=== PATIENT | male | born 1965 | race Caucasian/White ===

== ENCOUNTER 2017-04-18 | Emergency (ER) | payer MEDICAID, SELFPAY ==
[2017-04-18 00:02] VITALS: BP 128/71; PULSE 91; RESP 16; TEMP 36.3; O2SAT 94; BMI 39.6
--- NOTE | 2017-04-18 00:09 | ED.VISSUMM ---
- ER Visit Summary Date of Service: 04/18/17 Chief Complaint: Alcohol intoxication History of Present Illness: The patient is a 51 M since to the emergency department with alcohol intoxication. Patient has reported history of withdrawal seizure. He states that he has been sober for almost 3 and half years. He started drinking again 3 days ago. He states that he has been trying to wean himself off today. Tonight, woody was called because the patient was apparently having reported hallucinations. There was call out for seizure, but there was no seizure activity reported on squad arrival. The patient does have a documented history of pseudoseizures. He states that he was hearing voices tonight also. He denies being suicidal. The patient does appear to be intoxicated. He denies any recent trauma. He has had no recent change in medications. Physical Examination: Vital signs reviewed General: Well-nourished, well-developed Head: Normocephalic, atraumatic Eyes: Pupils equal and reactive, extraocular muscles intact Neck, supple, no lymphadenopathy Heart: Regular rate and rhythm Respiratory: No distress, clear bilaterally Abdomen: Soft, nontender, nondistended, no peritoneal signs Back: Nontender Extremities: Nontender, no edema, no cords Skin: Normal color no rash Neuro: Alert and oriented, no focal or lateralizing deficits Test Results: Screening labs relatively unremarkable. Patient is markedly intoxicated. Emergency Department Course and Treatment: Patient presents with alcohol intoxication. He does have a history of pseudoseizures. The patient states that he felt like he was in withdrawal. He was markedly intoxicated. I initially gave him a dose of oral Librium. He states he felt like it was not working. I did try to convince him that given his history of abstinence and the fact is only been drinking for 2 days and is currently intoxicated that the chances withdrawal is very very low. Patient was more agitated, likely secondary to his alcohol intoxication. He was given Geodon. The patient did have a pseudoseizure. He had dysrhythmic shaking. A did have a conversation with him during this. He was able to answer questions appropriately while having his pseudoseizure. The patient has no evidence of acute withdrawal. I do feel that the bulk of his presenting symptoms are because of his alcohol abuse. The patient will be observed until clinically sober. As long as his repeat evaluation is unremarkable, he will likely be discharged home. If there is change to plan, addendum will be added. Treatment Plan: [] Disposition: Likely discharge Impression: 1. Alcohol intoxication 2. Pseudoseizure This note was generated with [employer] dictation software. It may contain incorrect words, spelling, and punctuation that were not noted in review of the chart prior to signing ED Disposition - Plan for ED Patient: Chief Complaint: ETOH Intox Instructions: ED Alcohol Intoxication Referrals: Edison Shannon MD [Primary Care Provider] -
[2017-04-18] MEDS: chlordiazePOXIDE 25 MG Capsule 50 MG PO (00:21)
[2017-04-18 00:33] LABS: Absolute Lymphocyte Count 3.38 X10^3/ul (0.83-4.51); Absolute Neutrophil Count 7.6 X10^3/uL (2.0-7.7); Basophil# 0.06 X10^3/uL; Basophil% 0.5 % (0-1); Eosinophil# 0.24 X10^3/uL; Hematocrit 43.2 % (40-54); Hemoglobin 15.2 g/dl (13.0-16.5); Lymphocyte # 3.38 X10^3/ul (4.0); Lymphocyte % 28.6 % (19-41); Mean Corp Hgb Conc 35.2 g/gl (32-36); Mean Corpuscular Hgb 31.9 pg (27.0-32.0); Mean Corpuscular Volume 90.8 fL (80-94); Mean Platelet Vol. 9.3 fl (6.2-12.0); Monocyte# 0.52 X10^3/uL; Monocyte% 4.4 % (0-10); Neutrophil # 7.58 X10^3/uL (2.7-7.7); Neutrophil % 64.3 % (47-70); Platelet Count 281 K/mm3 (150-450); RBC Distribution Width CV 14.7 % (11.6-14.6); RBC Distribution Width SD 48.4 fl (35.1-43.9); Red Blood Count 4.76 M/mm3 (4.6-6.2); White Blood Count 11.8 K/mm3 (4.4-11.0)
[2017-04-18 00:34] LABS: POSITIVE COUNT NO; POSITIVE DIFFERENTIAL NO; POSITIVE MORPHOLOGY NO
[2017-04-18 00:45] LABS: Anion Gap 13 (5-15); BUN 8 mg/dL (7-18); BUN/Creat Ratio 10.2 RATIO (10-20); Calcium,Total 8.5 mg/dL (8.5-10.1); Chloride 113 mmol/L (98-107); Creatinine, Serum 0.79 mg/dL (0.70-1.30); EST Glomerular Filtration Rate 111 mL/min (>60); Est Glom Filt Rate - Afr Amer 134 mL/min (>60); Estimated Creatinine Clearance 115.51 ml/min; Glucose 70 mg/dL (74-106); Potassium 3.4 mmol/L (3.5-5.1); Sodium Level 148 mmol/L (136-145)
[2017-04-18 00:46] LABS: Vista UDS pH Range 6
[2017-04-18 01:03] LABS: Amphetamine Urine VISTA NEGATIVE (<1000 ng/mL); Barbiturate Urine VISTA NEGATIVE (< 200 ng/mL); Benzodiazepine Urine VISTA NEGATIVE (< 200 ng/mL); Cocaine Urine VISTA NEGATIVE (< 300 ng/mL); Ecstacy Urine VISTA NEGATIVE (< 500 ng/mL); Methadone Urine VISTA NEGATIVE (< 300 ng/mL); PCP Urine VISTA NEGATIVE (< 25 ng/mL); THC Urine VISTA NEGATIVE (< 50 ng/mL)
--- NOTE | 2017-04-18 01:05 | ED.RN ---
lab called with critical lab results. etoh level 369. Dr. hou made aware. no new orders at this time
[2017-04-18 01:27] VITALS: BP 133/76; PULSE 86; RESP 18; O2SAT 97
[2017-04-18] MEDS: Ziprasidone IM 20 MG/ML VIAL IM (01:31)
--- NOTE | 2017-04-18 01:47 | NURSING ---
CALLED TO BEDSIDE BY S/O FOR PT HAVING A SEIZURE. MD AT BEDSIDE. PT WAS ABLE TO ANSWER QUESTIONS APPROPRIATELY WHILE SHAKING HIS UPPER BODY. PT TOLD WE WOULD BE OBSERVING HIM OVERNIGHT
[2017-04-18 03:00] VITALS: RESP 14
[2017-04-18 05:00] VITALS: RESP 15
[2017-04-18 06:41] VITALS: BP 126/71; PULSE 78; RESP 14; O2SAT 94
[2017-04-18 06:56] VITALS: BP 126/71
== END 2017-04-18 07:25 | disposition home or self-care (01) ==
PROVIDERS: Emergency Provider Emergency Medicine; Family Provider Family Medicine; PCP Family Medicine
DX: R56.9 Unspecified convulsions (principal); F10.129 Alcohol abuse with intoxication, unspecified; Y90.8 Blood alcohol level of 240 mg/100 ml or more; Z72.0 Tobacco use
CPT/HCPCS: 80048; 80307; 80320; 85025; 96372; 99284; G0480; J3486

== ENCOUNTER 2017-04-19 12:27 | Inpatient (IN) | payer MEDICAID, SELFPAY ==
[2017-04-19] VITALS (9 sets, daily range): BP systolic 129–142; BP diastolic 73–85; PULSE 77–98; RESP 16–22; TEMP 36.2–37; O2SAT 92–96; BMI 35.4
--- NOTE | 2017-04-19 13:13 | ED.DCSUM_ITS ---
- ER Visit Summary Date of Service: 04/19/17 Chief Complaint: Alcohol withdrawal History of Present Illness: The patient is a 51 M with a history of alcohol withdrawal. The patient was sober for 3 months and then started drinking about 2 weeks ago. He drank about a half a gallon of hard liquor daily for a week. His last drink was 3 days ago. He started to have withdrawal symptoms yesterday. He is shaking and he had similar symptoms in the past with withdrawal, DTs, and seizures. Physical Examination: Afebrile and vital signs unremarkable. The patient has a tremor, but otherwise appears in no acute distress. He is alert and oriented. Sitting upright. Heart regular. Lungs clear. Abdomen soft. No focal or lysing neurologic abnormalities. Test Results and ED Course: Labs, tox, alcohol level pending. Patient had seizure precautions and was treated with Ativan and phenobarbital while awaiting results. Patient symptoms improved after Ativan. His workup was unremarkable. Received additional dose of Ativan. I spoke with the hospitalist who will admit. Treatment Plan: As above Disposition: Admission Impression: 1. Alcohol withdrawal This note was generated with [employer] dictation software. It may contain incorrect words, spelling, and punctuation that were not noted in review of the chart prior to signing ED Disposition - Plan for ED Patient: Chief Complaint: ETOH Intox Referrals: Edison Shannon MD [Primary Care Provider] -
[2017-04-19] MEDS: LORazepam 2 MG/ML Syringe 1 MG IV ×2 (13:36→14:53)
[2017-04-19 13:53] LABS: Absolute Lymphocyte Count 1.47 X10^3/ul (0.83-4.51); Absolute Neutrophil Count 3.5 X10^3/uL (2.0-7.7); Basophil# 0.04 X10^3/uL; Basophil% 0.7 % (0-1); Eosinophil# 0.13 X10^3/uL; Eosinophils% 2.3 % (0-5); Hematocrit 41.6 % (40-54); Hemoglobin 14.4 g/dl (13.0-16.5); Lymphocyte # 1.47 X10^3/ul (4.0); Lymphocyte % 26.2 % (19-41); Mean Corp Hgb Conc 34.6 g/gl (32-36); Mean Corpuscular Hgb 31.5 pg (27.0-32.0); Mean Platelet Vol. 9.4 fl (6.2-12.0); Monocyte# 0.48 X10^3/uL; Monocyte% 8.6 % (0-10); Neutrophil # 3.48 X10^3/uL (2.7-7.7); Platelet Count 240 K/mm3 (150-450); RBC Distribution Width CV 14.4 % (11.6-14.6); RBC Distribution Width SD 47.2 fl (35.1-43.9); Red Blood Count 4.57 M/mm3 (4.6-6.2); White Blood Count 5.6 K/mm3 (4.4-11.0)
[2017-04-19 13:58] LABS: POSITIVE COUNT NO; POSITIVE DIFFERENTIAL NO; POSITIVE MORPHOLOGY NO
[2017-04-19 13:59] LABS: ALB/GLOB Ratio 1.1 RATIO (0.9-2.4); AST(SGOT) 20 U/L (15-37); Alanine Aminotransfer ALT/SGPT 30 U/L (16-61); Albumin, Serum 3.8 g/dL (3.2-5.0); Alkaline Phosphatase 67 U/L (45-117); Anion Gap 8 (5-15); BUN 6 mg/dL (7-18); BUN/Creat Ratio 6.7 RATIO (10-20); Calcium,Total 8.8 mg/dL (8.5-10.1); Chloride 109 mmol/L (98-107); EST Glomerular Filtration Rate 95 mL/min (>60); Est Glom Filt Rate - Afr Amer 115 mL/min (>60); Estimated Creatinine Clearance 98.19 ml/min; Globulin 3.4 g/dL (2.2-4.2); Glucose 101 mg/dL (74-106); Potassium 3.8 mmol/L (3.5-5.1); Protein, Total 7.2 g/dL (6.4-8.2); Sodium Level 142 mmol/L (136-145)
[2017-04-19 14:49] LABS: Amphetamine Urine VISTA NEGATIVE (<1000 ng/mL); Barbiturate Urine VISTA POSITIVE (< 200 ng/mL); Benzodiazepine Urine VISTA POSITIVE (< 200 ng/mL); Cocaine Urine VISTA NEGATIVE (< 300 ng/mL); Ecstacy Urine VISTA POSITIVE (< 500 ng/mL); Methadone Urine VISTA NEGATIVE (< 300 ng/mL); PCP Urine VISTA NEGATIVE (< 25 ng/mL); THC Urine VISTA POSITIVE (< 50 ng/mL); Vista UDS pH Range 6
--- NOTE | 2017-04-19 15:01 | HP.PCM_ITS ---
Problem List (1) Alcohol withdrawal Status: Acute Qualifiers: Complication of substance-induced condition: with delirium Qualified Code(s ): F10.231 - Alcohol dependence with withdrawal delirium (2) Alcohol withdrawal delirium, acute, hyperactive Status: Acute (3) Benign essential hypertension Status: Chronic (4) Bipolar 1 disorder Status: Chronic (5) Continuous chronic alcoholism Status: Chronic Comment: up to 1 gallon vodka daily (6) Delirium tremens Status: Chronic (7) History of kidney stones Status: Chronic (8) Homelessness Status: Chronic (9) Psychiatric pseudoseizure Status: Chronic (10) Tobacco use Status: Chronic (11) DM type 2 (diabetes mellitus, type 2) Status: Chronic Qualifiers: Diabetes mellitus complication status: without complication Diabetes mellitus roasterman insulin use: without roasterman use Qualified Code(s): E11.9 - Type 2 diabetes mellitus without complications History of Present Illness Date of Admission: 04/19/17 Chief Complaint: Tremulousness The patient is a 51 year old M past medical history is none for hypertension, diabetes mellitus type 2 as well as chronic alcohol use is entered with tremulousness. Patient reports his last alcohol use being almost 48 hours prior to his admission. He admitted to drinking almost half a gallon of whiskey on a daily basis. He had apparently undergone detox 3 years previously. He remained sober for 2 and half years prior to relapsing. Patient on further questioning admitted to auditory hallucinations. Denied visual hallucinations. Patient denies any seizures. Presented to the emergency department and assessment of acute alcohol withdrawal with hyperactivity was made admitted to regular nursing floor for stabilization Past Medical History Past Medical History (Chronic Problems): Chronic Problems DM type 2 (diabetes mellitus, type 2) (Chronic) Bipolar 1 disorder (Chronic) History of kidney stones (Chronic) Continuous chronic alcoholism (Chronic) up to 1 gallon vodka daily Tobacco use (Chronic) Psychiatric pseudoseizure (Chronic) Delirium tremens (Chronic) Homelessness (Chronic) Benign essential hypertension (Chronic) Allergies amoxicillin [Amoxicillin] Allergy (Verified 04/18/17 00:07) Anaphylaxis Penicillins Allergy (Verified 04/18/17 00:07) Anaphylaxis Home Medications: Ambulatory Orders Medication Instructions Recorded Metformin HCl [Glucophage] 500 mg PO DAILY 04/23/16 Amlodipine [Norvasc] 5 mg PO DAILY 12/31/16 Surgical History: no surgical history Smoking Status: Current every day smoker - *Family History Maternal History Items: No pertinent history Paternal History Items: No pertinent history Sibling History Items: No pertinent history Review of Systems Constitutional: Denies: Anorexia, Chills, Fever, Night Sweats, Weight Change HEENT: Denies: Head Aches, Sinus Congestion, Sinus Drainage Cardiovascular: Reports: Palpitations. Denies: Chest Pain, Orthopnea, Paroxysmal Noc. Dyspnea Respiratory: Denies: Cough, Shortness of breath at rest, Shortness of breath upon exertion, Sputum production Gastrointestinal: Denies: Abdominal Pain, Hematemesis, Hematochezia, Nausea, Melena, Vomiting Genitourinary: Denies: Dysuria, Frequency, Hematuria, Urgency Musculoskeletal: Denies: Joint Pain, Joint Tenderness Skin: Denies: Rash Neurological: Reports: Tremor. Denies: Focal weakness, Numbness, Tingling, Seizures Psychiatric: Reports: Anxiety. Denies: Homicidal Ideations, Suicidal Ideations Hematologic/ Lymphatic: Denies: Easy Bruising, Easy Bleeding VTE Information - Inpt Only VTE Present on Admission: No VTE Mechan Device Prophylaxis: Knee High ELBA Hose VTE Pharm Prophylaxis ordered?: Yes Patient Problems: Active and Suspected Problems Alcohol withdrawal (Acute) Alcohol withdrawal delirium, acute, hyperactive (Acute) Objective: GENERAL: cooperative HEENT: Clear conjunctiva, NECK; supple, normal thyroid, CHEST: Clear to auscultation bilaterally, HEART: Regular S1 S2, no audible murmurs ABDOMEN: soft, non-tender, normoactive bowel sounds, RECTAL: deferred EXTREMITIES: No edema, no clubbing, no cyanosis. 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 SKIN: No lesions no erythema, - Physical Exam Vital Signs Temp Pulse Resp BP Pulse Ox 97.2 F L 93 16 139/78 H 92 04/19/17 12:29 04/19/17 14:22 04/19/17 14:22 04/19/17 14:22 04/19/17 13:38 Oxygen Delivery Method Room Air Weight: 108.862 kg Body Mass Index (BMI) 35.4 Finger Stick Blood Glucose 98 Laboratory Tests Past 24 Hrs 04/19/17 04/19/17 04/19/17 13:30 13:30 13:30 WBC 5.6 RBC 4.57 L Hgb 14.4 Hct 41.6 MCV 91.0 MCH 31.5 MCHC 34.6 RDW 14.4 RDW Differential 47.2 H Plt Count 240 MPV 9.4 Immature Gran % (Auto) 0.200 Neut % (Auto) 62.0 Lymph % (Auto) 26.2 Florence % (Auto) 8.6 Eos % (Auto) 2.3 Baso % (Auto) 0.7 Absolute Neuts (auto) 3.5 Absolute Lymphs (auto) 1.47 Total Counted Not Reportable Sodium 142 Potassium 3.8 Chloride 109 H Carbon Dioxide 25.0 Anion Gap 8 BUN 6 L Creatinine 0.90 Estim Creat Clear Calc 98.19 Est GFR (MDRD) Af Amer 115 Est GFR (MDRD) Non-Af 95 BUN/Creatinine Ratio 6.7 L Glucose 101 Calcium 8.8 Total Bilirubin 0.50 AST 20 ALT 30 Alkaline Phosphatase 67 Total Protein 7.2 Albumin 3.8 Globulin 3.4 Albumin/Globulin Ratio 1.1 Urine Opiates Screen Urine Methadone Screen Ur Barbiturates Screen Ur Phencyclidine Scrn Ur Amphetamines Screen U Methamphetamin-MDMA U Benzodiazepines Scrn Urine Cocaine Screen U Cannabinoids Screen Ur Drug Screen Comment Ethyl Alcohol 3.0 04/19/17 Unknown WBC RBC Hgb Hct MCV MCH MCHC RDW RDW Differential Plt Count MPV Immature Gran % (Auto) Neut % (Auto) Lymph % (Auto) Florence % (Auto) Eos % (Auto) Baso % (Auto) Absolute Neuts (auto) Absolute Lymphs (auto) Total Counted Sodium Potassium Chloride Carbon Dioxide Anion Gap BUN Creatinine Estim Creat Clear Calc Est GFR (MDRD) Af Amer Est GFR (MDRD) Non-Af BUN/Creatinine Ratio Glucose Calcium Total Bilirubin AST ALT Alkaline Phosphatase Total Protein Albumin Globulin Albumin/Globulin Ratio Urine Opiates Screen NEGATIVE Urine Methadone Screen NEGATIVE Ur Barbiturates Screen POSITIVE H Ur Phencyclidine Scrn NEGATIVE Ur Amphetamines Screen NEGATIVE U Methamphetamin-MDMA POSITIVE H U Benzodiazepines Scrn POSITIVE H Urine Cocaine Screen NEGATIVE U Cannabinoids Screen POSITIVE H Ur Drug Screen Comment Ethyl Alcohol Assessment/Plan Active and Suspected Problems Alcohol withdrawal (Acute) Alcohol withdrawal delirium, acute, hyperactive (Acute) Patient is a 51 year old gentleman with history of chronic alcohol dependence presenting with acute alcohol withdrawal 1. Acute alcohol withdrawal: Patient has been admitted to regular nursing floor for stabilization using Ativan. Patient was also placed on supplemental multivitamin, folic acid as well as thiamine. He was counseled on cessation prior to being admitted 2. Diabetes mellitus type 2 on metformin: Did continue in addition to Accu- Cheks before meals and at bedtime with sliding scale coverage 3. Morbid obesity with BMI of 35.4 weight loss recommended 4. Hypertension-blood pressure controlled, home medications continued with dose adjustment as needed 5. History of pseudoseizures 6. Tobacco dependence counseled on cessation, offered nicotine patch for tobacco cravings 7. DVT prophylaxis SC Raquel Code Visit Inpatient E&M: 34394 Init Hosp L3
[2017-04-19] MEDS: QUEtiapine 25 MG Tablet PO ×2 (15:57→22:32)
[2017-04-19 16:31] LABS: Bedside Glucose 125 mg/dL (70-110)
[2017-04-19] MEDS: Glucerna Shake 120 ML LIQUID PO (16:58)
[2017-04-19] MEDS: LORazepam 1 MG Tablet PO ×2 (16:58→21:03)
[2017-04-19] MEDS: cloNIDine HCl 0.1 MG Tablet PO ×2 (16:58→21:03)
--- NOTE | 2017-04-19 17:42 | NURSING ---
SEVERE TREMORS CONTINUE AFTER SCHEDULED & PRN MEDS. DR JARVIS NOTIFIED & NEW ORDER RECEIVED.
[2017-04-19] MEDS: LORazepam 2 MG/ML Syringe IV (17:53)
[2017-04-19] MEDS: 0.9% NaCl Peripheral Flush Adult/Peds IV ×2 (17:53→21:03)
[2017-04-19] MEDS: Dicyclomine 10 MG Capsule 20 MG PO (21:03)
[2017-04-19] MEDS: Methocarbamol 750 MG Tablet PO (21:03)
[2017-04-19] MEDS: Pramipexole Di-HCl 0.25 MG Tablet PO (22:30)
[2017-04-20] VITALS (30 sets, daily range): BP systolic 102–150; BP diastolic 70–89; PULSE 46–81; RESP 16–22; TEMP 36.1–37; O2SAT 90–98
[2017-04-20] MEDS: traZODone 50 MG Tablet PO (00:27)
[2017-04-20] MEDS: LORazepam 2 MG/ML Syringe IV ×7 (00:27→11:35)
[2017-04-20] MEDS: 0.9% NaCl Peripheral Flush Adult/Peds IV ×3 (00:30→03:12)
[2017-04-20] MEDS: cloNIDine HCl 0.1 MG Tablet PO ×2 (01:38→06:15)
[2017-04-20] MEDS: Dicyclomine 10 MG Capsule 20 MG PO (03:12)
[2017-04-20] MEDS: Methocarbamol 750 MG Tablet PO (03:12)
[2017-04-20] MEDS: QUEtiapine 25 MG Tablet PO (06:15)
[2017-04-20 06:45] LABS: Bedside Glucose 105 mg/dL (70-110)
[2017-04-20 07:36] LABS: Bedside Glucose 110 mg/dL (70-110)
--- NOTE | 2017-04-20 07:42 | PCM.PN.HOSP ---
Patient Problems: Active and Suspected Problems Alcohol withdrawal (Acute) Alcohol withdrawal delirium, acute, hyperactive (Acute) Subjective: Patient is a 51 year old gentleman with history of chronic alcohol dependence presenting with acute alcohol withdrawal. Was admitted to regular nursing floor however he became more tremulous with severe auditory hallucination decision was made to transfer patient to the ICU on 04/20/2016 Objective: GENERAL: cooperative HEENT: Clear conjunctiva, NECK; supple, normal thyroid, CHEST: Clear to auscultation bilaterally, HEART: Regular S1 S2, no audible murmurs ABDOMEN: soft, non-tender, normoactive bowel sounds, RECTAL: deferred EXTREMITIES: No edema, no clubbing, no cyanosis. NECK CUTTER: Awake, no lateralizing signs. SKIN: No lesions no erythema, Vitals/I&O's: Vital Signs Temp Pulse Resp BP Pulse Ox 98.5 F 80 18 130/89 H 93 04/20/17 07:39 04/20/17 07:39 04/20/17 07:39 04/20/17 07:39 04/20/17 07:39 Oxygen Delivery Method Room Air Weight: 109 kg Intake and Output for Last 24 Hours 04/18/17 04/19/17 04/20/17 23:59 23:59 23:59 Intake Total 560 / 560 Balance 560 / 560 Laboratory Results 04/19/17 16:28: POC Glucose 125 H 04/19/17 : Urine Opiates Screen NEGATIVE, Urine Methadone Screen NEGATIVE, Ur Barbiturates Screen POSITIVE H, Ur Phencyclidine Scrn NEGATIVE, Ur Amphetamines Screen NEGATIVE, U Methamphetamin-MDMA POSITIVE H, U Benzodiazepines Scrn POSITIVE H, Urine Cocaine Screen NEGATIVE, U Cannabinoids Screen POSITIVE H, Ur Drug Screen Comment 04/20/17 06:33: POC Glucose 105 04/20/17 07:28: POC Glucose 110 Current Medications Amlodipine Besylate (Norvasc) 5 mg PO DAILY [facility] Clonidine (Catapres) 0.1 mg PO Q4 [facility] Last Admin: 04/20/17 06:15 Dose: 0.1 mg Dicyclomine HCl (Bentyl) 20 mg PO Q6H PRN PRN PRN Reason: abdominal discomfort Last Admin: 04/20/17 03:12 Dose: 20 mg Enoxaparin Sodium (Lovenox) 40 mg SC DAILY@1000 [facility] Hydroxyzine Pamoate (Vistaril) 50 mg PO Q6H PRN PRN PRN Reason: Mild Anxiety (score 1/3) Last Admin: 04/20/17 06:15 Dose: 50 mg Thiamine HCl 200 mg/ Sodium (Chloride) 52 mls @ 200 mls/hr IV DAILY [facility] Lorazepam (Ativan) 1 mg PO Q4 [facility] PRN Reason: Taper Stop: 04/22/17 17:59 Last Admin: 04/20/17 06:19 Dose: Not Given Lorazepam (Ativan) 2 mg PO Q2H PRN PRN; Protocol PRN Reason: CIWA score > 8 but <15 Lorazepam (Ativan) 2 mg PO UD PRN; Protocol PRN Reason: CIWA score >/=15. Lorazepam (Ativan) 2 mg IV Q2H PRN PRN; Protocol PRN Reason: CIWA score > 8 but <15 Last Admin: 04/20/17 00:27 Dose: 2 mg Lorazepam (Ativan) 2 mg IV UD PRN; Protocol PRN Reason: CIWA score >/=15. Last Admin: 04/20/17 06:15 Dose: 2 mg Magnesium Hydroxide (Milk Of Magnesia) 30 ml PO DAILY PRN PRN PRN Reason: Constipation Metformin HCl (Glucophage) 500 mg PO DAILYCM [facility] Methocarbamol (Methocarbamol) 750 mg PO Q6H PRN PRN PRN Reason: Muscle Aches Last Admin: 04/20/17 03:12 Dose: 750 mg Nutritional Formula (Lactose Free) (Glucerna Shake) 120 ml PO 4X/DAY [facility] Last Admin: 04/19/17 21:04 Dose: Not Given Pramipexole Dihydrochloride (Mirapex) 0.25 mg PO Q12H PRN PRN PRN Reason: Restless legs Last Admin: 04/19/17 22:30 Dose: 0.25 mg Quetiapine Fumarate (Seroquel) 25 mg PO Q6H PRN PRN PRN Reason: Moderate Anxiety (score 2/3) Last Admin: 04/20/17 06:15 Dose: 25 mg Sodium Chloride () 5 - 30 ml IV UD PRN PRN Reason: SALINE FLUSH Last Admin: 04/20/17 03:12 Dose: 10 ml Trazodone HCl (Desyrel) 50 mg PO QHS [facility] Last Admin: 04/20/17 00:27 Dose: 50 mg Assessment/Plan Active and Suspected Problems Alcohol withdrawal (Acute) Alcohol withdrawal delirium, acute, hyperactive (Acute) Patient is a 51 year old gentleman with history of chronic alcohol dependence presenting with acute alcohol withdrawal 1. Acute alcohol withdrawal: Patient has been admitted to regular nursing floor for stabilization using Ativan. Patient was also placed on supplemental multivitamin, folic acid as well as thiamine. He was counseled on cessation prior to being admitted. 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 Diabetes mellitus type 2 on metformin: Did continue in addition to Accu-Cheks before meals and at bedtime with sliding scale coverage 3. Morbid obesity with BMI of 35.4 weight loss recommended 4. Hypertension-blood pressure controlled, home medications continued with dose adjustment as needed 5. History of pseudoseizures 6. Tobacco dependence counseled on cessation, offered nicotine patch for tobacco cravings 7. DVT prophylaxis SC Lovenox Code Visit Inpatient E&M: 58411 Subs Hosp L3
--- NOTE | 2017-04-20 07:49 | PN_ITS ---
Patient Problems: Active and Suspected Problems Alcohol withdrawal (Acute) Alcohol withdrawal delirium, acute, hyperactive (Acute) Subjective: Patient is a 51 year old gentleman with history of chronic alcohol dependence presenting with acute alcohol withdrawal. Was admitted to regular nursing floor however he became more tremulous with severe auditory hallucination decision was made to transfer patient to the ICU on 04/20/2016 Objective: GENERAL: cooperative HEENT: Clear conjunctiva, NECK; supple, normal thyroid, CHEST: Clear to auscultation bilaterally, HEART: Regular S1 S2, no audible murmurs ABDOMEN: soft, non-tender, normoactive bowel sounds, RECTAL: deferred EXTREMITIES: No edema, no clubbing, no cyanosis. VISUAL ARTIST: Awake, no lateralizing signs. SKIN: No lesions no erythema, Vitals/I&O's: Vital Signs Temp Pulse Resp BP Pulse Ox 98.5 F 80 18 130/89 H 93 04/20/17 07:39 04/20/17 07:39 04/20/17 07:39 04/20/17 07:39 04/20/17 07:39 Oxygen Delivery Method Room Air Weight: 109 kg Intake and Output for Last 24 Hours 04/18/17 04/19/17 04/20/17 23:59 23:59 23:59 Intake Total 560 / 560 Balance 560 / 560 Laboratory Results 04/19/17 16:28: POC Glucose 125 H 04/19/17 : Urine Opiates Screen NEGATIVE, Urine Methadone Screen NEGATIVE, Ur Barbiturates Screen POSITIVE H, Ur Phencyclidine Scrn NEGATIVE, Ur Amphetamines Screen NEGATIVE, U Methamphetamin-MDMA POSITIVE H, U Benzodiazepines Scrn POSITIVE H, Urine Cocaine Screen NEGATIVE, U Cannabinoids Screen POSITIVE H, Ur Drug Screen Comment 04/20/17 06:33: POC Glucose 105 04/20/17 07:28: POC Glucose 110 Current Medications Amlodipine Besylate (Norvasc) 5 mg PO DAILY [facility] Clonidine (Catapres) 0.1 mg PO Q4 [facility] Last Admin: 04/20/17 06:15 Dose: 0.1 mg Dicyclomine HCl (Bentyl) 20 mg PO Q6H PRN PRN PRN Reason: abdominal discomfort Last Admin: 04/20/17 03:12 Dose: 20 mg Enoxaparin Sodium (Lovenox) 40 mg SC DAILY@1000 [facility] Hydroxyzine Pamoate (Vistaril) 50 mg PO Q6H PRN PRN PRN Reason: Mild Anxiety (score 1/3) Last Admin: 04/20/17 06:15 Dose: 50 mg Thiamine HCl 200 mg/ Sodium (Chloride) 52 mls @ 200 mls/hr IV DAILY [facility] Lorazepam (Ativan) 1 mg PO Q4 [facility]IER PRN Reason: Taper Stop: 04/22/17 17:59 Last Admin: 04/20/17 06:19 Dose: Not Given Lorazepam (Ativan) 2 mg PO Q2H PRN PRN; Protocol PRN Reason: CIWA score > 8 but <15 Lorazepam (Ativan) 2 mg PO UD PRN; Protocol PRN Reason: CIWA score >/=15. Lorazepam (Ativan) 2 mg IV Q2H PRN PRN; Protocol PRN Reason: CIWA score > 8 but <15 Last Admin: 04/20/17 00:27 Dose: 2 mg Lorazepam (Ativan) 2 mg IV UD PRN; Protocol PRN Reason: CIWA score >/=15. Last Admin: 04/20/17 06:15 Dose: 2 mg Magnesium Hydroxide (Milk Of Magnesia) 30 ml PO DAILY PRN PRN PRN Reason: Constipation Metformin HCl (Glucophage) 500 mg PO DAILYCM [facility] Methocarbamol (Methocarbamol) 750 mg PO Q6H PRN PRN PRN Reason: Muscle Aches Last Admin: 04/20/17 03:12 Dose: 750 mg Nutritional Formula (Lactose Free) (Glucerna Shake) 120 ml PO 4X/DAY [facility] Last Admin: 04/19/17 21:04 Dose: Not Given Pramipexole Dihydrochloride (Mirapex) 0.25 mg PO Q12H PRN PRN PRN Reason: Restless legs Last Admin: 04/19/17 22:30 Dose: 0.25 mg Quetiapine Fumarate (Seroquel) 25 mg PO Q6H PRN PRN PRN Reason: Moderate Anxiety (score 2/3) Last Admin: 04/20/17 06:15 Dose: 25 mg Sodium Chloride () 5 - 30 ml IV UD PRN PRN Reason: SALINE FLUSH Last Admin: 04/20/17 03:12 Dose: 10 ml Trazodone HCl (Desyrel) 50 mg PO QHS [facility] Last Admin: 04/20/17 00:27 Dose: 50 mg Assessment/Plan Active and Suspected Problems Alcohol withdrawal (Acute) Alcohol withdrawal delirium, acute, hyperactive (Acute) Patient is a 51 year old gentleman with history of chronic alcohol dependence presenting with acute alcohol withdrawal 1. Acute alcohol withdrawal: Patient has been admitted to regular nursing floor for stabilization using Ativan. Patient was also placed on supplemental multivitamin, folic acid as well as thiamine. He was counseled on cessation prior to being admitted. Was transferred to ICU in view of his worsening DTs patient placed to bottom man 2. Diabetes mellitus type 2 on metformin: Did continue in addition to Accu- Cheks before meals and at bedtime with sliding scale coverage 3. Morbid obesity with BMI of 35.4 weight loss recommended 4. Hypertension-blood pressure controlled, home medications continued with dose adjustment as needed 5. History of pseudoseizures 6. Tobacco dependence counseled on cessation, offered nicotine patch for tobacco cravings 7. DVT prophylaxis SC Lovenox Code Visit Inpatient E&M: 14065 Subs Hosp L3
--- NOTE | 2017-04-20 08:19 | CON.PCM_ITS ---
Reason for Consult Date of Consultation: 04/20/17 Reason for Consultation: Alcohol withdrawal History of Present Illness: The patient is a 51-year-old male, with a history as outlined below, who presented to the emergency department on April 19 and acute alcohol withdrawal. The patient has a protracted course of alcohol dependence, consuming upwards of a gallon of hard liquor daily. The patient reportedly experienced a 3 month period of sobriety, prior to relapsing 2 weeks before his presentation to the emergency department. At the present time, the patient is too encephalopathic to obtain any additional history from. He does have a documented history of bipolar disorder along with tobacco use. The patient was initially been maintained on the general medical floor for his alcohol withdrawal symptoms. The patient was started on Ativan for withdrawal symptoms. However, overnight, does not appear that he received any benzodiazepines. During the morning hours of April 20, the patient was noted to be exceedingly tremulous with high CIWA scores, which prompted his transfer to the medical intensive care unit for ongoing management. Shortly upon his arrival, the patient was started on a Precedex drip. Throughout the course of the morning in the ICU, the patient did have 2 separate episodes of what appeared to be seizure activity. He was given IV Ativan on each occasion. I did call and briefly speak with neurology, who recommended that the patient could be placed on Keppra twice daily for alcohol withdrawal seizures. Past Medical History Past Medical History (Chronic Problems): Chronic Problems DM type 2 (diabetes mellitus, type 2) (Chronic) Bipolar 1 disorder (Chronic) History of kidney stones (Chronic) Continuous chronic alcoholism (Chronic) up to 1 gallon vodka daily Tobacco use (Chronic) Psychiatric pseudoseizure (Chronic) Delirium tremens (Chronic) Homelessness (Chronic) Benign essential hypertension (Chronic) Allergies amoxicillin [Amoxicillin] Allergy (Verified 04/18/17 00:07) Anaphylaxis Penicillins Allergy (Verified 04/18/17 00:07) Anaphylaxis Home Medications: Ambulatory Orders Medication Instructions Recorded Metformin HCl [Glucophage] 500 mg PO DAILY 04/23/16 Amlodipine [Norvasc] 5 mg PO DAILY 12/31/16 Surgical History: no surgical history Smoking Status: Current every day smoker - *Family History Maternal History Items: No pertinent history Paternal History Items: No pertinent history Sibling History Items: No pertinent history Review of Systems Constitutional: Denies: Chills, Fever HEENT: Denies: Head Aches, Sinus Congestion, Sinus Drainage Cardiovascular: Denies: Chest Pain, Palpitations Respiratory: Denies: Cough, Shortness of breath at rest, Sputum production Gastrointestinal: Denies: Abdominal Pain, Nausea, Vomiting Genitourinary: Denies: Dysuria Musculoskeletal: Reports: Back Pain Skin: Denies: Rash, Wounds Neurological: Reports: Confusion, Tremor Psychiatric: Reports: Anxiety, Depression Hematologic/ Lymphatic: Denies: Easy Bruising, Easy Bleeding Patient Problems: Active and Suspected Problems Alcohol withdrawal (Acute) Alcohol withdrawal delirium, acute, hyperactive (Acute) Objective: The patient's most recent lab work, culture data and imaging studies have all been personally reviewed. - Physical Exam General: No apparent distress, Lethargic HEENT: Atraumatic, Normocephalic Oral: No Gingival or Mucosal Lesions/ Ulcerations, Dry Mucosa Neck: Supple, No Nodes, Trachea Midline Lungs: No rhonchi, No wheeze, No rales, Diminished Cardiovascular: Regular rate, Regular Rhythm, Normal S1, Normal S2, No murmurs Abdomen: Bowel Sounds Present, Soft, Non Tender, Obese Extremities: No clubbing, No cyanosis, No edema Skin: No rashes, No breakdown Musculoskeletal: No Muscle Wasting Lymphatic: No Cervical, Supraclavicular, or Inguinal Adenopathy Neurological: - - Tremulous. No focal deficits. Psych/Mental Status: Anxious Vital Signs Temp Pulse Resp BP Pulse Ox 98.5 F 81 18 130/89 H 95 04/20/17 07:41 04/20/17 07:41 04/20/17 07:41 04/20/17 07:41 04/20/17 07:41 Oxygen Delivery Method Room Air Weight: 240 lb 4.862 oz Intake and Output for Last 24 Hours 04/18/17 04/19/17 04/20/17 23:59 23:59 23:59 Intake Total 560 / 560 Balance 560 / 560 Laboratory Tests Past 24 Hrs 04/19/17 Unknown Urine Opiates Screen NEGATIVE Urine Methadone Screen NEGATIVE Ur Barbiturates Screen POSITIVE H Ur Phencyclidine Scrn NEGATIVE Ur Amphetamines Screen NEGATIVE U Methamphetamin-MDMA POSITIVE H U Benzodiazepines Scrn POSITIVE H Urine Cocaine Screen NEGATIVE U Cannabinoids Screen POSITIVE H Ur Drug Screen Comment POC Glucose 04/20/17 04/20/17 04/19/17 07:28 06:33 16:28 POC Glucose 110 105 125 H Assessment/Plan Active and Suspected Problems Alcohol withdrawal (Acute) Alcohol withdrawal delirium, acute, hyperactive (Acute) RECOMMENDATIONS: 1. Start Precedex drip for alcohol withdrawal symptoms. 2. Start Keppra for alcohol withdrawal seizures 3. Maintain seizure precautions 4. Ativan as needed for breakthrough seizure activity 5. Patient to remain n.p.o. 6. Continue thiamine and folate repletion IMPRESSIONS: 1. Acute alcohol withdrawal The patient was transferred to the ICU on the morning of April 20 and started on a Precedex drip to control his alcohol withdrawal symptoms. Continue thiamine and folate repletion. Discontinue scheduled IV Ativan. Patient to remain n.p.o. for now 2. Alcohol withdrawal seizures Although the patient has a documented history of psychiatric pseudoseizures, I do not see where an EEG or neurology consultation has ever been completed. He has now had 2 separate episodes of seizures this morning. He has been treated with as needed Ativan accordingly. Following a discussion with neurology, the patient will be started on Keppra twice daily empirically and IV Ativan can be continued on an as-needed basis for any breakthrough activity. Maintain seizure precautions. 3. Diabetes/hypertension/tobacco dependence/obesity Complicates care, management, recovery and prognosis. Discontinue metformin and initiate the patient on sliding scale insulin coverage and Accu-Cheks every 6 hours, while he remains n.p.o. This note was generated with [employer] dictation software. It may contain incorrect words, spelling, and punctuation that were not noted in checking the note before signing. Code Visit Inpatient E&M: 67132 Init Hosp L3
[2017-04-20] MEDS: LORazepam 1 MG Tablet 2 MG PO (08:20)
--- NOTE | 2017-04-20 08:28 | NURSING ---
REPORT CALLED TO [facility]
--- NOTE | 2017-04-20 08:30 | NURSING ---
IN ICU 3 per bed from [facility], report recd from [facility]
--- NOTE | 2017-04-20 09:15 | NURSING ---
Seizure like activity, tonic clonic jerking bilat arms. pt able to say single sylable words. Dr. Negron present in room. Ativan 2mg IV push given. precedex increased to 0.8 mcq/kg/hr.
[2017-04-20 10:09] LABS: M R Staph aureus DNA By PCR Negative (Negative); Probe Check PASS; Specimen Processing Control PASS
[2017-04-20] MEDS: Enoxaparin 40 MG/0.4 ML Syringe SC (11:25)
--- NOTE | 2017-04-20 11:30 | NURSING ---
pt again w/clonic tonic jerking bilat arms, no speech this time. Dr. Negron again present in pt room. Ativan 2mg IV push given.
[2017-04-20 12:01] LABS: Bedside Glucose 98 mg/dL (70-110)
[2017-04-20 17:45] LABS: Bedside Glucose 95 mg/dL (70-110)
--- NOTE | 2017-04-20 18:00 | NURSING ---
pt visualized on camera by 2 [facility] ICU staff shaking bilat arms, stop, look around, call for help then close his eyes and resume shaking of bilat arms.
--- NOTE | 2017-04-20 21:43 | NURSING ---
Pt. upset about being NPO. Is verbally swearing saying that he didn't sign up for this. Tried explaining that he choked earlier and that he can have mouth swabs. Oral care provided and Precedex increased.
[2017-04-20 23:41] LABS: Bedside Glucose 112 mg/dL (70-110)
[2017-04-21] VITALS (22 sets, daily range): BP systolic 95–130; BP diastolic 64–93; PULSE 48–94; RESP 16–21; TEMP 36.2–36.8; O2SAT 92–96
--- NOTE | 2017-04-21 06:43 | PN_ITS ---
Subjective: The patient was seen and examined at the bedside this morning. Events from the last 24 hours have been reviewed. The patient is currently afebrile, bradycardic and maintaining appropriate oxygen saturations on 3 L/min via nasal cannula. Patient reportedly became agitated overnight with the nursing staff. Per their account, he also had a witnessed aspiration event yesterday evening when given Sprite to drink. He remains on Precedex at 0.7. He is now n.p.o. The patient's last CIWA score at 0600 was 5. Objective: The patient's most recent lab work, culture data and imaging studies have all been personally reviewed. General: No apparent distress, Lethargic HEENT: Atraumatic, Normocephalic Oral: No Gingival or Mucosal Lesions/ Ulcerations, Dry Mucosa Neck: Supple, No Nodes, Trachea Midline Lungs: No rhonchi, No wheeze, No rales, Diminished Cardiovascular: Normal S1, Normal S2, No murmurs, Bradycardic Abdomen: Bowel Sounds Present, Soft, Non Tender, Obese Extremities: No clubbing, No cyanosis, No edema Skin: - - No significant change from previous Musculoskeletal: No Muscle Wasting Lymphatic: No Cervical, Supraclavicular, or Inguinal Adenopathy Neurological: - - No focal neurological deficits. Psych/Mental Status: - - Somnolent but arousable Vital Signs Temp Pulse Resp BP Pulse Ox 97.1 F L 50 L 18 124/83 H 93 04/21/17 04:00 04/21/17 06:00 04/21/17 06:00 04/21/17 06:00 04/21/17 06:00 Oxygen Flow Rate 3 Oxygen Delivery Method Nasal Cannula Weight: 248 lb 14.43 oz Intake and Output for Last 24 Hours 04/19/17 04/20/17 04/21/17 23:59 23:59 23:59 Intake Total 560 / 560 715 / 715 142 / 142 Output Total 600 / 600 Balance 560 / 560 115 / 115 142 / 142 Labs (Last 48 Hours) 04/19/17 04/19/17 04/20/17 16:28 Unknown 06:33 Urine Opiates Screen NEGATIVE Urine Methadone Screen NEGATIVE Ur Barbiturates Screen POSITIVE H Ur Phencyclidine Scrn NEGATIVE Ur Amphetamines Screen NEGATIVE U Methamphetamin-MDMA POSITIVE H U Benzodiazepines Scrn POSITIVE H Urine Cocaine Screen NEGATIVE U Cannabinoids Screen POSITIVE H Ur Drug Screen Comment MRSA (PCR) POC Glucose 125 H 105 04/20/17 04/20/17 04/20/17 07:28 08:40 11:43 Urine Opiates Screen Urine Methadone Screen Ur Barbiturates Screen Ur Phencyclidine Scrn Ur Amphetamines Screen U Methamphetamin-MDMA U Benzodiazepines Scrn Urine Cocaine Screen U Cannabinoids Screen Ur Drug Screen Comment MRSA (PCR) Negative POC Glucose 110 98 04/20/17 04/20/17 17:38 23:32 Urine Opiates Screen Urine Methadone Screen Ur Barbiturates Screen Ur Phencyclidine Scrn Ur Amphetamines Screen U Methamphetamin-MDMA U Benzodiazepines Scrn Urine Cocaine Screen U Cannabinoids Screen Ur Drug Screen Comment MRSA (PCR) POC Glucose 95 112 H Assessment/Plan Active and Suspected Problems Alcohol withdrawal (Acute) Alcohol withdrawal delirium, acute, hyperactive (Acute) RECOMMENDATIONS: 1. Wean off Precedex drip and start Librium taper. 2. Continue Keppra for alcohol withdrawal seizures. 3. Maintain seizure precautions 4. Ativan as needed for breakthrough seizure activity 5. Perform swallow evaluation once the patient's mentation has improved. 6. Continue thiamine and folate repletion 7. Obtain plain film chest x-ray, given reported aspiration event IMPRESSIONS: 1. Acute alcohol withdrawal The patient was transferred to the ICU on the morning of April 20 and started on a Precedex drip to control his alcohol withdrawal symptoms. His Precedex drip will be weaned off today and he will be started on a Librium taper. Continue thiamine and folate repletion. Swallow evaluation can be completed by nursing staff today. 2. Alcohol withdrawal seizures Although the patient has a documented history of psychiatric pseudoseizures, I do not see where an EEG or neurology consultation has ever been completed. Following a discussion with neurology, the patient will be started on Keppra twice daily empirically and IV Ativan can be continued on an as-needed basis for any breakthrough activity. Maintain seizure precautions. 3. Diabetes/hypertension/tobacco dependence/obesity Complicates care, management, recovery and prognosis. Continue sliding scale insulin coverage and Accu-Cheks every 6 hours, while he remains n.p.o. This note was generated with [employer] software. It may contain incorrect words, spelling, and punctuation that were not noted in checking the note before signing. Code Visit Inpatient E&M: 64980 Subs Hosp L3
--- NOTE | 2017-04-21 07:17 | PN_ITS ---
Patient Problems: Active and Suspected Problems Alcohol withdrawal (Acute) Alcohol withdrawal delirium, acute, hyperactive (Acute) Subjective: Patient was started on Keppra as a result of alcohol withdrawal seizures. Remains in ICU on Precedex drip. Objective: GENERAL: lethargic HEENT: Clear conjunctiva, NECK; supple, normal thyroid, CHEST: Clear to auscultation bilaterally, HEART: Regular S1 S2, no audible murmurs ABDOMEN: soft, non-tender, normoactive bowel sounds, RECTAL: deferred EXTREMITIES: No edema, no clubbing, no cyanosis. 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 SKIN: No lesions no erythema, Vitals/I&O's: Vital Signs Temp Pulse Resp BP Pulse Ox 97.1 F L 50 L 18 124/83 H 93 04/21/17 04:00 04/21/17 06:00 04/21/17 06:00 04/21/17 06:00 04/21/17 06:00 Oxygen Flow Rate 3 Oxygen Delivery Method Nasal Cannula Weight: 112.9 kg Intake and Output for Last 24 Hours 04/19/17 04/20/17 04/21/17 23:59 23:59 23:59 Intake Total 560 / 560 715 / 715 142 / 142 Output Total 600 / 600 Balance 560 / 560 115 / 115 142 / 142 Laboratory Results 04/20/17 07:28: POC Glucose 110 04/20/17 08:40: MRSA (PCR) Negative 04/20/17 11:43: POC Glucose 98 04/20/17 17:38: POC Glucose 95 04/20/17 23:32: POC Glucose 112 H Current Medications Amlodipine Besylate (Norvasc) 5 mg PO DAILY [facility] Last Admin: 04/20/17 11:20 Dose: Not Given Dicyclomine HCl (Bentyl) 20 mg PO Q6H PRN PRN PRN Reason: abdominal discomfort Last Admin: 04/20/17 03:12 Dose: 20 mg Enoxaparin Sodium (Lovenox) 40 mg SC DAILY@1000 [facility] Last Admin: 04/20/17 11:25 Dose: 40 mg Thiamine HCl 200 mg/ Sodium (Chloride) 52 mls @ 200 mls/hr IV DAILY [facility] Last Admin: 04/20/17 11:17 Dose: 200 mls/hr Dexmedetomidine HCl 400 mcg/ (Sodium Chloride) 100 mls @ 13.62 mls/hr IV .[id number] [facility] PRN Reason: 0.5 MCG/KG/HR Last Admin: 04/21/17 05:20 Dose: 13.62 mls/hr Sodium Chloride () 250 mls @ 15 mls/hr IV .[id number] PRN PRN Reason: SALINE FLUSH Sodium Chloride () 250 mls @ 15 mls/hr IV .[id number] PRN PRN Reason: SALINE FLUSH Levetiracetam 750 mg/ N/A 150 mls @ 600 mls/hr IV Q12 [facility] Last Admin: 04/20/17 21:34 Dose: 600 mls/hr Lorazepam (Ativan) 2 mg IV Q1H PRN PRN PRN Reason: SEIZURES Last Admin: 04/20/17 11:35 Dose: 2 mg Magnesium Hydroxide (Milk Of Magnesia) 30 ml PO DAILY PRN PRN PRN Reason: Constipation Nutritional Formula (Lactose Free) (Glucerna Shake) 120 ml PO 4X/DAY [facility] Last Admin: 04/20/17 21:30 Dose: Not Given Sodium Chloride () 5 - 30 ml IV UD PRN PRN Reason: SALINE FLUSH Last Admin: 04/20/17 03:12 Dose: 10 ml Assessment/Plan Active and Suspected Problems Alcohol withdrawal (Acute) Alcohol withdrawal delirium, acute, hyperactive (Acute) Patient is a 51 year old gentleman with history of chronic alcohol dependence presenting with acute alcohol withdrawal 1. Acute alcohol withdrawal: Patient has been admitted to regular nursing floor for stabilization using Ativan. Patient was also placed on supplemental multivitamin, folic acid as well as thiamine. He was counseled on cessation prior to being admitted. Was transferred to ICU in view of his worsening DTs patient placed to japanese professor she was initiated on Precedex drip 2. Diabetes mellitus type 2 on metformin: Did continue in addition to Accu- Cheks before meals and at bedtime with sliding scale coverage 3. Morbid obesity with BMI of 35.4 weight loss recommended 4. Hypertension-blood pressure controlled, home medications continued with dose adjustment as needed 5. Call withdrawal seizures patient was started on Keppra 6. Tobacco dependence counseled on cessation, offered nicotine patch for tobacco cravings 7. DVT prophylaxis SC Lovenox Code Visit Inpatient E&M: 27531 [facility] Hosp L3
--- NOTE | 2017-04-21 07:31 | RAD_ITS ---
STUDY: X-RAY CHEST REASON FOR EXAM: Male, 51 years old. Shortness of breath. Dyspnea. TECHNIQUE: Single AP portable view of the chest. COMPARISON: Comparison is made with prior study dated August 22, 2014. FINDINGS: EKG electrodes are seen. There now is evidence of infiltration in the right lower lobe suggestive of early pneumonia. Follow-up is recommended. There is no demonstrated pleural abnormality. Normal size heart. Normal mediastinum and bridget. Normal visualized pulmonary arteries. There is atherosclerotic calcification of the aortic arch with tortuosity. Normal visualized thoracic spine. Normal visualized ribs, clavicles, and shoulders. There is no demonstrated abnormality of the visualized soft tissue structures of the upper abdomen. RAD/Chest 1 View (Portable) IMPRESSION: Right infrahilar infiltrate. Follow-up is recommended. Electronically Signed: Ismael Tellez MD at 11:36 EST Tel [phone], Service support ,
[2017-04-21] MEDS: Enoxaparin 40 MG/0.4 ML Syringe SC (08:47)
[2017-04-21] MEDS: amLODIPine 5 MG Tablet PO (08:49)
[2017-04-21] MEDS: LORazepam 2 MG/ML Syringe IV (08:50)
[2017-04-21] MEDS: Dicyclomine 10 MG Capsule 20 MG PO (08:53)
[2017-04-21 09:09] LABS: Mucous, Urine 0 SEEN /hpf (<or=2+); Red Blood Cells-Urine 0 SEEN /hpf (0-5); Squamous Epithelial Cells - UA 0 SEEN /hpf (0-5)
[2017-04-21 09:13] LABS: Color, Urine Yellow (Yellow); Glucose, Dipstick Normal (Normal); Ketone-Dipstick Negative (Negative); Leukocyte Esterase-Dipstick 25 /ul (Negative); Nitrite-Dipstick Negative (Negative); Occult Blood-Urine Negative /ul (Negative); Protein-Dipstick 15 mg/dl (Negative); Urine Bilirubin Dipstick Negative (Negative); Urine Clarity Clear (Clear); Urine Urobilinogen 1 mg/dl (Normal)
[2017-04-21 09:20] LABS: Bacteria 1+ /hpf (None Seen); White Blood Cells 0-5 SEEN /hpf (0-5)
[2017-04-21] MEDS: levETIRAcetam 750 MG Tablet PO (10:02)
[2017-04-21] MEDS: chlordiazePOXIDE 25 MG Capsule 50 MG PO ×2 (10:03→14:56)
[2017-04-21 10:51] LABS: AST(SGOT) 14 U/L (15-37); Alanine Aminotransfer ALT/SGPT 27 U/L (16-61); Albumin, Serum 3.3 g/dL (3.2-5.0); Alkaline Phosphatase 65 U/L (45-117); Anion Gap 6 (5-15); BUN 10 mg/dL (7-18); BUN/Creat Ratio 11.7 RATIO (10-20); Calcium,Total 8.4 mg/dL (8.5-10.1); Chloride 107 mmol/L (98-107); Creatinine, Serum 0.86 mg/dL (0.70-1.30); EST Glomerular Filtration Rate 100 mL/min (>60); Est Glom Filt Rate - Afr Amer 121 mL/min (>60); Estimated Creatinine Clearance 102.76 ml/min; Globulin 3.3 g/dL (2.2-4.2); Glucose 88 mg/dL (74-106); Potassium 4.1 mmol/L (3.5-5.1); Protein, Total 6.6 g/dL (6.4-8.2); Sodium Level 141 mmol/L (136-145)
[2017-04-21] MEDS: LORazepam 2 MG/ML Syringe 1 MG IV (13:50)
--- NOTE | 2017-04-21 17:30 | NURSING ---
Called into patients room. Patient requesting to leave AMA, upon assessment patient was found to be alert and oriented, conversing appropriately and calmly. Dr Mccormick notified and patient signed out AMA. Huggins catheter and peripheral IV's removed per policy, patient tolerated without complication.
--- NOTE | 2017-04-21 17:47 | DS.PCM_ITS ---
Discharge Date and Diagnosis - Problem List Patient Problems: Active and Suspected Problems Alcohol withdrawal (Acute) Alcohol withdrawal delirium, acute, hyperactive (Acute) Date of Admission: 04/19/17 Date of Discharge: 04/21/17 - Primary Discharge Diagnosis Active and Suspected Problems Alcohol withdrawal (Acute) Alcohol withdrawal delirium, acute, hyperactive (Acute) - Secondary Discharge Diagnosis Chronic Problems DM type 2 (diabetes mellitus, type 2) (Chronic) Bipolar 1 disorder (Chronic) History of kidney stones (Chronic) Continuous chronic alcoholism (Chronic) up to 1 gallon vodka daily Tobacco use (Chronic) Psychiatric pseudoseizure (Chronic) Delirium tremens (Chronic) Homelessness (Chronic) Benign essential hypertension (Chronic) Hospital Course and Treatment Operations: None Summary of Care Provided: Patient is a 51 year old gentleman with history of chronic alcohol dependence presenting with acute alcohol withdrawal 1. Acute alcohol withdrawal: Patient has been admitted to regular nursing floor for stabilization using Ativan. Patient was also placed on supplemental multivitamin, folic acid as well as thiamine. He was counseled on cessation prior to being admitted. Was transferred to ICU in view of his worsening DTs patient placed to poker room manager she was initiated on Precedex drip, subsequently weaned off once patient condition stabilized. Patient elected to sign out AGAINST MEDICAL ADVICE on the evening of 2117 attempt made for patient to rescind his decision proved futile. He was instructed to present back to the ED if he changed his mind 2. Diabetes mellitus type 2 on metformin: Did continue in addition to Accu- Cheks before meals and at bedtime with sliding scale coverage 3. Morbid obesity with BMI of 35.4 weight loss recommended 4. Hypertension-blood pressure controlled, home medications continued with dose adjustment as needed 5. Call withdrawal seizures patient was started on Keppra 6. Tobacco dependence counseled on cessation, offered nicotine patch for tobacco cravings 7. DVT prophylaxis SC Lovenox Discharge Diet: No Restrictions Home Medications: Medications to take at Discharge Metformin HCl [Glucophage] 500 mg PO DAILY 04/23/16 Amlodipine [Norvasc] 5 mg PO DAILY 12/31/16 Primary Care Physician: Edison Shannon MD [Primary Care Provider] - Disposition: Against Medical Advice Meaningful Use Info Meaningful Use Diagnoses (Choose all that apply): None applicable Code Visit Inpatient E&M: 42215 Disch Hosp
== END 2017-04-21 18:05 | disposition left against medical advice (07) | DRG 433 ==
LOC: ED 14:37 → MS2 15:30 → ICU 04-20 12:39 → MS2 04-20 13:01
PROVIDERS: Internal Medicine Critical Care Medicine; Admitting Provider Internal Medicine; Emergency Provider Emergency Medicine; Family Provider Family Medicine; PCP Family Medicine; Visit Provider Internal Medicine
DX: F10.231 Alcohol dependence with withdrawal delirium (principal); G31.2 Degeneration of nervous system due to alcohol; E44.0 Moderate protein-calorie malnutrition; R56.9 Unspecified convulsions; E66.01 Morbid (severe) obesity due to excess calories; Y90.8 Blood alcohol level of 240 mg/100 ml or more; T51.0X1A Toxic effect of ethanol, accidental (unintentional), initial encounter; E11.9 Type 2 diabetes mellitus without complications; I10 Essential (primary) hypertension; Z87.442 Personal history of urinary calculi; F17.200 Nicotine dependence, unspecified, uncomplicated; F31.9 Bipolar disorder, unspecified; Z59.0 Homelessness; Z79.84 Long term (current) use of oral hypoglycemic drugs; Z79.899 Other long term (current) drug therapy; Z68.35 Body mass index [BMI] 35.0-35.9, adult
CPT/HCPCS: 71045; 80048; 80053; 80307; 80320; 81001; 82962; 83735; 85025; 87086; 87641; 96372; 97802; 99284; 99285; 99406; A4216; G0480; J3486; J3490

== ENCOUNTER 2017-08-09 19:29 | Observation (INO) | payer SELFPAY ==
[2017-08-09 19:30] VITALS: BP 133/79; PULSE 82; RESP 28; TEMP 36.9; O2SAT 97; BMI 31.7
--- NOTE | 2017-08-09 19:43 | EKG12_ITS ---
Test Reason : CP Blood Pressure : / mmHG Vent. Rate : 078 BPM Atrial Rate : 078 BPM P-R Int : 194 ms QRS Dur : 102 ms QT Int : 368 ms P-R-T Axes : 054 048 055 degrees QTc Int : 419 ms Normal sinus rhythm Normal ECG Confirmed by ROBERT RUDD MD ([id number]), food editor YAZMIN COREY ([id number]) on 08/11/2017 9:01:41 AM Referred By: TREY Confirmed By:ROBERT RUDD MD
--- NOTE | 2017-08-09 19:46 | ED.VISSUMM ---
- ER Visit Summary Date of Service: 08/09/17 Chief Complaint: Chest burning yesterday chest heaviness today both with activity History of Present Illness: The patient is a 52 M who states he had chest burning yesterday after doing yard work with radiation to the right upper extremity associated with nausea, dyspnea and diaphoresis. Pain lasted for 30-60 minutes. Today while at work he developed midsternal heaviness with radiation to the right arm with dyspnea, nausea and diaphoresis. He is still markedly diaphoretic. He reports improvement with nitroglycerin administered by paramedics. There is a strong family history of coronary disease at early age. He has history of type 2 diabetes, hypertension and is a smoker one pack per day. He states 510 years ago he was smoking 2 packs per day. He also gets symptoms of claudication. He denies fever, chills night sweats. Denies any ocular, visual or auditory symptoms. He denies any abdominal pain or back pain. He denies any urologic symptoms. He denies any neurologic symptoms. Physical Examination: Blood pressure slightly elevated 133/79. He is diaphoretic. HEENT exam is unremarkable. Heart is regular without murmur, gallop or rub. S1 and S2 are normal. Lungs are clear to auscultation with good movement of air bilaterally. Abdomen is soft nontender with normal bowel sounds. There is no palpable pulsatile mass or abdominal bruit. He does have distal palpable pulses. Neuro exam is nonfocal. Test Results: EKG obtained in the ER reveals a sinus rhythm with left axis and no acute ischemic changes. Portable chest x-ray reveals no acute findings. CBC, BMP and troponin unremarkable. Emergency Department Course and Treatment: IV was established. Aspirin and nitroglycerin were ordered. Patient was informed he will need admission to the hospital. Treatment Plan: Case was discussed with Dr. Mckeon. He requested patient made n.p.o. after midnight with plan of cardiac cath in the morning. He was informed that his chest pain was alleviated with nitro given in the emergency department. He agrees with aspirin, and 1 mg/kg of Lovenox subcu. He also requested 180 mg of Brilinta and 25 mg Lopressor. Disposition: Admit PCU Impression: 1. Exertional angina 2. History of type 2 diabetes 3. History of hypertension 4. History of tobacco use This note was generated with [employer] software. It may contain incorrect words, spelling, and punctuation that were not noted in review of the chart prior to signing ED Disposition - Plan for ED Patient: Disposition: Acute Care Hospital [facility] Chief Complaint: Chest Pain
--- NOTE | 2017-08-09 19:50 | RAD_ITS ---
STUDY: X-RAY CHEST REASON FOR EXAM: Male, 52 years old. Chest pain. TECHNIQUE: Single AP portable view of the chest. COMPARISON: 04/21/2017. FINDINGS: The lungs are clear and expanded. There is no demonstrated pleural abnormality. Normal size heart. Normal mediastinum and bridget. Normal visualized pulmonary arteries. Normal visualized aortic arch and descending thoracic aorta. Normal visualized thoracic spine. Normal visualized ribs, clavicles, and shoulders. There is no demonstrated abnormality of the visualized soft tissue structures of the upper abdomen. RAD/Chest 1 View (Portable) IMPRESSION: Normal x-ray examination of the chest. Electronically Signed: Colby Kelly MD at 20:05 EDT , Service support ,
--- NOTE | 2017-08-09 19:50 | ED.DCSUM_ITS ---
- ER Visit Summary Date of Service: 08/09/17 Chief Complaint: Chest burning yesterday chest heaviness today both with activity History of Present Illness: The patient is a 52 M who states he had chest burning yesterday after doing yard work with radiation to the right upper extremity associated with nausea, dyspnea and diaphoresis. Pain lasted for 30- 60 minutes. Today while at work he developed midsternal heaviness with radiation to the right arm with dyspnea, nausea and diaphoresis. He is still markedly diaphoretic. He reports improvement with nitroglycerin administered by paramedics. There is a strong family history of coronary disease at early age. He has history of type 2 diabetes, hypertension and is a smoker one pack per day. He states 510 years ago he was smoking 2 packs per day. He also gets symptoms of claudication. He denies fever, chills night sweats. Denies any ocular, visual or auditory symptoms. He denies any abdominal pain or back pain. He denies any urologic symptoms. He denies any neurologic symptoms. Physical Examination: Blood pressure slightly elevated 133/79. He is diaphoretic. HEENT exam is unremarkable. Heart is regular without murmur, gallop or rub. S1 and S2 are normal. Lungs are clear to auscultation with good movement of air bilaterally. Abdomen is soft nontender with normal bowel sounds. There is no palpable pulsatile mass or abdominal bruit. He does have distal palpable pulses. Neuro exam is nonfocal. Test Results: EKG obtained in the ER reveals a sinus rhythm with left axis and no acute ischemic changes. Portable chest x-ray reveals no acute findings. CBC , BMP and troponin unremarkable. Emergency Department Course and Treatment: IV was established. Aspirin and nitroglycerin were ordered. Patient was informed he will need admission to the hospital. Treatment Plan: Case was discussed with Dr. Mckeon. He requested patient made n.p.o. after midnight with plan of cardiac cath in the morning. He was informed that his chest pain was alleviated with nitro given in the emergency department. He agrees with aspirin, and 1 mg/kg of Lovenox subcu. He also requested 180 mg of Brilinta and 25 mg Lopressor. Disposition: Admit PCU Impression: 1. Exertional angina 2. History of type 2 diabetes 3. History of hypertension 4. History of tobacco use This note was generated with [employer] software. It may contain incorrect words, spelling, and punctuation that were not noted in review of the chart prior to signing ED Disposition - Plan for ED Patient: Disposition: Acute Care Hospital [facility] Chief Complaint: Chest Pain
[2017-08-09 19:58] VITALS: BP 133/79; PULSE 73
[2017-08-09 19:59] VITALS: O2SAT 93
[2017-08-09 20:03] VITALS: BP 125/86; PULSE 78; PULSE 79; RESP 18; O2SAT 92
[2017-08-09 20:06] LABS: Absolute Lymphocyte Count 1.98 X10^3/ul (0.83-4.51); Absolute Neutrophil Count 4.6 X10^3/uL (2.0-7.7); Basophil# 0.04 X10^3/uL; Basophil% 0.6 % (0-1); Eosinophil# 0.17 X10^3/uL; Eosinophils% 2.3 % (0-5); Hematocrit 41.8 % (40-54); Hemoglobin 14.6 g/dl (13.0-16.5); Lymphocyte # 1.98 X10^3/ul (4.0); Lymphocyte % 27.2 % (19-41); Mean Corp Hgb Conc 34.9 g/gl (32-36); Mean Corpuscular Volume 88.7 fL (80-94); Mean Platelet Vol. 9.3 fl (6.2-12.0); Monocyte# 0.45 X10^3/uL; Monocyte% 6.2 % (0-10); Neutrophil # 4.63 X10^3/uL (2.7-7.7); Neutrophil % 63.7 % (47-70); POSITIVE COUNT NO; POSITIVE DIFFERENTIAL NO; POSITIVE MORPHOLOGY NO; Platelet Count 213 K/mm3 (150-450); RBC Distribution Width CV 13.7 % (11.6-14.6); RBC Distribution Width SD 44.6 fl (35.1-43.9); Red Blood Count 4.71 M/mm3 (4.6-6.2); White Blood Count 7.3 K/mm3 (4.4-11.0)
[2017-08-09 20:24] LABS: Anion Gap 7 (5-15); BUN 12 mg/dL (7-18); BUN/Creat Ratio 12.4 RATIO (10-20); Calcium,Total 9.1 mg/dL (8.5-10.1); Chloride 108 mmol/L (98-107); Creatinine, Serum 0.97 mg/dL (0.70-1.30); EST Glomerular Filtration Rate 87 mL/min (>60); Est Glom Filt Rate - Afr Amer 105 mL/min (>60); Glucose 81 mg/dL (74-106); Sodium Level 138 mmol/L (136-145)
--- NOTE | 2017-08-09 20:57 | HP.PCM_ITS ---
Problem List (1) Atypical chest pain Status: Acute (2) Alcohol withdrawal Status: Acute Qualifiers: Complication of substance-induced condition: with delirium Qualified Code(s ): F10.231 - Alcohol dependence with withdrawal delirium (3) Alcohol withdrawal delirium, acute, hyperactive Status: Chronic (4) DM type 2 (diabetes mellitus, type 2) Status: Chronic Qualifiers: Diabetes mellitus terminal worker insulin use: without prison use Diabetes mellitus complication status: without complication Qualified Code(s): E11.9 - Type 2 diabetes mellitus without complications (5) Bipolar 1 disorder Status: Chronic (6) History of kidney stones Status: Chronic (7) Continuous chronic alcoholism Status: Chronic Comment: up to 1 gallon vodka daily (8) Tobacco use Status: Chronic (9) Psychiatric pseudoseizure Status: Chronic (10) Delirium tremens Status: Chronic (11) Homelessness Status: Chronic (12) Benign essential hypertension Status: Chronic History of Present Illness Date of Admission: 08/09/17 Chief Complaint: Chest pain for last 2 days The patient is a 52 year old M with multiple comorbidities including history of chronic alcohol use and dependence with last admission in April 2017 for alcohol withdrawal in ICU came to ER with chest pain for last 2 days. Patient said he had chest heaviness at midsternal with radiation to right upper extremity while doing yard work associated with nausea, shortness of breath and diaphoresis. Today, he started having midsternal chest heaviness with radiation to right arm with similar symptoms as of yesterday while he was exerting; working at [employer]. Chest heaviness relieved with the nitroglycerin given by paramedics. Patient has strong family history of SC/coronary artery disease with father having SC at the age of 48. Patient also has chronic risk factors including diabetes mellitus type 2, hypertension, chronic smoker. SANDRINE score 2. EMS EKG shows normal sinus rhythm at 78 bpm and similarly in ER normal sinus rhythm at 78 bpm with no significant ST-T changes positive of ischemia. No prior change with previous EKG of August 02, 2016 Chest x-ray reported as normal. Past Medical History Past Medical History (Chronic Problems): Chronic Problems Alcohol withdrawal delirium, acute, hyperactive (Chronic) DM type 2 (diabetes mellitus, type 2) (Chronic) Bipolar 1 disorder (Chronic) History of kidney stones (Chronic) Continuous chronic alcoholism (Chronic) up to 1 gallon vodka daily Tobacco use (Chronic) Psychiatric pseudoseizure (Chronic) Delirium tremens (Chronic) Homelessness (Chronic) Benign essential hypertension (Chronic) Allergies amoxicillin [Amoxicillin] Allergy (Verified 04/18/17 00:07) Anaphylaxis Penicillins Allergy (Verified 04/18/17 00:07) Anaphylaxis Home Medications: Ambulatory Orders Medication Instructions Recorded NK [NK] 08/09/17 Surgical History: no surgical history Smoking Status: Current every day smoker - 1 pack per day. Started at the age of 14 smoked 2 packs per day for more than 20 years. - *Family History Maternal History Items: No pertinent history Paternal History Items: No pertinent history Sibling History Items: No pertinent history Review of Systems Constitutional: Denies: Chills, Fever, Weight Change HEENT: Denies: Head Aches, Sinus Congestion, Sinus Drainage Cardiovascular: Reports: Chest Pain, Claudication, Chest Pressure. Denies: Palpitations Respiratory: Reports: Shortness of Breath. Denies: Cough, Shortness of breath at rest, Sputum production Gastrointestinal: Denies: Abdominal Pain, Vomiting Genitourinary: Denies: Dysuria Musculoskeletal: Denies: Joint Pain, Joint Tenderness Skin: Denies: Rash, Wounds Neurological: Denies: Numbness, Tingling, Focal weakness Psychiatric: Denies: Anxiety, Depression, Homicidal Ideations, Suicidal Ideations Hematologic/ Lymphatic: Denies: Easy Bruising, Easy Bleeding VTE Information - Inpt Only VTE Present on Admission: No VTE Mechan Device Prophylaxis: SCD's VTE Pharm Prophylaxis ordered?: Yes Patient Problems: Active and Suspected Problems Atypical chest pain (Acute) - Physical Exam General: Alert, Oriented x3, Cooperative HEENT: Atraumatic, PERRLA, EOMI, Normocephalic Neck: Supple, No JVD, Negative Carotid Bruits Lungs: Clear to auscultation, Normal air movement, No rhonchi, No wheeze, No rales Cardiovascular: Regular rate, Regular Rhythm, Normal S1, Normal S2, No murmurs Abdomen: Bowel Sounds Present, Soft, Non Tender, Non-Distended Extremities: No edema, Capillary Refill Less than 3 Seconds Skin: No rashes, No breakdown Musculoskeletal: No Tenderness to Palpation of Joints or Extremities Neurological: Cranial nerves II-XII grossly intact Psych/Mental Status: Normal Affect, Appropriate Vital Signs Temp Pulse Resp BP Pulse Ox 98.4 F 79 18 125/86 H 92 08/09/17 19:30 08/09/17 20:03 08/09/17 20:03 08/09/17 20:03 08/09/17 20:03 Oxygen Delivery Method Room Air Weight: 215 lb Body Mass Index (BMI) 31.7 Finger Stick Blood Glucose 98 Laboratory Tests Past 24 Hrs 08/09/17 08/09/17 19:30 19:30 WBC 7.3 RBC 4.71 Hgb 14.6 Hct 41.8 MCV 88.7 MCH 31.0 MCHC 34.9 RDW 13.7 RDW Differential 44.6 H Plt Count 213 MPV 9.3 Immature Gran % (Auto) 0.000 Neut % (Auto) 63.7 Lymph % (Auto) 27.2 [place] % (Auto) 6.2 Eos % (Auto) 2.3 Baso % (Auto) 0.6 Absolute Neuts (auto) 4.6 Absolute Lymphs (auto) 1.98 Total Counted Not Reportable Sodium 138 Potassium 4.0 Chloride 108 H Carbon Dioxide 23.0 Anion Gap 7 BUN 12 Creatinine 0.97 Estim Creat Clear Calc 90.10 Est GFR (MDRD) Af Amer 105 Est GFR (MDRD) Non-Af 87 BUN/Creatinine Ratio 12.4 Glucose 81 Calcium 9.1 Troponin I < 0.015 Assessment/Plan All Active Problems Alcohol withdrawal (Acute) Atypical chest pain (Acute) The patient is a 52 year old M with multiple comorbidities including history of chronic alcohol use and dependence with last admission in April 2017 for alcohol withdrawal in ICU came to ER with chest pain for last 2 days. Patient said he had chest heaviness at midsternal with radiation to right upper extremity while doing yard work associated with nausea, shortness of breath and diaphoresis. Today, he started having midsternal chest heaviness with radiation to right arm with similar symptoms as of yesterday while he was exerting; working at [employer]. Chest heaviness relieved with the nitroglycerin given by paramedics. Patient has strong family history of SC/coronary artery disease with father having SC at the age of 48. Patient also has chronic risk factors including diabetes mellitus type 2, hypertension, chronic smoker. SANDRINE score 2. EMS EKG shows normal sinus rhythm at 78 bpm and similarly in ER normal sinus rhythm at 78 bpm with no significant ST-T changes positive of ischemia. No prior change with previous EKG of August 02, 2016 Chest x-ray reported as normal. Patient has chronic history of claudication of right leg and palpated in vision for a few years on walking 2-3 blocks which gets relieved at rest 1. Atypical chest pain concerning for exertional angina/unstable angina: Patient is being admitted in PCU. On ACS protocol with serial cardiac enzymes, cardiac monitoring, aspirin, nitroglycerin sublingual as needed, statin and metoprolol. If serial troponin enzymes are negative, will schedule for treadmill nuclear stress test. Patient never had a stress test, cardiac cath or echo. 2 diabetes mellitus type 2., Accu-Chek before meals and at bedtime and cover with NovoLog sliding scale. A1c tomorrow a.m. patient is status metformin at home not listed 3. Hypertension, chronic alcohol use with history of admission for alcohol withdrawal, chronic smoker: Home medication reconciliation done. DVT prophylaxis: On heparin 5000 subcutaneous twice daily and bilateral SCDs. This note was generated with [employer] dictation software. Every effort was made to ensure accuracy, however computerized software build engineer mistakes may persist. Code Visit OBSV E&M: 28671 Initial observation care L3
[2017-08-09] MEDS: TICAGRELOR 90 MG TABLET 180 MG PO (21:09)
[2017-08-09] MEDS: Enoxaparin 100 MG/ML Syringe SC (21:09)
[2017-08-09] MEDS: Metoprolol Tartrate 25 MG Tablet PO (21:09)
[2017-08-09 21:14] VITALS: BP 127/84; PULSE 64; RESP 17; O2SAT 99
[2017-08-09] MEDS: LORazepam 1 MG Tablet PO (21:45)
[2017-08-09 22:00] VITALS: PULSE 69
--- NOTE | 2017-08-09 22:20 | EKG12_ITS ---
Test Reason : ADMT Blood Pressure : / mmHG Vent. Rate : 061 BPM Atrial Rate : 061 BPM P-R Int : 222 ms QRS Dur : 106 ms QT Int : 406 ms P-R-T Axes : 059 037 047 degrees QTc Int : 408 ms Sinus rhythm with 1st degree A-V block Otherwise normal ECG When compared with ECG of 02-AUG-2016 17:25, IA interval has increased Confirmed by TOBIN MAKI, ROBERT ([id number]), production editor YAZMIN COREY ([id number]) on 08/11/2017 9:50:47 AM Referred By: ELVIA Confirmed By:ROBERT RUDD MD
[2017-08-09 23:32] VITALS: BMI 31.7; BMI 32.0
[2017-08-09] MEDS: Atorvastatin Calcium 40 MG Tablet PO (23:57)
[2017-08-10] VITALS (17 sets, daily range): BP systolic 122–149; BP diastolic 73–105; PULSE 54–69; RESP 16; TEMP 36.7–37; O2SAT 95–98
[2017-08-10] MEDS: clonazePAM 0.5 MG Tablet PO (01:02)
[2017-08-10 04:52] LABS: Bacteria 0 SEEN /hpf (None Seen); Mucous, Urine 0 SEEN /hpf (<or=2+); Squamous Epithelial Cells - UA 0 SEEN /hpf (0-5); White Blood Cells 0 SEEN /hpf (0-5)
[2017-08-10 05:08] LABS: Color, Urine Yellow (Yellow); Glucose, Dipstick NEGATIVE (Normal); Ketone-Dipstick Negative (Negative); Leukocyte Esterase-Dipstick Negative /ul (Negative); Nitrite-Dipstick Negative (Negative); Occult Blood-Urine 25 /ul (Negative); Protein-Dipstick Negative (Negative); Specific Gravity, Urine 1.015 (1.002-1.030); Urine Bilirubin Dipstick Negative (Negative); Urine Clarity Clear (Clear); Urine Urobilinogen Normal (Normal)
[2017-08-10 05:10] LABS: Amorphous Sediment 1+; Red Blood Cells-Urine 0-5 SEEN /hpf (0-5)
[2017-08-10 05:14] LABS: Absolute Lymphocyte Count 2.19 X10^3/ul (0.83-4.51); Absolute Neutrophil Count 2.7 X10^3/uL (2.0-7.7); Basophil# 0.03 X10^3/uL; Basophil% 0.5 % (0-1); Eosinophil# 0.16 X10^3/uL; Eosinophils% 2.9 % (0-5); Hematocrit 41.4 % (40-54); Hemoglobin 14.2 g/dl (13.0-16.5); Lymphocyte # 2.19 X10^3/ul (4.0); Lymphocyte % 39.5 % (19-41); Mean Corp Hgb Conc 34.3 g/gl (32-36); Mean Corpuscular Hgb 30.6 pg (27.0-32.0); Mean Corpuscular Volume 89.2 fL (80-94); Mean Platelet Vol. 9.3 fl (6.2-12.0); Monocyte# 0.46 X10^3/uL; Monocyte% 8.3 % (0-10); Neutrophil # 2.69 X10^3/uL (2.7-7.7); Neutrophil % 48.6 % (47-70); Platelet Count 200 K/mm3 (150-450); RBC Distribution Width CV 13.9 % (11.6-14.6); RBC Distribution Width SD 44.7 fl (35.1-43.9); Red Blood Count 4.64 M/mm3 (4.6-6.2); White Blood Count 5.5 K/mm3 (4.4-11.0)
[2017-08-10 05:17] LABS: POSITIVE COUNT NO; POSITIVE DIFFERENTIAL NO; POSITIVE MORPHOLOGY NO
[2017-08-10 05:18] LABS: Prothrombin Time (Protime)PT. 13.6 SECONDS (11.7-14.9)
[2017-08-10 05:19] LABS: Partial Thromboplast Time 34.6 Seconds (24.1-36.2)
[2017-08-10 05:51] LABS: Anion Gap 8 (5-15); BUN 11 mg/dL (7-18); BUN/Creat Ratio 13.8 RATIO (10-20); Calcium,Total 8.4 mg/dL (8.5-10.1); Chloride 110 mmol/L (98-107); Cholesterol 164 mg/dL (200); EST Glomerular Filtration Rate 109 mL/min (>60); Est Glom Filt Rate - Afr Amer 132 mL/min (>60); Estimated Creatinine Clearance 109.24 ml/min; Glucose 92 mg/dL (74-106); High Density Lipoprotein 32 mg/dL; Potassium 3.9 mmol/L (3.5-5.1); Sodium Level 141 mmol/L (136-145); Thyroid Stim Hormone (TSH) 2.28 uIU/mL (0.358-3.74); Triglycerides 198 mg/dL; Very Low Density Lipoprotein 40 mg/dL (5-40)
--- NOTE | 2017-08-10 06:31 | ECHOD_ITS ---
Reason For Study: CAD/ASHD Procedure This was a 2D Doppler, Color Flow transthoracic echocardiogram. The exam was of fair technical quality due to body habitus. The study was technically difficult. Exam performed portable in patient room. Left Ventricle Normal LV size. Left ventricular systolic function is normal. The estimated ejection fraction is 60 %. Diastolic function: considered indeterminate. No regional wall motion abnormalities noted. Right Ventricle Normal RV size. Normal systolic function. Atria Normal left atrium. Normal right atrium. No doppler evidence for ASD. Mitral Valve There is no mitral annular calcification. Normal mitral valve. Trivial mitral valve insufficiency. Tricuspid Valve Normal tricuspid valve. Trivial tricuspid valve insufficiency. Unable to estimate RV systolic pressure/pulmonary artery pressure due to technically difficult study. Aortic Valve The aortic valve is not well visualized. Pulmonic Valve The pulmonic valve is not well visualized. Great Vessels Normal sized aortic root. Pericardium/Pleural No pericardial effusion. MMode/2D Measurements & Calculations LVIDd: 4.7 cm IVSd: 1.0 cm Ao root diam: 3.8 cm LVIDs: 3.7 cm LVPWd: 1.1 cm RVDd: 4.0 cm FS: 22.0 % LAV(MOD-bp): 44.3 ml LVAd ap4: 37.2 cm2 SV(MOD-sp4): 62.1 ml LAV(MOD-bp) Indexed: 20.8 ml/m2 EDV(MOD-sp4): 122.8 ml LAV(MOD-sp2): 48.3 ml EDV(sp4-el): 127.7 ml LAV(MOD-sp4): 37.9 ml LVAs ap4: 24.1 cm2 ESV(MOD-sp4): 60.7 ml ESV(sp4-el): 59.4 ml EF(MOD-sp4): 50.6 % EF(sp4-el): 53.5 % SV(sp4-el): 68.3 ml LA A4 area: 15.2 cm2 RA A4 area: 15.4 cm2 Time Measurements MV dec time: 0.21 sec Doppler Measurements & Calculations MV E max abilio: 104.9 cm/sec Lat Peak E' Abilio: 14.4 cm/sec Med Peak E' Abilio: 9.1 cm/sec MV A max abilio: 84.2 cm/sec E/E' lat: 7.3 E/E' med: 11.5 MV E/A: 1.2 MV V2 max: 128.1 cm/sec MV P1/2t max abilio: 129.6 cm/sec Ao V2 max: 107.9 cm/sec MV max P.6 mmHg MV P1/2t: 57.0 msec Ao max P.7 mmHg MV V2 mean: 52.1 cm/sec MV dec slope: 666.4 cm/sec2 Ao V2 mean: 65.3 cm/sec MV mean P.4 mmHg MVA(P1/2t): 3.9 cm2 Ao mean P.0 mmHg MV V2 VTI: 36.5 cm Ao V2 VTI: 20.6 cm LV V1 max: 87.9 cm/sec PA V2 max: 72.5 cm/sec LV V1 max P.1 mmHg LV V1 mean P.5 mmHg LV V1 mean: 55.6 cm/sec LV V1 VTI: 17.0 cm Interpretation Summary The study was technically difficult. Left ventricular systolic function is normal. The estimated ejection fraction is 60 %. Trivial mitral valve insufficiency. Trivial tricuspid valve insufficiency. Unable to estimate RV systolic pressure/pulmonary artery pressure due to technically difficult study. Diastolic function: considered indeterminate. Ordering Physician: Nadia Fair Referring Physician: James Shannon Performed By: Leighton Flores RCS
[2017-08-10] MEDS: Aspirin E.C. 81 MG Tablet PO (06:49)
[2017-08-10] MEDS: Metoprolol Tartrate 25 MG Tablet PO (06:50)
[2017-08-10 07:01] LABS: Bedside Glucose 106 mg/dL (70-110)
[2017-08-10 07:12] LABS: Magnesium 2.1 mg/dL (1.6-2.6)
--- NOTE | 2017-08-10 07:41 | PCM.CONS.C ---
Problem List (1) Unstable angina Status: Acute (2) Benign essential hypertension Status: Chronic (3) DM type 2 (diabetes mellitus, type 2) Status: Chronic Qualifiers: Diabetes mellitus fpc insulin use: without fpc use Diabetes mellitus complication status: without complication Qualified Code(s): E11.9 - Type 2 diabetes mellitus without complications (4) Tobacco use Status: Chronic Reason for Consult Date of Consultation: 08/10/17 History of Present Illness: The patient is a 52 year old white male with past medical history of hypertension, diabetes mellitus, superimposed upon tobacco use, remote alcoholism, and a remote fall with blunt head trauma with traumatic brain injury/bleed leading to hospitalization and extended care facility type care, who now presents with symptoms concerning for accelerating/unstable angina pectoris. He notes for the last 2 months he has been having symptoms, which have accelerated over the last 2 weeks, of exertional related chest burning sensation. He can stop and rest and his symptoms are alleviated. He notes that when he has the symptoms he has also been having right upper extremity paresthesias. However when he stops and rests the right upper extremity symptoms prolonged for a longer period of time. He has denied associated nausea, emesis, and diaphoresis. There has been no obvious associated shortness of breath. He has no history of orthopnea, PND, or peripheral pitting edema. There has been no near syncope or syncope. He does have a history of hypertension and diabetes mellitus. He has been without medical therapy for some time. He states he has a positive family history of premature CAD. He notes that his father underwent evaluation care with PTCA in his early 40s and subsequent CABG in his late 40s. He is a positive tobacco user and continues to smoke. He states he has remote alcohol history. [] Past Medical History Allergies/Adverse Reactions: Allergies amoxicillin [Amoxicillin] Allergy (Verified 04/18/17 00:07) Anaphylaxis Penicillins Allergy (Verified 04/18/17 00:07) Anaphylaxis Home Medications: Ambulatory Orders Medication Instructions Recorded Aspirin [Aspirin, Baby] 81 mg PO DAILY@0800 08/09/17 Clonazepam [Klonopin] 0.5 mg PO Q6H PRN 08/09/17 Ibuprofen 400 mg PO Q6H PRN 08/09/17 Past Medical History (Chronic Problems): Chronic Problems Alcohol withdrawal delirium, acute, hyperactive (Chronic) DM type 2 (diabetes mellitus, type 2) (Chronic) Bipolar 1 disorder (Chronic) History of kidney stones (Chronic) Continuous chronic alcoholism (Chronic) up to 1 gallon vodka daily Tobacco use (Chronic) Psychiatric pseudoseizure (Chronic) Delirium tremens (Chronic) Homelessness (Chronic) Benign essential hypertension (Chronic) Surgical History: no surgical history - *Family History Maternal History Items: No pertinent history Paternal History Items: No pertinent history Sibling History Items: No pertinent history Smoking Status: Current every day smoker Tobacco Use: Cigarettes Review of Systems - Review of Systems General: Denies: Fever, Night Sweats, Fatigue Cardiovascular: Reports: Chest Discomfort, Chest Discomfort with Exertion. Denies: Shortness of Breath, Orthopnea, PND, Peripheral Edema, Palpitations, Lightheadedness, Dizziness, Near Syncope, Syncope Respiratory: Denies: Cough, Sputum Production, Hemoptysis Gastrointestinal: Denies: Hematemesis, Hematochezia, Melena Genitourinary: Denies: Dysuria, Hematuria Skin: Denies: Rash Subjectve: Is a 52-year-old white male who appears to be resting comfortably at the moment in no acute distress. Objective: Vital Signs Temp Pulse Resp BP Pulse Ox 98.3 F 54 L 16 149/95 H 96 08/10/17 04:00 08/10/17 06:56 08/10/17 04:00 08/10/17 06:50 08/10/17 04:00 Oxygen Delivery Method Room Air Weight: 216 lb 11.43 oz Body Mass Index (BMI) 32.0 Intake and Output for Last 24 Hours 08/08/17 08/09/17 08/10/17 23:59 23:59 23:59 Intake Total 200 / 200 Balance 200 / 200 General: Awake, Alert, Oriented x 3, Cooperative, No Acute Distress HEENT: Atraumatic, Normocephalic, PERRL, EOMI Oral: Moist Mucosa Neck: Supple Lungs: Clear to auscultation Cardiovascular: Regular Rhythm, Normal S1, Normal S2, Positive S4 Vascular: No Carotid Bruits Abdomen: Bowel Sounds Present, Soft, Non Tender Extremities: No Cyanosis, No Clubbing, No edema Psych/Mental Status: Appropriate, Normal Affect 08/09/17 22:46: Troponin I < 0.015 08/10/17 02:07: Troponin I < 0.015 08/10/17 04:40: Urine Color Yellow, Urine Clarity Clear, Urine pH 7.0, Ur Specific [place] 1.015, Urine Protein Negative, Urine Glucose (UA) NEGATIVE, Urine Ketones Negative, Urine Occult Blood 25 H, Urine Nitrite Negative, Urine Bilirubin Negative, Urine Urobilinogen Normal, Ur Leukocyte Esterase Negative, Urine RBC 0-5 SEEN, Urine WBC 0 SEEN 08/10/17 04:52: Sodium 141, Potassium 3.9, Chloride 110 H, Carbon Dioxide 23.0, Anion Gap 8, BUN 11, Creatinine 0.80, Est GFR (MDRD) Af Amer 132, Est GFR (MDRD) Non-Af 109, BUN/Creatinine Ratio 13.8, Glucose 92, Calcium 8.4 L, Triglycerides 198, Cholesterol 164, LDL Cholesterol 92, VLDL Cholesterol 40, HDL Cholesterol 32 L 08/10/17 04:52: WBC 5.5, RBC 4.64, Hgb 14.2, Hct 41.4, MCV 89.2, MCH 30.6, MCHC 34.3, RDW 13.9, RDW Differential 44.7 H, Plt Count 200, MPV 9.3, Immature Gran % (Auto) 0.200, Neut % (Auto) 48.6, Lymph % (Auto) 39.5, [place] % (Auto) 8.3, Eos % (Auto) 2.9, Baso % (Auto) 0.5, Absolute Neuts (auto) 2.7, Total Counted Not Reportable 08/10/17 04:52: PT 13.6, INR 1.0, APTT 34.6 08/10/17 04:52: Magnesium 2.1 Rhythm: Sinus rhythm EKG: Sinus rhythm CXR: Preliminary evaluation: No acute cardiopulmonary disease appreciated: Please see official report Assessment/Plan 1. Accelerating/unstable angina pectoris The patient presents with cardiovascular risk factors which have included hypertension, diabetes mellitus, positive tobacco history, and a positive history of premature atherosclerotic coronary artery disease in his father with symptoms concerning for angina pectoris which appears to be accelerating/unstable. He is undergone the rule out DE protocol which is been negative by cardiac enzymes and ECGs. He has been treated medically. At the present time he is been referred for evaluation for diagnostic cardiac catheterization based upon his history, etc. The procedure with respect to risks and benefits were discussed with the patient. He was agreeable to this approach. 2. Hypertension The patient does have a history of hypertension. His blood pressures will need to be followed. His medications can be adjusted as needed. 3. Diabetes mellitus He will continue evaluation care per internal medicine. 4. Tobacco abuse The patient has been counseled on the need to discontinue his tobacco use. Comment: The above was discussed and reviewed with the patient and previously with Dr. Alcazar of the [facility] emergency department staff. This note was generated with [employer] dictation software. It may contain incorrect words, spelling, and punctuation that were not noted in checking the note before signing.
--- NOTE | 2017-08-10 07:48 | CON.PCM_ITS ---
Problem List (1) Unstable angina Status: Acute (2) Benign essential hypertension Status: Chronic (3) DM type 2 (diabetes mellitus, type 2) Status: Chronic Qualifiers: Diabetes mellitus mcfp insulin use: without mcfp use Diabetes mellitus complication status: without complication Qualified Code(s): E11.9 - Type 2 diabetes mellitus without complications (4) Tobacco use Status: Chronic Reason for Consult Date of Consultation: 08/10/17 History of Present Illness: The patient is a 52 year old white male with past medical history of hypertension, diabetes mellitus, superimposed upon tobacco use, remote alcoholism, and a remote fall with blunt head trauma with traumatic brain injury /bleed leading to hospitalization and extended care facility type care, who now presents with symptoms concerning for accelerating/unstable angina pectoris. He notes for the last 2 months he has been having symptoms, which have accelerated over the last 2 weeks, of exertional related chest burning sensation. He can stop and rest and his symptoms are alleviated. He notes that when he has the symptoms he has also been having right upper extremity paresthesias. However when he stops and rests the right upper extremity symptoms prolonged for a longer period of time. He has denied associated nausea , emesis, and diaphoresis. There has been no obvious associated shortness of breath. He has no history of orthopnea, PND, or peripheral pitting edema. There has been no near syncope or syncope. He does have a history of hypertension and diabetes mellitus. He has been without medical therapy for some time. He states he has a positive family history of premature CAD. He notes that his father underwent evaluation care with PTCA in his early 40s and subsequent CABG in his late 40s. He is a positive tobacco user and continues to smoke. He states he has remote alcohol history. [] Past Medical History Allergies/Adverse Reactions: Allergies amoxicillin [Amoxicillin] Allergy (Verified 04/18/17 00:07) Anaphylaxis Penicillins Allergy (Verified 04/18/17 00:07) Anaphylaxis Home Medications: Ambulatory Orders Medication Instructions Recorded Aspirin [Aspirin, Baby] 81 mg PO DAILY@0800 08/09/17 Clonazepam [Klonopin] 0.5 mg PO Q6H PRN 08/09/17 Ibuprofen 400 mg PO Q6H PRN 08/09/17 Past Medical History (Chronic Problems): Chronic Problems Alcohol withdrawal delirium, acute, hyperactive (Chronic) DM type 2 (diabetes mellitus, type 2) (Chronic) Bipolar 1 disorder (Chronic) History of kidney stones (Chronic) Continuous chronic alcoholism (Chronic) up to 1 gallon vodka daily Tobacco use (Chronic) Psychiatric pseudoseizure (Chronic) Delirium tremens (Chronic) Homelessness (Chronic) Benign essential hypertension (Chronic) Surgical History: no surgical history - *Family History Maternal History Items: No pertinent history Paternal History Items: No pertinent history Sibling History Items: No pertinent history Smoking Status: Current every day smoker Tobacco Use: Cigarettes Review of Systems - Review of Systems General: Denies: Fever, Night Sweats, Fatigue Cardiovascular: Reports: Chest Discomfort, Chest Discomfort with Exertion. Denies: Shortness of Breath, Orthopnea, PND, Peripheral Edema, Palpitations, Lightheadedness, Dizziness, Near Syncope, Syncope Respiratory: Denies: Cough, Sputum Production, Hemoptysis Gastrointestinal: Denies: Hematemesis, Hematochezia, Melena Genitourinary: Denies: Dysuria, Hematuria Skin: Denies: Rash Subjectve: Is a 52-year-old white male who appears to be resting comfortably at the moment in no acute distress. Objective: Vital Signs Temp Pulse Resp BP Pulse Ox 98.3 F 54 L 16 149/95 H 96 08/10/17 04:00 08/10/17 06:56 08/10/17 04:00 08/10/17 06:50 08/10/17 04:00 Oxygen Delivery Method Room Air Weight: 216 lb 11.43 oz Body Mass Index (BMI) 32.0 Intake and Output for Last 24 Hours 08/08/17 08/09/17 08/10/17 23:59 23:59 23:59 Intake Total 200 / 200 Balance 200 / 200 General: Awake, Alert, Oriented x 3, Cooperative, No Acute Distress HEENT: Atraumatic, Normocephalic, PERRL, EOMI Oral: Moist Mucosa Neck: Supple Lungs: Clear to auscultation Cardiovascular: Regular Rhythm, Normal S1, Normal S2, Positive S4 Vascular: No Carotid Bruits Abdomen: Bowel Sounds Present, Soft, Non Tender Extremities: No Cyanosis, No Clubbing, No edema Psych/Mental Status: Appropriate, Normal Affect 08/09/17 22:46: Troponin I < 0.015 08/10/17 02:07: Troponin I < 0.015 08/10/17 04:40: Urine Color Yellow, Urine Clarity Clear, Urine pH 7.0, Ur Specific [place] 1.015, Urine Protein Negative, Urine Glucose (UA) NEGATIVE, Urine Ketones Negative, Urine Occult Blood 25 H, Urine Nitrite Negative, Urine Bilirubin Negative, Urine Urobilinogen Normal, Ur Leukocyte Esterase Negative, Urine RBC 0-5 SEEN, Urine WBC 0 SEEN 08/10/17 04:52: Sodium 141, Potassium 3.9, Chloride 110 H, Carbon Dioxide 23.0, Anion Gap 8, BUN 11, Creatinine 0.80, Est GFR (MDRD) Af Amer 132, Est GFR (MDRD ) Non-Af 109, BUN/Creatinine Ratio 13.8, Glucose 92, Calcium 8.4 L, Triglycerides 198, Cholesterol 164, LDL Cholesterol 92, VLDL Cholesterol 40, HDL Cholesterol 32 L 08/10/17 04:52: WBC 5.5, RBC 4.64, Hgb 14.2, Hct 41.4, MCV 89.2, MCH 30.6, MCHC 34.3, RDW 13.9, RDW Differential 44.7 H, Plt Count 200, MPV 9.3, Immature Gran % (Auto) 0.200, Neut % (Auto) 48.6, Lymph % (Auto) 39.5, [place] % (Auto) 8.3, Eos % (Auto) 2.9, Baso % (Auto) 0.5, Absolute Neuts (auto) 2.7, Total Counted Not Reportable 08/10/17 04:52: PT 13.6, INR 1.0, APTT 34.6 08/10/17 04:52: Magnesium 2.1 Rhythm: Sinus rhythm EKG: Sinus rhythm CXR: Preliminary evaluation: No acute cardiopulmonary disease appreciated: Please see official report Assessment/Plan 1. Accelerating/unstable angina pectoris The patient presents with cardiovascular risk factors which have included hypertension, diabetes mellitus, positive tobacco history, and a positive history of premature atherosclerotic coronary artery disease in his father with symptoms concerning for angina pectoris which appears to be accelerating/ unstable. He is undergone the rule out KS protocol which is been negative by cardiac enzymes and ECGs. He has been treated medically. At the present time he is been referred for evaluation for diagnostic cardiac catheterization based upon his history, etc. The procedure with respect to risks and benefits were discussed with the patient. He was agreeable to this approach. 2. Hypertension The patient does have a history of hypertension. His blood pressures will need to be followed. His medications can be adjusted as needed. 3. Diabetes mellitus He will continue evaluation care per internal medicine. 4. Tobacco abuse The patient has been counseled on the need to discontinue his tobacco use. Comment: The above was discussed and reviewed with the patient and previously with Dr. Alcazar of the [facility] emergency department staff. This note was generated with [employer] dictation software. It may contain incorrect words, spelling, and punctuation that were not noted in checking the note before signing.
[2017-08-10] MEDS: 0.9% Normal Saline 1,000 ML 15 ML IV (08:43)
[2017-08-10] MEDS: TICAGRELOR 90 MG TABLET PO (08:43)
--- NOTE | 2017-08-10 08:54 | NURSING ---
Called report to labor contractor RN
--- NOTE | 2017-08-10 10:03 | CL.D_ITS ---
Patient Name: JACKELINE MERA Study Date: 08/10/2017 Performing: Phil Mckeon MD Ht: 68.89 inches 175 cm : 1965 Wt: 216.05 lbs 98 kg Age: 52 Gender: male BSA: 2.13 PROCEDURE(S) PERFORMED [id number] CLINICAL PROFILE AND INDICATIONS Indications: Worsening Angina, Suspected CAD Heart Failure: None Stress/Imaging Stress/Image Study Performed: No Angina Classification Anginal Classification w/in 2 Weeks: CCS III CAD Presentations: Unstable angina. CONCLUSIONS Elevated Left Ventricular End Diastolic Pressure Normal LV size, wall motion,and systolic function LVEF: by LV gram 55 % [place] Multivessel CAD RECOMMENDATIONS Medical therapy DESCRIPTION OF PROCEDURE The patient arrived to the procedure lab. The risks and benefits of the procedure as well as a full d escription of our services here and current unavailability of surgical backup were fully explained to the patient and/or their significant other prior to the catheterization. The Timeout was completed, verifying the correct patient and procedure. The patient's procedural site was prepped and draped in the usual fashion. Local anesthetic was given subcutaneously to right groin region with Lidocaine 2%. Using a modified Seldinger technique, arterial access was obtained via the right femoral artery, a 5 Fr sheath was inserted. Left Coronary Artery selective angiography was performed in multiple views u sing a 5 Fr. JL 5 catheter. Right Coronary Artery selective angiography was then performed in multipl e views using a 5 Fr. 3DRC (Roland) catheter. Right Coronary Artery selective angiography was then performed in multiple views using a 5 Fr. JR 4 catheter. Left Ventriculography was performed in ORTEZ p rojection using a 5 Fr. Pigtail catheter. LV to AO pullback pressures were then recorded.The arterial sheath was pulled and manual compression applied until hemostasis is achieved. CORONARY ANGIOGRAPHY DOMINANCE: Right Dominant LEFT HEART ASSESSMENT Left Ventricular Ejection Fraction: by LV Gram 55 % Normal LV wall motion Elevated Left Ventricular End Diastolic Pressure LVEDP: 25 mmHg LEFT MAIN: Angiographically normal LEFT ANTERIOR DECENDING ARTERY: PROX LAD: Eccentric: Smooth: 10 % Stenosis MID LAD: Mild luminal irregularities CIRCUMFLEX ARTERY: MID CIRC: small vessel: s/p OM1: 50-75 % Stenosis RIGHT CORONARY ARTERY: PROX RCA: Mild luminal irregularities VALVE FINDINGS: Normal Aortic Valve function Normal Mitral Valve function AORTIC ROOT: Angiographically normal COMPLICATIONS No Complications PROCEDURE MEDICATIONS Versed 1 mg IV Versed 1 mg IV Fentanyl 50 mcg IV Oxygen: 2 L/min via nasal cannula SUMMARY OF HEMODYNAMIC DATA Time AIR REST ECG 09:06:09 AO 106/77 (92) SA 09:28:42 LV 172/5, 26 09:37:40 LV 164/6, 25 09:37:46 LV 159/3, 28 09:38:27 LV 154/6, 27 09:38:33 LVp 138/0, 23 09:38:38 AOp 135/78 (101) 09:38:43 Signed By Phil Mckeon MD On 08/10/2017 10:03:25 Phil Mckeon MD
--- NOTE | 2017-08-10 10:16 | MRI_ITS ---
STUDY: MRI CERVICAL SPINE WITHOUT CONTRAST REASON FOR EXAM: Male, 52 years old. Right arm numbness and neck pain TECHNIQUE: Standardized fat and water weighted pulse sequences were obtained in the sagittal and axial planes. COMPARISON: None FINDINGS: Normal foramen magnum and brainstem-cervical cord junction. Normal craniovertebral junction. Normal anterior atlantoaxial articulation. Normal odontoid process. Decreased cervical lordosis. Normal vertebral bodies and posterior osseous elements. C2-3: Minor endplate spurring.. Normal disc height, signal and tiny central disc protrusion.. Normal central canal and intervertebral neural foramina. C3-4: Normal endplates. Normal disc height, signal and small left paracentral disc protrusion.. Normal central canal and intervertebral neural foramina. C4-5: Endplate spurring.. Normal disc height, signal and mild bulging disc osteophyte complex.. Normal central canal. Moderate right neural foraminal stenosis and severe narrowing on the left secondary to bony hypertrophy C5-6: Minor endplate spurring. Normal disc height, signal and morphology. Normal central canal and intervertebral neural foramina. C6-7: Mild endplate spurring.. Normal disc height, signal and mild bulging disc osteophyte complex. Normal central canal. Mild left neural foraminal encroachment and moderate to severe narrowing on the right secondary to bony hypertrophy. C7-T1: Normal endplates. Normal disc height, signal and morphology. Normal central canal and intervertebral neural foramina. Normal cervical cord. Normal visualized soft tissue structures. MRI/Spine Cervical (Routine) IMPRESSION: No evidence for acute fracture or subluxation Moderate spondylosis and multilevel spinal stenosis secondary to disc disease and bony hypertrophy most severe at C4-5 and C6-7 greater on the right. Electronically Signed: Edison Lei MD at 16:02 EDT , Service support ,
--- NOTE | 2017-08-10 10:16 | MRI_ITS ---
STUDY: MRI THORACIC SPINE WITHOUT CONTRAST REASON FOR EXAM: Male, 52 years old. Radiculopathy. Cord compression. Right arm numbness. TECHNIQUE: Standardized fat and water weighted pulse sequences were obtained in the sagittal and axial planes. COMPARISON: 03/19/2013. FINDINGS: Normal kyphosis of the thoracic spine. There is no substantial scoliosis. T4-T5: Normal T4 inferior endplate. Minimal anterior wedging of the T5 superior endplate may be developmental or from remote injury. Normal disc height and morphology. Normal central canal and bilateral intervertebral neural foramina. T7-T8: Normal T7 inferior endplate. Very slight anterior wedging of T8 superior endplate is unchanged. Normal disc height and morphology. Normal central canal and bilateral intervertebral neural foramina. T1-2, T2-3, T3-4, T5-6, T6-7, T8-9, T9-10, T10-11, T11-12: Normal endplates. Normal disc hydration, heights and morphology of the corresponding intervertebral discs. Normal central canal and intervertebral neural foramina at the corresponding levels. Normal visualized thoracic cord. Normal conus medullaris that terminates at the T12-L1 disc level. The soft tissue structures are unremarkable. MRI/Spine Thoracic (Routine) IMPRESSION: 1. No MRI evidence of thoracic extruded disc fragment, or compressing lesions or intrinsic signal abnormality of the thoracic spinal cord. 2. Minimal anterior wedging of the T5 and T8 superior endplates may be developmental or from remote injury. They are unchanged since 03/19/2013. 3. No MRI evidence of acute or subacute compression fractures of the thoracic spine. Electronically Signed: Ubaldo Manriquez MD at 15:46 EDT , Service support ,
--- NOTE | 2017-08-10 10:18 | PCM.PN.HOSP ---
Patient Problems: Active and Suspected Problems Atypical chest pain (Acute) Unstable angina (Acute) Subjective: Patient denies any acute events overnight per self R per nursing report. He continues to have right upper extremity paresthesias and discomfort into the neck region which has been ongoing and unchanged. He denies any further chest discomfort. 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 Patient does admit to being anxious. Cardiac catheterization performed this morning without acute findings and no need for intervention with medical therapy recommendation. Patient denies fevers, chills, nausea, emesis, abdominal pain or dyspnea. Objective: Physical Examination: General: awake, alert, oriented x 3 and cooperative, laying in the bed, status post recent cardiac catheterization on bedrest. Skin: normal color, turgor, no icterus, cyanosis, dressing in place/compressive. HEENT: AT/NC, EOMI, PERRLA, MMM. Lungs: CTA bilaterally, moderate effort, mild decrease BL bases, no rales, ronchi or wheezing. Heart: Regular rate and rhythm; no gallop, rub audible. Abdomen: soft, obese, NTTP, ND, normal BS. Extremities: no cyanosis, clubbing, notes ongoing subjective RUE paresthesias inclusive of arm to lateral neck and scapular region. Neurological: patient awake, alert, oriented x 3; cognitive function intact; pupils equally reactive to light and accomodation; cranial nerves II-XII grossly normal, moving all 4 extremities although limited w/ current bedrest s/p catheterization, sensation alterations RUE. Psychiatric: affect appears mildly anxious, no acute evidence of depressive feelings. Vitals/I&O's: Vital Signs Temp Pulse Resp BP Pulse Ox 98.6 F 54 L 16 128/87 H 96 08/10/17 08:45 08/10/17 10:05 08/10/17 10:05 08/10/17 10:05 08/10/17 10:05 Oxygen Delivery Method Room Air Weight: 216 lb 11.43 oz Body Mass Index (BMI) 32.0 Intake and Output for Last 24 Hours 08/08/17 08/09/17 08/10/17 23:59 23:59 23:59 Intake Total 200 / 200 Balance 200 / 200 Laboratory Results 08/09/17 22:46: Troponin I < 0.015 08/10/17 02:07: Troponin I < 0.015 08/10/17 04:40: Urine Color Yellow, Urine Clarity Clear, Urine pH 7.0, Ur Specific [place] 1.015, Urine Protein Negative, Urine Glucose (UA) NEGATIVE, Urine Ketones Negative, Urine Occult Blood 25 H, Urine Nitrite Negative, Urine Bilirubin Negative, Urine Urobilinogen Normal, Ur Leukocyte Esterase Negative, Urine RBC 0-5 SEEN, Urine WBC 0 SEEN, Ur Squamous Epith Cells 0 SEEN, Amorphous Sediment 1+, Urine Bacteria 0 SEEN, Urine Mucus 0 SEEN 08/10/17 04:52: Sodium 141, Potassium 3.9, Chloride 110 H, Carbon Dioxide 23.0, Anion Gap 8, BUN 11, Creatinine 0.80, Estim Creat Clear Calc 109.24, Est GFR (MDRD) Af Amer 132, Est GFR (MDRD) Non-Af 109, BUN/Creatinine Ratio 13.8, Glucose 92, Calcium 8.4 L, Triglycerides 198, Cholesterol 164, LDL Cholesterol 92, VLDL Cholesterol 40, HDL Cholesterol 32 L, TSH 2.28 08/10/17 04:52: WBC 5.5, RBC 4.64, Hgb 14.2, Hct 41.4, MCV 89.2, MCH 30.6, MCHC 34.3, RDW 13.9, RDW Differential 44.7 H, Plt Count 200, MPV 9.3, Immature Gran % (Auto) 0.200, Neut % (Auto) 48.6, Lymph % (Auto) 39.5, [place] % (Auto) 8.3, Eos % (Auto) 2.9, Baso % (Auto) 0.5, Absolute Neuts (auto) 2.7, Absolute Lymphs (auto) 2.19, Total Counted Not Reportable 08/10/17 04:52: PT 13.6, INR 1.0, APTT 34.6 08/10/17 04:52: Magnesium 2.1 08/10/17 06:55: POC Glucose 106 Current Medications Aspirin (Ecotrin) 81 mg PO DAILY@0800 [facility] Last Admin: 08/10/17 06:49 Dose: 81 mg Atorvastatin Calcium (Lipitor) 40 mg PO QHS [facility] Last Admin: 08/09/17 23:57 Dose: 40 mg Clonazepam (Klonopin) 0.5 mg PO QHS PRN PRN PRN Reason: SLEEP Last Admin: 08/10/17 01:02 Dose: 0.5 mg Sodium Chloride () 250 mls @ 15 mls/hr IV .[id number] PRN PRN Reason: SALINE FLUSH Sodium Chloride () 1,000 mls @ 15 mls/hr IV .[id number] LIVIER PRN Reason: KVO Last Admin: 08/10/17 08:43 Dose: 15 mls/hr Sodium Chloride () 1,000 mls @ 75 mls/hr IV .[id number] LIVIER Stop: 08/10/17 13:49 Isosorbide Mononitrate (Imdur) 30 mg PO DAILY [facility] Labetalol HCl (Trandate) 5 mg IV X1 PRN PRN Reason: SBP > 160 prior to sheath pull Lisinopril (Zestril) 10 mg PO DAILY [facility] Lorazepam (Ativan) 0.5 mg IV X1 ONE Stop: 08/10/17 10:16 Metoprolol Tartrate (Lopressor (Beta Mariela)) 25 mg PO BID LIVIER Last Admin: 08/10/17 06:50 Dose: 25 mg Nitroglycerin (Nitrostat) 0.4 mg SUBLINGUAL Q5M PRN PRN Reason: CHEST PAIN Sodium Chloride () 5 - 30 ml IV UD PRN PRN Reason: SALINE FLUSH Medical Necessity - Tobacco Use Smoking Status: Current every day smoker Tobacco Use: Cigarettes Assessment/Plan All Active Problems Alcohol withdrawal (Acute) Atypical chest pain (Acute) Unstable angina (Acute) The patient is a 55 y/o M w/ PMHx: Tobacco, EtOH Abuse, Anxiety/Depression/Bipolar disorder, History of Pseudoseizure, Obesity, ? Hx Diabetes mellitus type II who presents to the [facility] ED on 08/09/17 with history of ongoing chest heaviness, midsternal with radiation to the right upper extremity while doing yard work on day of admission with associated nausea, dyspnea and diaphoresis however upon further evaluation patient does admit to ongoing right upper extremity isolated paresthesias which have been ongoing. (1) Atypical Chest Pain w/ RUE Paresthesias, Suspect Cervical, +/- Thoracic Radiculopathy: EKG in ED no acute evidence of ischemia, CXR w/ no acute findings, initial trop normal with repeat ?3 total unremarkable. Admitted to PCU, maintained on monitor without event, serial enzymes unremarkable, chest pain resolved, ongoing RUE paresthesias suspect radiculopathy, Cardiology evaluation w/ medical therapy with aspirin, statin, beta-mariela, lisinopril, Imdur and cardiac catheterization 08/10/17 AM which was not marked appearing. Given unremarkable catheterization suspect presentation more likely ongoing paresthesias suspicious for radiculopathy, MRI cervical and given region description thoracic also pending. Planned follow-up with Cardiology outpatient per discussion with Dr. Mckeon. Once MRI obtained if not immediate intervention needs likely plan discharge to home with follow-up. (2) Hypertension: Maintain on isosorbide, lisinopril, metoprolol regimen, PRN hydralazine. (3) EtOH Abuse w/ Hx DTs Prior: Patient w/ history of consumption of up to ~1 gallon vodka per day. Will maintain on CIWA protocol, MVI, thiamine and folic acid. Mag normal, phos pending. (4) Anxiety and depression/Polar disorder, Hx Pseudoseizures: Only on PRN klonopin, not appropriate regimen, would benefit from re-evaluation regimen and therapy with PCP arrangement at follow-up. (5) Hyperlipidemia: Initiated on statin regimen. AM FLP not severe appearing, triglyceride 198, cholesterol 164, LDL 92, VLDL 40, HDL 32. (6) Tobacco Abuse: Encouraged cessation, inpatient consultation per RT, NR if desired. (7) ? Diabetes mellitus type II: Noted in history, BS appropriate, not on regimen, HgBA1c pending, continue accu checks w/ ISS pending results. (8) GERD: Famotidine. (9) DVT Prophylaxis: SCDs, lovenox. Code Visit OBSV E&M: 79522 Subsequent observation care L3
--- NOTE | 2017-08-10 10:34 | PN_ITS ---
Patient Problems: Active and Suspected Problems Atypical chest pain (Acute) Unstable angina (Acute) Subjective: Patient denies any acute events overnight per self R per nursing report. He continues to have right upper extremity paresthesias and discomfort into the neck region which has been ongoing and unchanged. He denies any further chest discomfort. 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 Patient does admit to being anxious. Cardiac catheterization performed this morning without acute findings and no need for intervention with medical therapy recommendation. Patient denies fevers, chills, nausea, emesis, abdominal pain or dyspnea. Objective: Physical Examination: General: awake, alert, oriented x 3 and cooperative, laying in the bed, status post recent cardiac catheterization on bedrest. Skin: normal color, turgor, no icterus, cyanosis, dressing in place/compressive. HEENT: AT/NC, EOMI, PERRLA, MMM. Lungs: CTA bilaterally, moderate effort, mild decrease BL bases, no rales, ronchi or wheezing. Heart: Regular rate and rhythm; no gallop, rub audible. Abdomen: soft, obese, NTTP, ND, normal BS. Extremities: no cyanosis, clubbing, notes ongoing subjective RUE paresthesias inclusive of arm to lateral neck and scapular region. Neurological: patient awake, alert, oriented x 3; cognitive function intact; pupils equally reactive to light and accomodation; cranial nerves II-XII grossly normal, moving all 4 extremities although limited w/ current bedrest s/ p catheterization, sensation alterations RUE. Psychiatric: affect appears mildly anxious, no acute evidence of depressive feelings. Vitals/I&O's: Vital Signs Temp Pulse Resp BP Pulse Ox 98.6 F 54 L 16 128/87 H 96 08/10/17 08:45 08/10/17 10:05 08/10/17 10:05 08/10/17 10:05 08/10/17 10:05 Oxygen Delivery Method Room Air Weight: 216 lb 11.43 oz Body Mass Index (BMI) 32.0 Intake and Output for Last 24 Hours 08/08/17 08/09/17 08/10/17 23:59 23:59 23:59 Intake Total 200 / 200 Balance 200 / 200 Laboratory Results 08/09/17 22:46: Troponin I < 0.015 08/10/17 02:07: Troponin I < 0.015 08/10/17 04:40: Urine Color Yellow, Urine Clarity Clear, Urine pH 7.0, Ur Specific [place] 1.015, Urine Protein Negative, Urine Glucose (UA) NEGATIVE, Urine Ketones Negative, Urine Occult Blood 25 H, Urine Nitrite Negative, Urine Bilirubin Negative, Urine Urobilinogen Normal, Ur Leukocyte Esterase Negative, Urine RBC 0-5 SEEN, Urine WBC 0 SEEN, Ur Squamous Epith Cells 0 SEEN, Amorphous Sediment 1+, Urine Bacteria 0 SEEN, Urine Mucus 0 SEEN 08/10/17 04:52: Sodium 141, Potassium 3.9, Chloride 110 H, Carbon Dioxide 23.0, Anion Gap 8, BUN 11, Creatinine 0.80, Estim Creat Clear Calc 109.24, Est GFR ( MDRD) Af Amer 132, Est GFR (MDRD) Non-Af 109, BUN/Creatinine Ratio 13.8, Glucose 92, Calcium 8.4 L, Triglycerides 198, Cholesterol 164, LDL Cholesterol 92, VLDL Cholesterol 40, HDL Cholesterol 32 L, TSH 2.28 08/10/17 04:52: WBC 5.5, RBC 4.64, Hgb 14.2, Hct 41.4, MCV 89.2, MCH 30.6, MCHC 34.3, RDW 13.9, RDW Differential 44.7 H, Plt Count 200, MPV 9.3, Immature Gran % (Auto) 0.200, Neut % (Auto) 48.6, Lymph % (Auto) 39.5, [place] % (Auto) 8.3, Eos % (Auto) 2.9, Baso % (Auto) 0.5, Absolute Neuts (auto) 2.7, Absolute Lymphs ( auto) 2.19, Total Counted Not Reportable 08/10/17 04:52: PT 13.6, INR 1.0, APTT 34.6 08/10/17 04:52: Magnesium 2.1 08/10/17 06:55: POC Glucose 106 Current Medications Aspirin (Ecotrin) 81 mg PO DAILY@0800 [facility] Last Admin: 08/10/17 06:49 Dose: 81 mg Atorvastatin Calcium (Lipitor) 40 mg PO QHS [facility] Last Admin: 08/09/17 23:57 Dose: 40 mg Clonazepam (Klonopin) 0.5 mg PO QHS PRN PRN PRN Reason: SLEEP Last Admin: 08/10/17 01:02 Dose: 0.5 mg Sodium Chloride () 250 mls @ 15 mls/hr IV .[id number] PRN PRN Reason: SALINE FLUSH Sodium Chloride () 1,000 mls @ 15 mls/hr IV .Q48H [facility] PRN Reason: KVO Last Admin: 08/10/17 08:43 Dose: 15 mls/hr Sodium Chloride () 1,000 mls @ 75 mls/hr IV .[id number] [facility] Stop: 08/10/17 13:49 Isosorbide Mononitrate (Imdur) 30 mg PO DAILY [facility] Labetalol HCl (Trandate) 5 mg IV X1 PRN PRN Reason: SBP > 160 prior to sheath pull Lisinopril (Zestril) 10 mg PO DAILY [facility] Lorazepam (Ativan) 0.5 mg IV X1 ONE Stop: 08/10/17 10:16 Metoprolol Tartrate (Lopressor (Beta Mariela)) 25 mg PO BID [facility] Last Admin: 08/10/17 06:50 Dose: 25 mg Nitroglycerin (Nitrostat) 0.4 mg SUBLINGUAL Q5M PRN PRN Reason: CHEST PAIN Sodium Chloride () 5 - 30 ml IV UD PRN PRN Reason: SALINE FLUSH Medical Necessity - Tobacco Use Smoking Status: Current every day smoker Tobacco Use: Cigarettes Assessment/Plan All Active Problems Alcohol withdrawal (Acute) Atypical chest pain (Acute) Unstable angina (Acute) The patient is a 55 y/o M w/ PMHx: Tobacco, EtOH Abuse, Anxiety/Depression/ Bipolar disorder, History of Pseudoseizure, Obesity, ? Hx Diabetes mellitus type II who presents to the [facility] ED on 08/09/17 with history of ongoing chest heaviness, midsternal with radiation to the right upper extremity while doing yard work on day of admission with associated nausea, dyspnea and diaphoresis however upon further evaluation patient does admit to ongoing right upper extremity isolated paresthesias which have been ongoing. (1) Atypical Chest Pain w/ RUE Paresthesias, Suspect Cervical, +/- Thoracic Radiculopathy: EKG in ED no acute evidence of ischemia, CXR w/ no acute findings , initial trop normal with repeat ?3 total unremarkable. Admitted to PCU, maintained on monitor without event, serial enzymes unremarkable, chest pain resolved, ongoing RUE paresthesias suspect radiculopathy, Cardiology evaluation w/ medical therapy with aspirin, statin, beta-mariela, lisinopril, Imdur and cardiac catheterization 08/10/17 AM which was not marked appearing. Given unremarkable catheterization suspect presentation more likely ongoing paresthesias suspicious for radiculopathy, MRI cervical and given region description thoracic also pending. Planned follow-up with Cardiology outpatient per discussion with Dr. Mckeon. Once MRI obtained if not immediate intervention needs likely plan discharge to home with follow-up. (2) Hypertension: Maintain on isosorbide, lisinopril, metoprolol regimen, PRN hydralazine. (3) EtOH Abuse w/ Hx DTs Prior: Patient w/ history of consumption of up to ~1 gallon vodka per day. Will maintain on CIWA protocol, MVI, thiamine and folic acid. Mag normal, phos pending. (4) Anxiety and depression/Polar disorder, Hx Pseudoseizures: Only on PRN klonopin, not appropriate regimen, would benefit from re-evaluation regimen and therapy with PCP arrangement at follow-up. (5) Hyperlipidemia: Initiated on statin regimen. AM FLP not severe appearing, triglyceride 198, cholesterol 164, LDL 92, VLDL 40, HDL 32. (6) Tobacco Abuse: Encouraged cessation, inpatient consultation per RT, NR if desired. (7) ? Diabetes mellitus type II: Noted in history, BS appropriate, not on regimen, HgBA1c pending, continue accu checks w/ ISS pending results. (8) GERD: Famotidine. (9) DVT Prophylaxis: SCDs, lovenox. Code Visit OBSV E&M: 15918 Subsequent observation care L3
[2017-08-10 10:56] LABS: Phosphorus 3.2 mg/dL (2.5-4.9)
[2017-08-10 11:03] LABS: Hemoglobin A1c 5.2 % (4.2-6.3)
[2017-08-10] MEDS: Folic Acid 1 MG Tablet PO (11:04)
[2017-08-10] MEDS: Isosorbide Mononitrate 30 MG Tablet PO (11:04)
[2017-08-10] MEDS: LORazepam 2 MG/ML Syringe 0.5 MG IV (11:05)
[2017-08-10] MEDS: Lisinopril 10 MG Tablet PO (11:05)
[2017-08-10] MEDS: Thiamine Hydrochloride 100 MG Tablet PO (11:33)
--- NOTE | 2017-08-10 15:54 | DCINST_ITS ---
- Discharge Diagnoses Current Active Problems: Current Active and Chronic Problems (1) Atypical Chest Pain, Ruled out ACD (2) [place] Multivessel CAD (Cardiac catheterization with no PCI required) (3) RUE Paresthesias, Suspect Cervical, +/- Thoracic Radiculopathy (Pending MRI cervical, thoracic upon discharge, declined to wait for read) (4) Hypertension (5) Hyperlipidemia (6) EtOH Abuse w/ Hx DTs Prior (7) Anxiety and depression/Bipolar disorder, Hx Pseudoseizures (8) Tobacco Abuse (9) ? Diabetes mellitus type II, RULED OUT, Hgb: Noted in history, BS appropriate, not on regimen, HgBA1c 5.2% (8) GERD You will use the following diet at home:: Cardiac Your food should be the consistency of: Regular Your liquids should be the consistency of: Regular/Thin Discharge Activity: - - Advise evaluation per Primary care physician and Orthopedics with review of MRI cervical region and thoracic region prior to aggressive activity. May resume sexual activity in: 10-14 days Weight Bearing Status: Weight bearing as tolerated Call your doctor if you observe: Fever of 101 or Higher, Numbness or Tingling, Inability to urinate, Inability to have a bowel movement, Shortness of breath, Dizziness, Fainting spells, Chest pain, Uncontrolled pain Instructions: Understanding Coronary Artery Disease (CAD), What Is High Blood Pressure?, Controlling High Blood Pressure, Low-Salt Choices, Discharge Instructions for High Blood Pressure (Hypertension), Cholesterol Medications, The Impact of Alcoholism, Alcohol Withdrawal: What to Expect, Addiction: Ask Yourself These Questions, Addiction: Getting Help, Addiction: Your Treatment Options, ED Cervical Radiculopathy Additional Instructions: You have been started on blood pressure regimen and statin therapies per Cardiology recommendation. Please continue this regimen but if you note low blood pressures please hold this medication and notify Dr. Mckeon. Allergies/Adverse Reactions: Allergies amoxicillin [Amoxicillin] Allergy (Verified 04/18/17 00:07) Anaphylaxis Penicillins Allergy (Verified 04/18/17 00:07) Anaphylaxis Medications to take at Discharge Aspirin [Aspirin, Baby] 81 mg PO DAILY@0800 08/09/17 Clonazepam [Klonopin] 0.5 mg PO Q6H PRN 08/09/17 Ibuprofen 400 mg PO Q6H PRN 08/09/17 Atorvastatin Calcium [Lipitor] 40 mg PO QHS #30 tab 08/10/17 Folic Acid 1 mg PO DAILY@0800 #30 tab 08/10/17 Isosorbide Mononitrate [Imdur] 30 mg PO DAILY #30 tab 08/10/17 Lisinopril [Zestril] 10 mg PO DAILY #30 tab 08/10/17 Metoprolol Tartrate [Lopressor (beta clem)] 25 mg PO BID #60 tab 08/10/17 Multivitamins,Ther W-Minerals [Multivitamin With Minerals] 1 tab PO DAILYCM #30 tab 08/10/17 Thiamine Hydrochloride [Vitamin B1] 100 mg PO DAILY #30 tab 08/10/17 The following prescriptions were given: Atorvastatin Calcium [Lipitor] 40 mg PO QHS #30 tab Folic Acid 1 mg PO DAILY@0800 #30 tab Isosorbide Mononitrate [Imdur] 30 mg PO DAILY #30 tab Lisinopril [Zestril] 10 mg PO DAILY #30 tab Multivitamins,Ther W-Minerals [Multivitamin With Minerals] 1 tab PO DAILYCM #30 tab Thiamine Hydrochloride [Vitamin B1] 100 mg PO DAILY #30 tab Metoprolol Tartrate [Lopressor (beta clem)] 25 mg PO BID #60 tab Primary Care Physician: Edison Shannon MD [Primary Care Provider] - Please follow up with your Primary Care Physician in: Follow-up within 3-5 days to review admission. Please Follow Up With: Phil Mckeon MD When: Follow-up within 1-2 weeks, may see [employer] or per their recommendation Please Follow Up With: Osmani New MD When: Follow-up within 1-2 weeks to review MRI, evaluation radiculopathy Proposed Discharge Date: 08/10/17
--- NOTE | 2017-08-10 15:58 | PCM.DC.SUM ---
Discharge Date and Diagnosis - Problem List Patient Problems: Active and Suspected Problems Atypical chest pain (Acute) Unstable angina (Acute) Date of Admission: 08/09/17 Date of Discharge: 08/10/17 - Primary Discharge Diagnosis Active and Suspected Problems (1) Atypical Chest Pain, Ruled out ACD (2) [place] Multivessel CAD (Cardiac catheterization with no PCI required) (3) RUE Paresthesias, Suspect Cervical, +/- Thoracic Radiculopathy (Pending MRI cervical, thoracic upon discharge, declined to wait for read) (4) Hypertension (5) Hyperlipidemia (6) EtOH Abuse w/ Hx DTs Prior (7) Anxiety and depression/Bipolar disorder, Hx Pseudoseizures (8) Tobacco Abuse (9) ? Diabetes mellitus type II, RULED OUT, Hgb: Noted in history, BS appropriate, not on regimen, HgBA1c 5.2% (8) GERD - Secondary Discharge Diagnosis Chronic Problems Alcohol withdrawal delirium, acute, hyperactive (Chronic) DM type 2 (diabetes mellitus, type 2) (Chronic) Bipolar 1 disorder (Chronic) History of kidney stones (Chronic) Continuous chronic alcoholism (Chronic) up to 1 gallon vodka daily Tobacco use (Chronic) Psychiatric pseudoseizure (Chronic) Delirium tremens (Chronic) Homelessness (Chronic) Benign essential hypertension (Chronic) Hospital Course and Treatment Imaging Results: 08/10/17 10:16 MRI Thoracic [Spine Thoracic (Routine)] [MRI] Urgent Spine Cervical (Routine) [MRI] Urgent Dr. Mckeon Cardiology Operations: None Procedures: 2-D Echocardiogram, Cardiac catheterization, EKG Summary of Care Provided: The patient is a 52 y/o M w/ PMHx: Tobacco, EtOH Abuse, Anxiety/Depression/Bipolar disorder, History of Pseudoseizure, Obesity, ? Hx Diabetes mellitus type II who presents to the [facility] ED on 08/09/17 with history of ongoing chest heaviness, midsternal with radiation to the right upper extremity while doing yard work on day of admission with associated nausea, dyspnea and diaphoresis however upon further evaluation patient does admit to ongoing right upper extremity isolated paresthesias which have been ongoing. EKG in ED no acute evidence of ischemia, CXR w/ no acute findings, initial trop normal with repeat ?3 total unremarkable. Admitted to PCU, maintained on monitor without event, serial enzymes unremarkable, chest pain resolved, ongoing RUE paresthesias suspect radiculopathy, Cardiology evaluation w/ medical therapy with aspirin, statin, beta-clem, lisinopril, Imdur and cardiac catheterization 08/10/17 AM which was not marked appearing. Echocardiogram with normal LV systolic function, EF 60%, trivial MV insufficiency, trivial TV insufficiency. Given unremarkable catheterization suspected presentation more likely to ongoing paresthesias suspicious for radiculopathy, MRI cervical and thoracic region obtained; however, patient noted inability to stay to review results thus upon discharge these results were pending w/ encouraged follow-up with Dr. New to review and have assessment for his radiculopathy understanding that he may need to be transitioned from Orthopedics to Neurosurgical evaluation pending his results. Planned follow-up with Cardiology outpatient per discussion with Dr. Mckeon with discharge regimen including asa, statin isosorbide, lisinopril, metoprolol regimen. Given patient EtOH Abuse w/ Hx DTs Prior maintained on CIWA protocol, MVI, thiamine and folic acid. Mag normal, phos normal. Patient w/ history of Anxiety and depression/Bipolar disorder, Hx Pseudoseizures only on PRN klonopin, not appropriate regimen, would benefit from re-evaluation regimen and therapy with PCP arrangement at follow-up. Encouraged tobacco cessation, inpatient consultation per RT. Noted DM on history; however, BS not elevated, HgbA1c obtained and normal, 5.2%. Patient as noted unwilling to remain for review of MRI results to assess need for Orthopedic versus Neurosurgical evaluation, thus upon discharge as noted referred to Orthopedics w/ pending MRI results. He noted he had to be promptly outside at 5 pm to meet the Taxi in order to clam picker his granddaughter. Discharge Activity: - - Advise evaluation per Primary care physician and Orthopedics with review of MRI cervical region and thoracic region prior to aggressive activity. May resume sexual activity in: 10-14 days Weight Bearing Status: Weight bearing as tolerated Call your doctor if you observe: Fever of 101 or Higher, Numbness or Tingling, Inability to urinate, Inability to have a bowel movement, Shortness of breath, Dizziness, Fainting spells, Chest pain, Uncontrolled pain Home Medications: Medications to take at Discharge Aspirin [Aspirin, Baby] 81 mg PO DAILY@0800 08/09/17 Clonazepam [Klonopin] 0.5 mg PO Q6H PRN 06/19/18 Ibuprofen 400 mg PO Q6H PRN 08/09/17 Atorvastatin Calcium [Lipitor] 40 mg PO QHS #30 tab 08/10/17 Folic Acid 1 mg PO DAILY@0800 #30 tab 08/10/17 Isosorbide Mononitrate [Imdur] 30 mg PO DAILY #30 tab 08/10/17 Lisinopril [Zestril] 10 mg PO DAILY #30 tab 08/10/17 Metoprolol Tartrate [Lopressor (beta clem)] 25 mg PO BID #60 tab 08/10/17 Multivitamins,Ther W-Minerals [Multivitamin With Minerals] 1 tab PO DAILYCM #30 tab 08/10/17 Thiamine Hydrochloride [Vitamin B1] 100 mg PO DAILY #30 tab 08/10/17 Following Prescrptions Were Given to Patient: Atorvastatin Calcium [Lipitor] 40 mg PO QHS #30 tab Folic Acid 1 mg PO DAILY@0800 #30 tab Isosorbide Mononitrate [Imdur] 30 mg PO DAILY #30 tab Lisinopril [Zestril] 10 mg PO DAILY #30 tab Multivitamins,Ther W-Minerals [Multivitamin With Minerals] 1 tab PO DAILYCM #30 tab Thiamine Hydrochloride [Vitamin B1] 100 mg PO DAILY #30 tab Metoprolol Tartrate [Lopressor (beta clem)] 25 mg PO BID #60 tab Primary Care Physician: Edison Shannon MD [Primary Care Provider] - Please follow up with your Primary Care Physician in: Follow-up within 3-5 days to review admission. Please Follow Up With: Phil Mckeon MD When: Follow-up within 1-2 weeks, may see [facility] [employer] or per their recommendation Please Follow Up With: Osmani New MD When: Follow-up within 1-2 weeks to review MRI, evaluation radiculopathy Patient Instructions: Cholesterol Medications, Controlling High Blood Pressure, Low-Salt Choices, The Impact of Alcoholism, Alcohol Withdrawal: What to Expect, Addiction: Ask Yourself These Questions, Addiction: Getting Help, Addiction: Your Treatment Options, Understanding Coronary Artery Disease (CAD), What Is High Blood Pressure?, Discharge Instructions for High Blood Pressure (Hypertension), ED Cervical Radiculopathy Disposition: Home Minutes spent on discharge:: 35 Patient Condition:: Fair Medical Necessity - Tobacco Use Smoking Status: Current every day smoker Tobacco Use: Cigarettes Meaningful Use Info Meaningful Use Diagnoses (Choose all that apply): None applicable Code Visit OBSV E&M: 20933 Observation care discharge
--- NOTE | 2017-08-10 16:06 | DS.PCM_ITS ---
Discharge Date and Diagnosis - Problem List Patient Problems: Active and Suspected Problems Atypical chest pain (Acute) Unstable angina (Acute) Date of Admission: 08/09/17 Date of Discharge: 08/10/17 - Primary Discharge Diagnosis Active and Suspected Problems (1) Atypical Chest Pain, Ruled out ACD (2) [place] Multivessel CAD (Cardiac catheterization with no PCI required) (3) RUE Paresthesias, Suspect Cervical, +/- Thoracic Radiculopathy (Pending MRI cervical, thoracic upon discharge, declined to wait for read) (4) Hypertension (5) Hyperlipidemia (6) EtOH Abuse w/ Hx DTs Prior (7) Anxiety and depression/Bipolar disorder, Hx Pseudoseizures (8) Tobacco Abuse (9) ? Diabetes mellitus type II, RULED OUT, Hgb: Noted in history, BS appropriate, not on regimen, HgBA1c 5.2% (8) GERD - Secondary Discharge Diagnosis Chronic Problems Alcohol withdrawal delirium, acute, hyperactive (Chronic) DM type 2 (diabetes mellitus, type 2) (Chronic) Bipolar 1 disorder (Chronic) History of kidney stones (Chronic) Continuous chronic alcoholism (Chronic) up to 1 gallon vodka daily Tobacco use (Chronic) Psychiatric pseudoseizure (Chronic) Delirium tremens (Chronic) Homelessness (Chronic) Benign essential hypertension (Chronic) Hospital Course and Treatment Imaging Results: 08/10/17 10:16 MRI Thoracic [Spine Thoracic (Routine)] [MRI] Urgent Spine Cervical (Routine) [MRI] Urgent Dr. Mckeon Cardiology Operations: None Procedures: 2-D Echocardiogram, Cardiac catheterization, EKG Summary of Care Provided: The patient is a 52 y/o M w/ PMHx: Tobacco, EtOH Abuse, Anxiety/Depression/ Bipolar disorder, History of Pseudoseizure, Obesity, ? Hx Diabetes mellitus type II who presents to the [facility] ED on 08/09/17 with history of ongoing chest heaviness, midsternal with radiation to the right upper extremity while doing yard work on day of admission with associated nausea, dyspnea and diaphoresis however upon further evaluation patient does admit to ongoing right upper extremity isolated paresthesias which have been ongoing. EKG in ED no acute evidence of ischemia, CXR w/ no acute findings, initial trop normal with repeat ?3 total unremarkable. Admitted to PCU, maintained on monitor without event, serial enzymes unremarkable, chest pain resolved, ongoing RUE paresthesias suspect radiculopathy, Cardiology evaluation w/ medical therapy with aspirin, statin, beta-clem, lisinopril, Imdur and cardiac catheterization 08/10/17 AM which was not marked appearing. Echocardiogram with normal LV systolic function , EF 60%, trivial MV insufficiency, trivial TV insufficiency. Given unremarkable catheterization suspected presentation more likely to ongoing paresthesias suspicious for radiculopathy, MRI cervical and thoracic region obtained; however, patient noted inability to stay to review results thus upon discharge these results were pending w/ encouraged follow-up with Dr. New to review and have assessment for his radiculopathy understanding that he may need to be transitioned from Orthopedics to Neurosurgical evaluation pending his results. Planned follow-up with Cardiology outpatient per discussion with Dr. Mckeon with discharge regimen including asa, statin isosorbide, lisinopril, metoprolol regimen. Given patient EtOH Abuse w/ Hx DTs Prior maintained on CIWA protocol, MVI, thiamine and folic acid. Mag normal, phos normal. Patient w/ history of Anxiety and depression/Bipolar disorder, Hx Pseudoseizures only on PRN klonopin, not appropriate regimen, would benefit from re-evaluation regimen and therapy with PCP arrangement at follow-up. Encouraged tobacco cessation, inpatient consultation per RT. Noted DM on history; however, BS not elevated, HgbA1c obtained and normal, 5.2%. Patient as noted unwilling to remain for review of MRI results to assess need for Orthopedic versus Neurosurgical evaluation, thus upon discharge as noted referred to Orthopedics w/ pending MRI results. He noted he had to be promptly outside at 5 pm to meet the Taxi in order to pick up attendant his granddaughter. Discharge Activity: - - Advise evaluation per Primary care physician and Orthopedics with review of MRI cervical region and thoracic region prior to aggressive activity. May resume sexual activity in: 10-14 days Weight Bearing Status: Weight bearing as tolerated Call your doctor if you observe: Fever of 101 or Higher, Numbness or Tingling, Inability to urinate, Inability to have a bowel movement, Shortness of breath, Dizziness, Fainting spells, Chest pain, Uncontrolled pain Home Medications: Medications to take at Discharge Aspirin [Aspirin, Baby] 81 mg PO DAILY@0800 08/09/17 Clonazepam [Klonopin] 0.5 mg PO Q6H PRN 06/19/18 Ibuprofen 400 mg PO Q6H PRN 08/09/17 Atorvastatin Calcium [Lipitor] 40 mg PO QHS #30 tab 08/10/17 Folic Acid 1 mg PO DAILY@0800 #30 tab 08/10/17 Isosorbide Mononitrate [Imdur] 30 mg PO DAILY #30 tab 08/10/17 Lisinopril [Zestril] 10 mg PO DAILY #30 tab 08/10/17 Metoprolol Tartrate [Lopressor (beta clem)] 25 mg PO BID #60 tab 08/10/17 Multivitamins,Ther W-Minerals [Multivitamin With Minerals] 1 tab PO DAILYCM #30 tab 08/10/17 Thiamine Hydrochloride [Vitamin B1] 100 mg PO DAILY #30 tab 08/10/17 Following Prescrptions Were Given to Patient: Atorvastatin Calcium [Lipitor] 40 mg PO QHS #30 tab Folic Acid 1 mg PO DAILY@0800 #30 tab Isosorbide Mononitrate [Imdur] 30 mg PO DAILY #30 tab Lisinopril [Zestril] 10 mg PO DAILY #30 tab Multivitamins,Ther W-Minerals [Multivitamin With Minerals] 1 tab PO DAILYCM #30 tab Thiamine Hydrochloride [Vitamin B1] 100 mg PO DAILY #30 tab Metoprolol Tartrate [Lopressor (beta clem)] 25 mg PO BID #60 tab Primary Care Physician: Edison Shannon MD [Primary Care Provider] - Please follow up with your Primary Care Physician in: Follow-up within 3-5 days to review admission. Please Follow Up With: Phil Mckeon MD When: Follow-up within 1-2 weeks, may see REGISTERED RESPIRATORY THERAPIST or per their recommendation Please Follow Up With: Osmani New MD When: Follow-up within 1-2 weeks to review MRI, evaluation radiculopathy Patient Instructions: Cholesterol Medications, Controlling High Blood Pressure , Low-Salt Choices, The Impact of Alcoholism, Alcohol Withdrawal: What to Expect , Addiction: Ask Yourself These Questions, Addiction: Getting Help, Addiction: Your Treatment Options, Understanding Coronary Artery Disease (CAD), What Is High Blood Pressure?, Discharge Instructions for High Blood Pressure ( Hypertension), ED Cervical Radiculopathy Disposition: Home Minutes spent on discharge:: 35 Patient Condition:: Fair Medical Necessity - Tobacco Use Smoking Status: Current every day smoker Tobacco Use: Cigarettes Meaningful Use Info Meaningful Use Diagnoses (Choose all that apply): None applicable Code Visit OBSV E&M: 24355 Observation care discharge
== END 2017-08-10 15:53 | disposition home or self-care (01) ==
LOC: ED 20:15 → PCU 21:04
PROVIDERS: Admitting Provider Internal Medicine; Emergency Provider Emergency Medicine; Family Provider Family Medicine; PCP Family Medicine; Visit Provider Family Medicine
DX: R07.89 Other chest pain (principal); I10 Essential (primary) hypertension; E78.5 Hyperlipidemia, unspecified; R20.2 Paresthesia of skin; K21.9 Gastro-esophageal reflux disease without esophagitis; Z79.899 Other long term (current) drug therapy; Z79.82 Long term (current) use of aspirin; Z59.0 Homelessness; F10.239 Alcohol dependence with withdrawal, unspecified; F31.9 Bipolar disorder, unspecified; E66.9 Obesity, unspecified; Z68.32 Body mass index [BMI] 32.0-32.9, adult; Z71.3 Dietary counseling and surveillance; F17.210 Nicotine dependence, cigarettes, uncomplicated; F41.9 Anxiety disorder, unspecified; I25.10 Atherosclerotic heart disease of native coronary artery without angina pectoris
CPT/HCPCS: 36415; 71045; 72141; 72146; 80048; 80061; 81001; 82962; 83036; 83735; 84100; 84443; 84484; 85025; 85610; 85730; 93005; 93306; 93458; 96372; 96374; 99152; 99153; 99218; 99285; 99406; J7030; A4216; C1769; G0378; Q9967

== ENCOUNTER 2017-11-04 06:39 | Emergency (ER) | payer SELFPAY ==
[2017-11-04 06:40] VITALS: BP 132/80; PULSE 88; RESP 18; TEMP 36.4; O2SAT 100; BMI 30.2
--- NOTE | 2017-11-04 07:02 | CT_ITS ---
STUDY: CT ABDOMEN AND PELVIS WITHOUT CONTRAST REASON FOR EXAM: Male, 52 years old. Left flank pain RADIATION DOSAGE (If Supplied By Facility): CTDIvol = ( 13.76 ) mGy, DLP = ( 680.52 ) mGycm TECHNIQUE: Transaxial images were obtained from the dome of the diaphragm to the symphysis pubis without oral contrast, and without intravenous contrast. Sagittal and coronal images were reconstructed. Individualized dose optimization techniques were used for this CT. COMPARISON: None. FINDINGS: The lung bases are clear. There is hepatomegaly with fatty infiltration. There are no gallstones. The spleen is normal. The pancreas is normal. Both adrenals are normal. The right kidney is normal. There are at least 2 calyceal calculi in the inferior pole with the larger one measuring 9.4 mm. No hydronephrosis on either side. The stomach is normal. There is no bowel distention, acute appendicitis or diverticulitis. No constricting lesions are seen in large bowel. The abdominal wall is intact with no hernias. There is no ascites or any free intraperitoneal air. No indication of epiploic appendagitis The vascular structures in the retroperitoneum are normal. There is no retrocrural, retroperitoneal or mesenteric adenopathy. The bones and joints are normal. The urinary bladder is normal.--The prostate is not enlarged. There is no inguinal or pelvic adenopathy. There is no inguinal hernia. . CT/Abdomen/Pelvis without Cont IMPRESSION: Hepatomegaly with fatty infiltration of the liver. No acute appendicitis or diverticulitis. At least 2 left inferior pole calyceal calculi with the larger of the 2 measuring 9.4 mm. No hydronephrosis on either side. Electronically Signed: Matheus Murphy, at 7:57 EDT Tel , Service support ,
--- NOTE | 2017-11-04 07:04 | ED.VISSUMM ---
- ER Visit Summary Date of Service: 11/04/17 Chief Complaint: Left flank pain History of Present Illness: The patient is a 52 M with left flank pain for the last week, worsened over the past 24 hours. He reports hematuria in the morning and weakened urinary stream. He has had nausea and vomiting secondary to pain in the past 24 hours. Patient does have a history of kidney stones. CT scan from December 2016 revealed 3 small stones in the left kidney. He has required lithotripsy in the past. Physical Examination: Vital signs unremarkable. Patient sitting upright in bed. He is anxious and uncomfortable, but in no distress. Head neck examination unremarkable. Heart is regular rate and rhythm. Lung sounds are clear. Abdomen is soft and nontender. Back examination reveals no true CVA tenderness, but does have tenderness in the left low lumbar paraspinals. Test Results: CBC is significant only for platelet count of 100,000. Chemistry studies normal. Urinalysis shows 0-5 whites and 0-5 reds. 1+ calcium crystals is noted. CT flank shows fatty liver. There are at least 2 left inferior pole calyceal calculi, larger of the 2 measuring 9.4 mm. No hydronephrosis noted at this time. Emergency Department Course and Treatment: Patient was initially given Toradol, morphine, Zofran, and IV fluids. Due to continued pain he did receive a single dose of Dilaudid 0.5 mg. On repeat evaluation he states the second pain shot is starting to kick in. I believe the patient likely has passed a stone recently or is passing small fragments from the remaining stones. He will be given a dose of [place] now and given prescriptions for [place], Toradol, and Zofran. Patient states that Dr. Walker's office does not accept his insurance, so he will be given information for Dr. Carlson, urologist on-call today. Treatment Plan: [] Disposition: Discharge Impression: Renal colic This note was generated with [employer] dictation software. It may contain incorrect words, spelling, and punctuation that were not noted in review of the chart prior to signing ED Disposition - Plan for ED Patient: Chief Complaint: Flank Pain Referrals: Edison Shannon MD [Primary Care Provider] -
[2017-11-04 07:10] LABS: Mucous, Urine 0 SEEN /hpf (<or=2+); Squamous Epithelial Cells - UA 0 SEEN /hpf (0-5)
[2017-11-04] MEDS: 0.9% Normal Saline 1,000 ML 250 ML IV (07:11)
[2017-11-04] MEDS: Ondansetron 4 MG/2 ML Vial IV (07:11)
[2017-11-04] MEDS: Ketorolac 30 MG/ML Syringe IV (07:11)
[2017-11-04] MEDS: Morphine 4 MG/ML Syringe IV (07:11)
[2017-11-04 07:19] LABS: Absolute Lymphocyte Count 1.78 X10^3/ul (0.83-4.51); Absolute Neutrophil Count 3.7 X10^3/uL (2.0-7.7); Basophil# 0.03 X10^3/uL; Basophil% 0.5 % (0-1); Eosinophil# 0.18 X10^3/uL; Eosinophils% 2.9 % (0-5); Hematocrit 46.2 % (40-54); Lymphocyte # 1.78 X10^3/ul (4.0); Lymphocyte % 28.3 % (19-41); Mean Corp Hgb Conc 34.6 g/gl (32-36); Mean Corpuscular Hgb 32.2 pg (27.0-32.0); Mean Platelet Vol. 10.4 fl (6.2-12.0); Monocyte# 0.57 X10^3/uL; Monocyte% 9.1 % (0-10); Neutrophil # 3.71 X10^3/uL (2.7-7.7); Platelet Count 100 K/mm3 (150-450); RBC Distribution Width CV 13.6 % (11.6-14.6); RBC Distribution Width SD 46.1 fl (35.1-43.9); Red Blood Count 4.97 M/mm3 (4.6-6.2); White Blood Count 6.3 K/mm3 (4.4-11.0)
[2017-11-04 07:20] LABS: Anion Gap 9 (5-15); BUN 11 mg/dL (7-18); BUN/Creat Ratio 13.5 RATIO (10-20); Calcium,Total 8.6 mg/dL (8.5-10.1); Chloride 110 mmol/L (98-107); Creatinine, Serum 0.82 mg/dL (0.70-1.30); EST Glomerular Filtration Rate 106 mL/min (>60); Est Glom Filt Rate - Afr Amer 128 mL/min (>60); Estimated Creatinine Clearance 106.58 ml/min; Glucose 87 mg/dL (74-106); POSITIVE COUNT NO; POSITIVE DIFFERENTIAL NO; POSITIVE MORPHOLOGY NO; Potassium 3.9 mmol/L (3.5-5.1); Sodium Level 140 mmol/L (136-145)
[2017-11-04 07:37] LABS: Color, Urine Yellow (Yellow); Glucose, Dipstick Normal (Normal); Ketone-Dipstick Negative (Negative); Leukocyte Esterase-Dipstick 25 /ul (Negative); Nitrite-Dipstick Negative (Negative); Occult Blood-Urine 250 /ul (Negative); Protein-Dipstick 15 mg/dl (Negative); Urine Bilirubin Dipstick Negative (Negative); Urine Clarity Sl. Cloudy (Clear); Urine Urobilinogen 1 mg/dl (Normal)
[2017-11-04] MEDS: HYDROmorphone 0.5 MG/0.5 ML SYRINGE IV (07:42)
[2017-11-04 07:51] LABS: Bacteria 1+ /hpf (None Seen); Calcium Oxalate Crystals Ur 1+ /hpf (<or=2+); Red Blood Cells-Urine 0-5 SEEN /hpf (0-5); White Blood Cells 0-5 SEEN /hpf (0-5)
--- NOTE | 2017-11-04 08:10 | ED.DEP ---
ED Disposition - Plan for ED Patient: Disposition: Home or Assisted Living Chief Complaint: Flank Pain Instructions: ED Stone Renal Passed Prescriptions: Ondansetron [Zofran Odt] 4 mg PO Q8H PRN PRN #10 tab PRN Reason: Nausea Hydrocodone/Acetaminophen [[place] 5-325 Tablet] 1 - 2 each PO 4X/DAY PRN PRN 3 Days #12 tablet PRN Reason: Pain Ketorolac [Toradol] 10 mg PO Q6H PRN #14 tab PRN Reason: Pain Referrals: Edison Shannon MD [Primary Care Provider] - Velia Carlson MD [STAFF PHYSICIAN] - 3-5 Days if not improving
--- NOTE | 2017-11-04 08:14 | DCINST.ED_ITS ---
ED Disposition - Plan for ED Patient: Disposition: Home or Assisted Living Chief Complaint: Flank Pain Instructions: ED Stone Renal Passed Prescriptions: Ondansetron [Zofran Odt] 4 mg PO Q8H PRN PRN #10 tab PRN Reason: Nausea Hydrocodone/Acetaminophen [[place] 5-325 Tablet] 1 - 2 each PO 4X/DAY PRN PRN 3 Days #12 tablet PRN Reason: Pain Ketorolac [Toradol] 10 mg PO Q6H PRN #14 tab PRN Reason: Pain Referrals: Edison Shannon MD [Primary Care Provider] - Velia Carlson MD [STAFF PHYSICIAN] - 3-5 Days if not improving
[2017-11-04] MEDS: HYDROcodone Bitartrate/Apap 5/325 Tablet PO (08:34)
[2017-11-04 08:35] VITALS: BP 121/90; PULSE 87; RESP 16; TEMP 36.6; O2SAT 99
== END 2017-11-04 08:36 | disposition home or self-care (01) ==
PROVIDERS: Emergency Provider Emergency Medicine; Family Provider Family Medicine; PCP Family Medicine
DX: N20.0 Calculus of kidney (principal); Z87.442 Personal history of urinary calculi; I10 Essential (primary) hypertension; E78.00 Pure hypercholesterolemia, unspecified; Z85.118 Personal history of other malignant neoplasm of bronchus and lung; Z72.0 Tobacco use; Z79.899 Other long term (current) drug therapy
CPT/HCPCS: 74176; 80048; 81001; 85025; 96361; 96374; 96375; 99283; J7030; A4216; J2405

== ENCOUNTER 2017-11-23 19:29 | Emergency (ER) | payer SELFPAY ==
[2017-11-23 19:30] VITALS: BP 120/94; PULSE 90; RESP 22; TEMP 36.6; O2SAT 97; BMI 30.2
--- NOTE | 2017-11-23 20:04 | ED.RN ---
PT HAS REQUESTED PAIN MEDICATIONS MULTIPLE TIMES. PT INFORMED THE DR MUST SEE HIM FIRST. PT INFORMED HIS CHART IS NEXT IN LINE LONG A CRITICAL PATIENT DOES NOT PRESENT
--- NOTE | 2017-11-23 20:05 | ED.RN ---
PT GETTING INCREASINGLY AGGITATED AND REQUESTING PAIN MEDICATION
--- NOTE | 2017-11-23 20:40 | RAD_ITS ---
STUDY: X-RAY - LEFT HAND REASON FOR EXAM: Male, 52 years old. Pain and laceration in the area of the fifth metacarpal after falling into a window. TECHNIQUE: 3 view(s) of the hand. COMPARISON: None. FINDINGS: Normal radiocarpal articulation. Normal distal radioulnar joint. Normal visualized carpal bones. Normal carpal articulations Normal carpometacarpal articulation of the thumb. Normal second through fifth carpometacarpal joints. Mild deformity of the proximal diaphysis of the fifth metacarpal consistent with a prior healed fracture. Negative for acute metacarpal fracture. Normal metacarpophalangeal joint of the thumb. Normal interphalangeal joint of the thumb. Normal proximal and distal phalanges of the thumb. Normal metacarpophalangeal joints of the second through fifth fingers. Normal proximal and distal interphalangeal joints of the second through fifth fingers. Normal phalanges of the second through fifth fingers. Soft tissue swelling of the medial hand without foreign body. RAD/Hand Min 3 Views IMPRESSION: Soft tissue injury without foreign body or underlying acute fracture deformity. Prior healed fracture of the fifth metacarpal. Electronically Signed: Kitty Jean Baptiste MD at 21:02 EDT , Service support ,
--- NOTE | 2017-11-23 21:28 | ED.DCSUM_ITS ---
- ER Visit Summary Date of Service: 11/23/17 Chief Complaint: Left palm laceration History of Present Illness: The patient is a 52 M dominant male. History of alcohol abuse. Patient was sitting on a rock and was going to fall and he grabbed to catch himself and cut his left palm on aluminum metal strip. This occurred within the last 1-2 hours. Tetanus up-to-date. He does complain of some numbness to his left small finger. Physical Examination: Male. No acute distress. Vital signs stable afebrile. H EENT exam unremarkable. Neck nontender. Lungs clear to auscultation. Heart regular rhythm no murmur. Chest wall nontender. Abdomen soft nontender normal bowel sounds no peritoneal signs. Pelvic girdle intact. He is moving all 4 extremities there are no gross bony deformities. His left palm has an irregular shaped 5+ centimeter laceration on the ulnar side of the mid left palm. He can flex and extend all digits of his hand. 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 He does complain of decreased touch sensation to the distal half of his left small finger. He has normal cap refill. I opened up the laceration and saw that involve skin and subcu tissue. I did not see any obvious tendon/bone/joint or any obvious nerve involvement. There is no pulsatile bleeding. Test Results: X-ray of his left hand showed an old fracture of the fifth or small metacarpal but no acute injury. No foreign body. Read both by myself and the radiologist. Emergency Department Course and Treatment: Procedure note: Local anesthetic to the left palm laceration with lidocaine. Cleaned with Shur-Clens. Copiously irrigated with saline. Explored. And closed using 9 simple interrupted 4-0 Ethilon sutures. Proper hemostasis and wound closure was obtained. Patient tolerated procedure well. Post laceration repair he had full flexion-extension all digits of the hand. He had continued numbness of the distal half of the left small finger. Treatment Plan: Wound care. Ice and elevate. Tylenol Motrin for pain. Suture removal in 10 days. Return if any signs of infection. Disposition: Discharge. Impression: Acute left palm laceration of 5 cm with ER repair Possible nerve injury with left small finger numbness This note was generated with [employer] dictation software. It may contain incorrect words, spelling, and punctuation that were not noted in review of the chart prior to signing ED Disposition - Plan for ED Patient: Disposition: Home or Assisted Living Chief Complaint: Laceration Instructions: ED Laceration Hand Prescriptions: Hydrocodone/Acetaminophen [[place] 7.5-325 Tablet] 1 ea PO Q4H PRN PRN #14 tab PRN Reason: Pain Referrals: Edison Shannon MD [Primary Care Provider] - 10 Day for suture removal Additional Instructions: Ice and elevate left hand. Tylenol and Motrin for pain. For more severe pain use the [place] that also has Tylenol in it. She is out in 10 days. Watch for any signs of infection.
== END 2017-11-23 21:36 | disposition home or self-care (01) ==
PROVIDERS: Emergency Provider Emergency Medicine; Family Provider Family Medicine; PCP Family Medicine
DX: S61.412A Laceration without foreign body of left hand, initial encounter (principal); S64.497A Injury of digital nerve of left little finger, initial encounter; R20.0 Anesthesia of skin; W26.8XXA Contact with other sharp object(s), not elsewhere classified, initial encounter; Y93.9 Activity, unspecified; Y92.9 Unspecified place or not applicable; Z87.442 Personal history of urinary calculi; Z79.82 Long term (current) use of aspirin; Z79.899 Other long term (current) drug therapy; Z72.0 Tobacco use
CPT/HCPCS: 12002; 73130; 99284

== ENCOUNTER 2017-12-09 09:46 | Emergency (ER) | payer SELFPAY ==
[2017-12-09 09:48] VITALS: BP 149/78; PULSE 95; RESP 17; TEMP 36.4; O2SAT 96; BMI 27.3
--- NOTE | 2017-12-09 09:56 | ED.VISSUMM ---
- ER Visit Summary Date of Service: 12/09/17 Chief Complaint: Suture removal History of Present Illness: The patient is a 52 M [id number] male sustained an injury to his left hand over the hyperthenar eminence on November 23, 2017. He presents today for suture removal. He denies discharge or drainage. He denies redness. He complains of pain radiates to his elbow. He denies any paresthesia, anesthesia motor weakness. Physical Examination: Vital signs noted and remarkable for blood pressure 149/78. The laceration is healed. Stitches are in place. There is no erythema, warmth, fluctuance, induration or lymphangitis. There is no epitrochlear lymphadenopathy. Test Results: None Emergency Department Course and Treatment: Removal of stitches by nursing staff and appropriate home-going instructions Treatment Plan: Post laceration wound instructions Disposition: Discharged home Impression: 1. Reevaluation of wound, laceration left hand 2. Suture removal This note was generated with [employer] dictation software. It may contain incorrect words, spelling, and punctuation that were not noted in review of the chart prior to signing ED Disposition - Plan for ED Patient: Disposition: Home or Assisted Living Chief Complaint: Suture Remv Instructions: ED Wound Check Sutr Remove No Infec Referrals: Edison Shannon MD [Primary Care Provider] - As Needed
--- NOTE | 2017-12-09 09:59 | ED.DCSUM_ITS ---
- ER Visit Summary Date of Service: 12/09/17 Chief Complaint: Suture removal History of Present Illness: The patient is a 52 M [id number] male sustained an injury to his left hand over the hyperthenar eminence on November 23, 2017. He presents today for suture removal. He denies discharge or drainage. He denies redness. He complains of pain radiates to his elbow. He denies any paresthesia, anesthesia motor weakness. Physical Examination: Vital signs noted and remarkable for blood pressure 149/78. The laceration is healed. Stitches are in place. There is no erythema, warmth, fluctuance, induration or lymphangitis. There is no epitrochlear lymphadenopathy. Test Results: None Emergency Department Course and Treatment: Removal of stitches by nursing staff and appropriate home-going instructions Treatment Plan: Post laceration wound instructions Disposition: Discharged home Impression: 1. Reevaluation of wound, laceration left hand 2. Suture removal This note was generated with [employer] dictation software. It may contain incorrect words, spelling, and punctuation that were not noted in review of the chart prior to signing ED Disposition - Plan for ED Patient: Disposition: Home or Assisted Living Chief Complaint: Suture Remv Instructions: ED Wound Check Sutr Remove No Infec Referrals: Edison Shannon MD [Primary Care Provider] - As Needed
== END 2017-12-09 10:04 | disposition home or self-care (01) ==
PROVIDERS: Emergency Provider Emergency Medicine; Family Provider Family Medicine; PCP Family Medicine
DX: S61.412D Laceration without foreign body of left hand, subsequent encounter (principal); Z48.02 Encounter for removal of sutures; Z72.0 Tobacco use; X58.XXXD Exposure to other specified factors, subsequent encounter
CPT/HCPCS: 99283

== ENCOUNTER 2017-12-30 19:13 | Inpatient (IN) | payer SELFPAY ==
[2017-12-30 19:16] VITALS: BP 126/61; PULSE 116; RESP 18; TEMP 36.6; O2SAT 97; BMI 27.1
[2017-12-30 19:21] VITALS: PULSE 117; RESP 18; O2SAT 97
--- NOTE | 2017-12-30 19:39 | EKG12_ITS ---
Test Reason : WITHDRAWL Blood Pressure : / mmHG Vent. Rate : 114 BPM Atrial Rate : 114 BPM P-R Int : 150 ms QRS Dur : 100 ms QT Int : 346 ms P-R-T Axes : 083 087 034 degrees QTc Int : 476 ms Sinus tachycardia Incomplete right bundle branch block Possible Lateral infarct , age undetermined Cannot rule out Inferior infarct , age undetermined Abnormal ECG Confirmed by TOBIN MAKI, ROBERT ([id number]), assistant production editor YAZMIN COREY ([id number] on 01/03/2018 3:39:35 PM Referred By: DR CABAN Confirmed By:ROBERT RUDD MD
[2017-12-30] MEDS: 0.9% Normal Saline 1,000 ML 1000 ML IV (20:04)
[2017-12-30] MEDS: LORazepam 2 MG/ML Syringe 0.5 MG IV (20:04)
[2017-12-30 20:13] LABS: Absolute Lymphocyte Count 3.05 X10^3/ul (0.83-4.51); Absolute Neutrophil Count 3.5 X10^3/uL (2.0-7.7); Basophil# 0.08 X10^3/uL; Basophil% 1.1 % (0-1); Eosinophil# 0.12 X10^3/uL; Eosinophils% 1.7 % (0-5); Hematocrit 47.3 % (40-54); Hemoglobin 16.9 g/dl (13.0-16.5); Lymphocyte # 3.05 X10^3/ul (4.0); Lymphocyte % 43.3 % (19-41); Mean Corp Hgb Conc 35.7 g/gl (32-36); Mean Corpuscular Volume 92.4 fL (80-94); Mean Platelet Vol. 9.2 fl (6.2-12.0); Monocyte# 0.31 X10^3/uL; Monocyte% 4.4 % (0-10); Neutrophil # 3.48 X10^3/uL (2.7-7.7); Neutrophil % 49.4 % (47-70); Platelet Count 172 K/mm3 (150-450); RBC Distribution Width CV 14.4 % (11.6-14.6); RBC Distribution Width SD 48.6 fl (35.1-43.9); Red Blood Count 5.12 M/mm3 (4.6-6.2); White Blood Count 7.1 K/mm3 (4.4-11.0)
[2017-12-30 20:14] VITALS: BP 143/105; PULSE 116; RESP 20
[2017-12-30 20:15] LABS: POSITIVE COUNT NO; POSITIVE DIFFERENTIAL NO; POSITIVE MORPHOLOGY NO
[2017-12-30 20:31] LABS: AST(SGOT) 59 U/L (15-37); Alanine Aminotransfer ALT/SGPT 72 U/L (16-61); Albumin, Serum 3.8 g/dL (3.2-5.0); Alkaline Phosphatase 86 U/L (45-117); Anion Gap 12 (5-15); BUN 3 mg/dL (7-18); BUN/Creat Ratio 4.1 RATIO (10-20); Calcium,Total 8.3 mg/dL (8.5-10.1); Chloride 103 mmol/L (98-107); Creatinine, Serum 0.73 mg/dL (0.70-1.30); EST Glomerular Filtration Rate 120 mL/min (>60); Est Glom Filt Rate - Afr Amer 145 mL/min (>60); Estimated Creatinine Clearance 119.72 ml/min; Globulin 3.9 g/dL (2.2-4.2); Glucose 80 mg/dL (74-106); Lipase 464 U/L (73-393); Potassium 3.7 mmol/L (3.5-5.1); Protein, Total 7.7 g/dL (6.4-8.2); Sodium Level 138 mmol/L (136-145)
[2017-12-30 21:16] VITALS: BP 150/88; PULSE 102; RESP 16; O2SAT 97
[2017-12-30] MEDS: LORazepam 2 MG/ML Syringe 1 MG IV ×2 (21:25→23:58)
--- NOTE | 2017-12-30 21:25 | ED.VISSUMM ---
- ER Visit Summary Date of Service: 12/30/17 Chief Complaint: Alcohol withdrawal History of Present Illness: The patient is a 52 M who presents with alcohol withdrawal symptoms that began today. Patient states he normally drinks a case of beer per day. Over the last week however the patient has only been drinking enough to keep him from having withdrawal symptoms. Patient states his last drink was approximately 22 hours ago. states patient has not eaten for the past 8 days. Patient states he has had a seizure. Patient also states she has been having constant tremors. Patient admits to having vomiting and diarrhea. Patient denies any fevers. Patient also admits to auditory hallucinations. Patient states the auditory hallucinations are his father's voice and his sister's voice. Patient denies any suicidal or homicidal ideations. Physical Examination: Vital signs are stable except for tachycardia of 117. Patient is afebrile. Patient is in no acute distress. Oral mucosa is pink and moist. Neck is supple. Trachea is midline. There is no JVD noted. Heart was regular and tachycardic. Lungs are clear and equal bilateral. Abdomen is soft and nontender. Cranial nerves II through XII are intact. Strength is 5/5 bilateral in the upper and lower extremities. There are no sensory deficits noted. Patient did have an anxious mood. Patient admitted to auditory hallucinations but denies any visual hallucinations. Patient denies any suicidal or homicidal ideations. Test Results: EKG showed sinus tachycardia with a rate of 114. There are no acute ST or T wave changes. There is an incomplete right bundle branch block pattern noted. CBC showed hemoglobin of 16.9. Comprehensive metabolic profile showed a BUN of 3, ALT of 72, AST of 59, and lipase was slightly elevated at 464. Troponin was normal at <0.015. Emergency Department Course and Treatment: Patient was given IV fluids. Patient was also given multivitamin, thiamine, and folate. Patient was also given oral phenobarbital and Ativan. Patient was given a second dose of Ativan. After providing urine specimen, patient was able to walk back to his room but then had a generalized seizure that lasted a few seconds. When the patient stopped seizing, he became awake alert and oriented x4. Case was discussed with Dr. Davis. He will admit the patient to the hospital. Patient and his understood and were agreeable with the plan. All questions were answered. Disposition: Admit to hospital Impression: Alcohol withdrawal This note was generated with [employer] dictation software. It may contain incorrect words, spelling, and punctuation that were not noted in review of the chart prior to signing ED Disposition - Plan for ED Patient: Disposition: Acute Care Hospital [facility] Chief Complaint: Substance Abuse Diagnosis: Alcohol withdrawal Referrals: Edison Shannon MD [Primary Care Provider] -
[2017-12-30 22:25] VITALS: BP 164/98; PULSE 63; RESP 14; O2SAT 95
[2017-12-30 23:57] LABS: Squamous Epithelial Cells - UA 0 SEEN /hpf (0-5)
[2017-12-30 23:59] VITALS: BP 167/102; PULSE 111; RESP 15; O2SAT 96
[2017-12-31] VITALS (34 sets, daily range): BP systolic 126–167; BP diastolic 87–113; PULSE 79–123; RESP 14–24; TEMP 36.3–37.3; O2SAT 90–97; BMI 29.3
[2017-12-31] LABS: Color, Urine Yellow (Yellow); Glucose, Dipstick Normal (Normal); Ketone-Dipstick Negative (Negative); Leukocyte Esterase-Dipstick 25 /ul (Negative); Nitrite-Dipstick Negative (Negative); Occult Blood-Urine 10 /ul (Negative); Protein-Dipstick 15 mg/dl (Negative); Urine Bilirubin Dipstick Negative (Negative); Urine Clarity Clear (Clear); Urine Urobilinogen Normal (Normal)
[2017-12-31 00:08] LABS: Bacteria RARE /hpf (None Seen); Mucous, Urine 2+ /hpf (<or=2+); White Blood Cells 0-5 SEEN /hpf (0-5)
[2017-12-31 00:09] LABS: Red Blood Cells-Urine 0-5 SEEN /hpf (0-5)
--- NOTE | 2017-12-31 00:32 | ED.RN ---
pt was able to ambulate to room without assistance. no tremors while ambulating. upon re-entering the bed he began to shack. roughly 5 min after returning to bed patient had a seizure. pt was found shacking. once patient was placed into recover position he became immediately awake. pt was able to tell me who the financial institution vice president was, where his is, and who was with him. pt did not lose control of his bowel or bladder during event. pt given addition medication to prevent any further seizure [place]. [place] [id number]
--- NOTE | 2017-12-31 00:35 | PCM.HP.STD ---
Problem List (1) Alcohol withdrawal seizure Status: Acute (2) Upper GI bleed Status: Acute (3) Acute pancreatitis Status: Acute History of Present Illness Date of Admission: 12/31/17 Chief Complaint: Alcohol withdrawal symptoms and GI bleed The patient is a 52 year old M with history of chronic alcoholism with dependence, alcohol withdrawal seizure, drinks 1 case of beer and bottle of wine every day; last drink about 22 hours ago was brought into ER for alcohol withdrawal symptoms including tremors, nausea, vomiting, hematemesis and melena. Patient also had 3 times seizure before coming to ER one time seizure in ER. He describes grand mal seizure. Patient said he had 2 times vomiting blood yesterday and one time today before coming to ER. Patient also had about 3 times melena, large volume black stool. Complain of diffuse abdominal pain. He also having auditory hallucinations. In ED, initial vital shows mild tachycardia 102/min, blood pressure 150/88. Basic labs shows hematocrit 47.3 probably secondary to hemoconcentration, elevated transaminases, lipase 464. UA shows rare bacteria, WBCs 0-5 cells per hpf. LE 25. Patient denies lower urinary tract symptoms. No fever or chills. ER physician discussed with Dr. Joyce he agreed to see the patient GI bleed Past Medical History Past Medical History (Chronic Problems): Chronic Problems Alcohol withdrawal delirium, acute, hyperactive (Chronic) DM type 2 (diabetes mellitus, type 2) (Chronic) Bipolar 1 disorder (Chronic) History of kidney stones (Chronic) Continuous chronic alcoholism (Chronic) up to 1 gallon vodka daily Tobacco use (Chronic) Psychiatric pseudoseizure (Chronic) Delirium tremens (Chronic) Homelessness (Chronic) Benign essential hypertension (Chronic) Allergies amoxicillin [Amoxicillin] Allergy (Verified 12/30/17 19:20) Anaphylaxis Penicillins Allergy (Verified 12/30/17 19:20) Anaphylaxis Home Medications: Ambulatory Orders Medication Instructions Recorded NK 12/30/17 Surgical History: no surgical history Smoking Status: Current every day smoker - *Family History Maternal History Items: No pertinent history Paternal History Items: No pertinent history Sibling History Items: No pertinent history Review of Systems Constitutional: Reports: Malaise, Weakness. Denies: Chills, Fever, Weight Change HEENT: Denies: Head Aches, Sinus Congestion, Sinus Drainage Cardiovascular: Denies: Chest Pain, Palpitations Respiratory: Denies: Cough, Shortness of breath at rest, Sputum production Gastrointestinal: Reports: Abdominal Pain, Diarrhea, Hematemesis, Nausea, Melena, Vomiting Genitourinary: Denies: Dysuria Musculoskeletal: Denies: Joint Pain, Joint Tenderness Skin: Denies: Rash, Wounds Neurological: Reports: Balance problems, Incoordination, Tremor, Seizures. Denies: Focal weakness, Numbness, Tingling Psychiatric: Reports: Anxiety, Depression. Denies: Homicidal Ideations, Suicidal Ideations Hematologic/ Lymphatic: Denies: Easy Bruising, Easy Bleeding VTE Information - Inpt Only VTE Present on Admission: No VTE Mechan Device Prophylaxis: SCD's VTE Pharm Prophylaxis ordered?: No Reason prophylaxis not ordered:: Medical Contraindication Patient Problems: Active and Suspected Problems Alcohol withdrawal (Acute) Alcohol withdrawal seizure (Acute) Upper GI bleed (Acute) Acute pancreatitis (Acute) - Physical Exam General: Oriented x3, Cooperative, Lethargic HEENT: Atraumatic, PERRLA, EOMI, Normocephalic Neck: Supple, No JVD, Negative Carotid Bruits Lungs: Clear to auscultation, Normal air movement Cardiovascular: Regular rate, Regular Rhythm, Normal S1, Normal S2, No murmurs Abdomen: Bowel Sounds Present, Soft, No Hepato-splenomegaly, Tender - Mild diffuse tenderness present, - - No ascites Extremities: No edema, Capillary Refill Less than 3 Seconds Skin: No rashes, No breakdown Musculoskeletal: No Tenderness to Palpation of Joints or Extremities, Arthritic Changes, Muscle Wasting Neurological: Cranial nerves II-XII grossly intact, Deep Tendon Reflexes 2+/4 and Symmetrical, - - Generalized tremors present Psych/Mental Status: Agitated, Anxious, Restless Vital Signs Temp Pulse Resp BP Pulse Ox 97.8 F 102 H 16 154/100 H 94 12/30/17 19:16 12/31/17 00:29 12/31/17 00:29 12/31/17 00:29 12/31/17 00:29 Oxygen Flow Rate (L/min) 2 Oxygen Delivery Method Nasal Cannula Weight: 184 lb Body Mass Index (BMI) 27.1 Finger Stick Blood Glucose 98 Laboratory Tests Past 24 Hrs 12/30/17 12/30/17 12/30/17 19:54 19:54 23:45 WBC 7.1 RBC 5.12 Hgb 16.9 H Hct 47.3 MCV 92.4 MCH 33.0 H MCHC 35.7 RDW 14.4 RDW Differential 48.6 H Plt Count 172 MPV 9.2 Immature Gran % (Auto) 0.100 Neut % (Auto) 49.4 Lymph % (Auto) 43.3 H [place] % (Auto) 4.4 Eos % (Auto) 1.7 Baso % (Auto) 1.1 H Absolute Neuts (auto) 3.5 Absolute Lymphs (auto) 3.05 Total Counted Not Reportable Sodium 138 Potassium 3.7 Chloride 103 Carbon Dioxide 23.0 Anion Gap 12 BUN 3 L Creatinine 0.73 Estim Creat Clear Calc 119.72 Est GFR (MDRD) Af Amer 145 Est GFR (MDRD) Non-Af 120 BUN/Creatinine Ratio 4.1 L Glucose 80 Calcium 8.3 L Total Bilirubin 0.60 AST 59 H ALT 72 H Alkaline Phosphatase 86 Troponin I < 0.015 Total Protein 7.7 Albumin 3.8 Globulin 3.9 Albumin/Globulin Ratio 1.0 Lipase 464 H Urine Color Yellow Urine Clarity Clear Urine pH 6.0 Ur Specific [place] 1.020 Urine Protein 15 H Urine Glucose (UA) Normal Urine Ketones Negative Urine Occult Blood 10 H Urine Nitrite Negative Urine Bilirubin Negative Urine Urobilinogen Normal Ur Leukocyte Esterase 25 H Urine RBC 0-5 SEEN Urine WBC 0-5 SEEN Ur Squamous Epith Cells 0 SEEN Urine Bacteria RARE Urine Mucus 2+ Assessment/Plan All Active Problems Alcohol withdrawal (Acute) Atypical chest pain (Acute) Unstable angina (Acute) Alcohol withdrawal seizure (Acute) Upper GI bleed (Acute) Acute pancreatitis (Acute) The patient is a 52 year old M with history of chronic alcoholism with dependence, alcohol withdrawal seizure, drinks 1 case of beer and bottle of wine every day; last drink about 22 hours ago was brought into ER for alcohol withdrawal symptoms including tremors, nausea, vomiting, hematemesis and melena. Patient also had 3 times seizure before coming to ER one time seizure in ER. He describes grand mal seizure. Patient said he had 2 times vomiting blood yesterday and one time today before coming to ER. Patient also had about 3 times melena, large volume black stool. Complain of diffuse abdominal pain. He also having auditory hallucinations. In ED, initial vital shows mild tachycardia 102/min, blood pressure 150/88. Basic labs shows hematocrit 47.3 probably secondary to hemoconcentration, elevated transaminases, lipase 464. UA shows rare bacteria, WBCs 0-5 cells per hpf. LE 25. Patient denies lower urinary tract symptoms. No fever or chills. ER physician discussed with Dr. Pruitt he agreed to see the patient GI bleed 1. Severe alcohol withdrawal symptoms: The patient is being admitted in ICU with history of upper GI bleed and pancreatitis and risk for possible variceal bleed. Started on IV lorazepam and Librium. Medical stabilization and CIWA score. Monitor intake and output. On IV thiamine and folic acid. Vigorous IV fluid rehydration with 1 L normal saline bolus and then Ringer lactate 125 ml per hour. 2. Upper GI bleed with concern of esophageal varices: Started on IV Protonix 40 mg every 12 hourly. If there is further bleeding, will need to be started on octreotide drip. Monitor H&H every 6 hourly. GI consult as mentioned above. 3. Acute alcoholic pancreatitis: We will keep the patient n.p.o. except medications. Monitor LFT. Monitor intake and output. Right upper quadrant sonogram ordered. 4. Alcohol withdrawal seizures: Ativan 2 mg IV every 2 hourly as needed for seizures. Seizure and fall precaution. 5. Diabetes mellitus type 2: Accu-Chek's every 6 hourly and cover with NovoLog sliding scale. 6. Other chronic comorbidities include hypertension, chronic smoker/nicotine dependence, bipolar disorder: Home medication reconciliation done. category development manager consult. DVT prophylaxis on bilateral SCDs. Pharmacological prophylaxis contraindicated. Code Visit Inpatient E&M: 31180 Init Hosp L3
[2017-12-31 01:16] LABS: Bedside Glucose 81 mg/dL (70-110)
[2017-12-31] MEDS: LORazepam 2 MG/ML Syringe 1 MG IV ×2 (01:26→11:54)
[2017-12-31] MEDS: Ondansetron 4 MG/2 ML Vial IV (01:26)
[2017-12-31] MEDS: 0.9% Normal Saline 1,000 ML 999 ML IV (01:27)
[2017-12-31] MEDS: Lactated Ringers 1,000 ML 125 ML IV (01:27)
[2017-12-31 02:04] LABS: Prothrombin Time (Protime)PT. 12.7 SECONDS (11.7-14.9)
[2017-12-31] MEDS: Methocarbamol 750 MG Tablet PO (02:26)
[2017-12-31] MEDS: 0.9% NaCl Peripheral Flush Adult/Peds IV (02:27)
[2017-12-31 02:31] LABS: Hematocrit 42.7 % (40-54); Hemoglobin 14.9 g/dl (13.0-16.5)
[2017-12-31 03:00] LABS: AST(SGOT) 46 U/L (15-37); Alanine Aminotransfer ALT/SGPT 55 U/L (16-61); Albumin, Serum 3.1 g/dL (3.2-5.0); Alkaline Phosphatase 74 U/L (45-117); Anion Gap 9 (5-15); BUN 3 mg/dL (7-18); BUN/Creat Ratio 4.6 RATIO (10-20); Calcium,Total 7.3 mg/dL (8.5-10.1); Chloride 109 mmol/L (98-107); Creatinine, Serum 0.65 mg/dL (0.70-1.30); EST Glomerular Filtration Rate 138 mL/min (>60); Est Glom Filt Rate - Afr Amer 167 mL/min (>60); Estimated Creatinine Clearance 134.45 ml/min; Globulin 3.2 g/dL (2.2-4.2); Glucose 75 mg/dL (74-106); Magnesium 1.6 mg/dL (1.6-2.6); Phosphorus 2.5 mg/dL (2.5-4.9); Potassium 3.5 mmol/L (3.5-5.1); Protein, Total 6.3 g/dL (6.4-8.2); Sodium Level 140 mmol/L (136-145)
[2017-12-31] MEDS: chlordiazePOXIDE 25 MG Capsule PO ×3 (05:52→18:02)
--- NOTE | 2017-12-31 05:55 | US_ITS ---
STUDY: ABDOMINAL ULTRASOUND - RIGHT UPPER QUADRANT REASON FOR VISIT: Male, 52 years old. Abdominal pain, abnormal labs TECHNIQUE: Ultrasound evaluation of the right upper quadrant was performed with real-time and static jarvis-scale imaging. TECHNICAL QUALITY: Adequate. COMPARISON: None. FINDINGS: Liver: The liver measures 19.3 cm. There is fatty echogenicity of the liver. The bile ducts are within normal limits. There is hepatic color flow. The direction of portal flow is hepatopetal. There is no demonstrated mass lesion. Trace perihepatic fluid. Gallbladder: Normal distended gallbladder. The gallbladder wall measures 1.2 mm. There is a negative sonographic Teixeira's sign. There is no pericholecystic fluid. There are no gallstones. Common Bile Duct (C.B.D.): The common bile duct measures 5.4 mm. Pancreas: Limited visualization of the pancreas. Right Kidney: Normal size of the right kidney. The right kidney measures 10.7 x 6.3 x 5.2 cm. Normal renal cortex. The right cortex measures 2.5 cm. There is no demonstrated renal mass or cyst. There is no right hydronephrosis. US/Abdomen Limited IMPRESSION: Hepatomegaly with fatty changes. Trace perihepatic fluid. Electronically Signed: Porter Escobar DO at 15:50 EST Tel [phone], Service support ,
[2017-12-31 06:15] LABS: Bedside Glucose 73 mg/dL (70-110)
[2017-12-31] MEDS: Dextrose 5%/0.9% NaCl 1,000 ML 100 ML IV ×2 (06:15→17:18)
[2017-12-31 06:17] LABS: Hematocrit 40.6 % (40-54); Hemoglobin 14.4 g/dl (13.0-16.5); Mean Corp Hgb Conc 35.5 g/gl (32-36); Mean Corpuscular Hgb 32.8 pg (27.0-32.0); Mean Corpuscular Volume 92.5 fL (80-94); Mean Platelet Vol. 9.1 fl (6.2-12.0); Platelet Count 143 K/mm3 (150-450); RBC Distribution Width CV 14.3 % (11.6-14.6); RBC Distribution Width SD 47.5 fl (35.1-43.9); Red Blood Count 4.39 M/mm3 (4.6-6.2); White Blood Count 4.4 K/mm3 (4.4-11.0)
[2017-12-31 06:19] LABS: Scan Indicated on CBC? Y/N NO
--- NOTE | 2017-12-31 07:29 | PN_ITS ---
Progress Note Patient is a 52-year-old gentleman with a history of chronic alcohol dependence with multiple admissions for alcohol withdrawal presented with significant tremors, self-reported seizures as well as melenic stools 1. Acute alcohol withdrawal: Patient has been admitted to the intensive care unit where he is undergoing medical stabilization using Librium patient was also placed on supplemental multivitamin, folic acid as well as thiamine. 2. Melenic stools do suspect upper GI bleed possibly from gastritis patient is on Protonix consultation placed to Dr. Joyce for possible endoscopic evaluation prior to patient being discharged 3. Diabetes mellitus type II: Controlled patient's oral hypoglycemics held. Placed on Accu-Cheks a.c. and at bedtime and covered with sliding scale insulin 4. Hypertension-blood pressure controlled, home medications continued with dose adjustment as needed 5. Alcohol withdrawal seizures patient was started on Keppra 6. Tobacco dependence counseled on cessation, offered nicotine patch for tobacco cravings 7. DVT prophylaxis; held of systemic anticoagulation in view of patient melena Active Medications Acetaminophen (Tylenol) 500 mg PO Q4H PRN PRN PRN Reason: Temp > 100.4 F Chlordiazepoxide (Librium) 50 mg PO Q6H [facility]; Taper Stop: 01/03/18 02:29 Last Admin: 12/31/17 09:17 Dose: 50 mg Dextrose (D50w Syringe) 0 gm IV X1 PRN; Protocol PRN Reason: Hypoglycemia Dicyclomine HCl (Bentyl) 20 mg PO Q6H PRN PRN PRN Reason: abdominal discomfort Folic Acid (Folic Acid) 1 mg PO DAILYCM [facility] Last Admin: 12/31/17 09:16 Dose: 1 mg Glucagon () 1 mg IM .X1 PRN PRN Reason: Hypoglycemia Hydroxyzine Pamoate (Vistaril Pamoate Capsule) 25 mg PO Q6H PRN PRN PRN Reason: Mild Anxiety (score 1/3) Pantoprazole Sodium 40 mg/ (Sodium Chloride) 110 mls @ 330 mls/hr IV Q12 [facility] Last Admin: 12/31/17 02:26 Dose: 330 mls/hr Thiamine HCl 200 mg/ Sodium (Chloride) 52 mls @ 200 mls/hr IV DAILY [facility] Last Admin: 12/31/17 09:16 Dose: 200 mls/hr Sodium Chloride () 250 mls @ 15 mls/hr IV .[id number] PRN PRN Reason: SALINE FLUSH Dextrose/Sodium Chloride (Dextrose 5%/0.9% Nacl) 1,000 mls @ 100 mls/hr IV .Q10H [facility] Last Admin: 12/31/17 06:15 Dose: 100 mls/hr Insulin Human Lispro (Humalog Kwikpen (Bkc)) 0 unit SQ Q6 [facility]; Protocol Last Admin: 12/31/17 06:55 Dose: Not Given Loperamide HCl (Imodium) 2 - 4 mg PO UD PRN PRN Reason: LOOSE STOOLS Lorazepam (Ativan) 2 mg IV Q2H PRN PRN PRN Reason: Seizure Lorazepam (Ativan) 1 mg IV Q4H PRN PRN PRN Reason: Severe Anxiety Last Admin: 12/31/17 01:26 Dose: 1 mg Methocarbamol (Methocarbamol) 750 mg PO Q6H PRN PRN PRN Reason: Muscle Aches Last Admin: 12/31/17 02:26 Dose: 750 mg Nicotine (Nicoderm Cq (Pbkc)) 21 mg TRANSDERM. DAILY [facility] Last Admin: 12/31/17 09:16 Dose: 21 mg Ondansetron HCl (Zofran) 4 mg IV Q6H PRN PRN PRN Reason: NAUSEA Last Admin: 12/31/17 01:26 Dose: 4 mg Promethazine HCl (Phenergan) 12.5 mg IV Q6H PRN PRN PRN Reason: NAUSEA/VOMITING Sodium Chloride () 5 - 30 ml IV UD PRN PRN Reason: SALINE FLUSH Last Admin: 12/31/17 02:27 Dose: 10 ml Trazodone HCl (Desyrel) 50 mg PO QHS [facility]
--- NOTE | 2017-12-31 08:52 | PCM.CONS.GEN ---
Reason for Consult Date of Consultation: 12/31/17 Reason for Consultation: GI bleed History of Present Illness: The patient is a 52 year old M with a complaint of GI bleeding. The patient presented emergency department with complaints of alcoholic withdrawal seizures. In the course of his evaluation he states he's had vomiting blood for the past 2 weeks along with black tarry stools. The patient notes a long-standing history of chronic alcoholism. He notes issues with alcohol withdrawal in the past. He states he has seizures. He feels he is seizing currently. I understand he is currently homeless. He drinks, he uses tobacco. When asked how much alcohol he consumes he states just enough to prevent him from going into withdrawal but won't give me an exact number. Admission history notes up to 1 gallon of vodka daily. The patient also has a history of type 2 diabetes, bipolar disorder, psychiatric pseudoseizures and hypertension. patient's current hemoglobin is 14.4 with hematocrit of 40. His white blood cell count was within the normal range. His MCH is elevated with a normal MCV consistent with alcohol abuse but not consistent with iron deficiency.his BUN and creatinine are within normal range. His total protein and albumin are both somewhat low. his bilirubin is within the normal range. of interest-a prior toxicology screen from March was positive for barbiturates, methamphetamine, benzodiazepines, and cannabinoids. He had told me he hasn't had a drink for 822 hours. His admitting alcohol level was 168 mcg/dL. he denies having had previous upper or lower endoscopy. when I presented in the intensive care unit to examine the patient. He was sleeping comfortably without any signs of seizing area after waking him up and talking with the patient, he started having what seem to be more directed bilateral arm tremor and without facial twitches or body tremoring or lower extremity tremoring which he described as his seizure activity Past Medical History Past Medical History (Chronic Problems): Chronic Problems Alcohol withdrawal delirium, acute, hyperactive (Chronic) DM type 2 (diabetes mellitus, type 2) (Chronic) Bipolar 1 disorder (Chronic) History of kidney stones (Chronic) Continuous chronic alcoholism (Chronic) up to 1 gallon vodka daily Tobacco use (Chronic) Psychiatric pseudoseizure (Chronic) Delirium tremens (Chronic) Homelessness (Chronic) Benign essential hypertension (Chronic) Allergies amoxicillin [Amoxicillin] Allergy (Verified 12/30/17 19:20) Anaphylaxis Penicillins Allergy (Verified 12/30/17 19:20) Anaphylaxis Home Medications: Ambulatory Orders Medication Instructions Recorded NK 12/30/17 Surgical History: no surgical history Smoking Status: Current every day smoker - *Family History Maternal History Items: No pertinent history Paternal History Items: No pertinent history Sibling History Items: No pertinent history Review of Systems Unable to obtain accurate/complete ROS d/t: generally positive review of systems when discussing any issues Patient Problems: Active and Suspected Problems Alcohol withdrawal (Acute) Alcohol withdrawal seizure (Acute) Upper GI bleed (Acute) Acute pancreatitis (Acute) - Physical Exam General: Alert, Oriented x3, Cooperative HEENT: Atraumatic, PERRLA, EOMI, Normocephalic Lungs: Diminished Cardiovascular: Regular rate, Regular Rhythm Abdomen: Bowel Sounds Present, Soft, Non Tender - with palpation with the stethoscope-complaint of mild diffuse tenderness with palpation with the hand. No obvious signs of fluid shifting Vital Signs Temp Pulse Resp BP Pulse Ox 99.1 F 101 H 21 H 163/88 H 94 12/31/17 08:00 12/31/17 08:00 12/31/17 08:00 12/31/17 08:00 12/31/17 07:00 Oxygen Flow Rate (L/min) 2 Oxygen Delivery Method Room Air Weight: 90.1 kg Body Mass Index (BMI) 29.3 Finger Stick Blood Glucose 98 Intake and Output for Last 24 Hours 12/29/17 12/30/17 12/31/17 23:59 23:59 23:59 Intake Total 1586 / 1586 Balance 1586 / 1586 Laboratory Tests Past 24 Hrs 12/30/17 12/30/17 12/30/17 19:54 19:54 19:54 WBC 7.1 RBC 5.12 Hgb 16.9 H Hct 47.3 MCV 92.4 MCH 33.0 H MCHC 35.7 RDW 14.4 RDW Differential 48.6 H Plt Count 172 MPV 9.2 Immature Gran % (Auto) 0.100 Neut % (Auto) 49.4 Lymph % (Auto) 43.3 H [place] % (Auto) 4.4 Eos % (Auto) 1.7 Baso % (Auto) 1.1 H Absolute Neuts (auto) 3.5 Absolute Lymphs (auto) 3.05 Total Counted Not Reportable PT 12.7 INR 1.0 Sodium 138 Potassium 3.7 Chloride 103 Carbon Dioxide 23.0 Anion Gap 12 BUN 3 L Creatinine 0.73 Estim Creat Clear Calc 119.72 Est GFR (MDRD) Af Amer 145 Est GFR (MDRD) Non-Af 120 BUN/Creatinine Ratio 4.1 L Glucose 80 Calcium 8.3 L Phosphorus Magnesium Total Bilirubin 0.60 AST 59 H ALT 72 H Alkaline Phosphatase 86 Troponin I < 0.015 Total Protein 7.7 Albumin 3.8 Globulin 3.9 Albumin/Globulin Ratio 1.0 Lipase 464 H Vitamin B12 Folate Urine Color Urine Clarity Urine pH Ur Specific [place] Urine Protein Urine Glucose (UA) Urine Ketones Urine Occult Blood Urine Nitrite Urine Bilirubin Urine Urobilinogen Ur Leukocyte Esterase Urine RBC Urine WBC Ur Squamous Epith Cells Urine Bacteria Urine Mucus Ethyl Alcohol 12/30/17 12/31/17 12/31/17 23:45 02:15 02:15 WBC RBC Hgb 14.9 Hct 42.7 MCV MCH MCHC RDW RDW Differential Plt Count MPV Immature Gran % (Auto) Neut % (Auto) Lymph % (Auto) [place] % (Auto) Eos % (Auto) Baso % (Auto) Absolute Neuts (auto) Absolute Lymphs (auto) Total Counted PT INR Sodium 140 Potassium 3.5 Chloride 109 H Carbon Dioxide 22.0 Anion Gap 9 BUN 3 L Creatinine 0.65 L Estim Creat Clear Calc 134.45 Est GFR (MDRD) Af Amer 167 Est GFR (MDRD) Non-Af 138 BUN/Creatinine Ratio 4.6 L Glucose 75 Calcium 7.3 L Phosphorus 2.5 Magnesium 1.6 Total Bilirubin 0.60 AST 46 H ALT 55 Alkaline Phosphatase 74 Troponin I Total Protein 6.3 L Albumin 3.1 L Globulin 3.2 Albumin/Globulin Ratio 1.0 Lipase Vitamin B12 Folate 14.70 Urine Color Yellow Urine Clarity Clear Urine pH 6.0 Ur Specific [place] 1.020 Urine Protein 15 H Urine Glucose (UA) Normal Urine Ketones Negative Urine Occult Blood 10 H Urine Nitrite Negative Urine Bilirubin Negative Urine Urobilinogen Normal Ur Leukocyte Esterase 25 H Urine RBC 0-5 SEEN Urine WBC 0-5 SEEN Ur Squamous Epith Cells 0 SEEN Urine Bacteria RARE Urine Mucus 2+ Ethyl Alcohol 12/31/17 12/31/17 12/31/17 02:15 02:15 02:15 WBC RBC Hgb Hct MCV MCH MCHC RDW RDW Differential Plt Count MPV Immature Gran % (Auto) Neut % (Auto) Lymph % (Auto) [place] % (Auto) Eos % (Auto) Baso % (Auto) Absolute Neuts (auto) Absolute Lymphs (auto) Total Counted PT INR Sodium Potassium Chloride Carbon Dioxide Anion Gap BUN Creatinine Estim Creat Clear Calc Est GFR (MDRD) Af Amer Est GFR (MDRD) Non-Af BUN/Creatinine Ratio Glucose Calcium Phosphorus Magnesium Cancelled Total Bilirubin AST ALT Alkaline Phosphatase Troponin I Total Protein Albumin Globulin Albumin/Globulin Ratio Lipase Vitamin B12 Folate Cancelled Urine Color Urine Clarity Urine pH Ur Specific [place] Urine Protein Urine Glucose (UA) Urine Ketones Urine Occult Blood Urine Nitrite Urine Bilirubin Urine Urobilinogen Ur Leukocyte Esterase Urine RBC Urine WBC Ur Squamous Epith Cells Urine Bacteria Urine Mucus Ethyl Alcohol 168.0 12/31/17 12/31/17 12/31/17 02:15 06:05 06:05 WBC 4.4 RBC 4.39 L Hgb 14.4 Hct 40.6 MCV 92.5 MCH 32.8 H MCHC 35.5 RDW 14.3 RDW Differential 47.5 H Plt Count 143 L MPV 9.1 Immature Gran % (Auto) Neut % (Auto) Lymph % (Auto) [place] % (Auto) Eos % (Auto) Baso % (Auto) Absolute Neuts (auto) Absolute Lymphs (auto) Total Counted PT INR Sodium Potassium Chloride Carbon Dioxide Anion Gap BUN Creatinine Estim Creat Clear Calc Est GFR (MDRD) Af Amer Est GFR (MDRD) Non-Af BUN/Creatinine Ratio Glucose Calcium Phosphorus Cancelled Magnesium Total Bilirubin AST ALT Alkaline Phosphatase Troponin I Total Protein Albumin Globulin Albumin/Globulin Ratio Lipase Vitamin B12 Pending Folate Urine Color Urine Clarity Urine pH Ur Specific [place] Urine Protein Urine Glucose (UA) Urine Ketones Urine Occult Blood Urine Nitrite Urine Bilirubin Urine Urobilinogen Ur Leukocyte Esterase Urine RBC Urine WBC Ur Squamous Epith Cells Urine Bacteria Urine Mucus Ethyl Alcohol POC Glucose 12/31/17 12/31/17 06:00 01:14 POC Glucose 73 81 Assessment/Plan All Active Problems Alcohol withdrawal (Acute) Atypical chest pain (Acute) Unstable angina (Acute) Alcohol withdrawal seizure (Acute) Upper GI bleed (Acute) Acute pancreatitis (Acute) alcohol and likely polysubstance abuse, psychiatric disorders, questionable GI bleeding, concern for alcohol withdrawal I would obtain a toxicology screen in addition to the ocular level to see what additional substances are within the patient currently. In general it seems to me that he will need more true psychosocial evaluation than likely true current seizure activity. I would plan for upper and lower endoscopy Tuesday with a bowel prep on Tuesday so long as the patient otherwise remained stable.
--- NOTE | 2017-12-31 09:09 | CM.UR ---
Discussed patient with JAE Zamorano and reviewed chart. Due to addiction, withdrawal and homelessness being the more prevalent issues during this admission I alerted Lionel GARCIA to assess vet and make recommendations. Verb agreement. Katie Mariee RN, CCM.
[2017-12-31] MEDS: Folic Acid 1 MG Tablet PO (09:16)
[2017-12-31 09:31] LABS: Bedside Glucose 84 mg/dL (70-110)
--- NOTE | 2017-12-31 11:25 | NURSING ---
pt in chair and initially will not respond to RN while vocalizing frustration to himself. After several minutes pt states to RN he is hearing voices, but is aware they are not real. pt indicates that voices are non shandra and are just people from my past talking to me. Breathing exercises and relaxation techniques utilized and medication for anxiety given per APR.
--- NOTE | 2017-12-31 11:30 | NURSING ---
This RN sat and spoke w/pt at length re DT symptoms, ordered tx, closeness in which ICU RNs are assessing him (both while we are in the room and via camera/from the doorway when pt is unaware). Pt states before they put me to sleep for first 24 hours and I'm still awake. This RN disc disparity b/t his stated symptoms/how he looks/acts when staff in room vs how he looks/acts on camera or when he is unaware we are assessing him. He again says but I should be asleep right now. reviewed assess scales and how r/t to meds to given, how replacing his drugs of choice w/hosp drugs doesn't help him manage DTs or his addiction, trusting hospital staff to take care of him appropriately, being honest re whats his symptoms are instead of telling us what he thinks we need to hear in order to get the meds he thinks he wants/needs. He indicates understanding, was able to briefly disc how we balance his symptoms/meds in order to see him safely through DTs w/out simply replacing his drug of choice. This RN also disc [facility]. He states I'll take the information and we'll see. Initialized on 12/31/17 12:19 - END OF NOTE
[2017-12-31 11:36] LABS: Bedside Glucose 83 mg/dL (70-110)
[2017-12-31 12:17] LABS: Amphetamine Urine VISTA NEGATIVE (<1000 ng/mL); Barbiturate Urine VISTA NEGATIVE (< 200 ng/mL); Benzodiazepine Urine VISTA NEGATIVE (< 200 ng/mL); Cocaine Urine VISTA NEGATIVE (< 300 ng/mL); Ecstacy Urine VISTA POSITIVE (< 500 ng/mL); Methadone Urine VISTA NEGATIVE (< 300 ng/mL); PCP Urine VISTA NEGATIVE (< 25 ng/mL); THC Urine VISTA POSITIVE (< 50 ng/mL); Vista UDS pH Range 6
[2017-12-31] MEDS: levETIRAcetam 500 MG Tablet PO (13:54)
[2017-12-31] MEDS: hydrOXYzine PAM 25 MG Capsule PO (15:53)
--- NOTE | 2017-12-31 16:13 | CASEMGMT ---
SOCIAL WORK: Referral received this date from RN ARIANE due to patient self pay status and alcoholism. Chart reviewed. Patient admitted with complaints of alcohol withdrawal related seizures and upper GI bleed. He reportedly drinks a gallon of Vodka per day; ETOH level upon admission was 168. Patient also with history of Bipolar Disorder and reportedly homeless. This SW met with patient in his room in ICU; he was sitting up in a recliner chair. Eye contact poor, words slurred and hands noticeably shaking. Introduced self and SW role at [facility]. Patient denies to this SW that he is homeless and states that he lives with roommate of 25 years, Aurelia, at [address] [place] [address]. He states that neither he or Aurelia drive but that Aurelia does work. Patient reportedly has a job lined up if he can get out of here. He reports that he recently cancelled his Medicaid because he secured this job however now is requesting another application. He also states that he needs information on outpatient treatment programs and that he last completed a residential treatment program in [place] in 2014. He appears to be a limited historian and is not able to tell this SW how long he was able to maintain recovery. Patient denies attendance or interest in AA meetings because he got burned out on them and does not believe that they are run properly. He denies having any current income; is unable to recall the last time he was employed and denies having any family. Patient does state that he sees a counselor at [facility] in [facility], and that he has been active there for 14 years. He reportedly sees PCP, Dr. Katie Shannon, however denies being on any prescription medications prior to admission. Patient reportedly uses the bus for transportation needs. SW provided patient with the following written information; patient states that he can read: Medicaid application; flyer on [facility]; flyer on [employer]; information on ; [facility] listing; and flyer on services provided at [facility]. Patient denied any further needs or concerns and continued to deny being homeless. Wesley FOSTER,[facility]
[2017-12-31 17:31] LABS: Bedside Glucose 95 mg/dL (70-110)
[2017-12-31] MEDS: traZODone 50 MG Tablet PO (21:44)
[2018-01-01] VITALS (16 sets, daily range): BP systolic 130–159; BP diastolic 82–109; PULSE 79–92; RESP 15–23; TEMP 36.5–37; O2SAT 91–100
[2018-01-01 00:40] LABS: Bedside Glucose 99 mg/dL (70-110)
[2018-01-01] MEDS: chlordiazePOXIDE 25 MG Capsule PO ×3 (03:09→17:50)
[2018-01-01] MEDS: Dextrose 5%/0.9% NaCl 1,000 ML 100 ML IV ×2 (03:09→15:28)
[2018-01-01] MEDS: Ondansetron 4 MG/2 ML Vial IV (05:15)
[2018-01-01] MEDS: LORazepam 2 MG/ML Syringe IV (05:15)
[2018-01-01] MEDS: Methocarbamol 750 MG Tablet PO ×2 (05:41→15:33)
[2018-01-01 06:21] LABS: Bedside Glucose 108 mg/dL (70-110)
--- NOTE | 2018-01-01 08:08 | PCM.PN.HOSP ---
Patient Problems: Active and Suspected Problems Alcohol withdrawal (Acute) Alcohol withdrawal seizure (Acute) Upper GI bleed (Acute) Acute pancreatitis (Acute) Subjective: Patient is a 52-year-old gentleman with a history of chronic alcohol dependence with multiple admissions for alcohol withdrawal presented with significant tremors, self-reported seizures as well as melenic stools Objective: GENERAL: cooperative but tremulous at rest HEENT: Atraumatic; moist oral mucosa EYES; Anicteric, Normal Conjunctiva NECK; supple, normal thyroid, no distended JVD. RESPIRATORY: Diminished to auscultation bilaterally, CARDIOVASCULAR: Regular S1 S2, no audible murmurs GI: soft, non-tender, normoactive bowel sounds, : No Renal angle tenderness; EXTREMITIES: No edema, no clubbing, no cyanosis. MUSCULOSKELETAL: No Joint Tenderness; no muscle waisting NEURO: Awake; no lateralizing signs. SKIN: No Rash PSYCH; Normal affect Vitals/I&O's: Vital Signs Temp Pulse Resp BP Pulse Ox 98.4 F 83 17 145/105 H 94 01/01/18 06:00 01/01/18 07:00 01/01/18 07:00 01/01/18 07:00 01/01/18 07:23 Oxygen Flow Rate (L/min) 2 Oxygen Delivery Method Room Air Weight: 90.3 kg Body Mass Index (BMI) 29.3 Finger Stick Blood Glucose 98 Intake and Output for Last 24 Hours 12/30/17 12/31/17 01/01/18 23:59 23:59 23:59 Intake Total 2694 / 2694 1360 / 1360 Balance 2694 / 2694 1360 / 1360 Laboratory Results 12/30/17 23:45: Urine Opiates Screen NEGATIVE, Urine Methadone Screen NEGATIVE, Ur Barbiturates Screen NEGATIVE, Ur Phencyclidine Scrn NEGATIVE, Ur Amphetamines Screen NEGATIVE, U Methamphetamin-MDMA POSITIVE H, U Benzodiazepines Scrn NEGATIVE, Urine Cocaine Screen NEGATIVE, U Cannabinoids Screen POSITIVE H, Ur Drug Screen Comment 12/31/17 09:21: POC Glucose 84 12/31/17 11:31: POC Glucose 83 12/31/17 17:26: POC Glucose 95 01/01/18 00:33: POC Glucose 99 01/01/18 05:54: POC Glucose 108 Current Medications Acetaminophen (Tylenol) 500 mg PO Q4H PRN PRN PRN Reason: Temp > 100.4 F Chlordiazepoxide (Librium) 50 mg PO Q8H [facility]; Taper Stop: 01/03/18 02:29 Last Admin: 01/01/18 03:09 Dose: 50 mg Dextrose (D50w Syringe) 0 gm IV X1 PRN; Protocol PRN Reason: Hypoglycemia Dicyclomine HCl (Bentyl) 20 mg PO Q6H PRN PRN PRN Reason: abdominal discomfort Folic Acid (Folic Acid) 1 mg PO DAILYCM [facility] Last Admin: 12/31/17 09:16 Dose: 1 mg Glucagon () 1 mg IM .X1 PRN PRN Reason: Hypoglycemia Hydroxyzine Pamoate (Vistaril Pamoate Capsule) 25 mg PO Q6H PRN PRN PRN Reason: Mild Anxiety (score 1/3) Last Admin: 12/31/17 15:53 Dose: 25 mg Pantoprazole Sodium 40 mg/ (Sodium Chloride) 110 mls @ 330 mls/hr IV Q12 [facility] Last Admin: 12/31/17 21:44 Dose: 330 mls/hr Thiamine HCl 200 mg/ Sodium (Chloride) 52 mls @ 200 mls/hr IV DAILY [facility] Last Admin: 12/31/17 09:16 Dose: 200 mls/hr Sodium Chloride () 250 mls @ 15 mls/hr IV .[id number] PRN PRN Reason: SALINE FLUSH Dextrose/Sodium Chloride (Dextrose 5%/0.9% Nacl) 1,000 mls @ 100 mls/hr IV .Q10H [facility] Last Admin: 01/01/18 03:09 Dose: 100 mls/hr Insulin Human Lispro (Humalog Kwikpen (Bkc)) 0 unit SQ Q6 [facility]; Protocol Last Admin: 01/01/18 06:55 Dose: Not Given Levetiracetam (Keppra Tablet) 500 mg PO BID [facility] Last Admin: 12/31/17 13:54 Dose: 500 mg Loperamide HCl (Imodium) 2 - 4 mg PO UD PRN PRN Reason: LOOSE STOOLS Lorazepam (Ativan) 2 mg IV Q2H PRN PRN PRN Reason: Seizure Last Admin: 01/01/18 05:15 Dose: 2 mg Lorazepam (Ativan) 1 mg IV Q4H PRN PRN PRN Reason: Severe Anxiety Last Admin: 12/31/17 11:54 Dose: 1 mg Methocarbamol (Methocarbamol) 750 mg PO Q6H PRN PRN PRN Reason: Muscle Aches Last Admin: 01/01/18 05:41 Dose: 750 mg Nicotine (Nicoderm Cq (Pbkc)) 21 mg TRANSDERM. DAILY [facility] Last Admin: 12/31/17 09:16 Dose: 21 mg Ondansetron HCl (Zofran) 4 mg IV Q6H PRN PRN PRN Reason: NAUSEA Last Admin: 01/01/18 05:15 Dose: 4 mg Promethazine HCl (Phenergan) 12.5 mg IM Q6H PRN PRN PRN Reason: NAUSEA/VOMITING Sodium Chloride () 5 - 30 ml IV UD PRN PRN Reason: SALINE FLUSH Last Admin: 12/31/17 02:27 Dose: 10 ml Trazodone HCl (Desyrel) 50 mg PO QHS [facility] Last Admin: 12/31/17 21:44 Dose: 50 mg Medical Necessity - Tobacco Use Smoking Status: Current every day smoker Assessment/Plan All Active Problems Alcohol withdrawal (Acute) Atypical chest pain (Acute) Unstable angina (Acute) Alcohol withdrawal seizure (Acute) Upper GI bleed (Acute) Acute pancreatitis (Acute) Patient is a 52-year-old gentleman with a history of chronic alcohol dependence with multiple admissions for alcohol withdrawal presented with significant tremors, self-reported seizures as well as melenic stools 1. Acute alcohol withdrawal: Patient has been admitted to the intensive care unit where he is undergoing medical stabilization using Librium patient was also placed on supplemental multivitamin, folic acid as well as thiamine. 2. Melenic stools do suspect upper GI bleed possibly from gastritis patient is on Protonix consultation placed to Dr. Joyce for possible endoscopic evaluation prior to patient being discharged 3. Diabetes mellitus type II: Controlled patient's oral hypoglycemics held. Placed on Accu-Cheks a.c. and at bedtime and covered with sliding scale insulin 4. Hypertension-blood pressure controlled, home medications continued with dose adjustment as needed 5. Alcohol withdrawal seizures patient was started on Keppra 6. Tobacco dependence counseled on cessation, offered nicotine patch for tobacco cravings 7. DVT prophylaxis; held of systemic anticoagulation in view of patient melena Code Visit Inpatient E&M: 96825 Subs Hosp L2
--- NOTE | 2018-01-01 08:11 | PN_ITS ---
Patient Problems: Active and Suspected Problems Alcohol withdrawal (Acute) Alcohol withdrawal seizure (Acute) Upper GI bleed (Acute) Acute pancreatitis (Acute) Subjective: Patient is a 52-year-old gentleman with a history of chronic alcohol dependence with multiple admissions for alcohol withdrawal presented with significant trem ors, self-reported seizures as well as melenic stools Objective: GENERAL: cooperative but tremulous at rest HEENT: Atraumatic; moist oral mucosa EYES; Anicteric, Normal Conjunctiva NECK; supple, normal thyroid, no distended JVD. RESPIRATORY: Diminished to auscultation bilaterally, CARDIOVASCULAR: Regular S1 S2, no audible murmurs GI: soft, non-tender, normoactive bowel sounds, : No Renal angle tenderness; EXTREMITIES: No edema, no clubbing, no cyanosis. MUSCULOSKELETAL: No Joint Tenderness; no muscle waisting NEURO: Awake; no lateralizing signs. SKIN: No Rash PSYCH; Normal affect Vitals/I&O's: Vital Signs Temp Pulse Resp BP Pulse Ox 98.4 F 83 17 145/105 H 94 01/01/18 06:00 01/01/18 07:00 01/01/18 07:00 01/01/18 07:00 01/01/18 07:23 Oxygen Flow Rate (L/min) 2 Oxygen Delivery Method Room Air Weight: 90.3 kg Body Mass Index (BMI) 29.3 Finger Stick Blood Glucose 98 Intake and Output for Last 24 Hours 12/30/17 12/31/17 01/01/18 23:59 23:59 23:59 Intake Total 2694 / 2694 1360 / 1360 Balance 2694 / 2694 1360 / 1360 Laboratory Results 12/30/17 23:45: Urine Opiates Screen NEGATIVE, Urine Methadone Screen NEGATIVE, Ur Barbiturates Screen NEGATIVE, Ur Phencyclidine Scrn NEGATIVE, Ur Amphetamines Screen NEGATIVE, U Methamphetamin-MDMA POSITIVE H, U Benzodiazepines Scrn NEGATIVE, Urine Cocaine Screen NEGATIVE, U Cannabinoids Screen POSITIVE H, Ur Drug Screen Comment 12/31/17 09:21: POC Glucose 84 12/31/17 11:31: POC Glucose 83 12/31/17 17:26: POC Glucose 95 01/01/18 00:33: POC Glucose 99 01/01/18 05:54: POC Glucose 108 Current Medications Acetaminophen (Tylenol) 500 mg PO Q4H PRN PRN PRN Reason: Temp > 100.4 F Chlordiazepoxide (Librium) 50 mg PO Q8H [facility]; Taper Stop: 01/03/18 02:29 Last Admin: 01/01/18 03:09 Dose: 50 mg Dextrose (D50w Syringe) 0 gm IV X1 PRN; Protocol PRN Reason: Hypoglycemia Dicyclomine HCl (Bentyl) 20 mg PO Q6H PRN PRN PRN Reason: abdominal discomfort Folic Acid (Folic Acid) 1 mg PO DAILYCM [facility] Last Admin: 12/31/17 09:16 Dose: 1 mg Glucagon () 1 mg IM .X1 PRN PRN Reason: Hypoglycemia Hydroxyzine Pamoate (Vistaril Pamoate Capsule) 25 mg PO Q6H PRN PRN PRN Reason: Mild Anxiety (score 1/3) Last Admin: 12/31/17 15:53 Dose: 25 mg Pantoprazole Sodium 40 mg/ (Sodium Chloride) 110 mls @ 330 mls/hr IV Q12 [facility] Last Admin: 12/31/17 21:44 Dose: 330 mls/hr Thiamine HCl 200 mg/ Sodium (Chloride) 52 mls @ 200 mls/hr IV DAILY [facility] Last Admin: 12/31/17 09:16 Dose: 200 mls/hr Sodium Chloride () 250 mls @ 15 mls/hr IV .[id number] PRN PRN Reason: SALINE FLUSH Dextrose/Sodium Chloride (Dextrose 5%/0.9% Nacl) 1,000 mls @ 100 mls/hr IV .Q10H [facility] Last Admin: 01/01/18 03:09 Dose: 100 mls/hr Insulin Human Lispro (Humalog Kwikpen (Bkc)) 0 unit SQ Q6 [facility]; Protocol Last Admin: 01/01/18 06:55 Dose: Not Given Levetiracetam (Keppra Tablet) 500 mg PO BID [facility] Last Admin: 12/31/17 13:54 Dose: 500 mg Loperamide HCl (Imodium) 2 - 4 mg PO UD PRN PRN Reason: LOOSE STOOLS Lorazepam (Ativan) 2 mg IV Q2H PRN PRN PRN Reason: Seizure Last Admin: 01/01/18 05:15 Dose: 2 mg Lorazepam (Ativan) 1 mg IV Q4H PRN PRN PRN Reason: Severe Anxiety Last Admin: 12/31/17 11:54 Dose: 1 mg Methocarbamol (Methocarbamol) 750 mg PO Q6H PRN PRN PRN Reason: Muscle Aches Last Admin: 01/01/18 05:41 Dose: 750 mg Nicotine (Nicoderm Cq (Pbkc)) 21 mg TRANSDERM. DAILY [facility] Last Admin: 12/31/17 09:16 Dose: 21 mg Ondansetron HCl (Zofran) 4 mg IV Q6H PRN PRN PRN Reason: NAUSEA Last Admin: 01/01/18 05:15 Dose: 4 mg Promethazine HCl (Phenergan) 12.5 mg IM Q6H PRN PRN PRN Reason: NAUSEA/VOMITING Sodium Chloride () 5 - 30 ml IV UD PRN PRN Reason: SALINE FLUSH Last Admin: 12/31/17 02:27 Dose: 10 ml Trazodone HCl (Desyrel) 50 mg PO QHS [facility] Last Admin: 12/31/17 21:44 Dose: 50 mg Medical Necessity - Tobacco Use Smoking Status: Current every day smoker Assessment/Plan All Active Problems Alcohol withdrawal (Acute) Atypical chest pain (Acute) Unstable angina (Acute) Alcohol withdrawal seizure (Acute) Upper GI bleed (Acute) Acute pancreatitis (Acute) Patient is a 52-year-old gentleman with a history of chronic alcohol dependence with multiple admissions for alcohol withdrawal presented with significant tremors, self-reported seizures as well as melenic stools 1. Acute alcohol withdrawal: Patient has been admitted to the intensive care [facility] where he is undergoing medical stabilization using Librium patient was also placed on supplemental multivitamin, folic acid as well as thiamine. 2. Melenic stools do suspect upper GI bleed possibly from gastritis patient is on Protonix consultation placed to Dr. Joyce for possible endoscopic evaluation prior to patient being discharged 3. Diabetes mellitus type II: Controlled patient's oral hypoglycemics held. Placed on Accu-Cheks a.c. and at bedtime and covered with sliding scale insulin 4. Hypertension-blood pressure controlled, home medications continued with dose adjustment as needed 5. Alcohol withdrawal seizures patient was started on Keppra 6. Tobacco dependence counseled on cessation, offered nicotine patch for tobacco cravings 7. DVT prophylaxis; held of systemic anticoagulation in view of patient melena Code Visit Inpatient E&M: [id number] Subs Hosp L2
[2018-01-01] MEDS: levETIRAcetam 500 MG Tablet PO ×2 (09:11→22:17)
[2018-01-01] MEDS: Folic Acid 1 MG Tablet PO (09:11)
--- NOTE | 2018-01-01 09:39 | PCM.PN.SRG ---
Patient Problems: Active and Suspected Problems Alcohol withdrawal (Acute) Alcohol withdrawal seizure (Acute) Upper GI bleed (Acute) Acute pancreatitis (Acute) Subjective: no bleeding noted since admission - Physical Exam General: Alert, Oriented x3 Lungs: Clear to auscultation, Normal air movement Cardiovascular: Regular rate, No murmurs Abdomen: Bowel Sounds Present, Soft, Non Tender Vital Signs Temp Pulse Resp BP Pulse Ox 98.6 F 92 15 147/100 H 93 01/01/18 08:00 01/01/18 08:00 01/01/18 08:00 01/01/18 08:00 01/01/18 08:00 Oxygen Flow Rate (L/min) 2 Oxygen Delivery Method Room Air Weight: 90.3 kg Body Mass Index (BMI) 29.3 Finger Stick Blood Glucose 98 Intake and Output for Last 24 Hours 12/30/17 12/31/17 01/01/18 23:59 23:59 23:59 Intake Total 2694 / 2694 1360 / 1360 Balance 2694 / 2694 1360 / 1360 Laboratory Tests Past 24 Hrs 12/30/17 23:45 Urine Opiates Screen NEGATIVE Urine Methadone Screen NEGATIVE Ur Barbiturates Screen NEGATIVE Ur Phencyclidine Scrn NEGATIVE Ur Amphetamines Screen NEGATIVE U Methamphetamin-MDMA POSITIVE H U Benzodiazepines Scrn NEGATIVE Urine Cocaine Screen NEGATIVE U Cannabinoids Screen POSITIVE H Ur Drug Screen Comment POC Glucose 01/01/18 01/01/18 12/31/17 05:54 00:33 17:26 POC Glucose 108 99 95 12/31/17 11:31 POC Glucose 83 Medical Necessity - Tobacco Use Smoking Status: Current every day smoker Assessment/Plan All Active Problems Alcohol withdrawal (Acute) Atypical chest pain (Acute) Unstable angina (Acute) Alcohol withdrawal seizure (Acute) Upper GI bleed (Acute) Acute pancreatitis (Acute) alcohol and likely polysubstance abuse, psychiatric disorders, questionable GI bleeding, concern for alcohol withdrawal toxicology screen demonstrated methamphetamine. In general it seems to me that he will need more true psychosocial evaluation than likely true current seizure activity. I would plan for upper and lower endoscopy Tuesday. while the patient notes black tarry stools and blood in the last 2 weeks. His hemoglobin is stable. Nonetheless. His age alone and is due for colonoscopy and given his alcohol history he should have upper endoscopy to check for sequelae of chronic alcohol abuse.. Would plan to start GoLYTELY this afternoon. Patient understands risks, benefits, possible complications and alternatives and consents to procedure.
--- NOTE | 2018-01-01 09:46 | NURSING ---
report given Gayatri ROWE. sofía 209 per WC
--- NOTE | 2018-01-01 10:53 | NURSING ---
Nurse offers Vistaril for anxiety. Pt. refuses.
--- NOTE | 2018-01-01 11:49 | NURSING ---
Nurse inquires about patient's home medication list. He states that he is on Celexa, Paxil, Wellbutrin, and Seroquel but is unable to provide dosages. Nurse contacts [facility] in [place] to try and confirm. [facility] does not have these medications on file. Pt. states that he uses [facility] through [facility].
[2018-01-01 12:05] LABS: Bedside Glucose 115 mg/dL (70-110)
--- NOTE | 2018-01-01 12:09 | NURSING ---
late entry for 01/01/18 @- Received phone all from JAE Angelo Research Anthropologist notifying this RN that patient called ER and stated that he is very anxious and needs help. He states that he notified his nurse on the unit and that doctor is refusing to give him any medication because he said he is trying to teach him a lesson. Doctor had been notified by JAE Soni prior to this report that pt was requesting something more for anxiety. Dr. Mccormick reported that pt. is on medication for anxiety, ativan PRN, librium taper and vistaril. No new medications were ordered at that time. Nae, primary RN and this RN entered pt's room and notified him that the nursing supervisor dumping called to let staff know that patient was calling ER requesting meds for anxiety and that the doctor was not ordering to punish him. Notified patient that other units cannot help pt and that he must go through the proper channel to request things that he needs. Notified that just because you request something does not mean that it will happen because it has to be determined as helpful for patient and safe. Pt verbalized understanding. Patient states that he has many home medications but that he has not been on them for 3 months because his insurance was cut off and he cannot afford them. He states that is when he turned back to drinking alcohol. He states that he has been drinking alcohol since he was 8. He voiced concern of his health recently due to lack of adequate nutrition and the inability to keep food in his body due to nausea/ vomiting. He reports he would have to buy 4 cheeseburgers from [employer] just to keep 1 down. He states that liquids have been fine- and that he is not nauseated with them. Pt states that he has had some dark stools and noted some blood in his vomit at times. He voiced understanding for scopes tomorrow and of prep required. He states that he has had them before and that he expects to walk home after they are completed like he did in the past. He stated that last week his friend had called the counseling center requesting help with detox and that they told him it would be $6000 because he doesn't have insurance. Pt has insurance listed as [employer] but states that he called last week and they told him he will not be covered for about 14 more days. Pt reports that he does take paxil, celexa, wellbutrin and seroquel at home. Emotional support provided by this RN and Nae RN asked pt not to call other units- notified that they cannot order anything for him, as all orders must go through the doctor he is assigned on [place]. Pt verbally agreed. Notified pt that we will check med list with [facility] and that doctor will be notified that he may have home meds that are not currently on home med list. Pt shook this RN's hand and stated, that is all I could ask for. This RN called [facility]- hours are M-F 8a-5p. This RN left message with [facility] and requested for them to call us tomorrow morning on charger operator helper cell regarding pt's home medications. Dr. Mccormick notified of same and of pt request for home med seroquel. This RN notified Dr. Mccormick of same and he again stated that pt is on kiana. medication for anxiety and has prn ativan and vistaril. He looked at past orders and stated that he would order medications that were ordered in past and staff will verify them tomorrow. Ok to start medications ordered today.
[2018-01-01] MEDS: amLODIPine 10 MG Tablet PO (13:50)
[2018-01-01] MEDS: buPROPion (XL) 150 MG TABLET.XL PO (14:17)
[2018-01-01] MEDS: Electrolyte Solution/Peg's 4000 ML PO (16:10)
[2018-01-01 17:35] LABS: Bedside Glucose 111 mg/dL (70-110)
[2018-01-01] MEDS: Atenolol 25 MG Tablet PO (22:17)
[2018-01-01] MEDS: traZODone 50 MG Tablet PO (22:58)
[2018-01-01] MEDS: QUEtiapine 100 MG Tablet 200 MG PO (22:59)
[2018-01-01 23:11] LABS: Bedside Glucose 108 mg/dL (70-110)
[2018-01-02] VITALS (14 sets, daily range): BP systolic 102–129; BP diastolic 68–90; PULSE 66–82; RESP 16–18; TEMP 35.9–36.7; O2SAT 95–100
--- NOTE | 2018-01-02 | IMM_PTH ---
PATIENT: JACKELINE MERA LOC: [facility] U#:[id number] AGE/SX: 52/M ROOM: [facility] RE12/31/[address]: Dr. Mercy Alvarenga MD : [id number] BED: 1 DIS: 01/02/2018 SPEC #: [id number] RECD: 01/04/18 07:55 STATUS: SOUPoncho REQ #: [id number] NEEL: 01/02/18 00:[address]: Mercy Alvarenga DEPT: IMMUNOHISTOCHEMISTRY RECD BY: Alli Solorzano ENTERED: 01/04/18 07:55 SP TYPE: IMMUNO OTHR DR: DO Dr. Edison Capone MD Dr. Prakash Chand, MD Dr. Richard Guttman, MD Tissues: Gastric mucous membrane Procedures: H Pylori (initial) PHYSICIAN & INSTITUTION [place] [id number] SPECIMEN INFORMATION: Tissue Source: Antrum, biopsy: Clinical Info: GI bleeding, screening, alcoholism Specimen Number: [id number] CPT code: 07289 METHODOLOGY: Deparaffinized sections of prefer/formalin-fixed tissue or PAP/DQ stained slides are incubated with monoclonal/polyclonal antibodies/oligonucleotide probes. Localization is made via biotin free immunoperoxidase method. Appropriate controls are performed and reacted as expected. Results on target cell population are indicated in the following table: RESULTS: ANTIBODY / CLONE RESULT H Pylori (polyclonal) negative These tests were developed and their performance characteristics determined by [facility]. They may not have been cleared or approved by the U.S. Food and Drug Administration. The FDA has determined that such clearance or approval is not necessary. INTERPRETATION: Antrum, biopsy: Negative for Helicobacter pylori organisms. SJ:nabil 01/05/18
[2018-01-02] MEDS: LORazepam 2 MG/ML Syringe 1 MG IV ×2 (01:18→07:02)
[2018-01-02] MEDS: chlordiazePOXIDE 25 MG Capsule PO (02:35)
[2018-01-02] MEDS: Dextrose 5%/0.9% NaCl 1,000 ML 100 ML IV ×2 (02:35→13:00)
[2018-01-02] MEDS: Acetaminophen 500 MG Tablet PO (02:40)
[2018-01-02 06:46] LABS: Bedside Glucose 114 mg/dL (70-110)
--- NOTE | 2018-01-02 08:01 | PCM.PROGNOTE ---
Patient Problems: Active and Suspected Problems Alcohol withdrawal (Acute) Upper GI bleed (Acute) Subjective: Chief complaint: Follow-up after admission for acute alcohol withdrawal, melena/suspect upper GI bleed. Patient seen and examined. No acute events overnight. This morning, he mentioned his level of anxiety and restlessness is much better and his withdrawal symptoms significantly improved. He denies any chest pain or shortness of breath. Still complaining of dark black stools. Denies abdominal pain, nausea or vomiting. His vital signs are stable. - Physical Exam General: Alert, Oriented x3, Cooperative, No apparent distress HEENT: Atraumatic, PERRLA, EOMI, Normocephalic Oral: Moist Mucosa, No Gingival or Mucosal Lesions/ Ulcerations Neck: Supple, No JVD, Negative Carotid Bruits, Trachea Midline, Thyroid Normal Size and Texture Lungs: Clear to auscultation, Normal air movement, No rhonchi, No wheeze, No rales Cardiovascular: Regular rate, Regular Rhythm, Normal S1, Normal S2, PMI Normal Abdomen: Bowel Sounds Present, Soft, Non Tender, Non-Distended, No Hepato-splenomegaly Extremities: No clubbing, No cyanosis, No edema Skin: No rashes, No breakdown Lymphatic: No Cervical, Supraclavicular, or Inguinal Adenopathy Neurological: Cranial nerves II-XII grossly intact, Motor Exam 5/5 strength throughout Psych/Mental Status: Normal Affect, Appropriate, Alert and oriented to time, place, person, mood and affect Vital Signs Temp Pulse Resp BP Pulse Ox 97.5 F L 82 18 102/69 97 01/02/18 06:31 01/02/18 06:31 01/02/18 06:31 01/02/18 06:31 01/02/18 07:00 Oxygen Flow Rate (L/min) 2 Oxygen Delivery Method Room Air Weight: 199 lb 11.821 oz Body Mass Index (BMI) 29.3 Finger Stick Blood Glucose 98 Intake and Output for Last 24 Hours 12/31/17 01/01/18 01/02/18 23:59 23:59 23:59 Intake Total 2694 / 2694 1360 / 1360 3364 / 3364 Balance 2694 / 2694 1360 / 1360 3364 / 3364 Microbiology Past 72 Hours 12/30/17 23:45 Urine Culture - Final Urine, Clean Catch Mixed Gram Positive Organisms POC Glucose 01/02/18 01/01/18 01/01/18 06:28 23:01 17:28 POC Glucose 114 H 108 111 H 01/01/18 12:01 POC Glucose 115 H Medical Necessity - Tobacco Use Smoking Status: Current every day smoker Tobacco Use: Cigarettes Assessment/Plan All Active Problems Alcohol withdrawal (Acute) Upper GI bleed (Acute) This is a 52 years old male patient admitted for acute alcohol withdrawal and GI bleed. #1 acute alcohol withdrawal: Upon admission, patient was intoxicated, blood alcohol level was 168. Then, he went into acute alcohol withdrawal. He is on as needed Ativan, folic acid and thiamine supplement, Librium, Vistaril, methocarbamol, Seroquel and trazodone. Symptoms of anxiety and tremors improved. His vital signs are stable. His routine blood work was unremarkable. His liver transaminases were slightly elevated which is likely because of chronic alcoholic liver disease. Plan to continue same treatment, possible DC home today after the upper EGD and colonoscopy. #2 melena/suspected upper GI bleed: Patient with chronic heavy drinking, he has been drinking since age of 6 years. Esophageal varices is in the differential diagnosis. At this time, no active bleeding. Hemoglobin and hematocrit are stable. General surgery consulted, plan for upper EGD and colonoscopy today. He is on IV Protonix. #3 type 2 diabetes mellitus: Patient on not taking his metformin for the last 6 years, cannot afford his medications. Blood sugar has been stable. He is on insulin sliding scale only. Hemoglobin A1c was 5.2 on July,. #4 hypertension: Blood pressure stable. Continue Norvasc and atenolol. Again, patient has not been taking his antihypertensive medications for the last 6 months. #5 history of alcohol withdrawal seizure: Started back on Keppra twice daily. #6 tobacco abuse: NicoDerm patch. #7 DVT prophylaxis: SCDs. This note was generated with [employer] dictation software. It may contain incorrect words, spelling, and punctuation that were not noted in checking the note before signing.
[2018-01-02] MEDS: Folic Acid 1 MG Tablet PO (08:57)
[2018-01-02] MEDS: levETIRAcetam 500 MG Tablet PO (08:57)
[2018-01-02] MEDS: amLODIPine 10 MG Tablet PO (08:58)
[2018-01-02] MEDS: Atenolol 25 MG Tablet PO (08:58)
[2018-01-02] MEDS: buPROPion (XL) 150 MG TABLET.XL PO (08:58)
[2018-01-02 10:36] LABS: Vitamin B12 452 pg/mL (211-911)
[2018-01-02 11:35] LABS: Bedside Glucose 70 mg/dL (70-110)
--- NOTE | 2018-01-02 13:58 | DCINST_ITS ---
- Discharge Diagnoses Current Active Problems: Current Active and Chronic Problems Alcohol withdrawal (Acute) Upper GI bleed (Acute) You will use the following diet at home:: Calorie/Carbohydrate Controlled (specify 1200, 1400, etc) - 2000 adam., Cardiac Your food should be the consistency of: Regular Discharge Activity: Return to Normal Activity Weight Bearing Status: Weight bearing as tolerated Call your doctor if you observe: Fever of 101 or Higher, Shortness of breath, Dizziness, Fainting spells, Swelling in the ankles, Chest pain, Increased palpitations (irregular heartbeat), Uncontrolled pain Instructions: Using a Blood Sugar Log, Hyperglycemia (High Blood Sugar), Hypoglycemia (Low Blood Sugar), How to Check Your Blood Sugar, Controlling High Blood Pressure, Taking Your Blood Pressure, Alcohol Withdrawal: What to Expect, The Impact of Alcoholism Allergies/Adverse Reactions: Allergies amoxicillin [Amoxicillin] Allergy (Verified 12/30/17 19:20) Anaphylaxis Penicillins Allergy (Verified 12/30/17 19:20) Anaphylaxis Medications to take at Discharge Amlodipine [Norvasc] 10 mg PO DAILY #90 tablet 01/02/18 Atenolol [Tenormin (beta clem)] 25 mg PO BID #90 tablet 01/02/18 Folic Acid 1 mg PO DAILYCM #30 tablet 01/02/18 Pantoprazole Sodium [Protonix] 40 mg PO DAILY #30 tablet 01/02/18 Quetiapine Fumarate [Seroquel] 100 mg PO QHS #30 tablet 01/02/18 Thiamine HCl [B-1] 100 mg PO DAILY #30 tablet 01/02/18 levETIRAcetam tablet [Keppra tablet] 500 mg PO BID #90 tablet 01/02/18 The following prescriptions were given: Amlodipine [Norvasc] 10 mg PO DAILY #90 tablet Folic Acid 1 mg PO DAILYCM #30 tablet Pantoprazole Sodium [Protonix] 40 mg PO DAILY #30 tablet Quetiapine Fumarate [Seroquel] 100 mg PO QHS #30 tablet Thiamine HCl [B-1] 100 mg PO DAILY #30 tablet Atenolol [Tenormin (beta clem)] 25 mg PO BID #90 tablet levETIRAcetam tablet [Keppra tablet] 500 mg PO BID #90 tablet Primary Care Physician: Ediosn Shannon MD [Primary Care Provider] - Please follow up with your Primary Care Physician in: 1 week. Test Results: Test results from this visit will be discussed in further detail at your follow- up appointment, if applicable.
--- NOTE | 2018-01-02 14:31 | DS.PCM_ITS ---
Discharge Date and Diagnosis Date of Admission: 12/31/17 Date of Discharge: 01/02/18 - Primary Discharge Diagnosis Active and Suspected Problems #1 acute alcohol withdrawal. #2 melena/suspected GI bleed. #3 gastritis/mildly severe reflux esophagitis. #4 noncompliance. - Secondary Discharge Diagnosis Chronic Problems Alcohol withdrawal delirium, acute, hyperactive (Chronic) DM type 2 (diabetes mellitus, type 2) (Chronic) Bipolar 1 disorder (Chronic) History of kidney stones (Chronic) Continuous chronic alcoholism (Chronic) up to 1 gallon vodka daily Tobacco use (Chronic) Psychiatric pseudoseizure (Chronic) Homelessness (Chronic) Benign essential hypertension (Chronic) Hospital Course and Treatment Imaging Results: Clinical Impression(s) from Imaging Studies Abdomen Ultrasound 12/31/17 05:55 IMPRESSION: Hepatomegaly with fatty changes. Trace perihepatic fluid. Electronically Signed: Porter Escobar DO at 15:50 EST Tel [phone], Service support , Dr. Joyce, general surgery. Operations: None Procedures: Colonoscopy, EGD Summary of Care Provided: Patient seen and examined on the day of discharge and appeared to be stable to be discharged home. His vitals were stable. The patient is a 52 year old M admitted for symptoms of acute alcohol withdrawal as well as melena. Upon admission, patient was intoxicated with alcohol and his blood alcohol level was 168. He went into acute alcohol withdrawal. He was treated with as needed Ativan, folic acid, thiamine supplement as well as Librium, Vistaril, methocarbamol and Seroquel. Initially, patient was very restless, anxious and tachycardic and with treatment, his level of anxiety significantly improved and his vitals were stabilized. He complains of melena/black colored stool. There was no evidence of anemia. There was a concern that he may have bleeding esophageal varices. He underwent upper EGD that revealed gastritis and mildly severe reflux esophagitis without evidence of esophageal varices or active bleeding. Also, he underwent colonoscopy that was unremarkable without evidence of active bleeding, masses or polyps. This patient has been drinking alcohol since age of 6 years. He stopped taking his diabetic and antihypertensive medications for at least the last 6 months because he cannot afford them according to the patient. During this hospital stay, his blood sugar has been stable. He had hemoglobin A1c done on July, that was 5.2. His blood sugar remained around 80-110 mg/dL. He did not require any significant high doses of insulin sliding scale. Previously, he was on metformin according to the patient. His blood pressure was elevated and he was started on Norvasc and atenolol and his blood pressure improved. He had a history of alcohol withdrawal with seizure in the past and he has been on Keppra but has noT been taking it for the last few months unfortunately, he had no seizures so far. He was started back on Keppra 500 mg p.o. twice daily. With above-mentioned treatment, patient symptoms of withdrawal improved. His vital signs stabilized. His hemoglobin and hematocrit remained stable. His other routine blood work was unremarkable. Patient discharged home in a stable medical condition, discharged on Norvasc and atenolol for hypertension, discharged on Keppra 500 mg p.o. twice daily for history of alcohol withdrawal seizure, discharged on Protonix for gastritis and esophagitis, discharged on Xanax for anxiety as needed, discharged on folic acid and thiamine as well as Seroquel, counseled extensively about continuing drinking alcohol and long-term complications as well as acute complications of alcoholism, recommended to check blood sugar at least 3 times daily, check blood pressure at least twice daily, new prescriptions for all of his medications given, recommended to follow-up with PCP in 1 week. - Physical Exam General: Alert, Oriented x3, Cooperative, No apparent distress HEENT: Atraumatic, PERRLA, EOMI, Normocephalic Oral: Moist Mucosa, No Gingival or Mucosal Lesions/ Ulcerations Neck: Supple, No JVD, Negative Carotid Bruits, Trachea Midline, Thyroid Normal Size and Texture Lungs: Clear to auscultation, No rhonchi, No wheeze, No rales, Diminished Cardiovascular: Regular rate, Regular Rhythm, Normal S1, Normal S2, PMI Normal Abdomen: Bowel Sounds Present, Soft, Non Tender, Non-Distended, No Hepato- splenomegaly Extremities: No clubbing, No cyanosis, No edema Skin: No rashes, No breakdown Lymphatic: No Cervical, Supraclavicular, or Inguinal Adenopathy Neurological: Cranial nerves II-XII grossly intact, Neuro grossly intact Psych/Mental Status: Normal Affect, Appropriate Vital Signs Temp Pulse Resp BP Pulse Ox 98.0 F 70 18 110/75 100 01/02/18 14:00 01/02/18 14:00 01/02/18 14:00 01/02/18 14:00 01/02/18 14:00 Oxygen Flow Rate (L/min) 2 Oxygen Delivery Method Room Air Weight: 199 lb 11.821 oz Body Mass Index (BMI) 29.3 Finger Stick Blood Glucose 98 Intake and Output for Last 24 Hours 12/31/17 01/01/18 01/02/18 23:59 23:59 23:59 Intake Total 2694 / 2694 1360 / 1360 5068 / 5068 Balance 2694 / 2694 1360 / 1360 5068 / 5068 Microbiology Past 72 Hours 12/30/17 23:45 Urine Culture - Final Urine, Clean Catch Mixed Gram Positive Organisms Laboratory Tests Past 24 Hrs 12/31/17 06:05 Vitamin B12 452 POC Glucose 01/02/18 01/02/18 01/01/18 11:27 06:28 23:01 POC Glucose 70 114 H 108 01/01/18 17:28 POC Glucose 111 H Discharge Activity: Return to Normal Activity Weight Bearing Status: Weight bearing as tolerated Call your doctor if you observe: Fever of 101 or Higher, Shortness of breath, Dizziness, Fainting spells, Swelling in the ankles, Chest pain, Increased palpitations (irregular heartbeat), Uncontrolled pain Home Medications: Medications to take at Discharge ALPRAZolam [Xanax] 0.5 mg PO BID PRN PRN #14 tab 01/02/18 Amlodipine [Norvasc] 10 mg PO DAILY #90 tablet 01/02/18 Atenolol [Tenormin (beta clem)] 25 mg PO BID #90 tablet 01/02/18 Folic Acid 1 mg PO DAILYCM #30 tablet 01/02/18 Pantoprazole Sodium [Protonix] 40 mg PO DAILY #30 tablet 01/02/18 Quetiapine Fumarate [Seroquel] 100 mg PO QHS #30 tablet 01/02/18 Thiamine HCl [B-1] 100 mg PO DAILY #30 tablet 01/02/18 levETIRAcetam tablet [Keppra tablet] 500 mg PO BID #90 tablet 01/02/18 Following Prescrptions Were Given to Patient: ALPRAZolam [Xanax] 0.5 mg PO BID PRN PRN #14 tab PRN Reason: Anxiety/Agitation Amlodipine [Norvasc] 10 mg PO DAILY #90 tablet Folic Acid 1 mg PO DAILYCM #30 tablet Pantoprazole Sodium [Protonix] 40 mg PO DAILY #30 tablet Quetiapine Fumarate [Seroquel] 100 mg PO QHS #30 tablet Thiamine HCl [B-1] 100 mg PO DAILY #30 tablet Atenolol [Tenormin (beta clem)] 25 mg PO BID #90 tablet levETIRAcetam tablet [Keppra tablet] 500 mg PO BID #90 tablet Primary Care Physician: Edison Shannon MD [Primary Care Provider] - Please follow up with your Primary Care Physician in: 1 week. Patient Instructions: Using a Blood Sugar Log, Controlling High Blood Pressure, Hyperglycemia (High Blood Sugar), Hypoglycemia (Low Blood Sugar), How to Check Your Blood Sugar, Taking Your Blood Pressure, The Impact of Alcoholism, Alcohol Withdrawal: What to Expect Disposition: Home Minutes spent on discharge:: 32 Patient Condition:: Stable Medical Necessity - Tobacco Use Smoking Status: Current every day smoker Tobacco Use: Cigarettes Meaningful Use Info Meaningful Use Diagnoses (Choose all that apply): None applicable Code Visit Inpatient E&M: 06241 Disch Hosp
[2018-01-02 14:36] LABS: Bedside Glucose 85 mg/dL (70-110)
--- NOTE | 2018-01-02 15:00 | EGD_PTH ---
PATIENT: JACKELINE MERA LOC: MS2 U#:[id number] AGE/SX: 52/M RO[facility]: [id number] RE12/31/[address]: Dr. Mercy Alvarenga MD : 1965 BED: 1 DIS: 01/02/2018 SPEC #: [id number] RECD: 01/03/18 09:01 STATUS: WALDEMAR KOBE #: [id number] NEEL: 01/02/18 15:[address]: Mercy Alvarenga DEPT: SURGICAL PATHOLOGY RECD BY: Ian Sanford ENTERED: 01/03/18 11:07 SP TYPE: EGD BIOPSY OT DR: DO Dr. Edison Capone MD Dr. Prakash Chand, MD Dr. Richard Guttman, MD Tissues: A - Gastric mucous membrane B - Gastric mucous membrane Procedures: Surgery Specimen Level IV HEADER OPERATION: Colonoscopy, EGD ([facility] [place]) PRE-OP DIAGNOSIS: GI bleeding, screening, alcoholism TISSUE SUBMITTED: A. Antrum biopsy for H. Pylori, B. GE junction biopsy MICROSCOPIC DIAGNOSIS A. Antrum biopsy: Mild gastritis. B. GE junction, biopsy: Fragments of gastroesophageal mucosa with chronic inflammation. Intestinal metaplasia (goblet cell metaplasia) not identified. See Comment SJ:[email or web address] 01/04/18 COMMENT A. The results of immunohistochemistry for Helicobacter pylori will be reported separately ([id number]). B. Alcian blue/PAS stain with matched control is used in the evaluation of the specimen. MICROSCOPIC DESCRIPTION Slides are reviewed. A. The specimen shows fragments of gastric mucosa with chronic inflammatory cell infiltrates in the lamina propria consisting of lymphocytes and plasma cells, consistent with mild chronic gastritis. GROSS DESCRIPTION A. Received is one container labeled with the patient name and designated antrum biopsy for H. pylori and pathology. The specimen consists of one irregular fragment of light hinson soft tissue that measures 0.3 x 0.3 x 01 cm. The specimen is totally submitted in one cassette. B. Received is one container labeled with the patient name and designated GE junction biopsy. The specimen consists of two irregular fragments of light hinson soft tissue that measure in aggregate 0.5 x 0.2 x 0.1 cm. The specimen is totally submitted in one cassette. BILL:[email or web address] 01/03/18 TC: 3 CPT: 40085, 82569
--- NOTE | 2018-01-02 16:28 | CASEMGMT ---
Social Work: Spoke with Jennifer ROWE who states that patient has 6 prescriptions that are being filled by retail pharmacy and that patient states he cannot pay for them. RADHA Hester provided medicaid application to patient on Tuesday and advised patient that he will need to re apply. Spoke with Sandra in the retail pharmacy who states that the cost of the medications under the RX assistance program at [facility] will be $54.13. Patient is currently having a colonoscopy done and will not be able to tile picker the medications before 5:30pm which is what time the retail pharmacy closes. JAE Rodriguez spoke with patient's sewing machines salesperson Aurelia who will go to the retail pharmacy to tile picker medications. Oleksandr in pharmacy aware that patient's sewing machines salesperson Aurelia will sign for medications. CRISTIAN Eddy
--- NOTE | 2018-01-02 16:40 | OP.ENDO_ITS ---
Patient Name: Riaz Castle Procedure Date: 01/02/2018 4:13 PM Date of : 1965 Age: 52 Procedure: Upper GI endoscopy Indications: Suspected gastro-esophageal reflux disease Providers: Sudhir Pruitt MD Medicines: Monitored Anesthesia Care Patient Profile: This is a 52 year old male. Refer to note in patient chart for documentation of history and physical. Complications: No immediate complications. Procedure: Pre-Anesthesia Assessment: - Prior to the procedure, a History and Physical was performed, and patient medications and allergies were reviewed. The patient is competent. The risks and benefits of the procedure and the sedation options and risks were discussed with the patient. All questions were answered and informed consent was obtained. Patient identification and proposed procedure were verified by the physician, the nurse and the house calls nurse practitioner in the procedure room. Mental Status Examination: alert and oriented. Airway Examination: normal oropharyngeal airway and neck mobility. Respiratory Examination: clear to auscultation. CV Examination: normal. Prophylactic Antibiotics: The patient does not require prophylactic antibiotics. Prior Anticoagulants: The patient has taken no previous anticoagulant or antiplatelet agents. ASA Grade Assessment: III - A patient with severe systemic disease. After reviewing the risks and benefits, the patient was deemed in satisfactory condition to undergo the procedure. The anesthesia plan was to use monitored anesthesia care (MAC). Immediately prior to administration of medications, the patient was re-assessed for adequacy to receive sedatives. The heart rate, respiratory rate, oxygen saturations, blood pressure, adequacy of pulmonary ventilation, and response to care were monitored throughout the procedure. The physical status of the patient was re-assessed after the procedure. After obtaining informed consent, the endoscope was passed under direct vision. Throughout the procedure, the patient's blood pressure, pulse, and oxygen saturations were monitored continuously. The gastroscope was introduced through the mouth, and advanced to the jejunum. The upper GI endoscopy was accomplished without difficulty. The patient tolerated the procedure well. Scope In: 4:20:16 PM Scope Out: 4:23:57 PM Total Procedure Duration Time 0 hours 3 minutes 41 seconds Findings: The examined jejunum was normal. Diffuse severely erythematous mucosa without active bleeding and with no stigmata of bleeding was found in the duodenal bulb. Mild inflammation characterized by erosions and erythema was found in the gastric antrum. Biopsies were taken with a cold forceps for Helicobacter pylori testing using PyloriTek test. Biopsies were taken with a cold forceps for histology. Mildly severe esophagitis with no bleeding was found. Biopsies were taken with a cold forceps for histology. Multiple areas of ectopic gastric mucosa were found in the upper third of the esophagus. Impression: - Normal examined jejunum. - Erythematous duodenopathy. - Gastritis. Biopsied. - Mildly severe reflux esophagitis. Biopsied. Recommendation: - Await pathology results. - Return to my office in 1 week. - Continue present medications. Procedure Code(s): --- Professional --- 20313, Esophagogastroduodenoscopy, flexible, transoral; with biopsy, single or multiple CPT copyright 2017 [employer]. All rights reserved. The codes documented in this report are preliminary and upon guest laundry attendant review may be revised to meet current compliance requirements. Sudhir Pruitt MD 01/02/2018 4:40:36 PM This report has been signed electronically. Number of Addenda: 0 Note Initiated On: 01/02/2018 4:13 PM
--- NOTE | 2018-01-02 16:42 | OP.ENDO_ITS ---
Patient Name: Riaz Castle Procedure Date: 01/02/2018 4:25 PM Date of : 1965 Age: 52 Procedure: Colonoscopy Indications: Screening for colorectal malignant neoplasm Providers: Sudhir Pruitt MD Medicines: Monitored Anesthesia Care Patient Profile: This is a 52 year old male. Refer to note in patient chart for documentation of history and physical. Last Colonoscopy: none. The patient's first colonoscopy is today. Complications: No immediate complications. Procedure: Pre-Anesthesia Assessment: - Prior to the procedure, a History and Physical was performed, and patient medications and allergies were reviewed. The patient is competent. The risks and benefits of the procedure and the sedation options and risks were discussed with the patient. All questions were answered and informed consent was obtained. Patient identification and proposed procedure were verified by the physician, the nurse and the service station attendant in the procedure room. Mental Status Examination: alert and oriented. Airway Examination: normal oropharyngeal airway and neck mobility. Respiratory Examination: clear to auscultation. CV Examination: normal. Prophylactic Antibiotics: The patient does not require prophylactic antibiotics. Prior Anticoagulants: The patient has taken no previous anticoagulant or antiplatelet agents. ASA Grade Assessment: III - A patient with severe systemic disease. After reviewing the risks and benefits, the patient was deemed in satisfactory condition to undergo the procedure. The anesthesia plan was to use monitored anesthesia care (MAC). Immediately prior to administration of medications, the patient was re-assessed for adequacy to receive sedatives. The heart rate, respiratory rate, oxygen saturations, blood pressure, adequacy of pulmonary ventilation, and response to care were monitored throughout the procedure. The physical status of the patient was re-assessed after the procedure. After I obtained informed consent, the scope was passed under direct vision. Throughout the procedure, the patient's blood pressure, pulse, and oxygen saturations were monitored continuously. The Colonoscope was introduced through the anus and advanced to the cecum, identified by the appendiceal orifice, ileocecal valve and palpation. The colonoscopy was performed without difficulty. The patient tolerated the procedure well. The quality of the bowel preparation was good. Scope In: 4:27:09 PM Scope Withdrawal Time 0 hours 4 minutes 42 seconds Scope Out: 4:35:18 PM Total Procedure Duration Time 0 hours 8 minutes 9 seconds Findings: The perianal and digital rectal examinations were normal. The entire examined colon appeared normal on direct and retroflexion views. Impression: - The entire examined colon is normal on direct and retroflexion views. - No specimens collected. Recommendation: - Discharge patient to home. - Resume regular diet. - Return to my office in 1 week. - Repeat colonoscopy in 10 years for screening purposes. - Continue present medications. Procedure Code(s): --- Professional --- 20608, Colonoscopy, flexible; diagnostic, including collection of specimen(s) by brushing or washing, when performed (separate procedure) CPT copyright 2017 [employer]. All rights reserved. The codes documented in this report are preliminary and upon cutter grind tool technician review may be revised to meet current compliance requirements. Sudhir Pruitt MD 01/02/2018 4:42:17 PM This report has been signed electronically. Number of Addenda: 0 Note Initiated On: 01/02/2018 4:25 PM
--- NOTE | 2018-01-02 18:54 | NURSING ---
PT STATES HE HAS NO RIDE HOME. PTS GF @ [facility]. STATES SHE BROUGHT THE BUS HERE & HE STATES HE WAS BROUGHT IN BY [employer]. SPOKE TO CHARGE NURSE REGARDING SAME & SHE STATES CAB VOUCHER AVAILABLE FOR THEM. TOLD PT [employer] WOULD MANAGER PACKAGE @ 1900 & THAT STAFF MEMBER WOULD HAVE TO SIGN VOUCHER FOR CAB. 1829 - PT & GF LEFT UNIT & DID NOT RETURN. WHEN HIS ROOM WAS CHECKED, HE HAD LEFT HIS DC INSTRUCTION PAPERS @ [facility].
== END 2018-01-02 19:05 | disposition home or self-care (01) | DRG 896 ==
LOC: ED 12-31 00:03 → ICU 12-31 00:28 → MS2 01-01 09:56
PROVIDERS: Internal Medicine; Surgery; Admitting Provider Internal Medicine; Emergency Provider Emergency Medicine; Family Provider Family Medicine; PCP Family Medicine; Visit Provider Hospitalist
PROC: 0DJD8ZZ Inspection of Lower Intestinal Tract, Via Natural or Artificial Opening Endoscopic (ICD-10-PCS; CPT 45378; principal; 2018-01-02 14:55)
DX: F10.239 Alcohol dependence with withdrawal, unspecified (principal); K85.20 Alcohol induced acute pancreatitis without necrosis or infection; K92.1 Melena; G40.89 Other seizures; Y90.6 Blood alcohol level of 120-199 mg/100 ml; F17.210 Nicotine dependence, cigarettes, uncomplicated; I10 Essential (primary) hypertension; E11.9 Type 2 diabetes mellitus without complications; F31.9 Bipolar disorder, unspecified; K29.70 Gastritis, unspecified, without bleeding; K21.0 Gastro-esophageal reflux disease with esophagitis; Z91.19 Patient's noncompliance with other medical treatment and regimen; Z59.0 Homelessness; F10.229 Alcohol dependence with intoxication, unspecified
CPT/HCPCS: 76705; 80053; 80307; 80320; 81001; 82607; 82746; 82962; 83690; 83735; 84100; 84484; 85014; 85018; 85025; 85027; 85610; 87086; 87088; 88305; 88342; 93005; 97802; 99285; J7030; J7120; A4216; G0480; J2405; J3490

== ENCOUNTER 2018-01-24 17:00 | Emergency (ER) | payer SELFPAY ==
[2018-01-24 17:02] VITALS: BP 131/78; PULSE 104; RESP 18; TEMP 36.6; O2SAT 96; BMI 26.9
--- NOTE | 2018-01-24 17:25 | ED.DCSUM_ITS ---
- ER Visit Summary Date of Service: 01/24/18 Chief Complaint: [] Suicidal threats to the police History of Present Illness: The patient is a 52 M [] he was brought in by police handcuffed. His history is different from police Indicates he had the police at his door they wanted to enter the house or talk to him he did not wish for them to come into his home as there is nothing wrong with him, so he barricaded himself into the home eventually police made access to his home when he indicates he was handcuffed and brought to the emergency department against as will. He denies homicidal suicidal ideation does admit to drinking a few beers cannot explain or describe why the police will come to his home to begin with Police report to staff that they received a phone call from girlfriend who lives in [place] that the patient had made suicidal threats to her over the phone, they went to the home to do a well check he would not open the door he then barricade himself behind the door, they talked him for extended period of time, and then eventually made access to the home when he verbalized the police that he would just prefer to finish his beer and shoot himself in the head, he indicates he does not have a gun he did not do anything to harm himself Indicates at one point time he was told he has bipolar disorder he was following up with the counseling center locally, however he stopped going there he is on no medications, he has no recollection of saying to the police that he was going to shoot himself he denies saying that, he denies being suicidal or homicidal he has no complaints of any kind he simply wants to go home Extend all the above to him he is resting in the bed comfortably his vital signs are normal he is awake and alert given the concerns expressed by the girlfriend and the police he is willing to undergo the mental health assessment and to cooperate with blood draw and urinalysis Physical Examination: [] 131/70 General, no distress resting comfortably HEENT is generally unremarkable The neck is supple no adenopathy Cardiovascular, regular rate and rhythm Lungs, clear bilateral Abdomen, soft nontender Extremities, no clubbing cyanosis or edema Neurologic, awake alert answering questions appropriately moving all 4 extremities Test Results: [] Emergency Department Course and Treatment: [] This time he is cooperative he insists there is nothing wrong with him and he has no complaints we will proceed with a mental health evaluation his disposition will be evaluated and determined once mental health seeing him, mental health screening labs will be on the computer when they are available Treatment Plan: [] Patient's screening labs are generally unremarkable except his alcohol came back at about 380 he remains awake and alert he is concerned about withdrawing so has been treated with Ativan phenobarbital, the mental health team will come back and reevaluate him in the morning we will repeat his alcohol level in a few hours, they would like alcohol level below 100 before they can complete their assessment Disposition: [] Pending mental health evaluation Impression: [] Reported suicidal threats, alcohol use, reported history for bipolar disorder This note was generated with [employer] dictation software. It may contain incorrect words, spelling, and punctuation that were not noted in review of the chart prior to signing ED Disposition - Plan for ED Patient: Chief Complaint: Suicidal Referrals: Edison Shannon MD [Primary Care Provider] -
[2018-01-24 18:16] LABS: Anion Gap 9 (5-15); BUN 8 mg/dL (7-18); BUN/Creat Ratio 8.9 RATIO (10-20); Calcium,Total 8.6 mg/dL (8.5-10.1); Chloride 114 mmol/L (98-107); EST Glomerular Filtration Rate 94 mL/min (>60); Est Glom Filt Rate - Afr Amer 114 mL/min (>60); Glucose 74 mg/dL (74-106); Potassium 3.4 mmol/L (3.5-5.1); Sodium Level 145 mmol/L (136-145)
[2018-01-24 18:21] LABS: Absolute Lymphocyte Count 3.07 X10^3/ul (0.83-4.51); Basophil# 0.07 X10^3/uL; Basophil% 0.6 % (0-1); Eosinophil# 0.21 X10^3/uL; Eosinophils% 1.9 % (0-5); Hematocrit 51.5 % (40-54); Hemoglobin 17.7 g/dl (13.0-16.5); Lymphocyte # 3.07 X10^3/ul (4.0); Lymphocyte % 28.2 % (19-41); Mean Corp Hgb Conc 34.4 g/gl (32-36); Mean Corpuscular Hgb 33.1 pg (27.0-32.0); Mean Corpuscular Volume 96.3 fL (80-94); Mean Platelet Vol. 9.4 fl (6.2-12.0); Monocyte# 0.48 X10^3/uL; Monocyte% 4.4 % (0-10); Neutrophil # 7.04 X10^3/uL (2.7-7.7); Neutrophil % 64.6 % (47-70); Platelet Count 259 K/mm3 (150-450); RBC Distribution Width CV 14.6 % (11.6-14.6); RBC Distribution Width SD 51.9 fl (35.1-43.9); Red Blood Count 5.35 M/mm3 (4.6-6.2); White Blood Count 10.9 K/mm3 (4.4-11.0)
[2018-01-24 18:22] LABS: POSITIVE COUNT NO; POSITIVE DIFFERENTIAL NO; POSITIVE MORPHOLOGY NO
[2018-01-24 20:14] VITALS: BP 162/90; PULSE 98; RESP 15; O2SAT 98
[2018-01-24 20:38] LABS: Amphetamine Urine VISTA NEGATIVE (<1000 ng/mL); Barbiturate Urine VISTA NEGATIVE (< 200 ng/mL); Benzodiazepine Urine VISTA NEGATIVE (< 200 ng/mL); Cocaine Urine VISTA NEGATIVE (< 300 ng/mL); Ecstacy Urine VISTA NEGATIVE (< 500 ng/mL); Methadone Urine VISTA NEGATIVE (< 300 ng/mL); PCP Urine VISTA NEGATIVE (< 25 ng/mL); THC Urine VISTA POSITIVE (< 50 ng/mL); Vista UDS pH Range 6
[2018-01-24] MEDS: LORazepam 1 MG Tablet 2 MG PO ×2 (21:30→22:35)
--- NOTE | 2018-01-24 22:20 | ED.RN ---
THIS NURSE SPOKE WITH DR ESTEVES REFERENCE PHENOBARBITAL ORDER. ORDER CHANGED. THIS NURSE SPOKE WITH SAMI IN THE PHARMACY ABOUT THE SAME ORDER
[2018-01-24] MEDS: Phenobarbital 32.4 MG Tablet 194.4 MG PO (22:35)
[2018-01-24 22:41] VITALS: BP 140/91; PULSE 120; RESP 18
[2018-01-24] MEDS: LORazepam 2 MG/ML Syringe IV (23:09)
[2018-01-25 01:16] VITALS: BP 120/81; PULSE 107; RESP 18; O2SAT 93
[2018-01-25 04:00] VITALS: BP 144/93; PULSE 117; RESP 17; O2SAT 96
--- NOTE | 2018-01-25 05:26 | ED.RN ---
see downtime charting from 0200 to 0300.
[2018-01-25 06:44] VITALS: BP 149/99; PULSE 106; RESP 18; O2SAT 91
[2018-01-25 07:57] VITALS: BP 148/99; PULSE 71; RESP 16; O2SAT 96
== END 2018-01-25 08:01 | disposition home or self-care (01) ==
PROVIDERS: Emergency Provider Emergency Medicine; Family Provider Family Medicine; PCP Family Medicine
DX: R45.851 Suicidal ideations (principal); I10 Essential (primary) hypertension; F10.20 Alcohol dependence, uncomplicated
CPT/HCPCS: 80048; 80307; 80320; 85025; 96374; 99284; A4216; G0480

== ENCOUNTER 2018-01-27 19:10 | Inpatient (IN) | payer SELFPAY ==
[2018-01-27 19:11] VITALS: BP 206/113; PULSE 139; RESP 22; TEMP 36.4; O2SAT 99; BMI 28.8
--- NOTE | 2018-01-27 19:22 | EKG12_ITS ---
Test Reason : GEN ILLNESS Blood Pressure : / mmHG Vent. Rate : 136 BPM Atrial Rate : 138 BPM P-R Int : 112 ms QRS Dur : 098 ms QT Int : 374 ms P-R-T Axes : 000 052 062 degrees QTc Int : 562 ms Sinus tachycardia Nonspecific ST and T wave abnormality Abnormal ECG Confirmed by TOBIN MAKI, ROBERT ([id number]), slot editor YAZMIN COREY ([id number]) on 01/30/2018 1:57:17 PM Referred By: MR Confirmed By:ROBERT RUDD MD
--- NOTE | 2018-01-27 19:22 | CT_ITS ---
STUDY: CT BRAIN WITHOUT CONTRAST REASON FOR EXAM: Male, 52 years old. Altered mental status. Violent tremors. RADIATION DOSAGE (If Supplied By Facility): CTDIvol = ( 44.99 ) mGy, DLP = ( 1592.22 ) mGycm TECHNIQUE: Transaxial CT imaging of the brain was performed without administration of intravenous contrast material. Individualized dose optimization techniques were used for this CT. COMPARISON: April 06, 2016. FINDINGS: Normal soft tissue structures. Normal calvarium. Evaluation of the brain is limited due to motion artifact despite repeat PET of the exam. Normal size ventricles and extra-axial spaces for the patient's age. Normal white matter tracts of the cerebral hemispheres. Normal basal ganglia and thalami. Normal brainstem. Normal cerebellum. There is no intracranial hemorrhage. There are no findings of an acute ischemic infarction. Normal visualized paranasal sinuses. CT/Brain/Head without Contrast IMPRESSION: Mildly limited study due to motion artifact. There is no visualized intracranial or calvarial abnormality. There is no major interval change. Electronically Signed: Ronn Connolly DO at 20:07 EST Tel [phone], Service support ,
[2018-01-27] MEDS: 0.9% Normal Saline 1,000 ML 1000 ML IV (19:34)
[2018-01-27] MEDS: LORazepam 2 MG/ML Syringe 1 MG IV ×2 (19:34→21:45)
--- NOTE | 2018-01-27 19:35 | RAD_ITS ---
STUDY: X-RAY CHEST REASON FOR EXAM: Male, 52 years old. Arrhythmia. Tremors. Alcoholism. History of CVA and seizures. TECHNIQUE: Single AP portable view of the chest. COMPARISON: August 09, 2017. FINDINGS: Telemetry wires overlie the chest. The lungs are hyperexpanded. There is no new infiltrate or mass. There is no demonstrated pleural abnormality. Normal size heart. Normal mediastinum and bridget. Normal visualized pulmonary arteries. Normal visualized aortic arch and descending thoracic aorta. There are diffuse degenerative changes of the visualized thoracic spine. There is degenerative osteoarthritis of the bilateral shoulders. There is no demonstrated abnormality of the visualized soft tissue structures of the upper abdomen. RAD/Chest 1 View (Portable) IMPRESSION: No acute cardiopulmonary disease or interval change. Electronically Signed: Ronn Connolly DO at 19:56 EST Tel [phone], Service support ,
[2018-01-27 19:51] LABS: Absolute Neutrophil Count 8.4 X10^3/uL (2.0-7.7); Basophil# 0.04 X10^3/uL; Basophil% 0.3 % (0-1); Hematocrit 45.1 % (40-54); Hemoglobin 15.6 g/dl (13.0-16.5); Lymphocyte % 20.8 % (19-41); Mean Corp Hgb Conc 34.6 g/gl (32-36); Mean Corpuscular Hgb 32.7 pg (27.0-32.0); Mean Corpuscular Volume 94.5 fL (80-94); Mean Platelet Vol. 9.1 fl (6.2-12.0); Monocyte# 0.72 X10^3/uL; Monocyte% 6.2 % (0-10); Neutrophil # 8.39 X10^3/uL (2.7-7.7); Neutrophil % 72.6 % (47-70); POSITIVE COUNT NO; POSITIVE DIFFERENTIAL NO; POSITIVE MORPHOLOGY NO; Platelet Count 266 K/mm3 (150-450); RBC Distribution Width CV 14.7 % (11.6-14.6); RBC Distribution Width SD 51.1 fl (35.1-43.9); Red Blood Count 4.77 M/mm3 (4.6-6.2); White Blood Count 11.6 K/mm3 (4.4-11.0)
[2018-01-27 20:04] LABS: ALB/GLOB Ratio 1.1 RATIO (0.9-2.4); AST(SGOT) 19 U/L (15-37); Alanine Aminotransfer ALT/SGPT 27 U/L (16-61); Albumin, Serum 4.1 g/dL (3.2-5.0); Alkaline Phosphatase 75 U/L (45-117); Anion Gap 11 (5-15); BUN 6 mg/dL (7-18); BUN/Creat Ratio 2.3 RATIO (10-20); Calcium,Total 8.7 mg/dL (8.5-10.1); Chloride 105 mmol/L (98-107); Creatinine, Serum 2.57 mg/dL (0.70-1.30); EST Glomerular Filtration Rate 28 mL/min (>60); Est Glom Filt Rate - Afr Amer 34 mL/min (>60); Estimated Creatinine Clearance 34.01 ml/min; Globulin 3.8 g/dL (2.2-4.2); Glucose 104 mg/dL (74-106); Potassium 3.5 mmol/L (3.5-5.1); Protein, Total 7.9 g/dL (6.4-8.2); Sodium Level 141 mmol/L (136-145)
[2018-01-27 20:05] VITALS: BP 143/74; PULSE 119; RESP 18; O2SAT 94
[2018-01-27 20:11] LABS: Alcohol, Blood (Medical)-Serum < 3.0 mg/dL
[2018-01-27 21:28] VITALS: BP 156/106; PULSE 112; RESP 24; O2SAT 95
[2018-01-27] MEDS: 0.9% Normal Saline 1,000 ML 999 ML IV ×2 (21:45→22:19)
[2018-01-27 22:30] VITALS: BP 135/72; PULSE 80; RESP 18; TEMP 36.7; O2SAT 99
--- NOTE | 2018-01-27 22:40 | PCM.HP.STD ---
Problem List (1) Alcohol withdrawal Status: Acute Qualifiers: Complication of substance-induced condition: with delirium Qualified Code(s): F10.231 - Alcohol dependence with withdrawal delirium (2) DM type 2 (diabetes mellitus, type 2) Status: Chronic Qualifiers: Diabetes mellitus [facility] insulin use: without [facility] use Diabetes mellitus complication status: without complication Qualified Code(s): E11.9 - Type 2 diabetes mellitus without complications (3) Bipolar 1 disorder Status: Chronic (4) Continuous chronic alcoholism Status: Chronic Comment: up to 1 gallon vodka daily (5) Benign essential hypertension Status: Chronic History of Present Illness Date of Admission: 01/27/18 Chief Complaint: Tremor and not feeling good The patient is a 52 year old M with PMH as below presenting with not feeling well and shaking. He says that since his previous discharge in December he has been drinking about 1/2 gallon of vodka a day and his last drink was a day or so ago. He denies any nausea or vomiting, abdominal pain, fevers, chills, lightheadedness, dizziness, chest pain however in the ER he did present with an acute kidney injury. His creatinine on admission was 2.57, his baseline is between 0.8 and 1. He was given a 1 L bolus done in the ED. He states that he has no intention of abstaining from alcohol use. CT head was negative as was chest x-ray. He states that usually when he gets tremors like this he is going through withdrawal. Currently denies any hallucinations. The last time he was admitted with withdrawal he was intubated in the ICU. Past Medical History Past Medical History (Chronic Problems): Chronic Problems Alcohol withdrawal delirium, acute, hyperactive (Chronic) DM type 2 (diabetes mellitus, type 2) (Chronic) Bipolar 1 disorder (Chronic) History of kidney stones (Chronic) Continuous chronic alcoholism (Chronic) up to 1 gallon vodka daily Tobacco use (Chronic) Psychiatric pseudoseizure (Chronic) Homelessness (Chronic) Benign essential hypertension (Chronic) Allergies amoxicillin [Amoxicillin] Allergy (Verified 01/27/18 19:15) Anaphylaxis Penicillins Allergy (Verified 01/27/18 19:15) Anaphylaxis Home Medications: Ambulatory Orders Medication Instructions Recorded NK 01/27/18 Surgical History: no surgical history Smoking Status: Current every day smoker Tobacco Use: Cigarettes Alcohol: Heavy Drugs: None - *Family History Maternal History Items: No pertinent history Paternal History Items: No pertinent history Sibling History Items: No pertinent history Review of Systems Constitutional: Reports: Malaise. Denies: Chills, Fever, Weight Change HEENT: Denies: Head Aches, Sinus Congestion, Sinus Drainage Cardiovascular: Denies: Chest Pain, Palpitations Respiratory: Denies: Cough, Shortness of breath at rest, Sputum production Gastrointestinal: Denies: Abdominal Pain, Nausea, Vomiting Genitourinary: Denies: Dysuria Musculoskeletal: Denies: Joint Pain, Joint Tenderness Skin: Denies: Rash, Wounds Neurological: Reports: Tremor. Denies: Focal weakness, Numbness, Tingling Psychiatric: Denies: Anxiety, Depression Hematologic/ Lymphatic: Denies: Easy Bruising, Easy Bleeding VTE Information - Inpt Only VTE Present on Admission: No - Physical Exam General: Alert, Oriented x3, - - Violent tremor HEENT: Atraumatic, PERRLA, EOMI, Normocephalic Oral: Dry Mucosa Neck: Supple, No JVD Lungs: Clear to auscultation, Normal air movement, No rhonchi, No wheeze, No rales Cardiovascular: Regular rate, Regular Rhythm, Normal S1, Normal S2, No murmurs Abdomen: Soft, Non Tender, Non-Distended, No Hepato-splenomegaly Extremities: No edema, Capillary Refill Less than 3 Seconds Skin: No rashes, No breakdown Neurological: Neuro grossly intact, Sensory exam intact to light touch and pain Psych/Mental Status: Agitated, Anxious, Restless Vital Signs Temp Pulse Resp BP Pulse Ox 97.6 F L 112 H 24 H 156/106 H 95 01/27/18 19:11 01/27/18 21:28 01/27/18 21:28 01/27/18 21:28 01/27/18 21:28 Oxygen Delivery Method Room Air Weight: 195 lb Body Mass Index (BMI) 28.8 Finger Stick Blood Glucose 98 Laboratory Tests Past 24 Hrs 01/27/18 01/27/18 01/27/18 19:25 19:25 19:25 WBC 11.6 H RBC 4.77 Hgb 15.6 Hct 45.1 MCV 94.5 H MCH 32.7 H MCHC 34.6 RDW 14.7 H RDW Differential 51.1 H Plt Count 266 MPV 9.1 Immature Gran % (Auto) 0.100 Neut % (Auto) 72.6 H Lymph % (Auto) 20.8 [place] % (Auto) 6.2 Eos % (Auto) 0.0 Baso % (Auto) 0.3 Absolute Neuts (auto) 8.4 H Absolute Lymphs (auto) 2.40 Total Counted Not Reportable Sodium 141 Potassium 3.5 Chloride 105 Carbon Dioxide 25.0 Anion Gap 11 BUN 6 L Creatinine 2.57 H Estim Creat Clear Calc 34.01 Est GFR (MDRD) Af Amer 34 L Est GFR (MDRD) Non-Af 28 L BUN/Creatinine Ratio 2.3 L Glucose 104 Calcium 8.7 Total Bilirubin 0.40 AST 19 ALT 27 Alkaline Phosphatase 75 Troponin I 0.019 Total Protein 7.9 Albumin 4.1 Globulin 3.8 Albumin/Globulin Ratio 1.1 Ethyl Alcohol < 3.0 Assessment/Plan All Active Problems Alcohol withdrawal (Acute) Upper GI bleed (Acute) 1. Alcohol withdrawal/OSMANI/H/o GI bleed - He states that he is drinking a half gallon of vodka a day - He stopped a day or so ago because he is out of money - Will continue to aggressively hydrate NS@125 - Will provide Beer or EtOH since he has no intention of quitting - Ativan 2 mg IV q1-2 hrs PRN - Will provide protonix given his recent GI bleed 2. HTN/EtOH abuse and withdrawal seizure - He was hypertensive and this has improved with IVF - He does not take any medications at home - He has been discharged with medications on his last visit including atenolol, norvasc, protonix, seroquel, keppra, which he does not take and has not filled DVT: Heparin/SCDs Code Visit Inpatient E&M: 46450 Init Hosp L3
[2018-01-27 23:08] VITALS: BMI 29.2
--- NOTE | 2018-01-27 23:08 | EKG12_ITS ---
Test Reason : CP Blood Pressure : / mmHG Vent. Rate : 111 BPM Atrial Rate : 111 BPM P-R Int : 156 ms QRS Dur : 102 ms QT Int : 338 ms P-R-T Axes : 077 032 117 degrees QTc Int : 459 ms Sinus tachycardia Incomplete right bundle branch block Nonspecific T wave abnormality Abnormal ECG When compared with ECG of 27-JAN-2018 19:34, MANUAL COMPARISON REQUIRED, DATA IS UNCONFIRMED Confirmed by TOBIN MAKI, ROBERT ([id number]), editorial director YAZMIN COREY ([id number]) on 01/31/2018 9:05:51 AM Referred By: BON Confirmed By:ROBERT RUDD MD
[2018-01-27 23:10] VITALS: BMI 29.3
[2018-01-27 23:21] LABS: Bedside Glucose 98 mg/dL (70-110)
[2018-01-27 23:50] VITALS: PULSE 128
[2018-01-28] VITALS (20 sets, daily range): BP systolic 93–142; BP diastolic 60–97; PULSE 62–112; RESP 8–29; TEMP 36.7–37.3; O2SAT 92–98
--- NOTE | 2018-01-28 00:07 | ED.VISSUMM ---
- ER Visit Summary Date of Service: 01/28/18 Chief Complaint: I am having a bad day History of Present Illness: The patient is a 52 M presenting for evaluation secondary to saying that he is having a bad day. Patient has an underlying history of diabetes hypertension, alcohol abuse with recent admission to the hospital for withdrawal. Patient states that today he started to have a bad day. He is really unable to further characterize this for me. Review of systems is otherwise negative. Physical Examination: Vital signs are notable for a blood pressure 206 115, heart rate of 139. Well-nourished male visibly anxious and with intentional tremor but otherwise not physiologic distress. Patient has nasal abrasion. Moist mucous membranes. Neck is supple. Heart was tachycardic and regular. Lungs are clear. Abdomen soft nontender. Extremities nontender nonedematous. Skin: No rash. Patient was alert and oriented x3 and exhibited no lateralizing neurologic deficits. Test Results: Laboratory workup is remarkable for creatinine of 2.5 with a baseline of 0.7. EKG shows sinus tachycardia with a rate of 112 no ischemic changes. Chest x-ray and brain CT are negative. Emergency Department Course and Treatment: Patient presented secondary to a bad day. Broad workup was obtained, as the patient does have a history of alcohol abuse. His physical exam is exhibited that he had a nasal abrasion so there was at least some concern for the possibility of trauma. CT brain was negative, chest x-ray negative, laboratory workup was negative except for showing the patient to have acute renal insufficiency with a new creatinine of 2.5. BUN is not significantly elevated making the likelihood of a obstructive etiology less likely. Patient was given IV hydration and Ativan. Patient will be admitted. Disposition: Admission Impression: 1. Dehydration This note was generated with [employer] dictation software. It may contain incorrect words, spelling, and punctuation that were not noted in review of the chart prior to signing ED Disposition - Plan for ED Patient: Disposition: Acute Care Hospital [facility] Chief Complaint: General Illness
--- NOTE | 2018-01-28 00:11 | ED.DCSUM_ITS ---
- ER Visit Summary Date of Service: 01/28/18 Chief Complaint: I am having a bad day History of Present Illness: The patient is a 52 M presenting for evaluation secondary to saying that he is having a bad day. Patient has an underlying history of diabetes hypertension, alcohol abuse with recent admission to the hospital for withdrawal. Patient states that today he started to have a bad day. He is really unable to further characterize this for me. Review of systems is otherwise negative. Physical Examination: Vital signs are notable for a blood pressure 206 115, heart rate of 139. Well-nourished male visibly anxious and with intentional tremor but otherwise not physiologic distress. Patient has nasal abrasion. Moist mucous membranes. Neck is supple. Heart was tachycardic and regular. Lungs are clear. Abdomen soft nontender. Extremities nontender nonedematous. Skin: No rash. Patient was alert and oriented x3 and exhibited no lateralizing neurologic deficits. Test Results: Laboratory workup is remarkable for creatinine of 2.5 with a b aseline of 0.7. EKG shows sinus tachycardia with a rate of 112 no ischemic changes. Chest x-ray and brain CT are negative. Emergency Department Course and Treatment: Patient presented secondary to a bad day. Broad workup was obtained, as the patient does have a history of alcohol abuse. His physical exam is exhibited that he had a nasal abrasion so there was at least some concern for the possibility of trauma. CT brain was negative, chest x-ray negative, laboratory workup was negative except for showing the patient to have acute renal insufficiency with a new creatinine of 2.5. BUN is not significantly elevated making the likelihood of a obstructive etiology less likely. Patient was given IV hydration and Ativan. Patient will be admitted. Disposition: Admission Impression: 1. Dehydration This note was generated with [email or web address] dictation software. It may contain incorrect words, spelling, and punctuation that were not noted in review of the chart prior to signing ED Disposition - Plan for ED Patient: Disposition: Acute Care Hospital [facility] Chief Complaint: General Illness
[2018-01-28] MEDS: Heparin Injection (Vial) 5,000 UNIT/ML VIAL 5000 UNIT SC ×2 (00:31→10:31)
[2018-01-28] MEDS: 0.9% Normal Saline 1,000 ML 125 ML IV ×3 (00:32→17:25)
[2018-01-28] MEDS: LORazepam 2 MG/ML Syringe IV ×4 (00:32→11:38)
[2018-01-28 00:36] LABS: Bacteria 0 SEEN /hpf (None Seen); Mucous, Urine 0 SEEN /hpf (<or=2+)
[2018-01-28 00:39] LABS: Color, Urine Yellow (Yellow); Glucose, Dipstick Normal (Normal); Ketone-Dipstick 50 mg/dl (Negative); Leukocyte Esterase-Dipstick Negative /ul (Negative); Nitrite-Dipstick Negative (Negative); Occult Blood-Urine 25 /ul (Negative); Protein-Dipstick 15 mg/dl (Negative); Urine Bilirubin Dipstick Negative (Negative); Urine Clarity Clear (Clear); Urine Urobilinogen Normal (Normal)
[2018-01-28 00:49] LABS: Squamous Epithelial Cells - UA 0-5 SEEN /hpf (0-5)
[2018-01-28 00:51] LABS: Red Blood Cells-Urine 0-5 SEEN /hpf (0-5); Transitional Epithelial - Ur 0-5 SEEN /hpf (0-5); White Blood Cells 0-5 SEEN /hpf (0-5)
[2018-01-28 06:25] LABS: Absolute Lymphocyte Count 1.94 X10^3/ul (0.83-4.51); Absolute Neutrophil Count 4.1 X10^3/uL (2.0-7.7); Basophil# 0.05 X10^3/uL; Basophil% 0.8 % (0-1); Eosinophil# 0.04 X10^3/uL; Eosinophils% 0.6 % (0-5); Hematocrit 36.8 % (40-54); Hemoglobin 12.6 g/dl (13.0-16.5); Lymphocyte # 1.94 X10^3/ul (4.0); Lymphocyte % 29.6 % (19-41); Mean Corp Hgb Conc 34.2 g/gl (32-36); Mean Corpuscular Hgb 33.1 pg (27.0-32.0); Mean Corpuscular Volume 96.6 fL (80-94); Mean Platelet Vol. 9.3 fl (6.2-12.0); Monocyte# 0.37 X10^3/uL; Monocyte% 5.6 % (0-10); Neutrophil # 4.14 X10^3/uL (2.7-7.7); Neutrophil % 63.2 % (47-70); Platelet Count 169 K/mm3 (150-450); RBC Distribution Width CV 14.8 % (11.6-14.6); RBC Distribution Width SD 50.3 fl (35.1-43.9); Red Blood Count 3.81 M/mm3 (4.6-6.2); White Blood Count 6.6 K/mm3 (4.4-11.0)
[2018-01-28 06:29] LABS: POSITIVE COUNT NO; POSITIVE DIFFERENTIAL NO; POSITIVE MORPHOLOGY NO
[2018-01-28] MEDS: 0.9% NaCl Peripheral Flush Adult/Peds IV ×2 (06:31→11:38)
[2018-01-28 06:48] LABS: Anion Gap 6 (5-15); BUN 5 mg/dL (7-18); BUN/Creat Ratio 2.7 RATIO (10-20); Calcium,Total 7.7 mg/dL (8.5-10.1); Chloride 112 mmol/L (98-107); Creatinine, Serum 1.84 mg/dL (0.70-1.30); EST Glomerular Filtration Rate 41 mL/min (>60); Est Glom Filt Rate - Afr Amer 50 mL/min (>60); Glucose 86 mg/dL (74-106); Potassium 4.4 mmol/L (3.5-5.1); Sodium Level 141 mmol/L (136-145)
[2018-01-28 08:10] LABS: Amylase 38 U/L (25-115); Lipase 143 U/L (73-393)
[2018-01-28] MEDS: Folic Acid 1 MG Tablet PO (08:34)
[2018-01-28] MEDS: chlordiazePOXIDE 25 MG Capsule 50 MG PO ×2 (08:34→11:37)
[2018-01-28] MEDS: Multivitamins,Therapeutic Tablet 1 TABLET PO (08:35)
[2018-01-28 09:02] LABS: Amphetamine Urine VISTA NEGATIVE (<1000 ng/mL); Barbiturate Urine VISTA POSITIVE (< 200 ng/mL); Benzodiazepine Urine VISTA NEGATIVE (< 200 ng/mL); Cocaine Urine VISTA NEGATIVE (< 300 ng/mL); Ecstacy Urine VISTA NEGATIVE (< 500 ng/mL); Methadone Urine VISTA NEGATIVE (< 300 ng/mL); PCP Urine VISTA NEGATIVE (< 25 ng/mL); THC Urine VISTA POSITIVE (< 50 ng/mL); Vista UDS pH Range 6
[2018-01-28] MEDS: LORazepam 2 MG/ML Syringe 1 MG IV ×2 (09:11→10:18)
[2018-01-28] MEDS: Thiamine Hydrochloride 100 MG Tablet PO (10:28)
--- NOTE | 2018-01-28 11:10 | PN_ITS ---
Subjective: The patient was admitted yesterday with acute alcohol withdrawal symptoms, tremors, sinus tachycardia and visual hallucination. But in the morning today and symptoms got worse with confusion, restlessness, visual, auditory and tactile hallucinations. Patient was given IV Ativan and Librium but did not respond well therefore is being transferred to ICU for IV Precedex drip. Vitals/I&O's: Vital Signs Temp Pulse Resp BP Pulse Ox 98.2 F 105 H 18 124/69 H 94 01/28/18 08:12 01/28/18 08:12 01/28/18 08:12 01/28/18 08:12 01/28/18 08:12 Oxygen Delivery Method Room Air Weight: 198 lb 6.656 oz Body Mass Index (BMI) 29.2 Finger Stick Blood Glucose 98 Intake and Output for Last 24 Hours 01/26/18 01/27/18 01/28/18 23:59 23:59 23:59 Intake Total 959 / 959 Balance 959 / 959 General: Alert, Cooperative, Confused, - - Oriented to place and person Restless and trying to move around HEENT: Atraumatic, PERRLA, EOMI, Normocephalic Neck: Supple, No JVD, Negative Carotid Bruits Lungs: No rhonchi, No wheeze, No rales, Diminished - Air entry diminished in bilateral lung bases Cardiovascular: Regular rate, No murmurs Abdomen: Bowel Sounds Present, Soft, Non Tender, Non-Distended Extremities: No edema, Capillary Refill Less than 3 Seconds Skin: No rashes, No breakdown Musculoskeletal: No Tenderness to Palpation of Joints or Extremities, Arthritic Changes, Muscle Wasting Neurological: Cranial nerves II-XII grossly intact, Deep Tendon Reflexes 2+/4 and Symmetrical, Neuro grossly intact, Motor Exam 5/5 strength throughout Psych/Mental Status: Normal Affect, Appropriate Laboratory Results 01/27/18 19:25: WBC 11.6 H, RBC 4.77, Hgb 15.6, Hct 45.1, MCV 94.5 H, MCH 32.7 H , MCHC 34.6, RDW 14.7 H, RDW Differential 51.1 H, Plt Count 266, MPV 9.1, Immature Gran % (Auto) 0.100, Neut % (Auto) 72.6 H, Lymph % (Auto) 20.8, [place] % (Auto) 6.2, Eos % (Auto) 0.0, Baso % (Auto) 0.3, Absolute Neuts (auto) 8.4 H, Absolute Lymphs (auto) 2.40, Total Counted Not Reportable 01/27/18 19:25: Sodium 141, Potassium 3.5, Chloride 105, Carbon Dioxide 25.0, Anion Gap 11, BUN 6 L, Creatinine 2.57 H, Estim Creat Clear Calc 34.01, Est GFR (MDRD) Af Amer 34 L, Est GFR (MDRD) Non-Af 28 L, BUN/Creatinine Ratio 2.3 L, Glucose 104, Calcium 8.7, Total Bilirubin 0.40, AST 19, ALT 27, Alkaline Phosphatase 75, Troponin I 0.019, Total Protein 7.9, Albumin 4.1, Globulin 3.8, Albumin/Globulin Ratio 1.1 01/27/18 19:25: Ethyl Alcohol < 3.0 01/27/18 23:16: POC Glucose 98 01/28/18 00:30: Urine Color Yellow, Urine Clarity Clear, Urine pH 7.0, Ur Specific [place] 1.010, Urine Protein 15 H, Urine Glucose (UA) Normal, Urine Ketones 50 H, Urine Occult Blood 25 H, Urine Nitrite Negative, Urine Bilirubin Negative, Urine Urobilinogen Normal, Ur Leukocyte Esterase Negative, Urine RBC 0-5 SEEN, Urine WBC 0-5 SEEN, Ur Squamous Epith Cells 0-5 SEEN, Ur Transition Epith Cell 0-5 SEEN, Urine Bacteria 0 SEEN, Urine Mucus 0 SEEN 01/28/18 06:10: Sodium 141, Potassium 4.4, Chloride 112 H, Carbon Dioxide 23.0, Anion Gap 6, BUN 5 L, Creatinine 1.84 H, Estim Creat Clear Calc 47.50, Est GFR (MDRD) Af Amer 50 L, Est GFR (MDRD) Non-Af 41 L, BUN/Creatinine Ratio 2.7 L, Glucose 86, Calcium 7.7 L 01/28/18 06:10: WBC 6.6, RBC 3.81 L, Hgb 12.6 L, Hct 36.8 L, MCV 96.6 H, MCH 33.1 H, MCHC 34.2, RDW 14.8 H, RDW Differential 50.3 H, Plt Count 169, MPV 9.3, Immature Gran % (Auto) 0.200, Neut % (Auto) 63.2, Lymph % (Auto) 29.6, [place] % (Auto) 5.6, Eos % (Auto) 0.6, Baso % (Auto) 0.8, Absolute Neuts (auto) 4.1, Absolute Lymphs (auto) 1.94, Total Counted Not Reportable 01/28/18 06:10: Amylase 38, Lipase 143 01/28/18 08:35: Urine Opiates Screen NEGATIVE, Urine Methadone Screen NEGATIVE, Ur Barbiturates Screen POSITIVE H, Ur Phencyclidine Scrn NEGATIVE, Ur Amphetamines Screen NEGATIVE, U Methamphetamin-MDMA NEGATIVE, U Benzodiazepines Scrn NEGATIVE, Urine Cocaine Screen NEGATIVE, U Cannabinoids Screen POSITIVE H, Ur Drug Screen Comment Current Medications Acetaminophen (Tylenol) 500 mg PO Q4H PRN PRN PRN Reason: Temp > 100.4 F Chlordiazepoxide (Librium) 50 mg PO Q6H [facility]; Taper Stop: 01/31/18 09:59 Last Admin: 01/28/18 08:34 Dose: 50 mg Dextrose (D50w Syringe) 0 gm IV X1 PRN; Protocol PRN Reason: Hypoglycemia Dicyclomine HCl (Bentyl) 20 mg PO Q6H PRN PRN PRN Reason: abdominal discomfort Folic Acid (Folic Acid) 1 mg PO DAILYCM [facility] Last Admin: 01/28/18 08:34 Dose: 1 mg Glucagon () 1 mg IM .X1 PRN PRN Reason: Hypoglycemia Heparin Sodium (Porcine) (Heparin Na) 5,000 unit SC Q12 [facility] Last Admin: 01/28/18 10:31 Dose: 5,000 unit Hydroxyzine Pamoate (Vistaril Pamoate Capsule) 50 mg PO Q6H PRN PRN PRN Reason: Mild Anxiety (score 1/3) Sodium Chloride () 250 mls @ 15 mls/hr IV .[id number] PRN PRN Reason: SALINE FLUSH Sodium Chloride () 1,000 mls @ 125 mls/hr IV .Q8H [facility] Last Admin: 01/28/18 08:28 Dose: 125 mls/hr Pantoprazole Sodium 40 mg/ (Sodium Chloride) 110 mls @ 330 mls/hr IV Q24 [facility] Last Admin: 01/28/18 10:26 Dose: 330 mls/hr Loperamide HCl (Imodium) 2 - 4 mg PO UD PRN PRN Reason: LOOSE STOOLS Lorazepam (Ativan) 2 mg IV Q4H PRN PRN PRN Reason: Severe Anxiety Magnesium Hydroxide (Milk Of Magnesia) 30 ml PO DAILY PRN PRN Reason: Constipation Methocarbamol (Methocarbamol) 750 mg PO Q6H PRN PRN PRN Reason: Muscle Aches Multivitamins (Multivitamin) [facility] Last Admin: 01/28/18 08:35 Dose: 1 tablet Nicotine (Nicoderm Cq (Pbkc)) 21 mg TRANSDERM. DAILY [facility] Last Admin: 01/28/18 10:33 Dose: 21 mg Senna (Senokot) 1 tablet PO QHS PRN PRN Reason: Constipation Sodium Chloride () 5 - 15 ml IV UD PRN PRN Reason: SALINE FLUSH Last Admin: 01/28/18 06:31 Dose: 10 ml Thiamine HCl (Vitamin B1) 100 mg PO DAILYCM [facility] Last Admin: 01/28/18 10:28 Dose: 100 mg Trazodone HCl (Desyrel) 50 mg PO QHS [facility] Medical Necessity - Tobacco Use Smoking Status: Current every day smoker Tobacco Use: Cigarettes Assessment/Plan All Active Problems Alcohol withdrawal (Acute) Upper GI bleed (Acute) The patient is a 52 year old M with history of chronic alcohol use and dependence and recent admission in ICU for alcohol withdrawal came to ED with not feeling well and shaking, hallucinations suggestive of alcohol withdrawal. He says that since his previous discharge in December he has been drinking about 1/2 gallon of vodka a day and his last drink was a day before admission. In the ED, he was also found with acute kidney injury, hemoconcentration suggestive of prerenal etiology. He denies any nausea or vomiting, abdominal pain. His creatinine on admission was 2.57, his baseline is between 0.8 and 1. He was given a 1 L bolus done in the ED. He states that he has no intention of abstaining from alcohol use. CT head was negative as was chest x-ray. The patient continues to be tachycardic, hallucinating and tremor despite IV Ativan and Librium and therefore patient transferred to ICU. 1. Acute alcohol withdrawal syndrome with DT with history of chronic alcohol use and dependence: Today, his last CIWA scale documented at 8 AM was 9 but I think it is more patient got restless and agitated more about 11 AM. Patient is a started on IV Precedex drip and titrate to keep calm and quite but avoid deep sedation. Accounts Payable Specialist consult for further comanagement. K is 4.4. Follow electrolytes, magnesium and phosphorus and replace accordingly. Continue folic acid, thiamine and multivitamin. education general manager and [employer] consult. Continue IV fluid normal saline and Librium. 2. Diabetes mellitus type 2: Today, the blood sugar is 86 and BMP and 98 on Accu-Chek yesterday night. Avoid sliding scale insulin. Probably blood sugar is low secondary to alcoholic hepatitis. 3. History of recent GI bleed most probably from alcoholic hepatitis: Although last transaminases are normal limit, TB 0.4. Amylase and lipase are normal. Continue IV Protonix. The status of EGD is unclear as patient cannot give good history. Last right upper quadrant sonogram on 12/2017 shows hepatomegaly with fatty change. Previous labs in December 2017 shows lipase 464, elevated transaminases AST 59, ALT 72. Patient had EGD on 01/02/2013 which showed diffuse severe erythematous mucosa without active bleeding with no stigmata of bleeding found in duodenal bulb, erosive gastritis in antrum and mildly severe reflux esophagitis. 4. 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 Multiple comorbidities complicates the present care and expect difficult and delay recovery. Prognosis is guarded. DVT prophylaxis: Bilateral SCDs. Hemoglobin dropped to 12.6 from 14.6 and platelet dropped to 169 from 266 since yesterday on heparin. H&H 15.6/45 may be high from hemoconcentration yesterday. Pharmacological prophylaxis contraindicated recent GI bleed with history of chronic alcohol use, erosive gastritis and esophagitis and duodenitis and drop in hematocrit and platelet count Active Medications Acetaminophen (Tylenol) 500 mg PO Q4H PRN PRN PRN Reason: Temp > 100.4 F Chlordiazepoxide (Librium) 50 mg PO Q6H [facility]; Taper Stop: 01/31/18 09:59 Last Admin: 01/28/18 08:34 Dose: 50 mg Dextrose (D50w Syringe) 0 gm IV X1 PRN; Protocol PRN Reason: Hypoglycemia Dicyclomine HCl (Bentyl) 20 mg PO Q6H PRN PRN PRN Reason: abdominal discomfort Folic Acid (Folic Acid) 1 [facility] Last Admin: 01/28/18 08:34 Dose: 1 mg Glucagon () 1 mg IM .X1 PRN PRN Reason: Hypoglycemia Heparin Sodium (Porcine) (Heparin Na) 5,000 unit SC Q12 [facility] Last Admin: 01/28/18 10:31 Dose: 5,000 unit Hydroxyzine Pamoate (Vistaril Pamoate Capsule) 50 mg PO Q6H PRN PRN PRN Reason: Mild Anxiety (score 1/3) Sodium Chloride () 250 mls @ 15 mls/hr IV .[id number] PRN PRN Reason: SALINE FLUSH Sodium Chloride () 1,000 mls @ 125 mls/hr IV .Q8H [facility] Last Admin: 01/28/18 08:28 Dose: 125 mls/hr Pantoprazole Sodium 40 mg/ (Sodium Chloride) 110 mls @ 330 mls/hr IV Q24 [facility] Last Admin: 01/28/18 10:26 Dose: 330 mls/hr Dexmedetomidine HCl 400 mcg/ (Sodium Chloride) 100 mls @ 11.25 mls/hr IV .[id number] [facility] Loperamide HCl (Imodium) 2 - 4 mg PO UD PRN PRN Reason: LOOSE STOOLS Lorazepam (Ativan) 2 mg IV Q4H PRN PRN PRN Reason: Severe Anxiety Magnesium Hydroxide (Milk Of Magnesia) 30 ml PO DAILY PRN PRN Reason: Constipation Methocarbamol (Methocarbamol) 750 mg PO Q6H PRN PRN PRN Reason: Muscle Aches Multivitamins (Multivitamin) 1 tablet PO [facility] Last Admin: 01/28/18 08:35 Dose: 1 tablet Nicotine (Nicoderm Cq (Pbkc)) 21 mg TRANSDERM. DAILY [facility] Last Admin: 01/28/18 10:33 Dose: 21 mg Senna (Senokot) 1 tablet PO QHS PRN PRN Reason: Constipation Sodium Chloride () 5 - 15 ml IV UD PRN PRN Reason: SALINE FLUSH Last Admin: 01/28/18 11:38 Dose: 10 ml Thiamine HCl (Vitamin B1) 100 mg PO [facility]ILYUN[facility] Last Admin: 01/28/18 10:28 Dose: 100 mg Trazodone HCl (Desyrel) 50 mg PO QHS [facility] Code Visit Inpatient E&M: 24768 Subs Hosp L3
--- NOTE | 2018-01-28 11:19 | NURSING ---
RN called Jamilah, patient's friend per patient request. She is aware of patient's transfer to ICU.
[2018-01-28 12:00] LABS: Bedside Glucose 98 mg/dL (70-110)
--- NOTE | 2018-01-28 12:42 | CASEMGMT ---
Pt was moved to ICU. SW attempted to meet w/pt, pt is sleeping at this time. SW will follow up w/pt on Tuesday, as time allows, in regard to alcohol use and self pay status. Pt was seen in December of 2017 and was given resources and a Medicaid application at that time. CRISTIAN Hernandez, ORDNANCE ENGINEER
--- NOTE | 2018-01-28 14:30 | NURSING ---
2 ICU RNs watching pt on camera. He appears restful, no tremors/diaphoresis noted. PT coughed and covered mouth w/left hand, slt tremor noted. While same 2 RNs cont to watch on camera, ICU FOUR SLIDE MACHINE SETTER walked around corner, now visible to pt. He immediately started w/head tremor that spread to Rt arm. no other tremors noted. Once FOUR SLIDE MACHINE SETTER moved from pt line of sight, tremors subsided. pt is now sitting, watching TV. appears relaxed w/no tremors/diaphorises or other s/s withdrawal noted.
--- NOTE | 2018-01-28 15:44 | NURSING ---
pt states I'm having a very bad day. I need some medicine. CIWA positive only for tremor. This RN started to prep precedex for infusion and educated pt re med, including that it would stanley his w/drawal s/s but he wouldn't feel the same sleepy high he felt w/the ativan. Pt indicates understanding. This RN had precedex tubing primed, attached to pt IV but hadn't actually started the med and had to leave the room for a few minutes. When returned, pt relaxed in bed w/no tremor or other s/s w/drawal noted. Pt indicates he is feeling better and closes his eyes. respers even/easy. Precedex left on hold.
--- NOTE | 2018-01-28 17:01 | NURSING ---
pt request amb to BR. pt able to exit bed, amb to BR, manage himself in the BR (including his clothes, washing hands) and return to bed SBA w/no diff and only minor tremors. On the camera, he was noted to be relaxed w/only minor Rt arm tremor. no other signs shaking. PT called out to request medicine to stop this shaking. When this RN walked into the room, pt was noted to be shaking his head and and Rt arm, rest of his body, including his face, is calm/relaxed. see CIWA. disc how precedex works, reminded pt how well he moved to BR, disc etoh w/drawal. pt indicates understanding. supper placed in front of the pt. [facility] staff left pt room. pt seen on camera. eating w/minor diff d/t rt arm shaking. pt also seen putting food on his spoon and transfering to mouth w/out diff. At one point, ICU HAND UMBRELLA TIPPER saw pt place his hand in the plate and shove all the food around then picker the spoon and yell in frustration. Pt increasingly frustrated. HAND UMBRELLA TIPPER then assisted w/meal.
[2018-01-28] MEDS: traZODone 50 MG Tablet PO (21:30)
[2018-01-29] VITALS (28 sets, daily range): BP systolic 98–155; BP diastolic 42–101; PULSE 52–76; RESP 10–32; TEMP 36.6–37.1; O2SAT 93–100
[2018-01-29 00:40] LABS: Bedside Glucose 83 mg/dL (70-110)
[2018-01-29] MEDS: 0.9% Normal Saline 1,000 ML 125 ML IV ×3 (01:11→17:09)
--- NOTE | 2018-01-29 03:45 | NURSING ---
Pt awake and calls RN via call light. Pt starts screaming, I need medicine! Dr. Hargrove on floor at this time and went in to speak with the patient. Pt having violent tremors while staff in room. Precedex titrated at this time. See med titration.
[2018-01-29 05:13] LABS: Absolute Lymphocyte Count 1.26 X10^3/ul (0.83-4.51); Absolute Neutrophil Count 2.2 X10^3/uL (2.0-7.7); Basophil# 0.05 X10^3/uL; Basophil% 1.3 % (0-1); Eosinophil# 0.16 X10^3/uL; Eosinophils% 4.1 % (0-5); Hematocrit 37.2 % (40-54); Hemoglobin 12.2 g/dl (13.0-16.5); Lymphocyte # 1.26 X10^3/ul (4.0); Lymphocyte % 32.6 % (19-41); Mean Corp Hgb Conc 32.8 g/gl (32-36); Mean Corpuscular Hgb 32.2 pg (27.0-32.0); Mean Corpuscular Volume 98.2 fL (80-94); Mean Platelet Vol. 8.9 fl (6.2-12.0); Monocyte% 5.2 % (0-10); Neutrophil # 2.19 X10^3/uL (2.7-7.7); Neutrophil % 56.8 % (47-70); POSITIVE COUNT NO; POSITIVE DIFFERENTIAL NO; POSITIVE MORPHOLOGY NO; Platelet Count 139 K/mm3 (150-450); RBC Distribution Width CV 14.4 % (11.6-14.6); RBC Distribution Width SD 50.3 fl (35.1-43.9); Red Blood Count 3.79 M/mm3 (4.6-6.2); White Blood Count 3.9 K/mm3 (4.4-11.0)
[2018-01-29 05:32] LABS: Anion Gap 6 (5-15); BUN 6 mg/dL (7-18); Calcium,Total 8.1 mg/dL (8.5-10.1); Chloride 113 mmol/L (98-107); EST Glomerular Filtration Rate 52 mL/min (>60); Est Glom Filt Rate - Afr Amer 63 mL/min (>60); Estimated Creatinine Clearance 58.26 ml/min; Glucose 89 mg/dL (74-106); Magnesium 1.8 mg/dL (1.6-2.6); Potassium 3.6 mmol/L (3.5-5.1); Sodium Level 144 mmol/L (136-145)
--- NOTE | 2018-01-29 06:46 | CON.PCM_ITS ---
Reason for Consult Date of Consultation: 01/29/18 Reason for Consultation: Alcohol withdrawal History of Present Illness: The patient is a 52-year-old male, with a history as outlined below, who presented to the emergency department on January 27 in acute alcohol withdrawal. The patient has a protracted course of alcohol dependence, consuming upwards of a gallon of hard liquor daily. He was admitted to the intensive care unit in April 2017 under similar circumstances. The patient's last drink was noted to be a day prior to his arrival to the emergency department. On presentation to the emergency department, the patient was noted to be afebrile, tachycardic and hypertensive. Laboratory evaluation revealed a mildly elevated white blood cell count. There was evidence of acute kidney injury with a creatinine of 2.57. Toxicology screen was positive for barbiturates and cannabinoids. Serum alcohol level was less than 3. Head CT was negative. Plain film chest x-ray revealed no acute cardiopulmonary process. The patient was initially admitted to the medical floor for treatment of his acute alcohol withdrawal with a Librium taper and Ativan. However, the patient's symptoms were refractory to the use of the aforementioned medications. Therefore, the patient was transferred to the medical intensive care unit for the initiation of a Precedex infusion. Past Medical History Past Medical History (Chronic Problems): Chronic Problems Alcohol withdrawal delirium, acute, hyperactive (Chronic) DM type 2 (diabetes mellitus, type 2) (Chronic) Bipolar 1 disorder (Chronic) History of kidney stones (Chronic) Continuous chronic alcoholism (Chronic) up to 1 gallon vodka daily Tobacco use (Chronic) Psychiatric pseudoseizure (Chronic) Homelessness (Chronic) Benign essential hypertension (Chronic) Allergies amoxicillin [Amoxicillin] Allergy (Verified 01/27/18 19:15) Anaphylaxis Penicillins Allergy (Verified 01/27/18 19:15) Anaphylaxis Home Medications: Ambulatory Orders Medication Instructions Recorded NK 01/27/18 Surgical History: no surgical history Smoking Status: Current every day smoker Tobacco Use: Cigarettes Alcohol: Heavy Drugs: None - *Family History Maternal History Items: No pertinent history Paternal History Items: No pertinent history Sibling History Items: No pertinent history Review of Systems Unable to obtain accurate/complete ROS d/t: Due to current state of sedation Objective: The patient's most recent lab work, culture data and imaging studies have all been personally reviewed. - Physical Exam General: Alert, - - The patient rested comfortably when he is not being interacted with, but with interaction he starts flapping his extremities in a tremulous pattern. HEENT: Atraumatic, PERRLA, Normocephalic Oral: Dry Mucosa Neck: Supple, No Nodes, Trachea Midline Lungs: No rhonchi, No wheeze, No rales, Diminished Cardiovascular: Regular rate, Regular Rhythm, Normal S1, Normal S2, No murmurs Abdomen: Bowel Sounds Present, Soft, Non Tender Extremities: No clubbing, No cyanosis, No edema Skin: No breakdown Musculoskeletal: No Tenderness to Palpation of Joints or Extremities Lymphatic: No Cervical, Supraclavicular, or Inguinal Adenopathy Neurological: Neuro grossly intact Psych/Mental Status: Agitated, Anxious, Impulsive Vital Signs Temp Pulse Resp BP Pulse Ox 36.6 C 61 11 L 116/71 95 01/29/18 06:00 01/29/18 06:00 01/29/18 06:00 01/29/18 06:00 01/29/18 06:00 Oxygen Delivery Method Room Air Weight: 207 lb 14.334 oz Body Mass Index (BMI) 29.2 Finger Stick Blood Glucose 98 Intake and Output for Last 24 Hours 01/27/18 01/28/18 01/29/18 23:59 23:59 23:59 Intake Total 2413 / 2413 2061.6 / 2061.6 Output Total 0 / 0 Balance 2413 / 2413 2061.6 / 2061.6 Laboratory Tests Past 24 Hrs 01/28/18 01/28/18 01/28/18 06:10 06:10 08:35 WBC RBC Hgb Hct MCV MCH MCHC RDW RDW Differential Plt Count MPV Immature Gran % (Auto) Neut % (Auto) Lymph % (Auto) [place] % (Auto) Eos % (Auto) Baso % (Auto) Absolute Neuts (auto) Absolute Lymphs (auto) Total Counted Sodium 141 Potassium 4.4 Chloride 112 H Carbon Dioxide 23.0 Anion Gap 6 BUN 5 L Creatinine 1.84 H Estim Creat Clear Calc 47.50 Est GFR (MDRD) Af Amer 50 L Est GFR (MDRD) Non-Af 41 L BUN/Creatinine Ratio 2.7 L Glucose 86 Calcium 7.7 L Phosphorus Magnesium Amylase 38 Lipase 143 Urine Opiates Screen NEGATIVE Urine Methadone Screen NEGATIVE Ur Barbiturates Screen POSITIVE H Ur Phencyclidine Scrn NEGATIVE Ur Amphetamines Screen NEGATIVE U Methamphetamin-MDMA NEGATIVE U Benzodiazepines Scrn NEGATIVE Urine Cocaine Screen NEGATIVE U Cannabinoids Screen POSITIVE H Ur Drug Screen Comment 01/29/18 01/29/18 05:00 05:00 WBC 3.9 L RBC 3.79 L Hgb 12.2 L Hct 37.2 L MCV 98.2 H MCH 32.2 H MCHC 32.8 RDW 14.4 RDW Differential 50.3 H Plt Count 139 L MPV 8.9 Immature Gran % (Auto) 0.000 Neut % (Auto) 56.8 Lymph % (Auto) 32.6 [place] % (Auto) 5.2 Eos % (Auto) 4.1 Baso % (Auto) 1.3 H Absolute Neuts (auto) 2.2 Absolute Lymphs (auto) 1.26 Total Counted Not Reportable Sodium 144 Potassium 3.6 Chloride 113 H Carbon Dioxide 25.0 Anion Gap 6 BUN 6 L Creatinine 1.50 H Estim Creat Clear Calc 58.26 Est GFR (MDRD) Af Amer 63 Est GFR (MDRD) Non-Af 52 L BUN/Creatinine Ratio 4.0 L Glucose 89 Calcium 8.1 L Phosphorus 2.0 L Magnesium 1.8 Amylase Lipase Urine Opiates Screen Urine Methadone Screen Ur Barbiturates Screen Ur Phencyclidine Scrn Ur Amphetamines Screen U Methamphetamin-MDMA U Benzodiazepines Scrn Urine Cocaine Screen U Cannabinoids Screen Ur Drug Screen Comment POC Glucose 01/29/18 01/28/18 00:36 11:46 POC Glucose 83 98 Clinical Impression(s) from Imaging Studies Brain CT 01/27/18 19:22 IMPRESSION: Mildly limited study due to motion artifact. There is no visualized intracranial or calvarial abnormality. There is no major interval change. Electronically Signed: Ronn Connolly DO at 20:07 EST Tel [phone], Service support , Chest X-Ray 01/27/18 19:35 IMPRESSION: No acute cardiopulmonary disease or interval change. Electronically Signed: Ronn Connolly DO at 19:56 EST Tel [phone], Service support , Assessment/Plan RECOMMENDATIONS: 1. Continue with alcohol withdrawal protocol. Continue Precedex for control of alcohol withdrawal symptoms. 2. Continue to monitor CIWA scores. 3. Continue thiamine and folate. 4. Continue supplemental IV fluid hydration, until p.o. intake increases. IMPRESSIONS: 1. Acute alcohol withdrawal The patient was transferred to the medical intensive care unit after his alcohol withdrawal symptoms were noted to be refractory to the use of Librium and Ativan. He was therefore transitioned to a Precedex infusion to control his alcohol withdrawal symptoms. This will be continued without change. Thiamine and folate will be continued. As needed Ativan can be initiated. We will also plan to continue gentle supplemental IV fluid hydration. 2. Acute kidney injury Secondary to prerenal azotemia, as the patient has responded favorably to volume expansion with IV fluids. Urine output is appropriate. No indication for renal replacement therapy. 3. Pancytopenia Likely secondary to long-standing alcohol dependence. Blood counts will continue to be monitored. No indication for transfusion at this time. 4. History of recent GI bleed/diabetes/tobacco dependence/history of pseudoseizures Complicates care, management, recovery and prognosis. Likely okay to continue home medications as indicated. Continue nicotine replacement therapy. Continue PPI therapy as ordered. This note was generated with [employer] dictation software. It may contain incorrect words, spelling, and punctuation that were not noted in checking the note before signing. Code Visit Inpatient E&M: 26503 Init Hosp L3
--- NOTE | 2018-01-29 08:53 | PCM.PROGNOTE ---
Subjective: Chief complaint: Follow-up after admission for acute alcohol withdrawal and acute kidney injury. Patient seen and examined. No acute events overnight. This morning, patient was sleepy and once he woke up, he started having tremors and flapping of his extremities. Patient stated that he is willing to quit drinking alcohol but he has been stating that one every admission. He had frequent admissions for the same problem. He complains of chest soreness. Denied chest pain or shortness of breath. His vital signs are stable. - Physical Exam General: Alert, Oriented x3, Cooperative, - - With no interaction, patient is resting comfortably. Within traction, he started having tremors and flattening of extremities. HEENT: Atraumatic, PERRLA, EOMI, Normocephalic Oral: Moist Mucosa, No Gingival or Mucosal Lesions/ Ulcerations Neck: Supple, No JVD, Negative Carotid Bruits, Trachea Midline, Thyroid Normal Size and Texture Lungs: Clear to auscultation, No rhonchi, No wheeze, No rales, Diminished Cardiovascular: Regular rate, Regular Rhythm, Normal S1, Normal S2 Abdomen: Bowel Sounds Present, Soft, Non Tender, Non-Distended, No Hepato-splenomegaly Extremities: No clubbing, No cyanosis, No edema Skin: No rashes, No breakdown Lymphatic: No Cervical, Supraclavicular, or Inguinal Adenopathy Neurological: Cranial nerves II-XII grossly intact, Neuro grossly intact Psych/Mental Status: Agitated, Anxious, Restless Vital Signs Temp Pulse Resp BP Pulse Ox 97.9 F 62 19 H 120/75 95 01/29/18 06:00 01/29/18 07:00 01/29/18 07:00 01/29/18 07:00 01/29/18 07:00 Oxygen Delivery Method Room Air Weight: 207 lb 14.334 oz Body Mass Index (BMI) 29.2 Finger Stick Blood Glucose 98 Intake and Output for Last 24 Hours 01/27/18 01/28/18 01/29/18 23:59 23:59 23:59 Intake Total 2413 / 2413 2061.6 / 2061.6 Output Total 0 / 0 Balance 2413 / 2413 2061.6 / 1.6 Laboratory Tests Past 24 Hrs 01/28/18 01/29/18 01/29/18 08:35 05:00 05:00 WBC 3.9 L RBC 3.79 L Hgb 12.2 L Hct 37.2 L MCV 98.2 H MCH 32.2 H MCHC 32.8 RDW 14.4 RDW Differential 50.3 H Plt Count 139 L MPV 8.9 Immature Gran % (Auto) 0.000 Neut % (Auto) 56.8 Lymph % (Auto) 32.6 [place] % (Auto) 5.2 Eos % (Auto) 4.1 Baso % (Auto) 1.3 H Absolute Neuts (auto) 2.2 Absolute Lymphs (auto) 1.26 Total Counted Not Reportable Sodium 144 Potassium 3.6 Chloride 113 H Carbon Dioxide 25.0 Anion Gap 6 BUN 6 L Creatinine 1.50 H Estim Creat Clear Calc 58.26 Est GFR (MDRD) Af Amer 63 Est GFR (MDRD) Non-Af 52 L BUN/Creatinine Ratio 4.0 L Glucose 89 Calcium 8.1 L Phosphorus 2.0 L Magnesium 1.8 Urine Opiates Screen NEGATIVE Urine Methadone Screen NEGATIVE Ur Barbiturates Screen POSITIVE H Ur Phencyclidine Scrn NEGATIVE Ur Amphetamines Screen NEGATIVE U Methamphetamin-MDMA NEGATIVE U Benzodiazepines Scrn NEGATIVE Urine Cocaine Screen NEGATIVE U Cannabinoids Screen POSITIVE H POC Glucose 01/29/18 01/28/18 00:36 11:46 POC Glucose 83 98 Medical Necessity - Tobacco Use Smoking Status: Current every day smoker Tobacco Use: Cigarettes Assessment/Plan All Active Problems Alcohol withdrawal (Acute) This is a 52 years old male patient admitted because of tremors and he was found to have acute alcohol withdrawal with history of recurrent admissions for alcohol withdrawal and relapse and also found to have acute kidney injury. #1 acute alcohol withdrawal: He is on IV Precedex drip, folic acid, thiamine and vitamin as well as as needed Ativan. This morning, his vital signs are stable. He continued to have flapping and tremors of his extremities upon interaction and conversation. He is resting comfortably without interaction. Patient has recurrent admissions for the same problem and recurrent relapse. His routine blood work was remarkable for mild pancytopenia and creatinine of 1.50. Plan: Continue same treatment, will discuss with the health care social worker and outpatient case manager about that discharge plan. #2 acute kidney injury: Prerenal secondary to dehydration. Patient has been on IV fluids. Admission creatinine was 2.57, came down to 1.5 cm today, improved. Plan to continue IV fluids, encourage oral intake. #3 pancytopenia: Probably secondary to chronic alcoholism and chronic liver disease. He does have leukopenia without evidence of neutropenia, hemoglobin is 12.2 g/dL and platelet count is 1 39,000. No indication for transfusion and no evidence of infection. Plan to monitor CBC. #4 continuous chronic alcoholism with recurrent relapse: Patient has been admitted frequently for the same problem and he keep relapsing and admitted for alcohol withdrawal. Plan as above. #5 type 2 diabetes mellitus: Blood sugar has been stable. Years ago, patient was on metformin but that was discontinued. His hemoglobin A1c was 5.2 on July,. His blood sugar has been stable. #6 hypertension: Blood pressure stable. During his last admission last month, he was discharged on Norvasc and atenolol and it is not clear if patient has been taking his medications. Plan to call his PCPs office tomorrow and confirm. #7 history of alcohol withdrawal seizure: According to the patient, patient has been on Keppra 500 mg p.o. twice daily. Again, prescription was given upon discharge last month and it is not clear if patient started taking his Keppra or not. Will confirm with his PCPs office tomorrow. #8 DVT prophylaxis: Subcu heparin. This note was generated with [employer] dictation software. It may contain incorrect words, spelling, and punctuation that were not noted in checking the note before signing. Code Visit Inpatient E&M: 81964 Subs Hosp L2
[2018-01-29] MEDS: Acetaminophen 500 MG Tablet PO (08:57)
[2018-01-29] MEDS: Folic Acid 1 MG Tablet PO (09:13)
[2018-01-29] MEDS: Multivitamins,Therapeutic Tablet 1 TABLET PO (09:14)
[2018-01-29] MEDS: Thiamine Hydrochloride 100 MG Tablet PO (09:14)
[2018-01-29] MEDS: Heparin Injection (Vial) 5,000 UNIT/ML VIAL 5000 UNIT SC ×2 (10:14→21:10)
[2018-01-29] MEDS: traZODone 50 MG Tablet PO (21:10)
[2018-01-29] MEDS: hydrOXYzine PAM 25 MG Capsule 50 MG PO (23:16)
[2018-01-30] VITALS (28 sets, daily range): BP systolic 104–170; BP diastolic 68–107; PULSE 49–98; RESP 6–26; TEMP 36.1–37; O2SAT 93–100
[2018-01-30] MEDS: 0.9% Normal Saline 1,000 ML 125 ML IV ×2 (00:45→08:52)
[2018-01-30] MEDS: 0.9% NaCl Peripheral Flush Adult/Peds IV (04:28)
[2018-01-30 04:32] LABS: Absolute Lymphocyte Count 1.87 X10^3/ul (0.83-4.51); Absolute Neutrophil Count 2.1 X10^3/uL (2.0-7.7); Basophil# 0.03 X10^3/uL; Basophil% 0.7 % (0-1); Eosinophil# 0.25 X10^3/uL; Eosinophils% 5.5 % (0-5); Hematocrit 36.9 % (40-54); Hemoglobin 12.7 g/dl (13.0-16.5); Lymphocyte # 1.87 X10^3/ul (4.0); Lymphocyte % 41.2 % (19-41); Mean Corp Hgb Conc 34.4 g/gl (32-36); Mean Corpuscular Hgb 33.1 pg (27.0-32.0); Mean Corpuscular Volume 96.1 fL (80-94); Mean Platelet Vol. 9.5 fl (6.2-12.0); Monocyte# 0.25 X10^3/uL; Monocyte% 5.5 % (0-10); Neutrophil # 2.14 X10^3/uL (2.7-7.7); Neutrophil % 47.1 % (47-70); Platelet Count 135 K/mm3 (150-450); RBC Distribution Width CV 13.3 % (11.6-14.6); RBC Distribution Width SD 45.1 fl (35.1-43.9); Red Blood Count 3.84 M/mm3 (4.6-6.2); White Blood Count 4.5 K/mm3 (4.4-11.0)
[2018-01-30 04:34] LABS: POSITIVE COUNT NO; POSITIVE DIFFERENTIAL NO; POSITIVE MORPHOLOGY NO
[2018-01-30 04:39] LABS: Anion Gap 9 (5-15); BUN 6 mg/dL (7-18); BUN/Creat Ratio 5.6 RATIO (10-20); Calcium,Total 8.1 mg/dL (8.5-10.1); Chloride 112 mmol/L (98-107); Creatinine, Serum 1.07 mg/dL (0.70-1.30); EST Glomerular Filtration Rate 77 mL/min (>60); Est Glom Filt Rate - Afr Amer 94 mL/min (>60); Estimated Creatinine Clearance 81.68 ml/min; Glucose 105 mg/dL (74-106); Potassium 3.8 mmol/L (3.5-5.1); Sodium Level 144 mmol/L (136-145)
--- NOTE | 2018-01-30 07:06 | PCM.PN.INT ---
Subjective: Patient did well overnight. No acute issues were reported. Patient has been able to be weaned on Precedex from 1.5 to as low as 1. Patient has had some bradycardia, but no hemodynamic instability. Doing well on room air. No as needed Ativan required overnight. Nursing does report patient will increase tremor on presentation, but appears to have no tremor with sleep or on camera. General: Alert, Oriented x3, Cooperative, No apparent distress, - - Tremor increased after patient was awoken HEENT: Atraumatic, PERRLA, EOMI, Normocephalic, - - Slight scleral injection without icterus Oral: Moist Mucosa, No Gingival or Mucosal Lesions/ Ulcerations Neck: Supple, No JVD, No Nodes, Trachea Midline Lungs: Clear to auscultation, Normal air movement, No rhonchi, No wheeze, No rales, - - Fair effort Cardiovascular: Regular rate, Regular Rhythm, Normal S1, Normal S2, No murmurs, No rub noted, No Gallop Abdomen: Bowel Sounds Present, Soft, Non Tender, Non-Distended Extremities: No clubbing, No cyanosis, No edema, Capillary Refill Less than 3 Seconds Skin: No rashes, No breakdown Musculoskeletal: No Tenderness to Palpation of Joints or Extremities, No Muscle Wasting Lymphatic: No Cervical, Supraclavicular, or Inguinal Adenopathy Neurological: Cranial nerves II-XII grossly intact, Neuro grossly intact, Motor Exam 5/5 strength throughout Psych/Mental Status: Appropriate, Impulsive Vital Signs Temp Pulse Resp BP Pulse Ox 37.0 C 49 L 18 147/92 H 94 01/30/18 00:00 01/30/18 07:00 01/30/18 07:00 01/30/18 07:00 01/30/18 07:00 Oxygen Delivery Method Room Air Weight: 97 kg Body Mass Index (BMI) 29.2 Finger Stick Blood Glucose 98 Intake and Output for Last 24 Hours 01/28/18 01/29/18 01/30/18 23:59 23:59 23:59 Intake Total 2413 / 2413 6291.6 / 6291.6 546 / 546 Output Total 0 / 0 Balance 2413 / 2413 6291.6 / 6291.6 546 / 546 Labs (Last 48 Hours) 01/28/18 01/28/18 01/28/18 06:10 08:35 11:46 WBC RBC Hgb Hct MCV MCH MCHC RDW RDW Differential Plt Count MPV Immature Gran % (Auto) Neut % (Auto) Lymph % (Auto) [place] % (Auto) Eos % (Auto) Baso % (Auto) Absolute Neuts (auto) Absolute Lymphs (auto) Total Counted Sodium Potassium Chloride Carbon Dioxide Anion Gap BUN Creatinine Estim Creat Clear Calc Est GFR (MDRD) Af Amer Est GFR (MDRD) Non-Af BUN/Creatinine Ratio Glucose Calcium Phosphorus Magnesium Amylase 38 Lipase 143 Urine Opiates Screen NEGATIVE Urine Methadone Screen NEGATIVE Ur Barbiturates Screen POSITIVE H Ur Phencyclidine Scrn NEGATIVE Ur Amphetamines Screen NEGATIVE U Methamphetamin-MDMA NEGATIVE U Benzodiazepines Scrn NEGATIVE Urine Cocaine Screen NEGATIVE U Cannabinoids Screen POSITIVE H Ur Drug Screen Comment POC Glucose 98 01/29/18 01/29/18 01/29/18 00:36 05:00 05:00 WBC 3.9 L RBC 3.79 L Hgb 12.2 L Hct 37.2 L MCV 98.2 H MCH 32.2 H MCHC 32.8 RDW 14.4 RDW Differential 50.3 H Plt Count 139 L MPV 8.9 Immature Gran % (Auto) 0.000 Neut % (Auto) 56.8 Lymph % (Auto) 32.6 [place] % (Auto) 5.2 Eos % (Auto) 4.1 Baso % (Auto) 1.3 H Absolute Neuts (auto) 2.2 Absolute Lymphs (auto) 1.26 Total Counted Not Reportable Sodium 144 Potassium 3.6 Chloride 113 H Carbon Dioxide 25.0 Anion Gap 6 BUN 6 L Creatinine 1.50 H Estim Creat Clear Calc 58.26 Est GFR (MDRD) Af Amer 63 Est GFR (MDRD) Non-Af 52 L BUN/Creatinine Ratio 4.0 L Glucose 89 Calcium 8.1 L Phosphorus 2.0 L Magnesium 1.8 Amylase Lipase Urine Opiates Screen Urine Methadone Screen Ur Barbiturates Screen Ur Phencyclidine Scrn Ur Amphetamines Screen U Methamphetamin-MDMA U Benzodiazepines Scrn Urine Cocaine Screen U Cannabinoids Screen Ur Drug Screen Comment POC Glucose 83 01/30/18 01/30/18 04:15 04:15 WBC 4.5 RBC 3.84 L Hgb 12.7 L Hct 36.9 L MCV 96.1 H MCH 33.1 H MCHC 34.4 RDW 13.3 RDW Differential 45.1 H Plt Count 135 L MPV 9.5 Immature Gran % (Auto) 0.000 Neut % (Auto) 47.1 Lymph % (Auto) 41.2 H [place] % (Auto) 5.5 Eos % (Auto) 5.5 H Baso % (Auto) 0.7 Absolute Neuts (auto) 2.1 Absolute Lymphs (auto) 1.87 Total Counted Not Reportable Sodium 144 Potassium 3.8 Chloride 112 H Carbon Dioxide 23.0 Anion Gap 9 BUN 6 L Creatinine 1.07 Estim Creat Clear Calc 81.68 Est GFR (MDRD) Af Amer 94 Est GFR (MDRD) Non-Af 77 BUN/Creatinine Ratio 5.6 L Glucose 105 Calcium 8.1 L Phosphorus Magnesium Amylase Lipase Urine Opiates Screen Urine Methadone Screen Ur Barbiturates Screen Ur Phencyclidine Scrn Ur Amphetamines Screen U Methamphetamin-MDMA U Benzodiazepines Scrn Urine Cocaine Screen U Cannabinoids Screen Ur Drug Screen Comment POC Glucose Medical Necessity - Tobacco Use Smoking Status: Current every day smoker Tobacco Use: Cigarettes Assessment/Plan All Active Problems Alcohol withdrawal (Acute) RECOMMENDATIONS: 1. Continue with alcohol withdrawal protocol. Continue to wean Precedex as tolerated. 2. Continue to monitor CIWA scores. 3. Continue thiamine and folate. 4. Attempt to increase p.o. intake today 5. Transition to p.o. Protonix IMPRESSIONS: 1. Acute alcohol withdrawal The patient was transferred to the medical intensive care unit after his alcohol withdrawal symptoms were noted to be refractory to the use of Librium and Ativan. Patient has been able to come down off of Precedex infusion by 33%. We will continue to wean through the day today. No signs or symptoms of seizure thus far. 2. Acute kidney injury RESOLVED> secondary to prerenal azotemia, as the patient has responded favorably to volume expansion with IV fluids. Urine output is appropriate. No indication for renal replacement therapy. 3. Pancytopenia Likely secondary to long-standing alcohol dependence. Blood counts will continue to be monitored. No indication for transfusion at this time. 4. History of recent GI bleed/diabetes/tobacco dependence/history of pseudoseizures Complicates care, management, recovery and prognosis. Likely okay to continue home medications as indicated. Continue nicotine replacement therapy. Continue PPI therapy as ordered. Code Visit Inpatient E&M: 88541 Subs Hosp L3
--- NOTE | 2018-01-30 08:04 | PCM.PROGNOTE ---
Subjective: Chief complaint: Follow-up after admission for acute alcohol withdrawal and acute kidney injury. Patient seen and examined. No acute issues overnight. He denies any complaints. Still shaking upon introduction. Remains on Precedex drip, wean down. No as needed Ativan needed. His vital signs are stable. - Physical Exam General: Alert, Oriented x3, Cooperative, - - Tremor upon interaction. HEENT: Atraumatic, PERRLA, EOMI, Normocephalic Oral: Moist Mucosa, No Gingival or Mucosal Lesions/ Ulcerations Neck: Supple, No JVD, Negative Carotid Bruits, Trachea Midline, Thyroid Normal Size and Texture Lungs: Clear to auscultation, Normal air movement, No rhonchi, No wheeze, No rales Cardiovascular: Regular rate, Regular Rhythm, Normal S1, Normal S2, PMI Normal, Bradycardic Abdomen: Bowel Sounds Present, Soft, Non Tender, Non-Distended, No Hepato-splenomegaly Extremities: No clubbing, No cyanosis, No edema Skin: No rashes, No breakdown Lymphatic: No Cervical, Supraclavicular, or Inguinal Adenopathy Neurological: Cranial nerves II-XII grossly intact, Neuro grossly intact, - - Tremors. Psych/Mental Status: Anxious, Restless, Alert and oriented to time, place, person, mood and affect Vital Signs Temp Pulse Resp BP Pulse Ox 98.6 F 49 L 18 147/92 H 94 01/30/18 00:00 01/30/18 07:00 01/30/18 07:00 01/30/18 07:00 01/30/18 07:00 Oxygen Delivery Method Room Air Weight: 213 lb 13.574 oz Body Mass Index (BMI) 29.2 Finger Stick Blood Glucose 98 Intake and Output for Last 24 Hours 01/28/18 01/29/18 01/30/18 23:59 23:59 23:59 Intake Total 2413 / 2413 6291.6 / 6291.6 546 / 546 Output Total 0 / 0 Balance 2413 / 2413 6291.6 / 6291.6 546 / 546 Laboratory Tests Past 24 Hrs 01/30/18 01/30/18 04:15 04:15 WBC 4.5 RBC 3.84 L Hgb 12.7 L Hct 36.9 L MCV 96.1 H MCH 33.1 H MCHC 34.4 RDW 13.3 RDW Differential 45.1 H Plt Count 135 L MPV 9.5 Immature Gran % (Auto) 0.000 Neut % (Auto) 47.1 Lymph % (Auto) 41.2 H [place] % (Auto) 5.5 Eos % (Auto) 5.5 H Baso % (Auto) 0.7 Absolute Neuts (auto) 2.1 Absolute Lymphs (auto) 1.87 Total Counted Not Reportable Sodium 144 Potassium 3.8 Chloride 112 H Carbon Dioxide 23.0 Anion Gap 9 BUN 6 L Creatinine 1.07 Estim Creat Clear Calc 81.68 Est GFR (MDRD) Af Amer 94 Est GFR (MDRD) Non-Af 77 BUN/Creatinine Ratio 5.6 L Glucose 105 Calcium 8.1 L Medical Necessity - Tobacco Use Smoking Status: Current every day smoker Tobacco Use: Cigarettes Assessment/Plan All Active Problems Alcohol withdrawal (Acute) This is a 52 years old male patient admitted because of tremors and he was found to have acute alcohol withdrawal with history of recurrent admissions for alcohol withdrawal and relapse and also found to have acute kidney injury. #1 acute alcohol withdrawal: He is on IV Precedex drip, folic acid, thiamine and vitamin as well as as needed Ativan. Precedex drip weaned down, no as needed Ativan needed overnight. Hemodynamically stable. He continued to have tremors upon conversation. Patient has recurrent admissions for the same problem and recurrent relapse. Will discuss with the socially responsible investment adviser and medical case worker about the discharge planning. #2 acute kidney injury: Prerenal secondary to dehydration. Patient has been on IV fluids. Admission creatinine was 2.57, came down to 1.07 cm today, improved. Plan to encourage oral intake. #3 pancytopenia: Probably secondary to chronic alcoholism and chronic liver disease. White blood cell count is back to normal, absolute neutrophil count is normal. Hemoglobin and platelet count are stable. Today's hemoglobin is 12.7 g/dL. Today's platelet count is 135,000. No evidence of active bleeding. No indication for transfusion. #4 continuous chronic alcoholism with recurrent relapse: Patient has been admitted frequently for the same problem and he keep relapsing and admitted for alcohol withdrawal. Plan as above. #5 type 2 diabetes mellitus: Blood sugar has been stable. Years ago, patient was on metformin but that was discontinued. His hemoglobin A1c was 5.2 on July,. His blood sugar has been stable. #6 hypertension: Blood pressure has been fluctuating. He is not on any antihypertensive medications. During his last admission last month, he was discharged on Norvasc and atenolol and it is not clear if patient has been taking his medications. Plan to call his PCPs office today and confirm. #7 history of alcohol withdrawal seizure: According to the patient, patient has been on Keppra 500 mg p.o. twice daily. Again, prescription was given upon discharge last month and it is not clear if patient started taking his Keppra or not. Will confirm with his PCPs office today. #8 DVT prophylaxis: Subcu heparin. This note was generated with [email or web address] dictation software. It may contain incorrect words, spelling, and punctuation that were not noted in checking the note before signing. Code Visit Inpatient E&M: 38913 Subs Hosp L2
--- NOTE | 2018-01-30 08:10 | PN_ITS ---
Subjective: Chief complaint: Follow-up after admission for acute alcohol withdrawal and acute kidney injury. Patient seen and examined. No acute issues overnight. He denies any complaints. Still shaking upon introduction. Remains on Precedex drip, wean down. No as needed Ativan needed. His vital signs are stable. - Physical Exam General: Alert, Oriented x3, Cooperative, - - Tremor upon interaction. HEENT: Atraumatic, PERRLA, EOMI, Normocephalic Oral: Moist Mucosa, No Gingival or Mucosal Lesions/ Ulcerations Neck: Supple, No JVD, Negative Carotid Bruits, Trachea Midline, Thyroid Normal Size and Texture Lungs: Clear to auscultation, Normal air movement, No rhonchi, No wheeze, No rales Cardiovascular: Regular rate, Regular Rhythm, Normal S1, Normal S2, PMI Normal, Bradycardic Abdomen: Bowel Sounds Present, Soft, Non Tender, Non-Distended, No Hepato- splenomegaly Extremities: No clubbing, No cyanosis, No edema Skin: No rashes, No breakdown Lymphatic: No Cervical, Supraclavicular, or Inguinal Adenopathy Neurological: Cranial nerves II-XII grossly intact, Neuro grossly intact, - - Tremors. Psych/Mental Status: Anxious, Restless, Alert and oriented to time, place, person, mood and affect Vital Signs Temp Pulse Resp BP Pulse Ox 98.6 F 49 L 18 147/92 H 94 01/30/18 00:00 01/30/18 07:00 01/30/18 07:00 01/30/18 07:00 01/30/18 07:00 Oxygen Delivery Method Room Air Weight: 213 lb 13.574 oz Body Mass Index (BMI) 29.2 Finger Stick Blood Glucose 98 Intake and Output for Last 24 Hours 01/28/18 01/29/18 01/30/18 23:59 23:59 23:59 Intake Total 2413 / 2413 6291.6 / 6291.6 546 / 546 Output Total 0 / 0 Balance 2413 / 2413 6291.6 / 6291.6 546 / 546 Laboratory Tests Past 24 Hrs 01/30/18 01/30/18 04:15 04:15 WBC 4.5 RBC 3.84 L Hgb 12.7 L Hct 36.9 L MCV 96.1 H MCH 33.1 H MCHC 34.4 RDW 13.3 RDW Differential 45.1 H Plt Count 135 L MPV 9.5 Immature Gran % (Auto) 0.000 Neut % (Auto) 47.1 Lymph % (Auto) 41.2 H [place] % (Auto) 5.5 Eos % (Auto) 5.5 H Baso % (Auto) 0.7 Absolute Neuts (auto) 2.1 Absolute Lymphs (auto) 1.87 Total Counted Not Reportable Sodium 144 Potassium 3.8 Chloride 112 H Carbon Dioxide 23.0 Anion Gap 9 BUN 6 L Creatinine 1.07 Estim Creat Clear Calc 81.68 Est GFR (MDRD) Af Amer 94 Est GFR (MDRD) Non-Af 77 BUN/Creatinine Ratio 5.6 L Glucose 105 Calcium 8.1 L Medical Necessity - Tobacco Use Smoking Status: Current every day smoker Tobacco Use: Cigarettes Assessment/Plan All Active Problems Alcohol withdrawal (Acute) This is a 52 years old male patient admitted because of tremors and he was found to have acute alcohol withdrawal with history of recurrent admissions for alcohol withdrawal and relapse and also found to have acute kidney injury. #1 acute alcohol withdrawal: He is on IV Precedex drip, folic acid, thiamine and vitamin as well as as needed Ativan. Precedex drip weaned down, no as needed Ativan needed overnight. Hemodynamically stable. He continued to have tremors upon conversation. Patient has recurrent admissions for the same problem and recurrent relapse. Will discuss with the administrator social welfare and continuous pillowcase cutter about the discharge planning. #2 acute kidney injury: Prerenal secondary to dehydration. Patient has been on IV fluids. Admission creatinine was 2.57, came down to 1.07 cm today, improved. Plan to encourage oral intake. #3 pancytopenia: Probably secondary to chronic alcoholism and chronic liver disease. White blood cell count is back to normal, absolute neutrophil count is normal. Hemoglobin and platelet count are stable. Today's hemoglobin is 12.7 g/dL. Today's platelet count is 135,000. No evidence of active bleeding. No indication for transfusion. #4 continuous chronic alcoholism with recurrent relapse: Patient has been admitted frequently for the same problem and he keep relapsing and admitted for alcohol withdrawal. Plan as above. #5 type 2 diabetes mellitus: Blood sugar has been stable. Years ago, patient was on metformin but that was discontinued. His hemoglobin A1c was 5.2 on July,. His blood sugar has been stable. #6 hypertension: Blood pressure has been fluctuating. He is not on any antihypertensive medications. During his last admission last month, he was discharged on Norvasc and atenolol and it is not clear if patient has been taking his medications. Plan to call his PCPs office today and confirm. #7 history of alcohol withdrawal seizure: According to the patient, patient has been on Keppra 500 mg p.o. twice daily. Again, prescription was given upon discharge last month and it is not clear if patient started taking his Keppra or not. Will confirm with his PCPs office today. #8 DVT prophylaxis: Subcu heparin. This note was generated with [employer] dictation software. It may contain incorrect words, spelling, and punctuation that were not noted in checking the note before signing. Code Visit Inpatient E&M: 22427 Subs Hosp L2
--- NOTE | 2018-01-30 11:00 | CASEMGMT ---
Social Work: Referral Date: 01/30/18 Date of assessment: 01/30/18 Reason for Consult: Alcohol abuse/self pay Informant: JAE THAKKAR Personal Status: Mentation: Patient is alert and oriented x 3 but appears to be unclear on many specifics regarding his hospitalization and what led to admission. Present during assessment: Patient alone in room Living arrangements: Patient states that he has a roommate named Aurelia that he has lived with for 2 years. Patient states that it is Aurelia's apartment and that she pays the rent. Per patient, it is a [employer] apartment. Patient states that he and Aurelia had a fall out and Aurelia has moved out of the apartment. Patient states that he plans to return to apartment at D/C. Patient appears frustrated with Aurelia as he states that Aurelia has the winn to the mailbox and patient has not been able to obtain the mail. Employment: Patient states that he was employed at [employer] but lost his job 4 months ago due to cuts. Patient has not been employed since this time. Supports: Patient states that his friend Jamilah has been his support and is currently requesting to complete DPOAHC papers appointing Jamilah as his POA for healthcare. Patient is aware that he will need to talk to Jamilah about this and get her consent before he lists her as his POA for health care. ADL's: Patient independent with ADL's. Medical history and current status: Patient has a history of DM and HTN. Substance Abuse history and current pattern of use: Alcohol: Patient admits to drinking daily stating that he drinks 1 gallon of [place] a day. Patient states that he has been drinking since the age of 6 when per patient, his mother started giving him Schnapps. Patient states that he has been involved in AA but has not gone in a long time because it does not help airways. Patient states that he was sober for 7 months but when he lost his job he started drinking again. Tobacco: Patient smokes 1 PPD. Other: Patient denies any other substance abuse. Treatment: Patient states he has not had treatment for alcohol abuse in the past but currently states I need help Mental Health history and current status: Diagnoses: Per patient, patient has been diagnoses with bi-polar disorder and PTSD. Stressors: Patient states that current issues with Aurelia is causing him stress. Patient also states that the loss of employment has caused stress levels to increase in his life. SI or HI: denies ideations or intent Treatment: Patient states that he has counseling in the past at [facility] and is currently receiving counseling at [facility]. Patient states his counselors name is Christopher. Medications: Patient states I used to take medications for my bi-polar but I don't now because I cannot afford them. Resources: JFS: Patient states that he was on [employer] and re applying again 3 months ago on line. Intervention: 1) Information provided to patient on resources for assistance with alcohol addiction. 2) TC to Sully in [facility] who will see patient for assistance with fiances related to hospital stay. 3) Advised patient to ask friend Jamilah about willingness to be patient's POA for healthcare. If Jamilah is willing, then SW will assist patient in completing forms. 4) Active listening and supportive counseling provided. PLAN: SW to discuss financial assistance options with PFS. Will assist patient with AD if friend Jamilah willing to be patient's POA for healthcare. Patient to return to current living situation at D/C. Will follow to assist as needed with psychosocial needs. CRISTIAN Eddy
--- NOTE | 2018-01-30 11:20 | CASEMGMT ---
JAE THAKKAR INITIAL ASSESSMENT D/C PLAN: Home Face to Face with patient for initial transition planning/care coordination assessment. JAE THAKKAR introduced self and role at [facility]. Pt willing to participate in assessment. Care providers, pharmacy, and demographics verified. PCP: Mirtha Specialists: Denies Preferred Pharmacy: [facility] Insurance: has no Health Care Insurance. States he started filling out paperwork for [employer] on Tuesday but that he wasn't able to complete. JOSE Stauffer, Financial Services Dept was up to talk with patient already. Prescription Benefit: None. has difficulty paying for prescriptions d/t is not working. Referred to [facility]. Pt states he has been there before and will look into getting assistance from them again. Per JOSE Stauffer, pt used [facility] Medication Assistance Program last admission so is not eligible to use it at this time. Living Will/HCPOA: does not have LW or HCPOA. wants his friend, Jamilah, to be his HCPOA. Informed him would have SW come in to talk with him about AD. JOSE Stauffer, notified. LNOK: States he does not have any family around. States he grew up in [place] and moved to this area about 12 years ago. Living Arrangements: Lives with roommate, Aurelia. States she just moved out temporarily and he is not sure if she's going to allow him to continue to stay with her. He states he's going to have his friend, Jamilah, get in touch with Aurelia today about this. Transportation: Does not drive. Uses bus for transportation. Provided with [facility] Transportation services info/contact # if he needs transportation to [facility] Services or physicians. DME: Denies using any DME and denies needs. HHC/SNF: has never used HHC services or been to a SNF. Pt wishes to return to his apartment. Pt states he drinks daily and smokes 1 PPD. is not interested in information about Smoking Cessation. JOSE Stauffer, to talk with pt about ETOH abuse. See JOSE note. CM to follow for any further discharge planning needs that may arise. Rajat DE LA O RN, CM
[2018-01-30] MEDS: Multivitamins,Therapeutic Tablet 1 TABLET PO (12:42)
[2018-01-30] MEDS: Heparin Injection (Vial) 5,000 UNIT/ML VIAL 5000 UNIT SC ×2 (12:42→21:41)
[2018-01-30] MEDS: Thiamine Hydrochloride 100 MG Tablet PO (12:42)
[2018-01-30] MEDS: Folic Acid 1 MG Tablet PO (12:42)
[2018-01-30] MEDS: Pantoprazole Sodium 40 MG Tablet PO (12:42)
--- NOTE | 2018-01-30 14:30 | CASEMGMT ---
Social Work: TC from Jamilah Winkler who states she is patient's friend and person to notify. This COMPUTER TECHNOLOGIST checked medical record demographics and Jamilah is listed as person to notify. Per Jamilah, she spoke with patient regarding POA for healthcare. Jamilah verbalizing that she understand what the POA for health care is and is willing to be patient's POA. Will follow to assist with AD forms. CRISTIAN Eddy
--- NOTE | 2018-01-30 15:06 | CASEMGMT ---
Patient had requested to do advance directives. He wanted his friend Jamilah to be his POA. Jamilah called Ally GARCIA and told her she is willing to be his healthcare POA. JOSE met with patient, introduced self and role at [facility]. Documents were completed, but patient did not want to sign them today as he is shaking too much. Documents are completed, just need patient's signature. JOSE will stop back tomorrow. Amanda GARCIA MSW
--- NOTE | 2018-01-30 15:21 | CASEMGMT ---
Social Work: TC to Sully in [facility]. Sully states that she spoke with patient today regarding eligibility for HCAP assistance. Sully states that patient was unclear as to when he stopped working. Sully states that she will check with patient again tomorrow to attempt to assess need and eligibility. This HEAD OF SALES PROMOTION informed Sully that patient states he applying for [employer] (on line) 3 months ago and is waiting for the response in the mail. CRISTIAN Eddy
[2018-01-30] MEDS: levETIRAcetam 500 MG Tablet PO (21:41)
[2018-01-30] MEDS: traZODone 50 MG Tablet PO (21:41)
[2018-01-30] MEDS: hydrOXYzine PAM 25 MG Capsule 50 MG PO (22:36)
[2018-01-31] VITALS (15 sets, daily range): BP systolic 128–166; BP diastolic 81–107; PULSE 66–95; RESP 11–20; TEMP 36.2–36.9; O2SAT 95–100
[2018-01-31] MEDS: Acetaminophen 500 MG Tablet PO ×2 (06:45→20:54)
--- NOTE | 2018-01-31 07:01 | PCM.PN.INT ---
Subjective: Patient did well overnight. No acute issues were reported. Patient has been off of Precedex since last evening without complication. No excessive Ativan use has been required. Patient does report some concerns about issues at discharge with his home. Asking for social work support. General: Alert, Oriented x3, Cooperative, No apparent distress, - - Appears older than stated age. Speaking in full sentences. HEENT: Atraumatic, PERRLA, EOMI, Normocephalic, - - No scleral icterus or injection noted. Oral: Moist Mucosa, No Gingival or Mucosal Lesions/ Ulcerations Neck: Supple, No JVD, No Nodes, Trachea Midline Lungs: Clear to auscultation, Normal air movement, No rhonchi, No wheeze, No rales, - - Symmetric expansion. No dullness to percussion. Cardiovascular: Regular rate, Regular Rhythm, Normal S1, Normal S2, No murmurs, No rub noted, No Gallop Abdomen: Bowel Sounds Present, Soft, Non Tender, Non-Distended, Obese Extremities: No clubbing, No cyanosis, No edema, Capillary Refill Less than 3 Seconds Skin: No rashes, No breakdown Musculoskeletal: No Tenderness to Palpation of Joints or Extremities, No Muscle Wasting Lymphatic: No Cervical, Supraclavicular, or Inguinal Adenopathy Neurological: Cranial nerves II-XII grossly intact, Neuro grossly intact, Motor Exam 5/5 strength throughout, - - Tremor much improved. Psych/Mental Status: Alert and oriented to time, place, person, mood and affect Vital Signs Temp Pulse Resp BP Pulse Ox 36.5 C L 74 15 155/98 H 98 01/31/18 04:00 01/31/18 06:00 01/31/18 06:00 01/31/18 06:00 01/31/18 06:00 Oxygen Delivery Method Room Air Weight: 94.4 kg Body Mass Index (BMI) 29.2 Finger Stick Blood Glucose 98 Intake and Output for Last 24 Hours 01/29/18 01/30/18 01/31/18 23:59 23:59 23:59 Intake Total 6291.6 / 6291.6 2946 / 2946 1570 / 1570 Output Total 0 / 0 Balance 6291.6 / 6291.6 2946 / 2946 1570 / 1570 Labs (Last 48 Hours) 01/30/18 01/30/18 04:15 04:15 WBC 4.5 RBC 3.84 L Hgb 12.7 L Hct 36.9 L MCV 96.1 H MCH 33.1 H MCHC 34.4 RDW 13.3 RDW Differential 45.1 H Plt Count 135 L MPV 9.5 Immature Gran % (Auto) 0.000 Neut % (Auto) 47.1 Lymph % (Auto) 41.2 H Dewey % (Auto) 5.5 Eos % (Auto) 5.5 H Baso % (Auto) 0.7 Absolute Neuts (auto) 2.1 Absolute Lymphs (auto) 1.87 Total Counted Not Reportable Sodium 144 Potassium 3.8 Chloride 112 H Carbon Dioxide 23.0 Anion Gap 9 BUN 6 L Creatinine 1.07 Estim Creat Clear Calc 81.68 Est GFR (MDRD) Af Amer 94 Est GFR (MDRD) Non-Af 77 BUN/Creatinine Ratio 5.6 L Glucose 105 Calcium 8.1 L Medical Necessity - Tobacco Use Smoking Status: Current every day smoker Tobacco Use: Cigarettes Assessment/Plan All Active Problems Alcohol withdrawal (Acute) RECOMMENDATIONS: 1. Okay to transition to multivitamin 2. Continue to monitor CIWA scores. 3. Hemodynamically stable on room air. Okay to transfer from the intensive care unit 4. Will sign off. Call with any concerns. IMPRESSIONS: 1. Acute alcohol withdrawal The patient was transferred to the medical intensive care unit after his alcohol withdrawal symptoms were noted to be refractory to the use of Librium and Ativan. Patient has been off of Precedex therapy for quite some time and doing well. Tremor appears to be much improved. Patient has been hemodynamically stable on room air. Okay to leave the intensive care unit. Will sign off from a critical care perspective. Please call with any further issues. 2. Acute kidney injury RESOLVED> secondary to prerenal azotemia, as the patient has responded favorably to volume expansion with IV fluids. Urine output is appropriate. No indication for renal replacement therapy. 3. Pancytopenia Likely secondary to long-standing alcohol dependence. Blood counts will continue to be monitored. No indication for transfusion at this time. 4. History of recent GI bleed/diabetes/tobacco dependence/history of pseudoseizures Complicates care, management, recovery and prognosis. Likely okay to continue home medications as indicated. Continue nicotine replacement therapy. Continue PPI therapy as ordered. Code Visit Inpatient E&M: 14640 Subs Hosp L2
--- NOTE | 2018-01-31 08:07 | PCM.PROGNOTE ---
Subjective: Chief complaint: Follow-up after admission for acute alcohol withdrawal and acute kidney injury. Patient seen and examined. No acute events overnight. Patient has been of of Precedex drip since last night. He denied any significant complaints. He continued to have tremors and slapping of his upper extremities upon interaction. Blood pressure slightly elevated, other vital signs are stable. - Physical Exam General: Alert, Oriented x3, Cooperative, - - Tremors. HEENT: Atraumatic, PERRLA, EOMI, Normocephalic Oral: Moist Mucosa, No Gingival or Mucosal Lesions/ Ulcerations Neck: Supple, No JVD, Negative Carotid Bruits, Trachea Midline, Thyroid Normal Size and Texture Lungs: Clear to auscultation, No rhonchi, No wheeze, No rales, Diminished Cardiovascular: Regular rate, Regular Rhythm, Normal S1, Normal S2, No murmurs, PMI Normal Abdomen: Bowel Sounds Present, Soft, Non Tender, Non-Distended, No Hepato-splenomegaly Extremities: No clubbing, No cyanosis, No edema Skin: No rashes, No breakdown Lymphatic: No Cervical, Supraclavicular, or Inguinal Adenopathy Neurological: Cranial nerves II-XII grossly intact, Motor Exam 5/5 strength throughout, - - Tremors. Psych/Mental Status: Appropriate, Anxious, Alert and oriented to time, place, person, mood and affect Vital Signs Temp Pulse Resp BP Pulse Ox 97.7 F L 74 20 H 162/99 H 100 01/31/18 04:00 01/31/18 07:00 01/31/18 07:00 01/31/18 07:00 01/31/18 07:00 Oxygen Delivery Method Room Air Weight: 208 lb 1.862 oz Body Mass Index (BMI) 29.2 Finger Stick Blood Glucose 98 Intake and Output for Last 24 Hours 01/29/18 01/30/18 01/31/18 23:59 23:59 23:59 Intake Total 6291.6 / 6291.6 2946 / 2946 1570 / 1570 Output Total 0 / 0 Balance 6291.6 / 6291.6 2946 / 2946 1570 / 1570 Medical Necessity - Tobacco Use Smoking Status: Current every day smoker Tobacco Use: Cigarettes Assessment/Plan All Active Problems Alcohol withdrawal (Acute) This is a 52 years old male patient admitted because of tremors and he was found to have acute alcohol withdrawal with history of recurrent admissions for alcohol withdrawal and relapse and also found to have acute kidney injury. #1 acute alcohol withdrawal: IV Precedex drip discontinued since last night. He is on folic acid, thiamine and vitamin as well as as needed Ativan. No excessive PRN Ativan required overnight as well. Hemodynamically stable. He continued to have tremors upon conversation. Patient has recurrent admissions for the same problem and recurrent relapse. Plan: Transfer to [facility] floor later today, mental health crisis consult. #2 acute kidney injury: Prerenal secondary to dehydration. Patient has been on IV fluids. Admission creatinine was 2.57, came down to 1.07 cm yesterday, resolved. #3 pancytopenia: Probably secondary to chronic alcoholism and chronic liver disease. White blood cell count is back to normal, absolute neutrophil count is normal. Hemoglobin and platelet count are stable. Yesterday's hemoglobin is 12.7 g/dL. Yesterday's platelet count is 135,000. No evidence of active bleeding. No indication for transfusion. #4 continuous chronic alcoholism with recurrent relapse: Patient has been admitted frequently for the same problem and he keep relapsing and admitted for alcohol withdrawal. Plan as above. #5 type 2 diabetes mellitus: Blood sugar has been stable. Years ago, patient was on metformin but that was discontinued. His hemoglobin A1c was 5.2 on July,. His blood sugar has been stable. #6 hypertension: Started on his home medications including Norvasc. Blood pressure is most likely related, plan to continue same treatment. #7 history of alcohol withdrawal seizure: Started back on Keppra, stable. #8 DVT prophylaxis: Subcu heparin. This note was generated with [employer] dictation software. It may contain incorrect words, spelling, and punctuation that were not noted in checking the note before signing. Code Visit Inpatient E&M: 46162 Subs Hosp L2
[2018-01-31] MEDS: Thiamine Hydrochloride 100 MG Tablet PO (10:51)
[2018-01-31] MEDS: Multivitamins,Therapeutic Tablet 1 TABLET PO (10:51)
[2018-01-31] MEDS: Folic Acid 1 MG Tablet PO (10:51)
[2018-01-31] MEDS: levETIRAcetam 500 MG Tablet PO ×2 (10:52→20:55)
[2018-01-31] MEDS: Heparin Injection (Vial) 5,000 UNIT/ML VIAL 5000 UNIT SC ×2 (10:52→20:55)
[2018-01-31] MEDS: amLODIPine 10 MG Tablet PO (10:53)
[2018-01-31] MEDS: Pantoprazole Sodium 40 MG Tablet PO (10:53)
--- NOTE | 2018-01-31 11:29 | CASEMGMT ---
SW finished advance directives with patient. Copies were made and a set of each document was placed in patient's chart. Originals and a couple extra copies were given to patient. Amanda GARCIA MSW
[2018-01-31] MEDS: hydrOXYzine PAM 25 MG Capsule 50 MG PO ×2 (14:58→20:54)
[2018-01-31] MEDS: traZODone 50 MG Tablet PO (20:55)
[2018-02-01] VITALS: PULSE 101
[2018-02-01 02:58] VITALS: BP 142/91; PULSE 68; RESP 18; TEMP 36.7; O2SAT 97
[2018-02-01 04:00] VITALS: PULSE 76
[2018-02-01] MEDS: hydrOXYzine PAM 25 MG Capsule 50 MG PO ×2 (05:38→11:58)
[2018-02-01] MEDS: Acetaminophen 500 MG Tablet PO (05:38)
[2018-02-01 07:30] VITALS: PULSE 75
[2018-02-01 08:40] VITALS: BP 151/97; PULSE 85; RESP 18; TEMP 36.8; O2SAT 97
[2018-02-01] MEDS: Thiamine Hydrochloride 100 MG Tablet PO (08:43)
[2018-02-01] MEDS: Folic Acid 1 MG Tablet PO (08:43)
[2018-02-01] MEDS: levETIRAcetam 500 MG Tablet PO (08:43)
[2018-02-01] MEDS: amLODIPine 10 MG Tablet PO (08:43)
[2018-02-01] MEDS: Pantoprazole Sodium 40 MG Tablet PO (08:43)
[2018-02-01] MEDS: Heparin Injection (Vial) 5,000 UNIT/ML VIAL 5000 UNIT SC (08:43)
[2018-02-01] MEDS: Multivitamins,Therapeutic Tablet 1 TABLET PO (08:43)
--- NOTE | 2018-02-01 09:29 | DCINST_ITS ---
You will use the following diet at home:: Cardiac Your food should be the consistency of: Regular Discharge Activity: Return to Normal Activity Weight Bearing Status: Full weight bearing Call your doctor if you observe: Fever of 101 or Higher, Shortness of breath, Dizziness, Fainting spells, Chest pain, Increased palpitations (irregular heartbeat), Uncontrolled pain Instructions: Alcohol Withdrawal: What to Expect, Recovering from Addiction: Continuing with Counseling, Recovering from Addiction: Coping with Relapse Allergies/Adverse Reactions: Allergies amoxicillin [Amoxicillin] Allergy (Verified 01/27/18 19:15) Anaphylaxis Penicillins Allergy (Verified 01/27/18 19:15) Anaphylaxis Medications to take at Discharge Amlodipine [Norvasc] 10 mg PO DAILY 01/30/18 Atenolol [Tenormin (beta clem)] 25 mg PO BID 01/30/18 Pantoprazole Sodium [Protonix] 40 mg PO DAILY 01/30/18 Quetiapine Fumarate [Seroquel] 100 mg PO QHS 01/30/18 levETIRAcetam tablet [Keppra tablet] 500 mg PO BID 01/30/18 Folic Acid 1 mg PO DAILYCM #30 tablet 02/01/18 Thiamine Hydrochloride [Vitamin B1] 100 mg PO DAILYCM #30 tablet 02/01/18 The following prescriptions were given: Folic Acid 1 mg PO DAILYCM #30 tablet Thiamine Hydrochloride [Vitamin B1] 100 mg PO DAILYCM #30 tablet Primary Care Physician: Edison Shannon MD [Primary Care Provider] - Please follow up with your Primary Care Physician in: 1 week. Test Results: Test results from this visit will be discussed in further detail at your follow- up appointment, if applicable.
--- NOTE | 2018-02-01 11:00 | CASEMGMT ---
Social Work Note Pt is requesting to speak to SW. SW met with pt. SW introduced self and role at [facility]. Pt states that he has been trying to get a hold of his friend Aurelia who he lived with as he is currently locked out of his apartment and Aurelia has the keys. Pt states he has called his friend Aurelia multiple times and his friend Jamilah has attempted to call her multiple times as well and Aurelia won't answer the phone. Pt states that he called his claim attorney and his claim attorney said since pt has lived there for at least 6 months and is receiving his mail there, he is a legally a resident of the apartment. SW encouraged pt to continue to attempt to get in contact with Aurelia. SW informed pt that he may also want to consider talking to his landlord, his claim attorney and the police to see if they are able to assist him. Pt went into detail about his living environment and his goal is to get a new apartment with his friend Jamilah. SW provided support and utilized active listening skills. Tiana Puente RESIDENTIAL INSTALLER, CIRCUIT CLERK
[2018-02-01 12:00] VITALS: BP 128/86; PULSE 82; RESP 18; TEMP 36.8; O2SAT 100
--- NOTE | 2018-02-01 13:23 | PCM.DC.SUM ---
Discharge Date and Diagnosis Date of Admission: 01/27/18 Date of Discharge: 02/01/18 - Primary Discharge Diagnosis #1 acute alcohol withdrawal. #2 acute kidney injury. #3 mild pancytopenia. #4 continuous chronic alcoholism with recurrent relapse. - Secondary Discharge Diagnosis Chronic Problems DM type 2 (diabetes mellitus, type 2) (Chronic) Bipolar 1 disorder (Chronic) History of kidney stones (Chronic) Continuous chronic alcoholism (Chronic) up to 1 gallon vodka daily Tobacco use (Chronic) Psychiatric pseudoseizure (Chronic) Homelessness (Chronic) Benign essential hypertension (Chronic) Hospital Course and Treatment Imaging Results: Clinical Impression(s) from Imaging Studies Brain CT 01/27/18 19:22 IMPRESSION: Mildly limited study due to motion artifact. There is no visualized intracranial or calvarial abnormality. There is no major interval change. Electronically Signed: Ronn Connolly DO at 20:07 EST Tel [phone], Service support , Chest X-Ray 01/27/18 19:35 IMPRESSION: No acute cardiopulmonary disease or interval change. Electronically Signed: Ronn Connolly DO at 19:56 EST Tel [phone], Service support , Consultations 01/28/18 14:54 Consult: New Vision Routine Consulting Provider: Consulted Physician Type:: New Vision Reason for consult:: etoh withdrawal 01/31/18 07:38 Consult: Mental Health/Crisis Routine Reason for consult?: alcohol dependency, history of psychiatric problems- not managed, threats to police last week while at his apartment Date Notified:: 01/31/18 Time notified:: 08:00 Dr. Clemons/Dr. Negron, critical care. Operations: None Procedures: EKG Summary of Care Provided: Patient seen and examined on day of discharge and appeared to be stable to be discharged home. He has been of IV Precedex drip for more than 48 hours. He did not require any Ativan overnight. His vital signs are stable. #1 acute alcohol withdrawal: Initially, he was admitted to intensive care unit, started on IV Precedex drip for severe withdrawal and delirium tremens. Also, he was treated with folic acid and thiamine supplement as well as as needed Ativan. Will be able to wean down Precedex and was discontinued later. Patient continued to have intentional tremors upon conversation with the staff but not when patient alone and on camera. Patient has been frequently admitted for same problem and he keep relapsing and drinking alcohol heavily. During this admission, I spoke with this patient multiple times and he expressed clear intentions in quitting drinking as during previous admissions. During this admission, patient was seen and evaluated by mental health crisis team who stated that patient is not suicidal or homicidal, no psychiatric issues at this time and no indication for inpatient psychiatric evaluation. Patient discharged home in a stable medical condition, discharged on folic acid and thiamine supplement, counseled multiple times on his drinking behavior and expressed importance of urgent need to quit drinking at this time and patient agreed. #2 acute kidney injury: Prerenal secondary to dehydration. Treated with IV fluids and his kidney function returned back to normal. His admission creatinine was 2.57 which came down to 1.07 upon discharge. #3 Mild pancytopenia: Probably secondary to chronic alcoholism and chronic liver disease. His white blood cell count improved back to normal and his absolute neutrophil count was normal. His hemoglobin and platelet counts were stable at his baseline. There was no indication for transfusion. #6 hypertension: Continued on Norvasc and atenolol. Recently, I prescribed with both Norvasc and atenolol and we are not sure if patient has been taking his medications. Upon discharge, patient was continued on Norvasc and atenolol. #7 history of alcohol withdrawal seizure: On the last admission, I gave him prescription for Keppra for 90 days which was filled. Continued on the same dosage of Keppra upon discharge. Patient discharged home in a stable medical condition, discharged on folic acid and thiamine supplement, discharged on Norvasc and atenolol, on Keppra and Seroquel, highly recommended to follow-up with PCP in 1 week. This note was generated with Renth[employer] dictation software. It may contain incorrect words, spelling, and punctuation that were not noted in checking the note before signing. - Physical Exam General: Alert, Oriented x3, Cooperative, No apparent distress HEENT: Atraumatic, PERRLA, EOMI, Normocephalic Oral: Moist Mucosa, No Gingival or Mucosal Lesions/ Ulcerations Neck: Supple, No JVD, Negative Carotid Bruits, Trachea Midline, Thyroid Normal Size and Texture Lungs: Clear to auscultation, Normal air movement, No rhonchi, No wheeze, No rales Cardiovascular: Regular rate, Regular Rhythm, Normal S1, Normal S2, PMI Normal Abdomen: Bowel Sounds Present, Soft, Non Tender, Non-Distended, No Hepato-splenomegaly Extremities: No clubbing, No cyanosis, No edema Skin: No rashes, No breakdown Lymphatic: No Cervical, Supraclavicular, or Inguinal Adenopathy Neurological: Cranial nerves II-XII grossly intact, Neuro grossly intact Psych/Mental Status: Normal Affect, Appropriate Vital Signs Temp Pulse Resp BP Pulse Ox 98.2 F 82 18 128/86 H 100 02/01/18 12:00 02/01/18 12:00 02/01/18 12:00 02/01/18 12:00 02/01/18 12:00 Oxygen Delivery Method Room Air Weight: 208 lb 1.862 oz Body Mass Index (BMI) 29.2 Finger Stick Blood Glucose 98 Intake and Output for Last 24 Hours 01/30/18 01/31/18 02/01/18 23:59 23:59 23:59 Intake Total 2946 / 2946 2870 / 2870 500 / 500 Balance 2946 / 2946 2870 / 2870 500 / 500 Discharge Activity: Return to Normal Activity Weight Bearing Status: Full weight bearing Call your doctor if you observe: Fever of 101 or Higher, Shortness of breath, Dizziness, Fainting spells, Chest pain, Increased palpitations (irregular heartbeat), Uncontrolled pain Home Medications: Medications to take at Discharge Amlodipine [Norvasc] 10 mg PO DAILY 01/30/18 Atenolol [Tenormin (beta clem)] 25 mg PO BID 01/30/18 levETIRAcetam tablet [Keppra tablet] 500 mg PO BID 01/30/18 Folic Acid 1 mg PO DAILYCM #30 tablet 02/01/18 Quetiapine Fumarate [Seroquel] 100 mg PO QHS #30 tablet 02/01/18 Thiamine Hydrochloride [Vitamin B1] 100 mg PO DAILYCM #30 tablet 02/01/18 Following Prescrptions Were Given to Patient: Folic Acid 1 mg PO DAILYCM #30 tablet Quetiapine Fumarate [Seroquel] 100 mg PO QHS #30 tablet Thiamine Hydrochloride [Vitamin B1] 100 mg PO DAILYCM #30 tablet Primary Care Physician: Edison Shannon MD [Primary Care Provider] - Please follow up with your Primary Care Physician in: 1 week. Patient Instructions: Alcohol Withdrawal: What to Expect, Recovering from Addiction: Continuing with Counseling, Recovering from Addiction: Coping with Relapse Disposition: Home Minutes spent on discharge:: 33 Patient Condition:: Stable Medical Necessity - Tobacco Use Smoking Status: Current every day smoker Tobacco Use: Cigarettes Meaningful Use Info Meaningful Use Diagnoses (Choose all that apply): None applicable Code Visit Inpatient E&M: 07767 Disch Hosp
--- NOTE | 2018-02-01 15:11 | CASEMGMT ---
Social Work Note FA[employer]W LEAD updated this worker that pt had requested to speak to this worker again. SW in to speak with pt. Pt soundly sleeping. Tiana Puente STONE BANKER, CDL TEAM TRUCK DRIVER
--- NOTE | 2018-02-01 16:10 | NURSING ---
This nurse into speak to patient as he was asking for a social welfare administrator. Patient aware that Tiana social welfare administrator has left for the day. Patient states that he needs to speak to her as he has no where to stay tonight. This nurse suggested the [facility], patient states they do not have beds available. This nurse suggested he call his friend Jamilah and see if she is able to assist him. Pt also reports calling the [employer] about trying to get in touch with Aurelia, who's apartment he has been staying in since 2016. Pt reports all of his belongings are in this apartment and that he does not have a winn. Pt awaiting response from the officer. Pt requested to stay here in [facility]. Pt aware that he has been discharged from the hospital and that there is no medical reason for him to stay here as a patient. Pt stated, I'll just go steal alcohol and then you can admit me. Pt reminded that he is sober for 5 days and that he needs to avoid alcohol. This nurse also encouraged patient to not steal alcohol as that seems like a way to get arrested. This nurse called JOSE Paris in the ER who gave information for [facility] in [place] as well as called [facility] to confirm there were no beds available. Patient is no longer allowed to stay at the [facility]. Patient given the information about [place] [facility] and he requested the phone number for [facility], which was provided.
--- NOTE | 2018-02-01 16:50 | CM.ED ---
Addendum entered by Alida Dias 02/01/18 17:25: Social Work Note According to Aden Ayala, pt is aware of [facility] and he would need to be there by 1944 this evening to stay. He reports that his girlfriend, Jamilah, lives in [place] and could not get him there on time. Placed call to [facility] who verifies that the pt is not a member and therefore not eligible for transportation services. Pt to be discharged this evening. PEG Leggett LISW Original Note: Social Work Note Call from Aden Ayala RN that pt was to discharge today and is now stating that he cannot go anywhere and [facility] does not have any beds. Placed call to [facility] in [place] who reports that they do have beds, but the pt is on their do not take list. According to RN the pt has been living with a Aurelia for 2 years and has not been able to get a hold of her to ensure he can return or be let into the apartment. Discuss options of waiting in the apartment lobby until she returns or going to [facility] via his [facility] transportation. RN to present options to pt and notify SW is transport will need setup. Will continue to follow and assist as needed. PLAN: TBD PEG Leggett LISW
--- NOTE | 2018-02-01 17:47 | NURSING ---
Spoke with patient again, states if he can get a ride to the apartment on [address], he will call a mat man to get into his apartment. Ride arranged via gabriela pt to be at main entrance at [phone].
--- NOTE | 2018-02-02 15:32 | CASEMGMT ---
JAE THAKKAR Discharge Follow-Up Phone Call. LACE: 4 Discharge Date: 02-01-18 Adm Dx: Acute ETOH withdrawal with DT Attempted to contact pt without success. No answer and message came on saying that the mailbox is full and unable to take messages. Rajat DE LA O RN CM
== END 2018-02-01 18:17 | disposition home or self-care (01) | DRG 897 ==
LOC: ED 20:16 → PCU 22:04 → ICU 01-28 15:19 → PCU 01-30 07:25 → ICU 01-30 09:54 → MS3 01-31 14:37
PROVIDERS: Internal Medicine; Admitting Provider Family Medicine; Emergency Provider Emergency Medicine; Family Provider Family Medicine; PCP Family Medicine; Visit Provider Hospitalist
DX: F10.231 Alcohol dependence with withdrawal delirium (principal); N17.9 Acute kidney failure, unspecified; D61.818 Other pancytopenia; I10 Essential (primary) hypertension; E86.0 Dehydration; F17.210 Nicotine dependence, cigarettes, uncomplicated; F31.9 Bipolar disorder, unspecified; E11.9 Type 2 diabetes mellitus without complications; Z87.442 Personal history of urinary calculi; Z59.0 Homelessness
CPT/HCPCS: 36415; 70450; 71045; 80048; 80053; 80307; 80320; 81001; 82150; 82962; 83690; 83735; 84100; 84484; 85025; 93005; 97162; 97165; 99285; 99406; J7030; J7050; A4216; G0480; J3490

== ENCOUNTER 2018-02-10 19:13 | Inpatient (IN) | payer SELFPAY ==
[2018-02-10 19:14] VITALS: BP 158/94; PULSE 98; RESP 16; TEMP 36.7; O2SAT 98; BMI 30.7
--- NOTE | 2018-02-10 19:30 | ED.RN ---
1:1 SITTER SINCE TIME OF ARRIVAL.
--- NOTE | 2018-02-10 20:15 | ED.RN ---
THIS NURSE REMOVED PT CELL PHONE FROM ROOM. PT STATES I SEE YOUR BOY OUT THERE IN THE HALLWAY. I'M NOT GONNA FIGHT YOU WITH HIM HERE. [employer] IN THE HALLWAY
[2018-02-10 21:09] LABS: Absolute Lymphocyte Count 2.93 X10^3/ul (0.83-4.51); Absolute Neutrophil Count 2.7 X10^3/uL (2.0-7.7); Basophil% 1.6 % (0-1); Eosinophil# 0.17 X10^3/uL; Eosinophils% 2.7 % (0-5); Hematocrit 44.9 % (40-54); Hemoglobin 15.7 g/dl (13.0-16.5); Lymphocyte # 2.93 X10^3/ul (4.0); Mean Corpuscular Hgb 32.6 pg (27.0-32.0); Mean Corpuscular Volume 93.3 fL (80-94); Mean Platelet Vol. 8.9 fl (6.2-12.0); Monocyte% 4.8 % (0-10); Neutrophil # 2.72 X10^3/uL (2.7-7.7); Neutrophil % 43.7 % (47-70); Platelet Count 266 K/mm3 (150-450); RBC Distribution Width CV 14.3 % (11.6-14.6); RBC Distribution Width SD 47.2 fl (35.1-43.9); Red Blood Count 4.81 M/mm3 (4.6-6.2); White Blood Count 6.2 K/mm3 (4.4-11.0)
[2018-02-10 21:10] LABS: POSITIVE COUNT NO; POSITIVE DIFFERENTIAL NO; POSITIVE MORPHOLOGY NO
[2018-02-10 21:35] LABS: AST(SGOT) 109 U/L (15-37); Alanine Aminotransfer ALT/SGPT 183 U/L (16-61); Alkaline Phosphatase 76 U/L (45-117); Anion Gap 16 (5-15); BUN 9 mg/dL (7-18); BUN/Creat Ratio 11.1 RATIO (10-20); Bilirubin, Direct 0.09 mg/dL (0.00-0.30); Calcium,Total 8.2 mg/dL (8.5-10.1); Chloride 107 mmol/L (98-107); Creatinine, Serum 0.81 mg/dL (0.70-1.30); EST Glomerular Filtration Rate 107 mL/min (>60); Est Glom Filt Rate - Afr Amer 129 mL/min (>60); Estimated Creatinine Clearance 107.89 ml/min; Globulin 3.8 g/dL (2.2-4.2); Glucose 111 mg/dL (74-106); Potassium 4.2 mmol/L (3.5-5.1); Protein, Total 7.8 g/dL (6.4-8.2); Sodium Level 142 mmol/L (136-145)
[2018-02-10] MEDS: LORazepam 2 MG/ML Syringe 1 MG IV (21:56)
[2018-02-10 21:58] VITALS: BP 141/90; PULSE 112; RESP 18; O2SAT 92
--- NOTE | 2018-02-10 21:58 | ED.RN ---
ETOH 310 PER LAB, AND PRIMARY RN NOTIFIED
[2018-02-10 22:00] VITALS: BP 141/86; PULSE 111; RESP 14; O2SAT 95
[2018-02-10 22:05] LABS: Amphetamine Urine VISTA NEGATIVE (<1000 ng/mL); Barbiturate Urine VISTA NEGATIVE (< 200 ng/mL); Benzodiazepine Urine VISTA NEGATIVE (< 200 ng/mL); Cocaine Urine VISTA NEGATIVE (< 300 ng/mL); Ecstacy Urine VISTA NEGATIVE (< 500 ng/mL); Methadone Urine VISTA NEGATIVE (< 300 ng/mL); PCP Urine VISTA NEGATIVE (< 25 ng/mL); THC Urine VISTA POSITIVE (< 50 ng/mL); Vista UDS pH Range 6
--- NOTE | 2018-02-10 22:30 | ED.VISSUMM ---
- ER Visit Summary Date of Service: 02/10/18 Chief Complaint: Suicidal ideation History of Present Illness: The patient is a 52 M who reports holding the barrel of a gun in his mouth for 12 hours today because he was suicidal. He called the counseling center as well as a friend. Friend reported called police. Patient reports recently he lost a job and lost his significant other. He does have a history of alcohol abuse and states that he drinks 1/2 gallon of vodka a day. He states his last drink was at 645 yesterday morning. Past history is significant for diabetes, bipolar disorder, hypertension, kidney stones, lung cancer. He does admit to alcohol and drug use as well as marijuana. Physical Examination: Blood pressure is 158/94, temperature 98.1, heart rate 98, respiratory rate 16, pulse ox 98% on room air. Patient sitting upright in bed. He is alert and cooperative. Heart is regular rate and rhythm. Lungs sounds are clear. Abdomen is soft and nontender. Skin examination was no rash or lesions. Psychiatric evaluation does reveal depressed affect and suicidal thoughts. Test Results: CBC is unremarkable. Chemistry studies for bicarb of 19 and a glucose of 111. His LFTs are significant for an ALT of 183 and AST of 109. Tox screen is positive for cannabinoids. EtOH is 310. Emergency Department Course and Treatment: Patient was placed on cardiac specialist. He did report feeling somewhat jittery and his heart rate was measured in the 1 teens. He did receive 1 mg of IV Ativan. Patient was signed out to oncoming physician for further monitoring and repeat alcohol will be drawn in the morning. Treatment Plan: [] Disposition: Pending crisis eval Impression: Suicidal ideation Alcohol intoxication This note was generated with [employer] dictation software. It may contain incorrect words, spelling, and punctuation that were not noted in review of the chart prior to signing ED Disposition - Plan for ED Patient: Chief Complaint: Suicidal Referrals: Care Physician,No Primary [Primary Care Provider] -
--- NOTE | 2018-02-10 22:33 | ED.DCSUM_ITS ---
- ER Visit Summary Date of Service: 02/10/18 Chief Complaint: Suicidal ideation History of Present Illness: The patient is a 52 M who reports holding the barrel of a gun in his mouth for 12 hours today because he was suicidal. He called the counseling center as well as a friend. Friend reported called police. Patient reports recently he lost a job and lost his significant other. He does have a history of alcohol abuse and states that he drinks 1/2 gallon of vodka a day. He states his last drink was at 645 yesterday morning. Past history is significant for diabetes, bipolar disorder, hypertension, kidney stones, lung cancer. He does admit to alcohol and drug use as well as marijuana. Physical Examination: Blood pressure is 158/94, temperature 98.1, heart rate 98, respiratory rate 16, pulse ox 98% on room air. Patient sitting upright in bed. He is alert and cooperative. Heart is regular rate and rhythm. Lungs sounds are clear. Abdomen is soft and nontender. Skin examination was no rash or lesions. Psychiatric evaluation does reveal depressed affect and suicidal thoughts. Test Results: CBC is unremarkable. Chemistry studies for bicarb of 19 and a glucose of 111. His LFTs are significant for an ALT of 183 and AST of 109. Tox screen is positive for cannabinoids. EtOH is 310. Emergency Department Course and Treatment: Patient was placed on flying squad salesperson. He did report feeling somewhat jittery and his heart rate was measured in the 1 teens. He did receive 1 mg of IV Ativan. Patient was signed out to oncoming physician for further monitoring and repeat alcohol will be drawn in the morning. Treatment Plan: [] Disposition: Pending crisis eval Impression: Suicidal ideation Alcohol intoxication This note was generated with [employer] dictation software. It may contain incorrect words, spelling, and punctuation that were not noted in review of the chart prior to signing ED Disposition - Plan for ED Patient: Chief Complaint: Suicidal Referrals: Care Physician,No Primary [Primary Care Provider] -
[2018-02-10 23:00] VITALS: BP 125/80; PULSE 114; RESP 14; O2SAT 91
[2018-02-11] VITALS (15 sets, daily range): BP systolic 106–151; BP diastolic 74–93; PULSE 74–129; RESP 16–22; TEMP 36.7–36.9; O2SAT 90–96; BMI 29.4
--- NOTE | 2018-02-11 01:09 | EKG12_ITS ---
Test Reason : CP Blood Pressure : / mmHG Vent. Rate : 118 BPM Atrial Rate : 119 BPM P-R Int : 152 ms QRS Dur : 110 ms QT Int : 330 ms P-R-T Axes : 062 017 045 degrees QTc Int : 462 ms Sinus tachycardia Incomplete right bundle branch block Borderline ECG Confirmed by CHENCHO VAUGHAN ([id number]), writer editor YAZMIN COREY ([id number]) on 02/13/2018 12:59:36 PM Referred By: TREY Confirmed By:CHENCHO VAUGHAN
[2018-02-11] MEDS: LORazepam 2 MG/ML Syringe 0.5 MG IV (01:11)
[2018-02-11] MEDS: diazePAM 5 MG Tablet 10 MG PO ×2 (01:24→02:44)
[2018-02-11] MEDS: LORazepam 2 MG/ML Syringe 1.5 MG IV (01:24)
[2018-02-11] MEDS: LORazepam 2 MG/ML Syringe IV ×2 (02:44→05:32)
--- NOTE | 2018-02-11 02:52 | PCM.HP.STD ---
History of Present Illness Date of Admission: 02/11/18 Chief Complaint: Alcohol withdrawal The patient is a 52 year old M with past medical history of hypertension and seizure disorder as well as alcohol abuse. He was admitted through the ED on 02/11/2018 for alcohol withdrawal. According to him his girlfriend told him that he needs help with his alcohol intake and so she asked him to come to the ED. He drinks about a gallon of vodka or bourbon daily and his last drink was around 10 AM today. He has been admitted numerous times for alcohol withdrawal the last time in about 2 weeks ago. He admitted to fever and chills and tremors and palpitations that also complained of chest pain which was pressure-like and rated about 8/10 and retrosternal. He denied any abdominal pain, diarrhea vomiting. Review of systems otherwise negative. He states is not been taking any medication for his aforementioned conditions because he cannot afford them. Vitals were significant for tachycardia with heart rate been in the 1 teens at a time of review he was tachypneic as well with respiratory rate around 21. Labs were significant for bicarb of 19 and mild anion gap of 16. CBC was unremarkable. He is been admitted to be managed for alcohol withdrawal and chest pain to rule out ACS. [] Past Medical History Past Medical History (Chronic Problems): Chronic Problems DM type 2 (diabetes mellitus, type 2) (Chronic) Bipolar 1 disorder (Chronic) History of kidney stones (Chronic) Continuous chronic alcoholism (Chronic) up to 1 gallon vodka daily Tobacco use (Chronic) Psychiatric pseudoseizure (Chronic) Homelessness (Chronic) Benign essential hypertension (Chronic) Allergies amoxicillin [Amoxicillin] Allergy (Verified 02/10/18 19:29) Anaphylaxis Penicillins Allergy (Verified 02/10/18 19:29) Anaphylaxis Home Medications: Ambulatory Orders Medication Instructions Recorded Amlodipine [Norvasc] 10 mg PO DAILY 01/30/18 Atenolol [Tenormin (beta clem)] 25 mg PO BID 01/30/18 levETIRAcetam tablet [Keppra 500 mg PO BID 01/30/18 tablet] Folic Acid 1 mg PO DAILYCM #30 tablet 02/01/18 Quetiapine Fumarate [Seroquel] 100 mg PO QHS #30 tablet 02/01/18 Thiamine Hydrochloride [Vitamin B1] 100 mg PO DAILYCM #30 tablet 02/01/18 Surgical History: no surgical history Psychiatric History: Bipolar, Depression Lives: Spouse/ Significant Other Smoking Status: Current every day smoker Tobacco Use: Cigarettes Alcohol: Heavy - one gallon of vodka daily Drugs: None - *Family History Maternal History Items: No pertinent history Paternal History Items: No pertinent history Sibling History Items: No pertinent history Review of Systems Constitutional: Reports: Chills, Fever. Denies: Weight Change HEENT: Denies: Head Aches, Sinus Congestion, Sinus Drainage Cardiovascular: Reports: Chest Pain, Light Headedness, Palpitations. Denies: Chest Pressure, Chest Tightness, Edema, Heaviness, Orthopnea, Syncope Respiratory: Denies: Cough, Shortness of Breath, Shortness of breath at rest, Shortness of breath upon exertion, Sputum production Gastrointestinal: Denies: Abdominal Pain, Nausea, Vomiting Genitourinary: Denies: Dysuria Musculoskeletal: Denies: Joint Pain, Joint Tenderness Skin: Denies: Rash, Wounds Neurological: Denies: Numbness, Tingling, Focal weakness Psychiatric: Denies: Anxiety, Depression, Homicidal Ideations, Suicidal Ideations Hematologic/ Lymphatic: Denies: Easy Bruising, Easy Bleeding Comment: has tremors and is restless VTE Information - Inpt Only VTE Present on Admission: No VTE Pharm Prophylaxis ordered?: Yes - Physical Exam General: Alert, Oriented x3, Cooperative, Confused, - - restless and tremulous HEENT: Atraumatic, PERRLA, EOMI, Normocephalic Oral: Dry Mucosa Neck: Supple, No JVD, Negative Carotid Bruits Lungs: Clear to auscultation, Normal air movement, No rhonchi, No wheeze, No rales Cardiovascular: Regular Rhythm, Normal S1, Normal S2, Tachycardic Abdomen: Bowel Sounds Present, Soft, Non Tender, Non-Distended, No Hepato-splenomegaly Extremities: No clubbing, No cyanosis, No edema, Capillary Refill Less than 3 Seconds Skin: No rashes, No breakdown Musculoskeletal: No Tenderness to Palpation of Joints or Extremities Lymphatic: No Cervical, Supraclavicular, or Inguinal Adenopathy Neurological: Neuro grossly intact, - - very tremulous and has some agitated Psych/Mental Status: Agitated, Anxious, Restless, Alert and oriented to time, place, person, mood and affect Vital Signs Temp Pulse Resp BP Pulse Ox 98.4 F 114 H 21 H 136/88 H 96 02/11/18 02:47 02/11/18 02:47 02/11/18 02:47 02/11/18 02:47 02/11/18 02:47 Oxygen Delivery Method Room Air Weight: 208 lb Body Mass Index (BMI) 30.7 Finger Stick Blood Glucose 98 Laboratory Tests Past 24 Hrs 02/10/18 02/10/18 02/10/18 20:55 20:55 20:55 WBC 6.2 RBC 4.81 Hgb 15.7 Hct 44.9 MCV 93.3 MCH 32.6 H MCHC 35.0 RDW 14.3 RDW Differential 47.2 H Plt Count 266 MPV 8.9 Immature Gran % (Auto) 0.200 Neut % (Auto) 43.7 L Lymph % (Auto) 47.0 H [place] % (Auto) 4.8 Eos % (Auto) 2.7 Baso % (Auto) 1.6 H Absolute Neuts (auto) 2.7 Absolute Lymphs (auto) 2.93 Total Counted Not Reportable Sodium 142 Potassium 4.2 Chloride 107 Carbon Dioxide 19.0 L Anion Gap 16 H BUN 9 Creatinine 0.81 Estim Creat Clear Calc 107.89 Est GFR (MDRD) Af Amer 129 Est GFR (MDRD) Non-Af 107 BUN/Creatinine Ratio 11.1 Glucose 111 H Calcium 8.2 L Total Bilirubin 0.30 Direct Bilirubin 0.09 AST 109 H ALT 183 H Alkaline Phosphatase 76 Troponin I Total Protein 7.8 Albumin 4.0 Globulin 3.8 Urine Opiates Screen Urine Methadone Screen Ur Barbiturates Screen Ur Phencyclidine Scrn Ur Amphetamines Screen U Methamphetamin-MDMA U Benzodiazepines Scrn Urine Cocaine Screen U Cannabinoids Screen Ur Drug Screen Comment Ethyl Alcohol 02/10/18 02/10/18 02/10/18 20:55 20:55 21:25 WBC RBC Hgb Hct MCV MCH MCHC RDW RDW Differential Plt Count MPV Immature Gran % (Auto) Neut % (Auto) Lymph % (Auto) [place] % (Auto) Eos % (Auto) Baso % (Auto) Absolute Neuts (auto) Absolute Lymphs (auto) Total Counted Sodium Potassium Chloride Carbon Dioxide Anion Gap BUN Creatinine Estim Creat Clear Calc Est GFR (MDRD) Af Amer Est GFR (MDRD) Non-Af BUN/Creatinine Ratio Glucose Calcium Total Bilirubin Direct Bilirubin AST ALT Alkaline Phosphatase Troponin I < 0.015 Total Protein Albumin Globulin Urine Opiates Screen NEGATIVE Urine Methadone Screen NEGATIVE Ur Barbiturates Screen NEGATIVE Ur Phencyclidine Scrn NEGATIVE Ur Amphetamines Screen NEGATIVE U Methamphetamin-MDMA NEGATIVE U Benzodiazepines Scrn NEGATIVE Urine Cocaine Screen NEGATIVE U Cannabinoids Screen POSITIVE H Ur Drug Screen Comment Ethyl Alcohol 310.0 H* Assessment/Plan All Active Problems Alcohol withdrawal (Acute) 52-year-old male presenting for alcohol withdrawal 1. Acute Alcohol withdrawal Was discharged 2 weeks ago after being admitted and managed for alcohol withdrawal; had to be admitted to the ICU for delirium tremens and required IV precedex drip Last drink was early this morning and drinks about a gallon of vodka daily Admit to PCU with telemetry Put on Librium withdrawal protocol Monitor CIWA score P.o. thiamine, multivitamin and folic acid hydrate with IVF NS PT/OT and case management consult 2. Chest pain to rule out ACS Complains of retrosternal pressure-like chest pain. Chest pain is reducible with palpation making related to musculoskeletal. Initial troponin negative. EKG showed no acute ST changes and showed sinus tachycadia with incomplete RBBB. We will cycle troponin. 3. Suicidal attempt: held the barrel of a gun in his mouth for 12 hours today because he was suicidal. Deneis having currrent suicidal or homicidal ideations. Will need sitter. C rises evaluation when medically cleared. 4. Hypertension: says hes not compliant with his meds because he cannot afford them. On amlodipine and atenolol 5. Seizures precipitated by alcohol withdrawal: on Keppra 6. Bipolar disorder: not compliant with his meds. DVT prophylaxis: heparin GI prophylaxis; PPI Code Visit Inpatient E&M: 41696 Init Hosp L3
--- NOTE | 2018-02-11 02:56 | HP.PCM_ITS ---
History of Present Illness Date of Admission: 02/11/18 Chief Complaint: Alcohol withdrawal The patient is a 52 year old M with past medical history of hypertension and seizure disorder as well as alcohol abuse. He was admitted through the ED on 02/11/2018 for alcohol withdrawal. According to him his girlfriend told him that he needs help with his alcohol intake and so she asked him to come to the ED. He drinks about a gallon of vodka or bourbon daily and his last drink was around 10 AM today. He has been admitted numerous times for alcohol withdrawal the last time in about 2 weeks ago. He admitted to fever and chills and tremors and palpitations that also complained of chest pain which was pressure-like and rated about 8/10 and retrosternal. He denied any abdominal pain, diarrhea vomiting. Review of systems otherwise negative. He states is not been taking any medication for his aforementioned conditions because he cannot afford them. Vitals were significant for tachycardia with heart rate been in the 1 teens at a time of review he was tachypneic as well with respiratory rate around 21. Labs were significant for bicarb of 19 and mild anion gap of 16. CBC was unremarkable. He is been admitted to be managed for alcohol withdrawal and chest pain to rule out ACS. [] Past Medical History Past Medical History (Chronic Problems): Chronic Problems DM type 2 (diabetes mellitus, type 2) (Chronic) Bipolar 1 disorder (Chronic) History of kidney stones (Chronic) Continuous chronic alcoholism (Chronic) up to 1 gallon vodka daily Tobacco use (Chronic) Psychiatric pseudoseizure (Chronic) Homelessness (Chronic) Benign essential hypertension (Chronic) Allergies amoxicillin [Amoxicillin] Allergy (Verified 02/10/18 19:29) Anaphylaxis Penicillins Allergy (Verified 02/10/18 19:29) Anaphylaxis Home Medications: Ambulatory Orders Medication Instructions Recorded Amlodipine [Norvasc] 10 mg PO DAILY 01/30/18 Atenolol [Tenormin (beta clem)] 25 mg PO BID 01/30/18 levETIRAcetam tablet [Keppra 500 mg PO BID 01/30/18 tablet] Folic Acid 1 mg PO DAILYCM #30 tablet 02/01/18 Quetiapine Fumarate [Seroquel] 100 mg PO QHS #30 tablet 02/01/18 Thiamine Hydrochloride [Vitamin B1] 100 mg PO DAILYCM #30 tablet 02/01/18 Surgical History: no surgical history Psychiatric History: Bipolar, Depression Lives: Spouse/ Significant Other Smoking Status: Current every day smoker Tobacco Use: Cigarettes Alcohol: Heavy - one gallon of vodka daily Drugs: None - *Family History Maternal History Items: No pertinent history Paternal History Items: No pertinent history Sibling History Items: No pertinent history Review of Systems Constitutional: Reports: Chills, Fever. Denies: Weight Change HEENT: Denies: Head Aches, Sinus Congestion, Sinus Drainage Cardiovascular: Reports: Chest Pain, Light Headedness, Palpitations. Denies: Chest Pressure, Chest Tightness, Edema, Heaviness, Orthopnea, Syncope Respiratory: Denies: Cough, Shortness of Breath, Shortness of breath at rest, Shortness of breath upon exertion, Sputum production Gastrointestinal: Denies: Abdominal Pain, Nausea, Vomiting Genitourinary: Denies: Dysuria Musculoskeletal: Denies: Joint Pain, Joint Tenderness Skin: Denies: Rash, Wounds Neurological: Denies: Numbness, Tingling, Focal weakness Psychiatric: Denies: Anxiety, Depression, Homicidal Ideations, Suicidal Ideations Hematologic/ Lymphatic: Denies: Easy Bruising, Easy Bleeding Comment: has tremors and is restless VTE Information - Inpt Only VTE Present on Admission: No VTE Pharm Prophylaxis ordered?: Yes - Physical Exam General: Alert, Oriented x3, Cooperative, Confused, - - restless and tremulous HEENT: Atraumatic, PERRLA, EOMI, Normocephalic Oral: Dry Mucosa Neck: Supple, No JVD, Negative Carotid Bruits Lungs: Clear to auscultation, Normal air movement, No rhonchi, No wheeze, No rales Cardiovascular: Regular Rhythm, Normal S1, Normal S2, Tachycardic Abdomen: Bowel Sounds Present, Soft, Non Tender, Non-Distended, No Hepato- splenomegaly Extremities: No clubbing, No cyanosis, No edema, Capillary Refill Less than 3 Seconds Skin: No rashes, No breakdown Musculoskeletal: No Tenderness to Palpation of Joints or Extremities Lymphatic: No Cervical, Supraclavicular, or Inguinal Adenopathy Neurological: Neuro grossly intact, - - very tremulous and has some agitated Psych/Mental Status: Agitated, Anxious, Restless, Alert and oriented to time, place, person, mood and affect Vital Signs Temp Pulse Resp BP Pulse Ox 98.4 F 114 H 21 H 136/88 H 96 02/11/18 02:47 02/11/18 02:47 02/11/18 02:47 02/11/18 02:47 02/11/18 02:47 Oxygen Delivery Method Room Air Weight: 208 lb Body Mass Index (BMI) 30.7 Finger Stick Blood Glucose 98 Laboratory Tests Past 24 Hrs 02/10/18 02/10/18 02/10/18 20:55 20:55 20:55 WBC 6.2 RBC 4.81 Hgb 15.7 Hct 44.9 MCV 93.3 MCH 32.6 H MCHC 35.0 RDW 14.3 RDW Differential 47.2 H Plt Count 266 MPV 8.9 Immature Gran % (Auto) 0.200 Neut % (Auto) 43.7 L Lymph % (Auto) 47.0 H Wallace % (Auto) 4.8 Eos % (Auto) 2.7 Baso % (Auto) 1.6 H Absolute Neuts (auto) 2.7 Absolute Lymphs (auto) 2.93 Total Counted Not Reportable Sodium 142 Potassium 4.2 Chloride 107 Carbon Dioxide 19.0 L Anion Gap 16 H BUN 9 Creatinine 0.81 Estim Creat Clear Calc 107.89 Est GFR (MDRD) Af Amer 129 Est GFR (MDRD) Non-Af 107 BUN/Creatinine Ratio 11.1 Glucose 111 H Calcium 8.2 L Total Bilirubin 0.30 Direct Bilirubin 0.09 AST 109 H ALT 183 H Alkaline Phosphatase 76 Troponin I Total Protein 7.8 Albumin 4.0 Globulin 3.8 Urine Opiates Screen Urine Methadone Screen Ur Barbiturates Screen Ur Phencyclidine Scrn Ur Amphetamines Screen U Methamphetamin-MDMA U Benzodiazepines Scrn Urine Cocaine Screen U Cannabinoids Screen Ur Drug Screen Comment Ethyl Alcohol 02/10/18 02/10/18 02/10/18 20:55 20:55 21:25 WBC RBC Hgb Hct MCV MCH MCHC RDW RDW Differential Plt Count MPV Immature Gran % (Auto) Neut % (Auto) Lymph % (Auto) Wallace % (Auto) Eos % (Auto) Baso % (Auto) Absolute Neuts (auto) Absolute Lymphs (auto) Total Counted Sodium Potassium Chloride Carbon Dioxide Anion Gap BUN Creatinine Estim Creat Clear Calc Est GFR (MDRD) Af Amer Est GFR (MDRD) Non-Af BUN/Creatinine Ratio Glucose Calcium Total Bilirubin Direct Bilirubin AST ALT Alkaline Phosphatase Troponin I < 0.015 Total Protein Albumin Globulin Urine Opiates Screen NEGATIVE Urine Methadone Screen NEGATIVE Ur Barbiturates Screen NEGATIVE Ur Phencyclidine Scrn NEGATIVE Ur Amphetamines Screen NEGATIVE U Methamphetamin-MDMA NEGATIVE U Benzodiazepines Scrn NEGATIVE Urine Cocaine Screen NEGATIVE U Cannabinoids Screen POSITIVE H Ur Drug Screen Comment Ethyl Alcohol 310.0 H* Assessment/Plan All Active Problems Alcohol withdrawal (Acute) 52-year-old male presenting for alcohol withdrawal 1. Acute Alcohol withdrawal * Was discharged 2 weeks ago after being admitted and managed for alcohol withdrawal; had to be admitted to the ICU for delirium tremens and required IV precedex drip * Last drink was early this morning and drinks about a gallon of vodka daily * Admit to PCU with telemetry * Put on Librium withdrawal protocol * Monitor CIWA score * P.o. thiamine, multivitamin and folic acid * hydrate with IVF NS * PT/OT and case management consult * 2. Chest pain to rule out ACS * Complains of retrosternal pressure-like chest pain. * Chest pain is reducible with palpation making related to musculoskeletal. * Initial troponin negative. * EKG showed no acute ST changes and showed sinus tachycadia with incomplete RBBB. We will cycle troponin. * 3. Suicidal attempt: * held the barrel of a gun in his mouth for 12 hours today because he was suicidal. * Deneis having currrent suicidal or homicidal ideations. * Will need sitter. C * rises evaluation when medically cleared. * 4. Hypertension: says hes not compliant with his meds because he cannot afford them. On amlodipine and atenolol 5. Seizures precipitated by alcohol withdrawal: on Keppra 6. Bipolar disorder: not compliant with his meds. DVT prophylaxis: heparin GI prophylaxis; PPI Code Visit Inpatient E&M: 90856 Init Hosp L3
[2018-02-11] MEDS: 0.9% Normal Saline 1,000 ML 125 ML IV ×2 (05:04→12:50)
[2018-02-11 05:32] LABS: Absolute Lymphocyte Count 2.54 X10^3/ul (0.83-4.51); Absolute Neutrophil Count 2.3 X10^3/uL (2.0-7.7); Basophil# 0.07 X10^3/uL; Basophil% 1.3 % (0-1); Eosinophil# 0.13 X10^3/uL; Eosinophils% 2.4 % (0-5); Hematocrit 42.8 % (40-54); Hemoglobin 14.5 g/dl (13.0-16.5); Lymphocyte # 2.54 X10^3/ul (4.0); Lymphocyte % 46.7 % (19-41); Mean Corp Hgb Conc 33.9 g/gl (32-36); Mean Corpuscular Volume 94.5 fL (80-94); Monocyte# 0.38 X10^3/uL; Neutrophil # 2.31 X10^3/uL (2.7-7.7); Neutrophil % 42.4 % (47-70); Platelet Count 229 K/mm3 (150-450); RBC Distribution Width CV 14.5 % (11.6-14.6); RBC Distribution Width SD 49.8 fl (35.1-43.9); Red Blood Count 4.53 M/mm3 (4.6-6.2); White Blood Count 5.4 K/mm3 (4.4-11.0)
[2018-02-11 05:44] LABS: POSITIVE COUNT NO; POSITIVE DIFFERENTIAL NO; POSITIVE MORPHOLOGY NO
[2018-02-11 06:10] LABS: Anion Gap 13 (5-15); BUN 9 mg/dL (7-18); BUN/Creat Ratio 11.9 RATIO (10-20); Calcium,Total 8.1 mg/dL (8.5-10.1); Chloride 107 mmol/L (98-107); Creatinine, Serum 0.76 mg/dL (0.70-1.30); EST Glomerular Filtration Rate 115 mL/min (>60); Est Glom Filt Rate - Afr Amer 139 mL/min (>60); Estimated Creatinine Clearance 114.99 ml/min; Glucose 90 mg/dL (74-106); Magnesium 1.9 mg/dL (1.6-2.6); Potassium 3.5 mmol/L (3.5-5.1); Sodium Level 142 mmol/L (136-145)
[2018-02-11 07:11] LABS: Bedside Glucose 81 mg/dL (70-110)
[2018-02-11] MEDS: LORazepam 1 MG Tablet 2 MG PO ×2 (08:16→12:49)
[2018-02-11] MEDS: amLODIPine 10 MG Tablet PO (08:16)
[2018-02-11] MEDS: Multivitamins,Ther W-Minerals Tablet 1 TABLET PO (08:17)
[2018-02-11] MEDS: Atenolol 25 MG Tablet PO (08:17)
[2018-02-11] MEDS: Famotidine 20 MG Tablet PO (08:18)
[2018-02-11] MEDS: Folic Acid 1 MG Tablet PO (08:18)
[2018-02-11] MEDS: levETIRAcetam 500 MG Tablet PO (08:18)
[2018-02-11] MEDS: Thiamine Hydrochloride 100 MG Tablet PO (08:18)
[2018-02-11] MEDS: Enoxaparin 40 MG/0.4 ML Syringe SC (08:21)
[2018-02-11] MEDS: chlordiazePOXIDE 25 MG Capsule 50 MG PO (10:02)
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
--- NOTE | 2018-02-11 13:31 | PCM.PROGNOTE ---
Subjective: Patient seen and examined. Patient with significant tremors, anxiety. He denies suicidal ideation. Wishes to be discharged so he can move out of his apartment. - Physical Exam General: Alert, Oriented x3, Cooperative HEENT: Atraumatic, PERRLA, EOMI, Normocephalic Oral: Moist Mucosa Neck: Supple, No JVD, Negative Carotid Bruits Lungs: Clear to auscultation, Normal air movement Cardiovascular: Regular Rhythm, Normal S1, Normal S2, No murmurs, Tachycardic Abdomen: Bowel Sounds Present, Soft, Non Tender, Non-Distended Extremities: No clubbing, No cyanosis, No edema, Capillary Refill Less than 3 Seconds Skin: No rashes, No breakdown Musculoskeletal: No Tenderness to Palpation of Joints or Extremities Neurological: Cranial nerves II-XII grossly intact, Neuro grossly intact Psych/Mental Status: Anxious, Restless Vital Signs Temp Pulse Resp BP Pulse Ox 98.2 F 106 H 18 151/92 H 93 02/11/18 09:15 02/11/18 09:15 02/11/18 09:15 02/11/18 09:15 02/11/18 09:15 Oxygen Delivery Method Room Air Weight: 199 lb 1.239 oz Body Mass Index (BMI) 29.4 Finger Stick Blood Glucose 98 Intake and Output for Last 24 Hours 02/09/18 02/10/18 02/11/18 23:59 23:59 23:59 Intake Total 284 / 284 Balance 284 / 284 Laboratory Tests Past 24 Hrs 02/10/18 02/10/18 02/10/18 20:55 20:55 20:55 WBC 6.2 RBC 4.81 Hgb 15.7 Hct 44.9 MCV 93.3 MCH 32.6 H MCHC 35.0 RDW 14.3 RDW Differential 47.2 H Plt Count 266 MPV 8.9 Immature Gran % (Auto) 0.200 Neut % (Auto) 43.7 L Lymph % (Auto) 47.0 H [place] % (Auto) 4.8 Eos % (Auto) 2.7 Baso % (Auto) 1.6 H Absolute Neuts (auto) 2.7 Absolute Lymphs (auto) 2.93 Total Counted Not Reportable Sodium 142 Potassium 4.2 Chloride 107 Carbon Dioxide 19.0 L Anion Gap 16 H BUN 9 Creatinine 0.81 Estim Creat Clear Calc 107.89 Est GFR (MDRD) Af Amer 129 Est GFR (MDRD) Non-Af 107 BUN/Creatinine Ratio 11.1 Glucose 111 H Calcium 8.2 L Magnesium Total Bilirubin 0.30 Direct Bilirubin 0.09 AST 109 H ALT 183 H Alkaline Phosphatase 76 Troponin I Total Protein 7.8 Albumin 4.0 Globulin 3.8 Urine Opiates Screen Urine Methadone Screen Ur Barbiturates Screen Ur Phencyclidine Scrn Ur Amphetamines Screen U Methamphetamin-MDMA U Benzodiazepines Scrn Urine Cocaine Screen U Cannabinoids Screen Ur Drug Screen Comment Ethyl Alcohol 02/10/18 02/10/18 02/10/18 20:55 20:55 21:25 WBC RBC Hgb Hct MCV MCH MCHC RDW RDW Differential Plt Count MPV Immature Gran % (Auto) Neut % (Auto) Lymph % (Auto) [place] % (Auto) Eos % (Auto) Baso % (Auto) Absolute Neuts (auto) Absolute Lymphs (auto) Total Counted Sodium Potassium Chloride Carbon Dioxide Anion Gap BUN Creatinine Estim Creat Clear Calc Est GFR (MDRD) Af Amer Est GFR (MDRD) Non-Af BUN/Creatinine Ratio Glucose Calcium Magnesium Total Bilirubin Direct Bilirubin AST ALT Alkaline Phosphatase Troponin I < 0.015 Total Protein Albumin Globulin Urine Opiates Screen NEGATIVE Urine Methadone Screen NEGATIVE Ur Barbiturates Screen NEGATIVE Ur Phencyclidine Scrn NEGATIVE Ur Amphetamines Screen NEGATIVE U Methamphetamin-MDMA NEGATIVE U Benzodiazepines Scrn NEGATIVE Urine Cocaine Screen NEGATIVE U Cannabinoids Screen POSITIVE H Ur Drug Screen Comment Ethyl Alcohol 310.0 H* 02/11/18 02/11/18 02/11/18 05:20 05:20 05:20 WBC 5.4 RBC 4.53 L Hgb 14.5 Hct 42.8 MCV 94.5 H MCH 32.0 MCHC 33.9 RDW 14.5 RDW Differential 49.8 H Plt Count 229 MPV 9.0 Immature Gran % (Auto) 0.200 Neut % (Auto) 42.4 L Lymph % (Auto) 46.7 H [place] % (Auto) 7.0 Eos % (Auto) 2.4 Baso % (Auto) 1.3 H Absolute Neuts (auto) 2.3 Absolute Lymphs (auto) 2.54 Total Counted Not Reportable Sodium 142 Potassium 3.5 Chloride 107 Carbon Dioxide 22.0 Anion Gap 13 BUN 9 Creatinine 0.76 Estim Creat Clear Calc 114.99 Est GFR (MDRD) Af Amer 139 Est GFR (MDRD) Non-Af 115 BUN/Creatinine Ratio 11.9 Glucose 90 Calcium 8.1 L Magnesium 1.9 Total Bilirubin Direct Bilirubin AST ALT Alkaline Phosphatase Troponin I < 0.015 Total Protein Albumin Globulin Urine Opiates Screen Urine Methadone Screen Ur Barbiturates Screen Ur Phencyclidine Scrn Ur Amphetamines Screen U Methamphetamin-MDMA U Benzodiazepines Scrn Urine Cocaine Screen U Cannabinoids Screen Ur Drug Screen Comment Ethyl Alcohol 42.0 02/11/18 02/11/18 08:05 10:56 WBC RBC Hgb Hct MCV MCH MCHC RDW RDW Differential Plt Count MPV Immature Gran % (Auto) Neut % (Auto) Lymph % (Auto) [place] % (Auto) Eos % (Auto) Baso % (Auto) Absolute Neuts (auto) Absolute Lymphs (auto) Total Counted Sodium Potassium Chloride Carbon Dioxide Anion Gap BUN Creatinine Estim Creat Clear Calc Est GFR (MDRD) Af Amer Est GFR (MDRD) Non-Af BUN/Creatinine Ratio Glucose Calcium Magnesium Total Bilirubin Direct Bilirubin AST ALT Alkaline Phosphatase Troponin I < 0.015 < 0.015 Total Protein Albumin Globulin Urine Opiates Screen Urine Methadone Screen Ur Barbiturates Screen Ur Phencyclidine Scrn Ur Amphetamines Screen U Methamphetamin-MDMA U Benzodiazepines Scrn Urine Cocaine Screen U Cannabinoids Screen Ur Drug Screen Comment Ethyl Alcohol POC Glucose 02/11/18 07:07 POC Glucose 81 Medical Necessity - Tobacco Use Smoking Status: Current every day smoker Tobacco Use: Cigarettes Assessment/Plan All Active Problems Alcohol withdrawal (Acute) 1. Acute alcohol withdrawal-alcohol level 310 on admission. Alcohol level today 42. CIWA currently 27. History of seizures with alcohol withdrawal. Continue CIWA/Ativan protocol. Recent admission for alcohol withdrawal requiring Precedex drip and ICU. Continue thiamine, multivitamin and folic acid supplementation. IV fluids. Scheduled Librium. Recommended inpatient treatment given recurrent alcohol use with desire to stop drinking. Patient states he is not able to do inpatient treatment at this time due to needing to move out of his apartment. 2. Chest pain-ACS ruled out. Patient denies further chest pain. EKG without ST-T changes. Troponin negative. 3. Suicidal attempt-prior to admission. Patient denies current suicidal or homicidal ideations. Reports recent stress due to being evicted from his apartment. Crisis evaluated patient and cleared patient from their standpoint. 4. History of seizures due to alcohol withdrawal-seizure precautions. Continue Keppra. 5. Hypertension-continue amlodipine, atenolol. 6. Bipolar disorder-continue Seroquel. DVT prophylaxis-heparin. This patient was seen by WILFRIDO Salazar under the supervision of Dr. Mccormick.
--- NOTE | 2018-02-11 15:12 | DS.PCM_ITS ---
<Alida Edmond - Last Filed: 02/11/18 15:18> Discharge Date and Diagnosis Date of Admission: 02/11/18 Date of Discharge: 02/11/18 - Primary Discharge Diagnosis 1. Acute alcohol withdrawal 2. Chest pain, ACS ruled out 3. Suicide attempt 4. History of seizures due to alcohol withdrawal 5. Hypertension 6. Bipolar disorder - Secondary Discharge Diagnosis Chronic Problems DM type 2 (diabetes mellitus, type 2) (Chronic) Bipolar 1 disorder (Chronic) History of kidney stones (Chronic) Continuous chronic alcoholism (Chronic) up to 1 gallon vodka daily Tobacco use (Chronic) Psychiatric pseudoseizure (Chronic) Homelessness (Chronic) Benign essential hypertension (Chronic) Hospital Course and Treatment Operations: None Procedures: None Summary of Care Provided: The patient is a 52 year old M admitted 02/11/2018 due to alcohol withdrawal. 1. Acute alcohol withdrawal-alcohol level 310 on admission. Alcohol level to day 42. CIWA currently 27. History of seizures with alcohol withdrawal. Patient received CIWA/Ativan protocol and scheduled Librium. Recent admission for alcohol withdrawal requiring Precedex drip and ICU. Continue thiamine, multivitamin and folic acid supplementation. Recommended inpatient treatment given recurrent alcohol use with desire to stop drinking. Patient states he is not able to do inpatient treatment at this time due to needing to move out of his apartment. Patient signed out AGAINST MEDICAL ADVICE. 2. Chest pain-ACS ruled out. Patient denies further chest pain. EKG without ST-T changes. Troponin negative. 3. Suicidal attempt-prior to admission. Patient denies current suicidal or homicidal ideations. Reports recent stress due to being evicted from his apartment. Crisis evaluated patient and cleared patient from their standpoint. Patient denies having a gun in his apartment. 4. History of seizures due to alcohol withdrawal-seizure precautions. Continue Keppra. 5. Hypertension-continue amlodipine, atenolol. 6. Bipolar disorder-continue Seroquel. General: Alert, Oriented x3, Cooperative HEENT: Atraumatic, PERRLA, EOMI, Normocephalic Oral: Moist Mucosa Neck: Supple, No JVD, Negative Carotid Bruits Lungs: Clear to auscultation, Normal air movement Cardiovascular: Regular Rhythm, Normal S1, Normal S2, No murmurs, Tachycardic Abdomen: Bowel Sounds Present, Soft, Non Tender, Non-Distended Extremities: No clubbing, No cyanosis, No edema, Capillary Refill Less than 3 Seconds Skin: No rashes, No breakdown Musculoskeletal: No Tenderness to Palpation of Joints or Extremities Neurological: Cranial nerves II-XII grossly intact, Neuro grossly intact Psych/Mental Status: Anxious, Restless Patient seen and examined prior to discharge. Physical assessment as noted above. Patient actively going through withdrawal, CIWA 27. Strongly encouraged to stay in the hospital for alcohol withdrawal treatment, especially given history of seizures during alcohol withdrawal. Patient opted to sign out AGAINST MEDICAL ADVICE, saying he had to clean out his apartment due to being evicted. This patient was seen by WILFRIDO Salazar under the supervision of Dr. Mccormick. - Physical Exam Vital Signs Temp Pulse Resp BP Pulse Ox 98.2 F 74 18 151/92 H 93 02/11/18 09:15 02/11/18 11:12 02/11/18 09:15 02/11/18 09:15 02/11/18 09:15 Oxygen Delivery Method Room Air Weight: 199 lb 1.239 oz Body Mass Index (BMI) 29.4 Finger Stick Blood Glucose 98 Intake and Output for Last 24 Hours 02/09/18 02/10/18 02/11/18 23:59 23:59 23:59 Intake Total 1629 / 1629 Balance 1629 / 1629 Laboratory Tests Past 24 Hrs 02/10/18 02/10/18 02/10/18 20:55 20:55 20:55 WBC 6.2 RBC 4.81 Hgb 15.7 Hct 44.9 MCV 93.3 MCH 32.6 H MCHC 35.0 RDW 14.3 RDW Differential 47.2 H Plt Count 266 MPV 8.9 Immature Gran % (Auto) 0.200 Neut % (Auto) 43.7 L Lymph % (Auto) 47.0 H [place] % (Auto) 4.8 Eos % (Auto) 2.7 Baso % (Auto) 1.6 H Absolute Neuts (auto) 2.7 Absolute Lymphs (auto) 2.93 Total Counted Not Reportable Sodium 142 Potassium 4.2 Chloride 107 Carbon Dioxide 19.0 L Anion Gap 16 H BUN 9 Creatinine 0.81 Estim Creat Clear Calc 107.89 Est GFR (MDRD) Af Amer 129 Est GFR (MDRD) Non-Af 107 BUN/Creatinine Ratio 11.1 Glucose 111 H Calcium 8.2 L Magnesium Total Bilirubin 0.30 Direct Bilirubin 0.09 AST 109 H ALT 183 H Alkaline Phosphatase 76 Troponin I Total Protein 7.8 Albumin 4.0 Globulin 3.8 Urine Opiates Screen Urine Methadone Screen Ur Barbiturates Screen Ur Phencyclidine Scrn Ur Amphetamines Screen U Methamphetamin-MDMA U Benzodiazepines Scrn Urine Cocaine Screen U Cannabinoids Screen Ur Drug Screen Comment Ethyl Alcohol 02/10/18 02/10/18 02/10/18 20:55 20:55 21:25 WBC RBC Hgb Hct MCV MCH MCHC RDW RDW Differential Plt Count MPV Immature Gran % (Auto) Neut % (Auto) Lymph % (Auto) [place] % (Auto) Eos % (Auto) Baso % (Auto) Absolute Neuts (auto) Absolute Lymphs (auto) Total Counted Sodium Potassium Chloride Carbon Dioxide Anion Gap BUN Creatinine Estim Creat Clear Calc Est GFR (MDRD) Af Amer Est GFR (MDRD) Non-Af BUN/Creatinine Ratio Glucose Calcium Magnesium Total Bilirubin Direct Bilirubin AST ALT Alkaline Phosphatase Troponin I < 0.015 Total Protein Albumin Globulin Urine Opiates Screen NEGATIVE Urine Methadone Screen NEGATIVE Ur Barbiturates Screen NEGATIVE Ur Phencyclidine Scrn NEGATIVE Ur Amphetamines Screen NEGATIVE U Methamphetamin-MDMA NEGATIVE U Benzodiazepines Scrn NEGATIVE Urine Cocaine Screen NEGATIVE U Cannabinoids Screen POSITIVE H Ur Drug Screen Comment Ethyl Alcohol 310.0 H* 02/11/18 02/11/18 02/11/18 05:20 05:20 05:20 WBC 5.4 RBC 4.53 L Hgb 14.5 Hct 42.8 MCV 94.5 H MCH 32.0 MCHC 33.9 RDW 14.5 RDW Differential 49.8 H Plt Count 229 MPV 9.0 Immature Gran % (Auto) 0.200 Neut % (Auto) 42.4 L Lymph % (Auto) 46.7 H [place] % (Auto) 7.0 Eos % (Auto) 2.4 Baso % (Auto) 1.3 H Absolute Neuts (auto) 2.3 Absolute Lymphs (auto) 2.54 Total Counted Not Reportable Sodium 142 Potassium 3.5 Chloride 107 Carbon Dioxide 22.0 Anion Gap 13 BUN 9 Creatinine 0.76 Estim Creat Clear Calc 114.99 Est GFR (MDRD) Af Amer 139 Est GFR (MDRD) Non-Af 115 BUN/Creatinine Ratio 11.9 Glucose 90 Calcium 8.1 L Magnesium 1.9 Total Bilirubin Direct Bilirubin AST ALT Alkaline Phosphatase Troponin I < 0.015 Total Protein Albumin Globulin Urine Opiates Screen Urine Methadone Screen Ur Barbiturates Screen Ur Phencyclidine Scrn Ur Amphetamines Screen U Methamphetamin-MDMA U Benzodiazepines Scrn Urine Cocaine Screen U Cannabinoids Screen Ur Drug Screen Comment Ethyl Alcohol 42.0 02/11/18 02/11/18 08:05 10:56 WBC RBC Hgb Hct MCV MCH MCHC RDW RDW Differential Plt Count MPV Immature Gran % (Auto) Neut % (Auto) Lymph % (Auto) [place] % (Auto) Eos % (Auto) Baso % (Auto) Absolute Neuts (auto) Absolute Lymphs (auto) Total Counted Sodium Potassium Chloride Carbon Dioxide Anion Gap BUN Creatinine Estim Creat Clear Calc Est GFR (MDRD) Af Amer Est GFR (MDRD) Non-Af BUN/Creatinine Ratio Glucose Calcium Magnesium Total Bilirubin Direct Bilirubin AST ALT Alkaline Phosphatase Troponin I < 0.015 < 0.015 Total Protein Albumin Globulin Urine Opiates Screen Urine Methadone Screen Ur Barbiturates Screen Ur Phencyclidine Scrn Ur Amphetamines Screen U Methamphetamin-MDMA U Benzodiazepines Scrn Urine Cocaine Screen U Cannabinoids Screen Ur Drug Screen Comment Ethyl Alcohol POC Glucose 02/11/18 07:07 POC Glucose 81 Home Medications: Medications to take at Discharge Amlodipine [Norvasc] 10 mg PO DAILY 01/30/18 Atenolol [Tenormin (beta clem)] 25 mg PO BID 01/30/18 levETIRAcetam tablet [Keppra tablet] 500 mg PO BID 01/30/18 Folic Acid 1 mg PO DAILYCM #30 tablet 02/01/18 Quetiapine Fumarate [Seroquel] 100 mg PO QHS #30 tablet 02/01/18 Thiamine Hydrochloride [Vitamin B1] 100 mg PO DAILYCM #30 tablet 02/01/18 Primary Care Physician: Care Physician,No Primary [Primary Care Provider] - Disposition: Against Medical Advice Minutes spent on discharge:: 35 Patient Condition:: Poor Medical Necessity - Tobacco Use Smoking Status: Current every day smoker Tobacco Use: Cigarettes Meaningful Use Info Meaningful Use Diagnoses (Choose all that apply): None applicable <Ian Mccormick - Last Filed: 02/12/18 07:27> Discharge Date and Diagnosis - Secondary Discharge Diagnosis Chronic Problems DM type 2 (diabetes mellitus, type 2) (Chronic) Bipolar 1 disorder (Chronic) History of kidney stones (Chronic) Continuous chronic alcoholism (Chronic) up to 1 gallon vodka daily Tobacco use (Chronic) Psychiatric pseudoseizure (Chronic) Homelessness (Chronic) Benign essential hypertension (Chronic) Hospital Course and Treatment Summary of Care Provided: This patient was seen in conjunction with WILFRIDO Salazar . I have independently interviewed and examined the patient and reviewed pertinent historical, laboratory, and other data. Please refer to WILFRIDO Salazar note for details of this patient's presentation, findings, and recommendations. I have reviewed WILFRIDO Salazar note and concur with documented findings. In brief, patient is a 52-year-old gentleman admitted with alcohol intoxication. Patient was admitted to a monitored bed for medical stabilization he however signed out AGAINST MEDICAL ADVICE yesterday after him being admitted. Hospital course; as elicited above by Alida Edmond NP?C - Physical Exam Vital Signs Temp Pulse Resp BP Pulse Ox 98.2 F 74 18 151/92 H 93 02/11/18 09:15 02/11/18 11:12 02/11/18 09:15 02/11/18 09:15 02/11/18 09:15 Oxygen Delivery Method Room Air Weight: 90.3 kg Body Mass Index (BMI) 29.4 Finger Stick Blood Glucose 98 Intake and Output for Last 24 Hours 02/10/18 02/11/18 02/12/18 23:59 23:59 23:59 Intake Total 1629 / 1629 Balance 1629 / 1629 Laboratory Tests Past 24 Hrs 02/11/18 02/11/18 08:05 10:56 Troponin I < 0.015 < 0.015 Code Visit Inpatient E&M: 65773 Disch Hosp
--- NOTE | 2018-02-11 15:30 | NURSING ---
Patient has previously been cleared of suicide precautions by JOSE. Stating that he is now leaving AMA. Raina TELEGRAPH[employer] IN[employer]UMENT SUPERVISOR notified, risks of leaving AMA discussed with patient, pt signed AMA paperwork.
== END 2018-02-11 16:23 | disposition left against medical advice (07) | DRG 894 ==
LOC: ED 20:02 → PCU 02-11 02:39
PROVIDERS: Emergency Medicine; Admitting Provider Student in an Organized Health Care Education/Training Program; Emergency Provider Emergency Medicine; Visit Provider Internal Medicine
DX: F10.239 Alcohol dependence with withdrawal, unspecified (principal); R45.851 Suicidal ideations; Y90.8 Blood alcohol level of 240 mg/100 ml or more; I10 Essential (primary) hypertension; F31.9 Bipolar disorder, unspecified; R07.9 Chest pain, unspecified; E11.9 Type 2 diabetes mellitus without complications; Z87.442 Personal history of urinary calculi; F10.229 Alcohol dependence with intoxication, unspecified
CPT/HCPCS: 36415; 80048; 80076; 80307; 80320; 82962; 83735; 84484; 85025; 93005; 97161; 97165; 99285; 99406; J7030; A4216; G0480

== ENCOUNTER 2018-02-13 00:07 | Inpatient (IN) | payer SELFPAY ==
[2018-02-11 04:49] VITALS: BMI 29.4
[2018-02-13] VITALS (23 sets, daily range): BP systolic 110–142; BP diastolic 71–97; PULSE 69–114; RESP 10–25; TEMP 36.7–37.3; O2SAT 93–98; BMI 27.8; BMI 30.2
[2018-02-13 00:48] LABS: Absolute Lymphocyte Count 1.39 X10^3/ul (0.83-4.51); Absolute Neutrophil Count 7.2 X10^3/uL (2.0-7.7); Basophil# 0.02 X10^3/uL; Basophil% 0.2 % (0-1); Eosinophil# 0.01 X10^3/uL; Eosinophils% 0.1 % (0-5); Hematocrit 41.2 % (40-54); Hemoglobin 14.5 g/dl (13.0-16.5); Lymphocyte # 1.39 X10^3/ul (4.0); Mean Corp Hgb Conc 35.2 g/gl (32-36); Mean Corpuscular Volume 93.6 fL (80-94); Mean Platelet Vol. 9.2 fl (6.2-12.0); Monocyte# 0.61 X10^3/uL; Monocyte% 6.6 % (0-10); Neutrophil # 7.23 X10^3/uL (2.7-7.7); Neutrophil % 77.9 % (47-70); Platelet Count 184 K/mm3 (150-450); RBC Distribution Width CV 13.9 % (11.6-14.6); RBC Distribution Width SD 46.2 fl (35.1-43.9); White Blood Count 9.3 K/mm3 (4.4-11.0)
[2018-02-13 00:51] LABS: POSITIVE COUNT NO; POSITIVE DIFFERENTIAL NO; POSITIVE MORPHOLOGY NO
[2018-02-13 01:11] LABS: ALB/GLOB Ratio 1.2 RATIO (0.9-2.4); AST(SGOT) 28 U/L (15-37); Acetaminophen (Tylenol) Level < 10.0 ug/mL (10.0-30.0); Alanine Aminotransfer ALT/SGPT 93 U/L (16-61); Alkaline Phosphatase 72 U/L (45-117); Anion Gap 12 (5-15); BUN 10 mg/dL (7-18); BUN/Creat Ratio 3.6 RATIO (10-20); Calcium,Total 8.6 mg/dL (8.5-10.1); Chloride 106 mmol/L (98-107); Creatinine, Serum 2.78 mg/dL (0.70-1.30); EST Glomerular Filtration Rate 26 mL/min (>60); Est Glom Filt Rate - Afr Amer 31 mL/min (>60); Estimated Creatinine Clearance 31.44 ml/min; Globulin 3.4 g/dL (2.2-4.2); Glucose 127 mg/dL (74-106); Potassium 3.2 mmol/L (3.5-5.1); Protein, Total 7.4 g/dL (6.4-8.2); Sodium Level 138 mmol/L (136-145)
--- NOTE | 2018-02-13 01:11 | ED.RN ---
THREE NURSES ATTEMPTED TO START IV'S AND TOTAL OF 5 ATTEMPTS. LABS WERE DRAWN FROM THIS NURSES ATTEMPT. DR. JASSO AWARE. NO NEW ORDERS.
[2018-02-13] MEDS: Ondansetron 4 MG/2 ML Vial IV (01:29)
[2018-02-13] MEDS: 0.9% Normal Saline 1,000 ML 1000 ML IV (01:31)
[2018-02-13] MEDS: Activated Charcoal 50 GM/240 ML BOT PO (01:36)
[2018-02-13] MEDS: LORazepam 2 MG/ML Syringe 1 MG IV (02:01)
[2018-02-13] MEDS: 0.9% Normal Saline 1,000 ML 999 ML IV (02:01)
--- NOTE | 2018-02-13 02:11 | ED.VISSUMM ---
- ER Visit Summary Date of Service: 02/13/18 Chief Complaint: Overdose History of Present Illness: The patient is a 52 M who goes to the counseling center. He reports that he got an argument with his girlfriend and they have not talked for approximately 5 hours. Because of that he attempted suicide by overdosing on pills. When asked what he he taught he points to a bowl full of pills and states that he took a handful. He is unsure what any of these are as they belonged to someone else. States that he took them approximately 20 minutes ago. I discussed the patient that he was here for alcohol withdrawal 2 days ago and signed out AGAINST MEDICAL ADVICE. When asked why he did this he reports because I wanted to drink. I discussed them the fact that his alcohol level is essentially 0 and he states that that is because I have been drinking bourbon mixed with rubbing alcohol and [place] mist. Physical Examination: Vitals: Stable. Afebrile. General: Well-nourished and well-developed. Head: Normocephalic atraumatic. Neck: Supple, no lymphadenopathy. No JVD. Nontender. Cardiovascular: Regular rate and rhythm. No murmurs. Respiratory: No respiratory distress. Clear to auscultation bilaterally. Abdominal: Soft, mild diffuse tenderness to palpation, nondistended, normal bowel sounds. No guarding, rebound, or peritoneal signs. Back: Nontender. Extremities: Nontender, no edema. Skin: Normal color, no rash. Neurologic: Alert and oriented ?3. Cranial nerves II through XII are intact. Normal strength and sensation. Mental status exam: Patient appears their stated age. Good posture and grooming. Good eye contact. Normal rate, volume, and latency of speech. No homicidal ideation. No auditory or visual hallucinations. Flow of thought is logical. Insight and judgment is fair. Test Results: EKG is sinus tach at [address] changes. His QTC is 474. However it is range between 459-562 in the past month. CBC is marked for 7 neutrophils 78 lymphocytes of 15. Chem-7 is more for potassium 3.2, CO2 of 20, creatinine 2.78, glucose of 127. His creatinine in 2018 has ranged between 0.73 and 2.57. His most recent creatinine was 0.76. LFTs remarkable for an ALT of 93 which is lower than earlier this month. Serum ketones are negative. Alcohol is negative. Aspirin level is 6. Tylenol level is less than 10. His calculated serum osmolarity are 287 and his measured serum osmolality of 318. This gives an osmolar gap of 31. Emergency Department Course and Treatment: Patient was given a liter of normal saline IV. He was given charcoal p.o., Zofran and Ativan IV. I looked up all of the medications that he had in that bowl. They included: Nabumetone, acyclovir, valacyclovir, Tylenol, Tylenol/dextromethorphan/guaifenesin/phenylephrine, Keppra, Norvasc, bupropion XL (both 300 and 150 mg doses), Protonix, Abilify, Nexium, folic acid, Celexa, bupropion SR, metoprolol tartrate, and Amitiza. The strength of these and number of pills is included on the T-sheet. However, I do not have bottles to know how many pills should have been left. Treatment Plan: The patient was discussed with poison control and Dr. Ayala. He will be admitted to the ICU for further evaluation and treatment. Poison control suggested repeating his aspirin level, Tylenol level, and renal panel. He also stated to follow the serum osmole and make sure that this was closing. Disposition: Admitted to the ICU in serious condition. Impression: 1. Suicidal ideation. 2. Polysubstance overdose. 3. Acute kidney injury. 4. History of alcoholism. 5. Reported isopropyl alcohol ingestion. 6. Osmolar gap of 31. 7. Critical care time 45 minutes. This note was generated with [employer] dictation software. It may contain incorrect words, spelling, and punctuation that were not noted in review of the chart prior to signing ED Disposition - Plan for ED Patient: Chief Complaint: Suicidal Referrals: Care Physician,No Primary [Primary Care Provider] -
[2018-02-13 03:05] LABS: Osmolality, Serum 318 mOsm/KG (275-295)
--- NOTE | 2018-02-13 03:26 | HP.PCM_ITS ---
History of Present Illness Date of Admission: 02/13/18 Chief Complaint: alcohol withdrawal The patient is a 52 year old M with a PMH of alcohol abuse, hypertension, diabetes mellitus. He was admitted through the ED with a complaint of alcohol withdrawal and polysubstance overdose. Patient is a chronic alcoholic who was recently admitted for alcohol withdrawal and signed out AGAINST MEDICAL ADVICE because he wanted to go drink. He drinks about a gallon of vodka and Geovanni every day and his last drink was this afternoon. He states that he had run out of alcohol and so he drank about half a bottle of rubbing alcohol to compensate. He also had a fight with his girlfriend and in a fit of anger took about 16 pills which she did not know what they wear. He decided to call the squad to come to the ED after taking the pills. Pills were reviewed by ED physician and they contain amlodipine, BuSpar and metoprolol. In the ED, EKG shows sinus tachycardia with heart rate of 114 and incomplete right bundle branch block as well as nonspecific ST changes. His QTC was prolonged at 474. CBC was unremarkable and BMP showed potassium of 3.2 and creatinine of 2.78 with his baseline being less than 1. Bicarb was also around 20. Alcohol level was negative and serum ketones were also negative. Aspirin level was 6 and Tylenol level was less than 10. His measured serum osmolality was 318 and his calculated serum osmolality was 287 given an osmolar gap of 31. He has been admitted to be monitored for alcohol withdrawal, suicide attempt and [place] I. [] Past Medical History Past Medical History (Chronic Problems): Chronic Problems DM type 2 (diabetes mellitus, type 2) (Chronic) Bipolar 1 disorder (Chronic) History of kidney stones (Chronic) Continuous chronic alcoholism (Chronic) up to 1 gallon vodka daily Tobacco use (Chronic) Psychiatric pseudoseizure (Chronic) Homelessness (Chronic) Benign essential hypertension (Chronic) Allergies amoxicillin [Amoxicillin] Allergy (Verified 02/10/18 19:29) Anaphylaxis Penicillins Allergy (Verified 02/10/18 19:29) Anaphylaxis Home Medications: Ambulatory Orders Medication Instructions Recorded Amlodipine [Norvasc] 10 mg PO DAILY 01/30/18 Atenolol [Tenormin (beta clem)] 25 mg PO BID 01/30/18 levETIRAcetam tablet [Keppra 500 mg PO BID 01/30/18 tablet] Folic Acid 1 mg PO DAILYCM #30 tablet 02/01/18 Quetiapine Fumarate [Seroquel] 100 mg PO QHS #30 tablet 02/01/18 Thiamine Hydrochloride [Vitamin B1] 100 mg PO DAILYCM #30 tablet 02/01/18 Surgical History: no surgical history Psychiatric History: Bipolar, Depression Lives: Alone Smoking Status: Current every day smoker Tobacco Use: Cigarettes Alcohol: Heavy Drugs: None - *Family History Maternal History Items: No pertinent history Paternal History Items: No pertinent history Sibling History Items: No pertinent history Review of Systems Constitutional: Denies: Chills, Fever, Malaise, Weakness, Weight Change, Fatigue Eyes: Denies: Blurred vision HEENT: Denies: Head Aches, Sinus Congestion, Sinus Drainage Cardiovascular: Denies: Chest Pain, Palpitations Respiratory: Denies: Cough, Shortness of Breath, Shortness of breath at rest, Shortness of breath upon exertion, Sputum production Gastrointestinal: Reports: Abdominal Pain - Mild epigastric pain.. Denies: Diarrhea, Nausea, Vomiting Genitourinary: Denies: Dysuria Musculoskeletal: Denies: Joint Pain, Joint Tenderness Skin: Denies: Rash, Wounds Neurological: Reports: Tremor. Denies: Balance problems Psychiatric: Reports: Anxiety Hematologic/ Lymphatic: Denies: Easy Bruising, Easy Bleeding VTE Information - Inpt Only VTE Present on Admission: No VTE Pharm Prophylaxis ordered?: Yes - Physical Exam General: Alert, Oriented x3, - - very agitated, tremulous HEENT: Atraumatic, PERRLA, EOMI, Normocephalic Oral: Dry Mucosa Neck: Supple, No JVD, Negative Carotid Bruits Lungs: Clear to auscultation, Normal air movement, No rhonchi, No wheeze, No rales Cardiovascular: Regular rate, Normal S1, Normal S2, No murmurs, Tachycardic Abdomen: Bowel Sounds Present, Soft, Non Tender, Non-Distended, No Hepato- splenomegaly Extremities: No clubbing, No cyanosis, No edema, Capillary Refill Less than 3 Seconds Skin: No rashes, No breakdown Lymphatic: No Cervical, Supraclavicular, or Inguinal Adenopathy Neurological: Cranial nerves II-XII grossly intact, Motor Exam 5/5 strength throughout, - - having tremors of both UEs, mainly of the RUE, which improves significantly when hand is held Psych/Mental Status: Agitated, Anxious, - - tremulous Vital Signs Temp Pulse Resp BP Pulse Ox 98.2 F 114 H 25 H 125/97 H 98 02/13/18 00:08 02/13/18 02:03 02/13/18 02:03 02/13/18 02:03 02/13/18 02:03 Oxygen Delivery Method Room Air Weight: 188 lb 14.978 oz Body Mass Index (BMI) 27.8 Finger Stick Blood Glucose 98 Laboratory Tests Past 24 Hrs 02/13/18 02/13/18 02/13/18 00:35 00:35 00:35 WBC 9.3 RBC 4.40 L Hgb 14.5 Hct 41.2 MCV 93.6 MCH 33.0 H MCHC 35.2 RDW 13.9 RDW Differential 46.2 H Plt Count 184 MPV 9.2 Immature Gran % (Auto) 0.200 Neut % (Auto) 77.9 H Lymph % (Auto) 15.0 L [place] % (Auto) 6.6 Eos % (Auto) 0.1 Baso % (Auto) 0.2 Absolute Neuts (auto) 7.2 Absolute Lymphs (auto) 1.39 Total Counted Not Reportable Sodium 138 Potassium 3.2 L Chloride 106 Carbon Dioxide 20.0 L Anion Gap 12 BUN 10 Creatinine 2.78 H Estim Creat Clear Calc 31.44 Est GFR (MDRD) Af Amer 31 L Est GFR (MDRD) Non-Af 26 L BUN/Creatinine Ratio 3.6 L Glucose 127 H Serum Osmolality Calcium 8.6 Total Bilirubin 0.50 AST 28 ALT 93 H Alkaline Phosphatase 72 Total Protein 7.4 Albumin 4.0 Globulin 3.4 Albumin/Globulin Ratio 1.2 Salicylates 6.0 Acetaminophen < 10.0 L Ethyl Alcohol 11.0 Acetone Level 02/13/18 00:35 WBC RBC Hgb Hct MCV MCH MCHC RDW RDW Differential Plt Count MPV Immature Gran % (Auto) Neut % (Auto) Lymph % (Auto) [place] % (Auto) Eos % (Auto) Baso % (Auto) Absolute Neuts (auto) Absolute Lymphs (auto) Total Counted Sodium Potassium Chloride Carbon Dioxide Anion Gap BUN Creatinine Estim Creat Clear Calc Est GFR (MDRD) Af Amer Est GFR (MDRD) Non-Af BUN/Creatinine Ratio Glucose Serum Osmolality 318 H Calcium Total Bilirubin AST ALT Alkaline Phosphatase Total Protein Albumin Globulin Albumin/Globulin Ratio Salicylates Acetaminophen Ethyl Alcohol Acetone Level NEGATIVE Assessment/Plan All Active Problems Alcohol withdrawal (Acute) 52 y/o male admitted with a complaint of alcohol withdrawal and suicide attempt 1. Alcohol withdrawal * alcohol level was WNL though he says he drinks ~ 1 gallon of vodka and bourbon daily * CIWA score- * admit to ICU * thiamine, multivite and folic acid * IVF NS * alcohol withdrawal protocol with librium * monitor CIWA score * 2. Polysubstance overdose * suicidal attempt by ingestion of ~ 16 different pills which contained Nabumetone, acyclovir, valacyclovir, Tylenol, Tylenol/dextromethorphan/guaifenesin/phenylephrine, Keppra, Norvasc, bupropion XL (both 300 and 150 mg doses), Protonix, Abilify, Nexium, folic acid, Celexa, bupropion SR, metoprolol tartrate, and Amitiza. * Poison control called by ED. Recommend that patient should be monitored closely for the next 24 hours. * Admit to ICU and monitor closely * 3. isopropyl alcohol ingestion * Run out of alcohol and so decided to drink rubbing alcohol * measured osmolality is 318; calculated serum osmolality is 318, giving an osmolar gap of ~ 28 * this is likely due to isopropyl alcohol ingestion * bicarb is 20, with anion gap of 12 * serum ketones is negative * does complain of abdominal pain * acetone level was negative * hydrate with IVF * IV pantoprazole 40mg daily * IV zofran prn * no indication for fompizole due to rapid metabolism of isopropyl alcohll 4. OSMANI * Cr is 2.78; Cr ~ 2 days ago was 0.76 * likely due to isopropyl alcohol ingestion * administer IVF NS and monitor urine output * trend BMP * 5. Suicidal ideation with polysubstance overdose * as under 2. * for crises evaluation when medically stable * 6. Hypokalemia: Potassium is 3.2. Replace and monitor. 7. Hypertension: On amlodipine and atenolol. DVT prophylaxis: Heparin GI prophylaxis: PPI Total critical care time: 45 mins Code Visit Inpatient E&M: 13732 Init Hosp L3 Procedures: 36989 Critial Care 1st Hr
--- NOTE | 2018-02-13 03:32 | NURSING ---
PATIENT WAS SLEEPING SOUNDLY FOR 15 MINUTES, NO TREMORS NOTED WHILE HE WAS SLEEPING. HE WAS THEN ON THE PHONE WITH HIS GIRLFRIEND HAM AND HE HANDED THE PHONE TO ME AND SHE ASKED ME WHEN HE WAS GOING TO THE ROOM AND I SAID THE HOSPITALIST WAS COMING TO SEE HIM. WHEN THE HOSPITALIST CAME IN TO SEE HIM, HE STARTED TREMORING AGAIN AND I TRIED TO REMIND HIM TO TRY AND CALM DOWN SO SHE COULD TALK TO HIM. ONCE I REMINDED HIM HE WAS ABLE TO CALM HIMSELF DOWN.
--- NOTE | 2018-02-13 03:52 | ED.RN ---
PATIENT IS SLEEPING AGAIN. HE LOOKS TO BE RESTING COMFORTABLY AND NO TREMORS WERE NOTED. WE ARE WAITING FOR THE CALL THAT HE CAN BE TRANSFERRED TO ICU.
[2018-02-13] MEDS: 0.9% Normal Saline 1,000 ML 200 ML IV (04:59)
[2018-02-13] MEDS: chlordiazePOXIDE 25 MG Capsule 50 MG PO (04:59)
[2018-02-13 05:34] LABS: Amphetamine Urine VISTA NEGATIVE (<1000 ng/mL); Barbiturate Urine VISTA NEGATIVE (< 200 ng/mL); Benzodiazepine Urine VISTA POSITIVE (< 200 ng/mL); Cocaine Urine VISTA NEGATIVE (< 300 ng/mL); Ecstacy Urine VISTA POSITIVE (< 500 ng/mL); Methadone Urine VISTA NEGATIVE (< 300 ng/mL); PCP Urine VISTA NEGATIVE (< 25 ng/mL); THC Urine VISTA NEGATIVE (< 50 ng/mL); Vista UDS pH Range 5
[2018-02-13 05:35] LABS: Absolute Lymphocyte Count 1.65 X10^3/ul (0.83-4.51); Absolute Neutrophil Count 6.5 X10^3/uL (2.0-7.7); Basophil# 0.02 X10^3/uL; Basophil% 0.2 % (0-1); Eosinophil# 0.03 X10^3/uL; Eosinophils% 0.3 % (0-5); Hemoglobin 13.3 g/dl (13.0-16.5); Lymphocyte # 1.65 X10^3/ul (4.0); Lymphocyte % 18.9 % (19-41); Mean Corp Hgb Conc 34.1 g/gl (32-36); Mean Corpuscular Hgb 32.2 pg (27.0-32.0); Mean Corpuscular Volume 94.4 fL (80-94); Mean Platelet Vol. 9.1 fl (6.2-12.0); Monocyte# 0.58 X10^3/uL; Monocyte% 6.6 % (0-10); Neutrophil # 6.46 X10^3/uL (2.7-7.7); Platelet Count 159 K/mm3 (150-450); RBC Distribution Width CV 13.9 % (11.6-14.6); Red Blood Count 4.13 M/mm3 (4.6-6.2); White Blood Count 8.7 K/mm3 (4.4-11.0)
[2018-02-13 05:36] LABS: POSITIVE COUNT NO; POSITIVE DIFFERENTIAL NO; POSITIVE MORPHOLOGY NO
[2018-02-13 05:43] LABS: Magnesium 1.6 mg/dL (1.6-2.6)
[2018-02-13 06:09] LABS: ALB/GLOB Ratio 1.1 RATIO (0.9-2.4); AST(SGOT) 22 U/L (15-37); Alanine Aminotransfer ALT/SGPT 81 U/L (16-61); Albumin, Serum 3.5 g/dL (3.2-5.0); Alkaline Phosphatase 66 U/L (45-117); Anion Gap 10 (5-15); BUN 9 mg/dL (7-18); Calcium,Total 8.3 mg/dL (8.5-10.1); Chloride 108 mmol/L (98-107); Creatinine, Serum 2.96 mg/dL (0.70-1.30); EST Glomerular Filtration Rate 24 mL/min (>60); Est Glom Filt Rate - Afr Amer 29 mL/min (>60); Estimated Creatinine Clearance 28.56 ml/min; Globulin 3.2 g/dL (2.2-4.2); Glucose 113 mg/dL (74-106); Potassium 3.5 mmol/L (3.5-5.1); Protein, Total 6.7 g/dL (6.4-8.2); Sodium Level 140 mmol/L (136-145)
[2018-02-13] MEDS: Heparin Injection (Vial) 5,000 UNIT/ML VIAL 5000 UNIT SC ×3 (06:53→21:29)
[2018-02-13 07:08] LABS: Bacteria 0 SEEN /hpf (None Seen); Mucous, Urine 0 SEEN /hpf (<or=2+); Squamous Epithelial Cells - UA 0 SEEN /hpf (0-5); White Blood Cells 0 SEEN /hpf (0-5)
[2018-02-13 07:30] LABS: Color, Urine Yellow (Yellow); Glucose, Dipstick Normal (Normal); Ketone-Dipstick 50 mg/dl (Negative); Leukocyte Esterase-Dipstick Negative /ul (Negative); Nitrite-Dipstick Negative (Negative); Occult Blood-Urine 250 /ul (Negative); Protein-Dipstick 100 mg/dl (Negative); Urine Bilirubin Dipstick Negative (Negative); Urine Clarity Sl. Cloudy (Clear); Urine Urobilinogen Normal (Normal)
[2018-02-13 07:40] LABS: Red Blood Cells-Urine 25-50 SEEN /hpf (0-5)
--- NOTE | 2018-02-13 07:53 | CON.PCM_ITS ---
Problem List (1) Alcohol withdrawal Status: Acute Qualifiers: Complication of substance-induced condition: uncomplicated Qualified Code(s): F10.230 - Alcohol dependence with withdrawal, uncomplicated (2) DM type 2 (diabetes mellitus, type 2) Status: Chronic Qualifiers: Diabetes mellitus ferry terminal agent insulin use: without ferry terminal agent use Diabetes mellitus complication status: without complication Qualified Code(s): E11.9 - Type 2 diabetes mellitus without complications (3) Bipolar 1 disorder Status: Chronic (4) History of kidney stones Status: Chronic (5) Tobacco use Status: Chronic (6) Psychiatric pseudoseizure Status: Chronic (7) Homelessness Status: Chronic (8) Benign essential hypertension Status: Chronic Reason for Consult Date of Consultation: 02/13/18 Reason for Consultation: Acute renal failure/polypharmacy overdose History of Present Illness: The patient is a 52 year old M, with past medical history listed below, who presented to [facility] on 02/13/2018 following a suicide attempt after arguing with his girlfriend. Patient reportedly took a handful of pills approximately 20 minutes prior to presentation to the ER. Patient has been admitted multiple times in the recent past secondary to alcohol withdrawal and recently signed out AMA. Patient reportedly did admit to the ER that he was taking rubbing alcohol by mouth after he could not afford bourbon or vodka. Patient reportedly can drink up to a gallon of bourbon or vodka on a daily basis. In the emergency room, patient was noted to be tachycardic, hypokalemic and in acute renal failure at 2.78 (baseline less than 1). Patient's Tylenol was less than 10 and had an osmolar gap of 31. Patient was treated with normal saline, charcoal, Zofran and Ativan. Multiple medications were suggested to be taken including bupropion, Norvasc, Keppra, acyclovir, valacyclovir, nabumetone, Abilify, Protonix, Lopressor and others. Patient was admitted to the intensive care unit for close monitoring. Since being in the intensive care unit, patient has had no hemodynamic instability. Patient continues to have variable response to clinical staff including increased tremor, which is similar to previous admissions. Patient was placed on the Librium taper appears to be tolerating this well. Patient is not reporting any dysuria. Patient is not forthcoming about trying to hurt himself to me. Patient states things are bad, but not bad enough for me to take my life. Patient has no recollection of presenting to the ER. Patient is not able to provide a reliable review of systems at this time. Past Medical History Past Medical History (Chronic Problems): Chronic Problems DM type 2 (diabetes mellitus, type 2) (Chronic) Bipolar 1 disorder (Chronic) History of kidney stones (Chronic) Continuous chronic alcoholism (Chronic) up to 1 gallon vodka daily Tobacco use (Chronic) Psychiatric pseudoseizure (Chronic) Homelessness (Chronic) Benign essential hypertension (Chronic) Allergies amoxicillin [Amoxicillin] Allergy (Verified 02/10/18 19:29) Anaphylaxis Penicillins Allergy (Verified 02/10/18 19:29) Anaphylaxis Home Medications: Ambulatory Orders Medication Instructions Recorded Amlodipine [Norvasc] 10 mg PO DAILY 01/30/18 Atenolol [Tenormin (beta clem)] 25 mg PO BID 01/30/18 levETIRAcetam tablet [Keppra 500 mg PO BID 01/30/18 tablet] Folic Acid 1 mg PO DAILYCM #30 tablet 02/01/18 Quetiapine Fumarate [Seroquel] 100 mg PO QHS #30 tablet 02/01/18 Thiamine Hydrochloride [Vitamin B1] 100 mg PO DAILYCM #30 tablet 02/01/18 Surgical History: no surgical history Psychiatric History: Bipolar, Depression Lives: Alone Smoking Status: Current every day smoker Tobacco Use: Cigarettes Alcohol: Heavy Drugs: None - *Family History Maternal History Items: No pertinent history Paternal History Items: No pertinent history Sibling History Items: No pertinent history Review of Systems Unable to obtain accurate/complete ROS d/t: Variable history reported Subjective: Asked patient about alcohol cessation and patient's response was I probably have to try or it is going to kill me. Patient does admit that he is tried isopropyl alcohol in the past to get me over the hump until I can afford more alcohol. - Physical Exam General: Alert, Oriented x3, Cooperative, No apparent distress, Well developed, Well nourished, - HEENT: Atraumatic, PERRLA, EOMI, Normocephalic, - - No scleral icterus or injection noted. Oral: Moist Mucosa, No Gingival or Mucosal Lesions/ Ulcerations Neck: Supple, No JVD, No Nodes, Trachea Midline Lungs: Clear to auscultation, Normal air movement, No rhonchi, No wheeze, No rales Cardiovascular: Normal S1, Normal S2, No murmurs, No rub noted, No Gallop, Tachycardic Abdomen: Bowel Sounds Present, Soft, Non Tender, Non-Distended, Obese Extremities: No clubbing, No cyanosis, No edema, Capillary Refill Less than 3 Seconds Skin: No rashes, No breakdown Musculoskeletal: No Tenderness to Palpation of Joints or Extremities Lymphatic: No Cervical, Supraclavicular, or Inguinal Adenopathy Neurological: Cranial nerves II-XII grossly intact, Neuro grossly intact, Motor Exam 5/5 strength throughout Psych/Mental Status: Appropriate, Restless, - - Appears to have significant voluntary tremor when compared to video monitoring Vital Signs Temp Pulse Resp BP Pulse Ox 37.2 C 97 10 L 134/92 H 93 02/13/18 04:15 02/13/18 07:05 02/13/18 07:00 02/13/18 07:00 02/13/18 07:00 Oxygen Flow Rate (L/min) 2 Oxygen Delivery Method Nasal Cannula Weight: 92.6 kg Body Mass Index (BMI) 30.2 Finger Stick Blood Glucose 98 Intake and Output for Last 24 Hours 02/11/18 02/12/18 02/13/18 23:59 23:59 23:59 Intake Total 319 / 319 Output Total 750 / 750 Balance -431 / -431 Laboratory Tests Past 24 Hrs 02/13/18 02/13/18 02/13/18 00:35 00:35 00:35 WBC 9.3 RBC 4.40 L Hgb 14.5 Hct 41.2 MCV 93.6 MCH 33.0 H MCHC 35.2 RDW 13.9 RDW Differential 46.2 H Plt Count 184 MPV 9.2 Immature Gran % (Auto) 0.200 Neut % (Auto) 77.9 H Lymph % (Auto) 15.0 L Gage % (Auto) 6.6 Eos % (Auto) 0.1 Baso % (Auto) 0.2 Absolute Neuts (auto) 7.2 Absolute Lymphs (auto) 1.39 Total Counted Not Reportable Sodium 138 Potassium 3.2 L Chloride 106 Carbon Dioxide 20.0 L Anion Gap 12 BUN 10 Creatinine 2.78 H Estim Creat Clear Calc 31.44 Est GFR (MDRD) Af Amer 31 L Est GFR (MDRD) Non-Af 26 L BUN/Creatinine Ratio 3.6 L Glucose 127 H Serum Osmolality Calcium 8.6 Magnesium Total Bilirubin 0.50 AST 28 ALT 93 H Alkaline Phosphatase 72 Total Protein 7.4 Albumin 4.0 Globulin 3.4 Albumin/Globulin Ratio 1.2 Urine Color Urine Clarity Urine pH Ur Specific [place] Urine Protein Urine Glucose (UA) Urine Ketones Urine Occult Blood Urine Nitrite Urine Bilirubin Urine Urobilinogen Ur Leukocyte Esterase Urine RBC Urine WBC Ur Squamous Epith Cells Urine Bacteria Urine Mucus Urine Creatinine Salicylates 6.0 Urine Opiates Screen Urine Methadone Screen Acetaminophen < 10.0 L Ur Barbiturates Screen Ur Phencyclidine Scrn Ur Amphetamines Screen U Methamphetamin-MDMA U Benzodiazepines Scrn Urine Cocaine Screen U Cannabinoids Screen Ur Drug Screen Comment Ethyl Alcohol 11.0 Acetone Level Urine Arsenic Urine Lead Urine Lead 24 Hour U Lead/Creatinine Ratio Urine Mercury Ur Mercury/Creat Ratio 02/13/18 02/13/18 02/13/18 00:35 04:55 04:55 WBC RBC Hgb Hct MCV MCH MCHC RDW RDW Differential Plt Count MPV Immature Gran % (Auto) Neut % (Auto) Lymph % (Auto) Gage % (Auto) Eos % (Auto) Baso % (Auto) Absolute Neuts (auto) Absolute Lymphs (auto) Total Counted Sodium Potassium Chloride Carbon Dioxide Anion Gap BUN Creatinine Estim Creat Clear Calc Est GFR (MDRD) Af Amer Est GFR (MDRD) Non-Af BUN/Creatinine Ratio Glucose Serum Osmolality 318 H Calcium Magnesium Total Bilirubin AST ALT Alkaline Phosphatase Total Protein Albumin Globulin Albumin/Globulin Ratio Urine Color Yellow Urine Clarity Sl. Cloudy Urine pH 6.0 Ur Specific [place] 1.010 Urine Protein 100 H Urine Glucose (UA) Normal Urine Ketones 50 H Urine Occult Blood 250 H Urine Nitrite Negative Urine Bilirubin Negative Urine Urobilinogen Normal Ur Leukocyte Esterase Negative Urine RBC 25-50 SEEN Urine WBC 0 SEEN Ur Squamous Epith Cells 0 SEEN Urine Bacteria 0 SEEN Urine Mucus 0 SEEN Urine Creatinine Salicylates Urine Opiates Screen NEGATIVE Urine Methadone Screen NEGATIVE Acetaminophen Ur Barbiturates Screen NEGATIVE Ur Phencyclidine Scrn NEGATIVE Ur Amphetamines Screen NEGATIVE U Methamphetamin-MDMA POSITIVE H U Benzodiazepines Scrn POSITIVE H Urine Cocaine Screen NEGATIVE U Cannabinoids Screen NEGATIVE Ur Drug Screen Comment Ethyl Alcohol Acetone Level NEGATIVE Urine Arsenic Urine Lead Urine Lead 24 Hour U Lead/Creatinine Ratio Urine Mercury Ur Mercury/Creat Ratio 02/13/18 02/13/18 02/13/18 05:10 05:10 05:10 WBC 8.7 RBC 4.13 L Hgb 13.3 Hct 39.0 L MCV 94.4 H MCH 32.2 H MCHC 34.1 RDW 13.9 RDW Differential 46.0 H Plt Count 159 MPV 9.1 Immature Gran % (Auto) 0.000 Neut % (Auto) 74.0 H Lymph % (Auto) 18.9 L Gage % (Auto) 6.6 Eos % (Auto) 0.3 Baso % (Auto) 0.2 Absolute Neuts (auto) 6.5 Absolute Lymphs (auto) 1.65 Total Counted Not Reportable Sodium 140 Potassium 3.5 Chloride 108 H Carbon Dioxide 22.0 Anion Gap 10 BUN 9 Creatinine 2.96 H Estim Creat Clear Calc 28.56 Est GFR (MDRD) Af Amer 29 L Est GFR (MDRD) Non-Af 24 L BUN/Creatinine Ratio 3.0 L Glucose 113 H Serum Osmolality Calcium 8.3 L Magnesium 1.6 Total Bilirubin 0.60 AST 22 ALT 81 H Alkaline Phosphatase 66 Total Protein 6.7 Albumin 3.5 Globulin 3.2 Albumin/Globulin Ratio 1.1 Urine Color Urine Clarity Urine pH Ur Specific [place] Urine Protein Urine Glucose (UA) Urine Ketones Urine Occult Blood Urine Nitrite Urine Bilirubin Urine Urobilinogen Ur Leukocyte Esterase Urine RBC Urine WBC Ur Squamous Epith Cells Urine Bacteria Urine Mucus Urine Creatinine Salicylates Urine Opiates Screen Urine Methadone Screen Acetaminophen Ur Barbiturates Screen Ur Phencyclidine Scrn Ur Amphetamines Screen U Methamphetamin-MDMA U Benzodiazepines Scrn Urine Cocaine Screen U Cannabinoids Screen Ur Drug Screen Comment Ethyl Alcohol Acetone Level Urine Arsenic Urine Lead Urine Lead 24 Hour U Lead/Creatinine Ratio Urine Mercury Ur Mercury/Creat Ratio 02/13/18 02/13/18 07:00 07:00 WBC RBC Hgb Hct MCV MCH MCHC RDW RDW Differential Plt Count MPV Immature Gran % (Auto) Neut % (Auto) Lymph % (Auto) Gage % (Auto) Eos % (Auto) Baso % (Auto) Absolute Neuts (auto) Absolute Lymphs (auto) Total Counted Sodium Potassium Chloride Carbon Dioxide Anion Gap BUN Creatinine Estim Creat Clear Calc Est GFR (MDRD) Af Amer Est GFR (MDRD) Non-Af BUN/Creatinine Ratio Glucose Serum Osmolality Calcium Magnesium Total Bilirubin AST ALT Alkaline Phosphatase Total Protein Albumin Globulin Albumin/Globulin Ratio Urine Color Urine Clarity Urine pH Ur Specific [place] Urine Protein Urine Glucose (UA) Urine Ketones Urine Occult Blood Urine Nitrite Urine Bilirubin Urine Urobilinogen Ur Leukocyte Esterase Urine RBC Urine WBC Ur Squamous Epith Cells Urine Bacteria Urine Mucus Urine Creatinine Pending Salicylates Pending Urine Opiates Screen Urine Methadone Screen Acetaminophen Pending Ur Barbiturates Screen Ur Phencyclidine Scrn Ur Amphetamines Screen U Methamphetamin-MDMA U Benzodiazepines Scrn Urine Cocaine Screen U Cannabinoids Screen Ur Drug Screen Comment Ethyl Alcohol Acetone Level Urine Arsenic Pending Urine Lead Pending Urine Lead 24 Hour Pending U Lead/Creatinine Ratio Pending Urine Mercury Pending Ur Mercury/Creat Ratio Pending Assessment/Plan RECOMMENDATIONS: 1. Continue to monitor clinically 2. Obtain UA, urine heavy metals and renal ultrasound 3. Crisis evaluation once medically stable 4. Confirm resolution of salicylate and Tylenol levels 5. CIWA protocol with Librium taper IMPRESSIONS: 1. Polysubstance overdose secondary to reported suicidal ideation Patient appears to have reacted spontaneously after fighting with his girlfriend. Patient is currently hemodynamically stable. Unclear of the amount of medications taken. We will continue to monitor clinically for resolution. Patient will need a crisis evaluation prior to discharge 2. Acute kidney injury secondary to isopropyl alcohol ingestion She was significant elevation of creatinine compared to previous. Unclear if this is related to dehydration versus volatile alcohols. Patient does not have an anion gap indicating ethylene glycol ingestion. Patient does have a history of renal stones. Will obtain an ultrasound of the kidneys. Continue with aggressive hydration. 3. Alcohol withdrawal Patient has been admitted multiple times in the past. Patient tends to report a desire for cessation of alcohol, but then also admits that he tends to run out of money for alcohol and signs out AMA once patient achieves normalization of alcohol level. Patient is currently on a Librium taper with CIWA protocol. Patient has had behavioral issues in the past. 4. Poor social support/hypokalemia/hypertension/history of malingering/type 2 diabetes mellitus/bipolar disorder Complicates care, management, recovery and prognosis. Supplementation of electrolytes as indicated. Unclear if history is accurate and inclusive. Tried to stress to the patient that honesty is necessary for evaluation of multiple medical problems. Code Visit Inpatient E&M: 48297 Init Hosp L3
[2018-02-13 07:55] LABS: Acetaminophen (Tylenol) Level < 2.0 ug/mL (10.0-30.0); Salicylate 4.9 mg/dL (2.8-20.0)
[2018-02-13] MEDS: Thiamine Hydrochloride 100 MG Tablet PO (08:21)
[2018-02-13] MEDS: Multivitamins,Therapeutic Tablet 1 TABLET PO (08:21)
[2018-02-13] MEDS: Folic Acid 1 MG Tablet PO (08:21)
--- NOTE | 2018-02-13 09:04 | PCM.PN.HOSP ---
Patient Problems: Active and Suspected Problems OSMANI (acute kidney injury) (Acute) Suicide attempt (Acute) Isopropyl alcohol poisoning (Acute) Alcohol withdrawal (Acute) Subjective: Patient endorses the consumption of numerous medications in attempt to harm himself. Per nursing: when no one is in the room, he is fine (camera in room), however, when someone walks in the room, he starts shaking. Vitals/I&O's: Vital Signs Temp Pulse Resp BP Pulse Ox 37.3 C 91 25 H 129/86 H 97 02/13/18 08:00 02/13/18 08:00 02/13/18 08:00 02/13/18 08:00 02/13/18 08:00 Oxygen Flow Rate (L/min) 2 Oxygen Delivery Method Room Air Weight: 92.6 kg Body Mass Index (BMI) 30.2 Finger Stick Blood Glucose 98 Intake and Output for Last 24 Hours 02/11/18 02/12/18 02/13/18 23:59 23:59 23:59 Intake Total 319 / 319 Output Total 750 / 750 Balance -431 / -431 General: Alert, Cooperative, No apparent distress, - - sleeping easily awoke, then started shaking--head and arms. HEENT: Atraumatic, EOMI, Normocephalic Oral: No Gingival or Mucosal Lesions/ Ulcerations, Dry Mucosa Neck: No Nodes, Thyroid Normal Size and Texture Lungs: Clear to auscultation, Normal air movement, No rhonchi, No wheeze Cardiovascular: Regular rate, Regular Rhythm, Normal S1, Normal S2, No murmurs Abdomen: Bowel Sounds Present, Soft, Non Tender, Non-Distended, No Hepato-splenomegaly Extremities: No edema, No Calf Tenderness Skin: No rashes, No breakdown Musculoskeletal: No Tenderness to Palpation of Joints or Extremities, No Muscle Wasting Psych/Mental Status: Normal Affect, Appropriate Laboratory Results 02/13/18 00:35: WBC 9.3, RBC 4.40 L, Hgb 14.5, Hct 41.2, MCV 93.6, MCH 33.0 H, MCHC 35.2, RDW 13.9, RDW Differential 46.2 H, Plt Count 184, MPV 9.2, Immature Gran % (Auto) 0.200, Neut % (Auto) 77.9 H, Lymph % (Auto) 15.0 L, Jack % (Auto) 6.6, Eos % (Auto) 0.1, Baso % (Auto) 0.2, Absolute Neuts (auto) 7.2, Absolute Lymphs (auto) 1.39, Total Counted Not Reportable 02/13/18 00:35: Sodium 138, Potassium 3.2 L, Chloride 106, Carbon Dioxide 20.0 L, Anion Gap 12, BUN 10, Creatinine 2.78 H, Estim Creat Clear Calc 31.44, Est GFR (MDRD) Af Amer 31 L, Est GFR (MDRD) Non-Af 26 L, BUN/Creatinine Ratio 3.6 L, Glucose 127 H, Calcium 8.6, Total Bilirubin 0.50, AST 28, ALT 93 H, Alkaline Phosphatase 72, Total Protein 7.4, Albumin 4.0, Globulin 3.4, Albumin/Globulin Ratio 1.2 02/13/18 00:35: Salicylates 6.0, Acetaminophen < 10.0 L, Ethyl Alcohol 11.0 02/13/18 00:35: Serum Osmolality 318 H, Acetone Level NEGATIVE 02/13/18 04:55: Urine Opiates Screen NEGATIVE, Urine Methadone Screen NEGATIVE, Ur Barbiturates Screen NEGATIVE, Ur Phencyclidine Scrn NEGATIVE, Ur Amphetamines Screen NEGATIVE, U Methamphetamin-MDMA POSITIVE H, U Benzodiazepines Scrn POSITIVE H, Urine Cocaine Screen NEGATIVE, U Cannabinoids Screen NEGATIVE, Ur Drug Screen Comment 02/13/18 04:55: Urine Color Yellow, Urine Clarity Sl. Cloudy, Urine pH 6.0, Ur Specific [place] 1.010, Urine Protein 100 H, Urine Glucose (UA) Normal, Urine Ketones 50 H, Urine Occult Blood 250 H, Urine Nitrite Negative, Urine Bilirubin Negative, Urine Urobilinogen Normal, Ur Leukocyte Esterase Negative, Urine RBC 25-50 SEEN, Urine WBC 0 SEEN, Ur Squamous Epith Cells 0 SEEN, Urine Bacteria 0 SEEN, Urine Mucus 0 SEEN 02/13/18 05:10: Magnesium 1.6 02/13/18 05:10: WBC 8.7, RBC 4.13 L, Hgb 13.3, Hct 39.0 L, MCV 94.4 H, MCH 32.2 H, MCHC 34.1, RDW 13.9, RDW Differential 46.0 H, Plt Count 159, MPV 9.1, Immature Gran % (Auto) 0.000, Neut % (Auto) 74.0 H, Lymph % (Auto) 18.9 L, Jack % (Auto) 6.6, Eos % (Auto) 0.3, Baso % (Auto) 0.2, Absolute Neuts (auto) 6.5, Absolute Lymphs (auto) 1.65, Total Counted Not Reportable 02/13/18 05:10: Sodium 140, Potassium 3.5, Chloride 108 H, Carbon Dioxide 22.0, Anion Gap 10, BUN 9, Creatinine 2.96 H, Estim Creat Clear Calc 28.56, Est GFR (MDRD) Af Amer 29 L, Est GFR (MDRD) Non-Af 24 L, BUN/Creatinine Ratio 3.0 L, Glucose 113 H, Calcium 8.3 L, Total Bilirubin 0.60, AST 22, ALT 81 H, Alkaline Phosphatase 66, Total Protein 6.7, Albumin 3.5, Globulin 3.2, Albumin/Globulin Ratio 1.1 02/13/18 07:00: Salicylates 4.9, Acetaminophen < 2.0 L 02/13/18 07:00: Urine Creatinine Pending, Urine Arsenic Pending, Urine Lead Pending, Urine Lead 24 Hour Pending, U Lead/Creatinine Ratio Pending, Urine Mercury Pending, Ur Mercury/Creat Ratio Pending Current Medications Amlodipine Besylate (Norvasc) 10 mg PO DAILY [facility] Atenolol (Tenormin (Beta Mariela)) 25 mg PO BID [facility] Chlordiazepoxide (Librium) 50 mg PO Q6H [facility]; Taper Stop: 02/16/18 06:14 Last Admin: 02/13/18 04:59 Dose: 50 mg Dicyclomine HCl (Bentyl) 20 mg PO Q6H PRN PRN PRN Reason: abdominal discomfort Folic Acid (Folic Acid) 1 mg PO DAILYCM [facility] Last Admin: 02/13/18 08:21 Dose: 1 mg Heparin Sodium (Porcine) (Heparin Na) 5,000 unit SC Q8 [facility] Last Admin: 02/13/18 06:53 Dose: 5,000 unit Hydroxyzine Pamoate (Vistaril Pamoate Capsule) 50 mg PO Q6H PRN PRN PRN Reason: Mild Anxiety (score 1/3) Sodium Chloride () 1,000 mls @ 200 mls/hr IV .Q5H [facility] Last Admin: 02/13/18 04:59 Dose: 200 mls/hr Sodium Chloride () 250 mls @ 15 mls/hr IV .[id number] PRN PRN Reason: SALINE FLUSH Levetiracetam (Keppra Tablet) 500 mg PO BID [facility] Lorazepam (Ativan) 2 mg PO Q2H PRN PRN; Protocol PRN Reason: CIWA score > 8 but <15 Lorazepam (Ativan) 2 mg PO UD PRN; Protocol PRN Reason: CIWA score >/=15. Lorazepam (Ativan) 2 mg IV Q2H PRN PRN; Protocol PRN Reason: CIWA score > 8 but <15 Lorazepam (Ativan) 2 mg IV UD PRN; Protocol PRN Reason: CIWA score >/=15. Magnesium Hydroxide (Milk Of Magnesia) 30 ml PO DAILY PRN PRN PRN Reason: Constipation Methocarbamol (Methocarbamol) 750 mg PO Q6H PRN PRN PRN Reason: Muscle Aches [facility] Admin: 02/13/18 08:21 Dose: 1 tablet Quetiapine Fumarate (Seroquel) 100 mg PO QHS [facility] Sodium Chloride () 5 - 15 ml IV UD PRN PRN Reason: SALINE FLUSH Thiamine HCl ([facility]itamin B1) [facility] Last Admin: 02/13/18 08:21 Dose: 100 mg Medical Necessity - Tobacco Use Smoking Status: Current every day smoker Tobacco Use: Cigarettes Assessment/Plan All Active Problems OSMANI (acute kidney injury) (Acute) Suicide attempt (Acute) Isopropyl alcohol poisoning (Acute) Alcohol withdrawal (Acute) 1. OSMANI: 2/2 isopropyl alcohol + dehydration IVF US ordered check additional urine studies (FENa, urine eosinophils) 2. Isopropyl alcohol ingestion IVF, supportive mgmt acetone level negative Osmolar gap 18 (slightly elevated [normal is less than or equal to 10]) supportive mgmt 3. Alcohol abuse was just hospitalized and left AMA for alcohol withdrawal on the I am not convinced he is going through acute alcohol withdrawal at this time. Therefore, will discontinue Librium taper. The patient will have PRN Ativan. Thiamine and folate 4. Polysubstance intake monitor 5. Suicide attempt needs sitter will need crisis evaluation when medically stable. 6. DVT proph: LMWH. Code Visit Procedures: Other Procedure - See Report - non billable rounding.
--- NOTE | 2018-02-13 09:08 | PN_ITS ---
Patient Problems: Active and Suspected Problems OSMANI (acute kidney injury) (Acute) Suicide attempt (Acute) Isopropyl alcohol poisoning (Acute) Alcohol withdrawal (Acute) Subjective: Patient endorses the consumption of numerous medications in attempt to harm himself. Per nursing: when no one is in the room, he is fine (camera in room), however, when someone walks in the room, he starts shaking. Vitals/I&O's: Vital Signs Temp Pulse Resp BP Pulse Ox 37.3 C 91 25 H 129/86 H 97 02/13/18 08:00 02/13/18 08:00 02/13/18 08:00 02/13/18 08:00 02/13/18 08:00 Oxygen Flow Rate (L/min) 2 Oxygen Delivery Method Room Air Weight: 92.6 kg Body Mass Index (BMI) 30.2 Finger Stick Blood Glucose 98 Intake and Output for Last 24 Hours 02/11/18 02/12/18 02/13/18 23:59 23:59 23:59 Intake Total 319 / 319 Output Total 750 / 750 Balance -431 / -431 General: Alert, Cooperative, No apparent distress, - - sleeping easily awoke, then started shaking--head and arms. HEENT: Atraumatic, EOMI, Normocephalic Oral: No Gingival or Mucosal Lesions/ Ulcerations, Dry Mucosa Neck: No Nodes, Thyroid Normal Size and Texture Lungs: Clear to auscultation, Normal air movement, No rhonchi, No wheeze Cardiovascular: Regular rate, Regular Rhythm, Normal S1, Normal S2, No murmurs Abdomen: Bowel Sounds Present, Soft, Non Tender, Non-Distended, No Hepato- splenomegaly Extremities: No edema, No Calf Tenderness Skin: No rashes, No breakdown Musculoskeletal: No Tenderness to Palpation of Joints or Extremities, No Muscle Wasting Psych/Mental Status: Normal Affect, Appropriate Laboratory Results 02/13/18 00:35: WBC 9.3, RBC 4.40 L, Hgb 14.5, Hct 41.2, MCV 93.6, MCH 33.0 H, MCHC 35.2, RDW 13.9, RDW Differential 46.2 H, Plt Count 184, MPV 9.2, Immature Gran % (Auto) 0.200, Neut % (Auto) 77.9 H, Lymph % (Auto) 15.0 L, [place] % (Auto) 6.6, Eos % (Auto) 0.1, Baso % (Auto) 0.2, Absolute Neuts (auto) 7.2, Absolute Lymphs (auto) 1.39, Total Counted Not Reportable 02/13/18 00:35: Sodium 138, Potassium 3.2 L, Chloride 106, Carbon Dioxide 20.0 L , Anion Gap 12, BUN 10, Creatinine 2.78 H, Estim Creat Clear Calc 31.44, Est GFR (MDRD) Af Amer 31 L, Est GFR (MDRD) Non-Af 26 L, BUN/Creatinine Ratio 3.6 L, Glucose 127 H, Calcium 8.6, Total Bilirubin 0.50, AST 28, ALT 93 H, Alkaline Phosphatase 72, Total Protein 7.4, Albumin 4.0, Globulin 3.4, Albumin/Globulin Ratio 1.2 02/13/18 00:35: Salicylates 6.0, Acetaminophen < 10.0 L, Ethyl Alcohol 11.0 02/13/18 00:35: Serum Osmolality 318 H, Acetone Level NEGATIVE 02/13/18 04:55: Urine Opiates Screen NEGATIVE, Urine Methadone Screen NEGATIVE, Ur Barbiturates Screen NEGATIVE, Ur Phencyclidine Scrn NEGATIVE, Ur Amphetamines Screen NEGATIVE, U Methamphetamin-MDMA POSITIVE H, U Benzodiazepines Scrn POSITIVE H, Urine Cocaine Screen NEGATIVE, U Cannabinoids Screen NEGATIVE, Ur Drug Screen Comment 02/13/18 04:55: Urine Color Yellow, Urine Clarity Sl. Cloudy, Urine pH 6.0, Ur Specific [place] 1.010, Urine Protein 100 H, Urine Glucose (UA) Normal, Urine Ketones 50 H, Urine Occult Blood 250 H, Urine Nitrite Negative, Urine Bilirubin Negative, Urine Urobilinogen Normal, Ur Leukocyte Esterase Negative, Urine RBC 25-50 SEEN, Urine WBC 0 SEEN, Ur Squamous Epith Cells 0 SEEN, Urine Bacteria 0 SEEN, Urine Mucus 0 SEEN 02/13/18 05:10: Magnesium 1.6 02/13/18 05:10: WBC 8.7, RBC 4.13 L, Hgb 13.3, Hct 39.0 L, MCV 94.4 H, MCH 32.2 H, MCHC 34.1, RDW 13.9, RDW Differential 46.0 H, Plt Count 159, MPV 9.1, Immature Gran % (Auto) 0.000, Neut % (Auto) 74.0 H, Lymph % (Auto) 18.9 L, [place] % (Auto) 6.6, Eos % (Auto) 0.3, Baso % (Auto) 0.2, Absolute Neuts (auto) 6.5, Absolute Lymphs (auto) 1.65, Total Counted Not Reportable 02/13/18 05:10: Sodium 140, Potassium 3.5, Chloride 108 H, Carbon Dioxide 22.0, Anion Gap 10, BUN 9, Creatinine 2.96 H, Estim Creat Clear Calc 28.56, Est GFR (MDRD) Af Amer 29 L, Est GFR (MDRD) Non-Af 24 L, BUN/Creatinine Ratio 3.0 L, Glucose 113 H, Calcium 8.3 L, Total Bilirubin 0.60, AST 22, ALT 81 H, Alkaline Phosphatase 66, Total Protein 6.7, Albumin 3.5, Globulin 3.2, Albumin/Globulin Ratio 1.1 02/13/18 07:00: Salicylates 4.9, Acetaminophen < 2.0 L 02/13/18 07:00: Urine Creatinine Pending, Urine Arsenic Pending, Urine Lead Pending, Urine Lead 24 Hour Pending, U Lead/Creatinine Ratio Pending, Urine Mercury Pending, Ur Mercury/Creat Ratio Pending Current Medications Amlodipine Besylate (Norvasc) 10 mg PO DAILY [facility] Atenolol (Tenormin (Beta Mariela)) 25 mg PO BID [facility] Chlordiazepoxide (Librium) 50 mg PO Q6H [facility]; Taper Stop: 02/16/18 06:14 Last Admin: 02/13/18 04:59 Dose: 50 mg Dicyclomine HCl (Bentyl) 20 mg PO Q6H PRN PRN PRN Reason: abdominal discomfort Folic Acid (Folic Acid) 1 mg PO DAILYCM [facility] Last Admin: 02/13/18 08:21 Dose: 1 mg Heparin Sodium (Porcine) (Heparin Na) 5,000 unit SC Q8 [facility] Last Admin: 02/13/18 06:53 Dose: 5,000 unit Hydroxyzine Pamoate (Vistaril Pamoate Capsule) 50 mg PO Q6H PRN PRN PRN Reason: Mild Anxiety (score 1/3) Sodium Chloride () 1,000 mls @ 200 mls/hr IV .Q5H [facility] Last Admin: 02/13/18 04:59 Dose: 200 mls/hr Sodium Chloride () 250 mls @ 15 mls/hr IV .[id number] PRN PRN Reason: SALINE FLUSH Levetiracetam (Keppra Tablet) 500 mg PO BID [facility] Lorazepam (Ativan) 2 mg PO Q2H PRN PRN; Protocol PRN Reason: CIWA score > 8 but <15 Lorazepam (Ativan) 2 mg PO UD PRN; Protocol PRN Reason: CIWA score >/=15. Lorazepam (Ativan) 2 mg IV Q2H PRN PRN; Protocol PRN Reason: CIWA score > 8 but <15 Lorazepam (Ativan) 2 mg IV UD PRN; Protocol PRN Reason: CIWA score >/=15. Magnesium Hydroxide (Milk Of Magnesia) 30 ml PO DAILY PRN PRN PRN Reason: Constipation Methocarbamol (Methocarbamol) 750 mg PO Q6H PRN PRN PRN Reason: Muscle Aches [facility] Admin: 02/13/18 08:21 Dose: 1 tablet Quetiapine Fumarate (Seroquel) 100 mg PO QHS [facility] Sodium Chloride () 5 - 15 ml IV UD PRN PRN Reason: SALINE FLUSH Thi[facility]amin [facility]) [facility] Last Admin: 02/13/18 08:21 Dose: 100 mg Medical Necessity - Tobacco Use Smoking Status: Current every day smoker Tobacco Use: Cigarettes Assessment/Plan All Active Problems OSMANI (acute kidney injury) (Acute) Suicide attempt (Acute) Isopropyl alcohol poisoning (Acute) Alcohol withdrawal (Acute) 1. OSMANI: * 2/2 isopropyl alcohol + dehydration * IVF * US ordered * check additional urine studies (FENa, urine eosinophils) 2. Isopropyl alcohol ingestion * IVF, supportive mgmt * acetone level negative * Osmolar gap 18 (slightly elevated [normal is less than or equal to 10]) * supportive mgmt 3. Alcohol abuse * was just hospitalized and left AMA for alcohol withdrawal on the * I am not convinced he is going through acute alcohol withdrawal at this time. Therefore, will discontinue Librium taper. The patient will have PRN Ativan. * Thiamine and folate 4. Polysubstance intake * monitor 5. Suicide attempt * needs sitter * will need crisis evaluation when medically stable. 6. DVT proph: LMWH. Code Visit Procedures: Other Procedure - See Report - non billable rounding.
--- NOTE | 2018-02-13 09:51 | CASEMGMT ---
SW participated in ICU rounds. Pt arrived this morning, SW will speak w/pt when appropriate. It is anticipated pt will need to be seen by crisis once medically stable to assess for the need for psychiatric hospitalization at discharge from this hospital. SW remains available for any social service needs. CRISTIAN Hernandez, BUDGET ANALYST
--- NOTE | 2018-02-13 09:54 | CASEMGMT ---
There are no copies of LW/POA forms in the chart. SW will ask pt about these documents when appropriate. CRISTIAN Hernandez, CODING EDUCATOR
[2018-02-13] MEDS: hydrOXYzine PAM 25 MG Capsule 50 MG PO (10:09)
[2018-02-13] MEDS: levETIRAcetam 500 MG Tablet PO ×2 (10:10→21:29)
[2018-02-13] MEDS: amLODIPine 10 MG Tablet PO (10:10)
[2018-02-13] MEDS: Atenolol 25 MG Tablet PO ×2 (10:10→21:29)
[2018-02-13] MEDS: LORazepam 1 MG Tablet 2 MG PO ×2 (10:39→13:24)
--- NOTE | 2018-02-13 11:07 | US_ITS ---
STUDY: RENAL ULTRASOUND - COMPLETE REASON FOR EXAM: Male, 52 years old. Acute renal failure TECHNIQUE: Ultrasound evaluation of the kidneys was performed with real-time and static quiroz-scale imaging. COMPARISON: None. FINDINGS: RIGHT KIDNEY: Normal location of the right kidney, which is normal in size. The right kidney measures 11.8 cm. There is a normal cortex of the right kidney. The renal cortex measures 11.5 cm. There is no right renal mass or cyst. There are no right renal calculi. There is no right hydronephrosis. DISTAL RIGHT URETER: There is non-visualization of the distal right ureter. There is no demonstrated right ureterovesical junction calculus. There is no demonstrated right ureteral jet. LEFT KIDNEY: Normal location of the left kidney, which is normal in size. The left kidney measures 12.8 cm. There is a normal cortex of the left kidney. The renal cortex measures 2. cm. There is no left renal mass or cyst. There are no left renal calculi. There is no left hydronephrosis. DISTAL LEFT URETER: There is non-visualization of the distal left ureter. There is no demonstrated left ureterovesical junction calculus. There is no demonstrated left ureteral jet. BLADDER: The distended urinary bladder has a volume of 180 ml. There is a normal wall thickness of the distended urinary bladder. There is no demonstrated mass within the urinary bladder. There are no demonstrated bladder calculi. US/Kidney and Bladder IMPRESSION: Normal ultrasound of the kidneys and urinary bladder. Electronically Signed: Vick Aviles DO at 18:27 EST Tel , Service support ,
[2018-02-13] MEDS: Lactated Ringers 1,000 ML 200 ML IV ×3 (13:15→20:11)
[2018-02-13 13:58] LABS: Urine Sodium 47 mmol/L (Not Establ.)
[2018-02-13] MEDS: 0.9% NaCl Peripheral Flush Adult/Peds IV ×3 (14:23→21:20)
[2018-02-13] MEDS: LORazepam 2 MG/ML Syringe IV ×3 (15:09→21:20)
--- NOTE | 2018-02-13 19:15 | NURSING ---
Specimen cup full of pills brought up from ICU. Per pt, they are not all his pills and he doesn't even know what they all are. Patient requested meds be disposed of. Pills wasted in [facility], witnessed by Krista Garcia RN.
[2018-02-13] MEDS: QUEtiapine 100 MG Tablet PO (21:29)
[2018-02-14] VITALS (16 sets, daily range): BP systolic 126–159; BP diastolic 71–91; PULSE 68–89; RESP 16–24; TEMP 36.5–36.7; O2SAT 92–96
[2018-02-14] MEDS: Lactated Ringers 1,000 ML 200 ML IV ×2 (01:06→05:45)
[2018-02-14] MEDS: LORazepam 1 MG Tablet 2 MG PO ×2 (01:28→07:51)
[2018-02-14] MEDS: hydrOXYzine PAM 25 MG Capsule 50 MG PO ×2 (02:28→21:58)
[2018-02-14] MEDS: Heparin Injection (Vial) 5,000 UNIT/ML VIAL 5000 UNIT SC ×3 (05:45→22:08)
[2018-02-14 06:14] LABS: Absolute Lymphocyte Count 1.38 X10^3/ul (0.83-4.51); Absolute Neutrophil Count 3.8 X10^3/uL (2.0-7.7); Basophil# 0.03 X10^3/uL; Basophil% 0.5 % (0-1); Eosinophil# 0.06 X10^3/uL; Eosinophils% 1.1 % (0-5); Hematocrit 34.7 % (40-54); Hemoglobin 11.7 g/dl (13.0-16.5); Lymphocyte # 1.38 X10^3/ul (4.0); Lymphocyte % 24.8 % (19-41); Mean Corp Hgb Conc 33.7 g/gl (32-36); Mean Corpuscular Hgb 32.7 pg (27.0-32.0); Mean Corpuscular Volume 96.9 fL (80-94); Mean Platelet Vol. 9.6 fl (6.2-12.0); Monocyte# 0.33 X10^3/uL; Monocyte% 5.9 % (0-10); Neutrophil # 3.76 X10^3/uL (2.7-7.7); Neutrophil % 67.7 % (47-70); Platelet Count 126 K/mm3 (150-450); RBC Distribution Width CV 14.1 % (11.6-14.6); RBC Distribution Width SD 48.2 fl (35.1-43.9); Red Blood Count 3.58 M/mm3 (4.6-6.2); White Blood Count 5.6 K/mm3 (4.4-11.0)
[2018-02-14 06:15] LABS: POSITIVE COUNT NO; POSITIVE DIFFERENTIAL NO; POSITIVE MORPHOLOGY NO
[2018-02-14 06:45] LABS: AST(SGOT) 18 U/L (15-37); Alanine Aminotransfer ALT/SGPT 51 U/L (16-61); Albumin, Serum 2.9 g/dL (3.2-5.0); Alkaline Phosphatase 52 U/L (45-117); Anion Gap 10 (5-15); BUN 12 mg/dL (7-18); Calcium,Total 8.1 mg/dL (8.5-10.1); Chloride 110 mmol/L (98-107); EST Glomerular Filtration Rate 24 mL/min (>60); Est Glom Filt Rate - Afr Amer 28 mL/min (>60); Estimated Creatinine Clearance 28.18 ml/min; Glucose 87 mg/dL (74-106); Potassium 3.7 mmol/L (3.5-5.1); Protein, Total 5.9 g/dL (6.4-8.2); Sodium Level 142 mmol/L (136-145)
--- NOTE | 2018-02-14 06:57 | PCM.PN.INT ---
Subjective: Patient transferred out of the intensive care unit yesterday. No acute issues were reported overnight. Sitter reports patient has been doing well with decreased tremulous. Patient has been taking medications on a regular basis. General: Alert, Oriented x3, Cooperative, No apparent distress, Well developed, Well nourished, - - Speaks in full sentences HEENT: Atraumatic, PERRLA, EOMI, Normocephalic, - - No scleral icterus or injection noted. Oral: Moist Mucosa, No Gingival or Mucosal Lesions/ Ulcerations Neck: Supple, No JVD, No Nodes, Trachea Midline Lungs: Clear to auscultation, Normal air movement, No rhonchi, No wheeze, No rales Cardiovascular: Regular rate, Regular Rhythm, Normal S1, Normal S2, No murmurs, No rub noted, No Gallop Abdomen: Bowel Sounds Present, Soft, Non Tender, Non-Distended Extremities: No clubbing, No cyanosis, No edema, Capillary Refill Less than 3 Seconds Skin: No rashes, No breakdown Musculoskeletal: No Tenderness to Palpation of Joints or Extremities Lymphatic: No Cervical, Supraclavicular, or Inguinal Adenopathy Neurological: Cranial nerves II-XII grossly intact, Neuro grossly intact, Motor Exam 5/5 strength throughout Psych/Mental Status: Alert and oriented to time, place, person, mood and affect Vital Signs Temp Pulse Resp BP Pulse Ox 36.7 C 76 20 H 130/79 H 96 02/14/18 05:43 02/14/18 05:43 02/14/18 05:43 02/14/18 05:43 02/14/18 05:43 Oxygen Flow Rate (L/min) 2 Oxygen Delivery Method Room Air Weight: 96.9 kg Body Mass Index (BMI) 30.2 Finger Stick Blood Glucose 98 Intake and Output for Last 24 Hours 02/12/18 02/13/18 02/14/18 23:59 23:59 23:59 Intake Total 2794 / 2794 2956 / 2956 Output Total 1400 / 1400 Balance 1394 / 1394 2956 / 2956 Labs (Last 48 Hours) 02/13/18 02/13/18 02/13/18 00:35 00:35 00:35 WBC 9.3 RBC 4.40 L Hgb 14.5 Hct 41.2 MCV 93.6 MCH 33.0 H MCHC 35.2 RDW 13.9 RDW Differential 46.2 H Plt Count 184 MPV 9.2 Immature Gran % (Auto) 0.200 Neut % (Auto) 77.9 H Lymph % (Auto) 15.0 L [place] % (Auto) 6.6 Eos % (Auto) 0.1 Baso % (Auto) 0.2 Absolute Neuts (auto) 7.2 Absolute Lymphs (auto) 1.39 Total Counted Not Reportable Eos Smear Total Cells Sodium 138 Potassium 3.2 L Chloride 106 Carbon Dioxide 20.0 L Anion Gap 12 BUN 10 Creatinine 2.78 H Estim Creat Clear Calc 31.44 Est GFR (MDRD) Af Amer 31 L Est GFR (MDRD) Non-Af 26 L BUN/Creatinine Ratio 3.6 L Glucose 127 H Serum Osmolality Calcium 8.6 Magnesium Total Bilirubin 0.50 AST 28 ALT 93 H Alkaline Phosphatase 72 Total Protein 7.4 Albumin 4.0 Globulin 3.4 Albumin/Globulin Ratio 1.2 Urine Color Urine Clarity Urine pH Ur Specific [place] Urine Protein Urine Glucose (UA) Urine Ketones Urine Occult Blood Urine Nitrite Urine Bilirubin Urine Urobilinogen Ur Leukocyte Esterase Urine RBC Urine WBC Ur Squamous Epith Cells Urine Bacteria Urine Mucus Ur Random Sodium Urine Creatinine Salicylates 6.0 Urine Opiates Screen Urine Methadone Screen Acetaminophen < 10.0 L Ur Barbiturates Screen Ur Phencyclidine Scrn Ur Amphetamines Screen U Methamphetamin-MDMA U Benzodiazepines Scrn Urine Cocaine Screen U Cannabinoids Screen Ur Drug Screen Comment Ethyl Alcohol 11.0 Acetone Level Urine Arsenic Urine Lead Urine Lead 24 Hour U Lead/Creatinine Ratio Urine Mercury Ur Mercury/Creat Ratio 02/13/18 02/13/18 02/13/18 00:35 04:55 04:55 WBC RBC Hgb Hct MCV MCH MCHC RDW RDW Differential Plt Count MPV Immature Gran % (Auto) Neut % (Auto) Lymph % (Auto) [place] % (Auto) Eos % (Auto) Baso % (Auto) Absolute Neuts (auto) Absolute Lymphs (auto) Total Counted Eos Smear Total Cells Sodium Potassium Chloride Carbon Dioxide Anion Gap BUN Creatinine Estim Creat Clear Calc Est GFR (MDRD) Af Amer Est GFR (MDRD) Non-Af BUN/Creatinine Ratio Glucose Serum Osmolality 318 H Calcium Magnesium Total Bilirubin AST ALT Alkaline Phosphatase Total Protein Albumin Globulin Albumin/Globulin Ratio Urine Color Yellow Urine Clarity Sl. Cloudy Urine pH 6.0 Ur Specific [place] 1.010 Urine Protein 100 H Urine Glucose (UA) Normal Urine Ketones 50 H Urine Occult Blood 250 H Urine Nitrite Negative Urine Bilirubin Negative Urine Urobilinogen Normal Ur Leukocyte Esterase Negative Urine RBC 25-50 SEEN Urine WBC 0 SEEN Ur Squamous Epith Cells 0 SEEN Urine Bacteria 0 SEEN Urine Mucus 0 SEEN Ur Random Sodium Urine Creatinine Salicylates Urine Opiates Screen NEGATIVE Urine Methadone Screen NEGATIVE Acetaminophen Ur Barbiturates Screen NEGATIVE Ur Phencyclidine Scrn NEGATIVE Ur Amphetamines Screen NEGATIVE U Methamphetamin-MDMA POSITIVE H U Benzodiazepines Scrn POSITIVE H Urine Cocaine Screen NEGATIVE U Cannabinoids Screen NEGATIVE Ur Drug Screen Comment Ethyl Alcohol Acetone Level NEGATIVE Urine Arsenic Urine Lead Urine Lead 24 Hour U Lead/Creatinine Ratio Urine Mercury Ur Mercury/Creat Ratio 02/13/18 02/13/18 02/13/18 05:10 05:10 05:10 WBC 8.7 RBC 4.13 L Hgb 13.3 Hct 39.0 L MCV 94.4 H MCH 32.2 H MCHC 34.1 RDW 13.9 RDW Differential 46.0 H Plt Count 159 MPV 9.1 Immature Gran % (Auto) 0.000 Neut % (Auto) 74.0 H Lymph % (Auto) 18.9 L [place] % (Auto) 6.6 Eos % (Auto) 0.3 Baso % (Auto) 0.2 Absolute Neuts (auto) 6.5 Absolute Lymphs (auto) 1.65 Total Counted Not Reportable Eos Smear Total Cells Sodium 140 Potassium 3.5 Chloride 108 H Carbon Dioxide 22.0 Anion Gap 10 BUN 9 Creatinine 2.96 H Estim Creat Clear Calc 28.56 Est GFR (MDRD) Af Amer 29 L Est GFR (MDRD) Non-Af 24 L BUN/Creatinine Ratio 3.0 L Glucose 113 H Serum Osmolality Calcium 8.3 L Magnesium 1.6 Total Bilirubin 0.60 AST 22 ALT 81 H Alkaline Phosphatase 66 Total Protein 6.7 Albumin 3.5 Globulin 3.2 Albumin/Globulin Ratio 1.1 Urine Color Urine Clarity Urine pH Ur Specific [place] Urine Protein Urine Glucose (UA) Urine Ketones Urine Occult Blood Urine Nitrite Urine Bilirubin Urine Urobilinogen Ur Leukocyte Esterase Urine RBC Urine WBC Ur Squamous Epith Cells Urine Bacteria Urine Mucus Ur Random Sodium Urine Creatinine Salicylates Urine Opiates Screen Urine Methadone Screen Acetaminophen Ur Barbiturates Screen Ur Phencyclidine Scrn Ur Amphetamines Screen U Methamphetamin-MDMA U Benzodiazepines Scrn Urine Cocaine Screen U Cannabinoids Screen Ur Drug Screen Comment Ethyl Alcohol Acetone Level Urine Arsenic Urine Lead Urine Lead 24 Hour U Lead/Creatinine Ratio Urine Mercury Ur Mercury/Creat Ratio 02/13/18 02/13/18 02/13/18 07:00 07:00 10:05 WBC RBC Hgb Hct MCV MCH MCHC RDW RDW Differential Plt Count MPV Immature Gran % (Auto) Neut % (Auto) Lymph % (Auto) [place] % (Auto) Eos % (Auto) Baso % (Auto) Absolute Neuts (auto) Absolute Lymphs (auto) Total Counted Eos Smear Total Cells Pending Sodium Potassium Chloride Carbon Dioxide Anion Gap BUN Creatinine Estim Creat Clear Calc Est GFR (MDRD) Af Amer Est GFR (MDRD) Non-Af BUN/Creatinine Ratio Glucose Serum Osmolality Calcium Magnesium Total Bilirubin AST ALT Alkaline Phosphatase Total Protein Albumin Globulin Albumin/Globulin Ratio Urine Color Urine Clarity Urine pH Ur Specific [place] Urine Protein Urine Glucose (UA) Urine Ketones Urine Occult Blood Urine Nitrite Urine Bilirubin Urine Urobilinogen Ur Leukocyte Esterase Urine RBC Urine WBC Ur Squamous Epith Cells Urine Bacteria Urine Mucus Ur Random Sodium Urine Creatinine Pending Salicylates 4.9 Urine Opiates Screen Urine Methadone Screen Acetaminophen < 2.0 L Ur Barbiturates Screen Ur Phencyclidine Scrn Ur Amphetamines Screen U Methamphetamin-MDMA U Benzodiazepines Scrn Urine Cocaine Screen U Cannabinoids Screen Ur Drug Screen Comment Ethyl Alcohol Acetone Level Urine Arsenic Pending Urine Lead Pending Urine Lead 24 Hour Pending U Lead/Creatinine Ratio Pending Urine Mercury Pending Ur Mercury/Creat Ratio Pending 02/13/18 02/13/18 02/14/18 10:05 10:05 05:25 WBC 5.6 RBC 3.58 L Hgb 11.7 L Hct 34.7 L MCV 96.9 H MCH 32.7 H MCHC 33.7 RDW 14.1 RDW Differential 48.2 H Plt Count 126 L MPV 9.6 Immature Gran % (Auto) 0.000 Neut % (Auto) 67.7 Lymph % (Auto) 24.8 [place] % (Auto) 5.9 Eos % (Auto) 1.1 Baso % (Auto) 0.5 Absolute Neuts (auto) 3.8 Absolute Lymphs (auto) 1.38 Total Counted Not Reportable Eos Smear Total Cells Sodium Potassium Chloride Carbon Dioxide Anion Gap BUN Creatinine Estim Creat Clear Calc Est GFR (MDRD) Af Amer Est GFR (MDRD) Non-Af BUN/Creatinine Ratio Glucose Serum Osmolality Calcium Magnesium Total Bilirubin AST ALT Alkaline Phosphatase Total Protein Albumin Globulin Albumin/Globulin Ratio Urine Color Urine Clarity Urine pH Ur Specific [place] Urine Protein Urine Glucose (UA) Urine Ketones Urine Occult Blood Urine Nitrite Urine Bilirubin Urine Urobilinogen Ur Leukocyte Esterase Urine RBC Urine WBC Ur Squamous Epith Cells Urine Bacteria Urine Mucus Ur Random Sodium 47 Urine Creatinine 54.60 Salicylates Urine Opiates Screen Urine Methadone Screen Acetaminophen Ur Barbiturates Screen Ur Phencyclidine Scrn Ur Amphetamines Screen U Methamphetamin-MDMA U Benzodiazepines Scrn Urine Cocaine Screen U Cannabinoids Screen Ur Drug Screen Comment Ethyl Alcohol Acetone Level Urine Arsenic Urine Lead Urine Lead 24 Hour U Lead/Creatinine Ratio Urine Mercury Ur Mercury/Creat Ratio 02/14/18 05:25 WBC RBC Hgb Hct MCV MCH MCHC RDW RDW Differential Plt Count MPV Immature Gran % (Auto) Neut % (Auto) Lymph % (Auto) [place] % (Auto) Eos % (Auto) Baso % (Auto) Absolute Neuts (auto) Absolute Lymphs (auto) Total Counted Eos Smear Total Cells Sodium 142 Potassium 3.7 Chloride 110 H Carbon Dioxide 22.0 Anion Gap 10 BUN 12 Creatinine 3.00 H Estim Creat Clear Calc 28.18 Est GFR (MDRD) Af Amer 28 L Est GFR (MDRD) Non-Af 24 L BUN/Creatinine Ratio 4.0 L Glucose 87 Serum Osmolality Calcium 8.1 L Magnesium Total Bilirubin 0.50 AST 18 ALT 51 Alkaline Phosphatase 52 Total Protein 5.9 L Albumin 2.9 L Globulin 3.0 Albumin/Globulin Ratio 1.0 Urine Color Urine Clarity Urine pH Ur Specific [place] Urine Protein Urine Glucose (UA) Urine Ketones Urine Occult Blood Urine Nitrite Urine Bilirubin Urine Urobilinogen Ur Leukocyte Esterase Urine RBC Urine WBC Ur Squamous Epith Cells Urine Bacteria Urine Mucus Ur Random Sodium Urine Creatinine Salicylates Urine Opiates Screen Urine Methadone Screen Acetaminophen Ur Barbiturates Screen Ur Phencyclidine Scrn Ur Amphetamines Screen U Methamphetamin-MDMA U Benzodiazepines Scrn Urine Cocaine Screen U Cannabinoids Screen Ur Drug Screen Comment Ethyl Alcohol Acetone Level Urine Arsenic Urine Lead Urine Lead 24 Hour U Lead/Creatinine Ratio Urine Mercury Ur Mercury/Creat Ratio Clinical Impression(s) from Imaging Studies Renal Ultrasound 02/13/18 11:07 IMPRESSION: Normal ultrasound of the kidneys and urinary bladder. Electronically Signed: Vick Aviles DO at 18:27 EST Tel , Service support , Medical Necessity - Tobacco Use Smoking Status: Current every day smoker Tobacco Use: Cigarettes Assessment/Plan All Active Problems Isopropyl alcohol poisoning (Acute) Suicide attempt (Acute) OSMANI (acute kidney injury) (Acute) Alcohol withdrawal (Acute) RECOMMENDATIONS: 1. Continue to monitor clinically 2. Consider nephrology consultation 3. Crisis evaluation once medically stable 4. [facility] protocol with Librium taper IMPRESSIONS: 1. Polysubstance overdose secondary to reported suicidal ideation Patient appears to have reacted spontaneously after fighting with his girlfriend. Patient is currently hemodynamically stable. Unclear of the amount of medications taken. We will continue to monitor clinically for resolution. Patient appears to have no other effects from medications taken. Patient will need a crisis evaluation prior to discharge 2. Acute kidney injury secondary to isopropyl alcohol ingestion Patient's creatinine has remained at approximately 3 despite fluid resuscitation. Renal ultrasound shows no obstructive uropathy from stones or otherwise. FENa is 1.8% consistent with intrinsic kidney injury, which may be secondary to isopropyl alcohol. Patient does not have any white blood cells in his urine, so urine eosinophils are unlikely. Patient does have elevated protein and blood noted. Patient may benefit from a renal consultation. 3. Alcohol withdrawal Patient has been admitted multiple times in the past. Patient tends to report a desire for cessation of alcohol, but then also admits that he tends to run out of money for alcohol and signs out AMA once patient achieves normalization of alcohol level. Consider Librium taper versus beer to avoid withdrawal. Patient is pre-contemplative to withdrawal at this time and is likely not necessary to go through medical stabilization without at least being contemplative for alcohol cessation. 4. Poor social support/hypokalemia/hypertension/history of malingering/type 2 diabetes mellitus/bipolar disorder Complicates care, management, recovery and prognosis. Supplementation of electrolytes as indicated. Unclear if history is accurate and inclusive. Tried to stress to the patient that honesty is necessary for evaluation of multiple medical problems. Code Visit Inpatient E&M: 25990 Subs Hosp L3
[2018-02-14] MEDS: Thiamine Hydrochloride 100 MG Tablet PO (07:50)
[2018-02-14] MEDS: Folic Acid 1 MG Tablet PO (07:50)
[2018-02-14] MEDS: Multivitamins,Therapeutic Tablet 1 TABLET PO (07:50)
[2018-02-14] MEDS: levETIRAcetam 500 MG Tablet PO ×2 (07:51→22:08)
[2018-02-14] MEDS: amLODIPine 10 MG Tablet PO (07:51)
[2018-02-14] MEDS: Atenolol 25 MG Tablet PO ×2 (07:51→22:09)
--- NOTE | 2018-02-14 09:14 | PCM.PROGNOTE ---
Subjective: 52-year-old male alcoholic admitted for acute kidney injury after drinking isopropyl alcohol in an attempt to kill himself. Recently admitted to the [facility] program for medical stabilization for EtOH withdrawal however he left AMA. Drug screen at admission was positive for methamphetamine and benzodiazepines. Fractional excretion of sodium is 1.82% which is not consistent with prerenal azotemia. All events of the past 24 hours of been reviewed. Afebrile, blood pressure is mildly increased. He is 92% saturated on a 2 L nasal cannula currently but was 96% on room air earlier today. Fluid balance on 02/13/2018 was +[phone] All lab was personally reviewed. White blood cell count is within normal limits. The hemoglobin is 11.7, down from 14.5 at admission and platelets are 126,000 today. Electrolytes are unremarkable. The BUN is 12 and the creatinine is 3.00 today, up from 2.78 yesterday a.m. LFTs are unremarkable. UA had 25-50 RBCs per high-power field. Anion gap is 10 today. Radiology: Renal ultrasound was normal. No complaints today. Denies suicidal ideation. He states he has to be out of his apt by 02/18 and he wonders if he could be discharged. - Physical Exam General: Alert, Oriented x3, Cooperative, No apparent distress HEENT: Atraumatic Oral: Moist Mucosa Neck: Supple Lungs: Clear to auscultation Cardiovascular: Regular rate, Regular Rhythm, Normal S1, Normal S2, No Gallop, - - Review of telemetry shows normal sinus rhythm and a lot of artifact. No ventricular tachycardia. Abdomen: Bowel Sounds Present, Soft, Non Tender, Non-Distended, Obese Extremities: No cyanosis, No edema Neurological: Cranial nerves II-XII grossly intact, Neuro grossly intact Psych/Mental Status: Normal Affect, Appropriate Vital Signs Temp Pulse Resp BP Pulse Ox 97.9 F 75 16 138/91 H 92 02/14/18 07:44 02/14/18 07:44 02/14/18 07:44 02/14/18 07:44 02/14/18 07:44 Oxygen Flow Rate (L/min) 2 Oxygen Delivery Method Nasal Cannula Weight: 213 lb 10.047 oz Body Mass Index (BMI) 30.2 Finger Stick Blood Glucose 98 Intake and Output for Last 24 Hours 02/12/18 02/13/18 02/14/18 23:59 23:59 23:59 Intake Total 2794 / 2794 2956 / 2956 Output Total 1400 / 1400 Balance 1394 / 1394 2956 / 2956 Laboratory Tests Past 24 Hrs 02/13/18 02/13/18 02/13/18 10:05 10:05 10:05 WBC RBC Hgb Hct MCV MCH MCHC RDW RDW Differential Plt Count MPV Immature Gran % (Auto) Neut % (Auto) Lymph % (Auto) [place] % (Auto) Eos % (Auto) Baso % (Auto) Absolute Neuts (auto) Absolute Lymphs (auto) Total Counted Eos Smear Total Cells Pending Sodium Potassium Chloride Carbon Dioxide Anion Gap BUN Creatinine Estim Creat Clear Calc Est GFR (MDRD) Af Amer Est GFR (MDRD) Non-Af BUN/Creatinine Ratio Glucose Calcium Total Bilirubin AST ALT Alkaline Phosphatase Total Protein Albumin Globulin Albumin/Globulin Ratio Ur Random Sodium 47 Urine Creatinine 54.60 02/14/18 02/14/18 05:25 05:25 WBC 5.6 RBC 3.58 L Hgb 11.7 L Hct 34.7 L MCV 96.9 H MCH 32.7 H MCHC 33.7 RDW 14.1 RDW Differential 48.2 H Plt Count 126 L MPV 9.6 Immature Gran % (Auto) 0.000 Neut % (Auto) 67.7 Lymph % (Auto) 24.8 Schoolcraft % (Auto) 5.9 Eos % (Auto) 1.1 Baso % (Auto) 0.5 Absolute Neuts (auto) 3.8 Absolute Lymphs (auto) 1.38 Total Counted Not Reportable Eos Smear Total Cells Sodium 142 Potassium 3.7 Chloride 110 H Carbon Dioxide 22.0 Anion Gap 10 BUN 12 Creatinine 3.00 H Estim Creat Clear Calc 28.18 Est GFR (MDRD) Af Amer 28 L Est GFR (MDRD) Non-Af 24 L BUN/Creatinine Ratio 4.0 L Glucose 87 Calcium 8.1 L Total Bilirubin 0.50 AST 18 ALT 51 Alkaline Phosphatase 52 Total Protein 5.9 L Albumin 2.9 L Globulin 3.0 Albumin/Globulin Ratio 1.0 Ur Random Sodium Urine Creatinine Medical Necessity - Tobacco Use Smoking Status: Current every day smoker Tobacco Use: Cigarettes Assessment/Plan All Active Problems Isopropyl alcohol poisoning (Acute) Suicide attempt (Acute) OSMANI (acute kidney injury) (Acute) Alcohol withdrawal (Acute) Impressions 1. Suicide attempt with ingestion of isopropyl alcohol. Acetone level was negative. He has been hydrated. He is now alert and oriented x3. 2. Acute kidney injury-etiology uncertain. Fractional excretion of sodium is 1.82% which is not consistent with prerenal azotemia. Renal ultrasound was negative. Urine drug screen is positive for methamphetamine and benzodiazepines. He denies the use of methamphetamine but also denies any recent [id number] decongestants. Creatinine is 3.0 today, up from 2.78 at admission. 3. Alcohol abuse-was just recently hospitalized for alcohol withdrawal but left AMA. 4. Polysubstance intake 5. Hypertension 6. Seizure disorder-on Keppra as an outpatient, also on Seroquel continue hydration but decrease the IV rate to 100 Recheck BMP in the a.m. When he is medically stable will consult crisis intervention He needs a 24-hour sitter until seen by crisis. Code Visit Inpatient E&M: 95226 Subs Hosp L2
[2018-02-14] MEDS: Lactated Ringers 1,000 ML 100 ML IV ×2 (11:11→22:09)
--- NOTE | 2018-02-14 18:57 | NURSING ---
POISON CONTROL CALLED STATES WILL CONTINUE TO FOLLOW PATIENT AND WILL F/U ON PT TOMORROW.
[2018-02-14] MEDS: LORazepam 2 MG/ML Syringe IV ×2 (21:56→23:31)
[2018-02-14] MEDS: QUEtiapine 100 MG Tablet PO (21:59)
[2018-02-15] VITALS (8 sets, daily range): BP systolic 130–139; BP diastolic 90–92; PULSE 75–79; RESP 16–18; TEMP 36.4–36.8; O2SAT 94–98
[2018-02-15] MEDS: LORazepam 2 MG/ML Syringe IV ×4 (04:03→18:54)
--- NOTE | 2018-02-15 04:50 | NURSING ---
Spoke with Madhav from Poison Control who was inquiring about pt's Creatinine level. Informed Poison control that Creatinine had gone up from 2.96 to 3.00 and that he should check back later in the day to see if creatinine level went down today. Poison control also inquiring whether or not K+ was replaced, was told that pt. was given 40 MEQ PO x1 to replace potassium.
[2018-02-15] MEDS: Heparin Injection (Vial) 5,000 UNIT/ML VIAL 5000 UNIT SC ×3 (06:34→21:20)
[2018-02-15 07:28] LABS: Anion Gap 9 (5-15); BUN 15 mg/dL (7-18); BUN/Creat Ratio 6.4 RATIO (10-20); Calcium,Total 8.4 mg/dL (8.5-10.1); Chloride 108 mmol/L (98-107); Creatinine, Serum 2.33 mg/dL (0.70-1.30); EST Glomerular Filtration Rate 32 mL/min (>60); Est Glom Filt Rate - Afr Amer 38 mL/min (>60); Estimated Creatinine Clearance 36.29 ml/min; Glucose 118 mg/dL (74-106); Magnesium 1.5 mg/dL (1.6-2.6); Phosphorus 3.7 mg/dL (2.5-4.9); Potassium 3.4 mmol/L (3.5-5.1); Sodium Level 139 mmol/L (136-145)
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
[2018-02-15] MEDS: Multivitamins,Therapeutic Tablet 1 TABLET PO (08:27)
[2018-02-15] MEDS: Thiamine Hydrochloride 100 MG Tablet PO (08:27)
[2018-02-15] MEDS: Folic Acid 1 MG Tablet PO (08:27)
[2018-02-15] MEDS: Methocarbamol 750 MG Tablet PO ×2 (08:41→18:58)
[2018-02-15] MEDS: amLODIPine 10 MG Tablet PO (08:45)
[2018-02-15] MEDS: Atenolol 25 MG Tablet PO ×2 (08:45→23:08)
[2018-02-15] MEDS: levETIRAcetam 500 MG Tablet PO ×2 (08:45→21:20)
[2018-02-15] MEDS: Dicyclomine 10 MG Capsule 20 MG PO ×2 (09:00→18:58)
--- NOTE | 2018-02-15 10:26 | PCM.PN.HOSP ---
Patient Problems: Active and Suspected Problems Isopropyl alcohol poisoning (Acute) Suicide attempt (Acute) OSMANI (acute kidney injury) (Acute) Alcohol withdrawal (Acute) Subjective: concerned about a court date he has this week and also, that he may be evicted this week, too. Vitals/I&O's: Vital Signs Temp Pulse Resp BP Pulse Ox 36.6 C 79 16 130/91 H 97 02/15/18 04:05 02/15/18 04:05 02/15/18 04:05 02/15/18 04:05 02/15/18 04:05 Oxygen Flow Rate (L/min) 2 Oxygen Delivery Method Room Air Weight: 96.9 kg Body Mass Index (BMI) 30.2 Finger Stick Blood Glucose 98 Intake and Output for Last 24 Hours 02/13/18 02/14/18 02/15/18 23:59 23:59 23:59 Intake Total 2794 / 2794 4413 / 4413 2296 / 2296 Output Total 1400 / 1400 Balance 1394 / 1394 4413 / 4413 2296 / 2296 General: Alert, Cooperative, No apparent distress HEENT: Atraumatic, Normocephalic Oral: Moist Mucosa, No Gingival or Mucosal Lesions/ Ulcerations Neck: No Nodes, Thyroid Normal Size and Texture Lungs: Clear to auscultation, Normal air movement, No rhonchi, No wheeze Cardiovascular: Regular rate, Regular Rhythm, Normal S1, Normal S2 Abdomen: Bowel Sounds Present, Soft, Non Tender, Non-Distended, No Hepato-splenomegaly Extremities: No edema, No Calf Tenderness Skin: No rashes, No breakdown Musculoskeletal: No Tenderness to Palpation of Joints or Extremities, No Muscle Wasting Psych/Mental Status: Appropriate, Flat Affect Laboratory Results 02/15/18 06:54: Sodium 139, Potassium 3.4 L, Chloride 108 H, Carbon Dioxide 22.0, Anion Gap 9, BUN 15, Creatinine 2.33 H, Estim Creat Clear Calc 36.29, Est GFR (MDRD) Af Amer 38 L, Est GFR (MDRD) Non-Af 32 L, BUN/Creatinine Ratio 6.4 L, Glucose 118 H, Calcium 8.4 L, Phosphorus 3.7, Magnesium 1.5 L Current Medications Amlodipine Besylate (Norvasc) 10 mg PO DAILY [facility] Last Admin: 02/15/18 08:45 Dose: 10 mg Atenolol (Tenormin (Beta Mariela)) 25 mg PO BID [facility] Last Admin: 02/15/18 08:45 Dose: 25 mg Dicyclomine HCl (Bentyl) 20 mg PO Q6H PRN PRN PRN Reason: abdominal discomfort Last Admin: 02/15/18 09:00 Dose: 20 mg [facility] Last Admin: 02/15/18 08:27 Dose: 1 mg Heparin Sodium (Porcine) (Heparin Na) 5,000 unit SC Q8 [facility] Last Admin: 02/15/18 06:34 Dose: 5,000 unit Hydroxyzine Pamoate (Vistaril Pamoate Capsule) 50 mg PO Q6H PRN PRN PRN Reason: Mild Anxiety (score 1/3) Last Admin: 02/14/18 21:58 Dose: 50 mg Lactated Ringer's () 1,000 mls @ 100 mls/hr IV .Q10H [facility] Last Admin: 02/14/18 22:09 Dose: 100 mls/hr Levetiracetam (Keppra Tablet) 500 mg PO BID [facility] Last Admin: 02/15/18 08:45 Dose: 500 mg Lorazepam (Ativan) 2 mg PO Q2H PRN PRN; Protocol PRN Reason: CIWA score > 8 but <15 Last Admin: 02/14/18 07:51 Dose: 2 mg Lorazepam (Ativan) 2 mg PO UD PRN; Protocol PRN Reason: CIWA score >/=15. Lorazepam (Ativan) 2 mg IV Q2H PRN PRN; Protocol PRN Reason: CIWA score > 8 but <15 Last Admin: 02/15/18 08:41 Dose: 2 mg Lorazepam (Ativan) 2 mg IV UD PRN; Protocol PRN Reason: CIWA score >/=15. Last Admin: 02/14/18 23:31 Dose: 2 mg Magnesium Hydroxide (Milk Of Magnesia) 30 ml PO DAILY PRN PRN PRN Reason: Constipation Methocarbamol (Methocarbamol) 750 mg PO Q6H PRN PRN PRN Reason: Muscle Aches Last Admin: 02/15/18 08:41 Dose: 750 mg Multivitamins ([facility]ivitamin) [facility] Last Admin: 02/15/18 08:27 Dose: 1 tablet Nicotine (Nicoderm Cq (Pbkc)) 21 mg TRANSDERM. DAILY [facility] Last Admin: 02/15/18 08:43 Dose: 21 mg Quetiapine Fumarate (Seroquel) 100 mg PO QHS [facility] Last Admin: 02/14/18 21:59 Dose: 100 mg Sodium Chloride () 5 - 15 ml IV UD PRN PRN Reason: SALINE FLUSH Last Admin: 02/13/18 21:20 Dose: 10 ml Thiamine HCl (Vitamin B1) 100 mg PO DAILYCM [facility] Last Admin: 02/15/18 08:27 Dose: 100 mg Medical Necessity - Tobacco Use Smoking Status: Current every day smoker Tobacco Use: Cigarettes Assessment/Plan All Active Problems Isopropyl alcohol poisoning (Acute) Suicide attempt (Acute) OSMANI (acute kidney injury) (Acute) Alcohol withdrawal (Acute) 1. OSMANI: 2/2 isopropyl alcohol + dehydration IVF US negative FENA 1.82% 2. Isopropyl alcohol ingestion IVF, supportive mgmt acetone level negative Admission Osmolar gap 18 (slightly elevated [normal is less than or equal to 10]) supportive mgmt 3. Alcohol abuse was just hospitalized and left AMA for alcohol withdrawal on the Has been requiring as needed ativan 4. Polysubstance intake monitor 5. Suicide attempt needs sitter will need crisis evaluation when medically stable. 6. DVT proph: LMWH. 7. Disposition: when medically stable, consult Crisis for evaluation for inpatient psychiatric unit. Informed SW about the patient's concerns about his court date and potential eviction. Code Visit Inpatient E&M: 52422 Subs Hosp L2
--- NOTE | 2018-02-15 10:30 | PN_ITS ---
Patient Problems: Active and Suspected Problems Isopropyl alcohol poisoning (Acute) Suicide attempt (Acute) OSMANI (acute kidney injury) (Acute) Alcohol withdrawal (Acute) Subjective: concerned about a court date he has this week and also, that he may be evicted this week, too. Vitals/I&O's: Vital Signs Temp Pulse Resp BP Pulse Ox 36.6 C 79 16 130/91 H 97 02/15/18 04:05 02/15/18 04:05 02/15/18 04:05 02/15/18 04:05 02/15/18 04:05 Oxygen Flow Rate (L/min) 2 Oxygen Delivery Method Room Air Weight: 96.9 kg Body Mass Index (BMI) 30.2 Finger Stick Blood Glucose 98 Intake and Output for Last 24 Hours 02/13/18 02/14/18 02/15/18 23:59 23:59 23:59 Intake Total 2794 / 2794 4413 / 4413 2296 / 2296 Output Total 1400 / 1400 Balance 1394 / 1394 4413 / 4413 2296 / 2296 General: Alert, Cooperative, No apparent distress HEENT: Atraumatic, Normocephalic Oral: Moist Mucosa, No Gingival or Mucosal Lesions/ Ulcerations Neck: No Nodes, Thyroid Normal Size and Texture Lungs: Clear to auscultation, Normal air movement, No rhonchi, No wheeze Cardiovascular: Regular rate, Regular Rhythm, Normal S1, Normal S2 Abdomen: Bowel Sounds Present, Soft, Non Tender, Non-Distended, No Hepato- splenomegaly Extremities: No edema, No Calf Tenderness Skin: No rashes, No breakdown Musculoskeletal: No Tenderness to Palpation of Joints or Extremities, No Muscle Wasting Psych/Mental Status: Appropriate, Flat Affect Laboratory Results 02/15/18 06:54: Sodium 139, Potassium 3.4 L, Chloride 108 H, Carbon Dioxide 22.0, Anion Gap 9, BUN 15, Creatinine 2.33 H, Estim Creat Clear Calc 36.29, Est GFR (MDRD) Af Amer 38 L, Est GFR (MDRD) Non-Af 32 L, BUN/Creatinine Ratio 6.4 L, Glucose 118 H, Calcium 8.4 L, Phosphorus 3.7, Magnesium 1.5 L Current Medications Amlodipine Besylate (Norvasc) 10 mg PO DAILY [facility] Last Admin: 02/15/18 08:45 Dose: 10 mg Atenolol (Tenormin (Beta Mariela)) 25 mg PO BID [facility] Last Admin: 02/15/18 08:45 Dose: 25 mg Dicyclomine HCl (Bentyl) 20 mg PO Q6H PRN PRN PRN Reason: abdominal discomfort Last Admin: 02/15/18 09:00 Dose: 20 mg [facility]olic [facility] (F[facility] Acid) [facility] Last Admin: 02/15/18 08:27 Dose: 1 mg Heparin Sodium (Porcine) (Heparin Na) 5,000 unit SC Q8 [facility] Last Admin: 02/15/18 06:34 Dose: 5,000 unit Hydroxyzine Pamoate (Vistaril Pamoate Capsule) 50 mg PO Q6H PRN PRN PRN Reason: Mild Anxiety (score 1/3) Last Admin: 02/14/18 21:58 Dose: 50 mg Lactated Ringer's () 1,000 mls @ 100 mls/hr IV .Q10H [facility] Last Admin: 02/14/18 22:09 Dose: 100 mls/hr Levetiracetam (Keppra Tablet) 500 mg PO BID [facility] Last Admin: 02/15/18 08:45 Dose: 500 mg Lorazepam (Ativan) 2 mg PO Q2H PRN PRN; Protocol PRN Reason: CIWA score > 8 but <15 Last Admin: 02/14/18 07:51 Dose: 2 mg Lorazepam (Ativan) 2 mg PO UD PRN; Protocol PRN Reason: CIWA score >/=15. Lorazepam (Ativan) 2 mg IV Q2H PRN PRN; Protocol PRN Reason: CIWA score > 8 but <15 Last Admin: 02/15/18 08:41 Dose: 2 mg Lorazepam (Ativan) 2 mg IV UD PRN; Protocol PRN Reason: CIWA score >/=15. Last Admin: 02/14/18 23:31 Dose: 2 mg Magnesium Hydroxide (Milk Of Magnesia) 30 ml PO DAILY PRN PRN PRN Reason: Constipation Methocarbamol (Methocarbamol) 750 mg PO Q6H PRN PRN PRN Reason: Muscle Aches Last Admin: 02/15/18 08:41 Dose: 750 mg [facility]ivit[facility] ([facility]itamin) [facility] Last Admin: 02/15/18 08:27 Dose: 1 tablet Nicotine (Nicoderm Cq (Pbkc)) 21 mg TRANSDERM. DAILY [facility] Last Admin: 02/15/18 08:43 Dose: 21 mg Quetiapine Fumarate (Seroquel) 100 mg PO QHS [facility] Last Admin: 02/14/18 21:59 Dose: 100 mg Sodium Chloride () 5 - 15 ml IV UD PRN PRN Reason: SALINE FLUSH Last Admin: 02/13/18 21:20 Dose: 10 ml Thiamine HCl (Vitamin B1) 100 mg PO DAILYCM [facility] Last Admin: 02/15/18 08:27 Dose: 100 mg Medical Necessity - Tobacco Use Smoking Status: Current every day smoker Tobacco Use: Cigarettes Assessment/Plan All Active Problems Isopropyl alcohol poisoning (Acute) Suicide attempt (Acute) OSMANI (acute kidney injury) (Acute) Alcohol withdrawal (Acute) 1. OSMANI: * 2/2 isopropyl alcohol + dehydration * IVF * US negative * FENA 1.82% 2. Isopropyl alcohol ingestion * IVF, supportive mgmt * acetone level negative * Admission Osmolar gap 18 (slightly elevated [normal is less than or equal to 10]) * supportive mgmt 3. Alcohol abuse * was just hospitalized and left AMA for alcohol withdrawal on the * Has been requiring as needed ativan 4. Polysubstance intake * monitor 5. Suicide attempt * needs sitter * will need crisis evaluation when medically stable. 6. DVT proph: LMWH. 7. Disposition: when medically stable, consult Crisis for evaluation for inpatient psychiatric unit. Informed SW about the patient's concerns about his court date and potential eviction. Code Visit Inpatient E&M: 38624 Subs Hosp L2
[2018-02-15] MEDS: Lactated Ringers 1,000 ML 100 ML IV ×2 (10:43→21:20)
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
[2018-02-15] MEDS: hydrOXYzine PAM 25 MG Capsule 50 MG PO (14:25)
[2018-02-15] MEDS: QUEtiapine 100 MG Tablet PO (21:20)
[2018-02-15] MEDS: LORazepam 1 MG Tablet 2 MG PO (22:09)
[2018-02-16] VITALS (7 sets, daily range): BP systolic 130–144; BP diastolic 84–107; PULSE 68–75; RESP 14–18; TEMP 36.7–37.3; O2SAT 92–97
[2018-02-16] MEDS: Methocarbamol 750 MG Tablet PO ×3 (00:40→21:51)
[2018-02-16] MEDS: LORazepam 1 MG Tablet 2 MG PO ×3 (00:40→06:04)
[2018-02-16] MEDS: Heparin Injection (Vial) 5,000 UNIT/ML VIAL 5000 UNIT SC ×3 (06:04→21:51)
[2018-02-16 07:02] LABS: Anion Gap 11 (5-15); BUN 17 mg/dL (7-18); BUN/Creat Ratio 8.4 RATIO (10-20); Calcium,Total 9.1 mg/dL (8.5-10.1); Chloride 105 mmol/L (98-107); Creatinine, Serum 2.03 mg/dL (0.70-1.30); EST Glomerular Filtration Rate 37 mL/min (>60); Est Glom Filt Rate - Afr Amer 45 mL/min (>60); Estimated Creatinine Clearance 41.65 ml/min; Glucose 89 mg/dL (74-106); Potassium 3.8 mmol/L (3.5-5.1); Sodium Level 141 mmol/L (136-145)
[2018-02-16] MEDS: Lactated Ringers 1,000 ML 100 ML IV (07:26)
[2018-02-16] MEDS: Folic Acid 1 MG Tablet PO (09:26)
[2018-02-16] MEDS: Thiamine Hydrochloride 100 MG Tablet PO (09:26)
[2018-02-16] MEDS: Multivitamins,Therapeutic Tablet 1 TABLET PO (09:27)
[2018-02-16] MEDS: levETIRAcetam 500 MG Tablet PO ×2 (09:27→21:51)
[2018-02-16] MEDS: Atenolol 25 MG Tablet PO ×2 (09:30→21:51)
[2018-02-16] MEDS: amLODIPine 10 MG Tablet PO (09:30)
--- NOTE | 2018-02-16 09:41 | PCM.PN.HOSP ---
Patient Problems: Active and Suspected Problems Isopropyl alcohol poisoning (Acute) Suicide attempt (Acute) OSMANI (acute kidney injury) (Acute) Alcohol withdrawal (Acute) Subjective: Feels better. Anxious to go home. States that he has counselors previously set up. Vitals/I&O's: Vital Signs Temp Pulse Resp BP Pulse Ox 36.8 C 73 18 130/89 H 95 02/16/18 09:23 02/16/18 09:23 02/16/18 09:23 02/16/18 09:23 02/16/18 09:23 Oxygen Flow Rate (L/min) 2 Oxygen Delivery Method Room Air Weight: 96.9 kg Body Mass Index (BMI) 30.2 Finger Stick Blood Glucose 98 Intake and Output for Last 24 Hours 02/14/18 02/15/18 02/16/18 23:59 23:59 23:59 Intake Total 4413 / 4413 3012 / 3012 3036 / 3036 Balance 4413 / 4413 3012 / 3012 3036 / 3036 General: Alert, Cooperative, No apparent distress, - - initially no tremors, but did start shaking later in the conversation. HEENT: Atraumatic, Normocephalic Oral: Moist Mucosa, No Gingival or Mucosal Lesions/ Ulcerations Neck: No Nodes, Thyroid Normal Size and Texture Lungs: Clear to auscultation, Normal air movement, No rhonchi, No wheeze Cardiovascular: Regular rate, Regular Rhythm, Normal S1, Normal S2, No murmurs Abdomen: Bowel Sounds Present, Soft, Non Tender, Non-Distended, No Hepato-splenomegaly Extremities: No edema, No Calf Tenderness Skin: No rashes, No breakdown Psych/Mental Status: Normal Affect, Appropriate Laboratory Results 02/16/18 06:26: Sodium 141, Potassium 3.8, Chloride 105, Carbon Dioxide 25.0, Anion Gap 11, BUN 17, Creatinine 2.03 H, Estim Creat Clear Calc 41.65, Est GFR (MDRD) Af Amer 45 L, Est GFR (MDRD) Non-Af 37 L, BUN/Creatinine Ratio 8.4 L, Glucose 89, Calcium 9.1 Current Medications Amlodipine Besylate (Norvasc) 10 mg PO DAILY [facility] Last Admin: 02/16/18 09:30 Dose: 10 mg Atenolol (Tenormin (Beta Mariela)) 25 mg PO BID [facility] Last Admin: 02/16/18 09:30 Dose: 25 mg Dicyclomine HCl (Bentyl) 20 mg PO Q6H PRN PRN PRN Reason: abdominal discomfort Last Admin: 02/15/18 18:58 Dose: 20 mg [facility] Last Admin: 02/16/18 09:26 Dose: 1 mg Heparin Sodium (Porcine) (Heparin Na) 5,000 unit SC Q8 [facility] Last Admin: 02/16/18 06:04 Dose: 5,000 unit Hydroxyzine Pamoate (Vistaril Pamoate Capsule) 50 mg PO Q6H PRN PRN PRN Reason: Mild Anxiety (score 1/3) Last Admin: 02/15/18 14:25 Dose: 50 mg Levetiracetam (Keppra Tablet) 500 mg PO BID [facility] Last Admin: 02/16/18 09:27 Dose: 500 mg Magnesium Hydroxide (Milk Of Magnesia) 30 ml PO DAILY PRN PRN PRN Reason: Constipation Methocarbamol (Methocarbamol) 750 mg PO Q6H PRN PRN PRN Reason: Muscle Aches Last Admin: 02/16/18 00:40 Dose: 750 mg Multivitamins (Multivitamin) [facility] Last Admin: 02/16/18 09:27 Dose: 1 tablet Nicotine (Nicoderm Cq (Pbkc)) 21 mg TRANSDERM. DAILY [facility] Last Admin: 02/16/18 09:28 Dose: 21 mg Quetiapine Fumarate (Seroquel) 100 mg PO QHS [facility] Last Admin: 02/15/18 21:20 Dose: 100 mg Sodium Chloride () 5 - 15 ml IV UD PRN PRN Reason: SALINE FLUSH Last Admin: 02/13/18 21:20 Dose: 10 ml Thiamine HCl (Vitamin B1) [facility] Last Admin: 02/16/18 09:26 Dose: 100 mg Medical Necessity - Tobacco Use Smoking Status: Current every day smoker Tobacco Use: Cigarettes Assessment/Plan All Active Problems Isopropyl alcohol poisoning (Acute) Suicide attempt (Acute) OSMANI (acute kidney injury) (Acute) Alcohol withdrawal (Acute) 1. OSMANI: 2/2 isopropyl alcohol + dehydration US negative FENA 1.82% improving HLIV 2. Isopropyl alcohol ingestion IVF, supportive mgmt acetone level negative Admission Osmolar gap 18 (slightly elevated [normal is less than or equal to 10]) supportive mgmt 3. Alcohol withdrawal DW nursing, he has been receiving ativan for tremors I am not sure these are tremors, will stop ativan altogether, if gets worse from a withdrawal standpoint, then will resume was just hospitalized and left AMA for alcohol withdrawal on the Has been requiring as needed ativan 4. Polysubstance intake monitor 5. Suicide attempt needs sitter will need crisis evaluation when medically stable. 6. DVT proph: LMWH. 7. Disposition: when medically stable, consult Crisis for evaluation for inpatient psychiatric unit. Informed SW about the patient's concerns about his court date and potential eviction. Code Visit Inpatient E&M: 33754 Subs Hosp L2
--- NOTE | 2018-02-16 09:45 | PN_ITS ---
Patient Problems: Active and Suspected Problems Isopropyl alcohol poisoning (Acute) Suicide attempt (Acute) OSMANI (acute kidney injury) (Acute) Alcohol withdrawal (Acute) Subjective: Feels better. Anxious to go home. States that he has counselors previously set up. Vitals/I&O's: Vital Signs Temp Pulse Resp BP Pulse Ox 36.8 C 73 18 130/89 H 95 02/16/18 09:23 02/16/18 09:23 02/16/18 09:23 02/16/18 09:23 02/16/18 09:23 Oxygen Flow Rate (L/min) 2 Oxygen Delivery Method Room Air Weight: 96.9 kg Body Mass Index (BMI) 30.2 Finger Stick Blood Glucose 98 Intake and Output for Last 24 Hours 02/14/18 02/15/18 02/16/18 23:59 23:59 23:59 Intake Total 4413 / 4413 3012 / 3012 3036 / 3036 Balance 4413 / 4413 3012 / 3012 3036 / 3036 General: Alert, Cooperative, No apparent distress, - - initially no tremors, but did start shaking later in the conversation. HEENT: Atraumatic, Normocephalic Oral: Moist Mucosa, No Gingival or Mucosal Lesions/ Ulcerations Neck: No Nodes, Thyroid Normal Size and Texture Lungs: Clear to auscultation, Normal air movement, No rhonchi, No wheeze Cardiovascular: Regular rate, Regular Rhythm, Normal S1, Normal S2, No murmurs Abdomen: Bowel Sounds Present, Soft, Non Tender, Non-Distended, No Hepato- splenomegaly Extremities: No edema, No Calf Tenderness Skin: No rashes, No breakdown Psych/Mental Status: Normal Affect, Appropriate Laboratory Results 02/16/18 06:26: Sodium 141, Potassium 3.8, Chloride 105, Carbon Dioxide 25.0, Anion Gap 11, BUN 17, Creatinine 2.03 H, Estim Creat Clear Calc 41.65, Est GFR (MDRD) Af Amer 45 L, Est GFR (MDRD) Non-Af 37 L, BUN/Creatinine Ratio 8.4 L, Glucose 89, Calcium 9.1 Current Medications Amlodipine Besylate (Norvasc) 10 mg PO DAILY [facility] Last Admin: 02/16/18 09:30 Dose: 10 mg Atenolol (Tenormin (Beta Mariela)) 25 mg PO BID [facility] Last Admin: 02/16/18 09:30 Dose: 25 mg Dicyclomine HCl (Bentyl) 20 mg PO Q6H PRN PRN PRN Reason: abdominal discomfort Last Admin: 02/15/18 18:58 Dose: 20 mg Folic Acid (Folic Acid) [facility] Last Admin: 02/16/18 09:26 Dose: 1 mg Heparin Sodium (Porcine) (Heparin Na) 5,000 unit SC Q8 [facility] Last Admin: 02/16/18 06:04 Dose: 5,000 unit Hydroxyzine Pamoate (Vistaril Pamoate Capsule) 50 mg PO Q6H PRN PRN PRN Reason: Mild Anxiety (score 1/3) Last Admin: 02/15/18 14:25 Dose: 50 mg Levetiracetam (Keppra Tablet) 500 mg PO BID [facility] Last Admin: 02/16/18 09:27 Dose: 500 mg Magnesium Hydroxide (Milk Of Magnesia) 30 ml PO DAILY PRN PRN PRN Reason: Constipation Methocarbamol (Methocarbamol) 750 mg PO Q6H PRN PRN PRN Reason: Muscle Aches Last Admin: 02/16/18 00:40 Dose: 750 mg Multivitamins (Multivitamin) [facility] Last Admin: 02/16/18 09:27 Dose: 1 tablet Nicotine (Nicoderm Cq (Pbkc)) 21 mg TRANSDERM. DAILY [facility] Last Admin: 02/16/18 09:28 Dose: 21 mg Quetiapine Fumarate (Seroquel) 100 mg PO QHS [facility] Last Admin: 02/15/18 21:20 Dose: 100 mg Sodium Chloride () 5 - 15 ml IV UD PRN PRN Reason: SALINE FLUSH Last Admin: 02/13/18 21:20 Dose: 10 ml Thiamine HCl (Vitamin B1) [facility] Last Admin: 02/16/18 09:26 Dose: 100 mg Medical Necessity - Tobacco Use Smoking Status: Current every day smoker Tobacco Use: Cigarettes Assessment/Plan All Active Problems Isopropyl alcohol poisoning (Acute) Suicide attempt (Acute) OSMANI (acute kidney injury) (Acute) Alcohol withdrawal (Acute) 1. OSMANI: * 2/2 isopropyl alcohol + dehydration * US negative * FENA 1.82% * improving * HLIV 2. Isopropyl alcohol ingestion * IVF, supportive mgmt * acetone level negative * Admission Osmolar gap 18 (slightly elevated [normal is less than or equal to 10]) * supportive mgmt 3. Alcohol withdrawal * DW nursing, he has been receiving ativan for tremors * I am not sure these are tremors, * will stop ativan altogether, if gets worse from a withdrawal standpoint, then will resume * was just hospitalized and left AMA for alcohol withdrawal on the * Has been requiring as needed ativan 4. Polysubstance intake * monitor 5. Suicide attempt * needs sitter * will need crisis evaluation when medically stable. 6. DVT proph: LMWH. 7. Disposition: when medically stable, consult Crisis for evaluation for inpatient psychiatric unit. Informed SW about the patient's concerns about his court date and potential eviction. Code Visit Inpatient E&M: 31517 Subs Hosp L2
--- NOTE | 2018-02-16 12:05 | NURSING ---
Addendum entered by Archana Almendarez 02/16/18 12:05: as had discussed with in rounds that may call crisis at noon if no incidents since stopping ativan. Original Note: left message for crisis, Hugh to call back.
--- NOTE | 2018-02-16 12:32 | NURSING ---
aware per aleksandra from crisis that it will be the evening person cheyanne seeing patient d/t time contraints.
--- NOTE | 2018-02-16 14:36 | DCINST_ITS ---
- Discharge Diagnoses Current Active Problems: Current Active and Chronic Problems Isopropyl alcohol poisoning (Acute) Suicide attempt (Acute) OSMANI (acute kidney injury) (Acute) Alcohol withdrawal (Acute) You will use the following diet at home:: No restrictions Your food should be the consistency of: Regular Your liquids should be the consistency of: Regular/Thin Discharge Activity: Return to Normal Activity Allergies/Adverse Reactions: Allergies amoxicillin [Amoxicillin] Allergy (Verified 02/10/18 19:29) Anaphylaxis Penicillins Allergy (Verified 02/10/18 19:29) Anaphylaxis Medications to take at Discharge Amlodipine [Norvasc] 10 mg PO DAILY 01/30/18 Atenolol [Tenormin (beta clem)] 25 mg PO BID 01/30/18 levETIRAcetam tablet [Keppra tablet] 500 mg PO BID 01/30/18 Folic Acid 1 mg PO DAILYCM #30 tablet 02/01/18 Quetiapine Fumarate [Seroquel] 100 mg PO QHS #30 tablet 02/01/18 Thiamine Hydrochloride [Vitamin B1] 100 mg PO DAILYCM #30 tablet 02/01/18 Primary Care Physician: Care Physician,No Primary [Primary Care Provider] - Test Results: Test results from this visit will be discussed in further detail at your follow- up appointment, if applicable. Proposed Discharge Date: 02/16/18
--- NOTE | 2018-02-16 14:36 | PCM.DC.SUM ---
Discharge Date and Diagnosis - Problem List Patient Problems: Active and Suspected Problems Isopropyl alcohol poisoning (Acute) Suicide attempt (Acute) OSMANI (acute kidney injury) (Acute) Alcohol withdrawal (Acute) Date of Admission: 02/13/18 Date of Discharge: 02/16/18 - Primary Discharge Diagnosis Active and Suspected Problems Isopropyl alcohol poisoning (Acute) Suicide attempt (Acute) OSMANI (acute kidney injury) (Acute) Alcohol withdrawal (Acute) - Secondary Discharge Diagnosis Chronic Problems DM type 2 (diabetes mellitus, type 2) (Chronic) Bipolar 1 disorder (Chronic) History of kidney stones (Chronic) Continuous chronic alcoholism (Chronic) up to 1 gallon vodka daily Tobacco use (Chronic) Psychiatric pseudoseizure (Chronic) Homelessness (Chronic) Benign essential hypertension (Chronic) Hospital Course and Treatment Imaging Results: Clinical Impression(s) from Imaging Studies Renal Ultrasound 02/13/18 11:07 IMPRESSION: Normal ultrasound of the kidneys and urinary bladder. Electronically Signed: Vick Aviles DO at 18:27 EST Tel , Service support , Operations: None Procedures: None Summary of Care Provided: The patient is a 52 year old M presents with intentional drug and isopropyl alcohol ingestion and suicide attempt. Monitored and did well. Currently awaiting on psychiatric placement. 1. OSMANI: 2/2 isopropyl alcohol + dehydration US negative FENA 1.82% improving HLIV 2. Isopropyl alcohol ingestion improving acetone level negative Admission Osmolar gap 18 (slightly elevated [normal is less than or equal to 10]) supportive mgmt 3. Alcohol withdrawal DW nursing, he has been receiving ativan for tremors I am not sure these are tremors, will stop ativan altogether, if gets worse from a withdrawal standpoint, then will resume was just hospitalized and left AMA for alcohol withdrawal on the Has been requiring as needed ativan stable off of ativan 4. Polysubstance intake monitor 5. Suicide attempt needs sitter crisis evaluation pending to psych unit v home pending crisis evaluation. [] Patient Problems: Active and Suspected Problems Isopropyl alcohol poisoning (Acute) Suicide attempt (Acute) OSMANI (acute kidney injury) (Acute) Alcohol withdrawal (Acute) - Physical Exam Vital Signs Temp Pulse Resp BP Pulse Ox 36.8 C 73 18 130/89 H 95 02/16/18 09:23 02/16/18 09:23 02/16/18 09:23 02/16/18 09:23 02/16/18 09:23 Oxygen Flow Rate (L/min) 2 Oxygen Delivery Method Room Air Weight: 96.9 kg Body Mass Index (BMI) 30.2 Finger Stick Blood Glucose 98 Intake and Output for Last 24 Hours 02/14/18 02/15/18 02/16/18 23:59 23:59 23:59 Intake Total 4413 / 4413 3012 / 3012 3036 / 3036 Balance 4413 / 4413 3012 / 3012 3036 / 3036 Laboratory Tests Past 24 Hrs 02/16/18 06:26 Sodium 141 Potassium 3.8 Chloride 105 Carbon Dioxide 25.0 Anion Gap 11 BUN 17 Creatinine 2.03 H Estim Creat Clear Calc 41.65 Est GFR (MDRD) Af Amer 45 L Est GFR (MDRD) Non-Af 37 L BUN/Creatinine Ratio 8.4 L Glucose 89 Calcium 9.1 Discharge Diet: No Restrictions Discharge Activity: Return to Normal Activity Home Medications: Medications to take at Discharge Amlodipine [Norvasc] 10 mg PO DAILY 01/30/18 Atenolol [Tenormin (beta clem)] 25 mg PO BID 01/30/18 levETIRAcetam tablet [Keppra tablet] 500 mg PO BID 01/30/18 Folic Acid 1 mg PO DAILYCM #30 tablet 02/01/18 Quetiapine Fumarate [Seroquel] 100 mg PO QHS #30 tablet 02/01/18 Thiamine Hydrochloride [Vitamin B1] 100 mg PO DAILYCM #30 tablet 02/01/18 Primary Care Physician: Care Physician,No Primary [Primary Care Provider] - Disposition: Home Minutes spent on discharge:: 32 Patient Condition:: Good Medical Necessity - Tobacco Use Smoking Status: Current every day smoker Tobacco Use: Cigarettes Meaningful Use Info Meaningful Use Diagnoses (Choose all that apply): None applicable Code Visit Inpatient E&M: 07716 Disch Hosp - if not discharged 02/16, use 232.
--- NOTE | 2018-02-16 14:40 | DS.PCM_ITS ---
Discharge Date and Diagnosis - Problem List Patient Problems: Active and Suspected Problems Isopropyl alcohol poisoning (Acute) Suicide attempt (Acute) OSMANI (acute kidney injury) (Acute) Alcohol withdrawal (Acute) Date of Admission: 02/13/18 Date of Discharge: 02/16/18 - Primary Discharge Diagnosis Active and Suspected Problems Isopropyl alcohol poisoning (Acute) Suicide attempt (Acute) OSMANI (acute kidney injury) (Acute) Alcohol withdrawal (Acute) - Secondary Discharge Diagnosis Chronic Problems DM type 2 (diabetes mellitus, type 2) (Chronic) Bipolar 1 disorder (Chronic) History of kidney stones (Chronic) Continuous chronic alcoholism (Chronic) up to 1 gallon vodka daily Tobacco use (Chronic) Psychiatric pseudoseizure (Chronic) Homelessness (Chronic) Benign essential hypertension (Chronic) Hospital Course and Treatment Imaging Results: Clinical Impression(s) from Imaging Studies Renal Ultrasound 02/13/18 11:07 IMPRESSION: Normal ultrasound of the kidneys and urinary bladder. Electronically Signed: Vick Aviles DO at 18:27 EST Tel , Service support , Operations: None Procedures: None Summary of Care Provided: The patient is a 52 year old M presents with intentional drug and isopropyl alcohol ingestion and suicide attempt. Monitored and did well. Currently awaiting on psychiatric placement. 1. OSMANI: * 2/2 isopropyl alcohol + dehydration * US negative * FENA 1.82% * improving * HLIV 2. Isopropyl alcohol ingestion * improving * acetone level negative * Admission Osmolar gap 18 (slightly elevated [normal is less than or equal to 10]) * supportive mgmt 3. Alcohol withdrawal * DW nursing, he has been receiving ativan for tremors * I am not sure these are tremors, * will stop ativan altogether, if gets worse from a withdrawal standpoint, then will resume * was just hospitalized and left AMA for alcohol withdrawal on the * Has been requiring as needed ativan * stable off of ativan 4. Polysubstance intake * monitor 5. Suicide attempt * needs sitter * crisis evaluation pending * to psych unit v home pending crisis evaluation. [] Patient Problems: Active and Suspected Problems Isopropyl alcohol poisoning (Acute) Suicide attempt (Acute) OSMANI (acute kidney injury) (Acute) Alcohol withdrawal (Acute) - Physical Exam Vital Signs Temp Pulse Resp BP Pulse Ox 36.8 C 73 18 130/89 H 95 02/16/18 09:23 02/16/18 09:23 02/16/18 09:23 02/16/18 09:23 02/16/18 09:23 Oxygen Flow Rate (L/min) 2 Oxygen Delivery Method Room Air Weight: 96.9 kg Body Mass Index (BMI) 30.2 Finger Stick Blood Glucose 98 Intake and Output for Last 24 Hours 02/14/18 02/15/18 02/16/18 23:59 23:59 23:59 Intake Total 4413 / 4413 3012 / 3012 3036 / 3036 Balance 4413 / 4413 3012 / 3012 3036 / 3036 Laboratory Tests Past 24 Hrs 02/16/18 06:26 Sodium 141 Potassium 3.8 Chloride 105 Carbon Dioxide 25.0 Anion Gap 11 BUN 17 Creatinine 2.03 H Estim Creat Clear Calc 41.65 Est GFR (MDRD) Af Amer 45 L Est GFR (MDRD) Non-Af 37 L BUN/Creatinine Ratio 8.4 L Glucose 89 Calcium 9.1 Discharge Diet: No Restrictions Discharge Activity: Return to Normal Activity Home Medications: Medications to take at Discharge Amlodipine [Norvasc] 10 mg PO DAILY 01/30/18 Atenolol [Tenormin (beta clem)] 25 mg PO BID 01/30/18 levETIRAcetam tablet [Keppra tablet] 500 mg PO BID 01/30/18 Folic Acid 1 mg PO DAILYCM #30 tablet 02/01/18 Quetiapine Fumarate [Seroquel] 100 mg PO QHS #30 tablet 02/01/18 Thiamine Hydrochloride [Vitamin B1] 100 mg PO DAILYCM #30 tablet 02/01/18 Primary Care Physician: Care Physician,No Primary [Primary Care Provider] - Disposition: Home Minutes spent on discharge:: 32 Patient Condition:: Good Medical Necessity - Tobacco Use Smoking Status: Current every day smoker Tobacco Use: Cigarettes Meaningful Use Info Meaningful Use Diagnoses (Choose all that apply): None applicable Code Visit Inpatient E&M: 77186 Disch Hosp - if not discharged 02/16, use 232.
--- NOTE | 2018-02-16 15:20 | CASEMGMT ---
Social Work Note Pt requesting to speak to this worker. SW met with pt. Pt states he wants to talk to someone so he can go home. SW explained to pt that he has to be cleared by crisis before he is able to discharge. Pt states understanding, denied additional needs or concerns at this time. Pt has been to [facility] multiple times and has been provided multiple resources including information regarding addiction counseling resources, [facility], Homeless shelters, Medicaid application, and HCAP applications. Plan: Crisis to evaluate pt Tiana Puente REGISTERED NURSE HH CASE MANAGER, GENERAL UTILITY MAINTENANCE REPAIRER
[2018-02-16] MEDS: hydrOXYzine PAM 25 MG Capsule 50 MG PO ×2 (15:43→21:51)
[2018-02-16 15:56] LABS: Creatinine, Urine 0.63 g/L (0.30-3.00)
[2018-02-16] MEDS: QUEtiapine 100 MG Tablet PO (21:51)
[2018-02-16] MEDS: 0.9% NaCl Peripheral Flush Adult/Peds IV (21:54)
[2018-02-17 05:29] VITALS: BP 133/82; PULSE 60; RESP 14; TEMP 37; O2SAT 100
[2018-02-17] MEDS: Heparin Injection (Vial) 5,000 UNIT/ML VIAL 5000 UNIT SC ×3 (05:31→21:36)
[2018-02-17] MEDS: Folic Acid 1 MG Tablet PO (08:51)
[2018-02-17] MEDS: Multivitamins,Therapeutic Tablet 1 TABLET PO (08:51)
[2018-02-17] MEDS: Thiamine Hydrochloride 100 MG Tablet PO (08:51)
[2018-02-17] MEDS: hydrOXYzine PAM 25 MG Capsule 50 MG PO (08:57)
[2018-02-17] MEDS: Methocarbamol 750 MG Tablet PO (08:57)
[2018-02-17] MEDS: amLODIPine 10 MG Tablet PO (10:02)
[2018-02-17] MEDS: Atenolol 25 MG Tablet PO ×2 (10:02→21:34)
[2018-02-17] MEDS: levETIRAcetam 500 MG Tablet PO ×2 (10:02→21:35)
[2018-02-17 11:01] LABS: Eosinophil Ct. Urine No Eosinophils Seen % (.)
--- NOTE | 2018-02-17 12:24 | CASEMGMT ---
Received voicemail from patient requesting a call back to his cell phone. Spoke with JOSE Cuevas, who plans to see patient on unit. Alida Haji LPN Clinical Support
--- NOTE | 2018-02-17 13:38 | PCM.PN.HOSP ---
Patient Problems: Active and Suspected Problems Isopropyl alcohol poisoning (Acute) Suicide attempt (Acute) OSMANI (acute kidney injury) (Acute) Subjective: Patient inquiring why he is unable to be discharged and I his case is going to prove a court. Requesting a lubricating machine tender stating that he is being here against his will. Stating that the suicide attempt was alleged. Vitals/I&O's: Vital Signs Temp Pulse Resp BP Pulse Ox 37.0 C 60 14 133/82 H 100 02/17/18 05:29 02/17/18 05:29 02/17/18 05:29 02/17/18 05:29 02/17/18 05:29 Oxygen Flow Rate (L/min) 2 Oxygen Delivery Method Room Air Weight: 96.9 kg Body Mass Index (BMI) 30.2 Finger Stick Blood Glucose 98 Intake and Output for Last 24 Hours 02/15/18 02/16/18 02/17/18 23:59 23:59 23:59 Intake Total 3012 / 3012 3861 / 3861 1120 / 1120 Balance 3012 / 3012 3861 / 3861 1120 / 1120 General: Alert, Cooperative, No apparent distress HEENT: Atraumatic, Normocephalic Psych/Mental Status: Agitated, Flat Affect Laboratory Results 02/13/18 07:00: Urine Creatinine 0.63, Ur Arsenic/Creat Ratio TNP, Inorganic Arsenic , Urine Arsenic , Ur Arsenic 24 Hour TNP, Urine Lead , Urine Lead 24 Hour TNP, U Lead/Creatinine Ratio TNP, Urine Mercury , Urine Mercury 24 Hour TNP, Ur Mercury/Creat Ratio TNP 02/13/18 10:05: Eos Smear Total Cells No Eosinophils Seen Current Medications Amlodipine Besylate (Norvasc) 10 mg PO DAILY [facility] Last Admin: 02/17/18 10:02 Dose: 10 mg Atenolol (Tenormin (Beta Mariela)) 25 mg PO BID [facility] Last Admin: 02/17/18 10:02 Dose: 25 mg Dicyclomine HCl (Bentyl) 20 mg PO Q6H PRN PRN PRN Reason: abdominal discomfort Last Admin: 02/15/18 18:58 Dose: 20 mg [facility] ([facility]) [facility] Last Admin: 02/17/18 08:51 Dose: 1 mg Heparin Sodium (Porcine) (Heparin Na) 5,000 unit SC Q8 [facility] Last Admin: 02/17/18 05:31 Dose: 5,000 unit Hydroxyzine Pamoate (Vistaril Pamoate Capsule) 50 mg PO Q6H PRN PRN PRN Reason: Mild Anxiety (score 1/3) Last Admin: 02/17/18 08:57 Dose: 50 mg Levetiracetam (Keppra Tablet) 500 mg PO BID [facility] Last Admin: 02/17/18 10:02 Dose: 500 mg Magnesium Hydroxide (Milk Of Magnesia) 30 ml PO DAILY PRN PRN PRN Reason: Constipation Methocarbamol (Methocarbamol) 750 mg PO Q6H PRN PRN PRN Reason: Muscle Aches Last Admin: 02/17/18 08:57 Dose: 750 mg Multivitamins (Multivitamin) [facility] Last Admin: 02/17/18 08:51 Dose: 1 tablet Nicotine (Nicoderm Cq (Pbkc)) 21 mg TRANSDERM. DAILY [facility] Last Admin: 02/17/18 10:02 Dose: 21 mg Quetiapine Fumarate (Seroquel) 100 mg PO QHS [facility] Last Admin: 02/16/18 21:51 Dose: 100 mg Sodium Chloride () 5 - 15 ml IV UD PRN PRN Reason: SALINE FLUSH Last Admin: 02/16/18 21:54 Dose: 10 ml Thiamine HCl (Vitamin B1) 100 mg PO DAILYCM [facility] Last Admin: 02/17/18 08:51 Dose: 100 mg Medical Necessity - Tobacco Use Smoking Status: Current every day smoker Tobacco Use: Cigarettes Assessment/Plan All Active Problems Isopropyl alcohol poisoning (Acute) Suicide attempt (Acute) OSMANI (acute kidney injury) (Acute) Alcohol withdrawal (Acute) 1. OSMANI: 2/2 isopropyl alcohol + dehydration US negative FENA 1.82% improving HLIV 2. Isopropyl alcohol ingestion IVF, supportive mgmt acetone level negative Admission Osmolar gap 18 (slightly elevated [normal is less than or equal to 10]) supportive mgmt 3. Alcohol withdrawal stable, off benzodiazepines on MVI 4. Polysubstance intake monitor 5. Suicide attempt needs sitter Evaluated by crisis on the . Currently his case is going to probate court as his prior pink slipped had . Did not involve crisis until patient was deemed medically stable, which was yesterday. However given the length of his hospitalization apparently the pink slip . And since it apparently is going to probate. Patient kept saying that the suicide attempt was alleged, though did not out right refute it. Patient was also very concerned about his being evicted and what we are going to do about that. Told them, as I told him yesterday we will have case management further look into that but at home I could not provide further information beyond that extended no what could if anything could be done. Patient was asking for lubricating machine tender. I told him that he is not been convicted of any crime. But he is being held here because he had current suicide attempt with drinking rubbing alcohol and ingesting numerous medications. He states that he has no money to pay for lubricating machine tender told him that he is more than welcome to call on. He inquired about the hospital content assistant and if they could see him I told him I will touch base with case management to see what could be done. 6. DVT proph: LMWH. 7. Disposition: when medically stable, consult Crisis for evaluation for inpatient psychiatric unit. Informed SW about the patient's concerns about his court date and potential eviction. Greater than 35 minutes of which greater than 50% of time was discussing with patient at bedside about his current situation, suicide attempt and is reassurance that he can contact legal for further assistance. See above for further details. The above was discussed in the presence of his girlfriend and power of finance attorney. This is done so with the patient's permission. Code Visit Inpatient E&M: 50586 Subs Hosp L3
--- NOTE | 2018-02-17 13:45 | PN_ITS ---
Patient Problems: Active and Suspected Problems Isopropyl alcohol poisoning (Acute) Suicide attempt (Acute) OSMANI (acute kidney injury) (Acute) Subjective: Patient inquiring why he is unable to be discharged and I his case is going to prove a court. Requesting a junior linux administrator stating that he is being here against his will. Stating that the suicide attempt was alleged. Vitals/I&O's: Vital Signs Temp Pulse Resp BP Pulse Ox 37.0 C 60 14 133/82 H 100 02/17/18 05:29 02/17/18 05:29 02/17/18 05:29 02/17/18 05:29 02/17/18 05:29 Oxygen Flow Rate (L/min) 2 Oxygen Delivery Method Room Air Weight: 96.9 kg Body Mass Index (BMI) 30.2 Finger Stick Blood Glucose 98 Intake and Output for Last 24 Hours 02/15/18 02/16/18 02/17/18 23:59 23:59 23:59 Intake Total 3012 / 3012 3861 / 3861 1120 / 1120 Balance 3012 / 3012 3861 / 3861 1120 / 1120 General: Alert, Cooperative, No apparent distress HEENT: Atraumatic, Normocephalic Psych/Mental Status: Agitated, Flat Affect Laboratory Results 02/13/18 07:00: Urine Creatinine 0.63, Ur Arsenic/Creat Ratio TNP, Inorganic Arsenic , Urine Arsenic , Ur Arsenic 24 Hour TNP, Urine Lead , Urine Lead 24 Hour TNP, U Lead/Creatinine Ratio TNP, Urine Mercury , Urine Mercury 24 Hour TNP, Ur Mercury/Creat Ratio TNP 02/13/18 10:05: Eos Smear Total Cells No Eosinophils Seen Current Medications Amlodipine Besylate (Norvasc) 10 mg PO DAILY [facility] Last Admin: 02/17/18 10:02 Dose: 10 mg Atenolol (Tenormin (Beta Mariela)) 25 mg PO BID [facility] Last Admin: 02/17/18 10:02 Dose: 25 mg Dicyclomine HCl (Bentyl) 20 mg PO Q6H PRN PRN PRN Reason: abdominal discomfort Last Admin: 02/15/18 18:58 Dose: 20 mg [facility] ([facility]) [facility] Last Admin: 02/17/18 08:51 Dose: 1 mg Heparin Sodium (Porcine) (Heparin Na) 5,000 unit SC Q8 [facility] Last Admin: 02/17/18 05:31 Dose: 5,000 unit Hydroxyzine Pamoate (Vistaril Pamoate Capsule) 50 mg PO Q6H PRN PRN PRN Reason: Mild Anxiety (score 1/3) Last Admin: 02/17/18 08:57 Dose: 50 mg Levetiracetam (Keppra Tablet) 500 mg PO BID [facility] Last Admin: 02/17/18 10:02 Dose: 500 mg Magnesium Hydroxide (Milk Of Magnesia) 30 ml PO DAILY PRN PRN PRN Reason: Constipation Methocarbamol (Methocarbamol) 750 mg PO Q6H PRN PRN PRN Reason: Muscle Aches Last Admin: 02/17/18 08:57 Dose: 750 mg Multivitamins (Multivitamin) [facility] Last Admin: 02/17/18 08:51 Dose: 1 tablet Nicotine (Nicoderm Cq (Pbkc)) 21 mg TRANSDERM. DAILY [facility] Last Admin: 02/17/18 10:02 Dose: 21 mg Quetiapine Fumarate (Seroquel) 100 mg PO QHS [facility] Last Admin: 02/16/18 21:51 Dose: 100 mg Sodium Chloride () 5 - 15 ml IV UD PRN PRN Reason: SALINE FLUSH Last Admin: 02/16/18 21:54 Dose: 10 ml Thiamine HCl (Vitamin B1) 100 mg PO DAILYCM [facility] Last Admin: 02/17/18 08:51 Dose: 100 mg Medical Necessity - Tobacco Use Smoking Status: Current every day smoker Tobacco Use: Cigarettes Assessment/Plan All Active Problems Isopropyl alcohol poisoning (Acute) Suicide attempt (Acute) OSMANI (acute kidney injury) (Acute) Alcohol withdrawal (Acute) 1. OSMANI: * 2/2 isopropyl alcohol + dehydration * US negative * FENA 1.82% * improving * HLIV 2. Isopropyl alcohol ingestion * IVF, supportive mgmt * acetone level negative * Admission Osmolar gap 18 (slightly elevated [normal is less than or equal to 10]) * supportive mgmt 3. Alcohol withdrawal * stable, off benzodiazepines * on MVI 4. Polysubstance intake * monitor 5. Suicide attempt * needs sitter * Evaluated by crisis on the . Currently his case is going to probate court as his prior pink slipped had . Did not involve crisis until patient was deemed medically stable, which was yesterday. However given the length of his hospitalization apparently the pink slip . And since it apparently is going to probate. Patient kept saying that the suicide attempt was alleged, though did not out right refute it. Patient was also very concerned about his being evicted and what we are going to do about that. Told them, as I told him yesterday we will have case management further look into that but at home I could not provide further information beyond that extended no what could if anything could be done. Patient was asking for junior linux administrator. I told him that he is not been convicted of any crime. But he is being held here because he had current suicide attempt with drinking rubbing alcohol and ingesting numerous medications. He states that he has no money to pay for junior linux administrator told him that he is more than welcome to call on. He inquired about the hospital inspector plating and if they could see him I told him I will touch base with case management to see what could be done. 6. DVT proph: LMWH. 7. Disposition: when medically stable, consult Crisis for evaluation for inpatient psychiatric unit. Informed SW about the patient's concerns about his court date and potential eviction. Greater than 35 minutes of which greater than 50% of time was discussing with patient at bedside about his current situation, suicide attempt and is reassurance that he can contact legal for further assistance. See above for further details. The above was discussed in the presence of his girlfriend and power of internetworking technician. This is done so with the patient's permission. Code Visit Inpatient E&M: 13922 Subs Hosp L3
[2018-02-17 13:57] VITALS: BP 135/88; PULSE 71; RESP 18; TEMP 36.5; O2SAT 97
--- NOTE | 2018-02-17 17:30 | CASEMGMT ---
Social Work Unit - MS3 Handoff from [facility] for MS3, regarding patient's aftercare planning needs and attempts to work with crisis from [facility] ([facility]) for mental health placement for this patient. Per Tiana, patient is also requesting to talk to a social sciences lecturer. Collaboration with Jacqueline, interim director of crisis services at [facility]. Jacqueline reports has been in court most of the day today working on a probate order for psychiatric hospitalization to [facility] for this patient. Jacqueline to unit today to gather more information as requested by the air crew supervisor. Discussed with Jacqueline, that should the air crew supervisor ivana order for commitment to another hospital, [facility] will need an order to detain patient until a bed can be facilitated at the [facility]. Jacqueline back to unit with order to detain patient and to transfer jurisdiction to [facility] probate court once patient arrives to [facility]. [facility] to transport. This press writer, along with Jacqueline, met with patient in room. Also present with patient's permission is the patient's girlfriend; [facility] sitter also present. Jacqueline explained to patient the air crew supervisor's decision and why. Patient accepted information without issue, but did voice unhappiness and worry about eviction and what will happen to patient's belongings. Patient states to have about 30,000 worth of electronic equipment of at his house. Explored with patient if has friends, or even patient's girlfriend in the room, who can get patient's things and keep safe. Patient reports girlfriend can do some things, but just doesn't know what to get; essentially no one else to help patient. quarry worker agreed to call patient's landlord and update to patient's situation, and ask if belongings can be held until patient is released from the hospital. Patient stated this would be acceptable to patient. Release to landlord signed and placed on chart. Reinforced to patient that this press writer cannot make any guarantees whether the landlord will agree to save patient's things but this press writer will try to advocate. Patient thanked this press writer. Patient then asking about rights if disagrees with hospitalization and wants to be released. let patient know that can talk to a social sciences lecturer at the [facility] and that patient's case will likely go in front of [facility] courts once a psychiatrist is able to evaluate the patient. Called patient's landlord at [phone] and left message requesting a call back. Per Jacqueline from [facility], [facility] does not have a bed but [facility] will continue to work with [facility] on this matter. Copy of court orders on the chart. Plan: Patient is ordered to be detained at [facility] per [facility] probate court, with ultimate destination to [facility]. Should patient elope the police or paint coating machine operator will need to be called (patient has been informed by this press writer that police will be called if tries to leave. Patient reports has no intention of trying to leave). -CRISTIAN Izquierdo, IT DIRECTOR
--- NOTE | 2018-02-17 18:25 | NURSING ---
Call from Jacqueline, public health worker. [place] requested EKG to be faxed for review. EKG sent at this time.
[2018-02-17 18:37] VITALS: BP 135/78; PULSE 73; RESP 16; TEMP 36.6; O2SAT 97
[2018-02-17 21:29] VITALS: BP 131/91; PULSE 79; RESP 14; TEMP 36.7; O2SAT 96
[2018-02-17] MEDS: QUEtiapine 100 MG Tablet PO (21:34)
[2018-02-18 03:12] VITALS: BP 137/91; PULSE 65; RESP 14; TEMP 36.4; O2SAT 96
[2018-02-18] MEDS: Heparin Injection (Vial) 5,000 UNIT/ML VIAL 5000 UNIT SC (06:23)
[2018-02-18] MEDS: Thiamine Hydrochloride 100 MG Tablet PO (07:41)
[2018-02-18] MEDS: Multivitamins,Therapeutic Tablet 1 TABLET PO (07:41)
[2018-02-18] MEDS: Folic Acid 1 MG Tablet PO (07:41)
[2018-02-18] MEDS: levETIRAcetam 500 MG Tablet PO (10:15)
[2018-02-18] MEDS: Atenolol 25 MG Tablet PO (10:16)
[2018-02-18] MEDS: amLODIPine 10 MG Tablet PO (10:17)
--- NOTE | 2018-02-18 12:43 | PCM.PN.HOSP ---
Patient Problems: Active and Suspected Problems Isopropyl alcohol poisoning (Acute) Suicide attempt (Acute) OSMANI (acute kidney injury) (Acute) Alcohol withdrawal (Acute) Subjective: No new events. No complaints. Vitals/I&O's: Vital Signs Temp Pulse Resp BP Pulse Ox 36.4 C L 65 14 137/91 H 96 02/18/18 03:12 02/18/18 03:12 02/18/18 03:12 02/18/18 03:12 02/18/18 03:12 Oxygen Flow Rate (L/min) 2 Oxygen Delivery Method Room Air Weight: 96.9 kg Body Mass Index (BMI) 30.2 Finger Stick Blood Glucose 98 Intake and Output for Last 24 Hours 02/16/18 02/17/18 02/18/18 23:59 23:59 23:59 Intake Total 3861 / 3861 2470 / 2470 900 / 900 Balance 3861 / 3861 2470 / 2470 900 / 900 General: Alert, Cooperative, No apparent distress HEENT: Atraumatic, Normocephalic Psych/Mental Status: Normal Affect, Appropriate Current Medications Amlodipine Besylate (Norvasc) 10 mg PO DAILY [facility] Last Admin: 02/18/18 10:17 Dose: 10 mg Atenolol (Tenormin (Beta Mariela)) 25 mg PO BID [facility] Last Admin: 02/18/18 10:16 Dose: 25 mg Dicyclomine HCl (Bentyl) 20 mg PO Q6H PRN PRN PRN Reason: abdominal discomfort Last Admin: 02/15/18 18:58 Dose: 20 mg [facility]olic [facility] ([facility]) [facility] Last Admin: 02/18/18 07:41 Dose: 1 mg Heparin Sodium (Porcine) (Heparin Na) 5,000 unit SC Q8 [facility] Last Admin: 02/18/18 06:23 Dose: 5,000 unit Hydroxyzine Pamoate (Vistaril Pamoate Capsule) 50 mg PO Q6H PRN PRN PRN Reason: Mild Anxiety (score 1/3) Last Admin: 02/17/18 08:57 Dose: 50 mg Levetiracetam (Keppra Tablet) 500 mg PO BID [facility] Last Admin: 02/18/18 10:15 Dose: 500 mg Magnesium Hydroxide (Milk Of Magnesia) 30 ml PO DAILY PRN PRN PRN Reason: Constipation Methocarbamol (Methocarbamol) 750 mg PO Q6H PRN PRN PRN Reason: Muscle Aches Last Admin: 02/17/18 08:57 Dose: 750 mg Multivitamins (Multivitamin) [facility] Last Admin: 02/18/18 07:41 Dose: 1 tablet Nicotine (Nicoderm Cq (Pbkc)) 21 mg TRANSDERM. DAILY [facility] Last Admin: 02/18/18 10:16 Dose: 21 mg Quetiapine Fumarate (Seroquel) 100 mg PO QHS [facility] Last Admin: 02/17/18 21:34 Dose: 100 mg Sodium Chloride () 5 - 15 ml IV UD PRN PRN Reason: SALINE FLUSH Last Admin: 02/16/18 21:54 Dose: 10 ml Thiamine HCl (Vitamin B1) [facility] Last Admin: 02/18/18 07:41 Dose: 100 mg Medical Necessity - Tobacco Use Smoking Status: Current every day smoker Tobacco Use: Cigarettes Assessment/Plan All Active Problems Isopropyl alcohol poisoning (Acute) Suicide attempt (Acute) OSMANI (acute kidney injury) (Acute) Alcohol withdrawal (Acute) 1. OSMANI: 2/2 isopropyl alcohol + dehydration US negative FENA 1.82% improving HLIV 2. Isopropyl alcohol ingestion IVF, supportive mgmt acetone level negative Admission Osmolar gap 18 (slightly elevated [normal is less than or equal to 10]) supportive mgmt 3. Alcohol withdrawal stable, off benzodiazepines on MVI 4. Polysubstance intake monitor 5. Suicide attempt needs sitter Evaluated by crisis on the . Currently his case is going to probate court as his prior pink slipped had . Did not involve crisis until patient was deemed medically stable, which was yesterday. However given the length of his hospitalization apparently the pink slip . And since it apparently is going to probate. Patient kept saying that the suicide attempt was alleged, though did not out right refute it. Patient was also very concerned about his being evicted and what we are going to do about that. Told them, as I told him yesterday we will have case management further look into that but at home I could not provide further information beyond that extended no what could if anything could be done. Patient was asking for pediatrics teacher. I told him that he is not been convicted of any crime. But he is being held here because he had current suicide attempt with drinking rubbing alcohol and ingesting numerous medications. He states that he has no money to pay for pediatrics teacher told him that he is more than welcome to call on. He inquired about the hospital educational technology coordinator and if they could see him I told him I will touch base with case management to see what could be done. to [place] today. Code Visit Inpatient E&M: 04889 Disch Hosp
--- NOTE | 2018-02-18 13:53 | NURSING ---
received call from [facility] that they are ready for pt to come. spoke with [facility] Office and they will send Officers for transport.
--- NOTE | 2018-02-18 14:30 | CASEMGMT ---
Social Work Unit - MS3 Summary: No return call from patient's landlord. Left another message at [phone] for Lucía asking for a return call. Received notice from lead architect Danielle that [facility] has a bed, and the bird keeper has been called for transport. Nursing is calling report to [facility]. Met with patient in room, also present [facility] Sitter and patient's girlfriend Jamilah. Updated patient that no response from the landlord but if landlord calls back next week will update to patient's predicament. Encouraged patient to talk to high school social science teacher at [facility] to assist [facility], since [facility] is where patient will be at and [facility] staff will know more how long patient will be hospitalized. Patient making statements that relying on this commercial loan underwriter to get things done since patient doesn't know how long will be at [facility]. Let patient know that the [facility] will have a better idea as to how long patient will be in the hospital and that there are social workers at the [facility] to continue to assist as needed and/or indicated. Patient making complaints that being forced to [facility] a [facility] than [facility]. Informed and educated patient that no one is forcing patient to go to counseling at [facility], that once released from [facility] patient can go anywhere he chooses for outpatient therapy, but for now it is [facility] that has a liaison at [facility] to assist with transitioning [facility] residents back to the community. Observations/Assessment: Patient attempting to manipulate, splitting behaviors, as evidenced by making passive aggressive comments about being forced to go to counseling at the counseling center when to this commercial loan underwriter's knowledge no one has said such a thing, as well as patient making comments about just getting the patient loaded up with meds at the [facility] and sending patient to the streets. Patient voicing negativity about local advocacy groups such as [employer], and that can't rely on this agency for help with needs. Patient also seeming okay to leave his housing issues in others' hands at this point, as evidenced by telling this commercial loan underwriter that relying on this commercial loan underwriter to manage things with the landlord so that patient's things don't get lost. Patient does not feel his friends are a viable option to help out with patient's things while patient is hospitalized. This commercial loan underwriter let patient know that hospital staff and [facility] liaison would likely be looking at resources available for this patient when patient is ready to leave the [facility], that no one has said at this point that the plans for patient will be to discharge to the streets; talked to patient about looking at what resources may be available to patient. Also let patient know that this commercial loan underwriter will give landlord the information patient about being in the hospital, if the landlord calls back, but that patient will have access to a high school social science teacher at [facility] to assist with advocacy issues and making calls to [facility] if patient so needs. Reinforced importance of working with health care team. Plan: discharge to [facility] as per court order from the [facility] probate court; [facility] No other services requested or indicated. -CRISTIAN Izquierdo, INSULATION PACKER
[2018-02-18 14:33] VITALS: BP 115/74; PULSE 80; RESP 18; TEMP 36.4; O2SAT 98
== END 2018-02-18 14:22 | DRG 918 ==
LOC: ED 03:20 → ICU 03:35 → MS3 14:00
PROVIDERS: Internal Medicine Critical Care Medicine; Admitting Provider Student in an Organized Health Care Education/Training Program; Emergency Provider Emergency Medicine
DX: T51.2X2A Toxic effect of 2-Propanol, intentional self-harm, initial encounter (principal); N17.9 Acute kidney failure, unspecified; F10.239 Alcohol dependence with withdrawal, unspecified; T50.992A Poisoning by other drugs, medicaments and biological substances, intentional self-harm, initial encounter; E87.6 Hypokalemia; I10 Essential (primary) hypertension; E11.9 Type 2 diabetes mellitus without complications; F31.9 Bipolar disorder, unspecified; Z87.442 Personal history of urinary calculi; E86.0 Dehydration; F17.210 Nicotine dependence, cigarettes, uncomplicated; Z79.899 Other long term (current) drug therapy; R00.0 Tachycardia, unspecified; G40.909 Epilepsy, unspecified, not intractable, without status epilepticus
CPT/HCPCS: 36415; 76770; 80048; 80053; 80307; 80320; 80329; 81001; 82009; 82175; 82570; 83655; 83735; 83825; 83930; 84100; 84300; 85025; 87205; 93005; 97161; 97165; 97530; 99285; 99406; J7030; J7120; A4216; G0480; J2405

== ENCOUNTER 2018-04-01 19:56 | Emergency (ER) | payer SELFPAY ==
[2018-02-13 04:30] VITALS: BMI 30.2
[2018-04-01 19:58] VITALS: BP 123/85; PULSE 95; RESP 18; TEMP 37; O2SAT 99; BMI 29.0
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
[2018-04-01 21:29] LABS: Absolute Lymphocyte Count 1.75 X10^3/ul (0.83-4.51); Absolute Neutrophil Count 4.3 X10^3/uL (2.0-7.7); Basophil# 0.04 X10^3/uL; Basophil% 0.6 % (0-1); Eosinophil# 0.09 X10^3/uL; Eosinophils% 1.3 % (0-5); Hematocrit 44.8 % (40-54); Hemoglobin 15.5 g/dl (13.0-16.5); Lymphocyte # 1.75 X10^3/ul (4.0); Lymphocyte % 25.6 % (19-41); Mean Corp Hgb Conc 34.6 g/gl (32-36); Mean Corpuscular Hgb 33.2 pg (27.0-32.0); Mean Corpuscular Volume 95.9 fL (80-94); Mean Platelet Vol. 9.1 fl (6.2-12.0); Monocyte# 0.65 X10^3/uL; Monocyte% 9.5 % (0-10); Neutrophil # 4.29 X10^3/uL (2.7-7.7); Neutrophil % 62.9 % (47-70); Platelet Count 111 K/mm3 (150-450); RBC Distribution Width SD 56.3 fl (35.1-43.9); Red Blood Count 4.67 M/mm3 (4.6-6.2); White Blood Count 6.8 K/mm3 (4.4-11.0)
[2018-04-01 21:30] LABS: POSITIVE COUNT NO; POSITIVE DIFFERENTIAL NO; POSITIVE MORPHOLOGY NO
--- NOTE | 2018-04-01 21:30 | ED.RN ---
PT REQUESTS PAIN MEDICATION, DR. DUEÑAS MADE AWARE.
[2018-04-01 21:36] LABS: International Normalized Ratio 0.9; Partial Thromboplast Time 24.2 Seconds (24.1-36.2); Prothrombin Time (Protime)PT. 12.6 SECONDS (11.7-14.9)
[2018-04-01 21:45] LABS: AST(SGOT) 94 U/L (15-37); Alanine Aminotransfer ALT/SGPT 167 U/L (16-61); Albumin, Serum 3.7 g/dL (3.2-5.0); Alkaline Phosphatase 79 U/L (45-117); Anion Gap 13 (5-15); BUN 8 mg/dL (7-18); BUN/Creat Ratio 10.3 RATIO (10-20); Calcium,Total 7.7 mg/dL (8.5-10.1); Chloride 108 mmol/L (98-107); Creatinine, Serum 0.77 mg/dL (0.70-1.30); EST Glomerular Filtration Rate 112 mL/min (>60); Est Glom Filt Rate - Afr Amer 136 mL/min (>60); Globulin 3.8 g/dL (2.2-4.2); Glucose 103 mg/dL (74-106); Potassium 3.2 mmol/L (3.5-5.1); Protein, Total 7.5 g/dL (6.4-8.2); Sodium Level 141 mmol/L (136-145)
[2018-04-01] MEDS: oxyCODONE 5 MG Tablet 10 MG PO (22:36)
[2018-04-01 22:37] VITALS: BP 117/89; PULSE 72; RESP 18; O2SAT 97
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
--- NOTE | 2018-04-01 22:48 | ED.DEP ---
ED Disposition - Plan for ED Patient: Instructions: ED Fx Nasal Conf W X Ray Referrals: Preet Silva MD [STAFF PHYSICIAN] -
== END 2018-04-01 22:50 | disposition home or self-care (01) ==
PROVIDERS: Emergency Provider Emergency Medicine; Family Provider Family Medicine; PCP Family Medicine
DX: S02.2XXA Fracture of nasal bones, initial encounter for closed fracture (principal); S00.31XA Abrasion of nose, initial encounter; S00.81XA Abrasion of other part of head, initial encounter; S60.512A Abrasion of left hand, initial encounter; S60.511A Abrasion of right hand, initial encounter; S30.811A Abrasion of abdominal wall, initial encounter; Y08.02XA Assault by strike by baseball bat, initial encounter; Y93.9 Activity, unspecified; Y92.9 Unspecified place or not applicable; F10.229 Alcohol dependence with intoxication, unspecified; Y90.9 Presence of alcohol in blood, level not specified; E11.9 Type 2 diabetes mellitus without complications; F31.9 Bipolar disorder, unspecified; Z87.442 Personal history of urinary calculi; Z87.448 Personal history of other diseases of urinary system; Z79.4 Long term (current) use of insulin; Z79.899 Other long term (current) drug therapy; Z72.0 Tobacco use
CPT/HCPCS: 70450; 70486; 72125; 80053; 85025; 85610; 85730; 90715; 99285; J7030; A4216

== ENCOUNTER 2018-04-04 01:22 | Emergency (ER) | payer SELFPAY ==
[2018-04-04 01:22] VITALS: BP 152/106; PULSE 107; RESP 16; TEMP 36.6; O2SAT 99; BMI 28.5
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
--- NOTE | 2018-04-04 02:14 | ED.DEP ---
ED Disposition - Plan for ED Patient: Disposition: Home or Assisted Living Instructions: ED Withdrawal Alcohol Referrals: Edison Shannon MD [Primary Care Provider] -
[2018-04-04] MEDS: Ketorolac 60 MG/2 ML Vial IM (02:19)
[2018-04-04 02:42] VITALS: BP 137/99; PULSE 100; RESP 16; O2SAT 98
== END 2018-04-04 02:45 | disposition home or self-care (01) ==
PROVIDERS: Emergency Provider Emergency Medicine; Family Provider Family Medicine; PCP Family Medicine
DX: F10.20 Alcohol dependence, uncomplicated (principal); S02.2XXD Fracture of nasal bones, subsequent encounter for fracture with routine healing; S00.10XD Contusion of unspecified eyelid and periocular area, subsequent encounter; S00.83XD Contusion of other part of head, subsequent encounter; Z72.0 Tobacco use; Y09 Assault by unspecified means
CPT/HCPCS: 96372; 99282

== ENCOUNTER 2018-04-04 07:41 | Inpatient (IN) | payer SELFPAY ==
[2018-04-04] VITALS (14 sets, daily range): BP systolic 125–163; BP diastolic 79–101; PULSE 73–132; RESP 18–22; TEMP 36.6–37; O2SAT 95–99; BMI 28.5; BMI 29.9; BMI 28.4
--- NOTE | 2018-04-04 07:46 | EKG12_ITS ---
Test Reason : CP Blood Pressure : / mmHG Vent. Rate : 129 BPM Atrial Rate : 129 BPM P-R Int : 144 ms QRS Dur : 100 ms QT Int : 308 ms P-R-T Axes : 080 064 068 degrees QTc Int : 451 ms Sinus tachycardia Incomplete right bundle branch block Nonspecific ST and T wave abnormality Abnormal ECG Confirmed by TOBIN MAKI, ROBERT ([id number]), story editor YAZMIN COREY ([id number]) on 04/07/2018 8:18:22 AM Referred By: TREY Confirmed By:ROBERT RUDD MD
--- NOTE | 2018-04-04 07:51 | ED.RN ---
PT STATES SUPPOSED TO BE ON MULTIPLE MEDICATIONS BUT STATES HE CANNOT AFFORD IT
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
[2018-04-04] MEDS: LORazepam 2 MG/ML Syringe IV ×4 (08:13→20:27)
[2018-04-04] MEDS: 0.9% Normal Saline 1,000 ML 1000 ML IV (08:13)
[2018-04-04 08:30] LABS: Absolute Lymphocyte Count 2.31 X10^3/ul (0.83-4.51); Absolute Neutrophil Count 2.9 X10^3/uL (2.0-7.7); Basophil# 0.04 X10^3/uL; Basophil% 0.6 % (0-1); Eosinophil# 0.04 X10^3/uL; Eosinophils% 0.6 % (0-5); Hematocrit 42.7 % (40-54); Hemoglobin 14.9 g/dl (13.0-16.5); Lymphocyte # 2.31 X10^3/ul (4.0); Mean Corp Hgb Conc 34.9 g/gl (32-36); Mean Corpuscular Hgb 32.6 pg (27.0-32.0); Mean Corpuscular Volume 93.4 fL (80-94); Mean Platelet Vol. 10.3 fl (6.2-12.0); Monocyte# 0.97 X10^3/uL; Monocyte% 15.5 % (0-10); Neutrophil # 2.87 X10^3/uL (2.7-7.7); Neutrophil % 46.1 % (47-70); Platelet Count 155 K/mm3 (150-450); RBC Distribution Width SD 54.8 fl (35.1-43.9); Red Blood Count 4.57 M/mm3 (4.6-6.2); White Blood Count 6.2 K/mm3 (4.4-11.0)
[2018-04-04 08:35] LABS: Anion Gap 13 (5-15); BUN 4 mg/dL (7-18); BUN/Creat Ratio 4.6 RATIO (10-20); Calcium,Total 8.7 mg/dL (8.5-10.1); Chloride 109 mmol/L (98-107); Creatinine, Serum 0.87 mg/dL (0.70-1.30); EST Glomerular Filtration Rate 98 mL/min (>60); Est Glom Filt Rate - Afr Amer 119 mL/min (>60); Estimated Creatinine Clearance 100.45 ml/min; Glucose 100 mg/dL (74-106); Potassium 3.3 mmol/L (3.5-5.1); Sodium Level 142 mmol/L (136-145)
[2018-04-04 08:41] LABS: Differential Indicated SCAN CRITERIA MET; International Normalized Ratio 0.9; POSITIVE COUNT NO; POSITIVE DIFFERENTIAL NO; POSITIVE MORPHOLOGY YES; Prothrombin Time (Protime)PT. 12.5 SECONDS (11.7-14.9)
[2018-04-04 08:53] LABS: Reactive Lymphocyte RARE
--- NOTE | 2018-04-04 09:16 | NURSING ---
DR SIMONA YANG
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
--- NOTE | 2018-04-04 09:31 | NURSING ---
PCU STEP DOWN KITTOE ALCOHOL WITHDRAWAL, SINUS TACHYCARDIA
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
--- NOTE | 2018-04-04 10:40 | NURSING ---
206, MED SURG PER DR JARVIS
[2018-04-04] MEDS: Enoxaparin 40 MG/0.4 ML Syringe SC (11:49)
[2018-04-04] MEDS: hydrOXYzine PAM 25 MG Capsule 50 MG PO ×2 (11:50→19:11)
[2018-04-04] MEDS: chlordiazePOXIDE 25 MG Capsule 50 MG PO ×2 (11:50→17:36)
[2018-04-04 11:55] LABS: International Normalized Ratio 0.9; Prothrombin Time (Protime)PT. 12.3 SECONDS (11.7-14.9)
--- NOTE | 2018-04-04 12:11 | NURSING ---
BS 65 at this time. Lunch has been ordered, orange juice given.
[2018-04-04] MEDS: Ibuprofen 600 MG Tablet PO ×2 (12:14→20:27)
[2018-04-04] MEDS: Famotidine 20 MG Tablet PO ×2 (12:14→21:56)
[2018-04-04] MEDS: Methocarbamol 750 MG Tablet PO ×2 (12:15→20:27)
--- NOTE | 2018-04-04 12:25 | NURSING ---
Pt eating lunch at this time.
[2018-04-04 12:31] LABS: Bedside Glucose 65 mg/dL (70-110)
[2018-04-04] MEDS: 0.9% NaCl Peripheral Flush Adult/Peds IV ×2 (13:29→20:28)
[2018-04-04] MEDS: Ondansetron 4 MG/2 ML Vial IV (13:29)
[2018-04-04 13:37] LABS: Bedside Glucose 132 mg/dL (70-110)
--- NOTE | 2018-04-04 14:35 | NURSING ---
Lab called at this time, states they do not have urine in lab for pt for UA. Will collect when able.
[2018-04-04] MEDS: Acetaminophen 500 MG Tablet PO (15:16)
[2018-04-04] MEDS: Atenolol 25 MG Tablet PO ×2 (16:25→21:56)
[2018-04-04 16:31] LABS: Bedside Glucose 102 mg/dL (70-110)
[2018-04-04 16:38] LABS: Squamous Epithelial Cells - UA 0 SEEN /hpf (0-5)
[2018-04-04 16:51] LABS: Color, Urine Amber (Yellow); Glucose, Dipstick Normal (Normal); Ketone-Dipstick 5 mg/dl (Negative); Leukocyte Esterase-Dipstick 25 /ul (Negative); Nitrite-Dipstick Positive (Negative); Occult Blood-Urine 25 /ul (Negative); Protein-Dipstick 30 mg/dl (Negative); Urine Clarity Sl. Cloudy (Clear); Urine Urobilinogen 4 mg/dl (Normal)
[2018-04-04 16:52] LABS: Urine Bilirubin Dipstick 1 mg/dL (Negative)
[2018-04-04 17:00] LABS: Bacteria RARE /hpf (None Seen); Calcium Oxalate Crystals Ur 1+ /hpf (<or=2+); Mucous, Urine 2+ /hpf (<or=2+); Red Blood Cells-Urine 0-5 SEEN /hpf (0-5); White Blood Cells 0-5 SEEN /hpf (0-5)
[2018-04-04] MEDS: Folic Acid 1 MG Tablet PO (17:36)
[2018-04-04] MEDS: Glucerna Shake 120 ML LIQUID PO ×2 (17:36→21:56)
[2018-04-04] MEDS: amLODIPine 10 MG Tablet PO (18:01)
[2018-04-04] MEDS: Ondansetron ODT 4 MG Tablet PO (20:27)
[2018-04-04] MEDS: levETIRAcetam 500 MG Tablet PO (21:56)
[2018-04-04] MEDS: traZODone 50 MG Tablet PO (21:56)
[2018-04-05] VITALS (11 sets, daily range): BP systolic 114–146; BP diastolic 62–93; PULSE 68–92; RESP 16–20; TEMP 36.6–37; O2SAT 92–100
[2018-04-05] MEDS: chlordiazePOXIDE 25 MG Capsule 50 MG PO ×4 (00:01→22:11)
[2018-04-05 00:11] LABS: Bedside Glucose 96 mg/dL (70-110)
[2018-04-05] MEDS: 0.9% NaCl Peripheral Flush Adult/Peds IV ×3 (01:16→10:41)
[2018-04-05] MEDS: LORazepam 2 MG/ML Syringe IV ×7 (01:16→18:45)
[2018-04-05] MEDS: hydrOXYzine PAM 25 MG Capsule 50 MG PO ×3 (01:16→22:11)
[2018-04-05 05:58] LABS: Hematocrit 34.5 % (40-54); Hemoglobin 11.8 g/dl (13.0-16.5); Mean Corp Hgb Conc 34.2 g/gl (32-36); Mean Corpuscular Hgb 33.2 pg (27.0-32.0); Mean Corpuscular Volume 97.2 fL (80-94); Mean Platelet Vol. 10.2 fl (6.2-12.0); Platelet Count 95 K/mm3 (150-450); RBC Distribution Width CV 15.6 % (11.6-14.6); RBC Distribution Width SD 53.5 fl (35.1-43.9); Red Blood Count 3.55 M/mm3 (4.6-6.2); White Blood Count 4.1 K/mm3 (4.4-11.0)
[2018-04-05 06:23] LABS: Anion Gap 9 (5-15); BUN 9 mg/dL (7-18); BUN/Creat Ratio 12.1 RATIO (10-20); Calcium,Total 7.8 mg/dL (8.5-10.1); Chloride 113 mmol/L (98-107); Creatinine, Serum 0.74 mg/dL (0.70-1.30); EST Glomerular Filtration Rate 118 mL/min (>60); Est Glom Filt Rate - Afr Amer 143 mL/min (>60); Glucose 85 mg/dL (74-106); Potassium 3.6 mmol/L (3.5-5.1); Sodium Level 145 mmol/L (136-145)
[2018-04-05 06:27] LABS: Scan Indicated on CBC? Y/N NO
[2018-04-05 06:56] LABS: Bedside Glucose 83 mg/dL (70-110)
[2018-04-05] MEDS: Atenolol 25 MG Tablet PO ×2 (08:03→22:11)
[2018-04-05] MEDS: amLODIPine 10 MG Tablet PO (08:03)
[2018-04-05] MEDS: Thiamine Hydrochloride 100 MG Tablet PO (08:03)
[2018-04-05] MEDS: levETIRAcetam 500 MG Tablet PO ×2 (08:04→22:11)
[2018-04-05] MEDS: Famotidine 20 MG Tablet PO ×2 (08:04→22:11)
[2018-04-05] MEDS: Folic Acid 1 MG Tablet PO (08:04)
[2018-04-05] MEDS: Multivitamins,Therapeutic Tablet 1 TABLET PO (08:04)
[2018-04-05] MEDS: Enoxaparin 40 MG/0.4 ML Syringe SC (08:06)
[2018-04-05] MEDS: Methocarbamol 750 MG Tablet PO (08:08)
[2018-04-05] MEDS: Glucerna Shake 120 ML LIQUID PO ×4 (08:12→22:11)
--- NOTE | 2018-04-05 10:31 | CASEMGMT ---
Social Work Note SW is familiar with pt from previous admissions to [facility]. SW discussed case with Aden Holloway, administrator social welfare. Per Aden Holloway, Kiersten FOSTER had mentioned that [facility] may have state funds that are available for individuals to use for inpatient rehab when individuals don't have insurance. Aden Holloway called [facility] to get more information. SW waiting to receive update from Aden Holloway. SW to continue to follow along to assist with discharge planning. Tiana Puente NETWORK ASSOCIATE, WEDDING DECORATOR
--- NOTE | 2018-04-05 11:19 | EKG12_ITS ---
Test Reason : AM EKG Blood Pressure : / mmHG Vent. Rate : 071 BPM Atrial Rate : 071 BPM P-R Int : 182 ms QRS Dur : 104 ms QT Int : 434 ms P-R-T Axes : 042 019 026 degrees QTc Int : 471 ms Normal sinus rhythm Incomplete right bundle branch block Confirmed by DURGA MAKI, RHONDA ([id number]), legal editor YAZMIN COREY ([id number] on 04/12/2018 10:27:39 AM Referred By: SIMONA Confirmed By:RHONDA CALIXTO MD
--- NOTE | 2018-04-05 11:27 | PCM.PN.HOSP ---
Subjective: Patient is a 52-year-old gentleman with a history of chronic alcohol dependence with multiple admissions for alcohol withdrawal presented with significant tremors, event of acute alcohol withdrawal was made admitted to regular nursing floor for medical stabilization Patient seen still remains significantly tremulous and jittery with Patient requiring frequent IV Ativan Objective: GENERAL:tremulous at rest HEENT: Periorbital bruising involving the right orbit EYES; subconjunctival hemorrhage NECK; supple, normal thyroid, no distended JVD. RESPIRATORY: Diminished to auscultation bilaterally, CARDIOVASCULAR: Regular S1 S2, tachycardic GI: soft, non-tender, normoactive bowel sounds, : No Renal angle tenderness; EXTREMITIES: No edema, no clubbing, no cyanosis. MUSCULOSKELETAL: No Joint Tenderness; no muscle waisting NEURO: Lethargic but arousable. SKIN: No Rash PSYCH; flat affect Vitals/I&O's: Vital Signs Temp Pulse Resp BP Pulse Ox 98.1 F 87 20 H 114/62 99 04/05/18 10:31 04/05/18 10:31 04/05/18 10:31 04/05/18 10:31 04/05/18 10:31 Oxygen Delivery Method Room Air Weight: 87.453 kg Body Mass Index (BMI) 28.4 Finger Stick Blood Glucose 98 Intake and Output for Last 24 Hours 04/03/18 04/04/18 04/05/18 23:59 23:59 23:59 Intake Total 2385 / 2385 2780 / 2780 Balance 2385 / 2385 2780 / 2780 Laboratory Results 04/04/18 11:38: PT 12.3, INR 0.9 04/04/18 12:11: POC Glucose 65 L 04/04/18 13:27: POC Glucose 132 H 04/04/18 16:19: POC Glucose 102 04/04/18 16:20: Urine Color Cecile, Urine Clarity Sl. Cloudy, Urine pH 5.0, Ur Specific [place] 1.020, Urine Protein 30 H, Urine Glucose (UA) Normal, Urine Ketones 5 H, Urine Occult Blood 25 H, Urine Nitrite Positive H, Urine Bilirubin 1 H, Urine Urobilinogen 4 H, Ur Leukocyte Esterase 25 H, Urine RBC 0-5 SEEN, Urine WBC 0-5 SEEN, Ur Squamous Epith Cells 0 SEEN, Calcium Oxalate Crystal 1+, Urine Bacteria RARE, Urine Mucus 2+ 02/12/19 21:53: POC Glucose 96 04/05/18 05:35: WBC 4.1 L, RBC 3.55 L, Hgb 11.8 L, Hct 34.5 L, MCV 97.2 H, MCH 33.2 H, MCHC 34.2, RDW 15.6 H, RDW Differential 53.5 H, Plt Count 95 L, MPV 10.2 04/05/18 05:35: Sodium 145, Potassium 3.6, Chloride 113 H, Carbon Dioxide 23.0, Anion Gap 9, BUN 9, Creatinine 0.74, Estim Creat Clear Calc 118.10, Est GFR (MDRD) Af Amer 143, Est GFR (MDRD) Non-Af 118, BUN/Creatinine Ratio 12.1, Glucose 85, Calcium 7.8 L 04/05/18 06:48: POC Glucose 83 Current Medications Acetaminophen (Tylenol) 500 mg PO Q4H PRN PRN PRN Reason: Temp > 100.4 F Last Admin: 04/04/18 15:16 Dose: 500 mg Al Hydroxide/Mg Hydroxide (Mylanta Ii) 30 ml PO Q6H PRN PRN PRN Reason: Gastric Burning Amlodipine Besylate (Norvasc) 10 mg PO DAILY [facility] Last Admin: 04/05/18 08:03 Dose: 10 mg Atenolol (Tenormin (Beta Mariela)) 25 mg PO BID [facility] Last Admin: 04/05/18 08:03 Dose: 25 mg Bisacodyl (Dulcolax) 5 mg PO DAILY PRN PRN PRN Reason: Constipation Chlordiazepoxide (Librium) 50 mg PO Q8H [facility]; Taper Stop: 04/07/18 13:59 Last Admin: 04/05/18 05:30 Dose: 50 mg Dextrose (D50w Syringe) 0 gm IV X1 PRN; Protocol PRN Reason: Hypoglycemia Dicyclomine HCl (Bentyl) 20 mg PO Q6H PRN PRN PRN Reason: abdominal discomfort Enoxaparin Sodium (Lovenox) 40 mg SC DAILY@1000 LIVIER Last Admin: 04/05/18 08:06 Dose: 40 mg Famotidine (Pepcid) 20 mg PO BID [facility] Last Admin: 04/05/18 08:04 Dose: 20 mg Folic Acid (Folic Acid) 1 mg PO DAILYCM [facility] Last Admin: 04/05/18 08:04 Dose: 1 mg Glucagon () 1 mg IM .X1 PRN PRN Reason: Hypoglycemia Hydroxyzine Pamoate (Vistaril Pamoate Capsule) 50 mg PO Q6H PRN PRN PRN Reason: Mild Anxiety (score 1/3) Last Admin: 04/05/18 08:08 Dose: 50 mg Potassium Chloride/Sodium Chloride () 1,000 mls @ 150 mls/hr IV .Q6H40M [facility] Stop: 04/05/18 14:09 Last Admin: 04/05/18 06:49 Dose: 150 mls/hr Ibuprofen (Motrin) 600 mg PO Q8H PRN PRN PRN Reason: Mild-Moderate Pain (1-5/10) Last Admin: 04/04/18 20:27 Dose: 600 mg Insulin Human Lispro (Humalog Kwikpen (Bkc)) 0 unit SQ [facility]; Protocol Last Admin: 04/05/18 06:48 Dose: Not Given Levetiracetam (Keppra Tablet) 500 mg PO BID [facility] Last Admin: 04/05/18 08:04 Dose: 500 mg Loperamide HCl (Imodium) 2 - 4 mg PO UD PRN PRN Reason: LOOSE STOOLS Lorazepam (Ativan) 2 mg IV X1 PRN PRN Reason: Seizure Lorazepam (Ativan) 2 mg IV Q4H PRN PRN PRN Reason: Alcohol Withdrawal Last Admin: 04/05/18 09:14 Dose: 2 mg Magnesium Hydroxide (Milk Of Magnesia) 30 ml PO DAILY PRN PRN PRN Reason: Constipation Methocarbamol (Methocarbamol) 750 mg PO Q6H PRN PRN PRN Reason: Muscle Aches Last Admin: 04/05/18 08:08 Dose: 750 mg [facility]ivitamins (Multivitamin) [facility] Last Admin: 04/05/18 08:04 Dose: 1 tablet Nicotine (Nicoderm Cq (Pbkc)) 21 mg TRANSDERM. DAILY [facility] Last Admin: 04/05/18 08:04 Dose: 21 mg Nutritional Formula (Lactose Free) (Glucerna Shake) 120 ml PO 4X/DAY [facility] Last Admin: 04/05/18 08:12 Dose: 120 ml Ondansetron HCl (Zofran Odt) 4 mg PO Q6H PRN PRN PRN Reason: NAUSEA Last Admin: 04/04/18 20:27 Dose: 4 mg Ondansetron HCl (Zofran) 4 mg IV Q8H PRN PRN PRN Reason: NAUSEA Last Admin: 04/04/18 13:29 Dose: 4 mg Psyllium Hydrophilic Mucilloid (Metamucil) 1 packet PO DAILY PRN PRN PRN Reason: Constipation Senna (Senokot) 1 tablet PO QHS PRN PRN Reason: Constipation Sodium Chloride () 5 - 15 ml IV UD PRN PRN Reason: SALINE FLUSH Last Admin: 04/05/18 10:41 Dose: 10 ml Thiamine HCl (Vitamin B1) 100 mg [facility] Last Admin: 04/05/18 08:03 Dose: 100 mg Trazodone HCl (Desyrel) 50 mg PO QHS [facility] Last Admin: 04/04/18 21:56 Dose: 50 mg Medical Necessity - Tobacco Use Smoking Status: Current every day smoker Assessment/Plan All Active Problems Isopropyl alcohol poisoning (Resolved) Suicide attempt (Resolved) OSMANI (acute kidney injury) (Resolved) Alcohol withdrawal (Acute) Patient is a 52-year-old gentleman with a history of chronic alcohol dependence with multiple admissions for alcohol withdrawal presented with significant tremors, 1. Acute alcohol withdrawal: Patient has been admitted MedSurg unit where he is undergoing medical stabilization using Librium patient was also placed on supplemental multivitamin, folic acid as well as thiamine. Patient remains in significant withdrawal with high CIWA requiring frequent IV Ativan 2. Right periorbital bruising following recent trauma 3. Diabetes mellitus type II: Controlled patient's oral hypoglycemics held. Placed on Accu-Cheks a.c. and at bedtime and covered with sliding scale insulin 4. Hypertension-blood pressure controlled, home medications continued with dose adjustment as needed 5. Tobacco dependence counseled on cessation, offered nicotine patch for tobacco cravings 6. Hypokalemia repleted per protocol 7. DVT prophylaxis; Lovenox Code Visit Inpatient E&M: 90406 [facility] Hosp L3
[2018-04-05 11:55] LABS: Bedside Glucose 92 mg/dL (70-110)
--- NOTE | 2018-04-05 12:43 | NURSING ---
This RN responded to staff call. DRIVER EDUCATION INSTRUCTOR stated pt seemed to be having a seizure for about 30 seconds. pt stated he doesn't feel like it was a seizure. Vitals obtain. Dr. Negron and operations administrator notified.
--- NOTE | 2018-04-05 13:15 | CHAPLAIN ---
Type of Pastoral Visit _x__ Initial Visit ___ Follow-up Visit ___ On-call Visit ___ General Patient Visit ___ Spiritual Assessment ___ Family Conference ___ Bereavement ___ Rapid Response ___ Code Blue ___ Other (describe below) Pastoral Care Referral From _x__ Patient ___ Family ___ Nurse ___ Physician ___ Materials Engineering Technician ___ Reroller Hand ___ Other (describe below) Sacrament/Intervention _x__ Active listening ___ Anointing ___ Catholic ___ Bereavement ___ Communion _x__ Shantel exploration ___ _x__ Life review _x__ Prayer ___ Reconciliation ___ Sacrament of Sick _x__ Supportive presence ___ Wedding ___ Other (describe below) Pastoral Comments patient claims he has had past successful treatment with [facility] and is client of [facility] in [place]; pt lists his main concerns as pain relief and finding a new place to live since he is being evicted from current home; pt welcomes prayer and spiritual support in the future
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
[2018-04-05] MEDS: Ibuprofen 600 MG Tablet PO (14:01)
[2018-04-05 16:26] LABS: Bedside Glucose 101 mg/dL (70-110)
[2018-04-05] MEDS: traZODone 50 MG Tablet PO (22:11)
[2018-04-05 22:16] LABS: Bedside Glucose 96 mg/dL (70-110)
[2018-04-06 02:08] VITALS: BP 130/84; PULSE 72; RESP 18; TEMP 36.4; O2SAT 97
[2018-04-06] MEDS: LORazepam 2 MG/ML Syringe IV ×2 (02:35→04:58)
[2018-04-06 04:55] VITALS: BP 162/99; PULSE 76; RESP 18; TEMP 36.9; O2SAT 97
[2018-04-06] MEDS: chlordiazePOXIDE 25 MG Capsule 50 MG PO (05:01)
[2018-04-06 06:36] LABS: Bedside Glucose 90 mg/dL (70-110)
--- NOTE | 2018-04-06 07:26 | PN_ITS ---
Subjective: Patient seen threatening to leave AMA. Still remains significantly tremulous at rest. Patient states he has a court date he has to attend Objective: GENERAL:tremulous at rest HEENT: Periorbital bruising involving the right orbit EYES; subconjunctival hemorrhage NECK; supple, normal thyroid, no distended JVD. RESPIRATORY: Diminished to auscultation bilaterally, CARDIOVASCULAR: Regular S1 S2, tachycardic GI: soft, non-tender, normoactive bowel sounds, : No Renal angle tenderness; EXTREMITIES: No edema, no clubbing, no cyanosis. MUSCULOSKELETAL: No Joint Tenderness; SKIN: No Rash PSYCH; flat affect Vitals/I&O's: Vital Signs Temp Pulse Resp BP Pulse Ox 98.4 F 76 18 162/99 H 97 04/06/18 04:55 04/06/18 04:55 04/06/18 04:55 04/06/18 04:55 04/06/18 04:55 Oxygen Delivery Method Room Air Weight: 87.453 kg Body Mass Index (BMI) 28.4 Finger Stick Blood Glucose 98 Intake and Output for Last 24 Hours 04/04/18 04/05/18 04/06/18 23:59 23:59 23:59 Intake Total 2385 / 2385 5001 / 5001 1134 / 1134 Balance 2385 / 2385 5001 / 5001 1134 / 1134 Laboratory Results 04/05/18 11:46: POC Glucose 92 04/05/18 16:17: POC Glucose 101 04/05/18 22:02: POC Glucose 96 04/06/18 06:30: POC Glucose 90 Current Medications Acetaminophen (Tylenol) 500 mg PO Q4H PRN PRN PRN Reason: Temp > 100.4 F Last Admin: 04/04/18 15:16 Dose: 500 mg Al Hydroxide/Mg Hydroxide (Mylanta Ii) 30 ml PO Q6H PRN PRN PRN Reason: Gastric Burning Amlodipine Besylate (Norvasc) 10 mg PO DAILY [facility] Last Admin: 04/05/18 08:03 Dose: 10 mg Atenolol (Tenormin (Beta Mariela)) 25 mg PO BID [facility] Last Admin: 04/05/18 22:11 Dose: 25 mg Bisacodyl (Dulcolax) 5 mg PO DAILY PRN PRN PRN Reason: Constipation Chlordiazepoxide (Librium) 50 mg PO Q8H [facility]; Taper Stop: 04/07/18 13:59 Last Admin: 04/06/18 05:01 Dose: 50 mg Dextrose (D50w Syringe) 0 gm IV X1 PRN; Protocol PRN Reason: Hypoglycemia Dicyclomine HCl (Bentyl) 20 mg PO Q6H PRN PRN PRN Reason: abdominal discomfort Enoxaparin Sodium (Lovenox) 40 mg SC DAILY@1000 [facility] Last Admin: 04/05/18 08:06 Dose: 40 mg Famotidine (Pepcid) 20 mg PO BID [facility] Last Admin: 04/05/18 22:11 Dose: 20 mg Folic [facility] ([facility] Acid) [facility] Last Admin: 04/05/18 08:04 Dose: 1 mg Glucagon () 1 mg IM .X1 PRN PRN Reason: Hypoglycemia Hydroxyzine Pamoate (Vistaril Pamoate Capsule) 50 mg PO Q6H PRN PRN PRN Reason: Mild Anxiety (score 1/3) Last Admin: 04/05/18 22:11 Dose: 50 mg Ibuprofen (Motrin) 600 mg PO Q8H PRN PRN PRN Reason: Mild-Moderate Pain (1-5/10) Last Admin: 04/05/18 14:01 Dose: 600 mg Insulin Human Lispro (Humalog Kwikpen (Bkc)) 0 unit SQ ACHS [facility]; Protocol Last Admin: 04/06/18 06:56 Dose: Not Given Levetiracetam (Keppra Tablet) 500 mg PO BID [facility] Last Admin: 04/05/18 22:11 Dose: 500 mg Loperamide HCl (Imodium) 2 - 4 mg PO UD PRN PRN Reason: LOOSE STOOLS Lorazepam (Ativan) 2 mg IV X1 PRN PRN Reason: Seizure Lorazepam (Ativan) 2 mg IV Q2H PRN PRN PRN Reason: Alcohol Withdrawal Last Admin: 04/06/18 04:58 Dose: 2 mg Magnesium Hydroxide (Milk Of Magnesia) 30 ml PO DAILY PRN PRN PRN Reason: Constipation Methocarbamol (Methocarbamol) 750 mg PO Q6H PRN PRN PRN Reason: Muscle Aches Last Admin: 04/05/18 08:08 Dose: 750 mg Multivitamins (Multivitamin) [facility] Last Admin: 02/13/19 08:04 Dose: 1 tablet Nicotine (Nicoderm Cq (Pbkc)) 21 mg TRANSDERM. DAILY [facility] Last Admin: 04/05/18 08:04 Dose: 21 mg Nutritional Formula (Lactose Free) (Glucerna Shake) 120 ml PO 4X/DAY [facility] Last Admin: 04/05/18 22:11 Dose: 120 ml Ondansetron HCl (Zofran Odt) 4 mg PO Q6H PRN PRN PRN Reason: NAUSEA Last Admin: 04/04/18 20:27 Dose: 4 mg Ondansetron HCl (Zofran) 4 mg IV Q8H PRN PRN PRN Reason: NAUSEA Last Admin: 04/04/18 13:29 Dose: 4 mg Psyllium Hydrophilic Mucilloid (Metamucil) 1 packet PO DAILY PRN PRN PRN Reason: Constipation Senna (Senokot) 1 tablet PO QHS PRN PRN Reason: Constipation Sodium Chloride () 5 - 15 ml IV UD PRN PRN Reason: SALINE FLUSH Last Admin: 04/05/18 10:41 Dose: 10 ml Thiamine HCl (Vitamin B1) [facility] Last Admin: 04/05/18 08:03 Dose: 100 mg Trazodone HCl (Desyrel) 50 mg PO QHS [facility] Last Admin: 04/05/18 22:11 Dose: 50 mg Medical Necessity - Tobacco Use Smoking Status: Current every day smoker Assessment/Plan All Active Problems Isopropyl alcohol poisoning (Resolved) Suicide attempt (Resolved) OSMANI (acute kidney injury) (Resolved) Alcohol withdrawal (Acute) Patient is a 52-year-old gentleman with a history of chronic alcohol dependence with multiple admissions for alcohol withdrawal presented with significant tremors, 1. Acute alcohol withdrawal: Patient has been admitted MedSurg unit where he is undergoing medical stabilization using Librium patient was also placed on supplemental multivitamin, folic acid as well as thiamine. Threatening to leave AMA 2. Right periorbital bruising following recent trauma 3. Diabetes mellitus type II: Controlled patient's oral hypoglycemics held. Placed on Accu-Cheks a.c. and at bedtime and covered with sliding scale insulin 4. Hypertension-blood pressure controlled, home medications continued with dose adjustment as needed 5. Tobacco dependence counseled on cessation, offered nicotine patch for tobacco cravings 6. Hypokalemia repleted per protocol 7. DVT prophylaxis; Lovenox Code Visit Inpatient E&M: 75657 [facility] Hosp L3
[2018-04-06 07:33] LABS: Hematocrit 35.4 % (40-54); Hemoglobin 12.1 g/dl (13.0-16.5); Mean Corp Hgb Conc 34.2 g/gl (32-36); Mean Corpuscular Hgb 33.2 pg (27.0-32.0); Mean Corpuscular Volume 97.3 fL (80-94); Mean Platelet Vol. 10.5 fl (6.2-12.0); Platelet Count 89 K/mm3 (150-450); RBC Distribution Width CV 14.9 % (11.6-14.6); RBC Distribution Width SD 51.2 fl (35.1-43.9); Red Blood Count 3.64 M/mm3 (4.6-6.2); Scan Indicated on CBC? Y/N NO; White Blood Count 5.3 K/mm3 (4.4-11.0)
--- NOTE | 2018-04-06 07:38 | NURSING ---
Pt wishing to leave AMA. Pt states he has a court date this morning that he can't miss. States that his girlfriend is picking him up at 0830. [place] paperwork signed, Dr. Mccormick notified. katharine Santos RN aware.
[2018-04-06 07:45] LABS: Anion Gap 8 (5-15); BUN 10 mg/dL (7-18); BUN/Creat Ratio 13.1 RATIO (10-20); Calcium,Total 8.4 mg/dL (8.5-10.1); Chloride 110 mmol/L (98-107); Creatinine, Serum 0.76 mg/dL (0.70-1.30); EST Glomerular Filtration Rate 114 mL/min (>60); Est Glom Filt Rate - Afr Amer 138 mL/min (>60); Estimated Creatinine Clearance 114.99 ml/min; Glucose 78 mg/dL (74-106); Sodium Level 142 mmol/L (136-145)
--- NOTE | 2018-04-06 07:58 | PCM.DC.SUM ---
Discharge Date and Diagnosis Date of Admission: 04/04/18 Date of Discharge: 04/06/18 - Primary Discharge Diagnosis Acute alcohol withdrawal - Secondary Discharge Diagnosis Chronic Problems DM type 2 (diabetes mellitus, type 2) (Chronic) Bipolar 1 disorder (Chronic) History of kidney stones (Chronic) Continuous chronic alcoholism (Chronic) up to 1 gallon vodka daily Tobacco use (Chronic) Psychiatric pseudoseizure (Chronic) Homelessness (Chronic) Benign essential hypertension (Chronic) Hospital Course and Treatment Operations: None Summary of Care Provided: Patient is a 52-year-old gentleman with a history of chronic alcohol dependence with multiple admissions for alcohol withdrawal presented with significant tremors, 1. Acute alcohol withdrawal: Patient has been admitted MedSur unit where he is undergoing medical stabilization using Librium patient was also placed on supplemental multivitamin, folic acid as well as thiamine. Patient threatened to leave AMA 2 days after his admission. All attempts made for patient to rescind his decision proved futile. 2. Right periorbital bruising following recent trauma 3. Diabetes mellitus type II: Controlled patient's oral hypoglycemics held. Placed on Accu-Cheks a.c. and at bedtime and covered with sliding scale insulin 4. Hypertension-blood pressure controlled, home medications continued with dose adjustment as needed 5. Tobacco dependence counseled on cessation, offered nicotine patch for tobacco cravings 6. Hypokalemia repleted per protocol 7. DVT prophylaxis; Lovenox - Physical Exam General: Non-Cooperative Lungs: Diminished Neurological: Neuro grossly intact Vital Signs Temp Pulse Resp BP Pulse Ox 98.4 F 76 18 162/99 H 97 04/06/18 04:55 04/06/18 04:55 04/06/18 04:55 04/06/18 04:55 04/06/18 04:55 Oxygen Delivery Method Room Air Weight: 87.453 kg Body Mass Index (BMI) 28.4 Finger Stick Blood Glucose 98 Intake and Output for Last 24 Hours 04/04/18 04/05/18 04/06/18 23:59 23:59 23:59 Intake Total 2385 / 2385 5001 / 5001 1134 / 1134 Balance 2385 / 2385 5001 / 5001 1134 / 1134 Laboratory Tests Past 24 Hrs 04/06/18 04/06/18 07:15 07:15 WBC 5.3 RBC 3.64 L Hgb 12.1 L Hct 35.4 L MCV 97.3 H MCH 33.2 H MCHC 34.2 RDW 14.9 H RDW Differential 51.2 H Plt Count 89 L MPV 10.5 Sodium 142 Potassium 4.0 Chloride 110 H Carbon Dioxide 24.0 Anion Gap 8 BUN 10 Creatinine 0.76 Estim Creat Clear Calc 114.99 Est GFR (MDRD) Af Amer 138 Est GFR (MDRD) Non-Af 114 BUN/Creatinine Ratio 13.1 Glucose 78 Calcium 8.4 L POC Glucose 04/06/18 04/05/18 04/05/18 06:30 22:02 16:17 POC Glucose 90 96 101 04/05/18 11:46 POC Glucose 92 Discharge Diet: No Restrictions Home Medications: Medications to take at Discharge ALPRAZolam [Xanax] 1 tab PO BID PRN 04/04/18 Amlodipine [Norvasc] 10 mg PO DAILY 04/04/18 Atenolol [Tenormin (beta clem)] 25 mg PO BID 04/04/18 Levetiracetam 500 mg PO BID 04/04/18 Primary Care Physician: Edison Shannon MD [Primary Care Provider] - Disposition: Against Medical Advice Minutes spent on discharge:: 35 Patient Condition:: Stable Medical Necessity - Tobacco Use Smoking Status: Current every day smoker Tobacco Use: Cigarettes Meaningful Use Info Meaningful Use Diagnoses (Choose all that apply): None applicable Code Visit Inpatient E&M: 27964 Disch Hosp
== END 2018-04-06 07:45 | disposition left against medical advice (07) | DRG 894 ==
LOC: ED 08:08 → PCU 10:26 → MS2 11:01 → PCU 04-05 07:17 → MS2 04-05 07:17
PROVIDERS: Admitting Provider Internal Medicine; Emergency Provider Emergency Medicine; Family Provider Family Medicine; PCP Family Medicine; Visit Provider Internal Medicine
DX: F10.239 Alcohol dependence with withdrawal, unspecified (principal); I10 Essential (primary) hypertension; F31.9 Bipolar disorder, unspecified; E11.9 Type 2 diabetes mellitus without complications; E87.6 Hypokalemia; S00.11XA Contusion of right eyelid and periocular area, initial encounter; X58.XXXA Exposure to other specified factors, initial encounter; Y90.8 Blood alcohol level of 240 mg/100 ml or more; Z79.84 Long term (current) use of oral hypoglycemic drugs; F17.210 Nicotine dependence, cigarettes, uncomplicated; Z87.442 Personal history of urinary calculi
CPT/HCPCS: 36415; 80048; 80320; 81001; 82962; 85025; 85027; 85610; 93005; 97802; 99285; 99406; J7030; A4216; G0480; J2405; J3490

== ENCOUNTER 2018-04-06 15:37 | Emergency (ER) | payer SELFPAY ==
[2018-04-06 15:37] VITALS: BMI 29.9
[2018-04-06 15:39] VITALS: BP 193/88; PULSE 99; RESP 22; TEMP 37; O2SAT 97; BMI 43.2
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
[2018-04-06] MEDS: Acetaminophen 500 MG Tablet 1000 MG PO (16:24)
--- NOTE | 2018-04-06 16:46 | ED.RN ---
PT REFUSED TO ALLOW BLOOD TO BE DRAWN. INFORMED AND STATED THAT PT COULD LEAVE IF HE HAD SOMEONE TO TAKE RESPONSIBILITY FOR HIS WELLBEING. WAS PRESENT AND ASKED SPECIFICALLY IF SHE WAS DRIVING HIM HOME AND TAKING REASONABILITY FOR HIS WELLBEING. SHE STATED YES. HE WAS ABLE TO AMBULATE FROM DEPARTMENT WITH NO GAIT ISSUES OR VISIBLE BALANCE DISTURBANCE. HE EXITED DEPARTMENT HAND IN HAND WITH HIS . Alexandr CASTELLON, RN [id number]
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
== END 2018-04-06 17:23 | disposition left against medical advice (07) ==
LOC: ED 17:16
PROVIDERS: Emergency Provider Emergency Medicine; Family Provider Family Medicine; PCP Family Medicine
DX: F10.10 Alcohol abuse, uncomplicated (principal); Y90.9 Presence of alcohol in blood, level not specified; I10 Essential (primary) hypertension; Z79.899 Other long term (current) drug therapy
CPT/HCPCS: 99285

== ENCOUNTER 2018-04-07 12:50 | Emergency (ER) | payer SELFPAY ==
[2018-04-06 15:39] VITALS: BMI 43.2
[2018-04-07 12:53] VITALS: BP 116/84; PULSE 97; RESP 16; TEMP 36.4; O2SAT 88; BMI 32.1
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
--- NOTE | 2018-04-07 13:50 | CM.ED ---
SOCIAL WORK NOTE DISCUSSED CASE WITH DR. SOARES AND UPDATED ON THIS WORKER'S CONVERSATION WITH PT'S SIG OTHER, HAM. PER DR. SOARES PT HAS AGREED TO MEDICAL WORK UP AT THIS TIME. THIS WORKER TO REMAIN AVAILABLE FOR NEEDS. FABIO GARCIA, ELECTRIC MOTOR TESTER, MEDICAL LEGAL INVESTIGATOR.
[2018-04-07] MEDS: LORazepam 2 MG/ML Syringe IV ×2 (13:51→14:35)
[2018-04-07] MEDS: Ondansetron 4 MG/2 ML Vial IV (13:54)
[2018-04-07] MEDS: 0.9% Normal Saline 1,000 ML 999 ML IV (13:54)
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
[2018-04-07 13:56] VITALS: BP 94/76; PULSE 116; RESP 20
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
[2018-04-07 14:07] LABS: Absolute Lymphocyte Count 2.45 X10^3/ul (0.83-4.51); Absolute Neutrophil Count 4.4 X10^3/uL (2.0-7.7); Basophil# 0.03 X10^3/uL; Basophil% 0.4 % (0-1); Eosinophils% 2.6 % (0-5); Hematocrit 38.2 % (40-54); Lymphocyte # 2.45 X10^3/ul (4.0); Lymphocyte % 32.1 % (19-41); Mean Corpuscular Hgb 32.7 pg (27.0-32.0); Monocyte% 6.5 % (0-10); Neutrophil # 4.44 X10^3/uL (2.7-7.7); Neutrophil % 58.1 % (47-70); Platelet Count 127 K/mm3 (150-450); RBC Distribution Width CV 15.5 % (11.6-14.6); RBC Distribution Width SD 53.8 fl (35.1-43.9); Red Blood Count 3.98 M/mm3 (4.6-6.2); White Blood Count 7.6 K/mm3 (4.4-11.0)
[2018-04-07 14:11] LABS: POSITIVE COUNT NO; POSITIVE DIFFERENTIAL NO; POSITIVE MORPHOLOGY NO
[2018-04-07 14:20] LABS: Prothrombin Time (Protime)PT. 12.8 SECONDS (11.7-14.9)
[2018-04-07 14:21] LABS: AST(SGOT) 85 U/L (15-37); Alanine Aminotransfer ALT/SGPT 101 U/L (16-61); Albumin, Serum 3.3 g/dL (3.2-5.0); Alkaline Phosphatase 82 U/L (45-117); Anion Gap 11 (5-15); BUN 5 mg/dL (7-18); BUN/Creat Ratio 6.9 RATIO (10-20); Bilirubin, Direct 0.14 mg/dL (0.00-0.30); Calcium,Total 8.3 mg/dL (8.5-10.1); Chloride 112 mmol/L (98-107); Creatinine, Serum 0.73 mg/dL (0.70-1.30); EST Glomerular Filtration Rate 120 mL/min (>60); Est Glom Filt Rate - Afr Amer 146 mL/min (>60); Estimated Creatinine Clearance 127.51 ml/min; Globulin 3.5 g/dL (2.2-4.2); Glucose 71 mg/dL (74-106); Potassium 3.1 mmol/L (3.5-5.1); Protein, Total 6.8 g/dL (6.4-8.2); Sodium Level 147 mmol/L (136-145)
[2018-04-07 14:36] VITALS: BP 154/93; PULSE 91; RESP 17; O2SAT 99
[2018-04-07 15:18] VITALS: BP 132/91; PULSE 84; RESP 15
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
[2018-04-07 16:13] VITALS: BP 134/94; PULSE 85; RESP 14
== END 2018-04-07 16:19 | disposition home or self-care (01) ==
PROVIDERS: Emergency Provider Emergency Medicine; Family Provider Family Medicine; PCP Family Medicine
DX: S02.2XXA Fracture of nasal bones, initial encounter for closed fracture (principal); S30.0XXA Contusion of lower back and pelvis, initial encounter; S20.229A Contusion of unspecified back wall of thorax, initial encounter; F10.129 Alcohol abuse with intoxication, unspecified; Z79.899 Other long term (current) drug therapy; Y90.9 Presence of alcohol in blood, level not specified; W19.XXXA Unspecified fall, initial encounter; Y93.89 Activity, other specified; Y92.89 Other specified places as the place of occurrence of the external cause; Y99.8 Other external cause status
CPT/HCPCS: 70450; 70486; 71260; 72125; 73080; 74177; 80048; 80076; 85025; 85610; 85730; 96361; 96374; 96375; 96376; 99284; J7030; Q9967; A4216; J2405

== ENCOUNTER 2018-04-10 21:35 | Emergency (ER) | payer SELFPAY ==
[2018-04-10 21:36] VITALS: BP 98/74; PULSE 98; RESP 17; TEMP 36.7; O2SAT 95; BMI 29.9
--- NOTE | 2018-04-10 21:54 | ED.RN ---
PATIENT IS ONLY ORIENTED TO HIS SELF RIGHT NOW. HE IS VERY TEARFUL AND APOLOGIZING FREQUENTLY. HE STATES HE IS UNABLE TO FEEL ANYTHING FROM HIS BUTT TO HIS NECK. MULTIPLE OLD BRUISES NOTED IN VARYING STAGES OF HEALING. HIS RIGHT EYE IS BLOOD SHOT. HE HAS LOTS OF ABRASIONS AND DRIED BLOOD ON HIS UPPER EXTREMITIES. HE STATES HE DRANK A GALLON OF VODKA TODAY. DR. NAVARRO IS AT THE BEDSIDE CURRENTLY.
--- NOTE | 2018-04-10 21:56 | CT_ITS ---
STUDY: CT CERVICAL SPINE WITHOUT CONTRAST REASON FOR EXAM: Male, 52 years old. Multiple falls. RADIATION DOSAGE (If Supplied By Facility): CTDIvol = ( 27.47 ) mGy, DLP = ( 660.36 ) mGycm TECHNIQUE: High resolution transaxial imaging was performed without contrast material. Sagittal and coronal images were reconstructed. Individualized dose optimization techniques were used for this CT. COMPARISON: April 07, 2018 FINDINGS: Normal craniovertebral junction. There are degenerative changes of the anterior atlantoaxial articulation. Normal odontoid process. There is reversal of the normal cervical lordosis. Normal vertebral bodies and posterior osseous elements. There is no acute fracture seen. C2-3: Normal endplates. Normal disc height and morphology. Normal central canal and intervertebral neuroforamina. Facet spurring on the right. C3-4: Mild spurring and disc bulge. Normal disc height and morphology. Normal central canal and intervertebral neuroforamina. C4-5: Disc bulge and spurring. Uncovertebral spurring with left foraminal narrowing. C5-6: Fusion of the disc space. Mild spurring. Normal central canal and intervertebral neuroforamina. C6-7: Disc space narrowing. Disc bulge and spurring. Uncovertebral spurring with right foraminal narrowing. C7-T1: Normal endplates. Normal disc height and morphology. Normal central canal and intervertebral neuroforamina. Normal visualized soft tissue structures. CT/Spine Cervical without Contras IMPRESSION: Multilevel degenerative changes, as described above. Electronically Signed: Teofilo Davies MD at 23:25 EST , Service support ,
--- NOTE | 2018-04-10 21:56 | CT_ITS ---
STUDY: CT CHEST WITHOUT CONTRAST REASON FOR EXAM: Male, 52 years old. Multiple falls RADIATION DOSAGE (If Supplied By Facility): CTDIvol = ( 24.78 ) mGy, DLP = ( 866.27 ) mGycm TECHNIQUE: Transaxial imaging was performed without the administration of intravenous contrast material. Individualized dose optimization techniques were used for this CT. COMPARISON: None. FINDINGS: The lungs are expanded. There is a left upper lobe calcified granuloma. Pulmonary interstitial densities, left more than right. Possible left lower lobe mild infiltrate. Nonspecific 3 mm peripheral right lower lobe nodule laterally, image 80. Normal heart and pericardium. Up to 1.5 cm nodes in the mediastinum. Normal hilar regions. Normal unenhanced pulmonary arteries. Normal aorta arch and descending thoracic aorta. Normal osseous structures. Fatty liver. Hiatal hernia. CT/Chest without Contrast IMPRESSION: Pulmonary tissue densities, left more than right. Possible left lower lobe infiltrate. Mild mediastinal adenopathy. Fatty liver. Hiatal hernia. Electronically Signed: Porter Escobar DO at 23:39 EST Tel [phone], Service support ,
--- NOTE | 2018-04-10 21:56 | CT_ITS ---
STUDY: CT ABDOMEN AND PELVIS WITHOUT CONTRAST REASON FOR EXAM: Male, 52 years old. Multiple falls. RADIATION DOSAGE (If Supplied By Facility): CTDIvol = ( 27.19 ) mGy, DLP = ( 1339.79 ) mGycm TECHNIQUE: Transaxial images were obtained from the dome of the diaphragm to the symphysis pubis without oral contrast, and without intravenous contrast. Sagittal and coronal images were reconstructed. Individualized dose optimization techniques were used for this CT. COMPARISON: April 07, 2018. FINDINGS: There is lower lung atelectasis. The visualized portions of the heart are within normal limits. There is decreased attenuation of the liver consistent with steatosis. Normal gallbladder and extrahepatic biliary system. Normal spleen. Normal pancreas. Normal bilateral adrenal glands. Normal right kidney. There is 1.2 cm stone in the lower pole of the left kidney. There is no hydronephrosis. There is a small hiatal hernia. There is wall thickening of the distal esophagus Normal small intestine. There are multiple colonic diverticula consistent with diverticulosis. The appendix is visualized and appears normal. There is diffuse atherosclerotic calcification of the abdominal aorta, without a demonstrated aneurysm. Normal inferior vena cava. Normal retroperitoneum. Normal urinary bladder. There are prostatic calcifications. There is no free fluid in the abdomen or pelvis. Normal abdominal wall. There are degenerative changes of the lumbar spine and hips. CT/Abdomen/Pelvis without Cont IMPRESSION: No solid organ injury. No fracture. Fatty infiltration of the liver. Left renal stone. No hydronephrosis. Colonic diverticulosis. No obstruction or abscess. Electronically Signed: Teofilo Davies MD at 23:33 EST , Service support ,
--- NOTE | 2018-04-10 21:57 | CM.ED ---
Social Work Note Pt intoxicated and only oriented to self. Will f/u with tomorrow if still in ED or via telephone call. Alida Dias, VENDOR MANAGEMENT ASSOCIATE, DRIVING SCHOOL INSTRUCTOR
--- NOTE | 2018-04-10 22:10 | RAD_ITS ---
STUDY: X-RAY CHEST REASON FOR EXAM: Male, 52 years old. Multiple falls TECHNIQUE: Frontal views COMPARISON: January 27, 2018. FINDINGS: The lungs are clear and expanded. There is no demonstrated pleural abnormality. Normal size heart. Normal mediastinum and bridget. Normal visualized pulmonary arteries. Normal visualized aortic arch and descending thoracic aorta. Normal visualized thoracic spine. Normal visualized ribs, clavicles, and shoulders. There is no demonstrated abnormality of the visualized soft tissue structures of the upper abdomen. RAD/Chest 1 View (Portable) IMPRESSION: Normal x-ray examination of the chest. Electronically Signed: Porter Escobar DO at 22:24 EST Tel [phone], Service support ,
--- NOTE | 2018-04-10 22:16 | CT_ITS ---
STUDY: CT BRAIN WITHOUT CONTRAST REASON FOR EXAM: Male, 52 years old. Multiple falls RADIATION DOSAGE (If Supplied By Facility): CTDIvol = ( 44.99 ) mGy, DLP = ( 779.24 ) mGycm TECHNIQUE: Transaxial CT imaging of the brain was performed without administration of intravenous contrast material. Individualized dose optimization techniques were used for this CT. COMPARISON: None. FINDINGS: Normal soft tissue structures. Normal calvarium. Normal size ventricles and extra-axial spaces for the patient's age. Normal white matter tracts of the cerebral hemispheres. Normal basal ganglia and thalami. Normal brainstem. Normal cerebellum. There is no intracranial hemorrhage. There are no findings of an acute ischemic infarction. Normal visualized paranasal sinuses. Nasal fractures, of questionable age. CT/Brain/Head without Contrast IMPRESSION: No acute intracranial pathology of the brain. Nasal fractures, of questionable age. Electronically Signed: Porter Escobar DO at 23:25 EST Tel [phone], Service support ,
[2018-04-10 22:17] LABS: Absolute Lymphocyte Count 1.93 X10^3/ul (0.83-4.51); Absolute Neutrophil Count 4.9 X10^3/uL (2.0-7.7); Basophil# 0.03 X10^3/uL; Basophil% 0.4 % (0-1); Eosinophil# 0.16 X10^3/uL; Eosinophils% 2.1 % (0-5); Hematocrit 36.2 % (40-54); Hemoglobin 12.4 g/dl (13.0-16.5); Lymphocyte # 1.93 X10^3/ul (4.0); Lymphocyte % 25.3 % (19-41); Mean Corp Hgb Conc 34.3 g/gl (32-36); Mean Corpuscular Hgb 32.8 pg (27.0-32.0); Mean Corpuscular Volume 95.8 fL (80-94); Mean Platelet Vol. 9.8 fl (6.2-12.0); Monocyte# 0.61 X10^3/uL; Neutrophil # 4.88 X10^3/uL (2.7-7.7); Neutrophil % 63.9 % (47-70); Platelet Count 124 K/mm3 (150-450); RBC Distribution Width CV 15.6 % (11.6-14.6); RBC Distribution Width SD 54.2 fl (35.1-43.9); Red Blood Count 3.78 M/mm3 (4.6-6.2); White Blood Count 7.6 K/mm3 (4.4-11.0)
[2018-04-10 22:19] LABS: POSITIVE COUNT NO; POSITIVE DIFFERENTIAL NO; POSITIVE MORPHOLOGY NO
[2018-04-10 22:49] LABS: AST(SGOT) 57 U/L (15-37); Alanine Aminotransfer ALT/SGPT 88 U/L (16-61); Albumin, Serum 3.1 g/dL (3.2-5.0); Alkaline Phosphatase 109 U/L (45-117); Anion Gap 8 (5-15); BUN 6 mg/dL (7-18); BUN/Creat Ratio 7.8 RATIO (10-20); Bilirubin, Direct 0.11 mg/dL (0.00-0.30); Calcium,Total 7.6 mg/dL (8.5-10.1); Chloride 116 mmol/L (98-107); Creatinine, Serum 0.77 mg/dL (0.70-1.30); EST Glomerular Filtration Rate 113 mL/min (>60); Est Glom Filt Rate - Afr Amer 136 mL/min (>60); Globulin 3.7 g/dL (2.2-4.2); Glucose 92 mg/dL (74-106); Potassium 3.1 mmol/L (3.5-5.1); Protein, Total 6.8 g/dL (6.4-8.2); Sodium Level 148 mmol/L (136-145)
--- NOTE | 2018-04-10 23:12 | ED.RN ---
PT PULLED IV OUT. DR NAVARRO NOTIFIED
[2018-04-10 23:41] VITALS: BP 137/83; PULSE 94; RESP 20; O2SAT 93
--- NOTE | 2018-04-11 00:35 | ED.VISSUMM ---
- ER Visit Summary Date of Service: 04/11/18 Chief Complaint: EtOH intoxication History of Present Illness: The patient is a 52 M Reading by EMS with alcohol intoxication and multiple falls. Patient is complaining of back pain and numbness up the middle of his back. He has no weakness or numbness in his arms or legs. He does admit to drinking a gallon of vodka today. Patient has a history of diabetes, hypertension, kidney stones, bipolar disorder, pseudoseizure. This is the patient's sixth visit in the last 10 days with similar type symptoms. He was admitted at one point for detox. Physical Examination: Blood pressure is 98/74, temperature 98.1, heart rate 98, respiratory rate 17, pulse ox 95% on room air. Patient is lying in bed. He is cooperative. He does smell of alcoholic beverage. Head neck examination was a right eye subconjunctival hemorrhage. Pupils equal and reactive. C-spine is nontender. Heart is regular rate and rhythm. Lungs sounds are clear. No anterior chest wall tenderness. Abdomen is soft nontender. Back examination was diffuse tenderness throughout the thoracic and lumbar spine. There is ecchymosis noted to the left flank. He has an abrasion along his left shoulder blade and his right foot. Neuro exam reveals no focal deficits. Test Results: CBC was normal white count hemoglobin of 12.4 and a platelet count of 124,000. Chemistry studies reveal a sodium of 148 potassium 3.1. LFTs significant for an ALT of 88 and AST of 57. EtOH is 378. Portable chest x-ray is unremarkable. CT scan of the head and C-spine shows no acute changes. CT chest shows pulmonary tissue densities left greater than right. There is a questionable left lower lobe infiltrate. CT the abdomen pelvis shows no organ injury and no fracture. Emergency Department Course and Treatment: Patient is being observed in the emergency room. He has not been able to find a ride home. He will be observed until clinically sober. Treatment Plan: [] Disposition: Anticipated discharge Impression: 1. EtOH intoxication 2. Back contusion This note was generated with [employer] software. It may contain incorrect words, spelling, and punctuation that were not noted in review of the chart prior to signing ED Disposition - Plan for ED Patient: Referrals: Edison Shannon MD [Primary Care Provider] -
--- NOTE | 2018-04-11 00:42 | ED.DEP ---
ED Disposition - Plan for ED Patient: Disposition: Home or Assisted Living Instructions: ED Alcohol Intoxication, ED Contusion Back Referrals: Edison Shannon MD [Primary Care Provider] - [facility] [STAFF PHYSICIAN] -
[2018-04-11 01:57] VITALS: BP 145/93; PULSE 107; RESP 18; O2SAT 97
--- NOTE | 2018-04-11 03:08 | ED.RN ---
PATIENT TOLD ME HE HAS A SORE ON HIS BUTTUCK. 2.5 X1 CM WIDE WITH A WHITE CENTER. DR. CALVERT MADE AWARE AND HE IS LOOKING AT IT RIGHT NOW. HE IS OBTAINING A SAMPLE TO SEND FOR A CULTURE.
[2018-04-11 03:12] VITALS: BP 141/93; PULSE 104; RESP 23; O2SAT 97
[2018-04-11] MEDS: LORazepam 2 MG/ML Syringe IM (03:25)
[2018-04-11] MEDS: Cephalexin 250 MG Capsule 500 MG PO (03:25)
[2018-04-11] MEDS: proMETHazine 25 MG/ML Syringe 12.5 MG IM (03:25)
--- NOTE | 2018-04-11 04:10 | ED.RN ---
PATIENT HAS HIS EYES CLOSED AND APPEARS TO BE SLEEPING. HIS VISIBLE TREMOR HAS MOSTLY SUBSIDED WHILE HE IS SLEEPING OTHER THAN AN OCCASIONAL HEAD TREMOR.
--- NOTE | 2018-04-11 05:25 | ED.RN ---
PATIENT IS SLEEPING CURRENTLY. HIS PULSE IS 95 AND RESPS ARE 18. NO VISIBLE TREMOR NOTED.
[2018-04-11 05:26] VITALS: PULSE 100; O2SAT 17
[2018-04-11 05:51] VITALS: BP 150/90; PULSE 117; RESP 19; O2SAT 95
--- NOTE | 2018-04-11 06:39 | ED.RN ---
PATIENT IS SLEEPING SOUNDLY RIGHT NOW. WE STILL DO NOT HAVE AN OPTION TO GET THE PATIENT HOME. HE IS NOT ABLE TO SAFELY WALK OR BE TRANSFERRED IN HIS CONDITION RIGHT NOW.
[2018-04-11 07:08] VITALS: PULSE 124; RESP 26
[2018-04-11 08:43] VITALS: BP 137/95; PULSE 109; RESP 24
--- NOTE | 2018-04-13 10:23 | ED.RN ---
called and left message with the phone number that was provided and instructed to call back.
== END 2018-04-11 08:44 | disposition home or self-care (01) ==
PROVIDERS: Emergency Provider Emergency Medicine; Family Provider Family Medicine; PCP Family Medicine
DX: F10.129 Alcohol abuse with intoxication, unspecified (principal); S20.222A Contusion of left back wall of thorax, initial encounter; S30.0XXA Contusion of lower back and pelvis, initial encounter; S31.829A Unspecified open wound of left buttock, initial encounter; L08.9 Local infection of the skin and subcutaneous tissue, unspecified; Y90.8 Blood alcohol level of 240 mg/100 ml or more; Z72.0 Tobacco use; Z87.442 Personal history of urinary calculi; W18.30XA Fall on same level, unspecified, initial encounter; Y93.89 Activity, other specified; Y92.89 Other specified places as the place of occurrence of the external cause; Y99.8 Other external cause status
CPT/HCPCS: 70450; 71045; 71250; 72125; 74176; 80048; 80076; 80320; 85025; 87070; 87077; 87186; 87205; 96372; 99285; G0480

== ENCOUNTER 2019-08-21 17:40 | Inpatient (IN) | payer MEDICAID, SELFPAY ==
[2019-08-21 17:43] VITALS: BP 154/78; PULSE 104; RESP 18; TEMP 36.4; O2SAT 99; BMI 43.5
--- NOTE | 2019-08-21 18:20 | ED.VISSUMM ---
- ER Visit Summary Date of Service: 08/21/19 Chief Complaint: Requesting detox for alcoholism History of Present Illness: The patient is a 54 M history of prior stroke, hypertension, reflux, alcohol withdrawal seizures and kidney stones. Patient states he drinks a gallon to a gallon a half of liquor a day. Smokes a pack cigarettes a day and occasionally smokes marijuana. Patient states that he has been having trouble for 1 to 2 years. On again off again abusing alcohol. And is time to get help. Physical Examination: Middle-aged male no acute distress vital signs stable afebrile. H EENT exam unremarkable. Neck nontender. Lungs clear to auscultation. Heart regular rhythm rate about 100 no murmur. Abdomen soft nontender and normal bowel sounds no peritoneal signs. Patient moving all 4 extremities. His calves and lower legs are nontender except for his feet are mildly swollen. Neurologically is awake and alert with no focal motor deficits. Patient states he thought he was having black stool. I did a rectal exam and his stool was brown. No signs of gross blood. Test Results: CBC white count of 5 hemoglobin 15. Platelets are 1 31,000. Chemistries unremarkable normal creatinine. Liver enzymes slightly elevated consistent with his alcohol abuse history. Alcohol level pending. Emergency Department Course and Treatment: Screening labs. Speak to the hospitalist about admission for alcohol detox. Treatment Plan: Spoke to hospitalist patient will be admitted. Repeat exam is doing well at 19 10 PM. Disposition: admission Impression: Requesting detox for alcoholism History of alcohol, tobacco and marijuana abuse History of hypertension and prior stroke and withdrawal seizures This note was generated with [employer] dictation software. It may contain incorrect words, spelling, and punctuation that were not noted in review of the chart prior to signing ED Disposition - Plan for ED Patient: Referrals: Edison Shannon MD [Primary Care Provider] -
[2019-08-21 18:32] LABS: Absolute Lymphocyte Count 2.55 X10^3/uL (0.83-4.51); Basophil# 0.05 X10^3/uL; Eosinophil# 0.13 X10^3/uL; Eosinophils% 2.5 % (0-5); Hematocrit 42.8 % (40-54); Hemoglobin 15.2 g/dL (13.0-16.5); Lymphocyte # 2.55 X10^3/ul (4.0); Lymphocyte % 49.2 % (19-41); Mean Corp Hgb Conc 35.5 g/dL (32-36); Mean Corpuscular Hgb 31.9 pg (27.0-32.0); Mean Corpuscular Volume 89.9 fL (80-94); Mean Platelet Vol. 9.7 fl (6.2-12.0); Monocyte# 0.48 X10^3/uL; Monocyte% 9.3 % (0-10); NRBC Flagged by Analyzer 0 % (0-5); Neutrophil # 1.95 X10^3/uL (2.7-7.7); Neutrophil % 37.6 % (47-70); Platelet Count 131 K/mm3 (150-450); RBC Distribution Width CV 15.2 % (11.6-14.6); RBC Distribution Width SD 49.7 fl (35.1-43.9); Red Blood Count 4.76 M/mm3 (4.6-6.2); White Blood Count 5.2 K/mm3 (4.4-11.0)
[2019-08-21 18:53] LABS: AST(SGOT) 186 U/L (15-37); Alanine Aminotransfer ALT/SGPT 138 U/L (16-61); Albumin, Serum 3.3 g/dL (3.2-5.0); Alkaline Phosphatase 118 U/L (45-117); Anion Gap 8 (5-15); BUN 13 mg/dL (7-18); BUN/Creat Ratio 13.5 RATIO (10-20); Bilirubin, Direct 0.19 mg/dL (0.00-0.30); Calcium,Total 7.6 mg/dL (8.5-10.1); Chloride 106 mmol/L (98-107); Creatinine, Serum 0.96 mg/dL (0.70-1.30); EST Glomerular Filtration Rate 87 mL/min (>60); Est Glom Filt Rate - Afr Amer 105 mL/min (>60); Estimated Creatinine Clearance 88.99 ml/min; Globulin 3.5 g/dL (2.2-4.2); Glucose 125 mg/dL (74-106); Potassium 3.8 mmol/L (3.5-5.1); Protein, Total 6.8 g/dL (6.4-8.2); Sodium Level 138 mmol/L (136-145)
--- NOTE | 2019-08-21 19:35 | CM.ED ---
SOCIAL WORK Patient being admitted to [facility]. Call to Lisa with [employer] updating on patient's admission on confidential voicemail. Lalo Mohan, DEVELOPER PROGRAMMER, PENCILLER
[2019-08-21 19:45] VITALS: BP 154/78; PULSE 104; RESP 18; TEMP 36.9; O2SAT 99
[2019-08-21 19:53] VITALS: BMI 40.1
[2019-08-21 20:00] VITALS: BP 157/92; PULSE 99; RESP 20; TEMP 36.8; O2SAT 97
[2019-08-21] MEDS: LORazepam 2 MG/ML Syringe IV ×2 (20:08→21:01)
[2019-08-21 20:17] VITALS: BMI 40.1
[2019-08-21] MEDS: Atenolol 25 MG Tablet PO (20:27)
[2019-08-21] MEDS: Phenobarbital 32.4 MG Tablet 64.8 MG PO (20:27)
--- NOTE | 2019-08-21 20:29 | HP.PCM_ITS ---
Problem List (1) Transaminitis Status: Acute History of Present Illness Date of Admission: 08/21/19 Chief Complaint: EtOH witdrawal The patient is a 54 year old M who presented to the ED today for EtOH detox. His last detox was with phenobarbital here about 1.5 yo. He has had EtOH withdrawal seizures in the past. He states that he drinks about 1-1.5 gallon of vodka daily and he smokes about 1 PPD. He has had increased trouble with EtOH abuse over the last 1-2 yrs. His last drink was today at about 10-11 am. He states that he feels jittery and tremulous. He has had a stroke with no residual deficits and takes meds for HTN at home. His VS are stable. He has mild transaminitis and mild thrombocytopenia. Past Medical History Past Medical History (Chronic Problems): Chronic Problems DM type 2 (diabetes mellitus, type 2) (Chronic) Bipolar 1 disorder (Chronic) History of kidney stones (Chronic) Continuous chronic alcoholism (Chronic) up to 1 gallon vodka daily Tobacco use (Chronic) Psychiatric pseudoseizure (Chronic) Homelessness (Chronic) Benign essential hypertension (Chronic) Allergies amoxicillin [Amoxicillin] Allergy (Verified 08/21/19 17:42) Anaphylaxis Penicillins Allergy (Verified 08/21/19 17:42) Anaphylaxis Home Medications: Ambulatory Orders Medication Instructions Recorded Amlodipine [Norvasc] 10 mg PO DAILY 04/04/18 Atenolol [Tenormin (beta mariela)] 25 mg PO BID 04/04/18 Surgical History: no surgical history Psychiatric History: Bipolar, Depression Smoking Status: Current every day smoker Tobacco Use: Cigarettes Alcohol: Heavy - 1-1.5 gallon of vodka daily Drugs: Marijuana - *Family History Maternal History Items: No pertinent history Paternal History Items: Heart Disease Sibling History Items: No pertinent history Review of Systems Constitutional: Reports: Chills. Denies: Anorexia, Fever, Night Sweats, Malaise, Weakness, Weight Change, Fatigue Eyes: Denies: Blurred vision, Double vision, Drainage, Eyelid Inflammation, Pain, Redness, Vision Change HEENT: Denies: Difficulty Hearing, Difficulty Swallowing, Ear Pain, Head Aches, Hearing Changes, Nasal bleeding, Nasal Congestion, Post Nasal Drip, Sinus Drainage, Sore Throat Cardiovascular: Denies: Chest Pain, Claudication, Chest Pressure, Chest Tightness, Edema, Heaviness, Light Headedness, Orthopnea, Palpitations, Paroxysmal Noc. Dyspnea, Syncope Respiratory: Denies: Cough, Hemoptysis, Pleuritic Pain, Shortness of Breath, Shortness of breath at rest, Shortness of breath upon exertion, Sputum production, Wheezing Gastrointestinal: Reports: Diarrhea. Denies: Abdominal Pain, Constipation, Dyspepsia, Hematemesis, Hematochezia, Nausea, Melena, Vomiting Genitourinary: Denies: Dysuria, Frequency, Hematuria, Hesitancy, Incontinence, Nocturia, Retention, Urgency Musculoskeletal: Denies: Back Pain, Joint Pain, Joint stiffness, Joint swelling, Joint Tenderness, Muscle pain, Neck Pain Skin: Denies: Dryness, Jaundice, Lesions, Pruritis, Rash, Skin Changes, Wounds Neurological: Reports: Tremor. Denies: Balance problems, Blurred vision, Double vision, Change in Speech, Slurred speech, Confusion, Difficulty swallowing, Focal weakness, Headaches, Incoordination, Numbness, Tingling, Seizures Psychiatric: Denies: Anxiety, Depression Endocrine: Denies: Change in Body Habitus, Heat/ Cold Intolerance, Polydipsia, Polyuria Hematologic/ Lymphatic: Denies: Adenopathy, Anemia, Petechiae, Purpura VTE Information - Inpt Only VTE Present on Admission: No VTE Mechan Device Prophylaxis: None VTE Pharm Prophylaxis ordered?: Yes Patient Problems: Active and Suspected Problems Transaminitis (Acute) - Physical Exam Vitals/I&O's: Vital Signs Temp Pulse Resp BP Pulse Ox 98.3 F 99 20 H 157/92 H 97 08/21/19 20:00 08/21/19 20:00 08/21/19 20:00 08/21/19 20:00 08/21/19 20:00 Oxygen Delivery Method Room Air Weight: 123.2 kg Body Mass Index (BMI) 40.1 Finger Stick Blood Glucose 98 General: Alert, Oriented x3, Cooperative, Well developed, Well nourished, - - Obese WM lying in bed on L side, S/O at bedside HEENT: Atraumatic, PERRLA, EOMI, Normocephalic, EAC Clear Oral: Moist Mucosa, No Gingival or Mucosal Lesions/ Ulcerations Neck: Supple, No JVD, Negative Carotid Bruits, Negative Hepatojugular Reflux, No Nodes, No Nuchal Rigidity, Trachea Midline, Thyroid Normal Size and Texture Lungs: Clear to auscultation, No rhonchi, No wheeze, No rales, Diminished - diffusely Cardiovascular: Regular rate, Regular Rhythm, Normal S1, Normal S2, No murmurs, No Ectopic Activity, No rub noted, No Gallop Abdomen: Bowel Sounds Present, Soft, Non Tender, Non-Distended, No Hepato-splenomegaly, Obese, No hernias noted Extremities: No clubbing, No cyanosis, No edema, Capillary Refill Less than 3 Seconds, No Calf Tenderness, Peripheral Pulses Normal Skin: No rashes, No breakdown Musculoskeletal: No Tenderness to Palpation of Joints or Extremities, No Muscle Wasting Lymphatic: No Cervical, Supraclavicular, or Inguinal Adenopathy Neurological: Cranial nerves II-XII grossly intact, Deep Tendon Reflexes 2+/4 and Symmetrical, Neuro grossly intact, Motor Exam 5/5 strength throughout, Muscle tone normal, Sensory exam intact to light touch and pain, Coordination normal, - - mild tremor Psych/Mental Status: Normal Affect, Appropriate, - - apologetic for needing help, Alert and oriented to time, place, person, mood and affect Laboratory Results 08/21/19 16:25: WBC 5.2, RBC 4.76, Hgb 15.2, Hct 42.8, MCV 89.9, MCH 31.9, MCHC 35.5, RDW Std Deviation 49.7 H, RDW Coeff of Jeremy 15.2 H, Plt Count 131 L, MPV 9.7, Immature Gran % (Auto) 0.400, Neut % (Auto) 37.6 L, Lymph % (Auto) 49.2 H, Jefferson % (Auto) 9.3, Eos % (Auto) 2.5, Baso % (Auto) 1.0, Absolute Neuts (auto) 2.0, Absolute Lymphs (auto) 2.55, Nucleated RBC % 0 08/21/19 16:25: Sodium 138, Potassium 3.8, Chloride 106, Carbon Dioxide 24.0, Anion Gap 8, BUN 13, Creatinine 0.96, Estim Creat Clear Calc 88.99, Est GFR (MDRD) Af Amer 105, Est GFR (MDRD) Non-Af 87, BUN/Creatinine Ratio 13.5, Glucose 125 H, Calcium 7.6 L, Total Bilirubin 0.80, Direct Bilirubin 0.19, AST 186 H, ALT 138 H, Alkaline Phosphatase 118 H, Total Protein 6.8, Albumin 3.3, Globulin 3.5 08/21/19 16:25: Ethyl Alcohol 357.0 H* Current Medications Acetaminophen (Tylenol) 650 mg PO Q6H PRN PRN PRN Reason: Pain Score 1-10/Temp > 100.7 F Al Hydroxide/Mg Hydroxide (Mylanta Ii) 30 ml PO Q6H PRN PRN PRN Reason: Gastric Burning Amlodipine Besylate (Norvasc) 10 mg PO DAILY [facility] Atenolol (Tenormin (Beta Mariela)) 25 mg PO BID [facility] Last Admin: 08/21/19 20:27 Dose: 25 mg Documented by: Dextrose (D50w Syringe) 0 gm IV X1 PRN; Protocol PRN Reason: Hypoglycemia Dicyclomine HCl (Bentyl) 20 mg PO Q6H PRN PRN PRN Reason: abdominal discomfort Enoxaparin Sodium (Lovenox) 40 mg SC DAILY [facility] Folic Acid (Folic Acid) 1 mg PO DAILY@0800 [facility] Gabapentin (Neurontin) 300 mg PO Q8H PRN PRN PRN Reason: moderate to severe anxiety Glucagon () 1 mg IM .X1 PRN PRN Reason: Hypoglycemia Hydroxyzine Pamoate (Vistaril Pamoate Capsule) 50 mg PO Q4H PRN PRN PRN Reason: mild anxiety Loperamide HCl (Imodium) 2 mg PO Q4H PRN PRN PRN Reason: LOOSE STOOLS Lorazepam (Ativan) 2 mg PO Q2H PRN PRN; Protocol PRN Reason: CIWA score > 8 but <15 Lorazepam (Ativan) 2 mg PO UD PRN; Protocol PRN Reason: CIWA score >/=15. Lorazepam (Ativan) 2 mg IV Q2H PRN PRN; Protocol PRN Reason: CIWA score > 8 but <15 Last Admin: 08/21/19 20:08 Dose: 2 mg Documented by: Lorazepam (Ativan) 2 mg IV UD PRN; Protocol PRN Reason: CIWA score >/=15. Melatonin (Melatonin) 3 mg PO QHS PRN PRN PRN Reason: INSOMNIA Ondansetron HCl (Zofran Odt) 8 mg PO Q8H PRN PRN PRN Reason: NAUSEA Phenobarbital (Phenobarbital) 97.2 mg PO Q4H LIVIER; Taper Stop: 08/26/19 04:14 Last Admin: 08/21/19 20:27 Dose: 97.2 mg Documented by: Sodium Chloride () 10 - 40 ml IV UD PRN PRN Reason: SALINE FLUSH Thiamine HCl (Vitamin B1) 200 mg PO DAILYCM [facility]IER Stop: 08/25/19 08:01 Trazodone HCl (Desyrel) 100 mg PO QHS PRN PRN Reason: INSOMNIA Assessment/Plan All Active Problems Transaminitis (Acute) Isopropyl alcohol poisoning (Resolved) Suicide attempt (Resolved) OSMANI (acute kidney injury) (Resolved) Alcohol withdrawal (Acute) Acute EtOH withdrawal -admit to medical -EtOH detox protocol with Phenobarb and prn ativan -CIWA -Thiamine and folate -would recommend inpt rx after d/c Transaminitis -repeat in am -should improve with detox Mild Thrombocytopenia -plts 131 today -repeat in am -likely marrow toxicity from EtOH HTN -continue home meds H/O stroke -no residual deficits Tobacco Abuse -cessation recommened -nicotine patch MO -BMI 40.1 -recommend wgt loss -reduction in EtOH consumption should help DVT prophylaxis -Lovenox Code status -Full Inpatient E&M: 61660 Init Hosp L3
[2019-08-21 20:58] VITALS: BP 128/100; PULSE 85; RESP 18; TEMP 36.6; O2SAT 95
[2019-08-21 21:00] VITALS: BP 128/100; PULSE 87; RESP 18; TEMP 37; O2SAT 95
[2019-08-21] MEDS: 0.9% Saline Lock 10 ML Syringe IV (21:01)
--- NOTE | 2019-08-21 21:05 | NURSING ---
Patient had what appeared to be a seizure, he began shaking, gurling sound in throat which sounded like he couldn't breath, eyes were fixed, he would not respond to voice or touch, pulled the staff assist and within 1 min, he came out of it and was back to base line. Was given IV ativan, vitals were wnl.
[2019-08-22] VITALS (8 sets, daily range): BP systolic 119–177; BP diastolic 85–115; PULSE 68–83; RESP 16–18; TEMP 36.1–37; O2SAT 92–98
[2019-08-22] MEDS: Phenobarbital 32.4 MG Tablet 64.8 MG PO ×7 (00:49→23:21)
[2019-08-22] MEDS: Acetaminophen 325 MG Tablet 650 MG PO (01:00)
[2019-08-22] MEDS: hydrOXYzine PAM 25 MG Capsule 50 MG PO ×3 (01:01→21:18)
[2019-08-22] MEDS: Gabapentin 300 MG Capsule PO ×2 (04:08→14:52)
[2019-08-22] MEDS: LORazepam 2 MG/ML Syringe IV ×2 (04:21→07:40)
[2019-08-22] MEDS: 0.9% Saline Lock 10 ML Syringe IV ×3 (04:22→08:36)
--- NOTE | 2019-08-22 06:20 | NURSING ---
Pt began yelling, when JAE Garland and this nurse investigated he was found vomiting. He was cleaned off and new gown applied. During shift change after 0700, Zofran was administered.
[2019-08-22] MEDS: Ondansetron ODT 4 MG Tablet 8 MG PO (07:32)
[2019-08-22 07:48] LABS: ALB/GLOB Ratio 0.9 RATIO (0.9-2.4); AST(SGOT) 189 U/L (15-37); Alanine Aminotransfer ALT/SGPT 150 U/L (16-61); Albumin, Serum 3.4 g/dL (3.2-5.0); Alkaline Phosphatase 126 U/L (45-117); Anion Gap 9 (5-15); BUN 16 mg/dL (7-18); BUN/Creat Ratio 16.5 RATIO (10-20); Calcium,Total 7.4 mg/dL (8.5-10.1); Chloride 106 mmol/L (98-107); Creatinine, Serum 0.97 mg/dL (0.70-1.30); EST Glomerular Filtration Rate 86 mL/min (>60); Est Glom Filt Rate - Afr Amer 104 mL/min (>60); Estimated Creatinine Clearance 88.07 ml/min; Globulin 3.6 g/dL (2.2-4.2); Glucose 116 mg/dL (74-106); Magnesium 2.1 mg/dL (1.6-2.6); Potassium 3.8 mmol/L (3.5-5.1); Sodium Level 138 mmol/L (136-145)
[2019-08-22 08:30] LABS: International Normalized Ratio 1.7; Prothrombin Time (Protime)PT. 19.7 SECONDS (11.7-14.9)
[2019-08-22] MEDS: LORazepam 1 MG Tablet 2 MG PO ×4 (08:35→22:59)
[2019-08-22] MEDS: Folic Acid 1 MG Tablet PO (08:35)
[2019-08-22] MEDS: amLODIPine 10 MG Tablet PO (08:35)
[2019-08-22] MEDS: Atenolol 25 MG Tablet PO ×2 (08:35→20:05)
[2019-08-22] MEDS: Nystatin Powder 15gm Bottle 1 APPLIC TOPICAL ×2 (08:36→21:19)
[2019-08-22] MEDS: Enoxaparin 40 MG/0.4 ML Syringe SC (08:36)
[2019-08-22] MEDS: Thiamine Hydrochloride 100 MG Tablet 200 MG PO (08:36)
--- NOTE | 2019-08-22 09:17 | CASEMGMT ---
Social Work Note Pt is RAMP pt. SW placed a call to Lisa at [facility] and left message that pt will need to be seen. Tiana Puente ATHLETE MANAGER, SENIOR ENVIRONMENTAL TECHNICIAN
--- NOTE | 2019-08-22 10:14 | PCM.PN.HOSP ---
Patient Problems: Active and Suspected Problems Transaminitis (Acute) Reason for Visit: Acute alcohol withdrawal Subjective: Patient is a 54-year-old gentleman with a history of chronic alcohol dependence with multiple admissions for alcohol withdrawal presented with significant tremors. An assessment of acute alcohol withdrawal made admitted to regular nursing floor for further management Objective: GENERAL: Somewhat lethargic HEENT: Atraumatic; EYES; Anicteric, Normal Conjunctiva NECK; supple, normal thyroid, RESPIRATORY: Diminished to auscultation CARDIOVASCULAR: Regular S1 S2, GI: soft, normoactive bowel sounds, : No Renal angle tenderness; EXTREMITIES: No edema, no clubbing, MUSCULOSKELETAL: no muscle waisting NEURO: Awake; no lateralizing signs. SKIN: No Rash PSYCH; Flat affect Vitals/I&O's: Vital Signs Temp Pulse Resp BP Pulse Ox 97.5 F L 77 18 177/115 H 93 08/22/19 08:35 08/22/19 08:35 08/22/19 08:35 08/22/19 08:35 08/22/19 08:35 Oxygen Delivery Method Room Air Weight: 123.2 kg Body Mass Index (BMI) 40.1 Finger Stick Blood Glucose 98 Intake and Output for Last 24 Hours 08/20/19 08/21/19 08/22/19 23:59 23:59 23:59 Intake Total 100 / 100 Balance 100 / 100 Laboratory Results 08/21/19 16:25: WBC 5.2, RBC 4.76, Hgb 15.2, Hct 42.8, MCV 89.9, MCH 31.9, MCHC 35.5, RDW Std Deviation 49.7 H, RDW Coeff of Jeremy 15.2 H, Plt Count 131 L, MPV 9.7, Immature Gran % (Auto) 0.400, Neut % (Auto) 37.6 L, Lymph % (Auto) 49.2 H, Charles % (Auto) 9.3, Eos % (Auto) 2.5, Baso % (Auto) 1.0, Absolute Neuts (auto) 2.0, Absolute Lymphs (auto) 2.55, Nucleated RBC % 0 08/21/19 16:25: Sodium 138, Potassium 3.8, Chloride 106, Carbon Dioxide 24.0, Anion Gap 8, BUN 13, Creatinine 0.96, Estim Creat Clear Calc 88.99, Est GFR (MDRD) Af Amer 105, Est GFR (MDRD) Non-Af 87, BUN/Creatinine Ratio 13.5, Glucose 125 H, Calcium 7.6 L, Total Bilirubin 0.80, Direct Bilirubin 0.19, AST 186 H, ALT 138 H, Alkaline Phosphatase 118 H, Total Protein 6.8, Albumin 3.3, Globulin 3.5 08/21/19 16:25: Ethyl Alcohol 357.0 H* 08/22/19 06:45: WBC Cancelled, Corrected WBC Cancelled, RBC Cancelled, Hgb Cancelled, Hct Cancelled, MCV Cancelled, MCH Cancelled, MCHC Cancelled, RDW Std Deviation Cancelled, RDW Coeff of Jeremy Cancelled, Plt Count Cancelled, MPV Cancelled, Immature Gran % (Auto) Cancelled, Neut % (Auto) Cancelled, Lymph % (Auto) Cancelled, Charles % (Auto) Cancelled, Eos % (Auto) Cancelled, Baso % (Auto) Cancelled, Absolute Neuts (auto) Cancelled, Absolute Lymphs (auto) Cancelled, Total Counted Cancelled, Neutrophils % (Manual) Cancelled, Band Neutrophils % Cancelled, Lymphocytes % (Manual) Cancelled, Monocytes % (Manual) Cancelled, Eosinophils % (Manual) Cancelled, Basophils % (Manual) Cancelled, Metamyelocytes % Cancelled, Myelocytes % Cancelled, Promyelocytes % Cancelled, Blast Cells % Cancelled, Plasma Cell % (Manual) Cancelled, Other Cells % Cancelled, Nucleated RBC % Cancelled, Nucleated RBCs/100 WBC Cancelled, Differential Comment Cancelled, Diff Path Review Cancelled, Hypersegmented Neuts Cancelled, Atypical Lymphocytes Cancelled, Reactive Lymphocytes Cancelled, Smudge Cells Cancelled, Toxic Granulation Cancelled, Toxic Vacuolation Cancelled, Dohle Bodies Cancelled, Sean Rods Cancelled, Platelet Estimate Cancelled, Plt Morphology Comment Cancelled, RBC Morphology Cancelled, Polychromasia Cancelled, Hypochromasia Cancelled, Poikilocytosis Cancelled, Basophilic Stippling Cancelled, Anisocytosis Cancelled, Microcytosis Cancelled, Macrocytosis Cancelled, Spherocytes Cancelled, Sickle Cells Cancelled, Target Cells Cancelled, Tear Drop Cells Cancelled, Ovalocytes Cancelled, Stomatocytes Cancelled, Jain-Limon Bodies Cancelled, Maria De Jesus Cells Cancelled, Bite Cells Cancelled, Crenated Cell Cancelled, Acanthocytes (Spur) Cancelled, Rouleaux Cancelled, Schistocytes Cancelled 08/22/19 06:45: Sodium 138, Potassium 3.8, Chloride 106, Carbon Dioxide 23.0, Anion Gap 9, BUN 16, Creatinine 0.97, Estim Creat Clear Calc 88.07, Est GFR (MDRD) Af Amer 104, Est GFR (MDRD) Non-Af 86, BUN/Creatinine Ratio 16.5, Glucose 116 H, Calcium 7.4 L, Magnesium 2.1, Total Bilirubin 1.00, AST 189 H, ALT 150 H, Alkaline Phosphatase 126 H, Total Protein 7.0, Albumin 3.4, Globulin 3.6, Albumin/Globulin Ratio 0.9 08/22/19 06:45: PT 19.7 H, INR 1.7 Current Medications Acetaminophen (Tylenol) 650 mg PO Q6H PRN PRN PRN Reason: Pain Score 1-10/Temp > 100.7 F Last Admin: 08/22/19 01:00 Dose: 650 mg Documented by: Al Hydroxide/Mg Hydroxide (Mylanta Ii) 30 ml PO Q6H PRN PRN PRN Reason: Gastric Burning Albuterol Sulfate (Ventolin Aerosols) 2.5 mg INHALATION Q2H PRN PRN PRN Reason: SOB &/OR WHEEZING Amlodipine Besylate (Norvasc) 10 mg PO DAILY [facility] Last Admin: 08/22/19 08:35 Dose: 10 mg Documented by: Atenolol (Tenormin (Beta Mariela)) 25 mg PO BID [facility] Last Admin: 08/22/19 08:35 Dose: 25 mg Documented by: Dextrose (D50w Syringe) 0 gm IV X1 PRN; Protocol PRN Reason: Hypoglycemia Dicyclomine HCl (Bentyl) 20 mg PO Q6H PRN PRN PRN Reason: abdominal discomfort Enoxaparin Sodium (Lovenox) 40 mg SC DAILY [facility] Last Admin: 08/22/19 08:36 Dose: 40 mg Documented by: Folic Acid (Folic Acid) 1 mg PO DAILY@0800 [facility] Last Admin: 08/22/19 08:35 Dose: 1 mg Documented by: Gabapentin (Neurontin) 300 mg PO Q8H PRN PRN PRN Reason: moderate to severe anxiety Last Admin: 08/22/19 04:08 Dose: 300 mg Documented by: Glucagon () 1 mg IM .X1 PRN PRN Reason: Hypoglycemia Hydroxyzine Pamoate (Vistaril Pamoate Capsule) 50 mg PO Q4H PRN PRN PRN Reason: mild anxiety Last Admin: 08/22/19 01:01 Dose: 50 mg Documented by: Loperamide HCl (Imodium) 2 mg PO Q4H PRN PRN PRN Reason: LOOSE STOOLS Lorazepam (Ativan) 2 mg PO Q2H PRN PRN; Protocol PRN Reason: CIWA score > 8 but <15 Lorazepam (Ativan) 2 mg PO UD PRN; Protocol PRN Reason: CIWA score >/=15. Last Admin: 08/22/19 08:35 Dose: 2 mg Documented by: Lorazepam (Ativan) 2 mg IV Q2H PRN PRN; Protocol PRN Reason: CIWA score > 8 but <15 Last Admin: 08/21/19 20:08 Dose: 2 mg Documented by: Lorazepam (Ativan) 2 mg IV UD PRN; Protocol PRN Reason: CIWA score >/=15. Last Admin: 08/22/19 07:40 Dose: 2 mg Documented by: Melatonin (Melatonin) 3 mg PO QHS PRN PRN PRN Reason: INSOMNIA Nystatin (Mycostatin Powder) 1 applic TOPICAL BID [facility]IER; Protocol Last Admin: 08/22/19 08:36 Dose: 1 applicatio Documented by: Ondansetron HCl (Zofran Odt) 8 mg PO Q8H PRN PRN PRN Reason: NAUSEA Last Admin: 08/22/19 07:32 Dose: 8 mg Documented by: Phenobarbital (Phenobarbital) 97.2 mg PO Q4H LIVIER; Taper Stop: 08/26/19 04:14 Last Admin: 08/22/19 08:35 Dose: 97.2 mg Documented by: Sodium Chloride () 10 - 40 ml IV UD PRN PRN Reason: SALINE FLUSH Last Admin: 08/22/19 08:36 Dose: 10 ml Documented by: Thiamine HCl (Vitamin B1) 200 mg PO DAILYCM L[facility]IER Stop: 08/25/19 08:01 Last Admin: 08/22/19 08:36 Dose: 200 mg Documented by: Trazodone HCl (Desyrel) 100 mg PO QHS PRN PRN Reason: INSOMNIA STROKE Vital Signs/Narrative: Vital Signs Temp Pulse Resp BP Pulse Ox 08/22/19 08:35 97.5 F L 77 18 177/115 H 93 Medical Necessity - Tobacco Use Smoking Status: Current every day smoker Tobacco Use: Cigarettes Assessment/Plan All Active Problems Transaminitis (Acute) Isopropyl alcohol poisoning (Resolved) Suicide attempt (Resolved) OSMANI (acute kidney injury) (Resolved) Alcohol withdrawal (Acute) Patient is a 54-year-old gentleman with a history of chronic alcohol dependence with multiple admissions for alcohol withdrawal presented with significant tremors. An assessment of acute alcohol withdrawal made admitted to regular nursing floor for further management 1. Acute alcohol withdrawal -Admitted to regular nursing for medical stabilization using phenobarb. Counseled the patient on the need to follow-up with [facility] counseling services for long-term rehab 2. Questionable seizure ?Alcohol withdrawal seizure patient did receive Ativan currently and a seizure precautions 3. Hypertension - Blood pressure controlled, home medications continued with dose adjustment as needed 4. Morbid obesity with BMI of 40.1 ?Weight loss advised 5. Tobacco dependence - Counseled on cessation, offered nicotine patch for tobacco cravings 6. Acute alcoholic hepatitis Monitoring LFTs 7. DVT prophylaxis - Lovenox Inpatient E&M: 16516 Subs Hosp L3
[2019-08-22] MEDS: Dicyclomine 10 MG Capsule 20 MG PO (11:42)
--- NOTE | 2019-08-22 13:19 | ADDICTION ---
This verse writer attemtped to meet with patient in his room to complete ASAM assessment and begin discharge planning. Patient was asleep and did not respond to verbal que to wake. This verse writer will attempt to meet with patient tomorrow 08/23/2019.
[2019-08-23] VITALS (7 sets, daily range): BP systolic 129–160; BP diastolic 91–112; PULSE 77–83; RESP 18; TEMP 36.4–37.1; O2SAT 95–97
[2019-08-23] MEDS: LORazepam 1 MG Tablet 2 MG PO ×3 (04:13→17:51)
[2019-08-23] MEDS: Phenobarbital 32.4 MG Tablet 64.8 MG PO ×5 (04:13→20:01)
[2019-08-23] MEDS: Gabapentin 300 MG Capsule PO ×2 (04:13→16:47)
--- NOTE | 2019-08-23 07:44 | PCM.PN.HOSP ---
Patient Problems: Active and Suspected Problems Transaminitis (Acute) Reason for Visit: Acute alcohol withdrawal Subjective: Patient seen much more awake and coherent compared to the previous day. His blood pressure however remains uncontrolled Objective: GENERAL: Cooperative HEENT: Atraumatic; EYES; Anicteric, Normal Conjunctiva NECK; supple, normal thyroid, RESPIRATORY: Diminished to auscultation CARDIOVASCULAR: Regular S1 S2, GI: soft, normoactive bowel sounds, : No Renal angle tenderness; EXTREMITIES: No edema, no clubbing, MUSCULOSKELETAL: no muscle waisting NEURO: Awake; no lateralizing signs. SKIN: No Rash PSYCH; Flat affect Vitals/I&O's: Vital Signs Temp Pulse Resp BP Pulse Ox 97.5 F L 83 18 160/107 H 96 08/23/19 04:02 08/23/19 04:02 08/23/19 04:02 08/23/19 04:02 08/23/19 04:02 Oxygen Delivery Method Room Air Weight: 123.2 kg Body Mass Index (BMI) 40.1 Finger Stick Blood Glucose 98 Intake and Output for Last 24 Hours 08/21/19 08/22/19 08/23/19 23:59 23:59 23:59 Intake Total 600 / 600 800 / 800 Output Total 200 / 200 Balance 400 / 400 800 / 800 Laboratory Results 08/22/19 06:45: WBC Cancelled, Corrected WBC Cancelled, RBC Cancelled, Hgb Cancelled, Hct Cancelled, MCV Cancelled, MCH Cancelled, MCHC Cancelled, RDW Std Deviation Cancelled, RDW Coeff of Jeremy Cancelled, Plt Count Cancelled, MPV Cancelled, Immature Gran % (Auto) Cancelled, Neut % (Auto) Cancelled, Lymph % (Auto) Cancelled, Canyon % (Auto) Cancelled, Eos % (Auto) Cancelled, Baso % (Auto) Cancelled, Absolute Neuts (auto) Cancelled, Absolute Lymphs (auto) Cancelled, Total Counted Cancelled, Neutrophils % (Manual) Cancelled, Band Neutrophils % Cancelled, Lymphocytes % (Manual) Cancelled, Monocytes % (Manual) Cancelled, Eosinophils % (Manual) Cancelled, Basophils % (Manual) Cancelled, Metamyelocytes % Cancelled, Myelocytes % Cancelled, Promyelocytes % Cancelled, Blast Cells % Cancelled, Plasma Cell % (Manual) Cancelled, Other Cells % Cancelled, Nucleated RBC % Cancelled, Nucleated RBCs/100 WBC Cancelled, Differential Comment Cancelled, Diff Path Review Cancelled, Hypersegmented Neuts Cancelled, Atypical Lymphocytes Cancelled, Reactive Lymphocytes Cancelled, Smudge Cells Cancelled, Toxic Granulation Cancelled, Toxic Vacuolation Cancelled, Dohle Bodies Cancelled, Sean Rods Cancelled, Platelet Estimate Cancelled, Plt Morphology Comment Cancelled, RBC Morphology Cancelled, Polychromasia Cancelled, Hypochromasia Cancelled, Poikilocytosis Cancelled, Basophilic Stippling Cancelled, Anisocytosis Cancelled, Microcytosis Cancelled, Macrocytosis Cancelled, Spherocytes Cancelled, Sickle Cells Cancelled, Target Cells Cancelled, Tear Drop Cells Cancelled, Ovalocytes Cancelled, Stomatocytes Cancelled, Jain-Coalton Bodies Cancelled, Maria De Jesus Cells Cancelled, Bite Cells Cancelled, Crenated Cell Cancelled, Acanthocytes (Spur) Cancelled, Rouleaux Cancelled, Schistocytes Cancelled 08/22/19 06:45: Sodium 138, Potassium 3.8, Chloride 106, Carbon Dioxide 23.0, Anion Gap 9, BUN 16, Creatinine 0.97, Estim Creat Clear Calc 88.07, Est GFR (MDRD) Af Amer 104, Est GFR (MDRD) Non-Af 86, BUN/Creatinine Ratio 16.5, Glucose 116 H, Calcium 7.4 L, Magnesium 2.1, Total Bilirubin 1.00, AST 189 H, ALT 150 H, Alkaline Phosphatase 126 H, Total Protein 7.0, Albumin 3.4, Globulin 3.6, Albumin/Globulin Ratio 0.9 08/22/19 06:45: PT 19.7 H, INR 1.7 Current Medications Acetaminophen (Tylenol) 650 mg PO Q6H PRN PRN PRN Reason: Pain Score 1-10/Temp > 100.7 F Last Admin: 08/22/19 01:00 Dose: 650 mg Documented by: Al Hydroxide/Mg Hydroxide (Mylanta Ii) 30 ml PO Q6H PRN PRN PRN Reason: Gastric Burning Albuterol Sulfate (Ventolin Aerosols) 2.5 mg INHALATION Q2H PRN PRN PRN Reason: SOB &/OR WHEEZING Amlodipine Besylate (Norvasc) 10 mg PO DAILY [facility] Last Admin: 08/22/19 08:35 Dose: 10 mg Documented by: Atenolol (Tenormin (Beta Mariela)) 25 mg PO BID [facility] Last Admin: 08/22/19 20:05 Dose: 25 mg Documented by: Dextrose (D50w Syringe) 0 gm IV X1 PRN; Protocol PRN Reason: Hypoglycemia Dicyclomine HCl (Bentyl) 20 mg PO Q6H PRN PRN PRN Reason: abdominal discomfort Last Admin: 08/22/19 11:42 Dose: 20 mg Documented by: Enoxaparin Sodium (Lovenox) 40 mg SC DAILY [facility] Last Admin: 08/22/19 08:36 Dose: 40 mg Documented by: Folic Acid (Folic Acid) 1 mg PO DAILY@0800 [facility] Last Admin: 08/22/19 08:35 Dose: 1 mg Documented by: Gabapentin (Neurontin) 300 mg PO Q8H PRN PRN PRN Reason: moderate to severe anxiety Last Admin: 08/23/19 04:13 Dose: 300 mg Documented by: Glucagon () 1 mg IM .X1 PRN PRN Reason: Hypoglycemia Hydroxyzine Pamoate (Vistaril Pamoate Capsule) 50 mg PO Q4H PRN PRN PRN Reason: mild anxiety Last Admin: 08/22/19 21:18 Dose: 50 mg Documented by: Loperamide HCl (Imodium) 2 mg PO Q4H PRN PRN PRN Reason: LOOSE STOOLS Lorazepam (Ativan) 2 mg PO Q2H PRN PRN; Protocol PRN Reason: CIWA score > 8 but <15 Last Admin: 08/23/19 04:13 Dose: 2 mg Documented by: Lorazepam (Ativan) 2 mg PO UD PRN; Protocol PRN Reason: CIWA score >/=15. Last Admin: 08/22/19 11:42 Dose: 2 mg Documented by: Lorazepam (Ativan) 2 mg IV Q2H PRN PRN; Protocol PRN Reason: CIWA score > 8 but <15 Last Admin: 08/21/19 20:08 Dose: 2 mg Documented by: Lorazepam (Ativan) 2 mg IV UD PRN; Protocol PRN Reason: CIWA score >/=15. Last Admin: 08/22/19 07:40 Dose: 2 mg Documented by: Melatonin (Melatonin) 3 mg PO QHS PRN PRN PRN Reason: INSOMNIA Nystatin (Mycostatin Powder) 1 applic TOPICAL BID [facility]; Protocol Last Admin: 08/22/19 21:19 Dose: 1 applicatio Documented by: Ondansetron HCl (Zofran Odt) 8 mg PO Q8H PRN PRN PRN Reason: NAUSEA Last Admin: 08/22/19 07:32 Dose: 8 mg Documented by: Phenobarbital (Phenobarbital) 64.8 mg PO Q4H [facility]; Taper Stop: 08/26/19 04:14 Last Admin: 08/23/19 04:13 Dose: 64.8 mg Documented by: Sodium Chloride () 10 - 40 ml IV UD PRN PRN Reason: SALINE FLUSH Last Admin: 08/22/19 08:36 Dose: 10 ml Documented by: Thiamine HCl (Vitamin B1) 200 mg PO DAILYCM [facility] Stop: 08/25/19 08:01 Last Admin: 08/22/19 08:36 Dose: 200 mg Documented by: Trazodone HCl (Desyrel) 100 mg PO QHS PRN PRN Reason: INSOMNIA STROKE Vital Signs/Narrative: Vital Signs Temp Pulse Resp BP Pulse Ox 08/23/19 04:02 97.5 F L 83 18 160/107 H 96 Medical Necessity - Tobacco Use Smoking Status: Current every day smoker Tobacco Use: Cigarettes Assessment/Plan All Active Problems Transaminitis (Acute) Isopropyl alcohol poisoning (Resolved) Suicide attempt (Resolved) OSMANI (acute kidney injury) (Resolved) Alcohol withdrawal (Acute) Patient is a 54-year-old gentleman with a history of chronic alcohol dependence with multiple admissions for alcohol withdrawal presented with significant tremors. An assessment of acute alcohol withdrawal made admitted to regular nursing floor for further management 1. Acute alcohol withdrawal -Admitted to regular nursing for medical stabilization using phenobarb. Counseled the patient on the need to follow-up with [facility] services for long-term rehab 2. Questionable seizure ?Alcohol withdrawal seizure patient did receive Ativan currently and a seizure precautions 3. Hypertension - Blood pressure controlled, home medications continued with dose adjustment as needed ?08/23/2019: Patient blood pressure remains elevated added scheduled losartan in addition to PRN hydralazine 4. Morbid obesity with BMI of 40.1 ?Weight loss advised 5. Tobacco dependence - Counseled on cessation, offered nicotine patch for tobacco cravings 6. Acute alcoholic hepatitis Monitoring LFTs 7. DVT prophylaxis - Lovenox Inpatient E&M: 08584 Subs Hosp L2
[2019-08-23] MEDS: Thiamine Hydrochloride 100 MG Tablet 200 MG PO (08:29)
[2019-08-23] MEDS: Atenolol 25 MG Tablet PO (08:29)
[2019-08-23] MEDS: amLODIPine 10 MG Tablet PO (08:30)
[2019-08-23] MEDS: Nystatin Powder 15gm Bottle 1 APPLIC TOPICAL ×2 (08:30→20:06)
[2019-08-23] MEDS: Folic Acid 1 MG Tablet PO (08:30)
[2019-08-23] MEDS: Enoxaparin 40 MG/0.4 ML Syringe SC (08:30)
[2019-08-23] MEDS: Losartan Potassium 50 MG Tablet PO (13:26)
--- NOTE | 2019-08-23 14:12 | ADDICTION ---
This technical document writer met with patient in his room to conduct ASAM assessment and begin discharge planning. Patient was asleep upon this technical document writer's arrival and roused after multiple verbal prompts. He stated that he has a plan for discharge, going somewhere in [facility] and was not interested in this technical document writer's services at this time. This technical document writer requested to assess client's ASAM and he was agreeable to this. Patient was not agreeable to full assessment and continued to fall asleep throughout this technical document writer's attempts to assess ASAM. Patient refused discharge planning assistance as he already has a plan upon discharge. ASAM LOC Recommended 4.0 Medically Managed Intensive Inpatient Services Dimension1: Acute Intoxication and/or Withdrawal Potential: Patient reports a history of severe withdrawal symptoms including tremors/ seizure. Reports last use as 08/21/2019. Reports prior use of 1 gallon to 1.5 gallon of vodka per day. Dimension2: Biomedical Conditions/Complications Patient chart indicates the following health related concerns: Stroke, hypertension, reflux, alcohol withdrawal seizures and kidney stones Dimension3: Emotional, behavioral, cognitive conditions/complications Patient reported no mental health problems Dimension4: Readiness to Change Patient appears in the precontemplative stage of change as evidenced by lack of willingness to engage in assessment and discharge planning. He did not identify problem behaviors during this visit. Dimension5: Relapse, Continued use or Continued problem potential: Patient reports a history of relapse but did not provide further information. Dimension6: Recovery/Living Environment Patient did not finish this assessment.
--- NOTE | 2019-08-23 15:21 | NURSING ---
Patient states that he would like to leave AMA. 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 This RN performed a CIWA and it was 11. 2 mg Ativan PO given per orders. Janet from [facility] was still on floor and notified of patient wanting to leave. She states she will go back to talk with patient but according to her, the patient already has a friend who is planning to set up some OP therapy when he leaves. Patient Advocate called as well to come speak with patient.
--- NOTE | 2019-08-23 16:28 | NURSING ---
Patent is unsteady on feet. Wanting to leave AMA. Dr. Mccormick paged to discuss.
--- NOTE | 2019-08-23 16:33 | NURSING ---
Dr. Mccormick agrees that the patient is not safe to leave. Would like this RN to call patient's to come and talk with patient. This RN attempted to call patient's and there was no answer. Will attempt to call again.
--- NOTE | 2019-08-23 16:41 | NURSING ---
Patient is getting anxious regarding this RN not being able to get a hold of Jamilah, his . This RN tried to call Jamilah again but there was no answer. A message was left to call the floor.
--- NOTE | 2019-08-23 17:20 | NURSING ---
Patient on the phone with Jamilah at this time.
--- NOTE | 2019-08-23 17:21 | NURSING ---
Patient is speaking with Jamilah and on the phone while this RN in room. Jamilah is attempting to talk patient into staying to complete the program. This RN stressed the importance of staying for his safety.
--- NOTE | 2019-08-23 17:54 | NURSING ---
After patient spoke with Jamilah he states he would like to stay the night. He asked for something for anxiety and a nicotine patch. states he usually smokes [address] Mccormick paged with update and orders received. Will continue to monitor. He is currently at [employer] eating dinner. call light in reach.
--- NOTE | 2019-08-23 19:00 | NURSING ---
Patient is much more relaxed at this time. He is resting comfortably in bed. Resps easy and unlabored. VSS. Jamilah, patient's sig other updated.
[2019-08-23] MEDS: Losartan Potassium 25 MG Tablet PO (20:06)
[2019-08-23] MEDS: Atenolol 50 MG Tablet PO (20:06)
[2019-08-24] MEDS: Phenobarbital 32.4 MG Tablet 64.8 MG PO ×2 (00:21→03:37)
[2019-08-24 00:22] VITALS: BP 109/77; PULSE 73; RESP 18; TEMP 36.5; O2SAT 97
[2019-08-24 00:24] VITALS: BP 109/77; PULSE 73; RESP 18; TEMP 36.5; O2SAT 97
[2019-08-24] MEDS: Gabapentin 300 MG Capsule PO (01:03)
[2019-08-24 03:32] VITALS: BP 107/75; PULSE 80; RESP 18; TEMP 36.6; O2SAT 95
[2019-08-24 03:33] VITALS: BP 107/75; PULSE 80; RESP 18; TEMP 36.6; O2SAT 95
[2019-08-24] MEDS: LORazepam 1 MG Tablet 2 MG PO (03:37)
--- NOTE | 2019-08-24 07:53 | DCINST_ITS ---
- Discharge Diagnoses Current Active Problems: Current Active and Chronic Problems Transaminitis (Acute) You will use the following diet at home:: No restrictions Discharge Activity: May not drive while taking narcotic pain medications. Allergies/Adverse Reactions: Allergies amoxicillin [Amoxicillin] Allergy (Verified 08/21/19 17:42) Anaphylaxis Penicillins Allergy (Verified 08/21/19 17:42) Anaphylaxis Medications to take at Discharge Amlodipine [Norvasc] 10 mg PO DAILY 04/04/18 Atenolol [Tenormin (beta clem)] 25 mg PO BID 04/04/18 Losartan Potassium [Cozaar] 25 mg PO BID #120 tab 08/24/19 The following prescriptions were given: Losartan Potassium [Cozaar] 25 mg PO BID #120 tab Transmission Status: Pending to [id number] Primary Care Physician: Edison Shannon MD [Primary Care Provider] - Please follow up with your Primary Care Physician in: in 5-7 days Test Results: Test results from this visit will be discussed in further detail at your follow- up appointment, if applicable. Proposed Discharge Date: 08/24/19
--- NOTE | 2019-08-24 07:56 | PCM.DC.SUM ---
Discharge Date and Diagnosis Date of Admission: 08/21/19 Date of Discharge: 08/24/19 - Primary Discharge Diagnosis Acute Problems: Active Problems Transaminitis (Acute) - Secondary Discharge Diagnosis Chronic Problems: Chronic Problems DM type 2 (diabetes mellitus, type 2) (Chronic) Bipolar 1 disorder (Chronic) History of kidney stones (Chronic) Continuous chronic alcoholism (Chronic) up to 1 gallon vodka daily Tobacco use (Chronic) Psychiatric pseudoseizure (Chronic) Homelessness (Chronic) Benign essential hypertension (Chronic) Hospital Course and Treatment Operations: None Summary of Care Provided: Patient is a 54-year-old gentleman with a history of chronic alcohol dependence with multiple admissions for alcohol withdrawal presented with significant tremors. An assessment of acute alcohol withdrawal made admitted to regular nursing floor for further management 1. Acute alcohol withdrawal -Admitted to regular nursing for medical stabilization using phenobarb. Counseled the patient on the need to follow-up with [facility] services for long-term rehab -08/24/2019: Patient was discharged per his request this morning 2. Questionable seizure ?Alcohol withdrawal seizure patient did receive Ativan currently and a seizure precautions 3. Hypertension - Blood pressure controlled, home medications continued with dose adjustment as needed ?08/23/2019: Patient blood pressure remains elevated added scheduled losartan in addition to PRN hydralazine 4. Morbid obesity with BMI of 40.1 ?Weight loss advised 5. Tobacco dependence - Counseled on cessation, offered nicotine patch for tobacco cravings 6. Acute alcoholic hepatitis Monitoring LFTs 7. DVT prophylaxis - Lovenox - Physical Exam Vitals/I&O's: Vital Signs Temp Pulse Resp BP Pulse Ox 98 F 80 18 107/75 95 08/24/19 03:33 08/24/19 03:33 08/24/19 03:33 08/24/19 03:33 08/24/19 03:33 Oxygen Delivery Method Room Air Weight: 123.2 kg Body Mass Index (BMI) 40.1 Finger Stick Blood Glucose 98 Intake and Output for Last 24 Hours 08/22/19 08/23/19 08/24/19 23:59 23:59 23:59 Intake Total 600 / 600 1440 / 1882 884 / 884 Output Total 200 / 200 Balance 400 / 400 1440 / 1882 884 / 884 General: Alert Neck: Supple Neurological: Neuro grossly intact Psych/Mental Status: Flat Affect Current Medications Acetaminophen (Tylenol) 650 mg PO Q6H PRN PRN PRN Reason: Pain Score 1-10/Temp > 100.7 F Last Admin: 08/22/19 01:00 Dose: 650 mg Documented by: Al Hydroxide/Mg Hydroxide (Mylanta Ii) 30 ml PO Q6H PRN PRN PRN Reason: Gastric Burning Albuterol Sulfate (Ventolin Aerosols) 2.5 mg INHALATION Q2H PRN PRN PRN Reason: SOB &/OR WHEEZING Amlodipine Besylate (Norvasc) 10 mg PO DAILY [facility] Last Admin: 08/23/19 08:30 Dose: 10 mg Documented by: Atenolol (Tenormin (Beta Mariela)) 50 mg PO BID [facility] Last Admin: 08/23/19 20:06 Dose: 50 mg Documented by: Dextrose (D50w Syringe) 0 gm IV X1 PRN; Protocol PRN Reason: Hypoglycemia Dicyclomine HCl (Bentyl) 20 mg PO Q6H PRN PRN PRN Reason: abdominal discomfort Last Admin: 08/22/19 11:42 Dose: 20 mg Documented by: Enoxaparin Sodium (Lovenox) 40 mg SC DAILY [facility] Last Admin: 08/23/19 08:30 Dose: 40 mg Documented by: Folic Acid (Folic Acid) 1 mg PO DAILY@0800 [facility] Last Admin: 08/23/19 08:30 Dose: 1 mg Documented by: Gabapentin (Neurontin) 300 mg PO Q8H PRN PRN PRN Reason: moderate to severe anxiety Last Admin: 08/24/19 01:03 Dose: 300 mg Documented by: Glucagon () 1 mg IM .X1 PRN PRN Reason: Hypoglycemia Hydralazine HCl (Apresoline Iv) 10 mg IV Q4H PRN PRN PRN Reason: Hypertensive Emergency Hydroxyzine Pamoate (Vistaril Pamoate Capsule) 50 mg PO Q4H PRN PRN PRN Reason: mild anxiety Last Admin: 08/22/19 21:18 Dose: 50 mg Documented by: Loperamide HCl (Imodium) 2 mg PO Q4H PRN PRN PRN Reason: LOOSE STOOLS Lorazepam (Ativan) 2 mg PO Q2H PRN PRN; Protocol PRN Reason: CIWA score > 8 but <15 Last Admin: 08/24/19 03:37 Dose: 2 mg Documented by: Lorazepam (Ativan) 2 mg PO UD PRN; Protocol PRN Reason: CIWA score >/=15. Last Admin: 08/22/19 11:42 Dose: 2 mg Documented by: Lorazepam (Ativan) 2 mg IV Q2H PRN PRN; Protocol PRN Reason: CIWA score > 8 but <15 Last Admin: 08/21/19 20:08 Dose: 2 mg Documented by: Lorazepam (Ativan) 2 mg IV UD PRN; Protocol PRN Reason: CIWA score >/=15. Last Admin: 08/22/19 07:40 Dose: 2 mg Documented by: Losartan Potassium (Cozaar) 25 mg PO BID [facility] Last Admin: 08/23/19 20:06 Dose: 25 mg Documented by: Melatonin (Melatonin) 3 mg PO QHS PRN PRN PRN Reason: INSOMNIA Nicotine (Nicoderm Cq (Pbkc)) 21 mg TRANSDERM. DAILY [facility] Last Admin: 08/23/19 18:04 Dose: 21 mg Documented by: Nystatin (Mycostatin Powder) 1 applic TOPICAL BID [facility]; Protocol Last Admin: 08/23/19 20:06 Dose: 1 applicatio Documented by: Ondansetron HCl (Zofran Odt) 8 mg PO Q8H PRN PRN PRN Reason: NAUSEA Last Admin: 08/22/19 07:32 Dose: 8 mg Documented by: Phenobarbital (Phenobarbital) 64.8 mg PO Q6H [facility]; Taper Stop: 08/26/19 04:14 Last Admin: 08/24/19 03:37 Dose: 64.8 mg Documented by: Sodium Chloride () 10 - 40 ml IV UD PRN PRN Reason: SALINE FLUSH Last Admin: 08/22/19 08:36 Dose: 10 ml Documented by: Thiamine HCl (Vitamin B1) 200 mg PO DAILYCM [facility] Stop: 08/25/19 08:01 Last Admin: 08/23/19 08:29 Dose: 200 mg Documented by: Trazodone HCl (Desyrel) 100 mg PO QHS PRN PRN Reason: INSOMNIA Discharge Diet: No Restrictions Discharge Activity: May not drive while taking narcotic pain medications. Home Medications: Medications to take at Discharge Amlodipine [Norvasc] 10 mg PO DAILY 04/04/18 Atenolol [Tenormin (beta mariela)] 25 mg PO BID 04/04/18 Losartan Potassium [Cozaar] 25 mg PO BID #120 tab 08/24/19 Following Prescrptions Were Given to Patient: Losartan Potassium [Cozaar] 25 mg PO BID #120 tab Transmission Status: Received by [id number] Primary Care Physician: Edison Shannon MD [Primary Care Provider] - Please follow up with your Primary Care Physician in: in 5-7 days Disposition: Home Minutes spent on discharge:: 35 Patient Condition:: Stable Medical Necessity - Tobacco Use Smoking Status: Current every day smoker Tobacco Use: Cigarettes Meaningful Use Info Meaningful Use Diagnoses (Choose all that apply): None applicable Inpatient E&M: 51905 [facility]
[2019-08-24 08:00] VITALS: BP 126/89; PULSE 80; RESP 18; TEMP 36.9; O2SAT 98
--- NOTE | 2019-08-24 08:18 | NURSING ---
pt up at nurses desk wanting to leave now. Dr. Mccormick informed of wishes and dc order in. Sig-other called and will be here in about an hour. breakfast ordered and pt back to his room to wait.
== END 2019-08-24 09:05 | disposition home or self-care (01) | DRG 775 ==
LOC: ED 18:10 → MS3 19:32
PROVIDERS: Admitting Provider Internal Medicine; Emergency Provider Emergency Medicine; PCP Family Medicine; Visit Provider Internal Medicine
DX: F10.239 Alcohol dependence with withdrawal, unspecified (principal); I10 Essential (primary) hypertension; Z68.41 Body mass index [BMI] 40.0-44.9, adult; E66.01 Morbid (severe) obesity due to excess calories; K70.10 Alcoholic hepatitis without ascites; Z86.73 Personal history of transient ischemic attack (TIA), and cerebral infarction without residual deficits; K21.9 Gastro-esophageal reflux disease without esophagitis; F17.210 Nicotine dependence, cigarettes, uncomplicated; E11.9 Type 2 diabetes mellitus without complications; Z59.0 Homelessness; Z79.899 Other long term (current) drug therapy; D69.6 Thrombocytopenia, unspecified; R56.9 Unspecified convulsions
CPT/HCPCS: 36415; 80048; 80053; 80076; 80320; 83735; 85025; 85610; 99251; 99284; 99406; A4216; G0463; G0480

== ENCOUNTER 2020-02-25 12:27 | Inpatient (IN) | payer MEDICAID, SELFPAY ==
[2020-02-25] VITALS (9 sets, daily range): BP systolic 151–200; BP diastolic 82–109; PULSE 88–111; RESP 14–20; TEMP 36.2–36.7; O2SAT 93–99; BMI 41.3
--- NOTE | 2020-02-25 12:38 | ED.DCSUM_ITS ---
History of Present Illness Chief Complaint: Substance Abuse Informant: Patient Narrative: 34-year-old male with history of EtOH abuse presenting for detox. He states he typically drinks about 1.5 gallons per day of vodka. Patient states that he stopped drinking at 1130 last night and had 2 seizures at about 3 AM. He does have history of seizures with EtOH withdrawal. He believes his last detox was at [facility] about 9 months ago. He did last 6 months until he started drinking again. Patient denies any other medical problems. She did have recent surgery performed for bone spurs on his left shoulder. This was performed by Dr. Woodall at [facility]. He states he got his stitches out today prior to coming to the emergency room. They told him it was infected reportedly and sent him home. - Past Medical History (1) Alcohol withdrawal Status: Acute (2) Benign essential hypertension Status: Chronic (3) DM type 2 (diabetes mellitus, type 2) Status: Chronic (4) History of kidney stones Status: Chronic Past Medical History - Allergies and Home Meds Allergies/Adverse Reactions: Allergies amoxicillin [Amoxicillin] Allergy (Verified 02/25/20 12:29) Anaphylaxis Penicillins Allergy (Verified 02/25/20 12:29) Anaphylaxis Prior records reviewed: Yes Past Medical History: - - Reviewed in problem list Surgical History: no surgical history Lives: Spouse/ Significant Other Smoking Status: Current every day smoker Alcohol: Heavy Drugs: None - Family History Maternal Family History: Reports: No pertinent history Paternal Family History: Reports: Heart Disease Sibling Family History: Reports: No pertinent history Review of Systems General: Denies: Chills, Fever, Sweats Eyes: Denies: Visual changes - bilaterally, Diplopia ENT: Denies: Rhinorrhea, Sore throat Cardiovascular: Denies: Chest pain, Palpitations Respiratory: Denies: Dyspnea, Cough, Dyspnea on exertion Gastrointestinal: Denies: Abdominal pain, Nausea, Vomiting, Diarrhea, Constipation, Melena, Hematochezia, -, - Genitourinary: Denies: Dysuria, Hematuria, Frequency, -, - Musculoskeletal: Denies: Back pain, Extremity Pain Skin: Reports: Abscess - Left shoulder over incision sites., Wounds. Denies: Rash Neurological: Reports: - - Seizures this morning. Denies: Headache, Weakness, Numbness Psych: Denies: Depression, Anxiety, Suicidal thoughts, Suicidal ideations, -, - Physical Exam Vital Signs/Narrative: Vital Signs Temp Pulse Resp BP Pulse Ox 02/25/20 12:29 97.1 F L 105 H 18 162/88 H 93 General: Obese, No Acute Distress Head: Normocephalic, Atraumatic Eyes: Perrl, EOMI ENT: Moist mucous membranes, No rhinorrhea Cardiovascular: Regular rate, Regular rhythm Respiratory: No distress, CTA bilaterally Abdomen: Soft, Nontender Extremities: Tenderness - Fluctuance and erythema over her previous incision sites and left shoulder. Skin: Normal color, No rash. Negative for: Cyanosis, Diaphoresis, Jaundice Neurological: Alert, Oriented x3, Cranial nerves II-XII grossly intact Psychological: Normal affect, Normal Mood Diagnostic/Tx/Re-eval Clinical Impression(s) from Imaging Studies Upper Extremity CT 02/25/20 15:24 IMPRESSION: Probable abscess as noted. Lipomatous intramuscular nodule in the deltoid. Electronically Signed: Porter Escobar DO at 16:30 EST Tel [phone], Service support , Laboratory Data 02/25/20 02/25/20 02/25/20 12:53 12:53 12:53 WBC 5.0 RBC 4.32 L Hgb 14.7 Hct 42.4 MCV 98.1 H MCH 34.0 H MCHC 34.7 RDW Std Deviation 51.7 H RDW Coeff of Jeremy 14.3 Plt Count 97 L MPV 10.9 Immature Gran % (Auto) 0.600 Neut % (Auto) 60.9 Lymph % (Auto) 30.9 [place] % (Auto) 6.4 Eos % (Auto) 0.6 Baso % (Auto) 0.6 Absolute Neuts (auto) 3.1 Absolute Lymphs (auto) 1.55 Nucleated RBC % 0 Platelet Estimate SLT DEC PT Cancelled INR Cancelled Sodium 141 Potassium 3.3 L Chloride 102 Carbon Dioxide 25.0 Anion Gap 14 BUN 4 L Creatinine 0.80 Estim Creat Clear Calc 106.79 Est GFR (MDRD) Af Amer 129 Est GFR (MDRD) Non-Af 107 BUN/Creatinine Ratio 5.0 L Glucose 107 H Calcium 8.1 L Magnesium 1.9 Total Bilirubin 0.60 AST 108 H ALT 74 H Alkaline Phosphatase 134 H Total Protein 7.6 Albumin 3.7 Globulin 3.9 Albumin/Globulin Ratio 0.9 Urine Opiates Screen Urine Methadone Screen Ur Barbiturates Screen Ur Phencyclidine Scrn Ur Amphetamines Screen U Methamphetamin-MDMA U Benzodiazepines Scrn Urine Cocaine Screen U Cannabinoids Screen Ur Drug Screen Comment Ethyl Alcohol 02/25/20 02/25/20 02/25/20 12:53 13:12 13:24 WBC RBC Hgb Hct MCV MCH MCHC RDW Std Deviation RDW Coeff of Jeremy Plt Count MPV Immature Gran % (Auto) Neut % (Auto) Lymph % (Auto) [place] % (Auto) Eos % (Auto) Baso % (Auto) Absolute Neuts (auto) Absolute Lymphs (auto) Nucleated RBC % Platelet Estimate PT 13.7 INR 1.1 Sodium Potassium Chloride Carbon Dioxide Anion Gap BUN Creatinine Estim Creat Clear Calc Est GFR (MDRD) Af Amer Est GFR (MDRD) Non-Af BUN/Creatinine Ratio Glucose Calcium Magnesium Total Bilirubin AST ALT Alkaline Phosphatase Total Protein Albumin Globulin Albumin/Globulin Ratio Urine Opiates Screen NEGATIVE Urine Methadone Screen NEGATIVE Ur Barbiturates Screen NEGATIVE Ur Phencyclidine Scrn NEGATIVE Ur Amphetamines Screen NEGATIVE U Methamphetamin-MDMA NEGATIVE U Benzodiazepines Scrn POSITIVE H Urine Cocaine Screen NEGATIVE U Cannabinoids Screen POSITIVE H Ur Drug Screen Comment Ethyl Alcohol 340.0 H* - Medical Decision Making Patient seen and evaluated on arrival. His initial complaint was he drank too much and he wanted to detox alcohol. He states his last drink was about 11 last night. He started to have what his called seizures at home and about 3. He states he followed up outpatient to have his suture removed from knee incision site. He reports that they told him it was infected but did not put him on antibiotics. Lab work today shows no leukocytosis. Renal function is normal. Patient's EtOH is 340. His urine drug screen is positive for benzos and marijuana. Patient was initially to be accepted to [facility] however he does appear to have an abscess in his surgical site. We did call [facility] who stated that they have no beds available unless the patient is Covid positive. At this point patient was given a dose of vancomycin. A call was made to his surgeon Dr. Woodall and call back still pending. Patient will be signed out to incoming ED physician for management. Impression: 1. EtOH abuse 2. EtOH withdrawal 3. Surgical site abscess left shoulder ED Disposition - Plan for ED Patient:
[2020-02-25 13:10] LABS: Absolute Lymphocyte Count 1.55 X10^3/uL (0.83-4.51); Absolute Neutrophil Count 3.1 X10^3/uL (2.0-7.7); Basophil# 0.03 X10^3/uL; Basophil% 0.6 % (0-1); Eosinophil# 0.03 X10^3/uL; Eosinophils% 0.6 % (0-5); Hematocrit 42.4 % (40-54); Hemoglobin 14.7 g/dL (13.0-16.5); Lymphocyte # 1.55 X10^3/ul (4.0); Lymphocyte % 30.9 % (19-41); Mean Corp Hgb Conc 34.7 g/dL (32-36); Mean Corpuscular Volume 98.1 fL (80-94); Mean Platelet Vol. 10.9 fl (6.2-12.0); Monocyte# 0.32 X10^3/uL; Monocyte% 6.4 % (0-10); NRBC Flagged by Analyzer 0 % (0-5); Neutrophil # 3.05 X10^3/uL (2.7-7.7); Neutrophil % 60.9 % (47-70); POSITIVE COUNT YES; Platelet Count 97 K/mm3 (150-450); RBC Distribution Width CV 14.3 % (11.6-14.6); RBC Distribution Width SD 51.7 fl (35.1-43.9); Red Blood Count 4.32 M/mm3 (4.6-6.2)
[2020-02-25 13:13] LABS: Differential Indicated SCAN CRITERIA MET
[2020-02-25 13:23] LABS: ALB/GLOB Ratio 0.9 RATIO (0.9-2.4); AST(SGOT) 108 U/L (15-37); Alanine Aminotransfer ALT/SGPT 74 U/L (16-61); Albumin, Serum 3.7 g/dL (3.2-5.0); Alkaline Phosphatase 134 U/L (45-117); Anion Gap 14 (5-15); BUN 4 mg/dL (7-18); Calcium,Total 8.1 mg/dL (8.5-10.1); Chloride 102 mmol/L (98-107); EST Glomerular Filtration Rate 107 mL/min (>60); Est Glom Filt Rate - Afr Amer 129 mL/min (>60); Estimated Creatinine Clearance 106.79 ml/min; Globulin 3.9 g/dL (2.2-4.2); Glucose 107 mg/dL (74-106); Magnesium 1.9 mg/dL (1.6-2.6); Potassium 3.3 mmol/L (3.5-5.1); Protein, Total 7.6 g/dL (6.4-8.2); Sodium Level 141 mmol/L (136-145)
[2020-02-25 13:30] LABS: Platelet Estimate SLT DEC (ADEQ)
[2020-02-25 13:41] LABS: International Normalized Ratio 1.1; Prothrombin Time (Protime)PT. 13.7 SECONDS (11.7-14.9)
[2020-02-25 13:41] LABS: Amphetamine Urine VISTA NEGATIVE (<1000 ng/mL); Barbiturate Urine VISTA NEGATIVE (< 200 ng/mL); Benzodiazepine Urine VISTA POSITIVE (< 200 ng/mL); Cocaine Urine VISTA NEGATIVE (< 300 ng/mL); Ecstacy Urine VISTA NEGATIVE (< 500 ng/mL); Methadone Urine VISTA NEGATIVE (< 300 ng/mL); PCP Urine VISTA NEGATIVE (< 25 ng/mL); THC Urine VISTA POSITIVE (< 50 ng/mL); Vista UDS pH Range 6
--- NOTE | 2020-02-25 15:15 | ED.RN ---
DR ORTIZ AT BEDSIDE.
--- NOTE | 2020-02-25 15:24 | CT_ITS ---
STUDY: CT LEFT SHOULDER REASON FOR EXAM: Male, 54 years old. ROTATOR CUFF SURG LEFT SHOULDER X2 WEEKS AGO -- AREA NOW SWOLLEN,RED,PAINFUL -- HX-LUNG CA W/ RADIATION RADIATION DOSAGE (If Supplied By Facility): CTDIvol = ( 31.89 ) mGy, DLP = ( 767.16 ) mGycm TECHNIQUE: The patient was scanned in a multi detector CT scanner. High resolution transaxial imaging was performed with the administration of 100 cc ISOVUE-300 intravenous contrast material. Sagittal and coronal images were reconstructed. Individualized dose optimization techniques were used for this CT. COMPARISON: None. FINDINGS: Normal glenohumeral articulation. Normal glenoid rim, neck and visualized scapula. Normal humeral head, neck and tuberosities. Normal coracoid process. Normal visualized lateral clavicle. Normal acromioclavicular articulation. There is a Type II morphology (curved), with a neutral orientation. There is a 1.9 cm lipomatous nodule within the deltoid. A 6.4 x 4.2 x 2 cm collection is noted along the superior edge of the supraspinatus tendon just anterior to the acromium, likely an abscess. CT/Extremity Upper WITH Contrast IMPRESSION: Probable abscess as noted. Lipomatous intramuscular nodule in the deltoid. Electronically Signed: Porter Escobar DO at 16:30 EST Tel [phone], Service support ,
--- NOTE | 2020-02-25 15:26 | HP.PCM_ITS ---
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 use Diabetes mellitus complication status: without complication Qualified Code(s): E11.9 - Type 2 diabetes mellitus without complications (7) History of kidney stones Status: Chronic (8) Homelessness Status: Chronic (9) Psychiatric pseudoseizure Status: Chronic (10) Tobacco use Status: Chronic (11) OSMANI (acute kidney injury) Status: Resolved (12) Isopropyl alcohol poisoning Status: Resolved (13) Suicide attempt Status: Resolved History of Present Illness Date of Admission: 02/25/20 Chief Complaint: alcohol withdrawal The patient is a 54 year old M who is last drink of alcohol was 1130 last night. He feels like he is just hearing up from the inside. He states his stated that he had seizures last night an episode where he stopped breathing. He is nauseated and having vomiting feels tremulous. He wishes for treatment. Patient stated that he was sober after his last admission back in August but then started drinking again around December and has been drinking about a gallon and a half of liquor. 2 weeks ago, patient underwent left rotator cuff surgery at [facility]. Had natalie removed today and they told him it was infected. He states that his shoulder is feeling worse. [] Past Medical History Past Medical History (Chronic Problems): Chronic Problems Transaminitis (Chronic) DM type 2 (diabetes mellitus, type 2) (Chronic) Bipolar 1 disorder (Chronic) History of kidney stones (Chronic) Continuous chronic alcoholism (Chronic) up to 1 gallon vodka daily Tobacco use (Chronic) Psychiatric pseudoseizure (Chronic) Homelessness (Chronic) Benign essential hypertension (Chronic) Allergies amoxicillin [Amoxicillin] Allergy (Verified 02/25/20 12:29) Anaphylaxis Penicillins Allergy (Verified 02/25/20 12:29) Anaphylaxis Home Medications: Ambulatory Orders Medication Instructions Recorded Amlodipine [Norvasc] 10 mg PO DAILY 04/04/18 Atenolol [Tenormin (beta clem)] 25 mg PO BID 04/04/18 Losartan Potassium [Cozaar] 25 mg PO BID #120 tab 08/24/19 Surgical History: no surgical history Psychiatric History: Bipolar, Depression Lives: Spouse/ Significant Other Smoking Status: Current every day smoker Alcohol: Heavy Drugs: None - *Family History Maternal History Items: No pertinent history Paternal History Items: Heart Disease Sibling History Items: No pertinent history Review of Systems Constitutional: Reports: Chills, - - No COVID-19 contacts. Denies: Anorexia, Fever, Malaise, Weakness Eyes: Denies: Blurred vision, Double vision HEENT: Denies: Head Aches, Sinus Congestion, Sinus Drainage Cardiovascular: Denies: Chest Pain, Palpitations Respiratory: Denies: Cough, Shortness of breath at rest, Sputum production Gastrointestinal: Reports: Nausea, Vomiting Genitourinary: Denies: Dysuria Musculoskeletal: Reports: Shoulder Pain - Left shoulder pain Hematologic/ Lymphatic: Denies: Easy Bruising, Easy Bleeding Comment: All review of systems were negative except as mentioned above in the history of present illness and the other review of systems. VTE Information - Inpt Only VTE Present on Admission: No VTE Mechan Device Prophylaxis: None VTE Pharm Prophylaxis ordered?: No Patient Problems: Active and Suspected Problems Alcohol withdrawal (Acute) - Physical Exam Vitals/I&O's: Vital Signs Temp Pulse Resp BP Pulse Ox 36.2 C L 92 14 152/84 H 96 02/25/20 14:31 02/25/20 14:31 02/25/20 14:31 02/25/20 14:31 02/25/20 14:31 Oxygen Delivery Method Room Air Weight: 127.006 kg Body Mass Index (BMI) 41.3 Finger Stick Blood Glucose 98 General: Alert, Cooperative, No apparent distress HEENT: Atraumatic, Normocephalic Oral: Moist Mucosa, No Gingival or Mucosal Lesions/ Ulcerations Neck: No Nodes, Thyroid Normal Size and Texture Lungs: Clear to auscultation, Normal air movement, No rhonchi, No wheeze, No rales Cardiovascular: Regular rate, Regular Rhythm, Normal S1, Normal S2, No murmurs Abdomen: Bowel Sounds Present, Soft, Non Tender, Non-Distended, No Hepato- splenomegaly Extremities: No edema, No Calf Tenderness Skin: - - Erythema around the left shoulder incision with fluctuance. No dehiscence noted. Steri-Strips intact. Psych/Mental Status: Normal Affect, Appropriate Laboratory Results 02/25/20 12:53: WBC 5.0, RBC 4.32 L, Hgb 14.7, Hct 42.4, MCV 98.1 H, MCH 34.0 H, MCHC 34.7, RDW Std Deviation 51.7 H, RDW Coeff of Jeremy 14.3, Plt Count 97 L, MPV 10.9, Immature Gran % (Auto) 0.600, Neut % (Auto) 60.9, Lymph % (Auto) 30.9, [place] % (Auto) 6.4, Eos % (Auto) 0.6, Baso % (Auto) 0.6, Absolute Neuts (auto) 3.1, Absolute Lymphs (auto) 1.55, Nucleated RBC % 0, Platelet Estimate SLT 02/25/20 12:53: PT Cancelled, INR Cancelled 02/25/20 12:53: Sodium 141, Potassium 3.3 L, Chloride 102, Carbon Dioxide 25.0, Anion Gap 14, BUN 4 L, Creatinine 0.80, Estim Creat Clear Calc 106.79, Est GFR (MDRD) Af Amer 129, Est GFR (MDRD) Non-Af 107, BUN/Creatinine Ratio 5.0 L, Glucose 107 H, Calcium 8.1 L, Magnesium 1.9, Total Bilirubin 0.60, AST 108 H, ALT 74 H, Alkaline Phosphatase 134 H, Total Protein 7.6, Albumin 3.7, Globulin 3.9, Albumin/Globulin Ratio 0.9 02/25/20 12:53: Ethyl Alcohol 340.0 H* 02/25/20 13:12: Urine Opiates Screen NEGATIVE, Urine Methadone Screen NEGATIVE, Ur Barbiturates Screen NEGATIVE, Ur Phencyclidine Scrn NEGATIVE, Ur Amphetamines Screen NEGATIVE, U Methamphetamin-MDMA NEGATIVE, U Benzodiazepines Scrn POSITIVE H, Urine Cocaine Screen NEGATIVE, U Cannabinoids Screen POSITIVE H, Ur Drug Screen Comment 02/25/20 13:24: PT 13.7, INR 1.1 Current Medications Iopamidol (Contrast Allergy Safety Check) [address] [facility] Assessment/Plan All Active Problems Isopropyl alcohol poisoning (Resolved) Suicide attempt (Resolved) OSMANI (acute kidney injury) (Resolved) Alcohol withdrawal (Acute) 1. Acute alcohol withdrawal * Patient's alcohol level was 340. Patient's last consumption was at 2330 on February 24, 2020. * Patient's had told him that he has had seizures. Stated that he stopped breathing. Not sure if these were actual seizures given the recent alcohol consumption and him sleeping. May have been sleep apnea. * If patient stays here then the plan would be to initiate a phenobarbital taper as well as other agents to help with somatic complaints associated with his withdrawal * I had a very long conversation with him as he has had numerous hospitalizations here for alcohol withdrawal and one time consumed isopropyl alcohol. Talked to him that he needs to be active in his treatment and following up with people and counselors in [facility]. Patient is a part of his relapse was associated with him moving to [place] where he still lives. If patient does stay here then case management to facilitate outpatient programs for him to follow-up with. * Patient will be on thiamine and folate. 2. Left shoulder cellulitis * The area is fluctuant and I am concerned there may be an abscess in there. Is certainly red surrounding his incision. No dehiscence noted. * Patient had followed up and was told that it was infected when he had his natalie removed today. * Discussed with the emergency room physician and advised CAT scan. If there is no evidence of any abscess then we can admit here and start him on antibiotics with vancomycin, however, if there is not evidence of abscess then the patient will likely require being transferred to hospital where the [facility] covers such as [facility]. 3. Hypertension * Stable at this time. Continue with home medications 4. VTE prophylaxis: Patient will be high risk with the active infection so would initiate enoxaparin if the patient does stay here. Inpatient E&M: 51473 Init Hosp L2 - [place] [id number].
[2020-02-25] MEDS: LORazepam 2 MG/ML Syringe 1 MG IV ×2 (17:30→19:49)
[2020-02-25] MEDS: LORazepam 2 MG/ML Syringe IV (21:08)
--- NOTE | 2020-02-25 21:35 | CM.ED ---
SOCIAL WORK Patient being admitted for alcohol withdrawal management. Call to [facility] Treatment Navigator, Sahara to update on patient's admission. Sahara reports will update Lisa to complete assessment tomorrow. Plan: Admit to [facility], [facility]
[2020-02-25] MEDS: 0.9% Saline Lock 10 ML Syringe IV ×2 (22:49→23:25)
[2020-02-25] MEDS: Ondansetron 4 MG/2 ML Vial IV (22:49)
[2020-02-25] MEDS: amLODIPine 10 MG Tablet PO (23:37)
[2020-02-25] MEDS: Atenolol 25 MG Tablet PO (23:37)
[2020-02-25] MEDS: Losartan Potassium 25 MG Tablet PO (23:37)
[2020-02-25] MEDS: Phenobarbital 32.4 MG Tablet PO (23:38)
[2020-02-25] MEDS: Gabapentin 300 MG Capsule PO (23:38)
[2020-02-25] MEDS: traZODone 100 MG Tablet PO (23:38)
[2020-02-26] VITALS (22 sets, daily range): BP systolic 142–206; BP diastolic 77–157; PULSE 81–137; RESP 16–20; TEMP 36.3–37.1; O2SAT 88–99
--- NOTE | 2020-02-26 00:04 | PCS.PANDOC ---
PANDEMIC DOCUMENTATION INITIATED: Date: 02/25/2020 Time: 2229
--- NOTE | 2020-02-26 01:04 | PCM.RX.CS ---
Consult Pharmacy has been consulted to manage selected antiobiotic: Vancomycin Type of Consult: New start Labs: Sodium 141 mmol/L (136-145) 02/25/20 12:53 Potassium 3.3 mmol/L (3.5-5.1) L 02/25/20 12:53 Chloride 102 mmol/L (98-107) 02/25/20 12:53 Carbon Dioxide 25.0 mmol/L (21.0-32.0) 02/25/20 12:53 Anion Gap 14 (5-15) 02/25/20 12:53 BUN 4 mg/dL (7-18) L 02/25/20 12:53 Creatinine 0.80 mg/dL (0.70-1.30) 02/25/20 12:53 Est GFR (MDRD) Af Amer 129 mL/min (>60) 02/25/20 12:53 Est GFR (MDRD) Non-Af 107 mL/min (>60) 02/25/20 12:53 BUN/Creatinine Ratio 5.0 RATIO (10-20) L 02/25/20 12:53 Glucose 107 mg/dL (74-106) H 02/25/20 12:53 Goal Trough: 15-20 mcg/mL Pharmacy Plan for Drug Dosing: Pharmacy Service will continue to monitor and adjust dosing as required. Medications Vancomycin HCl 1,500 mg/ (Sodium Chloride) 530 mls @ 250 mls/hr IV Q8H LIVIER Discontinued Medications Vancomycin HCl 2,000 mg/ (Sodium Chloride) 540 mls @ 250 mls/hr IV X1 ONE Stop: 02/25/20 20:09 Last Admin: 02/25/20 20:33 Dose: Infused Documented by: Follow-Up Labs: Trough Vancomycin Labs to be done on [date and time ordered]: 02/25 @ 7694
[2020-02-26] MEDS: Dicyclomine 10 MG Capsule 20 MG PO (01:08)
[2020-02-26] MEDS: hydrOXYzine PAM 25 MG Capsule 50 MG PO ×2 (01:09→06:33)
[2020-02-26] MEDS: proMETHazine 25 MG/ML Syringe 12.5 MG IV ×3 (01:40→10:20)
[2020-02-26] MEDS: 0.9% Saline Lock 10 ML Syringe IV ×7 (01:41→15:10)
[2020-02-26] MEDS: LORazepam 2 MG/ML Syringe IV ×9 (02:16→20:31)
[2020-02-26] MEDS: Phenobarbital 32.4 MG Tablet PO ×3 (02:19→21:51)
[2020-02-26] MEDS: Ondansetron 8 MG Tablet PO (05:02)
[2020-02-26 06:02] LABS: Absolute Lymphocyte Count 0.73 X10^3/uL (0.83-4.51); Absolute Neutrophil Count 6.4 X10^3/uL (2.0-7.7); Basophil# 0.03 X10^3/uL; Basophil% 0.4 % (0-1); Eosinophil# 0.01 X10^3/uL; Eosinophils% 0.1 % (0-5); Hematocrit 43.3 % (40-54); Hemoglobin 14.2 g/dL (13.0-16.5); Lymphocyte # 0.73 X10^3/ul (4.0); Lymphocyte % 9.6 % (19-41); Mean Corp Hgb Conc 32.8 g/dL (32-36); Mean Corpuscular Hgb 32.6 pg (27.0-32.0); Mean Corpuscular Volume 99.5 fL (80-94); Mean Platelet Vol. 10.9 fl (6.2-12.0); Monocyte# 0.48 X10^3/uL; Monocyte% 6.3 % (0-10); NRBC Flagged by Analyzer 0 % (0-5); Neutrophil # 6.36 X10^3/uL (2.7-7.7); Neutrophil % 83.2 % (47-70); POSITIVE COUNT YES; Platelet Count 75 K/mm3 (150-450); RBC Distribution Width CV 14.4 % (11.6-14.6); RBC Distribution Width SD 52.3 fl (35.1-43.9); Red Blood Count 4.35 M/mm3 (4.6-6.2); White Blood Count 7.6 K/mm3 (4.4-11.0)
[2020-02-26 06:04] LABS: Differential Indicated SCAN CRITERIA MET
[2020-02-26 06:20] LABS: AST(SGOT) 117 U/L (15-37); Alanine Aminotransfer ALT/SGPT 73 U/L (16-61); Albumin, Serum 3.6 g/dL (3.2-5.0); Alkaline Phosphatase 136 U/L (45-117); Anion Gap 9 (5-15); BUN 4 mg/dL (7-18); BUN/Creat Ratio 5.6 RATIO (10-20); Calcium,Total 8.2 mg/dL (8.5-10.1); Chloride 101 mmol/L (98-107); Creatinine, Serum 0.72 mg/dL (0.70-1.30); EST Glomerular Filtration Rate 122 mL/min (>60); Est Glom Filt Rate - Afr Amer 147 mL/min (>60); Estimated Creatinine Clearance 118.65 ml/min; Globulin 3.5 g/dL (2.2-4.2); Glucose 107 mg/dL (74-106); Potassium 3.5 mmol/L (3.5-5.1); Protein, Total 7.1 g/dL (6.4-8.2); Sodium Level 138 mmol/L (136-145)
[2020-02-26 06:28] LABS: Differential Comment SCANNED
[2020-02-26] MEDS: hydrALAZINE 20 MG/ML Vial 10 MG IV ×3 (06:32→18:01)
[2020-02-26] MEDS: Loperamide 2 MG Capsule PO (06:33)
[2020-02-26] MEDS: Ondansetron 4 MG/2 ML Vial IV ×3 (07:15→19:39)
--- NOTE | 2020-02-26 10:37 | ADDICTION ---
This typewriters functional tester met with patient in his room to conduct ASAM, MSE and AUDIT assessments and to plan for discharge. Patient was alert upon this typewriters functional tester's arrival, however, received a dose of Ativan and fell asleep prior to completing all assessments. He reports that he plans to engage with [facility] for counseling after following up with his surgeon who completed shoulder surgery recently as he has an infection in his shoulder per his report. This typewriters functional tester will attempt to complete assessments and d/c plan on 02/26/2019.
--- NOTE | 2020-02-26 15:16 | CHAPLAIN ---
Type of Pastoral Visit _x__ Initial Visit ___ Follow-up Visit ___ On-call Visit ___ General Patient Visit ___ Spiritual Assessment ___ Family Conference ___ Bereavement ___ Rapid Response ___ Code Blue ___ Other (describe below) Pastoral Care Referral From ___ Patient ___ Family ___ Nurse ___ Physician ___ Dressing Machine Operator ___ Printing Supplies Sales Representative _x__ Other (describe below) Sacrament/Intervention ___ Active listening ___ Anointing ___ Temple ___ Bereavement ___ Communion ___ Shantel exploration ___ ___ Life review ___ Prayer ___ Reconciliation ___ Sacrament of Sick _x__ Supportive presence ___ Wedding ___ Other (describe below) Pastoral Comments introduced self and role of leach runner to patient; pt states he has had better times but that he doesn't need anything right now; RN came into room to do procedure at this time
[2020-02-26] MEDS: 0.9% Normal Saline 1,000 ML 125 ML IV ×2 (16:04→23:56)
[2020-02-26] MEDS: cloNIDine HCl 0.2 MG Tablet PO ×2 (16:04→21:51)
--- NOTE | 2020-02-26 18:06 | PN_ITS ---
Patient Problems: Active and Suspected Problems Alcohol withdrawal (Acute) Subjective: Patient was seen and examined today, he was confused and actively going through alcohol withdrawal, he was hallucinating at times. I examined his left shoulder area, there is some swelling over the left shoulder area where his recent surgery was carried out, the area is warm to the touch but I do not feel that it is likely infected, this may be a hematoma or seroma. I have elected to stop his vancomycin at this time and observe him, his white count has remained normal and he has been afebrile. Patient has been having emesis today, I was not able to place him on oral medications, I have made him clear liquids only. We have had problems with his blood pressure today and he has been getting IV Apresoline and I also placed him sublingual Catapres. - Physical Exam Vitals/I&O's: Vital Signs Temp Pulse Resp BP Pulse Ox 98.6 F 88 18 194/98 H 99 02/26/20 17:55 02/26/20 17:55 02/26/20 17:55 02/26/20 17:55 02/26/20 17:55 Oxygen Flow Rate (L/min) 2 Oxygen Delivery Method Nasal Cannula Weight: 127 kg Body Mass Index (BMI) 41.3 Finger Stick Blood Glucose 98 Intake and Output for Last 24 Hours 02/24/20 02/25/20 02/26/20 23:59 23:59 23:59 Intake Total 840 / 840 1963 / 1964 Output Total 400 / 400 Balance 840 / 840 1564 / 1564 General: Well developed, Well nourished, Confused, Disoriented HEENT: Atraumatic, PERRLA, EOMI, Normocephalic Oral: Moist Mucosa Neck: Supple, No JVD, Trachea Midline, Thyroid Normal Size and Texture Lungs: Clear to auscultation, Normal air movement, No rhonchi, No wheeze, No rales Cardiovascular: Regular rate, Regular Rhythm, Normal S1, Normal S2, No murmurs, PMI Normal, No rub noted, No Gallop Abdomen: Bowel Sounds Present, Soft, Non Tender, Non-Distended Extremities: No clubbing, No cyanosis, No edema, Capillary Refill Less than 3 Seconds Skin: - - There is a reddened warm area that is fluctuant over the patient's left anterior shoulder area, this area is approximately 4 to 6 cm in diameter, no drainage is noted from the area. Musculoskeletal: No Muscle Wasting Neurological: Cranial nerves II-XII grossly intact, Neuro grossly intact, Sensory exam intact to light touch and pain Psych/Mental Status: Hallucinations, - - Patient is confused and restless at ti [facility] Laboratory Results 02/26/20 05:38: WBC 7.6, RBC 4.35 L, Hgb 14.2, Hct 43.3, MCV 99.5 H, MCH 32.6 H, MCHC 32.8 D, RDW Std Deviation 52.3 H, RDW Coeff of Jeremy 14.4, Plt Count 75 L, MPV 10.9, Immature Gran % (Auto) 0.400, Neut % (Auto) 83.2 H, Lymph % (Auto) 9.6 L, [place] % (Auto) 6.3, Eos % (Auto) 0.1, Baso % (Auto) 0.4, Absolute Neuts (auto) 6.4, Absolute Lymphs (auto) 0.73 L, Nucleated RBC % 0, Differential Comment SCANNED 02/26/20 05:38: Sodium 138, Potassium 3.5, Chloride 101, Carbon Dioxide 28.0, Anion Gap 9, BUN 4 L, Creatinine 0.72, Estim Creat Clear Calc 118.65, Est GFR (MDRD) Af Amer 147, Est GFR (MDRD) Non-Af 122, BUN/Creatinine Ratio 5.6 L, Glucose 107 H, Calcium 8.2 L, Total Bilirubin 1.30 H, AST 117 H, ALT 73 H, Alkaline Phosphatase 136 H, Total Protein 7.1, Albumin 3.6, Globulin 3.5, Albumin/Globulin Ratio 1.0 Current Medications Acetaminophen (Acetaminophen 325 Mg Tablet) 650 mg PO Q6H PRN PRN PRN Reason: Pain Score 1-10/Temp > 100.7 F Amlodipine Besylate (Amlodipine 10 Mg Tablet) 10 mg PO DAILY [facility] Last Admin: 02/26/20 15:58 Dose: Not Given Documented by: Atenolol (Atenolol 25 Mg Tablet) 25 mg PO BID [facility] Last Admin: 02/26/20 15:58 Dose: Not Given Documented by: Clonidine (Clonidine Hcl 0.2 Mg Tablet) 0.2 mg PO BID [facility] Last Admin: 02/26/20 16:04 Dose: 0.2 mg Documented by: Dicyclomine HCl (Dicyclomine 10 Mg Capsule) 20 mg PO Q6H PRN PRN PRN Reason: abdominal discomfort Last Admin: 02/26/20 01:08 Dose: 20 mg Documented by: Folic Acid (Folic Acid 1 Mg Tablet) 1 mg PO DAILY@0800 [facility] Last Admin: 02/26/20 08:35 Dose: Not Given Documented by: Gabapentin (Gabapentin 300 Mg Capsule) 300 mg PO Q8H PRN PRN PRN Reason: moderate to severe anxiety Last Admin: 02/25/20 23:38 Dose: 300 mg Documented by: Hydralazine HCl (Hydralazine 20 Mg/Ml Vial) 10 mg IV Q4H PRN PRN PRN Reason: BLOOD PRESSURE Last Admin: 02/26/20 11:37 Dose: 10 mg Documented by: Hydroxyzine Pamoate (Hydroxyzine Desi 25 Mg Capsule) 50 mg PO Q4H PRN PRN PRN Reason: mild anxiety Last Admin: 02/26/20 06:33 Dose: 50 mg Documented by: Vancomycin IV Pharmacy to Dose (1 ea/ Sodium Chloride) 500 mls @ 250 mls/hr IV X1 PRN; Protocol PRN Reason: Rx to Dose Sodium Chloride () 250 mls @ 15 mls/hr IV .[id number] PRN PRN Reason: Saline Flush Sodium Chloride () 250 mls @ 15 mls/hr IV .[id number] PRN PRN Reason: Additional IVPB Infusion Vancomycin HCl 1,500 mg/ (Sodium Chloride) 530 mls @ 250 mls/hr IV Q8H [facility] Last Infusion: 02/26/20 12:34 Dose: Infused Documented by: Sodium Chloride () 1,000 mls @ 125 mls/hr IV .Q8H [facility] Last Admin: 02/26/20 16:04 Dose: 125 mls/hr Documented by: Loperamide HCl (Loperamide 2 Mg Capsule) 2 mg PO Q4H PRN PRN PRN Reason: LOOSE STOOLS Last Admin: 02/26/20 06:33 Dose: 2 mg Documented by: Lorazepam (Lorazepam 1 Mg Tablet) 2 - 4 mg PO Q2H PRN PRN; Protocol PRN Reason: CIWA score > 8 but <15 Lorazepam (Lorazepam 1 Mg Tablet) 2 - 4 mg PO UD PRN; Protocol PRN Reason: CIWA score >/=15. Lorazepam (Lorazepam 2 Mg/Ml Syringe) 2 - 4 mg IV Q2H PRN PRN; Protocol PRN Reason: CIWA score > 8 but <15 Last Admin: 02/26/20 13:57 Dose: 2 mg Documented by: Lorazepam (Lorazepam 2 Mg/Ml Syringe) 2 - 4 mg IV UD PRN; Protocol PRN Reason: CIWA score >/=15. Last Admin: 02/26/20 16:04 Dose: 2 mg Documented by: Losartan Potassium (Losartan Potassium 25 Mg Tablet) 25 mg PO BID [facility] Last Admin: 02/26/20 15:56 Dose: Not Given Documented by: Ondansetron HCl (Ondansetron 8 Mg Tablet) 8 mg PO Q8H PRN PRN PRN Reason: NAUSEA Last Admin: 02/26/20 05:02 Dose: 8 mg Documented by: Ondansetron HCl (Ondansetron 4 Mg/2 Ml Vial) 4 mg IV Q4H PRN PRN PRN Reason: NAUSEA/VOMITING Last Admin: 02/26/20 15:10 Dose: 4 mg Documented by: Phenobarbital (Phenobarbital 32.4 Mg Tablet) 97.2 mg PO Q4H [facility]; Taper Stop: 03/01/20 06:44 Last Admin: 02/26/20 16:00 Dose: Not Given Documented by: Promethazine HCl (Promethazine 25 Mg/Ml Syringe) 12.5 mg IV Q4H PRN PRN PRN Reason: NAUSEA/VOMITING Last Admin: 02/26/20 10:20 Dose: 12.5 mg Documented by: Sodium Chloride (0.9% Saline Lock 10 Ml Syringe) 10 - 40 ml IV UD PRN PRN Reason: SALINE FLUSH Last Admin: 02/26/20 15:10 Dose: 10 ml Documented by: Thiamine HCl (Thiamine Hydrochloride 100 Mg Tablet) 100 mg PO DAILYCM [facility] Last Admin: 02/26/20 08:36 Dose: Not Given Documented by: Trazodone HCl (Trazodone 100 Mg Tablet) 100 mg PO QHS PRN PRN PRN Reason: INSOMNIA Last Admin: 02/25/20 23:38 Dose: 100 mg Documented by: Medical Necessity - Tobacco Use Smoking Status: Current every day smoker Assessment/Plan All Active Problems Isopropyl alcohol poisoning (Resolved) Suicide attempt (Resolved) OSMANI (acute kidney injury) (Resolved) Alcohol withdrawal (Acute) #1 acute DTs from alcohol withdrawal-patient will be given IV Ativan as needed, he will not be able to take phenobarbital due to repeated emesis today. #2 warm fluctuant area over the patient's left anterior shoulder area, patient had recent bone spurs taken off the left shoulder, I think this is likely either a seroma or hematoma. At this time I have elected not to treat the patient with IV antibiotics. His temperature will be monitored and CBC will be repeated tomorrow #3 chronic alcoholism #4 essential hypertension-patient will be given IV antihypertensive medication in addition to Catapres sublingual #5 morbid obesity #6 history of bipolar disorder Inpatient E&M: 56412 Subs Hosp L2
[2020-02-26 19:51] LABS: Bedside Glucose 108 mg/dL (70-110)
--- NOTE | 2020-02-26 20:01 | NURSING ---
nurse from Dr Riki Woodall, [facility] orthopedic surgeon, called. provided pt update. per nurse, pt was intoxicated yesterday in office and surgeon removed natalie, surgeon did not think that shoulder was infected but ordered keflex for pt to start. discussed CT results and treating with erick. pt is to have follow up appointment scheduled 03/07/2020. office number is [phone] with extension for RN [phone]
[2020-02-26] MEDS: Atenolol 25 MG Tablet PO (21:51)
[2020-02-26] MEDS: Losartan Potassium 25 MG Tablet PO (21:51)
[2020-02-27] VITALS (17 sets, daily range): BP systolic 124–175; BP diastolic 77–104; PULSE 76–96; RESP 12–22; TEMP 36.8–37.2; O2SAT 95–99
[2020-02-27] MEDS: Phenobarbital 32.4 MG Tablet PO ×6 (02:07→22:11)
[2020-02-27] MEDS: hydrALAZINE 20 MG/ML Vial 10 MG IV ×2 (03:29→20:50)
[2020-02-27] MEDS: LORazepam 2 MG/ML Syringe IV ×7 (03:36→23:35)
[2020-02-27] MEDS: Ipratropium/Albuterol Sulfate 3 ML AMPUL.NEB INHALATION ×3 (05:30→11:22)
[2020-02-27] MEDS: Thiamine Hydrochloride 100 MG Tablet PO (08:34)
[2020-02-27] MEDS: Losartan Potassium 25 MG Tablet PO ×2 (08:34→21:22)
[2020-02-27] MEDS: cloNIDine HCl 0.2 MG Tablet PO ×2 (08:34→21:22)
[2020-02-27] MEDS: Folic Acid 1 MG Tablet PO (08:35)
[2020-02-27] MEDS: Atenolol 25 MG Tablet PO ×2 (08:35→21:22)
[2020-02-27] MEDS: amLODIPine 10 MG Tablet PO (08:35)
--- NOTE | 2020-02-27 08:50 | RAD_ITS ---
STUDY: X-RAY CHEST REASON FOR EXAM: Male, 54 years old. HYPOXIA, ALCOHOL WITHDRAWAL TECHNIQUE: Single AP portable view of the chest. COMPARISON: 04/10/2018 FINDINGS: The lungs are clear and expanded. There is no demonstrated pleural abnormality. Normal size heart. Normal mediastinum and bridget. Normal visualized pulmonary arteries. Normal visualized aortic arch and descending thoracic aorta. Normal visualized thoracic spine. Normal visualized ribs, clavicles, and shoulders. There is no demonstrated abnormality of the visualized soft tissue structures of the upper abdomen. RAD/Chest 1 View (Portable) IMPRESSION: Normal x-ray examination of the chest. Electronically Signed: Sudhir Harrington MD at 13:48 EST Tel , Service support ,
--- NOTE | 2020-02-27 10:17 | ADDICTION ---
This commercial lines underwriter attempted to meet with pt in his room. Pt requested that we meet tomorrow. This commercial lines underwriter will attempt to meet with pt on 02/27/2019 to complete assessments and d/c plan.
[2020-02-27] MEDS: 0.9% Normal Saline 1,000 ML 50 ML IV (12:25)
--- NOTE | 2020-02-27 18:48 | PCM.PROGNOTE ---
Patient Problems: Active and Suspected Problems Alcohol withdrawal (Acute) Subjective: Patient was seen and examined today, he is more calm today than he was yesterday, he is not delusional to this examiner today, he is able to carry on conversation he does not appear to be overly anxious. Going to try to advance the patient's diet today if possible. - Physical Exam Vitals/I&O's: Vital Signs Temp Pulse Resp BP Pulse Ox 98.2 F 82 18 146/97 H 99 02/27/20 14:37 02/27/20 15:05 02/27/20 14:37 02/27/20 14:37 02/27/20 14:37 Oxygen Flow Rate (L/min) 2 Oxygen Delivery Method Nasal Cannula Weight: 128 kg Body Mass Index (BMI) 41.3 Finger Stick Blood Glucose 98 Intake and Output for Last 24 Hours 02/25/20 02/26/20 02/27/20 23:59 23:59 23:59 Intake Total 840 / 840 2947.33 / 3047.33 1370.00 / 1370.00 Output Total 600 / 600 300 / 300 Balance 840 / 840 2347.33 / 2447.33 1070.00 / 1070.00 General: Alert, Cooperative, No apparent distress, Well developed HEENT: Atraumatic, PERRLA, EOMI, Normocephalic Oral: Moist Mucosa Neck: Supple, No JVD, Trachea Midline, Thyroid Normal Size and Texture Lungs: Clear to auscultation, Normal air movement, No rhonchi, No wheeze, No rales Cardiovascular: Regular rate, Regular Rhythm, Normal S1, Normal S2, No murmurs, PMI Normal, No rub noted, No Gallop Abdomen: Bowel Sounds Present, Soft, Non Tender, Non-Distended, Obese Extremities: No clubbing, No cyanosis, No edema, Capillary Refill Less than 3 Seconds Skin: No rashes, No breakdown Musculoskeletal: No Tenderness to Palpation of Joints or Extremities Neurological: Cranial nerves II-XII grossly intact, Neuro grossly intact, Sensory exam intact to light touch and pain Psych/Mental Status: Normal Affect, Appropriate Laboratory Results 02/26/20 19:44: POC Glucose 108 Current Medications Acetaminophen (Acetaminophen 325 Mg Tablet) 650 mg PO Q6H PRN PRN PRN Reason: Pain Score 1-10/Temp > 100.7 F Albuterol Sulfate (Albuterol 2.5 Mg/3 Ml Vial.Neb.) 2.5 mg INHALATION Q2H PRN PRN PRN Reason: SOB &/OR WHEEZING Albuterol/Ipratropium (Ipratropium/Albuterol Sulfate 3 Ml Ampul.Neb) 3 ml INHALATION Q4HWA.RT [facility] Last Admin: 02/27/20 11:22 Dose: 3 ml Documented by: Amlodipine Besylate (Amlodipine 10 Mg Tablet) 10 mg PO DAILY [facility] Last Admin: 02/27/20 08:35 Dose: 10 mg Documented by: Atenolol (Atenolol 25 Mg Tablet) 25 mg PO BID [facility] Last Admin: 02/27/20 08:35 Dose: 25 mg Documented by: Clonidine (Clonidine Hcl 0.2 Mg Tablet) 0.2 mg PO BID [facility] Last Admin: 02/27/20 08:34 Dose: 0.2 mg Documented by: Dicyclomine HCl (Dicyclomine 10 Mg Capsule) 20 mg PO Q6H PRN PRN PRN Reason: abdominal discomfort Last Admin: 02/26/20 01:08 Dose: 20 mg Documented by: Folic Acid (Folic Acid 1 Mg Tablet) 1 mg PO DAILY@0800 [facility] Last Admin: 02/27/20 08:35 Dose: 1 mg Documented by: Gabapentin (Gabapentin 300 Mg Capsule) 300 mg PO Q8H PRN PRN PRN Reason: moderate to severe anxiety Last Admin: 02/25/20 23:38 Dose: 300 mg Documented by: Hydralazine HCl (Hydralazine 20 Mg/Ml Vial) 10 mg IV Q4H PRN PRN PRN Reason: BLOOD PRESSURE Last Admin: 02/27/20 03:29 Dose: 10 mg Documented by: Hydroxyzine Pamoate (Hydroxyzine Desi 25 Mg Capsule) 50 mg PO Q4H PRN PRN PRN Reason: mild anxiety Last Admin: 02/26/20 06:33 Dose: 50 mg Documented by: Sodium Chloride () 250 mls @ 15 mls/hr IV .[id number] PRN PRN Reason: Saline Flush Sodium Chloride () 250 mls @ 15 mls/hr IV .[id number] PRN PRN Reason: Additional IVPB Infusion Sodium Chloride () 1,000 mls @ 50 mls/hr IV .Q20H [facility] Last Admin: 02/27/20 12:25 Dose: 50 mls/hr Documented by: Loperamide HCl (Loperamide 2 Mg Capsule) 2 mg PO Q4H PRN PRN PRN Reason: LOOSE STOOLS Last Admin: 02/26/20 06:33 Dose: 2 mg Documented by: Lorazepam (Lorazepam 1 Mg Tablet) 2 - 4 mg PO Q2H PRN PRN; Protocol PRN Reason: CIWA score > 8 but <15 Lorazepam (Lorazepam 1 Mg Tablet) 2 - 4 mg PO UD PRN; Protocol PRN Reason: CIWA score >/=15. Lorazepam (Lorazepam 2 Mg/Ml Syringe) 2 - 4 mg IV Q2H PRN PRN; Protocol PRN Reason: CIWA score > 8 but <15 Last Admin: 02/27/20 14:25 Dose: 2 mg Documented by: Lorazepam (Lorazepam 2 Mg/Ml Syringe) 2 - 4 mg IV UD PRN; Protocol PRN Reason: CIWA score >/=15. Last Admin: 02/26/20 16:04 Dose: 2 mg Documented by: Losartan Potassium (Losartan Potassium 25 Mg Tablet) 25 mg PO BID [facility] Last Admin: 02/27/20 08:34 Dose: 25 mg Documented by: Ondansetron HCl (Ondansetron 8 Mg Tablet) 8 mg PO Q8H PRN PRN PRN Reason: NAUSEA Last Admin: 02/26/20 05:02 Dose: 8 mg Documented by: Ondansetron HCl (Ondansetron 4 Mg/2 Ml Vial) 4 mg IV Q4H PRN PRN PRN Reason: NAUSEA/VOMITING Last Admin: 02/26/20 19:39 Dose: 4 mg Documented by: Phenobarbital (Phenobarbital 32.4 Mg Tablet) 64.8 mg PO Q4H [facility]; Taper Stop: 03/01/20 06:44 Last Admin: 02/27/20 14:28 Dose: 64.8 mg Documented by: Promethazine HCl (Promethazine 25 Mg/Ml Syringe) 12.5 mg IV Q4H PRN PRN PRN Reason: NAUSEA/VOMITING Last Admin: 02/26/20 10:20 Dose: 12.5 mg Documented by: Sodium Chloride (0.9% Saline Lock 10 Ml Syringe) 10 - 40 ml IV UD PRN PRN Reason: SALINE FLUSH Last Admin: 02/26/20 15:10 Dose: 10 ml Documented by: Thiamine HCl (Thiamine Hydrochloride 100 Mg Tablet) 100 mg PO DAILYCM [facility] Last Admin: 02/27/20 08:34 Dose: 100 mg Documented by: Trazodone HCl (Trazodone 100 Mg Tablet) 100 mg PO QHS PRN PRN PRN Reason: INSOMNIA Last Admin: 02/25/20 23:38 Dose: 100 mg Documented by: Medical Necessity - Tobacco Use Smoking Status: Current every day smoker Assessment/Plan All Active Problems Isopropyl alcohol poisoning (Resolved) Suicide attempt (Resolved) OSMANI (acute kidney injury) (Resolved) Alcohol withdrawal (Acute) #1 acute DTs from alcohol withdrawal-this appears to be resolving at this time, patient is now on oral phenobarb in addition to as needed Ativan #2 warm fluctuant area over the patient's left anterior shoulder area, patient had recent bone spurs taken off the left shoulder, I think this is likely either a seroma or hematoma. I will continue to observe this area, I do not think the patient needs to be on antibiotics #3 chronic alcoholism #4 essential hypertension-patient's blood pressure is improved today, he remains on oral blood pressure medications #5 morbid obesity #6 history of bipolar disorder Inpatient E&M: 815[address] [facility] Hosp L2
[2020-02-27] MEDS: Ondansetron 4 MG/2 ML Vial IV (20:50)
[2020-02-28] VITALS (11 sets, daily range): BP systolic 126–155; BP diastolic 79–95; PULSE 74–84; RESP 18–20; TEMP 36.7–37.1; O2SAT 92–96
[2020-02-28] MEDS: LORazepam 2 MG/ML Syringe IV ×9 (01:43→22:45)
[2020-02-28] MEDS: Phenobarbital 32.4 MG Tablet PO ×4 (03:11→18:35)
[2020-02-28] MEDS: Albuterol 2.5 MG/3 ML VIAL.NEB. INHALATION (04:15)
[2020-02-28] MEDS: 0.9% Normal Saline 1,000 ML 50 ML IV ×2 (06:05→22:42)
[2020-02-28] MEDS: Losartan Potassium 25 MG Tablet PO ×2 (09:11→20:37)
[2020-02-28] MEDS: Thiamine Hydrochloride 100 MG Tablet PO (09:11)
[2020-02-28] MEDS: cloNIDine HCl 0.2 MG Tablet PO ×2 (09:11→20:37)
[2020-02-28] MEDS: Folic Acid 1 MG Tablet PO (09:11)
[2020-02-28] MEDS: amLODIPine 10 MG Tablet PO (09:12)
[2020-02-28] MEDS: Atenolol 25 MG Tablet PO ×2 (09:12→20:37)
[2020-02-28] MEDS: 0.9% Saline Lock 10 ML Syringe IV ×2 (10:08→16:46)
--- NOTE | 2020-02-28 14:27 | CPS ---
patient was placed om 2L throughout the night
[2020-02-28] MEDS: LORazepam 1 MG Tablet PO (18:35)
--- NOTE | 2020-02-28 19:06 | NURSING ---
LATE ENTRY - 1700 - SPOKE WITH PT'S LALITO STAPLETON - UPDATING HER ON PT.
--- NOTE | 2020-02-28 19:07 | PCM.PROGNOTE ---
Patient Problems: Active and Suspected Problems Alcohol withdrawal (Acute) Subjective: Patient was seen and examined today, he appears restless at times but responds well to Ativan as needed. He made a comment to me about his picking him up and taking him to an inpatient rehab facility for detox, this is obviously not true. At the time of this dictation, patient is on room air. Objective: General: Alert, Cooperative, No apparent distress, Well developed, there is some mild confusion present HEENT: Atraumatic, PERRLA, EOMI, Normocephalic Oral: Moist Mucosa Neck: Supple, No JVD, Trachea Midline, Thyroid Normal Size and Texture Lungs: Clear to auscultation, Normal air movement, No rhonchi, No wheeze, No rales Cardiovascular: Regular rate, Regular Rhythm, Normal S1, Normal S2, No murmurs, PMI Normal, No rub noted, No Gallop Abdomen: Bowel Sounds Present, Soft, Non Tender, Non-Distended, Obese Extremities: No clubbing, No cyanosis, No edema, Capillary Refill Less than 3 Seconds Skin: No rashes, No breakdown Musculoskeletal: No Tenderness to Palpation of Joints or Extremities Neurological: Cranial nerves II-XII grossly intact, Neuro grossly intact, Sensory exam intact to light touch and pain Psych/Mental Status: Flat affect, some mild confusion is noted, patient responds to some questions appropriately. - Physical Exam Vitals/I&O's: Vital Signs Temp Pulse Resp BP Pulse Ox 98.7 F 76 20 H 126/81 H 94 02/28/20 16:47 02/28/20 16:47 02/28/20 16:47 02/28/20 16:47 02/28/20 16:47 Oxygen Flow Rate (L/min) 2 Oxygen Delivery Method Room Air Weight: 128.6 kg Body Mass Index (BMI) 41.3 Finger Stick Blood Glucose 98 Intake and Output for Last 24 Hours 02/26/20 02/27/20 02/28/20 23:59 23:59 23:59 Intake Total 2947.33 / 3047.33 1370.00 / 1520.00 1543.33 / 1543.33 Output Total 600 / 600 300 / 300 Balance 2347.33 / 2447.33 1070.00 / 1220.00 1543.33 / 1543.33 Current Medications Acetaminophen (Acetaminophen 325 Mg Tablet) 650 mg PO Q6H PRN PRN PRN Reason: Pain Score 1-10/Temp > 100.7 F Albuterol Sulfate (Albuterol 2.5 Mg/3 Ml Vial.Neb.) 2.5 mg INHALATION Q2H PRN PRN PRN Reason: SOB &/OR WHEEZING Last Admin: 02/28/20 04:15 Dose: 2.5 mg Documented by: Amlodipine Besylate (Amlodipine 10 Mg Tablet) 10 mg PO DAILY [facility] Last Admin: 02/28/20 09:12 Dose: 10 mg Documented by: Atenolol (Atenolol 25 Mg Tablet) 25 mg PO BID [facility] Last Admin: 02/28/20 09:12 Dose: 25 mg Documented by: Clonidine (Clonidine Hcl 0.2 Mg Tablet) 0.2 mg PO BID [facility] Last Admin: 02/28/20 09:11 Dose: 0.2 mg Documented by: Folic Acid (Folic Acid 1 Mg Tablet) 1 mg PO DAILY@0800 [facility] Last Admin: 02/28/20 09:11 Dose: 1 mg Documented by: Hydralazine HCl (Hydralazine 20 Mg/Ml Vial) 10 mg IV Q4H PRN PRN PRN Reason: BLOOD PRESSURE Last Admin: 02/27/20 20:50 Dose: 10 mg Documented by: Sodium Chloride () 250 mls @ 15 mls/hr IV .[id number] PRN PRN Reason: Saline Flush Sodium Chloride () 250 mls @ 15 mls/hr IV .[id number] PRN PRN Reason: Additional IVPB Infusion Sodium Chloride () 1,000 mls @ 50 mls/hr IV .Q20H [facility] Last Admin: 02/28/20 06:05 Dose: 50 mls/hr Documented by: Loperamide HCl (Loperamide 2 Mg Capsule) 2 mg PO Q4H PRN PRN PRN Reason: LOOSE STOOLS Last Admin: 02/26/20 06:33 Dose: 2 mg Documented by: Lorazepam (Lorazepam 1 Mg Tablet) 2 - 4 mg PO Q2H PRN PRN; Protocol PRN Reason: CIWA score > 8 but <15 Lorazepam (Lorazepam 1 Mg Tablet) 2 - 4 mg PO UD PRN; Protocol PRN Reason: CIWA score >/=15. Last Admin: 02/28/20 18:35 Dose: 4 mg Documented by: Lorazepam (Lorazepam 2 Mg/Ml Syringe) 2 - 4 mg IV Q2H PRN PRN; Protocol PRN Reason: CIWA score > 8 but <15 Last Admin: 02/28/20 16:46 Dose: 4 mg Documented by: Lorazepam (Lorazepam 2 Mg/Ml Syringe) 2 - 4 mg IV UD PRN; Protocol PRN Reason: CIWA score >/=15. Last Admin: 02/28/20 03:57 Dose: 4 mg Documented by: Losartan Potassium (Losartan Potassium 25 Mg Tablet) 25 mg PO BID [facility] Last Admin: 02/28/20 09:11 Dose: 25 mg Documented by: Ondansetron HCl (Ondansetron 4 Mg/2 Ml Vial) 4 mg IV Q4H PRN PRN PRN Reason: NAUSEA/VOMITING Last Admin: 02/27/20 20:50 Dose: 4 mg Documented by: Phenobarbital (Phenobarbital 32.4 Mg Tablet) 64.8 mg PO Q6H [facility]; Taper Stop: 03/01/20 06:44 Last Admin: 02/28/20 18:35 Dose: 64.8 mg Documented by: Sodium Chloride (0.9% Saline Lock 10 Ml Syringe) 10 - 40 ml IV UD PRN PRN Reason: SALINE FLUSH Last Admin: 02/28/20 16:46 Dose: 10 ml Documented by: Thiamine HCl (Thiamine Hydrochloride 100 Mg Tablet) 100 mg PO DAILYCM [facility] Last Admin: 02/28/20 09:11 Dose: 100 mg Documented by: Trazodone HCl (Trazodone 100 Mg Tablet) 100 mg PO QHS PRN PRN PRN Reason: INSOMNIA Last Admin: 02/25/20 23:38 Dose: 100 mg Documented by: Medical Necessity - Tobacco Use Smoking Status: Current every day smoker Assessment/Plan All Active Problems Isopropyl alcohol poisoning (Resolved) Suicide attempt (Resolved) OSMANI (acute kidney injury) (Resolved) Alcohol withdrawal (Acute) #1 acute DTs from alcohol withdrawal-this appears to be resolving at this time, patient is now on oral phenobarb in addition to as needed Ativan, 180 will need to talk with the patient for discharge planning #2 Seroma left shoulder #3 chronic alcoholism #4 essential hypertension-patient's blood pressure is proved but elevated, I will review the patient's blood pressure medications #5 morbid obesity #6 history of bipolar disorder Inpatient E&M: 65081 Subs Hosp L2
[2020-02-29] VITALS (7 sets, daily range): BP systolic 131–168; BP diastolic 61–110; PULSE 73–84; RESP 18–20; TEMP 36.4–36.9; O2SAT 93–96
[2020-02-29] MEDS: Phenobarbital 32.4 MG Tablet PO ×6 (00:44→23:46)
[2020-02-29] MEDS: LORazepam 2 MG/ML Syringe IV ×4 (00:50→08:07)
[2020-02-29] MEDS: 0.9% Normal Saline 1,000 ML 50 ML IV (06:38)
[2020-02-29] MEDS: amLODIPine 10 MG Tablet PO (08:05)
[2020-02-29] MEDS: Folic Acid 1 MG Tablet PO (08:05)
[2020-02-29] MEDS: Atenolol 25 MG Tablet PO ×2 (08:05→21:17)
[2020-02-29] MEDS: Thiamine Hydrochloride 100 MG Tablet PO (08:05)
[2020-02-29] MEDS: cloNIDine HCl 0.2 MG Tablet PO ×2 (08:05→21:18)
[2020-02-29] MEDS: Losartan Potassium 50 MG Tablet PO ×2 (08:07→21:18)
[2020-02-29] MEDS: LORazepam 1 MG Tablet PO ×7 (09:56→23:42)
--- NOTE | 2020-02-29 10:09 | ADDICTION ---
This tech writer met with patient in his room, by his physician's request, to continue to discuss d/c plan. Pt was confused but did communicate to his best ability. Pt states that he wants Residential treatment now. He is not medically appropriate for discharge per his nurse and is not psychiatrically approprate as evidenced by confused, muddled thinking and ongoing behavioral symptoms of alcohol detox. Nurse reported that PT will remain at [facility] until medically stable and that this tech writer could f/u on Tuesday with him. This tech writer will f/u on 03/03/20.
[2020-02-29] MEDS: Ondansetron ODT 4 MG Tablet 8 MG PO (15:15)
--- NOTE | 2020-02-29 16:19 | PCM.PROGNOTE ---
Patient Problems: Active and Suspected Problems Alcohol withdrawal (Acute) Subjective: Patient was seen and examined today, he remains intermittently confused, he is still having periods of agitation has to be medicated with Ativan. He is still on a taper dose of phenobarbital at this time. Patient's blood pressure is under better control at the time of this dictation. 180 social media marketing specialist was unable to talk to the patient to the discussed discharge planning due to the fact that he is confused. Objective: General: Lethargic, Cooperative, No apparent distress, Well developed, patient exhibits confusion HEENT: Atraumatic, PERRLA, EOMI, Normocephalic Oral: Moist Mucosa Neck: Supple, No JVD, Trachea Midline, Thyroid Normal Size and Texture Lungs: Clear to auscultation, Normal air movement, No rhonchi, No wheeze, No rales Cardiovascular: Regular rate, Regular Rhythm, Normal S1, Normal S2, No murmurs, PMI Normal, No rub noted, No Gallop Abdomen: Bowel Sounds Present, Soft, Non Tender, Non-Distended, Obese Extremities: No clubbing, No cyanosis, No edema, Capillary Refill Less than 3 Seconds Skin: No rashes, No breakdown Musculoskeletal: No Tenderness to Palpation of Joints or Extremities Neurological: Cranial nerves II-XII grossly intact, Neuro grossly intact, Sensory exam intact to light touch and pain Psych/Mental Status: Flat affect, patient is confused at this time - Physical Exam Vitals/I&O's: Vital Signs Temp Pulse Resp BP Pulse Ox 98.3 F 73 18 131/81 H 96 02/29/20 14:22 02/29/20 14:22 02/29/20 14:22 02/29/20 14:22 02/29/20 14:22 Oxygen Flow Rate (L/min) 2 Oxygen Delivery Method Room Air Weight: 128.6 kg Body Mass Index (BMI) 41.3 Finger Stick Blood Glucose 98 Intake and Output for Last 24 Hours 02/27/20 02/28/20 02/29/20 23:59 23:59 23:59 Intake Total 1370.00 / 1520.00 2374.16 / 2374.16 937.50 / 937.50 Output Total 300 / 300 Balance 1070.00 / 1220.00 2374.16 / 2374.16 937.50 / 937.50 Current Medications Acetaminophen (Acetaminophen 325 Mg Tablet) 650 mg PO Q6H PRN PRN PRN Reason: Pain Score 1-10/Temp > 100.7 F Albuterol Sulfate (Albuterol 2.5 Mg/3 Ml Vial.Neb.) 2.5 mg INHALATION Q2H PRN PRN PRN Reason: SOB &/OR WHEEZING Last Admin: 02/28/20 04:15 Dose: 2.5 mg Documented by: Amlodipine Besylate (Amlodipine 10 Mg Tablet) 10 mg PO DAILY [facility] Last Admin: 02/29/20 08:05 Dose: 10 mg Documented by: Atenolol (Atenolol 25 Mg Tablet) 25 mg PO BID [facility] Last Admin: 02/29/20 08:05 Dose: 25 mg Documented by: Clonidine (Clonidine Hcl 0.2 Mg Tablet) 0.2 mg PO BID [facility] Last Admin: 02/29/20 08:05 Dose: 0.2 mg Documented by: Folic Acid (Folic Acid 1 Mg Tablet) 1 mg PO DAILY@0800 [facility] Last Admin: 02/29/20 08:05 Dose: 1 mg Documented by: Hydralazine HCl (Hydralazine 20 Mg/Ml Vial) 10 mg IV Q4H PRN PRN PRN Reason: BLOOD PRESSURE Last Admin: 02/27/20 20:50 Dose: 10 mg Documented by: Sodium Chloride () 250 mls @ 15 mls/hr IV .[id number] PRN PRN Reason: Saline Flush Sodium Chloride () 250 mls @ 15 mls/hr IV .[id number] PRN PRN Reason: Additional IVPB Infusion Sodium Chloride () 1,000 mls @ 50 mls/hr IV .Q20H [facility] Last Infusion: 02/29/20 09:30 Dose: Infused Documented by: Loperamide HCl (Loperamide 2 Mg Capsule) 2 mg PO Q4H PRN PRN PRN Reason: LOOSE STOOLS Last Admin: 02/26/20 06:33 Dose: 2 mg Documented by: Lorazepam (Lorazepam 1 Mg Tablet) 2 - 4 mg PO Q2H PRN PRN; Protocol PRN Reason: CIWA score > 8 but <15 Lorazepam (Lorazepam 1 Mg Tablet) 2 - 4 mg PO UD PRN; Protocol PRN Reason: CIWA score >/=15. Last Admin: 02/29/20 14:30 Dose: 4 mg Documented by: Lorazepam (Lorazepam 2 Mg/Ml Syringe) 2 - 4 mg IV Q2H PRN PRN; Protocol PRN Reason: CIWA score > 8 but <15 Last Admin: 02/29/20 05:03 Dose: 4 mg Documented by: Lorazepam (Lorazepam 2 Mg/Ml Syringe) 2 - 4 mg IV UD PRN; Protocol PRN Reason: CIWA score >/=15. Last Admin: 02/29/20 08:07 Dose: 4 mg Documented by: Losartan Potassium (Losartan Potassium 50 Mg Tablet) 50 mg PO BID [facility] Last Admin: 02/29/20 08:07 Dose: 50 mg Documented by: Ondansetron HCl (Ondansetron 4 Mg/2 Ml Vial) 4 mg IV Q4H PRN PRN PRN Reason: NAUSEA/VOMITING Last Admin: 02/27/20 20:50 Dose: 4 mg Documented by: Ondansetron HCl (Ondansetron Odt 4 Mg Tablet) 8 mg PO Q6H PRN PRN PRN Reason: NAUSEA/VOMITING Last Admin: 02/29/20 15:15 Dose: 8 mg Documented by: Phenobarbital (Phenobarbital 32.4 Mg Tablet) 32.4 mg PO Q6H [facility]; Taper Stop: 03/01/20 06:44 Last Admin: 02/29/20 12:23 Dose: 32.4 mg Documented by: Sodium Chloride (0.9% Saline Lock 10 Ml Syringe) 10 - 40 ml IV UD PRN PRN Reason: SALINE FLUSH Last Admin: 02/28/20 16:46 Dose: 10 ml Documented by: Thiamine HCl (Thiamine Hydrochloride 100 Mg Tablet) 100 mg PO DAILYCM [facility] Last Admin: 02/29/20 08:05 Dose: 100 mg Documented by: Trazodone HCl (Trazodone 100 Mg Tablet) 100 mg PO QHS PRN PRN PRN Reason: INSOMNIA Last Admin: 02/25/20 23:38 Dose: 100 mg Documented by: Medical Necessity - Tobacco Use Smoking Status: Current every day smoker Assessment/Plan All Active Problems Isopropyl alcohol poisoning (Resolved) Suicide attempt (Resolved) OSMANI (acute kidney injury) (Resolved) Alcohol withdrawal (Acute) #1 acute DTs from alcohol withdrawal-patient will continue to receive Ativan and phenobarbital, patient does not have an IV in presently. #2 Seroma left shoulder #3 chronic alcoholism #4 essential hypertension-patient's blood pressure is improved #5 morbid obesity #6 history of bipolar disorder Inpatient E&M: 41420 Subs Hosp L2
[2020-02-29] MEDS: traZODone 100 MG Tablet PO (21:17)
--- NOTE | 2020-02-29 21:56 | NURSING ---
setting off bedexit staff in to assist pt up on his knees naked having a bowel movement in the bed. hygiene and bedchange completed. bed exit on
[2020-03-01] VITALS (8 sets, daily range): BP systolic 133–173; BP diastolic 85–124; PULSE 73–80; RESP 15–18; TEMP 36.1–36.8; O2SAT 93–100
--- NOTE | 2020-03-01 01:30 | NURSING ---
bed exit going off 2 rns in to assist pt, pt had gotten out of bed quickly and slid down chair to floor witnessed by rns, left buttocks red, denies pain, denies any other injury, no extremity deficits. no change in mentation. pt had removed his clothing and attends and voided on his bed, pt withdrawing from etoh. assisted with hygiene and bed change, returned to bed. primary rn notified, nursing machinery repair maintenance supervisor notified. will notify
[2020-03-01] MEDS: LORazepam 1 MG Tablet PO ×5 (02:30→23:47)
[2020-03-01] MEDS: Folic Acid 1 MG Tablet PO (07:02)
[2020-03-01] MEDS: Thiamine Hydrochloride 100 MG Tablet PO (07:02)
[2020-03-01] MEDS: cloNIDine HCl 0.2 MG Tablet PO ×2 (09:05→23:25)
[2020-03-01] MEDS: amLODIPine 10 MG Tablet PO (09:05)
[2020-03-01] MEDS: Losartan Potassium 50 MG Tablet PO ×2 (09:06→23:25)
[2020-03-01] MEDS: Atenolol 25 MG Tablet PO ×2 (09:06→23:28)
--- NOTE | 2020-03-01 13:49 | CASEMGMT ---
LW/POA forms scanned into summary tab of echart. CRISTIAN Hernandez
[2020-03-01] MEDS: Phenobarbital 32.4 MG Tablet PO ×2 (15:22→23:25)
--- NOTE | 2020-03-01 17:11 | PN_ITS ---
Patient Problems: Active and Suspected Problems Alcohol withdrawal (Acute) Subjective: Patient was seen and examined today, I was not able to carry on a conversation with him as he was somnolent from receiving Ativan. Patient was tapered off his phenobarbital, I have made the decision that he should be placed back on it and we will try to lessen the amount of Ativan we are giving him. Patient's left shoulder area looks nonreddened and nonfluctuant. Objective: General: Lethargic, no apparent distress HEENT: Atraumatic, PERRLA, EOMI, Normocephalic Oral: Moist Mucosa Neck: Supple, No JVD, Trachea Midline, Thyroid Normal Size and Texture Lungs: Clear to auscultation, Normal air movement, No rhonchi, No wheeze, No rales Cardiovascular: Regular rate, Regular Rhythm, Normal S1, Normal S2, No murmurs, PMI Normal, No rub noted, No Gallop Abdomen: Bowel Sounds Present, Soft, Non Tender, Non-Distended, Obese Extremities: No clubbing, No cyanosis, No edema, Capillary Refill Less than 3 Seconds Skin: No rashes, No breakdown Musculoskeletal: No Tenderness to Palpation of Joints or Extremities Neurological: Cranial nerves II-XII grossly intact, Neuro grossly intact, Sensory exam intact to light touch and pain Psych/Mental Status: Patient is somnolent, he does respond to painful stimuli - Physical Exam Vitals/I&O's: Vital Signs Temp Pulse Resp BP Pulse Ox 97.7 F L 80 18 137/87 H 97 03/01/20 14:34 03/01/20 14:34 03/01/20 14:34 03/01/20 14:34 03/01/20 14:34 Oxygen Flow Rate (L/min) 2 Oxygen Delivery Method Room Air Weight: 126.28 kg Body Mass Index (BMI) 41.3 Finger Stick Blood Glucose 98 Intake and Output for Last 24 Hours 02/28/20 02/29/20 03/01/20 23:59 23:59 23:59 Intake Total 2374.16 / 2374.16 1537.50 / 1537.50 600 / 600 Output Total 450 / 450 250 / 250 Balance 2374.16 / 2374.16 1087.50 / 1087.50 350 / 350 Current Medications Acetaminophen (Acetaminophen 325 Mg Tablet) 650 mg PO Q6H PRN PRN PRN Reason: Pain Score 1-10/Temp > 100.7 F Albuterol Sulfate (Albuterol 2.5 Mg/3 Ml Vial.Neb.) 2.5 mg INHALATION Q2H PRN PRN PRN Reason: SOB &/OR WHEEZING Last Admin: 02/28/20 04:15 Dose: 2.5 mg Documented by: Amlodipine Besylate (Amlodipine 10 Mg Tablet) 10 mg PO DAILY [facility] Last Admin: 03/01/20 09:05 Dose: 10 mg Documented by: Atenolol (Atenolol 25 Mg Tablet) 25 mg PO BID [facility] Last Admin: 03/01/20 09:06 Dose: 25 mg Documented by: Clonidine (Clonidine Hcl 0.2 Mg Tablet) 0.2 mg PO BID [facility] Last Admin: 03/01/20 09:05 Dose: 0.2 mg Documented by: Folic Acid (Folic Acid 1 Mg Tablet) 1 mg PO DAILY@0800 [facility] Last Admin: 03/01/20 07:02 Dose: 1 mg Documented by: Hydralazine HCl (Hydralazine 10 Mg Tablet) 10 mg PO Q6H PRN PRN PRN Reason: BLOOD PRESSURE Sodium Chloride () 250 mls @ 15 mls/hr IV .[id number] PRN PRN Reason: Saline Flush Sodium Chloride () 250 mls @ 15 mls/hr IV .[id number] PRN PRN Reason: Additional IVPB Infusion Loperamide HCl (Loperamide 2 Mg Capsule) 2 mg PO Q4H PRN PRN PRN Reason: LOOSE STOOLS Last Admin: 02/26/20 06:33 Dose: 2 mg Documented by: Lorazepam (Lorazepam 1 Mg Tablet) 2 - 4 mg PO Q2H PRN PRN; Protocol PRN Reason: CIWA score > 8 but <15 Last Admin: 03/01/20 12:49 Dose: 4 mg Documented by: Lorazepam (Lorazepam 1 Mg Tablet) 2 - 4 mg PO UD PRN; Protocol PRN Reason: CIWA score >/=15. Last Admin: 03/01/20 07:02 Dose: 4 mg Documented by: Lorazepam (Lorazepam 2 Mg/Ml Syringe) 2 - 4 mg IV Q2H PRN PRN; Protocol PRN Reason: CIWA score > 8 but <15 Last Admin: 02/29/20 05:03 Dose: 4 mg Documented by: Lorazepam (Lorazepam 2 Mg/Ml Syringe) 2 - 4 mg IV UD PRN; Protocol PRN Reason: CIWA score >/=15. Last Admin: 02/29/20 08:07 Dose: 4 mg Documented by: Losartan Potassium (Losartan Potassium 50 Mg Tablet) 50 mg PO BID [facility] Last Admin: 03/01/20 09:06 Dose: 50 mg Documented by: Ondansetron HCl (Ondansetron 4 Mg/2 Ml Vial) 4 mg IV Q4H PRN PRN PRN Reason: NAUSEA/VOMITING Last Admin: 02/27/20 20:50 Dose: 4 mg Documented by: Ondansetron HCl (Ondansetron Odt 4 Mg Tablet) 8 mg PO Q6H PRN PRN PRN Reason: NAUSEA/VOMITING Last Admin: 02/29/20 15:15 Dose: 8 mg Documented by: Phenobarbital (Phenobarbital 32.4 Mg Tablet) 32.4 mg PO TID [facility] Sodium Chloride (0.9% Saline Lock 10 Ml Syringe) 10 - 40 ml IV UD PRN PRN Reason: SALINE FLUSH Last Admin: 02/28/20 16:46 Dose: 10 ml Documented by: Thiamine HCl (Thiamine Hydrochloride 100 Mg Tablet) 100 mg PO DAILYCM [facility] Last Admin: 03/01/20 07:02 Dose: 100 mg Documented by: Trazodone HCl (Trazodone 100 Mg Tablet) 100 mg PO QHS PRN PRN PRN Reason: INSOMNIA Last Admin: 02/29/20 21:17 Dose: 100 mg Documented by: Medical Necessity - Tobacco Use Smoking Status: Current every day smoker Assessment/Plan All Active Problems Isopropyl alcohol poisoning (Resolved) Suicide attempt (Resolved) OSMANI (acute kidney injury) (Resolved) Alcohol withdrawal (Acute) #1 acute DTs from alcohol withdrawal-patient will continue to receive Ativan and phenobarbital, 180 was not able to talk to the patient yesterday due to confusion, they will need to have a conversation with the patient on 03/03/2020 about his wishes concerning ongoing alcohol rehab #2 Seroma left shoulder #3 chronic alcoholism #4 essential hypertension-patient's blood pressure is improved #5 morbid obesity #6 history of bipolar disorder Inpatient E&M: 501[address] [facility] Hosp L2
[2020-03-01] MEDS: Acetaminophen 325 MG Tablet 650 MG PO (18:34)
[2020-03-01] MEDS: traZODone 100 MG Tablet PO (23:53)
[2020-03-02] VITALS (9 sets, daily range): BP systolic 114–154; BP diastolic 69–108; PULSE 68–77; RESP 15–18; TEMP 36.2–36.8; O2SAT 93–98
[2020-03-02] MEDS: Phenobarbital 32.4 MG Tablet PO ×3 (06:12→20:55)
[2020-03-02] MEDS: LORazepam 1 MG Tablet PO ×2 (06:26→10:31)
[2020-03-02] MEDS: Acetaminophen 325 MG Tablet 650 MG PO ×2 (06:26→12:06)
[2020-03-02] MEDS: Atenolol 25 MG Tablet PO ×2 (10:31→20:55)
[2020-03-02] MEDS: Losartan Potassium 50 MG Tablet PO ×2 (10:31→20:55)
[2020-03-02] MEDS: Folic Acid 1 MG Tablet PO (10:32)
[2020-03-02] MEDS: amLODIPine 10 MG Tablet PO (10:32)
[2020-03-02] MEDS: Thiamine Hydrochloride 100 MG Tablet PO (10:32)
[2020-03-02] MEDS: cloNIDine HCl 0.2 MG Tablet PO ×2 (10:32→20:55)
--- NOTE | 2020-03-02 15:54 | PCM.PROGNOTE ---
Patient Problems: Active and Suspected Problems Alcohol withdrawal (Acute) Subjective: Patient was seen and examined today, he appears more calm and lucid today. I talked with his girlfriend by phone today, she confirmed that he is taking no psychiatric medications in the last 2 years when he has been with her, she did not seem to know that he had a diagnosis of bipolar disorder-I am not sure how this was placed in his medical record. 180 was unable to talk with him yesterday due to clouded sensorium, today he appears to be more cognizant, 180 will have to talk with him tomorrow about outpatient plans for detox follow-up. - Physical Exam Vitals/I&O's: Vital Signs Temp Pulse Resp BP Pulse Ox 97.8 F 69 18 114/71 94 03/02/20 14:29 03/02/20 14:29 03/02/20 14:29 03/02/20 14:29 03/02/20 14:29 Oxygen Flow Rate (L/min) 2 Oxygen Delivery Method Room Air Weight: 126.552 kg Body Mass Index (BMI) 41.3 Finger Stick Blood Glucose 98 Intake and Output for Last 24 Hours 02/29/20 03/01/20 03/02/20 23:59 23:59 23:59 Intake Total 1537.50 / 1537.50 1050 / 1050 800 / 800 Output Total 450 / 450 650 / 650 250 / 250 Balance 1087.50 / 1087.50 400 / 400 550 / 550 General: Alert, Oriented x3, Cooperative, No apparent distress, Well developed, Well nourished HEENT: Atraumatic, PERRLA, EOMI, Normocephalic Oral: Moist Mucosa Neck: Supple, No JVD, No Nuchal Rigidity, Trachea Midline, Thyroid Normal Size and Texture Lungs: Clear to auscultation, Normal air movement, No rhonchi, No wheeze, No rales Cardiovascular: Regular rate, Regular Rhythm, Normal S1, Normal S2, No murmurs Abdomen: Bowel Sounds Present, Soft, Non Tender, Non-Distended, Obese Extremities: No clubbing, No cyanosis, No edema, Capillary Refill Less than 3 Seconds Skin: - - There is a healing incisional area over the patient's left shoulder Musculoskeletal: - - The surgical area over the patient's left shoulder appears to be healing well with minimal redness. Neurological: Cranial nerves II-XII grossly intact, Neuro grossly intact, Sensory exam intact to light touch and pain Psych/Mental Status: Normal Affect, Appropriate, Alert and oriented to time, place, person, mood and affect Current Medications Acetaminophen (Acetaminophen 325 Mg Tablet) 650 mg PO Q6H PRN PRN PRN Reason: Pain Score 1-10/Temp > 100.7 F Last Admin: 03/02/20 12:06 Dose: 650 mg Documented by: Albuterol Sulfate (Albuterol 2.5 Mg/3 Ml Vial.Neb.) 2.5 mg INHALATION Q2H PRN PRN PRN Reason: SOB &/OR WHEEZING Last Admin: 02/28/20 04:15 Dose: 2.5 mg Documented by: Amlodipine Besylate (Amlodipine 10 Mg Tablet) 10 mg PO DAILY [facility] Last Admin: 03/02/20 10:32 Dose: 10 mg Documented by: Atenolol (Atenolol 25 Mg Tablet) 25 mg PO BID [facility] Last Admin: 03/02/20 10:31 Dose: 25 mg Documented by: Clonidine (Clonidine Hcl 0.2 Mg Tablet) 0.2 mg PO BID [facility] Last Admin: 03/02/20 10:32 Dose: 0.2 mg Documented by: Folic Acid (Folic Acid 1 Mg Tablet) 1 mg PO DAILY@0800 [facility] Last Admin: 03/02/20 10:32 Dose: 1 mg Documented by: Hydralazine HCl (Hydralazine 10 Mg Tablet) 10 mg PO Q6H PRN PRN PRN Reason: BLOOD PRESSURE Sodium Chloride () 250 mls @ 15 mls/hr IV .[id number] PRN PRN Reason: Saline Flush Sodium Chloride () 250 mls @ 15 mls/hr IV .[id number] PRN PRN Reason: Additional IVPB Infusion Loperamide HCl (Loperamide 2 Mg Capsule) 2 mg PO Q4H PRN PRN PRN Reason: LOOSE STOOLS Last Admin: 02/26/20 06:33 Dose: 2 mg Documented by: Lorazepam (Lorazepam 1 Mg Tablet) 2 - 4 mg PO Q2H PRN PRN; Protocol PRN Reason: CIWA score > 8 but <15 Last Admin: 03/02/20 10:31 Dose: 2 mg Documented by: Lorazepam (Lorazepam 1 Mg Tablet) 2 - 4 mg PO UD PRN; Protocol PRN Reason: CIWA score >/=15. Last Admin: 03/01/20 18:33 Dose: 4 mg Documented by: Lorazepam (Lorazepam 2 Mg/Ml Syringe) 2 - 4 mg IV Q2H PRN PRN; Protocol PRN Reason: CIWA score > 8 but <15 Last Admin: 02/29/20 05:03 Dose: 4 mg Documented by: Lorazepam (Lorazepam 2 Mg/Ml Syringe) 2 - 4 mg IV UD PRN; Protocol PRN Reason: CIWA score >/=15. Last Admin: 02/29/20 08:07 Dose: 4 mg Documented by: Losartan Potassium (Losartan Potassium 50 Mg Tablet) 50 mg PO BID [facility] Last Admin: 03/02/20 10:31 Dose: 50 mg Documented by: Ondansetron HCl (Ondansetron 4 Mg/2 Ml Vial) 4 mg IV Q4H PRN PRN PRN Reason: NAUSEA/VOMITING Last Admin: 02/27/20 20:50 Dose: 4 mg Documented by: Ondansetron HCl (Ondansetron Odt 4 Mg Tablet) 8 mg PO Q6H PRN PRN PRN Reason: NAUSEA/VOMITING Last Admin: 02/29/20 15:15 Dose: 8 mg Documented by: Phenobarbital (Phenobarbital 32.4 Mg Tablet) 32.4 mg PO TID [facility] Last Admin: 03/02/20 14:33 Dose: 32.4 mg Documented by: Sodium Chloride (0.9% Saline Lock 10 Ml Syringe) 10 - 40 ml IV UD PRN PRN Reason: SALINE FLUSH Last Admin: 02/28/20 16:46 Dose: 10 ml Documented by: Thiamine HCl (Thiamine Hydrochloride 100 Mg Tablet) 100 mg PO DAILYCM [facility] Last Admin: 03/02/20 10:32 Dose: 100 mg Documented by: Trazodone HCl (Trazodone 100 Mg Tablet) 100 mg PO QHS PRN PRN PRN Reason: INSOMNIA Last Admin: 03/01/20 23:53 Dose: 100 mg Documented by: Medical Necessity - Tobacco Use Smoking Status: Current every day smoker Assessment/Plan All Active Problems Isopropyl alcohol poisoning (Resolved) Suicide attempt (Resolved) OSMANI (acute kidney injury) (Resolved) Alcohol withdrawal (Acute) #1 acute DTs from alcohol withdrawal-this appears to be clearing at this time, patient is on programmed phenobarbital #2 Seroma left shoulder-resolving #3 chronic alcoholism #4 essential hypertension-patient's blood pressure is improved #5 morbid obesity #6 history of bipolar disorder, this was placed in the patient's medical record 6 years ago, since the patient has not been on any medication in 2 years this is possibly not correct. Inpatient E&M: 11376 Subs Hosp L2
[2020-03-02] MEDS: Enoxaparin 40 MG/0.4 ML Syringe SC (17:56)
[2020-03-03] VITALS (7 sets, daily range): BP systolic 110–128; BP diastolic 73–80; PULSE 66–80; RESP 15–18; TEMP 36.5–36.8; O2SAT 93–97
[2020-03-03] MEDS: traZODone 100 MG Tablet PO (01:37)
[2020-03-03] MEDS: Phenobarbital 32.4 MG Tablet PO (05:28)
[2020-03-03] MEDS: Enoxaparin 40 MG/0.4 ML Syringe SC (05:31)
[2020-03-03] MEDS: Atenolol 25 MG Tablet PO (09:01)
[2020-03-03] MEDS: amLODIPine 10 MG Tablet PO (09:01)
[2020-03-03] MEDS: Folic Acid 1 MG Tablet PO (09:01)
[2020-03-03] MEDS: Losartan Potassium 50 MG Tablet PO (09:01)
[2020-03-03] MEDS: Thiamine Hydrochloride 100 MG Tablet PO (09:01)
[2020-03-03] MEDS: cloNIDine HCl 0.2 MG Tablet PO (09:01)
--- NOTE | 2020-03-03 09:39 | PCM.DC ---
- Discharge Diagnoses Current Active Problems: Current Active and Chronic Problems Transaminitis (Chronic) Alcohol withdrawal (Acute) DM type 2 (diabetes mellitus, type 2) (Chronic) Bipolar 1 disorder (Chronic) History of kidney stones (Chronic) Continuous chronic alcoholism (Chronic) up to 1 gallon vodka daily Tobacco use (Chronic) Psychiatric pseudoseizure (Chronic) Homelessness (Chronic) Benign essential hypertension (Chronic) You will use the following diet at home:: Cardiac Your food should be the consistency of: Regular Discharge Activity: May Not Drive Weight Bearing Status: Weight bearing as tolerated Call your doctor if you observe: Fever of 101 or Higher, Coldness, Increased Pain, Numbness or Tingling, Change in Color, Inability to urinate, Inability to have a bowel movement, Shortness of breath, Dizziness, Fainting spells, Chest pain, Prolonged hiccoughing, Increased palpitations (irregular heartbeat), Calf discomfort, Uncontrolled pain Additional Instructions: F/U 180 alcohol outpatient rehab Allergies/Adverse Reactions: Allergies amoxicillin [Amoxicillin] Allergy (Verified 02/25/20 12:29) Anaphylaxis Penicillins Allergy (Verified 02/25/20 12:29) Anaphylaxis Medications to take at Discharge Amlodipine [Norvasc] 10 mg PO DAILY 04/04/18 Atenolol [Tenormin (beta clem)] 25 mg PO BID 04/04/18 Losartan Potassium [Cozaar] 25 mg PO BID #120 tab 08/24/19 Folic Acid 1 mg PO DAILY@0800 #30 tab 03/03/20 Thiamine Hydrochloride [Vitamin B1] 100 mg PO DAILYCM #30 tab 03/03/20 The following prescriptions were given: Folic Acid 1 mg PO DAILY@0800 #30 tab Transmission Status: Pending to [facility] Thiamine Hydrochloride [Vitamin B1] 100 mg PO DAILYCM #30 tab Transmission Status: Pending to [facility] Primary Care Physician: Edison Shannon MD [Primary Care Provider] - Please follow up with your Primary Care Physician in: in 1-2 weeks Test Results: Test results from this visit will be discussed in further detail at your follow-up appointment, if applicable.
--- NOTE | 2020-03-03 10:25 | PCM.DC.SUM ---
Discharge Date and Diagnosis - Problem List Patient Problems: Active and Suspected Problems Alcohol withdrawal (Acute) Date of Admission: 02/25/20 Date of Discharge: 03/03/20 - Primary Discharge Diagnosis Acute Problems: Active Problems Alcohol withdrawal (Acute) - Secondary Discharge Diagnosis Chronic Problems: Chronic Problems Transaminitis (Chronic) DM type 2 (diabetes mellitus, type 2) (Chronic) Bipolar 1 disorder (Chronic) History of kidney stones (Chronic) Continuous chronic alcoholism (Chronic) up to 1 gallon vodka daily Tobacco use (Chronic) Psychiatric pseudoseizure (Chronic) Homelessness (Chronic) Benign essential hypertension (Chronic) Hospital Course and Treatment Operations: None Summary of Care Provided: The patient is a 54 year old M with history of chronic alcohol use and dependence was admitted with acute alcohol withdrawal symptoms of shakiness, hallucination mainly auditory seizures at home. Patient has history of relapse. #1 acute alcohol withdrawal syndrome with DT with history of chronic alcohol use and dependence, and relapse: [facility] Was treated with phenobarbital based regimen. Seen by alcohol rehab program nurse and has follow-up as an outpatient. Patient drinks a gallon a half of liquor every day #2 Seroma left shoulder-resolving: Patient recently had left rotator cuff surgery at [facility] 2 weeks prior to admission. 3. Essential hypertension-patient's blood pressure is improved and controlled #5 morbid obesity: Advised weight loss. #6 history of bipolar disorder: Advised to follow-up with PCP. Discharge medication reconciliation done. Discharge follow-up instructions completed. Discharge process discussed with the patient and all questions were answered to patient's satisfaction. Discharged on thiamine and folic acid. Total time spent, exact 35 minutes on discharge meds reconciliation, examination, coordination of care with nurses and ancillary staff, review of imaging and blood test and discussion with the patient on follow-up instructions Patient Problems: Active and Suspected Problems Alcohol withdrawal (Acute) Objective: Heart rate and blood pressure are in normal range. Patient eager to go home. Withdrawal symptoms are well controlled. Physical exam General: Alert, Oriented x3, Cooperative, morbid obesity with BMI 41.4 kg/m? HEENT: Atraumatic, PERRLA, EOMI, Normocephalic Oral: No Gingival or Mucosal Lesions/ Ulcerations Neck: Supple, No JVD, Negative Carotid Bruits Lungs: Air entry diminished in bilateral lung bases. No crepitation/rhonchi Cardiovascular: Regular rate, Regular Rhythm, Normal S1, Normal S2, No murmurs Abdomen: Bowel Sounds Present, Soft, Non Tender, Non-Distended : No renal angle tenderness. No suprapubic tenderness. Extremities: No edema, Capillary Refill Less than 3 Seconds Skin: No rashes, No breakdown Musculoskeletal: No Tenderness to Palpation of Joints or Extremities Neurological: Cranial nerves II-XII grossly intact, Deep Tendon Reflexes 2+/4 and Symmetrical, Neuro grossly intact Psych/Mental Status: Normal Affect, Appropriate. - Physical Exam Vitals/I&O's: Vital Signs Temp Pulse Resp BP Pulse Ox 98.3 F 73 15 123/74 H 95 03/03/20 06:00 03/03/20 06:00 03/03/20 06:00 03/03/20 06:00 03/03/20 06:00 Oxygen Flow Rate (L/min) 2 Oxygen Delivery Method Room Air Weight: 280 lb 3.32 oz Body Mass Index (BMI) 41.3 Finger Stick Blood Glucose 98 Intake and Output for Last 24 Hours 03/01/20 03/02/20 03/03/20 23:59 23:59 23:59 Intake Total 1050 / 1050 1300 / 1800 1000 / 1000 Output Total 650 / 650 250 / 250 Balance 400 / 400 1050 / 1550 1000 / 1000 Current Medications Acetaminophen (Acetaminophen 325 Mg Tablet) 650 mg PO Q6H PRN PRN PRN Reason: Pain Score 1-10/Temp > 100.7 F Last Admin: 03/02/20 12:06 Dose: 650 mg Documented by: Albuterol Sulfate (Albuterol 2.5 Mg/3 Ml Vial.Neb.) 2.5 mg INHALATION Q2H PRN PRN PRN Reason: SOB &/OR WHEEZING Last Admin: 02/28/20 04:15 Dose: 2.5 mg Documented by: Amlodipine Besylate (Amlodipine 10 Mg Tablet) 10 mg PO DAILY [facility] Last Admin: 03/02/20 10:32 Dose: 10 mg Documented by: Atenolol (Atenolol 25 Mg Tablet) 25 mg PO BID [facility] Last Admin: 03/02/20 20:55 Dose: 25 mg Documented by: Clonidine (Clonidine Hcl 0.2 Mg Tablet) 0.2 mg PO BID [facility] Last Admin: 03/02/20 20:55 Dose: 0.2 mg Documented by: Enoxaparin Sodium (Enoxaparin 40 Mg/0.4 Ml Syringe) 40 mg SC DAILY@0600 [facility] Last Admin: 03/03/20 05:31 Dose: 40 mg Documented by: Folic Acid (Folic Acid 1 Mg Tablet) 1 mg PO DAILY@0800 [facility] Last Admin: 03/02/20 10:32 Dose: 1 mg Documented by: Sodium Chloride () 250 mls @ 15 mls/hr IV .[id number] PRN PRN Reason: Saline Flush Sodium Chloride () 250 mls @ 15 mls/hr IV .[id number] PRN PRN Reason: Additional IVPB Infusion Losartan Potassium (Losartan Potassium 50 Mg Tablet) 50 mg PO BID [facility] Last Admin: 03/02/20 20:55 Dose: 50 mg Documented by: Ondansetron HCl (Ondansetron Odt 4 Mg Tablet) 8 mg PO Q6H PRN PRN PRN Reason: NAUSEA/VOMITING Last Admin: 02/29/20 15:15 Dose: 8 mg Documented by: Phenobarbital (Phenobarbital 32.4 Mg Tablet) 32.4 mg PO TID [facility] Last Admin: 03/03/20 05:28 Dose: 32.4 mg Documented by: Sodium Chloride (0.9% Saline Lock 10 Ml Syringe) 10 - 40 ml IV UD PRN PRN Reason: SALINE FLUSH Last Admin: 02/28/20 16:46 Dose: 10 ml Documented by: Thiamine HCl ([facility] Hydrochloride 100 Mg Tablet) [facility] Last Admin: 03/02/20 10:32 Dose: 100 mg Documented by: Trazodone HCl (Trazodone 100 Mg Tablet) 100 mg PO QHS PRN PRN PRN Reason: INSOMNIA Last Admin: 03/03/20 01:37 Dose: 100 mg Documented by: Home Medications: Medications to take at Discharge Amlodipine [Norvasc] 10 mg PO DAILY 04/04/18 Atenolol [Tenormin (beta clem)] 25 mg PO BID 04/04/18 Losartan Potassium [Cozaar] 25 mg PO BID #120 tab 08/24/19 Folic Acid 1 mg PO DAILY@0800 #30 tab 03/03/20 Thiamine Hydrochloride [Vitamin B1] 100 mg PO DAILYCM #30 tab 03/03/20 Following Prescriptions Were Given to Patient: Folic Acid 1 mg PO DAILY@0800 #30 tab Transmission Status: Received by [facility] Thiamine Hydrochloride [Vitamin B1] 100 mg PO DAILYCM #30 tab Transmission Status: Received by [facility] Primary Care Physician: Edison Shannon MD [Primary Care Provider] - Medical Necessity - Tobacco Use Smoking Status: Current every day smoker Meaningful Use Info Meaningful Use Diagnoses (Choose all that apply): None applicable Inpatient E&M: 04940 [facility]
--- NOTE | 2020-03-03 10:32 | NURSING ---
This nurse responded to bed exit alarm. patient up in room with Janet from 180 discussing discharge planning. Patient stated that he will be discharged today and would like to notify spouse for transportation purposes as it is a 2 hour commute according to patient. This nurse notified Dr Davis who reiterated his intentions to discharge patient if appropriate upon assessment. This nurse notified Jamilah per patient's request.
--- NOTE | 2020-03-03 10:50 | CASEMGMT ---
Social Work Note Janet with [employer] met with pt. Per Janet [facility] follow [facility]. Tiana Puente MANAGER WEALTH MANAGEMENT, MALT SPECIFICATIONS CONTROL ASSISTANT
== END 2020-03-03 12:35 | disposition home or self-care (01) | DRG 775 ==
LOC: ED 13:18 → MS3 22:52
PROVIDERS: Internal Medicine; Emergency Provider Student in an Organized Health Care Education/Training Program; PCP Family Medicine; Visit Provider Internal Medicine
DX: F10.231 Alcohol dependence with withdrawal delirium (principal); L76.34 Postprocedural seroma of skin and subcutaneous tissue following other procedure; I10 Essential (primary) hypertension; E66.01 Morbid (severe) obesity due to excess calories; F31.9 Bipolar disorder, unspecified; E11.9 Type 2 diabetes mellitus without complications; F17.200 Nicotine dependence, unspecified, uncomplicated; Z79.899 Other long term (current) drug therapy; Z68.41 Body mass index [BMI] 40.0-44.9, adult; Y90.8 Blood alcohol level of 240 mg/100 ml or more
CPT/HCPCS: 36415; 71045; 73201; 80053; 80307; 82077; 82962; 83735; 85025; 85610; 94640; 97802; 99251; 99284; 99406; J7030; J7040; J7050; Q9967; 90686; A4216; G0463; J2405

== ENCOUNTER 2024-01-29 11:07 | Inpatient (IN) | payer MEDICAID, SELFPAY ==
[2024-01-29] VITALS (7 sets, daily range): BP systolic 132–169; BP diastolic 80–109; PULSE 90–125; RESP 18–20; TEMP 36.1–37.1; O2SAT 91–98; BMI 44.6; BMI 43.3
--- NOTE | 2024-01-29 11:25 | EX.ED.SAOD ---
HPI History of Present Illness Chief Complaint: ETOH Intox Informant: patient Onset/Context/Timing Onset: Today Context: Gradual Onset Timing: Continuous Worsened by: Nothing Relieved by: Nothing Associated Symptoms Associated Symptoms: Positive for vomiting*, diarrhea* and fever*; Negative for rash*, seizure, tremor, palpatations, suicidal ideation or homicidal ideation Narrative Narrative: Patient presents with alcohol abuse. Patient is requesting detox. Patient states he drinks approximately a gallon to a gallon and a half of hard liquor per day. Patient states his last drink was at 2 AM today. Patient states she has been through detox in the past. Patient states it was 4 years ago and he was doing well until about 2 weeks ago when he started drinking again. Patient admits to some nausea, vomiting, and diarrhea. Patient admits to fever at home of 101.2. Patient admits to some palpitations. Patient denies any seizures or tremors. Patient denies any suicidal homicidal ideations. Prior similar symptoms: Yes PFSH [facility] Medical History (Updated 01/29/24 @ 13:[address] Misha Patel, DO) Tobacco use Benign essential hypertension DM type 2 (diabetes mellitus, type 2) Continuous chronic alcoholism Home Medications ?Medication ?Instructions ?Recorded ?Last Taken ?Type empagliflozin 10 mg tablet 10 mg PO DAILY 01/29/24 Unknown History (Jardiance) gabapentin 600 mg tablet 600 mg PO TID 01/29/24 Unknown History levothyroxine 50 mcg capsule 50 mcg PO DAILY 01/29/24 Unknown History lisinopril 10 mg tablet 10 mg PO DAILY 01/29/24 Unknown History omeprazole 40 mg capsule,delayed 40 mg PO Q8H 01/29/24 Unknown History release quetiapine 400 mg tablet 800 mg PO QHS 01/29/24 Unknown History rosuvastatin 40 mg tablet 40 mg PO DAILY 01/29/24 Unknown History Allergy/AdvReac Type Severity Reaction Status Date / Time amoxicillin (Amoxicillin) Allergy Anaphylaxis Verified 01/29/24 11:08 Penicillins Allergy Anaphylaxis Verified 01/29/24 11:08 Surgical History History of carpal tunnel surgery of right wrist History of carpal tunnel surgery of left wrist Hx of shoulder surgery History of cataract surgery Hx of neck surgery History of back surgery Social History (Updated 01/29/24 @ 11:[address] Misha Patel, DO) Smoking Status: Current every day smoker tobacco type: cigarettes alcohol intake: current alcohol intake frequency: 3 or more drinks per day Alcohol type: hard liquor ROS ROS ED Constitutional Constitutional ED: Reports fever(s); Denies chills Eyes Eyes: Denies blurry vision or change in vision ENT ENT ED: Reports sore throat; Denies rhinorrhea Cardiovascular Cardiovascular: Reports palpitations; Denies chest pain Respiratory/Chest Respiratory/Chest: Denies cough or dyspnea Gastrointestinal Gastrointestinal: Reports diarrhea, nausea and vomiting Genitourinary Genitourinary ED: Reports hematuria; Denies dysuria Musculoskeletal Musculoskeletal: Denies back pain or neck pain Integumentary Denies abscess or rash Neurologic Neurologic: Denies headache(s) or weakness Allergic/Immunologic Allergic/Immunologic ED: Denies mouth swelling or urticaria EXAM Physical Exam Const Vital Signs: 01/29/24 11:08 01/29/24 12:08 01/29/24 13:13 Temperature 96.9 F L 97.4 F L Temperature Source Temporal Pulse Rate 125 H 90 110 H Respiratory Rate 20 H 18 18 Blood Pressure 152/109 H 158/80 H 140/109 H Blood Pressure Mean 123 106 119 Pulse Ox 91 98 92 Oxygen Delivery Method Room Air Positive well nourished and well developed General Appearance ED: well developed and NAD HEENT Reports moist mucous membranes atraumatic Neck supple and no JVD Chest Wall inspection of chest normal and palpation of chest normal Resp normal respiratory effort and clear to auscultation bilaterally Cardio regular rhythm Rate: tachycardic GI soft to palpation, non-tender and non-distended Extremity General Extremety ED: Negative for edema or tenderness General Extremity: Negative for edema Neuro oriented x3, CN's II-XII intact bilaterally and no sensory deficits noted [place] Coma Scale: document GCS findings Spontaneous Obeys Commands Oriented 15 Sensorium / Orientation: alert Speech: speech normal Motor Exam: strength 5/5 throughout Psych mental status grossly normal and thought process normal MDM MDM MDM Narrative Medical decision making narrative: Medical screening labs will be obtained. CBC will be obtained to assess for leukocytosis and anemia. Comprehensive metabolic profile will be obtained to assess for hepatic function, renal function, and electrolyte abnormality. Lipase will be obtained to assess for pancreatitis. Urinalysis will be obtained to assess for urinary tract infection and hematuria. Serum alcohol level will be obtained to assess for alcohol intoxication. Urine tox screen will be obtained to assess for substance abuse. Lab Data Attestation: I reviewed the patient's lab results. Lab results narrative: CBC was reviewed and was within normal limits. Comprehensive metabolic profile was reviewed and showed slight increase in AST of 87 and ALT of 71. The remainder was within normal limits. Lipase was reviewed and was normal at 22. Serum alcohol level was reviewed and was elevated at 194. Labs: Laboratory Results - last 24 hr 01/29/24 11:20 WBC 5.2 RBC 5.23 Hgb 16.1 Hct 47.2 MCV 90.2 MCH 30.8 MCHC 34.1 RDW Std Deviation 49.3 H RDW Coeff of Jeremy 15.0 H Plt Count 115 L MPV 9.6 Sodium 136 Potassium 4.1 Chloride 98 Carbon Dioxide 26.0 Anion Gap 13 BUN 12 Creatinine 1.09 Estim Creat Clear Calc 102.81 Est GFR (MDRD) Af Amer 90 Est GFR (MDRD) Non-Af 74 BUN/Creatinine Ratio 11.0 Glucose 132 H Calcium 9.6 Total Bilirubin 0.90 AST 87 H ALT 71 H Alkaline Phosphatase 88 Total Protein 7.6 Albumin 3.9 Globulin 3.7 Albumin/Globulin Ratio 1.1 Lipase 22 Ethyl Alcohol 194.0 Management Discussion w/another healthcare provider: Hospitalist Treatment and Re-Evaluation Narrative: Patient was given a dose of phenobarbital here. Case was discussed with the hospitalist. He will admit the patient to his service. Patient understood and was agreeable with the plan. All questions were answered. Discharge Plan Triage Chief Complaint: ETOH Intox ED Provider: Misha Patel Dx/Rx/DC Orders Clinical Impression: Alcohol withdrawal, DM type 2 (diabetes mellitus, type 2), Tobacco use Prescriptions: No Action omeprazole 40 mg capsule,delayed release(DR/EC) 40 mg PO Q8H Patient Comments: TAKE 1 CAPSULE BY MOUTH EVERY DAY LAST REFILL UNTIL SEEN IN OFFICE gabapentin 600 mg tablet 600 mg PO TID quetiapine 400 mg tablet 800 mg PO QHS Jardiance 10 mg tablet 10 mg PO DAILY levothyroxine 50 mcg capsule 50 mcg PO DAILY lisinopril 10 mg tablet 10 mg PO DAILY rosuvastatin 40 mg tablet 40 mg PO DAILY Primary Care Provider: AKI STARR MD Referrals: Edison Shannon MD [Non-Staff] - Print Language: Danish Disposition Disposition: Acute Care Hospital [facility]
[2024-01-29 11:40] LABS: Hematocrit 47.2 % (40-54); Hemoglobin 16.1 g/dL (13.0-16.5); Mean Corp Hgb Conc 34.1 g/dL (32-36); Mean Corpuscular Hgb 30.8 pg (27.0-32.0); Mean Corpuscular Volume 90.2 fL (80-94); Mean Platelet Vol. 9.6 fl (6.2-12.0); Platelet Count 115 K/mm3 (150-450); RBC Distribution Width SD 49.3 fl (35.1-43.9); Red Blood Count 5.23 M/mm3 (4.6-6.2); White Blood Count 5.2 K/mm3 (4.4-11.0)
[2024-01-29] MEDS: Ondansetron 4 MG/2 ML Vial IV (11:42)
[2024-01-29 12:03] LABS: ALB/GLOB Ratio 1.1 RATIO (0.9-2.4); AST(SGOT) 87 U/L (15-37); Alanine Aminotransfer ALT/SGPT 71 U/L (16-61); Albumin, Serum 3.9 g/dL (3.2-5.0); Alkaline Phosphatase 88 U/L (45-117); Anion Gap 13 (5-15); BUN 12 mg/dL (7-18); Calcium,Total 9.6 mg/dL (8.5-10.1); Chloride 98 mmol/L (98-107); Creatinine, Serum 1.09 mg/dL (0.70-1.30); EST Glomerular Filtration Rate 74 mL/min (>60); Est Glom Filt Rate - Afr Amer 90 mL/min (>60); Estimated Creatinine Clearance 102.81 ml/min; Globulin 3.7 g/dL (2.2-4.2); Glucose 132 mg/dL (74-106); Lipase 22 U/L (13-75); Potassium 4.1 mmol/L (3.5-5.1); Protein, Total 7.6 g/dL (6.4-8.2); Sodium Level 136 mmol/L (136-145)
--- NOTE | 2024-01-29 13:24 | HP.PCM.HOS_ITS ---
HPI - General General Date of Admission: 01/29/24 Date of Service: 01/29/24 Chief Complaint: Alcohol detox HPI Narrative JACKELINE MERA, is a 58 M who presented to [facility] ED on 01/29/2024 requesting alcohol detox. Patient has history of alcohol abuse and went through detox here about 4 years ago. He remained abstinent from alcohol until about 2 weeks ago when he started drinking again. Currently drinks a gallon to a gallon a half of hard liquor per day. Last drink was at 2 AM on day of admission. Alcohol level 196 in ED. On arrival to the ED he was tachycardic to the low 100s and mildly hypertensive. Lab workup was fairly benign. Given desire for alcohol detox, hospitalist was contacted for admission. I saw the patient at bedside in the ED, was present. Patient was somewhat shaky and did appear to be actively withdrawing from alcohol. He was able to answer questions appropriately for me. He reported withdrawal symptoms of tremors and general sensory changes. notes that he does have history of alcohol withdrawal seizures. Was given a dose of p.o. phenobarbital shortly before I saw him but this had not taken effect yet. Patient denies any other acute concerns. Will be admitted for further management. [facility] Medical History (Updated 01/29/24 @ 17:[address] Ochoa Shaffer, DO) Tobacco use Benign essential hypertension DM type 2 (diabetes mellitus, type 2) Continuous chronic alcoholism Home Medications ?Medication ?Instructions ?Recorded ?Last Taken ?Type empagliflozin 10 mg tablet 10 mg PO DAILY 01/29/24 Unknown History (Jardiance) gabapentin 600 mg tablet 600 mg PO TID 01/29/24 Unknown History levothyroxine 50 mcg capsule 50 mcg PO DAILY 01/29/24 Unknown History lisinopril 10 mg tablet 10 mg PO DAILY 01/29/24 Unknown History omeprazole 40 mg capsule,delayed 40 mg PO Q8H 01/29/24 Unknown History release quetiapine 400 mg tablet 800 mg PO QHS 01/29/24 Unknown History rosuvastatin 40 mg tablet 40 mg PO DAILY 01/29/24 Unknown History Allergy/AdvReac Type Severity Reaction Status Date / Time amoxicillin (Amoxicillin) Allergy Anaphylaxis Verified 01/29/24 11:08 Penicillins Allergy Anaphylaxis Verified 01/29/24 11:08 Surgical History History of carpal tunnel surgery of right wrist History of carpal tunnel surgery of left wrist Hx of shoulder surgery History of cataract surgery Hx of neck surgery History of back surgery Social History (Updated 01/29/24 @ 11:[address] Misha Patel, DO) Smoking Status: Current every day smoker tobacco type: cigarettes alcohol intake: current alcohol intake frequency: 3 or more drinks per day Alcohol type: hard liquor ROS Constitutional Constitutional: Reports fatigue; Denies chills, fever(s) or weakness Eyes Eyes: Denies change in vision Cardiovascular Cardiovascular: Denies chest pain Respiratory/Chest Respiratory/Chest: Denies shortness of breath at rest Gastrointestinal Gastrointestinal: Reports nausea; Denies abdominal pain, constipation, diarrhea or vomiting Musculoskeletal Musculoskeletal: Denies arthralgias or myalgias Neurologic Neurologic: Reports dizziness, headache(s) and tremor(s); Denies confusion, disequilibrium or focal weakness Psychiatric Psychiatric: Reports anxiety Vital Signs Vital Signs Vital Signs: 01/29/24 11:08 01/29/24 12:08 01/29/24 13:13 Temperature 96.9 F L 97.4 F L Temperature Source Temporal Pulse Rate 125 H 90 110 H Respiratory Rate 20 H 18 18 Blood Pressure 152/109 H 158/80 H 140/109 H Blood Pressure Mean 123 106 119 Pulse Ox 91 98 92 Oxygen Delivery Method Room Air Weight Weight: 136.985 kg Body Mass Index (BMI) 44.6 Physical Exam Const alert, oriented x3 and no apparent distress Constitutional Narrative: Middle-age male, class III obesity, mildly anxious appearing with tremors noted, otherwise sitting up in bed and conversing normally. General Appearance: cooperative HEENT normocephalic, head/scalp atraumatic, hearing grossly normal bilaterally, nasal mucous membranes and turbinates normal and moist oral mucous membranes Eyes PERRL, EOMs intact bilaterally and conjunctivae normal Neck full ROM Chest inspection of chest normal Resp normal respiratory effort, normal air movement, no use of accessory muscles and clear to auscultation bilaterally Cardio no murmurs and peripheral pulses 2+ throughout Cardio Narrative: Tachycardic, regular rhythm. GI normal to inspection, nondistended, normoactive bowel sounds, soft to palpation, non-tender and non-distended Back/Spine normal ROM Extremity normal to inspection, full ROM and no pedal edema Skin no rashes or lesions noted Psych mental status grossly normal Mood & Affect: anxious Results Lab / Micro Data 01/29/24 11:20 01/29/24 11:20 Labs: Laboratory Results - last 24 hr 01/29/24 11:20: WBC 5.2, RBC 5.23, Hgb 16.1, Hct 47.2, MCV 90.2, MCH 30.8, MCHC 34.1, RDW Std Deviation 49.3 H, RDW Coeff of Jeremy 15.0 H, Plt Count 115 L, MPV 9.6, Sodium 136, Potassium 4.1, Chloride 98, Carbon Dioxide 26.0, Anion Gap 13, BUN 12, Creatinine 1.09, Estim Creat Clear Calc 102.81, Est GFR (MDRD) Af Amer 90, Est GFR (MDRD) Non-Af 74, BUN/Creatinine Ratio 11.0, Glucose 132 H, Calcium 9.6, Total Bilirubin 0.90, AST 87 H, ALT 71 H, Alkaline Phosphatase 88, Total Protein 7.6, Albumin 3.9, Globulin 3.7, Albumin/Globulin Ratio 1.1, Lipase 22, Ethyl Alcohol 194.0 Assessment & Plan Assessment/Plan (1) Alcohol abuse: (2) Desire for detoxification: PLAN: Plan Patient is a 58-year-old male who presented [facility] ED on 01/29/2024 requesting alcohol detox. 1. Alcohol abuse with request for detoxification, reported history of alcohol withdrawal seizures ? Admit under inpatient [facility] to [facility]. Case management/addiction medicine consulted. Will treat with phenobarbital taper and other as needed medications per alcohol withdrawal order set. 2. Mild LFT elevation ? AST 87, ALT 71 on admit. LFTs otherwise normal. Suspected secondary to fatty liver disease versus mild inflammation from alcohol use. Follow-up a.m. LFTs. No need for imaging at this time. 3. Insomnia ? Confirmed on admit that he takes Seroquel 800 mg at night. Noted to him that because of drug interaction with phenobarbital, will not prescribe more than Seroquel 100 mg at night while here. He was agreeable to this. Chronic medical conditions: ? Class III obesity: BMI 43 on admit. Complicates hospital course, care and prognosis. ? Hypertension: Continue home lisinopril. ? Hyperlipidemia: Continue home statin. ? Hypothyroidism: Continue home Synthroid. ? GERD: Continue home PPI. ? Neuropathy: Continue gabapentin. DVT prophylaxis: Lovenox twice daily CODE STATUS: Full code, unverified Expected disposition: Home, TBD Total clinical time spent by myself addressing the patient's medical issues, reviewing all the data, and collaborating with patient's care team: 55 minutes. Charges/Coding Visit Charges Inpatient E&M: 72268 Init Hosp L2
[2024-01-29] MEDS: Phenobarbital 32.4 MG Tablet 64.8 MG PO ×4 (13:25→22:48)
[2024-01-29] MEDS: hydrOXYzine PAM 25 MG Capsule 50 MG PO ×2 (15:33→20:42)
[2024-01-29] MEDS: Gabapentin 600 MG Tablet PO ×2 (15:33→20:42)
[2024-01-29] MEDS: Dicyclomine 10 MG Capsule 20 MG PO (20:41)
[2024-01-29] MEDS: QUEtiapine 100 MG Tablet PO (20:41)
[2024-01-29] MEDS: Enoxaparin 40 MG/0.4 ML Syringe SC (20:41)
[2024-01-29] MEDS: Loperamide 2 MG Capsule PO (20:42)
[2024-01-29] MEDS: Ondansetron 8 MG Tablet PO (20:42)
[2024-01-30 02:32] VITALS: BP 168/100; PULSE 99; RESP 18; TEMP 36.6; O2SAT 94
[2024-01-30] MEDS: Phenobarbital 32.4 MG Tablet 64.8 MG PO ×6 (02:39→22:59)
[2024-01-30] MEDS: hydrOXYzine PAM 25 MG Capsule 50 MG PO ×2 (02:39→11:42)
[2024-01-30] MEDS: Acetaminophen 325 MG Tablet 650 MG PO (02:46)
[2024-01-30 06:23] VITALS: BP 163/101; PULSE 98; RESP 18; TEMP 36.7; O2SAT 94
[2024-01-30] MEDS: Gabapentin 600 MG Tablet PO ×3 (06:31→20:58)
[2024-01-30] MEDS: Lisinopril 10 MG Tablet PO (06:31)
[2024-01-30] MEDS: Levothyroxine 50 MCG Tablet PO (06:32)
[2024-01-30 06:59] VITALS: O2SAT 93
[2024-01-30 07:21] VITALS: BP 161/105; PULSE 97; RESP 20; TEMP 37.2; O2SAT 92
--- NOTE | 2024-01-30 07:43 | NURSING ---
Staff calls out to nurse that patient reports he thinks he had a seizure. Nurses into assess and bedside assessment done. Pt states he has a metalic taste in his mouth and he could not remember anything for 5 mins. Nurse asks pt if you could not remember anything how did you conclude that it was 5 mins. Pt states he he was looking at the clock. He is alert and oriented and is aware of date and time.Equal hand grasp. Pt does have tremors. Hospitalist notified and new order for librium. Seizure pads placed and bed alarm. Pt is told he needs to use call light and urinal at bedside.
[2024-01-30] MEDS: Thiamine Hydrochloride 100 MG Tablet PO (07:51)
[2024-01-30] MEDS: chlordiazePOXIDE 25 MG Capsule PO ×3 (07:51→20:58)
[2024-01-30] MEDS: Atorvastatin Calcium 80 MG Tablet PO (07:51)
[2024-01-30] MEDS: Pantoprazole Sodium 40 MG Tablet PO (07:51)
[2024-01-30] MEDS: Folic Acid 1 MG Tablet PO (07:52)
[2024-01-30] MEDS: Enoxaparin 40 MG/0.4 ML Syringe SC ×2 (07:52→20:57)
[2024-01-30 09:19] LABS: Hematocrit 46.3 % (40-54); Hemoglobin 15.7 g/dL (13.0-16.5); Mean Corp Hgb Conc 33.9 g/dL (32-36); Mean Corpuscular Volume 91.5 fL (80-94); Mean Platelet Vol. 10.2 fl (6.2-12.0); POSITIVE COUNT YES; Platelet Count 90 K/mm3 (150-450); RBC Distribution Width SD 49.7 fl (35.1-43.9); Red Blood Count 5.06 M/mm3 (4.6-6.2); White Blood Count 5.9 K/mm3 (4.4-11.0)
[2024-01-30 09:21] LABS: Scan Indicated on CBC? Y/N YES- FLAGS NOTED
[2024-01-30 09:36] LABS: Anion Gap 10 (5-15); BUN 9 mg/dL (7-18); BUN/Creat Ratio 7.6 RATIO (10-20); Calcium,Total 9.2 mg/dL (8.5-10.1); Chloride 97 mmol/L (98-107); Creatinine, Serum 1.19 mg/dL (0.70-1.30); EST Glomerular Filtration Rate 67 mL/min (>60); Est Glom Filt Rate - Afr Amer 81 mL/min (>60); Estimated Creatinine Clearance 92.71 ml/min; Glucose 132 mg/dL (74-106); Potassium 3.5 mmol/L (3.5-5.1); Sodium Level 136 mmol/L (136-145)
--- NOTE | 2024-01-30 11:18 | ADDICTION ---
This screen writer met with PT to conduct ASAM, MSE, AUDIT, DUDIT assessments and to plan for d/c. PT A+Ox4 and participated actively. All assessments completed including the Vivitrol assessment and pt's readiness meets criteria. PT plans to f/u with outpatient treatment services, however he wanted to discuss it with his family upon d/c. This worker offered resources based on his listed location in which he lives, provider of MAT and tx needs. PT did not indicate a need for transportation post d/c from [facility].
--- NOTE | 2024-01-30 11:45 | PCM.PN.HOSP ---
Subjective Subjective CIWA score of 12, last drink was yesterday morning so he is approximately 24 hours sober Objective Data Objective Data Vital Signs: Vital Signs Temp Pulse Resp BP Pulse Ox O2 Del Method O2 Flow Rate 98.9 F 97 20 H 161/105 H 92 Room Air 3 01/30/24 07:21 01/30/24 07:21 01/30/24 07:21 01/30/24 07:21 01/30/24 07:21 01/30/24 08:38 01/30/24 07:21 Oxygen Flow Rate (L/min) 3 Oxygen Delivery Method Room Air Weight: 293 lb 10.491 oz Body Mass Index (BMI) 43.3 Intake & Output: Intake and Output for Last 24 Hours 01/29/24 01/30/24 01/31/24 03:59 03:59 03:59 Intake Total 1300 / 1300 300 / 300 Balance 1300 / 1300 300 / 300 Lab / Micro Data 01/30/24 09:05 01/30/24 09:05 Labs: Laboratory Results - last 24 hr 01/29/24 11:20: Sodium 136, Potassium 4.1, Chloride 98, Carbon Dioxide 26.0, Anion Gap 13, BUN 12, Creatinine 1.09, Estim Creat Clear Calc 102.81, Est GFR (MDRD) Af Amer 90, Est GFR (MDRD) Non-Af 74, BUN/Creatinine Ratio 11.0, Glucose 132 H, Calcium 9.6, Total Bilirubin 0.90, AST 87 H, ALT 71 H, Alkaline Phosphatase 88, Total Protein 7.6, Albumin 3.9, Globulin 3.7, Albumin/Globulin Ratio 1.1, Lipase 22, Ethyl Alcohol 194.0 01/30/24 09:05: WBC 5.9, RBC 5.06, Hgb 15.7, Hct 46.3, MCV 91.5, MCH 31.0, MCHC 33.9, RDW Std Deviation 49.7 H, RDW Coeff of Jeremy 15.0 H, Plt Count 90 L, MPV 10.2, Differential Comment COMMENT, Sodium 136, Potassium 3.5, Chloride 97 L, Carbon Dioxide 30.0, Anion Gap 10, BUN 9, Creatinine 1.19, Estim Creat Clear Calc 92.71, Est GFR (MDRD) Af Amer 81, Est GFR (MDRD) Non-Af 67, BUN/Creatinine Ratio 7.6 L, Glucose 132 H, Calcium 9.2 Physical Exam Narrative General: Alert, Oriented x3, Cooperative, No apparent distress, minor tremor HEENT: Atraumatic, PERRLA, EOMI, Normocephalic Oral: Moist Mucosa Neck: Supple, No JVD Lungs: Diminished, Normal air movement, No rhonchi, No wheeze, No rales Cardiovascular: Regular rate, Regular Rhythm, Normal S1, Normal S2, No murmurs Abdomen: Soft, Non Tender, Non-Distended, No Hepato-splenomegaly Extremities: No edema, Capillary Refill Less than 3 Seconds Skin: No rashes, No breakdown Musculoskeletal: No Tenderness to Palpation of Joints or Extremities Neurological: No focal neurological deficits, Motor Exam 5/5 strength throughout, Sensory exam intact to light touch and pain Psych/Mental Status: Flat Assessment & Plan Assessment/Plan (1) Alcohol abuse: (2) Desire for detoxification: PLAN: Plan 1. Alcohol abuse requesting detox current withdrawal/elevated LFTs ? Does have a history of withdrawal seizures so we will continue with phenobarbital taper in the alcohol withdrawal protocol but will also add Librium ? Will have him follow-up with 180 to develop a discharge plan ? LFTs are slightly elevated on admission, this is likely related to his alcohol [id number] as an outpatient 2. Essential HTN/HLD ? Continue with his home blood pressure medications ? Continue with his home cholesterol medications ? Will monitor make adjustments as necessary 3. Hypothyroidism ? Stable ?continue with Synthroid 4. GERD ? Stable ? Continue with PPI 5. Insomnia ? Continue with the Seroquel ? Monitor make adjustments as necessary 6. Neuropathy ? Stable ? Continue with gabapentin DVT: Lovenox Charges/Coding Visit Charges Inpatient E&M: 89165 Subs Hosp L2
[2024-01-30 13:50] VITALS: BP 153/82; PULSE 91; RESP 18; TEMP 36.7; O2SAT 96
[2024-01-30 20:43] VITALS: BP 132/92; PULSE 92; RESP 18; TEMP 36.7; O2SAT 95
[2024-01-30 20:52] LABS: Color, Urine Amber (Yellow); Glucose, Dipstick Normal (Normal); Ketone-Dipstick Negative (Negative); Leukocyte Esterase-Dipstick 25 /ul (Negative); Mucous, Urine 0 SEEN /hpf (<or=2+); Nitrite-Dipstick Negative (Negative); Occult Blood-Urine 25 /ul (Negative); Protein-Dipstick 30 mg/dl (Negative); Specific Gravity, Urine 1.025 (1.002-1.030); Squamous Epithelial Cells - UA 0 SEEN /hpf (0-5); Urine Bilirubin Dipstick Negative (Negative); Urine Clarity Sl. Cloudy (Clear); Urine Urobilinogen Normal (Normal)
[2024-01-30] MEDS: QUEtiapine 100 MG Tablet PO (20:57)
[2024-01-30] MEDS: Loperamide 2 MG Capsule PO (20:58)
[2024-01-30 21:11] LABS: Amorphous Sediment 1+; Bacteria RARE /hpf (None Seen); Calcium Oxalate Crystals Ur RARE /hpf (<or=2+); Red Blood Cells-Urine 0-5 SEEN /hpf (0-5); Renal Epithelial Cells 0-5 SEEN /hpf (0-5); White Blood Cells 0-5 SEEN /hpf (0-5)
[2024-01-30 21:16] LABS: Amphetamine Urine VISTA NEGATIVE (<1000 ng/mL); Barbiturate Urine VISTA POSITIVE (< 200 ng/mL); Benzodiazepine Urine VISTA NEGATIVE (< 200 ng/mL); Cocaine Urine VISTA NEGATIVE (< 300 ng/mL); Ecstacy Urine VISTA NEGATIVE (< 500 ng/mL); Methadone Urine VISTA NEGATIVE (< 300 ng/mL); PCP Urine VISTA NEGATIVE (< 25 ng/mL); THC Urine VISTA POSITIVE (< 50 ng/mL); Vista UDS pH Range 5
[2024-01-31 02:45] VITALS: BP 115/69; PULSE 93; RESP 18; TEMP 36.4; O2SAT 92
[2024-01-31] MEDS: Phenobarbital 32.4 MG Tablet 64.8 MG PO ×6 (02:50→22:31)
[2024-01-31] MEDS: Gabapentin 600 MG Tablet PO ×3 (06:09→21:09)
[2024-01-31] MEDS: chlordiazePOXIDE 25 MG Capsule PO ×3 (06:09→21:09)
[2024-01-31] MEDS: Levothyroxine 50 MCG Tablet PO (06:09)
[2024-01-31 09:06] VITALS: BP 143/74; PULSE 92; RESP 18; TEMP 36.5; O2SAT 93
[2024-01-31] MEDS: Lisinopril 10 MG Tablet PO (09:15)
[2024-01-31] MEDS: Atorvastatin Calcium 80 MG Tablet PO (09:15)
[2024-01-31] MEDS: Folic Acid 1 MG Tablet PO (09:15)
[2024-01-31] MEDS: Pantoprazole Sodium 40 MG Tablet PO (09:15)
[2024-01-31] MEDS: Thiamine Hydrochloride 100 MG Tablet PO (09:15)
--- NOTE | 2024-01-31 09:26 | PCM.PN.HOSP ---
Subjective Subjective Doing well, no issues overnight. CIWA score of 0 Objective Data Objective Data Vital Signs: Vital Signs Temp Pulse Resp BP Pulse Ox O2 Del Method O2 Flow Rate 97.7 F L 92 18 143/74 H 93 Room Air 3 01/31/24 09:06 01/31/24 09:06 01/31/24 09:06 01/31/24 09:06 01/31/24 09:06 01/31/24 09:06 01/30/24 14:00 Oxygen Flow Rate (L/min) 3 Oxygen Delivery Method Room Air Weight: 293 lb 10.491 oz Body Mass Index (BMI) 43.3 Intake & Output: Intake and Output for Last 24 Hours 01/30/24 01/31/24 02/01/24 03:59 03:59 03:59 Intake Total 1300 / 1300 2800 / 2800 500 / 500 Balance 1300 / 1300 2800 / 2800 500 / 500 Lab / Micro Data 01/30/24 09:05 01/30/24 09:05 Labs: Laboratory Results - last 24 hr 01/30/24 09:05: Differential Comment COMMENT, Sodium 136, Potassium 3.5, Chloride 97 L, Carbon Dioxide 30.0, Anion Gap 10, BUN 9, Creatinine 1.19, Estim Creat Clear Calc 92.71, Est GFR (MDRD) Af Amer 81, Est GFR (MDRD) Non-Af 67, BUN/Creatinine Ratio 7.6 L, Glucose 132 H, Calcium 9.2 01/30/24 20:20: Urine Color Cecile, Urine Clarity Sl. Cloudy, Urine pH 6.0, Ur Specific [place] 1.025, Urine Protein 30 H, Urine Glucose (UA) Normal, Urine Ketones Negative, Urine Occult Blood 25 H, Urine Nitrite Negative, Urine Bilirubin Negative, Urine Urobilinogen Normal, Ur Leukocyte Esterase 25 H, Urine RBC 0-5 SEEN, Urine WBC 0-5 SEEN, Ur Squamous Epith Cells 0 SEEN, Ur Renal Epithelial Cell 0-5 SEEN, Calcium Oxalate Crystal RARE, Amorphous Sediment 1+, Urine Bacteria RARE, Urine Mucus 0 SEEN, Urine Opiates Screen NEGATIVE, Urine Methadone Screen NEGATIVE, Ur Barbiturates Screen POSITIVE H, Ur Phencyclidine Scrn NEGATIVE, Ur Amphetamines Screen NEGATIVE, MDMA (Ecstasy) Screen NEGATIVE, U Benzodiazepines Scrn NEGATIVE, Urine Cocaine Screen NEGATIVE, U Cannabinoids Screen POSITIVE H, Ur Drug Screen Comment Physical Exam Narrative General: Alert, Oriented x3, Cooperative, No apparent distress, minor tremor HEENT: Atraumatic, PERRLA, EOMI, Normocephalic Oral: Moist Mucosa Neck: Supple, No JVD Lungs: Diminished, Normal air movement, No rhonchi, No wheeze, No rales Cardiovascular: Regular rate, Regular Rhythm, Normal S1, Normal S2, No murmurs Abdomen: Soft, Non Tender, Non-Distended, No Hepato-splenomegaly Extremities: No edema, Capillary Refill Less than 3 Seconds Skin: No rashes, No breakdown Musculoskeletal: No Tenderness to Palpation of Joints or Extremities Neurological: No focal neurological deficits, Motor Exam 5/5 strength throughout, Sensory exam intact to light touch and pain Psych/Mental Status: Normal affect, appropriate Assessment & Plan Assessment/Plan (1) Alcohol abuse: (2) Desire for detoxification: PLAN: Plan 1. Alcohol abuse requesting detox current withdrawal/elevated LFTs ? Does have a history of withdrawal seizures so we will continue with phenobarbital taper in the alcohol withdrawal protocol but will also add Librium ? Will have him follow-up with 180 to develop a discharge plan, he looks in [place] ? LFTs are slightly elevated on admission, this is likely related to his alcohol [id number] as an outpatient 2. Essential HTN/HLD ? Continue with his home blood pressure medications ? Continue with his home cholesterol medications ? Will monitor make adjustments as necessary 3. Hypothyroidism ? Stable ?continue with Synthroid 4. GERD ? Stable ? Continue with PPI 5. Insomnia ? Continue with the Seroquel ? Monitor make adjustments as necessary 6. Neuropathy ? Stable ? Continue with gabapentin DVT: Lovenox Charges/Coding Visit Charges Inpatient E&M: 10397 Subs Hosp L2
[2024-01-31 12:12] VITALS: BP 115/85; PULSE 89; RESP 18; TEMP 36.8; O2SAT 92
[2024-01-31 15:03] VITALS: BP 124/84; PULSE 105; RESP 18; TEMP 36.7; O2SAT 95
[2024-01-31 18:46] VITALS: BP 113/61; PULSE 88; RESP 16; TEMP 36.8; O2SAT 96
[2024-01-31 20:12] VITALS: BP 113/84; PULSE 88; RESP 18; TEMP 36.8; O2SAT 93
[2024-01-31] MEDS: Loperamide 2 MG Capsule PO (20:20)
[2024-01-31] MEDS: QUEtiapine 100 MG Tablet PO (21:09)
[2024-02-01 04:07] VITALS: BP 117/80; PULSE 94; RESP 18; TEMP 36.8; O2SAT 96
[2024-02-01] MEDS: Phenobarbital 32.4 MG Tablet 64.8 MG PO (04:09)
[2024-02-01] MEDS: Gabapentin 600 MG Tablet PO (06:07)
[2024-02-01] MEDS: chlordiazePOXIDE 25 MG Capsule PO (06:07)
[2024-02-01] MEDS: Levothyroxine 50 MCG Tablet PO (06:07)
[2024-02-01] MEDS: Pantoprazole Sodium 40 MG Tablet PO (08:21)
[2024-02-01] MEDS: Thiamine Hydrochloride 100 MG Tablet PO (08:21)
[2024-02-01] MEDS: Folic Acid 1 MG Tablet PO (08:21)
[2024-02-01] MEDS: Lisinopril 10 MG Tablet PO (08:22)
[2024-02-01] MEDS: Atorvastatin Calcium 80 MG Tablet PO (08:22)
[2024-02-01 08:25] VITALS: BP 127/93; PULSE 88; RESP 18; TEMP 37.1; O2SAT 94
--- NOTE | 2024-02-01 09:37 | DCINST_ITS ---
Discharge Instructions Diet Discharge Diet: Low fat / Low cholesterol DC O2, CPAP, BIPAP needs Additional Home O2 Discharge instructions: No Dressing / Incision Discharge Activity: Return to Normal Activity Dressing / Incision Call your doctor if you observe: Fever of 101 or Higher, Shortness of breath, Dizziness, Fainting spells, Swelling in the ankles, Chest pain and Increased palpitations (irregular heartbeat) Follow Up Care Test Results: Test results from this visit will be discussed in further detail at your follow- up appointment, if applicable. Discharge Plan Admission Admit Date/Time: 01/29/24 13:25 Attending Provider: Miguel Hargrove Primary Care Provider: Brannon Orourke Consulting Providers: Ochoa Shaffer Discharge Orders/Prescriptions Prescriptions: Continued omeprazole 40 mg capsule,delayed release(DR/EC) 40 mg PO Q8H Patient Comments: TAKE 1 CAPSULE BY MOUTH EVERY DAY LAST REFILL UNTIL SEEN IN OFFICE gabapentin 600 mg tablet 600 mg PO TID quetiapine 400 mg tablet 800 mg PO QHS Jardiance 10 mg tablet 10 mg PO DAILY levothyroxine 50 mcg capsule 50 mcg PO DAILY lisinopril 10 mg tablet 10 mg PO DAILY rosuvastatin 40 mg tablet 40 mg PO DAILY Referrals / Follow Up: Brannon Orourke MD [Primary Care Provider] - Edison Shannon MD [Non-Staff] - Disposition Disposition (needs filled in before D/C Order can be placed): Home, Self Care
[2024-02-01] MEDS: Naltrexone Microspheres 380 MG SYRINGE IM (11:21)
[2024-02-01] MEDS: Vivitrol ID Card 1 EACH MC (11:22)
[2024-02-01 11:26] VITALS: BP 144/70; PULSE 84; RESP 18; TEMP 36.7; O2SAT 96
--- NOTE | 2024-02-01 12:19 | PCM.DC.SUM ---
Providers Date of Admission: 01/29/24 Primary Care Physician: Dr. Brannon Orourke MD Reason For Visit: ALCOHOL DETOX Diagnosis Discharge Diagnosis (1) Alcohol abuse: Status: Inactive Code(s): F10.10 - Alcohol abuse, uncomplicated (2) Desire for detoxification: Status: Acute Medications at Discharge Home Medications empagliflozin 10 mg tablet (Jardiance) 10 mg PO DAILY 01/29/24 gabapentin 600 mg tablet 600 mg PO TID 01/29/24 levothyroxine 50 mcg capsule 50 mcg PO DAILY 01/29/24 lisinopril 10 mg tablet 10 mg PO DAILY 01/29/24 omeprazole 40 mg capsule,delayed release 40 mg PO Q8H 01/29/24 quetiapine 400 mg tablet 800 mg PO QHS 01/29/24 rosuvastatin 40 mg tablet 40 mg PO DAILY 01/29/24 Hospital Course Operations None Procedures None Summary of Care Provided Minutes Spent on Discharge: 35 Hospital Course: Per HPI: JACKELINE MERA, is a 58 M who presented to [facility] ED on 01/29/2024 requesting alcohol detox. Patient has history of alcohol abuse and went through detox here about 4 years ago. He remained abstinent from alcohol until about 2 weeks ago when he started drinking again. Currently drinks a gallon to a gallon a half of hard liquor per day. Last drink was at 2 AM on day of admission. Alcohol level 196 in ED. On arrival to the ED he was tachycardic to the low 100s and mildly hypertensive. Lab workup was fairly benign. Given desire for alcohol detox, hospitalist was contacted for admission. I saw the patient at bedside in the ED, was present. Patient was somewhat shaky and did appear to be actively withdrawing from alcohol. He was able to answer questions appropriately for me. He reported withdrawal symptoms of tremors and general sensory changes. notes that he does have history of alcohol withdrawal seizures. Was given a dose of p.o. phenobarbital shortly before I saw him but this had not taken effect yet. Patient denies any other acute concerns. Will be admitted for further management. Hospital Course: 1. Alcohol abuse requesting detox/elevated LFTs?58-year-old male presented to the hospital requesting detox from alcohol. He was initially in the alcohol withdrawal protocol which he tolerated well he had indicated that he had had a history of seizures prior so he was also started on Librium. On the day of discharge his CIWA scores were 0. He was given a dose of Vistaril prior to discharge. I discussed with him the plan for discharge today he expressed understanding of the risk and benefits of going home and would like to go home today. 180 was consulted during his admission and help get him situated with addiction medicine out by where he lives in [place]. He does have mildly elevated LFTs on admission likely related to his alcohol abuse. Recommend outpatient monitoring of his LFTs. 2. Essential hypertension, hyperlipidemia, hypothyroidism, GERD, insomnia, neuropathy are all chronic medical conditions which complicate his care. His home medications were continued where appropriate Physical Exam Narrative General: Alert, Oriented x3, Cooperative, No apparent distress HEENT: Atraumatic, PERRLA, EOMI, Normocephalic Oral: Moist Mucosa Neck: Supple, No JVD Lungs: Diminished, Normal air movement, No rhonchi, No wheeze, No rales Cardiovascular: Regular rate, Regular Rhythm, Normal S1, Normal S2, No murmurs Abdomen: Soft, Non Tender, Non-Distended, No Hepato-splenomegaly Extremities: No edema, Capillary Refill Less than 3 Seconds Skin: No rashes, No breakdown Musculoskeletal: No Tenderness to Palpation of Joints or Extremities Neurological: No focal neurological deficits, Motor Exam 5/5 strength throughout, Sensory exam intact to light touch and pain Psych/Mental Status: Normal affect, appropriate Weight / BMI Weight Weight: 293 lb 10.491 oz Body Mass Index (BMI) 43.3 ABG / Lab / Microbiology Data 01/30/24 09:05 01/30/24 09:05 D/C Instructions Discharge Diet: Low fat / Low cholesterol Call your doctor if you observe: Fever of 101 or Higher, Shortness of breath, Dizziness, Fainting spells, Swelling in the ankles, Chest pain and Increased palpitations (irregular heartbeat) DC O2, CPAP, BIPAP Needs Additional Home O2 Discharge instructions: No DC home with Oxygen: No Meaningful Use Info Meaningful Use Meaningful Use Diagnoses (Choose all that apply): None applicable Ischemic Stroke Statin Dosing Therapy Reference: STATIN DOSE THERAPY REFERENCE: * Patients > 75 years receive moderate or high dose statin therapy. * Patients 75 years or YOUNGER should receive HIGH intensity statin dose unless contraindicated. You will be required to document reason for non-treatment if statin daily dose does not meet guidelines. HIGH DOSE STATIN THERAPY DAILY Atorvastatin > than or = to 40 mg Rosuvastatin > than or = to 20 mg Amlodipine + Atorvastatin > than or = to 2.5/40 mg Ezetimibe + Simvastatin 10/80 mg Simvastatin 80mg Discharge Plan Admission Admit Date/Time: 01/29/24 13:25 Attending Provider: Miguel Hargrove Primary Care Provider: Brannon Orourke Consulting Providers: Ochoa Shaffer Discharge Orders/Prescriptions Prescriptions: Continued omeprazole 40 mg capsule,delayed release(DR/EC) 40 mg PO Q8H Patient Comments: TAKE 1 CAPSULE BY MOUTH EVERY DAY LAST REFILL UNTIL SEEN IN OFFICE gabapentin 600 mg tablet 600 mg PO TID quetiapine 400 mg tablet 800 mg PO QHS Jardiance 10 mg tablet 10 mg PO DAILY levothyroxine 50 mcg capsule 50 mcg PO DAILY lisinopril 10 mg tablet 10 mg PO DAILY rosuvastatin 40 mg tablet 40 mg PO DAILY Referrals / Follow Up: Brannon Orourke MD [Primary Care Provider] - Edison Shannon MD [Non-Staff] - Disposition Disposition (needs filled in before D/C Order can be placed): Home, Self Care Charges/Coding Visit Charges Inpatient E&M: 56253 Disch Hosp >30min
== END 2024-02-01 11:30 | disposition home or self-care (01) | DRG 775 ==
LOC: ED 13:44 → MS3 14:17
PROVIDERS: Admitting Provider Hospitalist; Emergency Provider Emergency Medicine; PCP Family Medicine; Visit Provider Family Medicine
DX: F10.239 Alcohol dependence with withdrawal, unspecified (principal); E03.9 Hypothyroidism, unspecified; Z68.41 Body mass index [BMI] 40.0-44.9, adult; E11.42 Type 2 diabetes mellitus with diabetic polyneuropathy; I10 Essential (primary) hypertension; E78.5 Hyperlipidemia, unspecified; K21.9 Gastro-esophageal reflux disease without esophagitis; F17.210 Nicotine dependence, cigarettes, uncomplicated; Y90.6 Blood alcohol level of 120-199 mg/100 ml; R31.9 Hematuria, unspecified; E66.813 Obesity, class 3; G47.00 Insomnia, unspecified; Z79.84 Long term (current) use of oral hypoglycemic drugs; Z79.890 Hormone replacement therapy; Z79.899 Other long term (current) drug therapy
CPT/HCPCS: 80048; 80053; 80307; 81001; 82077; 83690; 85027; 93005; 99283; 99406; A4216; J2405

== ENCOUNTER 2024-10-24 10:22 | Inpatient (IN) | payer MEDICAID, SELFPAY ==
[2024-10-24] VITALS (10 sets, daily range): BP systolic 88–160; BP diastolic 61–89; PULSE 69–103; RESP 14–19; TEMP 36.6–36.7; O2SAT 91–100; BMI 37.3; BMI 36.6
--- NOTE | 2024-10-24 10:50 | CT_ITS ---
PROCEDURE: BRAIN/HEAD WITHOUT CONTRAST 10/24/2024 REASON FOR EXAM: INTOXICATION, POSSIBLE FALL? TECHNIQUE: Procedure Code: CTBR Modality: CT Procedure: BRAIN/HEAD WITHOUT CONTRAST Coronal and Sagittal reconstruction series were provided. One or more dose reduction techniques were used (e.g., Automated exposure control, adjustment of the mA and/or kV according to patient size, use of iterative reconstruction technique. RADIATION DOSE SUMMARY: CTDlvol: 45 mGy DLP: 812 mGycm COMPARISON: April 07, 2018 FINDINGS: Brain: There is no evidence of hemorrhage, acute ischemia or mass. No extra- axial fluid collection, midline shift or mass effect. CSF Spaces: Mild generalized cerebral atrophy Sinuses/Mastoids: Clear Bones: No fracture CT/Brain/Head without Contrast IMPRESSION: No acute intracranial abnormality. Reading Location: [id number]
--- NOTE | 2024-10-24 10:50 | EKG12_ITS ---
Test Reason : ARRYTH Blood Pressure : */* mmHG Vent. Rate : 74 BPM Atrial Rate : 74 BPM P-R Int : 200 ms QRS Dur : 98 ms QT Int : 400 ms P-R-T Axes : 15 10 30 degrees QTcB Int : 444 ms Normal sinus rhythm Low voltage QRS Incomplete right bundle branch block Borderline ECG Confirmed by YANELIS MAKI, SUJATHA ([id number]), staff editor SHELDON FUNK ([id number]) on 10/26/2024 6:39:42 AM Referred By: Confirmed By: SUJATHA HILARIO MD
--- NOTE | 2024-10-24 10:50 | CT_ITS ---
PROCEDURE: ABDOMEN/PELVIS W IV CONT ONLY 10/24/2024 REASON FOR EXAM: ABDOMINAL PAIN, NAUSEA, VOMITING TECHNIQUE: Procedure Code: [id number] Modality: CT Procedure: ABDOMEN/PELVIS W IV CONT ONLY Coronal and Sagittal reconstruction series were provided. CONTRAST: Isovue-300 VOLUME: 100 mL One or more dose reduction techniques were used (e.g., Automated exposure control, adjustment of the mA and/or kV according to patient size, use of iterative reconstruction technique. RADIATION DOSE SUMMARY: CTDlvol: 18.5 mGy DLP: 1430.57 mGycm COMPARISON: Prior study dated April 10, 2018. FINDINGS: Lung bases: Mild dependent atelectasis Liver: Diffuse fatty infiltration. Borderline hepatomegaly. Gallbladder: Mildly distended. No definite gallstones are seen. Spleen: Normal size. Pancreas: Normal size without evidence of mass surrounding inflammation or ductal dilation. Adrenals: Unremarkable Kidneys: There are 2, nonobstructive intrarenal calculi in the lower pole calyx of the left kidney. The larger calculus measures 6.3 mm. Bladder: Urinary bladder is distended. Central prostatic calcifications. Bowel: Scattered sigmoid diverticula. Appendix: Unremarkable Lymph nodes: Unremarkable. Vasculature: Mild diffuse atherosclerotic calcifications are noted. Peritoneum / Retroperitoneum: Unremarkable Bones: Degenerative changes of the spine. CT/Abdomen/Pelvis W IV Cont ONLY IMPRESSION: Mild basilar atelectasis. Borderline hepatomegaly and fatty infiltration of the liver. Nonobstructive intrarenal calculi in the lower pole calyx of the left kidney. This is essentially unchanged. Reading Location: [place] [id number]
--- NOTE | 2024-10-24 10:52 | EX.ED.SAOD ---
HPI History of Present Illness Chief Complaint: ETOH Intox Narrative Narrative: Patient is a 59-year-old male presenting to the emergency department for detox from alcohol and Zanaflex. Patient has a past medical history of alcohol abuse since he was 13, hypertension, psychiatric pseudoseizures, bipolar 1 disorder, diabetes, suicide attempt, isopropyl alcohol poisoning. Patient states he drinks about 2 gallons of vodka daily. Reports that he also uses Zanaflex daily. Denies any other drug use including IV drugs or opiates. He denies any ingestion of other alcohols including isopropyl alcohol recently. Reports his last drink was at 9:30 AM this morning. is at bedside. He endorses nausea and vomiting over the past few days. Endorse intermittent abdominal pain. Denies headache, chest pain, SOB, fever, chills, dysuria or hematuria. [facility] Medical History Tobacco use Benign essential hypertension DM type 2 (diabetes mellitus, type 2) Continuous chronic alcoholism Home Medications ?Medication ?Instructions ?Recorded ?Last Taken ?Type empagliflozin 10 mg tablet 10 mg PO DAILY diabetes 01/29/24 Unknown History (Jardiance) gabapentin 600 mg tablet 600 mg PO TID nerve pain 01/29/24 Unknown History levothyroxine 50 mcg capsule 50 mcg PO DAILY thyroid 01/29/24 Unknown History lisinopril 10 mg tablet 10 mg PO DAILY blood pressure 01/29/24 Unknown History omeprazole 40 mg capsule,delayed 40 mg PO Q8H acid reflux 01/29/24 Unknown History release quetiapine 400 mg tablet 800 mg PO QHS sleep 01/29/24 Unknown History rosuvastatin 40 mg tablet 40 mg PO DAILY cholesterol 01/29/24 Unknown History budesonide-formoterol HFA 160 2 puff inhalation BID asthma 10/24/24 Unknown History mcg-4.5 mcg/actuation aerosol inhaler (Symbicort) Allergy/AdvReac Type Severity Reaction Status Date / Time amoxicillin (Amoxicillin) Allergy Anaphylaxis Verified 10/24/24 10:22 Penicillins Allergy Anaphylaxis Verified 10/24/24 10:22 Surgical History History of carpal tunnel surgery of right wrist History of carpal tunnel surgery of left wrist Hx of shoulder surgery History of cataract surgery Hx of neck surgery History of back surgery Social History Smoking Status: Current every day smoker tobacco type: cigarettes alcohol intake: current alcohol intake frequency: 3 or more drinks per day Alcohol type: hard liquor ROS ROS ED ROS Narrative see HPI EXAM Physical Exam Narrative Exam Narrative: Vital signs: Reviewed General: Alert and orientedx2, to self and place not time. No acute distress HEENT: Head is normocephalic and atraumatic, sinuses nontender, pupils equal round and reactive. Nares are patent. Oropharynx and throat exams normal. Neck: Supple without lymphadenopathy nontender Cardiovascular: Regular rate and rhythm, no murmurs. No rubs or gallops. Normal S1 and S2 Respiratory: Clear to auscultation bilaterally. No wheezes, rales, rhonchi Abdominal: Soft and mildly tender to palpation in the left upper and lower quadrants. Normal bowel sounds. No guarding or rebound. Nonsurgical abdomen Extremities: No tenderness. No bruising. Normal range of motion. Normal sensation. Skin: No rash or redness. Neurological: Cranial nerves II through XII are grossly intact. Normal strength and sensation. Normal cerebellar function. No asterixis. The rest of the physical exam is unremarkable Const Vital Signs: 10/24/24 10:22 10/24/24 10:22 10/24/24 11:22 Temperature 98 F Temperature Source Temporal Pulse Rate 69 78 Respiratory Rate 14 16 Blood Pressure 88/70 L 90/67 Blood Pressure Mean 76 74 Pulse Ox 98 97 Oxygen Delivery Method Room Air Room Air 10/24/24 13:00 10/24/24 14:06 Temperature 97.8 F Temperature Source Pulse Rate 89 94 Respiratory Rate 16 19 H Blood Pressure 101/64 97/61 Blood Pressure Mean 76 73 Pulse Ox 100 100 Oxygen Delivery Method Room Air MDM MDM MDM Narrative Medical decision making narrative: Patient is a 59-year-old male presenting to the emergency department for detox from alcohol and Zanaflex. Patient was seen and examined. Blood pressure is 88/70 on arrival. Other vitals are stable. Fluid bolus ordered. Patient denies multiple times taking any medications or drugs other than liquor and Zanaflex. Denies any isopropyl alcohol ingestion. Given the patient's abdominal pain, nausea, vomiting and hypotension CT abd ordered. CT brain also ordered. He is acting clinically intoxicated however will intermittenly have episodes where he takes longer to respond than expected. CBC with a mild leukocytosis of 12.5 and a normal hemoglobin. PT and PTT within normal limits. Ammonia within normal limits. CMP with mild transaminitis which is consistent with prior values. Lipase within normal limits. Glucose of 118. Mild hyponatremia of 132. Bicarb of 16.6 and anion gap of 20 with lactate of 3.2. Mild elevation of ketones at 0.9. Alcohol level of 239. I expect this is likely secondary to alcoholic ketoacidosis. CT brain with no acute intracranial abnormality. CT abdomen with no acute findings. IV thiamine given. D5 normal saline started. Patient reevaluated. Blood pressure better after fluids at 123/80. Patient is more awake and responsive. Was able to walk to the bathroom. Patient started endorsing some nausea with feelings of shakiness, Ativan and Zofran ordered. Discussed admission with the patient for detox and his alcoholic ketoacidosis. He is agreeable. Patient admitted to Dr. Treadwell for further management. Clinical impression: Alcoholic ketoacidosis Alcohol detox Abdominal pain Nausea History & Record Review Discussion w/independent historian: Patient and Significant other Additional record(s) reviewed:: Prior inpatient record and Prior ED visit Lab Data Attestation: I reviewed the patient's lab results. Labs: Laboratory Results - last 24 hr 10/24/24 10/24/24 10:49 11:13 WBC 12.5 H RBC 4.92 Hgb 16.0 Hct 44.3 MCV 90.0 MCH 32.5 H MCHC 36.1 H RDW Std Deviation 51.4 H RDW Coeff of Jeremy 15.9 H Plt Count 184 MPV 9.3 Immature Gran % (Auto) 0.500 Neut % (Auto) 76.5 H Lymph % (Auto) 16.4 L [place] % (Auto) 5.8 Eos % (Auto) 0.2 Baso % (Auto) 0.6 Absolute Neuts (auto) 9.6 H Absolute Lymphs (auto) 2.05 Nucleated RBC % 0 PT 13.7 INR 1.0 APTT 26.6 Sodium 132 L Potassium 4.3 Chloride 95 L Carbon Dioxide 16.6 L Anion Gap 20 H BUN 15 Creatinine 0.82 Estim Creat Clear Calc 122.58 Est GFR (MDRD) Non-Af 102 BUN/Creatinine Ratio 17.9 Glucose 118 H Serum Osmolality 320 H Lactic Acid 3.2 H* Calcium 8.9 Phosphorus 2.9 Magnesium 2.2 Total Bilirubin 0.59 AST 55 H ALT 51 H Alkaline Phosphatase 60 Ammonia 20.1 Total Protein 7.4 Albumin 4.6 Globulin 2.8 Albumin/Globulin Ratio 1.6 Lipase 37 b-Hydroxybutyric mmol/L 0.9 H Ethyl Alcohol 239.0 H ABG Data ABG results: ABG 10/24/24 11:53 Specimen Type CATHLEEN Sample Site Not entered O2 % 21.0 VBG pH 7.39 VBG pO2 125 H VBG HCO3 15 L VBG Total CO2 16 L VBG O2 Sat (Calc) 99 H VBG Base Excess -10 L POC Mix VBG pCO2 Pt Tmp 24.9 L O2 Delivery Device Not entered Radiography Diagnostic Testing: Clinical Impression(s) from Imaging Studies Abdomen/Pelvis CT 10/24/24 10:50 IMPRESSION: Mild basilar atelectasis. Borderline hepatomegaly and fatty infiltration of the liver. Nonobstructive intrarenal calculi in the lower pole calyx of the left kidney. This is essentially unchanged. Reading Location: [facility] 10/24/24 10:50 IMPRESSION: No acute intracranial abnormality. Reading Location: [facility] Chest X-Ray 10/24/24 11:40 IMPRESSION: No acute abnormality. Reading Location: [facility] Discharge Plan Disposition Disposition: Acute Care Hospital [facility] Discharge Date/Time: 10/24/24 15:36
[2024-10-24] MEDS: 0.9% Normal Saline (1000mL) 1,000 ML 1000 ML IV (11:12)
[2024-10-24 11:18] LABS: Hematocrit 44.3 % (40-54); Hemoglobin 16.0 g/dL (13.0-16.5); Immature Granulocytes Count 0.060 X10^3/uL (0.0-0.0); Mean Corp Hgb Conc 36.1 g/dL (32-36); Mean Corpuscular Volume 90.0 fL (80-94); Mean Platelet Vol. 9.3 fl (6.2-12.0); NRBC Flagged by Analyzer 0 % (0-5); Platelet Count 184 K/mm3 (150-450); RBC Distribution Width CV 15.9 % (11.6-14.6); RBC Distribution Width SD 51.4 fl (35.1-43.9); Red Blood Count 4.92 M/mm3 (4.6-6.2); White Blood Count 12.5 K/mm3 (4.4-11.0)
[2024-10-24 11:26] LABS: Partial Thromboplast Time 26.6 Seconds (24.1-36.2); Prothrombin Time (Protime)PT. 13.7 SECONDS (11.7-14.9)
--- NOTE | 2024-10-24 11:40 | RAD_ITS ---
PROCEDURE: CHEST 1 VIEW (PORTABLE) 10/24/2024 REASON FOR EXAM: AMS TECHNIQUE: Frontal view of the chest. COMPARISON: April 10, 2018 FINDINGS: Hardware: EKG leads Heart: Normal Lungs: Subsegmental atelectasis right lung base. No consolidation or mass. Small granulomas in the left upper lobe. Bones: The bones are unremarkable. RAD/Chest 1 View (Portable) IMPRESSION: No acute abnormality. Reading Location: [id number]
[2024-10-24 11:43] LABS: AST(SGOT) 55 U/L (<=37); Alanine Aminotransfer ALT/SGPT 51 U/L (<=46); Albumin, Serum 4.6 g/dL (3.5-5.0); Alkaline Phosphatase 60 U/L (40-129); Anion Gap 20 (5-15); BUN 15 mg/dL (4-19); BUN/Creat Ratio 17.9 RATIO (10-20); Calcium,Total 8.9 mg/dL (7.6-11.0); Carbon Dioxide 16.6 mmol/L (21.0-32.0); Chloride 95 mmol/L (98-108); Estimated Creatinine Clearance 122.58 ml/min (50-250); Globulin 2.8 g/dL (2.2-4.2); Glucose 118 mg/dL (70-99); Lipase 37 U/L (13-75); Potassium 4.3 mmol/L (3.3-5.1)
[2024-10-24 11:53] LABS: BETA-HYDROXYBUTYRATE 0.9 mmol/L (0.0-0.3)
[2024-10-24 11:58] LABS: FI02 21.0; SITE Not entered; VBG BASE EXCESS -10 mmol/L (-1.0-3.5); VBG PO2 125 mmHg (25-40); VBG SO2 99 % (50-70); VBG TCO2 16 mmol/L (23-33)
[2024-10-24 12:02] LABS: Ammonia 20.1 umol/L (16-60)
[2024-10-24 12:03] LABS: Alcohol, Blood (Medical)-Serum 239.0 mg/dL (<=10.0)
[2024-10-24 12:51] LABS: Osmolality, Serum 320 mOsm/KG (275-295)
[2024-10-24] MEDS: Thiamine Hydrochloride 100 MG in 0.9% Normal Saline (50mL Bag) 50 ML 200 MG IV (13:30)
[2024-10-24 13:54] LABS: Magnesium 2.2 mg/dL (1.5-2.2)
[2024-10-24] MEDS: Dextrose 5%/0.9% NaCl 1,000 ML 100 ML IV (14:05)
--- NOTE | 2024-10-24 14:18 | HP.PCM.HOS_ITS ---
[facility] - General General Date of Admission: 10/24/24 Date of Service: 10/24/24 Chief Complaint: Requesting alcohol detox HPI Narrative JACKELINE MERA, is a 59-year-old male history of hypertension, GERD, COPD, diabetes, hypothyroidism, tobacco use, chronic alcohol abuse, pseudoseizures, bipolar disorder who presented to [facility] ED 10/24/2024 for detox from alcohol and Zanaflex. Has been abusing alcohol since 13 years old and drinks about 2 gallons of vodka daily and also uses Zanaflex daily but denies any other drug use. Has a history of ingesting isopropyl alcohol but denies any ingestion of other alcohols recently. Last drink 9:30 AM. Has had some intermittent abdominal pain as well as nausea and vomiting over the past several days. In the ED patient afebrile, heart rate 69 and blood pressure initially 88/78, respiratory rate of 14 and pulse ox 98% on room air. CBC with a white count of 12, CMP with a sodium of 132, bicarb of 16.6 and a gap of 20, AST 55 ALT 55, patient had a beta hydroxybutyrate of 0.9 with normal pH of 7.39, bicarb of 15 and pCO2 of 24.9 on room air, lipase and ammonia within normal limits. Serum osmole's 320, lactic acid 3.2 and alcohol of 239 at 12 PM, chest x-ray with no acute abnormalities and CT head no acute abnormalities. Patient did have CT of the abdomen/pelvis with mild bibasilar atelectasis, borderline hepatomegaly and fatty infiltration of liver and nonobstructive intrarenal calculi essentially unchanged. UA and UDS ordered but not obtained. The above hospitalist contacted for admission. At the time my exam patient denies any abdominal pain, nausea or vomiting, denies any acute complaints but said he knows that around 5 PM he is going to go to full-blown withdrawal, has tried to detox himself before and has had seizures at home and DTs with feeling his skin crawling and auditory hallucinations, not presently experiencing any of these right now. Has never had a withdrawal seizure when he is gone through medical detox per patient. Patient's only complaint is some abdominal girth increase over the past few months with no acute changes. Reports he eats consistently and drinks Powerade but probably does not eat like he should just given his drinking PFSH Medical History Tobacco use Benign essential hypertension DM type 2 (diabetes mellitus, type 2) Continuous chronic alcoholism Home Medications ?Medication ?Instructions ?Recorded ?Last Taken ?Type empagliflozin 10 mg tablet 10 mg PO DAILY 01/29/24 Unk nown History (Jardiance) gabapentin 600 mg tablet 600 mg PO TID 01/29/24 Unkno wn History levothyroxine 50 mcg capsule 50 mcg PO DAILY 01/29/24 Unknown History lisinopril 10 mg tablet 10 mg PO DAILY 01/29/24 Unkn own History omeprazole 40 mg capsule,delayed 40 mg PO Q8H 01/29/24 Unknown History release quetiapine 400 mg tablet 800 mg PO QHS 01/29/24 Unkno wn History rosuvastatin 40 mg tablet 40 mg PO DAILY 01/29/24 Unkn own History budesonide-formoterol HFA 160 2 puff inhalation BID Unknown History mcg-4.5 mcg/actuation aerosol inhaler (Symbicort) Allergy/AdvReac Type Severity Reaction Status Date / Time amoxicillin (Amoxicillin) Allergy Anaphylaxis Verified 10/24/24 10:22 Penicillins Allergy Anaphylaxis Verified 10/24/24 10:22 Surgical History History of carpal tunnel surgery of right wrist History of carpal tunnel surgery of left wrist Hx of shoulder surgery History of cataract surgery Hx of neck surgery History of back surgery Social History Smoking Status: Current every day smoker tobacco type: cigarettes alcohol intake: current alcohol intake frequency: 3 or more drinks per day Alcohol type: hard liquor ROS ROS Narrative General: Denies fever/chills HENT: Denies headache, denies stuffy nose, denies sore throat EYES: Denies changes in vision Resp: Denies cough, denies shortness of breath Cardiac: Denies chest pain GI: Denies abdominal pain, denies changes in bowel, denies nausea/vomiting : Denies changes in urination Extremity: Denies swelling MSK: Denies weakness Neuro: Denies any numbness/tingling Heme: Denies any bleeding or bruising Skin: Denies rashes Psychiatric: No complaints voiced Vital Signs Vital Signs Vital Signs: 10/24/24 10:22 10/24/24 10:22 10/24/24 11:22 Temperature 98 F Temperature Source Temporal Pulse Rate 69 78 Respiratory Rate 14 16 Blood Pressure 88/70 L 90/67 Blood Pressure Mean 76 74 Pulse Ox 98 97 Oxygen Delivery Method Room Air Room Air 10/24/24 13:00 10/24/24 14:06 Temperature 97.8 F Temperature Source Pulse Rate 89 94 Respiratory Rate 16 19 H Blood Pressure 101/64 97/61 Blood Pressure Mean 76 73 Pulse Ox 100 100 Oxygen Delivery Method Room Air Weight Weight: 114.6 kg Body Mass Index (BMI) 37.3 Physical Exam Narrative General: Alert, oriented, no apparent distress HEENT: Atraumatic, normocephalic Eyes: Anicteric, normal conjunctiva, extraocular movements grossly intact Neck: Supple Respiratory: Scattered wheezes, normal respiratory effort Cardiovascular: Regular rate and rhythm GI: Soft, nontender, nondistended Extremities: No significant pitting peripheral edema Musculoskeletal: Moving all extremities Neuro: No overt focal neurological deficits Skin: No rashes appreciated Psych: Cooperative Results Lab / Micro Data 10/24/24 10:49 10/24/24 10:49 Labs: Laboratory Results - last 24 hr 10/24/24 10:49: WBC 12.5 H, RBC 4.92, Hgb 16.0, Hct 44.3, MCV 90.0, MCH 32.5 H, MCHC 36.1 H, RDW Std Deviation 51.4 H, RDW Coeff of Jeremy 15.9 H, Plt Count 184, MPV 9.3, Immature Gran % (Auto) 0.500, Neut % (Auto) 76.5 H, Lymph % (Auto) 16.4 L, Rock % (Auto) 5.8, Eos % (Auto) 0.2, Baso % (Auto) 0.6, Absolute Neuts (auto) 9.6 H, Absolute Lymphs (auto) 2.05, Nucleated RBC % 0, PT 13.7, INR 1.0, APTT 26.6, Sodium 132 L, Potassium 4.3, Chloride 95 L, Carbon Dioxide 16.6 L, Anion Gap 20 H, BUN 15, Creatinine 0.82, Estim Creat Clear Calc 122.58, Est GFR (MDRD) Non-Af 102, BUN/Creatinine Ratio 17.9, Glucose 118 H, Serum Osmolality 320 H, L actic Acid 3.2 H*, Calcium 8.9, Phosphorus 2.9, Magnesium 2.2, Total Bilirubin 0.59, AST 55 H, ALT 51 H, Alkaline Phosphatase 60, Total Protein 7.4, Albumin 4.6, Globulin 2.8, Albumin/Globulin Ratio 1.6, Lipase 37, b-Hydroxybutyric mmol/L 0.9 H, Ethyl Alcohol 239.0 H 10/24/24 11:13: Ammonia 20.1 ABG Data ABG results: ABG 10/24/24 11:53 Specimen Type CATHLEEN Sample Site Not entered O2 % 21.0 VBG pH 7.39 VBG pO2 125 H VBG HCO3 15 L VBG Total CO2 16 L VBG O2 Sat (Calc) 99 H VBG Base Excess -10 L POC Mix VBG pCO2 Pt Tmp 24.9 L O2 Delivery Device Not entered Imaging Radiology Impression Abdomen/Pelvis CT 10/24/24 10:50 IMPRESSION: Mild basilar atelectasis. Borderline hepatomegaly and fatty infiltration of the liver. Nonobstructive intrarenal calculi in the lower pole calyx of the left kidney. This is essentially unchanged. Reading Location: [facility] 10/24/24 10:50 IMPRESSION: No acute intracranial abnormality. Reading Location: [facility] Chest X-Ray 10/24/24 11:40 IMPRESSION: No acute abnormality. Reading Location: [facility] Assessment & Plan Assessment/Plan (1) Alcohol withdrawal: QUALIFIERS: Complication of substance-induced condition: with delirium Qualified Code(s): F10.231 - Alcohol dependence with withdrawal delirium PLAN: Plan #Alcohol use disorder - We will begin CIWA every 4 for 24 hours, then every 6 for 24 hours, then every 12 until discharge -Will begin phenobarbital taper -Patient takes gabapentin 600 mg 3 times daily regularly, given soft blood pressures and need to start phenobarb will start at 300 TID and uptitrate as BP tolerated and as needed -Will start Bentyl and hydroxyzine as needed as well as loperamide as needed -Trazodone 100 mg p.o. nightly as needed sleep -Begin thiamine and folic acid supplementation -Zofran as needed for nausea -Case management consult to assist with discharge planning -EtOH 239 -UDS ordered - Regarding Zanaflex patient reports he takes 1 every couple of days and does not take more than that or take any excessively, denies any other substance use #Type 2 diabetes mellitus -Glucose checks and sliding scale insulin - Holding home oral hypoglycemics #Hx COPD - Suspect patient has COPD, he takes to regular inhaler but is unsure what it is for -Will continue home inhaler -Albuterol as needed -Incentive spirometer #Hypothyroidism -Continue Synthroid #Hypertension - Patient hypotensive -Blood pressure responding to IV fluids -Hold home lisinopril - Will check TSH, patient reports compliance with his levothyroxine but will check to verify # Bipolar disorder -Per chart -Continue home quetiapine #GERD -Continue PPI #Tobacco use -Advise cessation -Agreeable to trying nicotine gum, this has been ordered #DVT ppx: Raquel Treadwell MD Charges/Coding Visit Charges Inpatient E&M: 71774 Init Hosp L2
[2024-10-24 15:05] LABS: Reflex Lactate? Y
[2024-10-24] MEDS: 0.9% Saline Lock 10 ML Syringe IV (16:09)
[2024-10-24] MEDS: Nicotine 4mg Gum (PBKC) 4 MG GUM PO ×2 (16:10→17:38)
[2024-10-24] MEDS: 0.9% Normal Saline (1000mL) 1,000 ML 100 ML IV (16:11)
[2024-10-24] MEDS: hydrOXYzine PAM 25 MG Capsule 50 MG PO (17:35)
[2024-10-24 19:11] LABS: Mucous, Urine 0 SEEN /hpf (<or=2+); Squamous Epithelial Cells - UA 0 SEEN /hpf (0-5)
[2024-10-24 19:33] LABS: Prothrombin Time (Protime)PT. 13.3 SECONDS (11.7-14.9)
[2024-10-24 19:55] LABS: Barbiturate Urine PRESUMPTIVE POSITIVE (< 200 ng/mL); Benzodiazepine Urine NEGATIVE (< 200 ng/mL); PCP Urine NEGATIVE (< 25 ng/mL); THC Urine PRESUMPTIVE POSITIVE (< 50 ng/mL)
[2024-10-24] MEDS: 0.9% Normal Saline (1000mL) 1,000 ML 999 ML IV (20:29)
--- NOTE | 2024-10-24 20:36 | PCM.HOSP.N ---
Hospitalist Note Notified of lactic increasing from 3.2 to 3.7 after receiving 1L IVF bolus in ER and in the process of receiving ordered IVF at 100ml/hr x2L. Afebrile, HR 103, BP 160/89, 93% on RmAir. Additional 1L 0.9%NS 1L x1 bolus now.
[2024-10-24 21:34] LABS: Color, Urine Yellow (Yellow); Glucose, Dipstick 1000 mg/dl (Normal); Ketone-Dipstick 15 mg/dl (Negative); Leukocyte Esterase-Dipstick Negative /ul (Negative); Nitrite-Dipstick Negative (Negative); Occult Blood-Urine 250 /ul (Negative); Protein-Dipstick 100 mg/dl (Negative); Specific Gravity, Urine 1.015 (1.002-1.030); Urine Bilirubin Dipstick Negative (Negative)
[2024-10-24 22:06] LABS: Red Blood Cells-Urine 5-10 SEEN /hpf (0-5)
[2024-10-25] VITALS (15 sets, daily range): BP systolic 130–175; BP diastolic 73–123; PULSE 85–101; RESP 15–18; TEMP 36.4–37.2; O2SAT 91–98
[2024-10-25] MEDS: hydrOXYzine PAM 25 MG Capsule 50 MG PO ×3 (00:22→13:50)
--- NOTE | 2024-10-25 02:04 | PCM.HOSP.N ---
Hospitalist Note BP has remained improved, elevated in fact. Will restart home lisinopril.
[2024-10-25] MEDS: 0.9% Normal Saline (1000mL) 1,000 ML 100 ML IV (03:26)
[2024-10-25] MEDS: Thiamine Hydrochloride 100 MG Tablet PO (08:11)
[2024-10-25 08:33] LABS: Hematocrit 41.8 % (40-54); Hemoglobin 15.0 g/dL (13.0-16.5); Immature Granulocytes Count 0.020 X10^3/uL (0.0-0.0); Mean Corp Hgb Conc 35.9 g/dL (32-36); Mean Corpuscular Volume 90.1 fL (80-94); Mean Platelet Vol. 9.5 fl (6.2-12.0); NRBC Flagged by Analyzer 0 % (0-5); Platelet Count 108 K/mm3 (150-450); RBC Distribution Width CV 15.8 % (11.6-14.6); RBC Distribution Width SD 52.1 fl (35.1-43.9); Red Blood Count 4.64 M/mm3 (4.6-6.2); White Blood Count 5.5 K/mm3 (4.4-11.0)
[2024-10-25 09:08] LABS: AST(SGOT) 50 U/L (<=37); Alanine Aminotransfer ALT/SGPT 46 U/L (<=46); Albumin, Serum 4.2 g/dL (3.5-5.0); Alkaline Phosphatase 53 U/L (40-129); Anion Gap 16 (5-15); BUN 14 mg/dL (4-19); BUN/Creat Ratio 19.0 RATIO (10-20); Calcium,Total 8.8 mg/dL (7.6-11.0); Carbon Dioxide 18.1 mmol/L (21.0-32.0); Chloride 100 mmol/L (98-108); Estimated Creatinine Clearance 140.36 ml/min (50-250); Globulin 2.5 g/dL (2.2-4.2); Glucose 76 mg/dL (70-99); Potassium 4.1 mmol/L (3.3-5.1)
--- NOTE | 2024-10-25 11:38 | ADDICTION ---
This video games storywriter attempted to meet with pt in his room. Pt was sleeping soundly, will meet tomorrow. This video games storywriter will attempt to meet with pt on 10/26 to complete assessments and d/c plan.
[2024-10-25] MEDS: Budesonide Respules 0.5 MG/2 ML AMPUL.NEB. INHALATION ×2 (14:46→20:00)
[2024-10-25] MEDS: Albuterol 2.5 MG/3 ML VIAL.NEB. INHALATION ×2 (14:46→20:00)
--- NOTE | 2024-10-25 15:35 | PN_ITS ---
Subjective Subjective Patient seen and examined with his nurse by his bedside. He complained of some tremors and said he felt like he was in withdrawal. He had no active complaints. He drinks 2 bottles of vodka a day. He has never been through withdrawal before. Review of systems otherwise negative. Objective Data Objective Data Vital Signs: Vital Signs Temp Pulse Resp BP Pulse Ox O2 Del Method 98.4 F 97 16 155/105 H 91 Room Air 10/25/24 12:11 10/25/24 12:18 10/25/24 12:11 10/25/24 13:12 10/25/24 12:11 10/25/24 13:57 Oxygen Delivery Method Room Air Weight: 248 lb 7.375 oz Body Mass Index (BMI) 36.6 Intake & Output: Intake and Output for Last 24 Hours 10/23/24 10/24/24 10/25/24 23:59 23:59 23:59 Intake Total 3502.66 / 3502.66 2226.67 / 2226.67 Balance 3502.66 / 3502.66 2226.67 / 2226.67 Lab / Micro Data 10/25/24 08:03 10/25/24 08:03 Labs: Laboratory Results - last 24 hr 10/24/24 16:32: POC Glucose 67 L 10/24/24 17:57: PT 13.3, INR 1.0, Lactic Acid 3.7 H* 10/24/24 18:57: Urine Color Yellow, Urine Clarity Clear, Urine pH 6.0, Ur Specific Clayton 1.015, Urine Protein 100 H, Urine Glucose (UA) 1000 H, Urine Ketones 15 H, Urine Occult Blood 250 H, Urine Nitrite Negative, Urine Bilirubin Negative, Urine Urobilinogen Normal, Ur Leukocyte Esterase Negative, Urine RBC 5-10 SEEN, Urine WBC 0-5 SEEN, Ur Squamous Epith Cells 0 SEEN, Urine Bacteria 0 SEEN, Urine Mucus 0 SEEN, Urine Opiates Screen NEGATIVE, U Buprenorphine Qual NEGATIVE, Ur Oxycodone Screen PRESUMPTIVE POSITIVE, Urine Methadone Screen NEGATIVE, Urine Fentanyl Screen NEGATIVE, Ur Barbiturates Screen PRESUMPTIVE POSITIVE, Ur Phencyclidine Scrn NEGATIVE, Ur Amphetamines Screen NEGATIVE, U Benzodiazepines Scrn NEGATIVE, Urine Cocaine Screen NEGATIVE, U Cannabinoids Screen PRESUMPTIVE POSITIVE 10/24/24 20:53: POC Glucose 75 10/25/24 06:03: POC Glucose 83 10/25/24 08:03: WBC 5.5, RBC 4.64, Hgb 15.0, Hct 41.8, MCV 90.1, MCH 32.3 H, MCHC 35.9, RDW Std Deviation 52.1 H, RDW Coeff of Jeremy 15.8 H, Plt Count 108 L, MPV 9.5, Immature Gran % (Auto) 0.400, Neut % (Auto) 71.2 H, Lymph % (Auto) 17.4 L, [place] % (Auto) 9.4, Eos % (Auto) 0.9, Baso % (Auto) 0.7, Absolute Neuts (auto) 3.9, Absolute Lymphs (auto) 0.96, Nucleated RBC % 0, Sodium 134, Potassium 4.1, Chloride 100, Carbon Dioxide 18.1 L, Anion Gap 16 H, BUN 14, Creatinine 0.71, Estim Creat Clear Calc 140.36, Est GFR (MDRD) Non-Af 106, BUN/Creatinine Ratio 19.0, Glucose 76, Lactic Acid < 1.0, Calcium 8.8, Total Bilirubin 1.19, AST 50 H , ALT 46, Alkaline Phosphatase 53, Total Protein 6.7, Albumin 4.2, Globulin 2.5, Albumin/Globulin Ratio 1.7, TSH 3.040 10/25/24 11:12: POC Glucose 82 Physical Exam Const alert, oriented x3, no apparent distress and well nourished Constitutional Narrative: Class I Obesity. General Appearance: cooperative HEENT normocephalic, head/scalp atraumatic, moist oral mucous membranes and oropharynx normal Eyes EOMs intact bilaterally Neck no lymphadenopathy and supple Lymph Lymphatic: no lymphedema noted Resp normal respiratory effort, normal air movement and clear to auscultation bilaterally Cardio regular rate, regular rhythm, S1 normal heart sound, S2 normal heart sound and no murmurs GI normal to inspection, nondistended, normoactive bowel sounds, soft to palpation, non-tender and non-distended Extremity normal capillary refill, no clubbing, cyanosis or edema and no calf tenderness General Extremity: no tenderness to palpation of joints or extremities Skin General Skin Exam: no breakdown Neuro CN's II-XII intact bilaterally and no focal motor deficits Neuro Narrative: has some mild tremors of upper extremities Motor Exam: general weakness Psych thought process normal and cooperative Appearance: appropriate Assessment & Plan Assessment/Plan (1) Desire for detoxification: PLAN: Plan #Acute alcohol withdrawal * on alcohol withdrawal protocol with phenobarbital. * On thiamine, folic acid and Multivite. Adjunctive meds for symptomatic relief. * Monitor CIWA score. * #Type 2 diabetes mellitus, oral meds on hold. Insulin sliding scale. Checks ACHS. #History of COPD: Not in exacerbation. Breathing treatments bronchodilators. #Hypothyroidism: On Synthroid #Hypertension: Patient was hypotensive on admission and so hydrated with IV fluids which she responded to. Lisinopril was held but subsequently resumed as BP went up. IV hydralazine. #History of bipolar disorder: On Seroquel #GERD: PPI DVT prophylaxis: SCDs Charges/Coding Visit Charges Inpatient E&M: 56612 Subs Hosp L2
[2024-10-26] VITALS (9 sets, daily range): BP systolic 108–141; BP diastolic 76–97; PULSE 86–94; RESP 14–18; TEMP 36.5–36.9; O2SAT 92–98
[2024-10-26] MEDS: Budesonide Respules 0.5 MG/2 ML AMPUL.NEB. INHALATION ×2 (06:57→18:35)
[2024-10-26] MEDS: Albuterol 2.5 MG/3 ML VIAL.NEB. INHALATION ×3 (06:57→18:35)
[2024-10-26] MEDS: Thiamine Hydrochloride 100 MG Tablet PO (08:52)
--- NOTE | 2024-10-26 09:32 | PN_ITS ---
Subjective Subjective Patient seen and examined. He had no active complaints. Review of systems is otherwise negative. He has remained hemodynamically stable. Objective Data Objective Data Vital Signs: Vital Signs Temp Pulse Resp BP Pulse Ox O2 Del Method 98.2 F 91 14 141/88 H 93 Room Air 10/26/24 08:49 10/26/24 08:49 10/26/24 08:49 10/26/24 08:49 10/26/24 08:49 10/26/24 08:49 Oxygen Delivery Method Room Air Weight: 248 lb 7.375 oz Body Mass Index (BMI) 36.6 Intake & Output: Intake and Output for Last 24 Hours 10/24/24 10/25/24 10/26/24 23:59 23:59 23:59 Intake Total 3502.66 / 3502.66 2786.67 / 2786.67 Balance 3502.66 / 3502.66 2786.67 / 2786.67 Lab / Micro Data 10/25/24 08:03 10/25/24 08:03 Labs: Laboratory Results - last 24 hr 10/25/24 11:12: POC Glucose 82 10/25/24 16:28: POC Glucose 87 10/25/24 20:57: POC Glucose 115 H 10/26/24 08:11: POC Glucose 93 Physical Exam Const alert, oriented x3, no apparent distress and well nourished Constitutional Narrative: Class I Obesity. General Appearance: cooperative HEENT normocephalic, head/scalp atraumatic, moist oral mucous membranes and oropharynx normal Eyes EOMs intact bilaterally Neck no lymphadenopathy and supple Lymph Lymphatic: no lymphedema noted Resp normal respiratory effort, normal air movement and clear to auscultation bilaterally Cardio regular rate, regular rhythm, S1 normal heart sound, S2 normal heart sound and no murmurs GI normal to inspection, nondistended, normoactive bowel sounds, soft to palpation, non-tender and non-distended Extremity normal capillary refill, no clubbing, cyanosis or edema and no calf tenderness General Extremity: no tenderness to palpation of joints or extremities Skin General Skin Exam: no breakdown Neuro CN's II-XII intact bilaterally and no focal motor deficits Motor Exam: general weakness Psych thought process normal and cooperative Appearance: appropriate Assessment & Plan Assessment/Plan (1) Desire for detoxification: PLAN: Plan #Acute alcohol withdrawal * on alcohol withdrawal protocol with phenobarbital. * On thiamine, folic acid and Multivite. Adjunctive meds for symptomatic relief. * Monitor CIWA score. * #Type 2 diabetes mellitus, oral meds on hold. Insulin sliding scale. Checks ACHS. #History of COPD: Not in exacerbation. Breathing treatments bronchodilators. #Hypothyroidism: On Synthroid #Hypertension: on lisinopril. IV hydralazine. #History of bipolar disorder: On Seroquel #GERD: PPI DVT prophylaxis: SCDs Charges/Coding Visit Charges Inpatient E&M: 65285 Subs Hosp L2
--- NOTE | 2024-10-26 11:19 | ADDICTION ---
?Met with pt to complete RAMP assessments. Had discussion with pt about his extensive hx with alcohol and his readiness for recovery. He reports he lives in [place] and has a therapist at [facility]. He plans to continue services there.?
[2024-10-27 05:38] VITALS: BP 142/82; PULSE 79; RESP 18; TEMP 36.8; O2SAT 92
[2024-10-27] MEDS: Albuterol 2.5 MG/3 ML VIAL.NEB. INHALATION (07:02)
[2024-10-27] MEDS: Budesonide Respules 0.5 MG/2 ML AMPUL.NEB. INHALATION (07:02)
[2024-10-27 07:08] VITALS: PULSE 79; RESP 14
[2024-10-27 08:13] VITALS: BP 127/88; PULSE 83; RESP 18; TEMP 36.6; O2SAT 95
[2024-10-27] MEDS: Thiamine Hydrochloride 100 MG Tablet PO (08:16)
--- NOTE | 2024-10-27 10:41 | DS.PCM_ITS ---
Providers Date of Admission: 10/24/24 Date of Discharge: 10/27/24 Primary Care Physician: Dr. Brannon Orourke MD Reason For Visit: ALCOHOL DETOX, ELEVATED LACTIC ACID Diagnosis Discharge Diagnosis (1) Desire for detoxification: Status: Acute Plan #Acute alcohol withdrawal * on alcohol withdrawal protocol with phenobarbital. * On thiamine, folic acid and Multivite. Adjunctive meds for symptomatic relief. * Monitor CIWA score. * #Type 2 diabetes mellitus, oral meds on hold. Insulin sliding scale. Checks ACHS. #History of COPD: Not in exacerbation. Breathing treatments bronchodilators. #Hypothyroidism: On Synthroid #Hypertension: on lisinopril. IV hydralazine. #History of bipolar disorder: On Seroquel #GERD: PPI DVT prophylaxis: SCDs Medications at Discharge Home Medications empagliflozin 10 mg tablet (Jardiance) 10 mg PO DAILY diabetes 01/29/24 gabapentin 600 mg tablet 600 mg PO TID nerve pain 01/29/24 levothyroxine 50 mcg capsule 50 mcg PO DAILY thyroid 01/29/24 lisinopril 10 mg tablet 10 mg PO DAILY blood pressure 01/29/24 omeprazole 40 mg capsule,delayed release 40 mg PO Q8H acid reflux 01/29/24 quetiapine 400 mg tablet 800 mg PO QHS sleep 01/29/24 rosuvastatin 40 mg tablet 40 mg PO DAILY cholesterol 01/29/24 budesonide-formoterol HFA 160 mcg-4.5 mcg/actuation aerosol inhaler (Symbicort) 2 puff inhalation BID asthma 10/24/24 Hospital Course Operations None Procedures None Summary of Care Provided Minutes Spent on Discharge: 55 Hospital Course: Patient is a 59 y/o male with a PMh as outlined who was admitted for acute alcohol detox. Patient had been drinking alcohol since he was 13 years old and drank about 2 gallons of vodka daily and also used Zanaflex daily. He denied any other recreational drug use. His last drink was 9:30 AM on the day of admission. He admitted to intermittent abdominal pain, nausea and vomiting for several days prior to admission. Labs were significant for bicarb of 16.6 and anion gap of 20. ABG done showed pH of 7.39 with bicarb of 15 and pCO2 of 24.9. Lipase and ammonia levels were within normal limits.; Was 239. Chest x-ray showed no acute cardiopulmonary pathology and CT brain showed no acute intracranial pathology. CT of the abdomen and pelvis done showed mild basilar atelectasis and borderline hepatomegaly and fatty infiltration of the liver as well as nonobstructive intrarenal calculi which were unchanged. Urine drug screen was negative. He was admitted and managed for acute alcohol detox with potential for withdrawal. He was started on alcohol withdrawal protocol with phenobarbital. He tolerated the 3-day detox process and felt much better. He was discharged home on 10/27/2024. He is to follow-up with his primary care doctor and follow-up with [facility] on outpatient basis for help with his addiction. Patient was seen and examined prior to discharge. He had no complaints and felt well. He had an uneventful night and was ready to be discharged home. Review of systems otherwise negative. Labs and vitals reviewed. Home medication reviewed and reconciled. Physical Exam Const alert, oriented x3, no apparent distress and well nourished Constitutional Narrative: Class I Obesity. General Appearance: cooperative and comfortable HEENT normocephalic, head/scalp atraumatic, hearing grossly normal bilaterally, moist oral mucous membranes and oropharynx normal Mouth: oral and palatal mucosa normal Eyes EOMs intact bilaterally Neck no lymphadenopathy and supple Lymph Lymphatic: no lymphedema noted Resp normal respiratory effort, normal air movement and clear to auscultation bilaterally Cardio regular rate, regular rhythm, S1 normal heart sound, S2 normal heart sound and no murmurs GI normal to inspection, nondistended, normoactive bowel sounds, soft to palpation, non-tender and non-distended Extremity normal to inspection, full ROM, normal capillary refill, no clubbing, cyanosis or edema and no calf tenderness General Extremity: no tenderness to palpation of joints or extremities Skin no rashes or lesions noted General Skin Exam: no breakdown Neuro oriented x3, CN's II-XII intact bilaterally, moves all extremities and no focal motor deficits Sensorium / Orientation: awake Motor Exam: general weakness Psych thought process normal and cooperative Appearance: appropriate Weight / BMI Weight Weight: 248 lb 7.375 oz Body Mass Index (BMI) 36.6 ABG / Lab / Microbiology Data 10/25/24 08:03 10/25/24 08:03 Laboratory: Laboratory Results - last 24 hr 10/26/24 16:20: POC Glucose 128 H 10/26/24 21:03: POC Glucose 89 10/27/24 06:35: POC Glucose 94 D/C Instructions Discharge Activity: Return to Normal Activity Weight Bearing Status: Weight bearing as tolerated Call your doctor if you observe: Fever of 101 or Higher, Shortness of breath, Dizziness, Swelling in the ankles and Chest pain DC O2, CPAP, BIPAP Needs Home O2 Discharge instructions: No DC home with Oxygen: No Meaningful Use Info Meaningful Use Meaningful Use Diagnoses (Choose all that apply): None applicable Discharge Plan Admission Admit Date/Time: 10/24/24 14:19 Primary Reason for Your Visit: acute alcohol withdrawal Attending Provider: Milly Ayala Primary Care Provider: Brannon Orourke Consulting Providers: Leah Treadwell Instructions Patient Instructions: Alcohol Withdrawal: What to Expect Discharge Orders/Prescriptions Prescriptions: Continued budesonide-formoterol [Symbicort] 160-4.5 mcg/actuation HFA aerosol inhaler 2 puff INHALATION BID omeprazole 40 mg capsule,delayed release(DR/EC) 40 mg PO Q8H Patient Comments: TAKE 1 CAPSULE BY MOUTH EVERY DAY LAST REFILL UNTIL SEEN IN OFFICE gabapentin 600 mg tablet 600 mg PO TID quetiapine 400 mg tablet 800 mg PO QHS Jardiance 10 mg tablet 10 mg PO DAILY levothyroxine 50 mcg capsule 50 mcg PO DAILY lisinopril 10 mg tablet 10 mg PO DAILY rosuvastatin 40 mg tablet 40 mg PO DAILY Referrals / Follow Up: Brannon Orourke MD [Primary Care Provider] - In 1 Week Disposition Disposition (needs filled in before D/C Order can be placed): Home, Self Care Charges/Coding Visit Charges Inpatient E&M: 19653 Disch Hosp >30min
--- NOTE | 2024-10-27 10:41 | DCINST_ITS ---
Discharge Instructions DC O2, CPAP, BIPAP needs Home O2 Discharge instructions: No Dressing / Incision Discharge Activity: Return to Normal Activity Weight Bearing Status: Weight bearing as tolerated Dressing / Incision Call your doctor if you observe: Fever of 101 or Higher, Shortness of breath, Dizziness, Swelling in the ankles and Chest pain Follow Up Care Test Results: Test results from this visit will be discussed in further detail at your follow- up appointment, if applicable. Discharge Plan Admission Admit Date/Time: 10/24/24 14:19 Primary Reason for Your Visit: acute alcohol withdrawal Attending Provider: Milly Ayala Primary Care Provider: Brannon Orourke Consulting Providers: Leah Treadwell Instructions Patient Instructions: Alcohol Withdrawal: What to Expect Discharge Orders/Prescriptions Prescriptions: Continued budesonide-formoterol [Symbicort] 160-4.5 mcg/actuation HFA aerosol inhaler 2 puff INHALATION BID omeprazole 40 mg capsule,delayed release(DR/EC) 40 mg PO Q8H Patient Comments: TAKE 1 CAPSULE BY MOUTH EVERY DAY LAST REFILL UNTIL SEEN IN OFFICE gabapentin 600 mg tablet 600 mg PO TID quetiapine 400 mg tablet 800 mg PO QHS Jardiance 10 mg tablet 10 mg PO DAILY levothyroxine 50 mcg capsule 50 mcg PO DAILY lisinopril 10 mg tablet 10 mg PO DAILY rosuvastatin 40 mg tablet 40 mg PO DAILY Referrals / Follow Up: Brannon Orourke MD [Primary Care Provider] - In 1 Week Disposition Disposition (needs filled in before D/C Order can be placed): Home, Self Care
[2024-10-27 12:12] VITALS: BP 109/72; PULSE 80; RESP 18; TEMP 36.6; O2SAT 94
== END 2024-10-27 13:03 | disposition home or self-care (01) | DRG 775 ==
LOC: ED 10:51 → PCU 15:09
PROVIDERS: Admitting Provider Internal Medicine; Emergency Provider Student in an Organized Health Care Education/Training Program; PCP Family Medicine; Visit Provider Student in an Organized Health Care Education/Training Program
DX: F10.239 Alcohol dependence with withdrawal, unspecified (principal); E87.29 Other acidosis; E11.9 Type 2 diabetes mellitus without complications; J44.9 Chronic obstructive pulmonary disease, unspecified; F31.9 Bipolar disorder, unspecified; E03.9 Hypothyroidism, unspecified; I10 Essential (primary) hypertension; K76.0 Fatty (change of) liver, not elsewhere classified; E66.811 Obesity, class 1; F17.210 Nicotine dependence, cigarettes, uncomplicated; K21.9 Gastro-esophageal reflux disease without esophagitis; I95.9 Hypotension, unspecified; Z91.51 Personal history of suicidal behavior; Z79.84 Long term (current) use of oral hypoglycemic drugs; Z79.899 Other long term (current) drug therapy; Z79.890 Hormone replacement therapy; Z79.51 Long term (current) use of inhaled steroids; Z68.36 Body mass index [BMI] 36.0-36.9, adult
CPT/HCPCS: 36415; 70450; 71045; 74177; 80053; 80307; 81001; 82010; 82077; 82140; 82803; 82962; 83605; 83690; 83735; 83930; 84100; 84443; 85025; 85610; 85730; 93005; 94640; 94668; 99284; Q9967; A4216; J2405